=== PATIENT | female | born 1960 | race Caucasian/White ===

== ENCOUNTER 2016-10-06 11:43 | Emergency (ER) | payer OTHER ==
[2016-10-06 12:23] VITALS: BP 127/96
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
== END 2016-10-06 12:42 | disposition short-term general hospital (02) ==
LOC: UCEAST 11:43
DX: R42 Dizziness and giddiness (principal); R41.82 Altered mental status, unspecified; J45.909 Unspecified asthma, uncomplicated; G43.909 Migraine, unspecified, not intractable, without status migrainosus; F32.9 Major depressive disorder, single episode, unspecified; F41.9 Anxiety disorder, unspecified; Z90.49 Acquired absence of other specified parts of digestive tract; Z88.1 Allergy status to other antibiotic agents; Z88.5 Allergy status to narcotic agent; Z88.0 Allergy status to penicillin; Z88.2 Allergy status to sulfonamides; Z91.048 Other nonmedicinal substance allergy status
CPT/HCPCS: 93005; 99213; G0463

== ENCOUNTER 2016-10-06 13:10 | Emergency (ER) | payer OTHER ==
[2016-10-06] MEDS ORDERED: Diazepam TAB(*) 5 MG PO ONE (14:54)
[2016-10-06] MEDS ORDERED: NS 0.9% 1000 ML* 1,000 ML IV ONE (14:54)
[2016-10-06 15:11] LABS: Hematocrit 39 % (35-47); Hemoglobin 12.7 g/dl (12.0-16.0); Mean Corpuscular HGB Conc 33 g/dl (31-36); Mean Corpuscular Hemoglobin 31 pg (27-31); Mean Corpuscular Volume 93 fL (80-97); Mean Platelet Volume 9 um3 (7.4-10.4); Red Blood Count 4.13 10^6/ul (4.0-5.4); Red Cell Distribution Width 14 % (10.5-15); White Blood Count 5.7 10^3/ul (3.5-10.8)
--- NOTE | 2016-10-06 15:26 | RAD ---
Indication: Ataxia. Loss of balance. Memory loss. Question CVA or intracranial hemorrhage. Comparison: September 26, 2015 CT. Technique: Noncontrast CT vertex of skull through foramen magnum. Report: The sulci, ventricles, and basal cisterns are normal for age. Knight matter white matter differentiation is preserved without evidence for edema. No intra or extra axial hemorrhage, mass, or fluid collection detected. Unremarkable visualized orbital contents. Unremarkable calvarium and skull base. Unremarkable scalp. The visualized paranasal sinuses and mastoid air spaces are clear. IMPRESSION: Negative unenhanced head CT.
[2016-10-06 15:27] LABS: Albumin 3.8 g/dL (3.2-5.2); BUN/Creatinine Ratio 14.5 (8-20); Calcium 8.8 mg/dL (8.6-10.3); EGFR African American 91.8 (>60); EGFR Non-African American 71.4 (>60); Globulin 2.9 g/dL (2-4); Magnesium 2.2 mg/dL (1.9-2.7); Potassium 3.4 mmol/L (3.5-5.0); Total Bilirubin 0.4 mg/dL (0.2-1.0); Total Protein 6.7 g/dL (6.4-8.9)
--- NOTE | 2016-10-06 15:30 | RAD ---
Indication: Loss of balance, memory loss. CT of the cervical spine was obtained in the axial plane. Sagittal and coronal reconstructed images were obtained. Mastoid air cells and paranasal sinuses are unremarkable. The C1 ring is intact. No fractures identified. Degenerative changes of the atlantoaxial joint is noted. At C2-C3, C3-C4 there is no disc protrusion. No central foraminal stenosis is noted. At C4-C5 minimal ventral osteophyte formation is noted. No dorsal osteophyte formation is noted. No central or foraminal stenosis is noted. At C5-C6 minimal ventral osteophyte formation is noted. No central or foraminal stenosis is noted. At C6-C7 no focal protrusion is identified. No central or foraminal stenosis is noted. At C7-T1 no disc protrusion is identified. The lung apices are grossly unremarkable. IMPRESSION: NO FRACTURE OF THE CERVICAL SPINE IS NOTED. DEGENERATIVE JOINT DISEASE AT THE ATLANTOAXIAL JOINT IS NOTED. MINIMAL DEGENERATIVE DISC DISEASE WITHOUT PROTRUSION OR CENTRAL OR FORAMINAL STENOSIS IS NOTED AT C4-C5, C5-C6 AND C6-C7.
[2016-10-06 15:58] LABS: TSH (Thyroid Stimulating Horm) 1.63 mcIU/mL (0.34-5.60)
[2016-10-06 16:04] VITALS: BP 117/71
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
== END 2016-10-06 16:37 | disposition home or self-care (01) ==
LOC: ED 13:10
DX: H83.09 Labyrinthitis, unspecified ear (principal); S16.1XXA Strain of muscle, fascia and tendon at neck level, initial encounter; X50.9XXA Other and unspecified overexertion or strenuous movements or postures, initial encounter; Y92.9 Unspecified place or not applicable; M50.320 Other cervical disc degeneration, mid-cervical region, unspecified level
CPT/HCPCS: 36415; 70450; 72125; 80053; 83605; 83735; 84443; 84484; 85025; 93005; 96360; 99283; A9270-GY

== ENCOUNTER 2017-03-13 21:09 | Emergency (ER) | payer OTHER ==
[2017-03-13 21:24] VITALS: BP 115/56
[2017-03-14] MEDS ORDERED: Acetaminophen ADULT LIQ* 650 MG/20.3 ML UDC PO ONE (00:18)
--- NOTE | 2017-03-14 00:36 | ED ---
Lower Extremity - HPI Summary HPI Summary: Pt here w/ Rt ankle pain which she noticed after waking and walking around this morning. Has developed swelling along the lateral aspect and has tightness going into leg as day went on. Has pain with weight bearing but is able to do so. Denies redness, numbness, tingling, weakness. No known injury or overuse and no h/o injury here. Denies gout and no recent use of anbx or steroids. H/o Left ankle pain last year around this time w/o known cause. Was tested for infection, Lyme, and gout then - all negative. NOTE: pt has GERD w/ dysphagia and scheduled to have endoscopy in the morning. Multiple drug allergies. When asked about reactions for each, she simply states "my throat closes". - History of Current Complaint Chief Complaint: EDExtremityLower Stated Complaint: RT ANKLE INJURY Time Seen by Provider: 03/13/17 23:52 Hx Obtained From: Patient, Family/Ware Server - friend Hx Last Menstrual Period: tubal Pain Intensity: 8 - Allergies/Home Medications Allergies/Adverse Reactions: Allergies Allergy/AdvReac Type Severity Reaction Status Date / Time Adhesive Tape Allergy Rash Verified 03/13/17 21:26 Cephalexin [From Keflex] Allergy Hives/Diff. Verified 03/13/17 21:26 Breathing/I tching Ketorolac Tromethamine Allergy Vomiting Verified 03/13/17 21:26 [From Toradol] Oxycodone [From Percocet] Allergy Swelling Verified 03/13/17 21:26 Of Face,Lips,& Throat Penicillins [PCN] Allergy Hives/Diff. Verified 03/13/17 21:26 Breathing/I tching Sulfa Drugs Allergy Hives/Diff. Verified 03/13/17 21:26 Breathing/I tching Tigecycline [From Tygacil] Allergy Hives/Diff. Verified 03/13/17 21:26 Breathing/I tching Hydromorphone [From Dilaudid] AdvReac Hives/Diff. Verified 03/13/17 21:26 Breathing/I tching Morphine AdvReac Hives/Diff. Verified 03/13/17 21:26 Breathing/I tching PMH/Surg Hx/FS Hx/Imm Hx Previously Healthy: Yes Endocrine/Hematology History: Reports: Hx Anemia Denies: Hx Anticoagulant Therapy, Hx Diabetes, Hx Systemic Lupus Erythematosus, Hx Thyroid Disease, Autoimmune Disease Cardiovascular History: Denies: Hx Hypertension, Hx Pacemaker/ICD Respiratory History: Reports: Hx Asthma Denies: Hx Chronic Obstructive Pulmonary Disease (COPD) GI History: Reports: Hx Gastroesophageal Reflux Disease - REPAIRED IN 2010- WITH REVISION OF LAP BANDING, Hx Hiatal Hernia - REPAIRED IN 2010- WITH REVISION OF LAP BANDING Denies: Hx Ulcer History: Denies: Hx Dialysis, Hx Renal Disease Musculoskeletal History: Reports: Hx Arthritis - BACK, LEFT SHOULDER Sensory History: Reports: Hx Contacts or Glasses Denies: Hx Hearing Aid Opthamlomology History: Reports: Hx Contacts or Glasses Neurological History: Reports: Hx Headaches, Hx Migraine - OCCASION- TREATS WITH REST AND TYLENOL, Other Neuro Impairments/Disorders - 3 SX'S FUSIONS L SPINE MOST RECENT 12 [place] Denies: Hx Dementia, Hx Seizures Psychiatric History: Reports: Hx Anxiety - ON MEDICATION FOR, Hx Depression Denies: Hx Panic Disorder, Hx Substance Abuse - Surgical History Surgery Procedure, Year, and Place: LUMBAR SURGERY X 3 - 2011;. GALLBLADDER REMOVED ;. TONSILECTOMY ;. TUBAL LIGATION ;. LAPBAND 2007 AND REVISION 2010; . POLYPS/CYSTS REMOVED FRON UTERUS & CERVIX ;. ANAL FISSURE;. PINKY FINGER RIGHT CUT TENDON/REPAIR ; Hx Anesthesia Reactions: Yes - RESPIRATIONS VERY LOW- WITH SURGERIES- - Immunization History Date of Tetanus Vaccine: unknnown Infectious Disease History: No Infectious Disease History: Denies: Hx Clostridium Difficile, Hx Hepatitis, Hx Human Immunodeficiency Virus (HIV), Hx of Known/Suspected MRSA, Hx Shingles, Hx Tuberculosis, Hx Known/ Suspected VRE, Hx Known/Suspected VRSA, History Other Infectious Disease, Traveled Outside the [place] in Last 30 Days - Family History Known Family History: Positive: Other - mother and sister have gout Negative: Diabetes Family History: negative for DM2 - Social History Occupation: Disabled - back issues Lives: Alone Alcohol Use: None Hx Substance Use: No Substance Use Type: Reports: None Hx Tobacco Use: No Smoking Status (MU): Never Smoked Tobacco Review of Systems Constitutional: Negative Negative: Fever, Chills, Fatigue Cardiovascular: Negative Negative: Palpitations, Chest Pain Respiratory: Negative Negative: Shortness Of Breath, Cough Gastrointestinal: Negative Positive: no symptoms reported Musculoskeletal: Other - see HPI Skin: Negative Negative: Rash, Bruising Neurological: Negative Psychological: Normal All Other Systems Reviewed And Are Negative: Yes Physical Exam Triage Information Reviewed: Yes Vital Signs On Initial Exam: Initial Vitals Temp Pulse Resp BP Pulse Ox 97.8 F 74 16 115/56 97 03/13/17 21:20 03/13/17 21:20 03/13/17 21:20 03/13/17 21:20 03/13/17 21:20 Vital Signs Reviewed: Yes Appearance: Positive: Well-Appearing, No Pain Distress, Obese Skin: Positive: Warm, Dry - no erythema, no ecchymosis, no fever to touch over Rt lateral malleolus but has mild edema here Head/Face: Positive: Normal Head/Face Inspection Eyes: Positive: EOMI ENT: Positive: Hearing grossly normal Respiratory/Lung Sounds: Positive: Breath Sounds Present Cardiovascular: Positive: Pulses are Symmetrical in both Upper and Lower Extremities. Negative: Leg Edema Left - (-) Natalee's B/L, Leg Edema Right Musculoskeletal: Positive: Normal, Strength/ROM Intact, Pain @ - pt reports Rt anterior ankle joint is tender and sore; lateral malleolus w/ mild TTP; MT's are NTTP Neurological: Positive: Normal, Sensory/Motor Intact, Alert, Oriented to Person Place, Time Psychiatric: Positive: Normal - Emmett Coma Scale Coma Scale Total: 15 Diagnostics - Vital Signs Vital Signs Temp Pulse Resp BP Pulse Ox 03/13/17 21:20 97.8 F 74 16 115/56 97 - Laboratory Diagnostic Studies Comment: wet read Rt ankle: no acute fx or dislocation Lab Statement: Any lab studies that have been ordered have been reviewed, and results considered in the medical decision making process. Lower Extremity Course/Dx - Course Course Of Treatment: Definitive cause of ankle swelling is unknown at this time however does not appear to be infected or with gout so no labs were drawn. Appears to have mild edema about the lateral aspect which could be chronic or acute but does not appear to be of significant pathology from an emergency standpoint. Offered pt ROSALINA wrap and crutches - she will f/u w/ PCP. Reviewed danger s/sx of when to return to ED. - Diagnoses Provider Diagnoses: Right ankle swelling Discharge - Discharge Plan Condition: Stable Disposition: HOME Patient Education Materials: Arthralgia (ED), Crutch Instructions (ED) Referrals: Lui Samson MD [Primary Care Provider] - Additional Instructions: Rest, ice, elevate Use crutches to avoid weight bearing for pain - when you do bear weight, use supportive footwear to prevent instability You may take liquid acetaminophen for pain Follow-up with PCP - call to schedule an appointment *If you develop redness, streaking, warmth, fever, chills, return to ED
--- NOTE | 2017-03-14 08:10 | RAD ---
HISTORY: Right ankle swelling pain with weightbearing COMPARISONS: April 06, 2010 VIEWS: 3, Frontal, lateral, and oblique views of the right ankle FINDINGS: BONE DENSITY: Normal. BONES: There is no displaced fracture. There is a small plantar calcaneal enthesophyte. JOINTS: There is no arthropathy. ALIGNMENT: There is no dislocation. SOFT TISSUES: Unremarkable. OTHER FINDINGS: None. IMPRESSION: NO ACUTE OSSEOUS INJURY. IF SYMPTOMS PERSIST, RECOMMEND REPEAT IMAGING.
== END 2017-03-14 01:42 | disposition home or self-care (01) ==
LOC: ED 21:09
DX: M25.471 Effusion, right ankle (principal); D64.9 Anemia, unspecified; J45.909 Unspecified asthma, uncomplicated; K21.9 Gastro-esophageal reflux disease without esophagitis; G43.909 Migraine, unspecified, not intractable, without status migrainosus; E66.9 Obesity, unspecified; Z90.49 Acquired absence of other specified parts of digestive tract; Z88.1 Allergy status to other antibiotic agents; Z88.5 Allergy status to narcotic agent; Z88.0 Allergy status to penicillin; Z88.2 Allergy status to sulfonamides
CPT/HCPCS: 99282; A9270-GY

== ENCOUNTER 2017-05-20 15:49 | Emergency (ER) | payer OTHER ==
[2017-05-20 16:49] VITALS: BP 111/66
--- NOTE | 2017-05-20 16:51 | UC ---
Throat Pain/Nasal Jimi HPI - HPI Summary HPI Summary: 57 year old female presents with complains of cough and sore throat. - History of Current Complaint Chief Complaint: UCRespiratory Stated Complaint: COUGH,ST,EAR PAIN Time Seen by Provider: 05/20/17 16:50 Hx Obtained From: Patient Hx Last Menstrual Period: age 50 Onset/Duration: Sudden Onset Severity: Moderate Pain Scale Used: 0-10 Numeric Cough: Nonproductive Associated Signs & Symptoms: Positive: Negative - Epiglottits Risk Factors Epiglottis Risk Factors: Negative - Allergies/Home Medications Allergies/Adverse Reactions: Allergies Allergy/AdvReac Type Severity Reaction Status Date / Time Adhesive Tape Allergy Rash Verified 05/20/17 16:50 Cephalexin [From Keflex] Allergy Hives/Diff. Verified 05/20/17 16:50 Breathing/I tching Ketorolac Tromethamine Allergy Vomiting Verified 05/20/17 16:50 [From Toradol] Oxycodone [From Percocet] Allergy Swelling Verified 05/20/17 16:50 Of Face,Lips,& Throat Penicillins [PCN] Allergy Hives/Diff. Verified 05/20/17 16:50 Breathing/I tching Sulfa Drugs Allergy Hives/Diff. Verified 05/20/17 16:50 Breathing/I tching Tigecycline [From Tygacil] Allergy Hives/Diff. Verified 05/20/17 16:50 Breathing/I tching Hydromorphone [From Dilaudid] AdvReac Hives/Diff. Verified 05/20/17 16:50 Breathing/I tching Morphine AdvReac Hives/Diff. Verified 05/20/17 16:50 Breathing/I tching Home Medications: Home Medications Aspirin [Aspirin 81 MG TAB] 1 tab PO DAILY 05/20/17 [History Confirmed 05/20/17] PMH/Surg Hx/FS Hx/Imm Hx Previously Healthy: Yes Other History Of: Negative For: Anticoagulant Therapy - Surgical History Surgical History: Yes Surgery Procedure, Year, and Place: LUMBAR SURGERY X 3 - 2012;. GALLBLADDER REMOVED ;. TONSILECTOMY ;. TUBAL LIGATION ;. LAPBAND 2007 AND REVISION 2010; . POLYPS/CYSTS REMOVED FRON UTERUS & CERVIX ;. ANAL FISSURE;. PINKY FINGER RIGHT CUT TENDON/REPAIR ; - Family History Known Family History: Positive: Other - mother and sister have gout Negative: Diabetes Family History: negative for DM2 - Social History Alcohol Use: None Substance Use Type: None Smoking Status (MU): Never Smoked Tobacco Review of Systems Constitutional: Negative Skin: Negative Eyes: Negative ENT: Negative, Nasal Discharge Respiratory: Cough Cardiovascular: Negative Gastrointestinal: Negative Genitourinary: Negative Motor: Negative Neurovascular: Negative Musculoskeletal: Negative Neurological: Negative Psychological: Negative All Other Systems Reviewed And Are Negative: Yes Physical Exam Triage Information Reviewed: Yes Appearance: Well-Appearing Vital Signs: Initial Vital Signs Temp 37.0 C 05/20/17 16:44 Pulse 71 05/20/17 16:44 Resp 16 05/20/17 16:44 BP 111/66 05/20/17 16:44 Pulse Ox 98 05/20/17 16:44 Vital Signs Reviewed: Yes Eye Exam: Normal ENT Exam: Normal Dental Exam: Normal Neck exam: Normal Neck: Positive: 1 Respiratory: Positive: Wheezing Cardiovascular Exam: Normal Abdominal Exam: Normal Musculoskeletal Exam: Normal Neurological Exam: Normal Psychological Exam: Normal Skin Exam: Normal Throat Pain/Nasal Course/Dx - Differential Dx/Diagnosis Provider Diagnoses: cough. wheezing Discharge - Discharge Plan Condition: Stable Disposition: HOME Prescriptions: Albuterol HFA INHALER* [Ventolin HFA Inhaler*] 1 puff INH Q6H PRN #1 mdi PRN Reason: Wheezing LoraTADine TAB(NF) [Claritin 10 MG TAB(NF)] 10 mg PO DAILY #30 tab Methylprednisolone [Medrol Dosepak 4 MG*] 4 mg PO .SEE ELDER INSTRUCTION #21 tab Patient Education Materials: Allergic Rhinitis (ED) Referrals: Lui Samson MD [Primary Care Provider] -
== END 2017-05-20 17:55 | disposition home or self-care (01) ==
LOC: UCEAST 15:49
DX: R05 Cough (principal); R06.2 Wheezing; J02.9 Acute pharyngitis, unspecified; H92.09 Otalgia, unspecified ear; Z88.8 Allergy status to other drugs, medicaments and biological substances; Z88.1 Allergy status to other antibiotic agents; Z88.5 Allergy status to narcotic agent; Z88.0 Allergy status to penicillin; Z88.2 Allergy status to sulfonamides
CPT/HCPCS: 87651; 99212; G0463

== ENCOUNTER 2017-08-09 18:43 | Emergency (ER) | payer OTHER ==
--- OUTSIDE RECORDS SUMMARY | 2017-08-09 19:32 | XMS REPORT ---
:1960 External Reference #:[id number] Author Organization [facility] Address [address] [address] Phone [phone] Care Team Providers Name Role Phone Lui Samson MD Primary Care Physician Unavailable Payers Type Date Identification Numbers Payment Provider Subscriber Commercial Policy Number: [id number] Agustín [employer] Number: [id number] [address] PayID: [id number] [place] [address] Commercial Effective: Policy Number: Dennis[employer] Keena Coates 2012 [id number] Medicaid Expires: 2012 PayID: [id number] [address] [address] [place] [address] Commercial Expires: 2012 Policy Number: [id number] Agustín Coates Group Name: CHAS# [id number] [address] PayID: [id number] [place] [address] Problems Date Description Provider Status Onset: 04/12/2011 Bariatric Surgery Status Tarsha Underwood M.D. Active Onset: 06/09/2011 Mild recurrent major depression Tarsha Underwood M.D. Active Onset: 01/08/2012 Asthma without status asthmaticus Tarsha Undewrood M.D. Active Onset: 06/24/2014 Low back pain Kevin Cottrell M.D. Active Onset: 09/05/2016 Gastroesophageal reflux disease Lui Samson M.D. Active Onset: 10/17/2016 Mixed hyperlipidemia Lui Samson M.D. Active Onset: 01/30/2017 Essential hypertension Lui Samson M.D. Active Onset: 01/30/2017 Obesity Lui Samson M.D. Active Onset: 02/13/2017 Migraine without aura, not Morenita Salinas MD Active refractory Onset: 07/17/2017 Insomnia Lui Samson M.D. Active Onset: 10/09/2016 Transient cerebral ischemia Lui Samson M.D. Inactive Inactive: 10/13/2016 Onset: 04/12/2011 Tietze's disease Tarsha Underwood M.D. Inactive Inactive: 07/17/2017 Onset: 06/23/2011 Localized, primary osteoarthritis of the Tarsha Underwood M.D. Inactive shoulder region Inactive: 07/17/2017 Onset: 08/17/2015 Thoracic and lumbosacral neuritis Lui Samson M.D. Inactive Inactive: 07/17/2017 Onset: 08/17/2015 Arthralgia of the pelvic region and Lui Samson M.D. Inactive thigh Inactive: 07/17/2017 Onset: 09/05/2016 Lateral epicondylitis Lui Samson M.D. Inactive Inactive: 07/17/2017 Onset: 10/17/2016 Hematuria syndrome Lui Samson M.D. Inactive Inactive: 07/17/2017 Onset: 11/03/2016 Abnormal results function studies of Morenita Salinas MD Inactive central nervous system Inactive: 07/17/2017 Onset: 11/03/2016 Dizziness and giddiness Morenita Salinas MD Inactive Inactive: 07/17/2017 Onset: 06/09/2011 Shoulder joint pain Tarsha Underwood M.D. Inactive Inactive: 07/17/2017 Onset: 09/13/2011 Disorder of lumbar disc Tarsha Underwood M.D. Inactive Inactive: 07/17/2017 Onset: 02/13/2017 Dysphagia Morenita Salinas MD Inactive Inactive: 07/17/2017 Onset: 03/29/2011 Deficiency anemias Tarsha Underwood M.D. 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 5 children, many still in local area, most doing very well (jobs, college, etc) and she is quite proud, was single parent denies drugs, etoh Allergies, Adverse Reactions, Alerts Date Description Reaction Status Severity Comments 03/29/2011 Sulfa hives, throat closes active Mild to Moderate 03/29/2011 Keflex hives, throat closes active Mild to Moderate 03/29/2011 Tygacil hives, throat closes active Mild to Moderate 03/29/2011 Dilantin throat closes, hives active Mild to Moderate 03/29/2011 Penicillin hives, throat closes active Mild to Moderate 07/28/2011 Morphine low resp. rate active 07/28/2011 Tape Urticaria active Mild to Moderate paper tape 03/03/2014 Percogesic active Severe 06/24/2014 Percocet Anaphylaxis active Severe Medications Medication Date Status Form Strength Qnty SIG Indications Ordering Provider Zolpidem 07/17 Active Tablets 5mg 30tab 1 tab G47.00 Gibson Tartrate s daily at [place], bedtime M.D. Dulera 07/17 Active Aerosol 200-5mcg/ 8.800 2 puff J45.909 Act gm twice a [place], day M.D. Montelukast 07/17 Active Tablets 10mg 30tab once daily J45.909 Lui Sodium s Karol Samson Famotidine 01/30 Active Tablets 40mg 30tab 1 by mouth K21.9 s every day [place], 1 hour M.D. after dinner Ventolin HFA 01/30 Active Aerosol 108(90Bas 8gm 2 puffs by J45.909 e) mouth four [place], mcg/Act times a M.D. day as needed Wrist Splint 07/05 Active Misc 1unit wear daily M79.642 Darin s remove to Pashto, LASER SPECIALIST shower x2 weeks Cane/Aluminum/Ad 08/16 Active Misc 1unit diagnosis: M51.16 Lui justable/Bronze /2015 s lumbar [place], Tone/Standard disc M.D. Handle disease Jobst Trouser 01/07 Active Misc 1Pair 1 pair prn 782.3 Eusebio 8-15MMHG/Knee /2011 to lower Flores, LASER SPECIALIST High/Women/Mediu legs m Citalopram Active Tablets 20mg 30tab 1 every Alfredo Hydrobromide / s day Shahnaz Trevizo M.D.,FACP Tylenol PM Extra Active Tablets 500-25mg 1 tab by Unknown Strength /0000 mouth every 6 hours as needed Aspirin Adult Active Tablets DR 81mg 1 by mouth Unknown Low Dose /0000 every day Levofloxacin 03/27 Hx Tablets 500mg 10tab once daily J06.9 s Josh Samson M.D. 04/10 Rizatriptan 02/13 Hx Tablets 5mg 9tabs 1 at onset G43.009 Morenita Benzoate /2016 Dispers of MD Brad - migraine. 04/10 in 2 hours if needed. do not use more than 2x/week Zolpidem 02/05 Hx Tablets 5mg 30tab 1 tab G47.00 Lui Tartrate s daily at [facility], - bedtime M.D. 07/17 Zolpidem 01/30 Hx Tablets 10mg 30tab 1/2 to 1 G47.00 Gibson Tartrate s tab by Mal[place], - mouth M.D. 02/05 night at bedtime as needed Prednisone 11/29 Hx Tablets 50mg 3tabs take 1 tab Morenita by mouth MD Brad - 13 hours, 02/12 7hrs and hour before ct Diphenhydramine 11/29 Hx Capsules 50mg 1caps 1 by mouth Morenita HCL 1 hour MD Brad - before 02/12 contrast. Potassium 10/17 Hx Tablets 75mg 30tab 1 by mouth Alfredo s every day Josh Hollingsworth M.D.,[facility] 10/19 Klor-Con 10 10/13 Hx Tablets ER 10Meq 30tab 1 by mouth s every day Josh Hollingsworth M.D.,[facility] 02/12 Diclofenac 09/05 Hx Gel 1% 100gm apply 2 M77.11 Lui times [place], - daily M.D. 10/19 Meloxicam 09/05 Hx Tablets 15mg 30tab once daily M77.11 s with food [place], - M.DDoug 10/19 Ibuprofen 07/05 Hx Tablets 400mg 90tab 1 tab by M79.642 Darin s mouth MICHAELLE Luna - every 6- 8 three times a day as needed: take w/ food Clarithromycin 06/30 Hx Tablets 500mg 14tab 1 by mouth s twice a Shahnaz Trevizo, - day for 7 M.DDoug,[facility] Cheratussin ac 06/30 Hx Syrup 100-10mg/ 236ml 10 5ML milliliter Shahnaz Trevizo, - s by mouth Deanne.Shahnaz,[facility] 10/13 four times a day as needed Pantoprazole 01/[address] 20mg 60tab 1 tab K21.9 Lui Sodium s twice a [place], - day M.D. 02/12 Rizatriptan 01/10 Hx Tablets 10mg 12tab use at G43.019 Lui Benzoate /2015 s onset of [place], - headache M.D. 10/13 after 2 h as needed Metoprolol 01/10 Hx Tablets 25mg 60tab 1 by mouth G43.019 Lui Tartrate /2015 s twice a [place], - day M.D. 07/02 Sumatriptan 12/31 Hx Tablets 25mg 9tabs 1 tab Other Q8hrs prn Ordering - migraine Provider 01/10 Macrobid 12/31 Hx Capsules 100mg 9caps 1 tab by Other mouth Ordering - twice a Provider 01/05 day x days Hydrocortisone 12/31 Hx Ointment 0.2% 15gm apply to Other Val rash bid x Ordering - 2 weeks Provider 01/10 Cipro 12/09 Hx Tablets 250mg 14tab 1 tablet N39.0 s by mouth MICHAELLE Luna - twice a 01/10 day x's days Flovent HFA 11/10 Hx Aerosol 110mcg/Ac 1unit 2 puffs t s twice [place], - daily M.D. 07/17 Azithromycin 11/08 Hx Tablets 250mg 6tabs 2 tab J20.9 today and [place], - then 1tab M.D. 12/02 Zyrtec Allergy 10/31 Hx Tablets 10mg 30tab 1 by mouth J30.9 s every day MICHAELLE Luna - for the 01/10 next 3- weeks, then as needed Meloxicam 08/16 Hx Tablets 15mg 30tab once daily M25.552 s with food [place], - M.D. 01/10 Hydrocodone-Acet 08/16 Hx Tablets 5-325mg 45tab 1 tab M51.16 Lui aminophen s every 8h [place], - as needed M.D. 10/13 Levofloxacin 04/08 Hx Tablets 500mg 7tabs 1 tablt by J06.9 mouth Brody, - every day M.D. 06/04 Levofloxacin 12/25 Hx Tablets 500mg 5tabs 1 tablt by J06.9 mouth Brody, - every day M.D. 03/02 Pantoprazole 09/[address] 40mg 30tab 1 by mouth K21.9 Alcides Sodium s every day Brody, - M.D. 01/10 Naproxen 08/25 Hx Tablets 500mg 30tab 1 tablet M54.89 Alcides s by mouth Brody, - twice a M.D. 08/16 day foods as needed pain Cyclobenzaprine 08/25 Hx Tablets 10mg 90tab one by M54.89 Lui HCL s mouth [place], - three M.D. 10/19 times day as needed spasm Asmanex 06/09 Hx Aerosol 220mcg/In 1unit 1 puff po J45.20 Darin Livingston 120 h s bid MICHAELLE Luna Metered Doses - 11/10 Lasix 05/12 Hx Tablets 20mg 5tabs 1 tablet po daily Brody, - in am M.D. 08/20 Cyclobenzaprine 04/24 Hx Tablets 10mg 60tab one by 722.93 Alcides HCL s mouth Brody, - three M.D. 08/26 times day as needed spasm Ibuprofen 03/31 Hx Tablets 800mg 60tab by mouth 719.42 s three Brody, - times a M.D. 08/16 day needed Mucinex 03/03 Hx Tablets ER 600mg 60tab 1 tab by 465.8 12HR s mouth q12 MICHAELLE Flores - hours 06/09 Omeprazole 01/[address] 20mg 30cap 1 by mouth 530.81 Johana /2014 s every day Varn, N.P. - 09/08 Naproxen 09/12 Hx Tablets 375mg 60tab take 1 719.42 s tablet Kj, - twice M.D. 03/31 daily for pain control Ranitidine HCL 09/02 Hx Capsules 150mg 60cap one 535.00 s capsule Varn, N.P. - every 12 Iron 06/27 Hx Tablets 325(65Fe) 90tab 1 po qd mg s Kj, - M.D. 06/27 Proair HFA 06/27 Hx Aerosol 108(90Bas 1unit 2 puffs by Darin e) s mouth MICHAELLE Luna - mcg/Act every 4 10/19 hours needed Cyclobenzaprine 06/27 Hx Tablets 5mg 60tab Take 1-2 722.93 s tablets at Underwood, - night for M.D. 04/24 back pain Gabapentin 06/27 Hx Capsules 100mg 90cap take 1 M54.89 s tablet Ronn, - three to M.D. 08/16 four times daily for pain Cyclobenzaprine 03/21 Hx Tablets 5mg 60tab Take 1-2 722.93 Tarsha HCL s tablet Kj, - three M.D. 06/27 times daily for back pain Gabapentin 03/21 Hx Capsules 300mg 30cap Take 1-2 724.5 s tablets at Underwood, - night M.D. 06/27 Percocet 12/10 Hx Tablets 5-325mg 30tab 1 po qhs 724.5 s prn pain Kj, - M.D. 06/27 Carafate 08/30 Hx Suspension 1GM/10ML 420ml take 2 530.12 teaspoonfu Kj, - ls by M.D. 09/16 mouth times a day before meals and at bedtime Calcium 08/05 Hx Chewtabs 260mg 30uni take 1-2 530.12 Carbonate ts tablets Kj, - every 4-6 M.D. 08/30 hours as needed for heartburn Carafate 08/05 Hx Suspension 1GM/10ML 420ml take 2 530.12 teaspoonfu Kj, - ls by M.DDoug 08/30 mouth times a day before meals and at bedtime Acetaminophen 04/24 Hx Capsules 500mg 100ca take 2 ps tablets Kj, - three M.D. 12/10 daily as needed Oxycodone HCL 03/15 Hx Capsules 5mg 28cap 1-2 722.93 s capsules Kj, - at night M.D. 05/31 as needed for pain Trazodone HCL 03/15 Hx Tablets 50mg 30tab take 05/22 722.93 s to 1 Kj, - tablet M.D. 04/03 night as needed for sleep Iron 01/30 Hx Tablets 325(65Fe) 60tab 1 tablet 281.9 mg s by mouth Kj, - twice M.D. 05/31 daily Proair HFA 11/16 Hx Aerosol 108(90Bas 1unit 2 puffs po e) mcg/ac s q4h prn Josh Underwood.DDoug 06/27 Ibuprofen 10/31 Hx Tablets 800mg 60tab take 1 s tablet Kj, - three M.DDoug 04/24 daily with food for 20 days. Cyclobenzaprine 10/12 Hx Tablets 5mg 60tab Take 1-2 722.93 Tarsha HCL s tablet Kj, - three M.D. 02/03 times daily for back pain Tramadol HCL 10/12 Hx Tablets 50mg 60tab take 1-2 722.93 Tarsha s tablets by Kj, - mouth M.D. 08/30 every hours as needed Hydrocodone/Acet 07/11 Hx Tablets 5-325mg 30tab 1 tablet 724.5 Milagros aminophen s every 4 - Cotton, - 6 hours as M.D. 09/12 needed for pain Cyclobenzaprine 07/11 Hx Tablets 5mg 30tab 1 by mouth 724.5 Milagros HCL s at bedtime Patrick, - as needed M.D. 09/12 for back pain Medrol Dosepak 07/11 Hx Tablets 4mg 1pak as 724.5 Milagros directed Josh Nguyen M.DDoug 09/12 Citalopram 06/09 Hx Tablets 20mg 30tab 1 po qd 296.31 Tarsha Hydrobromide s Josh Underwood M.D. 09/02 Citalopram 05/10 Hx Tablets 10mg 30tab take 2 296.31 Tarsha Hydrobromide s tablet Kj, - daily. M.D. 07/05 Lexapro 04/26 Hx Tablets 10mg 60tab 1 tablet 296.31 Tarsha s daily for Kj, - 1 week, M.D. 05/10 then tablets daily Ibuprofen 04/12 Hx Tablets 600mg 21tab 1 tablet 733.6 s margarette Underwood, - times M.D. 05/10 daily with food x 7 days Vitamin D-1000 04/12 Hx Tablets 1000Unit 90tab 1 po qd V45.86 Josh Cortes M.D. 09/12 Multivitamins 04/12 Hx Tablets 90tab 1 po qd V45.86 s Josh Underwood M.D. 05/10 Calcium Citrate 04/12 Hx Tablets 950mg 180ta Take 2 V45.86 bs tablets Kj, - twice M.D. 09/12 Iron Supplement 03/29 Hx Tablets 375mg po qd Josh Underwood M.DDoug 04/12 Iron 03/29 Hx Tablets 325(65Fe) 60tab 1 tablet 281.9 mg s by mouth Kj - twice M.D. 04/26 Ambien Hx Tablets 5mg 30tab 1 po Unknown /0000 s tablet at - bedtime 01/07 prn Trazodone HCL Hx Tablets 50mg 30tab take 05/22 Unknown /0000 s tablet at - bedtime, 09/12 1 time Vicodin Hx Tablets 5-500mg 30tab 1-2 by Unknown /0000 s mouth - every 4-6 needed for pain Prilosec Hx Capsules DR 20mg 30cap 1 po qd Unknown /0000 s - 09/12 Vitamin C Hi Hx Capsules ER 500mg 2 po qd Unknown Potency /0000 - 08/05 Vitamin B-12 TR Hx Tablets ER 1000mcg 1 po qd Unknown /0000 - 08/05 Oxycodone/Acetam Hx Tablets 5-325mg 60tab 2 tabs po 722.93 Unknown inophen /0000 s q 4 hrs - prn pain 03/15 Diazepam Hx Tabs 5mg 1 po qd Unknown /0000 - 04/03 Aspirin Hx Chewtabs 81mg 30uni does not Unknown Childrens /0000 ts take. - 08/[address] 40mg 90cap 1 po qd Unknown /0000 s - 12/10 Percocet Hx Tablets 5-325mg 60tab 1-2 by Unknown /0000 s mouth - every 4 to 03/03 6 hours needed pain Iron 00 Hx Tablets 325(65Fe) 1 by mouth Unknown /0000 mg every day - 06/24 B-12 00 Hx Tablets Sub 500mcg 2 by mouth Unknown Microlozenge /0000 every day - 04/08 Biotin 00 Hx Tablets 1000mcg Is Not Unknown /0000 USINGonce - a day 10/13 Vitamin E 00 Hx Capsules 100Unit Is Not Unknown /0000 USINGonce - a day 10/13 Vitamin 00/ Hx Tablets 1 by mouth Unknown B-Complex /0000 every day - 10/13 Ranitidine HCL 00 Hx Tablets 75mg 1 daily in Unknown /0000 the - morning 03/27 Immunizations CPT Code Status Date Vaccine Lot # [id number] Given 09/28/2015 Pneumonia Vaccine [id number] Given 03/31/2014 Flu Vaccine Split Virus Preservative Free For [id number] Indiv 3Yr Older Vital Signs Date Vital Result Comment 07/17/2017 Weight 225.00 lb Heart Rate 71 /min BP Systolic Sitting 110 mmHg BP Diastolic Sitting 70 mmHg Body Temperature 97.5 F O2 % BldC Oximetry 94 % 07/02/2017 Height 65 inches 5'5" Weight 225.00 lb Heart Rate 74 /min BP Systolic 120 mmHg BP Diastolic 70 mmHg Respiratory Rate 18 /min Body Temperature 97.0 F BMI (Body Mass Index) 37.4 kg/m2 04/10/2017 Weight 216.50 lb Heart Rate 73 /min BP Systolic Sitting 128 mmHg BP Diastolic Sitting 74 mmHg O2 % BldC Oximetry 94 % 03/27/2017 Height 65 inches 5'5" Weight 214.50 lb Heart Rate 89 /min BP Systolic 136 mmHg BP Diastolic 66 mmHg Body Temperature 98.3 F O2 % BldC Oximetry 97 % BMI (Body Mass Index) 35.7 kg/m2 02/13/2017 Height 65 inches 5'5" Weight 211.38 lb Heart Rate 80 /min BP Systolic 106 mmHg BP Diastolic 78 mmHg BMI (Body Mass Index) 35.2 kg/m2 01/30/2017 Height 65 inches 5'5" Weight 211.00 lb Heart Rate 77 /min BP Systolic 128 mmHg BP Diastolic 76 mmHg Body Temperature 98.1 F O2 % BldC Oximetry 96 % BMI (Body Mass Index) 35.1 kg/m2 11/03/2016 Height 65 inches 5'5" Weight 210.12 lb Heart Rate 74 /min BP Systolic Sitting 98 mmHg BP Diastolic Sitting 72 mmHg Respiratory Rate 17 /min BMI (Body Mass Index) 35.0 kg/m2 10/17/2016 Height 65 inches 5'5" Weight 210.50 lb Heart Rate 76 /min BP Systolic 112 mmHg BP Diastolic 68 mmHg Body Temperature 97.3 F O2 % BldC Oximetry 96 % BMI (Body Mass Index) 35.0 kg/m2 10/13/2016 Weight 211.12 lb Heart Rate 70 /min BP Systolic 118 mmHg BP Diastolic 72 mmHg Body Temperature 97.3 F O2 % BldC Oximetry 97 % 10/09/2016 Weight 210.38 lb Heart Rate 71 /min BP Systolic Sitting 120 mmHg BP Diastolic Sitting 88 mmHg Body Temperature 98.0 F O2 % BldC Oximetry 98 % 09/05/2016 Weight 207.50 lb Heart Rate 94 /min BP Systolic Sitting 100 mmHg BP Diastolic Sitting 70 mmHg Body Temperature 97.4 F O2 % BldC Oximetry 98 % 07/05/2016 Height 65 inches 5'5" Weight 204.12 lb Heart Rate 70 /min BP Systolic Sitting 108 mmHg BP Diastolic Sitting 64 mmHg Body Temperature 97.5 F O2 % BldC Oximetry 97 % BMI (Body Mass Index) 34.0 kg/m2 07/03/2016 Height 65 inches 5'5" Weight 206.00 lb Heart Rate 76 /min BP Systolic 124 mmHg BP Diastolic 80 mmHg Respiratory Rate 16 /min Body Temperature 98.0 F BMI (Body Mass Index) 34.3 kg/m2 06/30/2016 Weight 204.12 lb Heart Rate 78 /min BP Systolic Sitting 132 mmHg BP Diastolic Sitting 80 mmHg Body Temperature 98.8 F O2 % BldC Oximetry 97 % 01/11/2016 Weight 188.25 lb Heart Rate 72 /min BP Systolic Sitting 112 mmHg BP Diastolic Sitting 68 mmHg Body Temperature 98.4 F O2 % BldC Oximetry 96 % 12/10/2015 Height 65 inches 5'5" Weight 192.00 lb Heart Rate 71 /min BP Systolic 100 mmHg BP Diastolic 60 mmHg Body Temperature 97.8 F O2 % BldC Oximetry 98 % BMI (Body Mass Index) 31.9 kg/m2 12/03/2015 Height 65 inches 5'5" Weight 190.50 lb Heart Rate 61 /min BP Systolic Sitting 102 mmHg BP Diastolic Sitting 66 mmHg Respiratory Rate 16 /min Body Temperature 97.8 F Pain Level 6 Right mid to lower back and right hip O2 % BldC Oximetry 98 % BMI (Body Mass Index) 31.7 kg/m2 11/09/2015 Height 65 inches 5'5" Weight 191.00 lb Heart Rate 74 /min BP Systolic Sitting 110 mmHg BP Diastolic Sitting 70 mmHg Pain Level 4 4/10 pain scale O2 % BldC Oximetry 96 % BMI (Body Mass Index) 31.8 kg/m2 11/01/2015 Height 65 inches 5'5" Weight 192.00 lb Heart Rate 74 /min BP Systolic Sitting 122 mmHg BP Diastolic Sitting 68 mmHg Body Temperature 98.7 F O2 % BldC Oximetry 97 % BMI (Body Mass Index) 31.9 kg/m2 09/28/2015 Height 65 inches 5'5" Weight 196.00 lb Heart Rate 78 /min BP Systolic Sitting 112 mmHg BP Diastolic Sitting 70 mmHg Body Temperature 97.7 F O2 % BldC Oximetry 98 % BMI (Body Mass Index) 32.6 kg/m2 08/31/2015 Height 65 inches 5'5" Weight 198.00 lb Heart Rate 74 /min BP Systolic Sitting 110 mmHg BP Diastolic Sitting 72 mmHg Body Temperature 96.8 F Pain Level 6 6/10 O2 % BldC Oximetry 96 % BMI (Body Mass Index) 32.9 kg/m2 08/17/2015 Height 65 inches 5'5" Weight 198.00 lb Heart Rate 66 /min BP Systolic Sitting 112 mmHg BP Diastolic Sitting 78 mmHg Body Temperature 97.1 F Pain Level 8 8/10 O2 % BldC Oximetry 98 % BMI (Body Mass Index) 32.9 kg/m2 07/15/2015 Height 65 inches 5'5" Weight 198.00 lb BMI (Body Mass Index) 32.9 kg/m2 06/04/2015 Height 65 inches 5'5" Weight 200.25 lb Heart Rate 76 /min BP Systolic Sitting 104 mmHg BP Diastolic Sitting 64 mmHg Body Temperature 98.3 F O2 % BldC Oximetry 98 % BMI (Body Mass Index) 33.3 kg/m2 04/08/2015 Height 65 inches 5'5" Weight 207.50 lb Heart Rate 69 /min BP Systolic Sitting 112 mmHg BP Diastolic Sitting 58 mmHg Body Temperature 97.4 F O2 % BldC Oximetry 97 % BMI (Body Mass Index) 34.5 kg/m2 03/02/2015 Height 65 inches 5'5" Weight 209.50 lb Heart Rate 84 /min BP Systolic Sitting 116 mmHg BP Diastolic Sitting 64 mmHg Body Temperature 98.2 F O2 % BldC Oximetry 98 % BMI (Body Mass Index) 34.9 kg/m2 12/25/2014 Height 65 inches 5'5" Weight 208.00 lb Heart Rate 90 /min BP Systolic Sitting 106 mmHg BP Diastolic Sitting 78 mmHg Body Temperature 97.8 F O2 % BldC Oximetry 98 % BMI (Body Mass Index) 34.6 kg/m2 11/09/2014 Height 65 inches 5'5" Weight 211.00 lb Heart Rate 72 /min BP Systolic Sitting 120 mmHg BP Diastolic Sitting 70 mmHg Pain Level 4 back BMI (Body Mass Index) 35.1 kg/m2 09/08/2014 Height 65 inches 5'5" Weight 207.25 lb Heart Rate 70 /min BP Systolic Sitting 122 mmHg BP Diastolic Sitting 60 mmHg Body Temperature 97.7 F O2 % BldC Oximetry 96 % BMI (Body Mass Index) 34.5 kg/m2 08/26/2014 Height 65 inches 5'5" Weight 208.00 lb Heart Rate 60 /min BP Systolic 102 mmHg BP Diastolic 64 mmHg Pain Level 6 back BMI (Body Mass Index) 34.6 kg/m2 08/25/2014 Height 65 inches 5'5" Weight 210.12 lb Heart Rate 59 /min BP Systolic Sitting 108 mmHg BP Diastolic Sitting 70 mmHg Pain Level 10 10/10 O2 % BldC Oximetry 98 % BMI (Body Mass Index) 35.0 kg/m2 08/20/2014 Weight 210.00 lb Heart Rate 70 /min BP Systolic Sitting 96 mmHg BP Diastolic Sitting 72 mmHg Body Temperature 98.9 F 07/29/2014 Height 65 inches 5'5" Weight 213.00 lb Heart Rate 72 /min BP Systolic Sitting 100 mmHg BP Diastolic Sitting 60 mmHg Pain Level 6 back/r hip BMI (Body Mass Index) 35.4 kg/m2 06/24/2014 Height 65 inches 5'5" Weight 218.00 lb Heart Rate 76 /min BP Systolic Sitting 130 mmHg BP Diastolic Sitting 80 mmHg Pain Level 5 neck/back BMI (Body Mass Index) 36.3 kg/m2 06/09/2014 Weight 213.00 lb Heart Rate 76 /min BP Systolic Sitting 98 mmHg BP Diastolic Sitting 68 mmHg Body Temperature 97.2 F O2 % BldC Oximetry 98 % 04/24/2014 Weight 200.00 lb Heart Rate 76 /min BP Systolic Sitting 124 mmHg BP Diastolic Sitting 82 mmHg 03/31/2014 Height 65.75 inches 5'5.75" Weight 193.00 lb Heart Rate 70 /min BP Systolic Sitting 103 mmHg BP Diastolic Sitting 59 mmHg Body Temperature 98.0 F BMI (Body Mass Index) 31.4 kg/m2 03/03/2014 Height 65.75 inches 5'5.75" Weight 182.00 lb Heart Rate 68 /min BP Systolic Sitting 94 mmHg BP Diastolic Sitting 62 mmHg Body Temperature 98.7 F BMI (Body Mass Index) 29.6 kg/m2 01/27/2014 Weight 172.25 lb Heart Rate 60 /min BP Systolic Sitting 100 mmHg BP Diastolic Sitting 60 mmHg Body Temperature 97.5 F O2 % BldC Oximetry 97 % 01/06/2014 Weight 173.00 lb Heart Rate 84 /min BP Systolic Sitting 104 mmHg BP Diastolic Sitting 66 mmHg Body Temperature 96.8 F 10/31/2013 Height 65.75 inches 5'5.75" Weight 179.25 lb Heart Rate 84 /min BP Systolic Sitting 122 mmHg BP Diastolic Sitting 68 mmHg BMI (Body Mass Index) 29.1 kg/m2 09/30/2013 Weight 180.75 lb Heart Rate 64 /min BP Systolic Sitting 108 mmHg BP Diastolic Sitting 62 mmHg Body Temperature 98.0 F 09/12/2013 Weight 179.00 lb Heart Rate 68 /min BP Systolic Sitting 104 mmHg BP Diastolic Sitting 60 mmHg Body Temperature 98.2 F 09/02/2013 Weight 178.50 lb Heart Rate 76 /min BP Systolic 108 mmHg BP Diastolic 64 mmHg Respiratory Rate 16 /min Body Temperature 97.2 F 06/27/2013 Weight 178.25 lb Heart Rate 84 /min BP Systolic 110 mmHg BP Diastolic 60 mmHg 05/26/2013 Weight 178.00 lb Heart Rate 66 /min BP Systolic Sitting 124 mmHg BP Diastolic Sitting 82 mmHg 03/21/2013 Weight 179.00 lb Heart Rate 64 /min BP Systolic Sitting 124 mmHg BP Diastolic Sitting 80 mmHg 02/03/2013 Height 65.75 inches 5'5.75" Weight 178.00 lb Heart Rate 60 /min BP Systolic Sitting 90 mmHg BP Diastolic Sitting 68 mmHg BMI (Body Mass Index) 28.9 kg/m2 12/18/2012 Weight 182.25 lb Heart Rate 68 /min BP Systolic Sitting 98 mmHg BP Diastolic Sitting 64 mmHg 12/10/2012 Weight 180.25 lb Heart Rate 70 /min BP Systolic Sitting 100 mmHg BP Diastolic Sitting 70 mmHg 08/30/2012 Height 65.75 inches 5'5.75" Weight 183.00 lb Heart Rate 72 /min BP Systolic Sitting 112 mmHg BP Diastolic Sitting 68 mmHg BMI (Body Mass Index) 29.8 kg/m2 08/05/2012 Height 66 inches 5'6" Weight 188.50 lb Heart Rate 68 /min BP Systolic Sitting 100 mmHg BP Diastolic Sitting 70 mmHg BMI (Body Mass Index) 30.4 kg/m2 07/01/2012 Height 66 inches 5'6" Weight 188.50 lb Heart Rate 70 /min BP Systolic Sitting 120 mmHg BP Diastolic Sitting 64 mmHg BMI (Body Mass Index) 30.4 kg/m2 05/31/2012 Height 66 inches 5'6" Weight 183.00 lb Heart Rate 64 /min BP Systolic Sitting 94 mmHg BP Diastolic Sitting 60 mmHg BMI (Body Mass Index) 29.5 kg/m2 04/24/2012 Height 66 inches 5'6" Weight 182.00 lb Heart Rate 76 /min BP Systolic Sitting 124 mmHg BP Diastolic Sitting 76 mmHg BMI (Body Mass Index) 29.4 kg/m2 04/03/2012 Height 66 inches 5'6" Weight 179.00 lb Heart Rate 80 /min BP Systolic Sitting 102 mmHg BP Diastolic Sitting 60 mmHg BMI (Body Mass Index) 28.9 kg/m2 03/27/2012 Height 66 inches 5'6" Weight 177.00 lb Heart Rate 72 /min BP Systolic Sitting 122 mmHg BP Diastolic Sitting 68 mmHg BMI (Body Mass Index) 28.6 kg/m2 03/15/2012 Height 66 inches 5'6" Weight 181.00 lb Heart Rate 70 /min BP Systolic Sitting 124 mmHg BP Diastolic Sitting 76 mmHg BMI (Body Mass Index) 29.2 kg/m2 01/31/2012 Height 66 inches 5'6" Weight 182.00 lb Heart Rate 68 /min BP Systolic Sitting 116 mmHg BP Diastolic Sitting 64 mmHg BMI (Body Mass Index) 29.4 kg/m2 01/08/2012 Height 66 inches 5'6" Weight 178.00 lb Heart Rate 72 /min BP Systolic Sitting 100 mmHg BP Diastolic Sitting 64 mmHg BMI (Body Mass Index) 28.7 kg/m2 11/17/2011 Height 66 inches 5'6" Weight 180.00 lb Heart Rate 58 /min BP Systolic Sitting 108 mmHg BP Diastolic Sitting 62 mmHg BMI (Body Mass Index) 29.0 kg/m2 11/03/2011 Height 66 inches 5'6" Weight 182.00 lb Heart Rate 72 /min BP Systolic Sitting 112 mmHg BP Diastolic Sitting 64 mmHg BMI (Body Mass Index) 29.4 kg/m2 10/13/2011 Height 66 inches 5'6" Weight 186.00 lb Heart Rate 72 /min BP Systolic Sitting 100 mmHg BP Diastolic Sitting 58 mmHg BMI (Body Mass Index) 30.0 kg/m2 09/13/2011 Height 66 inches 5'6" Weight 188.00 lb Heart Rate 64 /min BP Systolic Sitting 106 mmHg BP Diastolic Sitting 64 mmHg BMI (Body Mass Index) 30.3 kg/m2 07/28/2011 Height 66 inches 5'6" Weight 186.50 lb Heart Rate 64 /min BP Systolic 100 mmHg BP Diastolic 60 mmHg BMI (Body Mass Index) 30.1 kg/m2 07/11/2011 Height 66 inches 5'6" Weight 186.00 lb Heart Rate 68 /min BP Systolic Sitting 130 mmHg BP Diastolic Sitting 78 mmHg BMI (Body Mass Index) 30.0 kg/m2 07/05/2011 Height 66 inches 5'6" Weight 185.00 lb Heart Rate 68 /min BP Systolic Sitting 97 mmHg BP Diastolic Sitting 68 mmHg BMI (Body Mass Index) 29.9 kg/m2 06/23/2011 Height 66 inches 5'6" Weight 180.00 lb Heart Rate 64 /min BP Systolic Sitting 106 mmHg BP Diastolic Sitting 64 mmHg BMI (Body Mass Index) 29.0 kg/m2 06/09/2011 Height 66 inches 5'6" Weight 179.00 lb Heart Rate 64 /min BP Systolic Sitting 106 mmHg BP Diastolic Sitting 68 mmHg BMI (Body Mass Index) 28.9 kg/m2 05/10/2011 Height 66 inches 5'6" Weight 179.00 lb Heart Rate 74 /min BP Systolic Sitting 110 mmHg BP Diastolic Sitting 66 mmHg BMI (Body Mass Index) 28.9 kg/m2 04/26/2011 Height 66 inches 5'6" Weight 178.50 lb Heart Rate 80 /min BP Systolic Sitting 100 mmHg L BP Diastolic Sitting 60 mmHg L BMI (Body Mass Index) 28.8 kg/m2 04/12/2011 Height 66 inches 5'6" Weight 177.00 lb Heart Rate 72 /min BP Systolic 118 mmHg BP Diastolic 66 mmHg BMI (Body Mass Index) 28.6 kg/m2 03/29/2011 Height 66 inches 5'6" Weight 175.00 lb Heart Rate 70 /min BP Systolic Sitting 106 mmHg BP Diastolic Sitting 68 mmHg BMI (Body Mass Index) 28.2 kg/m2 Results Test Date Test Result H/L Range Note Laboratory test finding 05/20/2017 Rapid Strep Molecular Negative Negative 1 Basic Metabolic Panel 03/12/2017 Sodium 139 mmol/L 133-145 Potassium 4.0 mmol/L 3.5-5.0 Chloride 105 mmol/L 101-111 Co2 Carbon Dioxide 29 mmol/L 22-32 Anion Gap 5 mmol/L 2-11 Glucose 93 mg/dL 70-100 Blood Urea Nitrogen 18 mg/dL 6-24 Creatinine 0.76 mg/dL 0.51-0.95 BUN/Creatinine Ratio 23.7 High 8-20 Calcium 8.9 mg/dL 8.6-10.3 Egfr Non- 78.7 >60 Egfr 101.2 >60 2 Laboratory test finding 03/12/2017 Magnesium 2.2 mg/dL 1.9-2.7 Lipid Profile (Trig/Chol/HDL) 03/12/2017 Triglycerides 121 mg/dL 3 Cholesterol 194 mg/dL 4 HDL Cholesterol 47.1 mg/dL 5 LDL Cholesterol 123 mg/dL 6 CBC Auto Diff 10/06/2016 White Blood Count 5.7 10^3/uL 3.5-10.8 Red Blood Count 4.13 10^6/uL 4.0-5.4 Hemoglobin 12.7 g/dL 12.0-16.0 Hematocrit 39 % 35-47 Mean Corpuscular Volume 93 fL 80-97 Mean Corpuscular Hemoglobin 31 pg 27-31 Mean Corpuscular HGB Conc 33 g/dL 31-36 Red Cell Distribution Width 14 % 10.5-15 Platelet Count 170 10^3/uL 150-450 Mean Platelet Volume 9 um3 7.4-10.4 Abs Neutrophils 3.1 10^3/uL 1.5-7.7 Abs Lymphocytes 1.9 10^3/uL 1.0-4.8 Abs Monocytes 0.6 10^3/uL 0-0.8 Abs Eosinophils 0.1 10^3/uL 0-0.6 Abs Basophils 0.1 10^3/uL 0-0.2 Abs Nucleated RBC 0 10^3/uL Granulocyte % 53.7 % 38-83 Lymphocyte % 33.0 % 25-47 Monocyte % 10.1 % High 1-9 Eosinophil % 2.2 % 0-6 Basophil % 1.0 % 0-2 Nucleated Red Blood Cells % 0 Laboratory test finding 10/06/2016 Lactic Acid 0.5 mmol/L 0.5-2.0 7 Comp Metabolic Panel 10/06/2016 Sodium 138 mmol/L 133-145 Potassium 3.4 mmol/L Low 3.5-5.0 Chloride 106 mmol/L 101-111 Co2 Carbon Dioxide 28 mmol/L 22-32 Anion Gap 4 mmol/L 2-11 Glucose 75 mg/dL 70-100 Blood Urea Nitrogen 12 mg/dL 6-24 Creatinine 0.83 mg/dL 0.51-0.95 BUN/Creatinine Ratio 14.5 8-20 Calcium 8.8 mg/dL 8.6-10.3 Total Protein 6.7 g/dL 6.4-8.9 Albumin 3.8 g/dL 3.2-5.2 Globulin 2.9 g/dL 2-4 Albumin/Globulin Ratio 1.3 1-3 Total Bilirubin 0.40 mg/dL 0.2-1.0 Alkaline Phosphatase 61 U/L 34-104 Alt 13 U/L 7-52 Ast 14 U/L 13-39 Egfr Non- 71.4 >60 Egfr 91.8 >60 8 Laboratory test finding 10/06/2016 Magnesium 2.2 mg/dL 1.9-2.7 Troponin-I (TnI) 0.00 ng/mL <0.04 9 TSH (Thyroid Stim Horm) 1.63 mcIU/mL 0.34-5.60 Lipid Profile (Trig/Chol/HDL) 10/03/2016 Triglycerides 107 mg/dL 10 Cholesterol 248 mg/dL 11 HDL Cholesterol 52.8 mg/dL 12 LDL Cholesterol 174 mg/dL 13 Comp Metabolic Panel 02/18/2016 Sodium 139 mmol/L 133-145 14 Potassium 3.6 mmol/L 3.5-5.0 14 Chloride 102 mmol/L 101-111 14 Co2 Carbon Dioxide 32 mmol/L 22-32 14 Anion Gap 5 mmol/L 2-11 14 Glucose 73 mg/dL 70-100 14 Blood Urea Nitrogen 15 mg/dL 6-24 14 Creatinine 0.77 mg/dL 0.51-0.95 14 BUN/Creatinine Ratio 19.5 8-20 14 Calcium 9.5 mg/dL 8.6-10.3 14 Total Protein 7.4 g/dL 6.4-8.9 14 Albumin 4.5 g/dL 3.2-5.2 14 Globulin 2.9 g/dL 2-4 14 Albumin/Globulin Ratio 1.6 1-3 14 Total Bilirubin 0.40 mg/dL 0.2-1.0 14 Alkaline Phosphatase 74 U/L 34-104 14 Alt 13 U/L 7-52 14 Ast 18 U/L 13-39 14 Egfr Non- 78.1 >60 14 Egfr 100.5 >60 14, 15 Laboratory test finding 02/18/2016 Uric Acid 4.1 mg/dL 2.3-6.6 14, 16 CBC Auto Diff 02/18/2016 White Blood Count 4.3 10^3/uL 3.5-10.8 14 Red Blood Count 4.48 10^6/uL 4.0-5.4 14 Hemoglobin 14.1 g/dL 12.0-16.0 14 Hematocrit 41 % 35-47 14 Mean Corpuscular Volume 92 fL 80-97 14 Mean Corpuscular Hemoglobin 31 pg 27-31 14 Mean Corpuscular HGB Conc 34 g/dL 31-36 14 Red Cell Distribution Width 14 % 10.5-15 14 Platelet Count 192 10^3/uL 150-450 14 Mean Platelet Volume 11 um3 High 7.4-10.4 14 Abs Neutrophils 2.1 10^3/uL 1.5-7.7 14 Abs Lymphocytes 1.7 10^3/uL 1.0-4.8 14 Abs Monocytes 0.3 10^3/uL 0-0.8 14 Abs Eosinophils 0.1 10^3/uL 0-0.6 14 Abs Basophils 0 10^3/uL 0-0.2 14 Abs Nucleated RBC 0.01 10^3/uL 14 Granulocyte % 48.0 % 38-83 14 Lymphocyte % 39.7 % 25-47 14 Monocyte % 8.1 % 1-9 14 Eosinophil % 3.3 % 0-6 14 Basophil % 0.9 % 0-2 14 Nucleated Red Blood Cells % 0.1 14 Laboratory test finding 02/18/2016 Erythrocyte Sed Rate 39 mm/Hr High 0- 30 14, 17 Lyme Disease Serology Negative Negative 14, 18 Factor 8 Profile 01/19/2016 Coagulation Factor VIII Activi 98 % 55 - 200 von Willebrand Factor Antigen 82 % 55 - 200 VonWillibrand Factor Activity 81 % 55 - 200 von Willebrand Panel Interp See Comment 19 Laboratory test finding 01/19/2016 Haptoglobin 134 mg/dL 30 - 200 20 Laboratory test finding 01/19/2016 LDH 192 U/L 140-271 CBC Auto Diff 01/19/2016 White Blood Count 4.0 10^3/uL 3.5-10.8 Red Blood Count 4.43 10^6/uL 4.0-5.4 Hemoglobin 13.5 g/dL 12.0-16.0 Hematocrit 41 % 35-47 Mean Corpuscular Volume 92 fL 80-97 Mean Corpuscular Hemoglobin 31 pg 27-31 Mean Corpuscular HGB Conc 33 g/dL 31-36 Red Cell Distribution Width 14 % 10.5-15 Platelet Count 174 10^3/uL 150-450 Mean Platelet Volume 10 um3 7.4-10.4 Abs Neutrophils 1.9 10^3/uL 1.5-7.7 Abs Lymphocytes 1.6 10^3/uL 1.0-4.8 Abs Monocytes 0.4 10^3/uL 0-0.8 Abs Eosinophils 0.1 10^3/uL 0-0.6 Abs Basophils 0 10^3/uL 0-0.2 Abs Nucleated RBC 0 10^3/uL Granulocyte % 48.0 % 38-83 Lymphocyte % 38.6 % 25-47 Monocyte % 10.0 % High 1-9 Eosinophil % 2.2 % 0-6 Basophil % 1.2 % 0-2 Nucleated Red Blood Cells % 0 Laboratory test 01/19/2016 Bilirubin Total 0.40 mg/dL 0.2-1.0 finding Laboratory test 01/17/2016 Hepatitis B Dna Undetected IU/mL Undetected 21 finding Quantitative Hepatitis Be Antigen Negative Negative 22 Laboratory test finding 01/13/2016 Hepatitis B Surface Ag Nonreactive Nonreactive Hepatitis B Core AB Igm Nonreactive Nonreactive Hepatitis B Core AB Total Positive Negative 23 Hepatitis B Brittany AB Titer 01/01/2016 Hepatitis B Surface AB Reactive Nonreactive 24 Hep B Surf AB Level > 1000.00 mIU/mL <12 24, 25 Urine Culture And 01/01/2016 Urine Culture SEE RESULT 26, 27 Sensitivities BELOW CBC Auto Diff 12/07/2015 White Blood 11.4 10^3/uL High 3.5-10.8 Count Red Blood Count 4.44 10^6/uL 4.0-5.4 Hemoglobin 13.6 g/dL 12.0-16.0 Hematocrit 40 % 35-47 Mean Corpuscular Volume 91 fL 80-97 Mean Corpuscular Hemoglobin 31 pg 27-31 Mean Corpuscular HGB Conc 34 g/dL 31-36 Red Cell Distribution Width 13 % 10.5-15 Platelet Count 146 10^3/uL Low 150-450 Mean Platelet Volume 10 um3 7.4-10.4 Abs Neutrophils 10.0 10^3/uL High 1.5-7.7 Abs Lymphocytes 0.6 10^3/uL Low 1.0-4.8 Abs Monocytes 0.7 10^3/uL 0-0.8 Abs Eosinophils 0 10^3/uL 0-0.6 Abs Basophils 0.1 10^3/uL 0-0.2 Abs Nucleated RBC 0.05 10^3/uL Granulocyte % 87.6 % High 38-83 Lymphocyte % 5.4 % Low 25-47 Monocyte % 6.1 % 1-9 Eosinophil % 0.2 % 0-6 Basophil % 0.7 % 0-2 Nucleated Red Blood Cells % 0.4 Urinalysis Profile 12/07/2015 Urine Color Straw Urine Appearance Clear Urine Specific [place] 1.012 1.010-1.030 Urine pH 6.0 5-9 Urine Urobilinogen Negative Negative Urine Ketones Negative Negative Urine Protein Negative Negative Urine Leukocytes Negative Negative Urine Blood 2+ Negative Urine Nitrite Negative Negative Urine Bilirubin Negative Negative Urine Glucose Negative Negative Urine White Blood Cell Absent Absent Urine Red Blood Cell 2+(6-10/hpf) Absent Urine Bacteria Absent Absent Urine Squamous Epithelial Cell Present Absent Laboratory test finding 12/07/2015 Lactic Acid 1.6 mmol/L 0.5-2.0 28 Troponin-I (TnI) 0.00 ng/mL <0.03 29 CKMB 12/07/2015 CKMB ng/mL 2.3 ng/mL 0.6-6.3 Comp Metabolic Panel 12/07/2015 Sodium 136 mmol/L 133-145 Potassium 3.8 mmol/L 3.5-5.0 Chloride 103 mmol/L 101-111 Co2 Carbon Dioxide 27 mmol/L 22-32 Anion Gap 6 mmol/L 2-11 Glucose 101 mg/dL High 70-100 Blood Urea Nitrogen 13 mg/dL 6-24 Creatinine 0.72 mg/dL 0.51-0.95 BUN/Creatinine Ratio 18.1 8-20 Calcium 9.7 mg/dL 8.6-10.3 Total Protein 7.1 g/dL 6.4-8.9 Albumin 4.1 g/dL 3.2-5.2 Globulin 3.0 g/dL 2-4 Albumin/Globulin Ratio 1.4 1-3 Total Bilirubin 0.40 mg/dL 0.2-1.0 Alkaline Phosphatase 62 U/L 34-104 Alt 16 U/L 7-52 Ast 17 U/L 13-39 Egfr Non- 84.4 >60 Egfr 108.6 >60 30 Laboratory test finding 12/07/2015 Lipase 34 U/L 11.0-82.0 Creatine Kinase(CK) 150 U/L 10-223 CBC Auto Diff 09/28/2015 White Blood Count 3.9 10^3/uL 3.5-10.8 Red Blood Count 4.24 10^6/uL 4.0-5.4 Hemoglobin 13.2 g/dL 12.0-16.0 Hematocrit 40 % 35-47 Mean Corpuscular Volume 95 fL 80-97 Mean Corpuscular Hemoglobin 31 pg 27-31 Mean Corpuscular HGB Conc 33 g/dL 31-36 Red Cell Distribution Width 14 % 10.5-15 Platelet Count 170 10^3/uL 150-450 Mean Platelet Volume 10 um3 7.4-10.4 Abs Neutrophils 1.9 10^3/uL 1.5-7.7 Abs Lymphocytes 1.5 10^3/uL 1.0-4.8 Abs Monocytes 0.4 10^3/uL 0-0.8 Abs Eosinophils 0.1 10^3/uL 0-0.6 Abs Basophils 0 10^3/uL 0-0.2 Abs Nucleated RBC 0 10^3/uL Granulocyte % 47.3 % 38-83 Lymphocyte % 38.8 % 25-47 Monocyte % 10.1 % High 1-9 Eosinophil % 2.7 % 0-6 Basophil % 1.1 % 0-2 Nucleated Red Blood Cells % 0.1 Comp Metabolic Panel 09/28/2015 Sodium 138 mmol/L 133-145 Potassium 3.8 mmol/L 3.5-5.0 Chloride 103 mmol/L 101-111 Co2 Carbon Dioxide 30 mmol/L 22-32 Anion Gap 5 mmol/L 2-11 Glucose 92 mg/dL 70-100 Blood Urea Nitrogen 16 mg/dL 6-24 Creatinine 0.77 mg/dL 0.51-0.95 BUN/Creatinine Ratio 20.8 High 8-20 Calcium 9.3 mg/dL 8.6-10.3 Total Protein 6.6 g/dL 6.4-8.9 Albumin 4.2 g/dL 3.2-5.2 Globulin 2.4 g/dL 2-4 Albumin/Globulin Ratio 1.8 1-3 Total Bilirubin 0.60 mg/dL 0.2-1.0 Alkaline Phosphatase 62 U/L 34-104 Alt 16 U/L 7-52 Ast 16 U/L 13-39 Egfr Non- 78.1 >60 Egfr 100.5 >60 31 Laboratory test finding 09/28/2015 TSH (Thyroid Stim 1.25 ?IU/mL 0.34- 5.60 Horm) Vitamin B12 And Folate 09/28/2015 Vitamin B12 375 pg/mL 180-914 32 Serum Folic Acid (Folate) 11.27 ng/mL >3.99 Laboratory test 04/14/2015 Cytology Non-Elevator Constructor SEE RESULT BELOW 33 finding Laboratory test 04/08/2015 Rapid Group A Strep neg finding CBC Auto Diff 12/23/2014 White Blood Count 7.0 10^3/uL 4.8-10.8 Red Blood Count 4.18 10^6/uL 4.0-5.4 Hemoglobin 13.3 g/dL 12.0-16.0 Hematocrit 40 % 35-47 Mean Corpuscular Volume 95 fL 80-97 Mean Corpuscular Hemoglobin 32 pg High 27-31 Mean Corpuscular HGB Conc 34 g/dL 31-36 Red Cell Distribution Width 14 % 10.5-15 Platelet Count 141 10^3/uL Low 150-450 Mean Platelet Volume 9 um3 7.4-10.4 Abs Neutrophils 4.5 10^3/uL 1.5-7.7 Abs Lymphocytes 1.6 10^3/uL 1.0-4.8 Abs Monocytes 0.7 10^3/uL 0-0.8 Abs Eosinophils 0.1 10^3/uL 0-0.6 Abs Basophils 0.1 10^3/uL 0-0.2 Abs Nucleated RBC 0 10^3/uL Granulocyte % 65.0 % 38-83 Lymphocyte % 22.4 % Low 25-47 Monocyte % 10.1 % High 1-9 Eosinophil % 1.5 % 0-6 Basophil % 1.0 % 0-2 Nucleated Red Blood Cells % 0.1 Comp Metabolic Panel 12/23/2014 Sodium 136 mmol/L 133-145 Potassium 3.7 mmol/L 3.5-5.0 Chloride 102 mmol/L 101-111 Co2 Carbon Dioxide 27 mmol/L 22-32 Anion Gap 7 mmol/L 2-11 Glucose 90 mg/dL 70-100 Blood Urea Nitrogen 12 mg/dL 6-24 Creatinine 0.78 mg/dL 0.51-0.95 BUN/Creatinine Ratio 15.4 8-20 Calcium 9.1 mg/dL 8.6-10.3 Total Protein 6.8 g/dL 6.4-8.9 Albumin 4.1 g/dL 3.2-5.2 Globulin 2.7 g/dL 2-4 Albumin/Globulin Ratio 1.5 1-3 Total Bilirubin 0.60 mg/dL 0.2-1.0 Alkaline Phosphatase 67 U/L 34-104 Alt 14 U/L 7-52 Ast 16 U/L 13-39 Egfr Non- 77.3 >60 Egfr 99.4 >60 34 Laboratory test finding 12/23/2014 Lipase 20 U/L 11.0-82.0 C Reactive Protein 22.43 mg/L High < 5.00 35 HCG Qualitative Negative Negative Urinalysis Profile 12/23/2014 Urine Color Colorless Urine Appearance Clear Urine Specific [place] 1.017 1.010-1.030 Urine pH 6.0 5-9 Urine Urobilinogen Negative Negative Urine Ketones Negative Negative Urine Protein Negative Negative Urine Leukocytes 2+ Negative Urine Blood 1+ Negative Urine Nitrite Negative Negative Urine Bilirubin Negative Negative Urine Glucose Negative Negative Urine White Blood Cell 1+(6-10/hpf) Absent Urine Red Blood Cell Trace(0-2/hpf) Absent Urine Bacteria Absent Absent Urine Squamous Epithelial Cell Present Absent Laboratory test finding 12/23/2014 Urine Culture And SEE RESULT BELOW 36 Sensitivities Laboratory test finding 12/23/2014 Throat Beta Strep Culture SEE RESULT BELOW 37 Urinalysis Profile 09/14/2014 Urine Color Straw Urine Appearance Clear Urine Specific [place] 1.011 1.010-1.030 Urine pH 7.0 5-9 Urine Urobilinogen Negative Negative Urine Ketones Trace Negative Urine Protein Negative Negative Urine Leukocytes Trace Negative Urine Blood 1+ Negative Urine Nitrite Negative Negative Urine Bilirubin Negative Negative Urine Glucose Negative Negative Urine White Blood Cell Trace(0-5/hpf) Absent Urine Red Blood Cell Trace(0-2/hpf) Absent Urine Bacteria Absent Absent Urine Squamous Epithelial Cell Present Absent Urine Culture And 09/14/2014 Urine Culture (SEE NOTE) 38 Sensitivities CBC Auto Diff 09/14/2014 White Blood Count 6.2 10^3/uL 4.8-10.8 Red Blood Count 4.28 10^6/uL 4.0-5.4 Hemoglobin 13.6 g/dL 12.0-16.0 Hematocrit 41 % 35-47 Mean Corpuscular Volume 95 fL 80-97 Mean Corpuscular Hemoglobin 32 pg High 27-31 Mean Corpuscular HGB Conc 34 g/dL 31-36 Red Cell Distribution Width 14 % 10.5-15 Platelet Count 170 10^3/uL 150-450 Mean Platelet Volume 9 um3 7.4-10.4 Abs Neutrophils 4.1 10^3/uL 1.5-7.7 Abs Lymphocytes 1.5 10^3/uL 1.0-4.8 Abs Monocytes 0.5 10^3/uL 0-0.8 Abs Eosinophils 0.1 10^3/uL 0-0.6 Abs Basophils 0.1 10^3/uL 0-0.2 Abs Nucleated RBC 0 10^3/uL Granulocyte % 65.2 % 38-83 Lymphocyte % 23.4 % Low 25-47 Monocyte % 7.9 % 1-9 Eosinophil % 2.4 % 0-6 Basophil % 1.1 % 0-2 Nucleated Red Blood Cells % 0 Inr/Protime 09/14/2014 Inr 0.98 0.78-1.07 Laboratory test finding 09/14/2014 Activated Partial 35.3 seconds 26.0- 36.3 Thrombo Time D Dimer Quantitative 219 ng/mL Less Than 230 39 Lactic Acid 0.7 mmol/L 0.5-2.2 B Type Natriuretic Peptide 44 pg/mL 40 Comp Metabolic Panel 09/14/2014 Sodium 138 mmol/L 133-145 Potassium 3.8 mmol/L 3.5-5.0 Chloride 102 mmol/L 101-111 Co2 Carbon Dioxide 32 mmol/L 22-32 Anion Gap 4 mmol/L 2-11 Glucose 89 mg/dL 70-100 Blood Urea Nitrogen 13 mg/dL 6-24 Creatinine 0.79 mg/dL 0.51-0.95 BUN/Creatinine Ratio 16.5 8-20 Calcium 9.8 mg/dL 8.6-10.3 Total Protein 7.1 g/dL 6.4-8.9 Albumin 4.3 g/dL 3.2-5.2 Globulin 2.8 g/dL 2-4 Albumin/Globulin Ratio 1.5 1-3 Total Bilirubin 0.40 mg/dL 0.2-1.0 Alkaline Phosphatase 67 U/L 34-104 Alt 14 U/L 7-52 Ast 17 U/L 13-39 Egfr Non- 76.1 >60 Egfr 97.9 >60 41 Laboratory test finding 09/14/2014 Magnesium 2.1 mg/dL 1.9-2.7 Lipase 27 U/L 11.0-82.0 Troponin I 0.00 ng/mL <0.03 42 TSH (Thyroid Stimulating Horm) 0.93 IU/mL 0.34-5.60 C Reactive Protein 2.46 mg/L < 5.00 43 CBC Auto Diff 09/12/2014 White Blood Count 4.3 10^3/uL Low 4.8-10.8 Red Blood Count 4.40 10^6/uL 4.0-5.4 Hemoglobin 14.2 g/dL 12.0-16.0 Hematocrit 42 % 35-47 Mean Corpuscular Volume 95 fL 80-97 Mean Corpuscular Hemoglobin 32 pg High 27-31 Mean Corpuscular HGB Conc 34 g/dL 31-36 Red Cell Distribution Width 13 % 10.5-15 Platelet Count 183 10^3/uL 150-450 Mean Platelet Volume 10 um3 7.4-10.4 Abs Neutrophils 2.3 10^3/uL 1.5-7.7 Abs Lymphocytes 1.4 10^3/uL 1.0-4.8 Abs Monocytes 0.4 10^3/uL 0-0.8 Abs Eosinophils 0.1 10^3/uL 0-0.6 Abs Basophils 0.1 10^3/uL 0-0.2 Abs Nucleated RBC 0 10^3/uL Granulocyte % 53.7 % 38-83 Lymphocyte % 33.5 % 25-47 Monocyte % 10.1 % High 1-9 Eosinophil % 1.5 % 0-6 Basophil % 1.2 % 0-2 Nucleated Red Blood Cells % 0.1 Comp Metabolic Panel 09/12/2014 Sodium 138 mmol/L 133-145 Potassium 4.0 mmol/L 3.5-5.0 Chloride 101 mmol/L 101-111 Co2 Carbon Dioxide 31 mmol/L 22-32 Anion Gap 6 mmol/L 2-11 Glucose 92 mg/dL 70-100 Blood Urea Nitrogen 13 mg/dL 6-24 Creatinine 0.87 mg/dL 0.51-0.95 BUN/Creatinine Ratio 14.9 8-20 Calcium 9.7 mg/dL 8.6-10.3 Total Protein 7.1 g/dL 6.4-8.9 Albumin 4.4 g/dL 3.2-5.2 Globulin 2.7 g/dL 2-4 Albumin/Globulin Ratio 1.6 1-3 Total Bilirubin 0.50 mg/dL 0.2-1.0 Alkaline Phosphatase 79 U/L 34-104 Alt 15 U/L 7-52 Ast 17 U/L 13-39 Egfr Non- 68.1 >60 Egfr 87.6 >60 44 Laboratory test finding 09/12/2014 Lipase 19 U/L 11.0-82.0 C Reactive Protein 4.85 mg/L < 5.00 45 H Pylori Iga 09/08/2014 Helicobacter pylori IgA Ab Negative Negative H pylori IgA Ab Index 1.93 46 H.Pylori Igg AB 09/08/2014 Helicobacter pylori IgG Ab Negative Negative H pylori IgG AB Index 2.19 47 H.Pylori Igm AB 09/08/2014 Helicobacter pylori IgM Ab Negative Negative H pylori IgM AB Index 23.90 48 Laboratory test finding 08/21/2014 C. difficile Amplified Dna (SEE NOTE) 49 Entamoeba histolytica Antigen NOT DETECTED 50 E.coli O157:H7 Culture (SEE NOTE) 51 O&P Ova & 08/21/2014 Ova Parasite Concen (SEE NOTE) 52 Parasites Full Full Laboratory test finding 08/21/2014 Stool Culture (SEE NOTE) 53 CBC Auto Diff 08/14/2014 White Blood Count 5.6 10^3/uL 4.8-10.8 Red Blood Count 4.09 10^6/uL 4.0-5.4 Hemoglobin 13.0 g/dL 12.0-16.0 Hematocrit 39 % 35-47 Mean Corpuscular Volume 95 fL 80-97 Mean Corpuscular Hemoglobin 32 pg High 27-31 Mean Corpuscular HGB Conc 34 g/dL 31-36 Red Cell Distribution Width 13 % 10.5-15 Platelet Count 152 10^3/uL 150-450 Mean Platelet Volume 10 um3 7.4-10.4 Abs Neutrophils 2.7 10^3/uL 1.5-7.7 Abs Lymphocytes 2.1 10^3/uL 1.0-4.8 Abs Monocytes 0.7 10^3/uL 0-0.8 Abs Eosinophils 0.1 10^3/uL 0-0.6 Abs Basophils 0.1 10^3/uL 0-0.2 Abs Nucleated RBC 0 10^3/uL Granulocyte % 47.5 % 38-83 Lymphocyte % 36.6 % 25-47 Monocyte % 12.4 % High 1-9 Eosinophil % 2.4 % 0-6 Basophil % 1.1 % 0-2 Nucleated Red Blood Cells % 0.1 Inr/Protime 08/14/2014 Inr 0.87 0.78-1.07 Laboratory test finding 08/14/2014 Activated Partial 35.1 seconds 26.0- 36.3 54 Thrombo Time Comp Metabolic Panel 08/14/2014 Sodium 136 mmol/L 133-145 Potassium 3.4 mmol/L Low 3.5-5.0 Chloride 103 mmol/L 101-111 Co2 Carbon Dioxide 28 mmol/L 22-32 Anion Gap 5 mmol/L 2-11 Glucose 93 mg/dL 70-100 Blood Urea Nitrogen 19 mg/dL 6-24 Creatinine 0.74 mg/dL 0.51-0.95 BUN/Creatinine Ratio 25.7 High 8-20 Calcium 9.0 mg/dL 8.6-10.3 Total Protein 6.5 g/dL 6.4-8.9 Albumin 4.1 g/dL 3.2-5.2 Globulin 2.4 g/dL 2-4 Albumin/Globulin Ratio 1.7 1-3 Total Bilirubin 0.30 mg/dL 0.2-1.0 Alkaline Phosphatase 66 U/L 34-104 Alt 14 U/L 7-52 Ast 16 U/L 13-39 Egfr Non- 82.1 >60 Egfr 105.6 >60 55 Laboratory test finding 08/14/2014 TSH (Thyroid Stimulating 2.37 IU/mL 0.34-5.60 Horm) Laboratory test finding 06/24/2014 Blood Urea Nitrogen 15 mg/dL 6-24 Creatinine 06/24/2014 Creatinine 0.79 mg/dL 0.51-0.95 Egfr Non- 76.1 >60 Egfr 97.9 >60 56 Comp Metabolic Panel 02/06/2014 Sodium 138 mmol/L 133-145 57 Potassium 3.9 mmol/L 3.7-5.6 57 Chloride 102 mmol/L 101-111 57 Co2 Carbon Dioxide 31 mmol/L 22-32 57 Anion Gap 5 mmol/L 2-11 57 Glucose 83 mg/dL 70-100 57 Blood Urea Nitrogen 14 mg/dL 6-24 57 Creatinine 0.70 mg/dL 0.51-0.95 57 BUN/Creatinine Ratio 20.0 8-20 57 Calcium 9.0 mg/dL 8.6-10.3 57 Total Protein 6.8 g/dL 6.4-8.9 57 Albumin 4.1 g/dL 3.2-5.2 57 Globulin 2.7 g/dL 2-4 57 Albumin/Globulin Ratio 1.5 1-3 57 Total Bilirubin 0.50 mg/dL 0.2-1.0 57 Alkaline Phosphatase 63 U/L 34-104 57 Alt 19 U/L 7-52 57 Ast 18 U/L 13-39 57 Egfr Non- 87.9 >60 57 Egfr 113.0 >60 57, 58 Lipid Profile (Trig/Chol/HDL) 02/06/2014 Triglycerides 181 mg/dL 57, 59 Cholesterol 192 mg/dL 57, 60 HDL Cholesterol 52.3 mg/dL 57, 61 LDL Cholesterol 104 mg/dL 57, 62 Laboratory test 10/31/2013 Cytology RUN DATE: finding <SEE NOTE> HPV High Risk 10/31/2013 Human Papillomavirus See Comment 64 Source HPV High Risk Type 16, PCR Positive Negative HPV High Risk Type 18, PCR Negative Negative HPV Other Risk types Negative Negative 65 Laboratory test finding 09/30/2013 Vitamin B12 290 pg/mL 180-914 66 Ua Routine 09/12/2013 Ua Specific [place] 1.020 Ua PH 5 Ua Color yellow Ua Appera clear Ua WBC trace Ua Protein trace Ua Glucose neg Ua Ketones neg Ua Bilirubin neg Ua Urobilinogen neg Ua Nitrite neg Ua Occult Blood small + CBC Auto Diff 09/06/2013 White Blood Count 5.0 10^3/uL 4.8-10.8 Red Blood Count 4.28 10^6/uL 4.0-5.4 Hemoglobin 13.5 g/dL 12.0-16.0 Hematocrit 39 % 35-47 Mean Corpuscular Volume 92 fL 80-97 Mean Corpuscular Hemoglobin 32 pg High 27-31 Mean Corpuscular HGB Conc 34 g/dL 31-36 Red Cell Distribution Width 13 % 10.5-15 Platelet Count 163 10^3/uL 150-450 Mean Platelet Volume 9 um3 7.4-10.4 Abs Neutrophils 2.8 10^3/uL 1.5-7.7 Abs Lymphocytes 1.4 10^3/uL 1.0-4.8 Abs Monocytes 0.4 10^3/uL 0-0.8 Abs Eosinophils 0.2 10^3/uL 0-0.6 Abs Basophils 0.2 10^3/uL 0-0.2 Abs Nucleated RBC 0 10^3/uL Comp Metabolic Panel 09/06/2013 Sodium 138 mmol/L 133-145 Potassium 3.9 mmol/L 3.7-5.6 Chloride 102 mmol/L 101-111 Co2 Carbon Dioxide 32 mmol/L 22-32 Anion Gap 4 mmol/L 2-11 Glucose 97 mg/dL 70-100 Blood Urea Nitrogen 17 mg/dL 6-24 Creatinine 0.76 mg/dL 0.51-0.95 BUN/Creatinine Ratio 22.4 High 8-20 Calcium 9.1 mg/dL 8.6-10.3 Total Protein 6.4 g/dL 6.4-8.9 Albumin 4.2 g/dL 3.2-5.2 Globulin 2.2 g/dL 2-4 Albumin/Globulin Ratio 1.9 1-3 Total Bilirubin 0.30 mg/dL 0.2-1.0 Alkaline Phosphatase 67 U/L 34-104 Alt 13 U/L 7-52 Ast 18 U/L 13-39 Egfr Non- 79.9 >60 Egfr 102.8 >60 67 Manual Differential 09/06/2013 Neutrophil % 43 % 38-83 Band % 1 % 0-8 Lymphocytes % 42 % 25-47 Monocytes % 5 % 0-13 Eosinophils % 5 % 0-6 Basophil % 2 % 0-2 Reactive Lymph % 2 % 0-6 RBC Morphology Normal Normal Urinalysis 09/06/2013 Urine Color Yellow Urine Appearance Clear Urine Specific [place] 1.021 1.010-1.030 Urine Esterase 1+ Negative Urine Nitrate Negative Negative Urine Urobilinogen Negative E.U./dL Negative Urine Protein Negative mg/dL Negative Urine pH 5.5 5-9 Urine Blood 1+ Negative Urine Ketones Negative mg/dL Negative Urine Bilirubin Negative Negative Urine Glucose Negative mg/dL Negative Urine Microscopic 09/06/2013 Urine WBC 1+ (<10 /hpf) None Seen Urine RBC 1+ (<3 /hpf) None Seen Urine Mucus Present /lpf Absent Urine Epithelial Cells 1+ Renal /hpf None Seen Urine Epithelial Cells 1+ Squamous /hpf None Seen Bacteria Urine None Seen None Seen Urine Culture And Sensitivities 09/06/2013 Urine Culture (SEE NOTE) 68 Iron & Iron Binding Capacity 07/01/2013 Iron 95 g/dL 50-212 Unsaturated Iron Binding 349 g/dL Total Iron Binding Capacity 444 g/dL 250-450 % Iron Saturation 21 % 15-55 Laboratory test finding 07/01/2013 Ferritin 14.2 ng/mL 11-307 69 CBC Auto Diff 07/01/2013 White Blood Count 4.3 10^3/uL Low 4.8-10.8 Red Blood Count 4.58 10^6/uL 4.0-5.4 Hemoglobin 14.1 g/dL 12.0-16.0 Hematocrit 42 % 35-47 Mean Corpuscular Volume 93 fL 80-97 Mean Corpuscular Hemoglobin 31 pg 27-31 Mean Corpuscular HGB Conc 33 g/dL 31-36 Red Cell Distribution Width 13 % 10.5-15 Platelet Count 172 10^3/uL 150-450 Mean Platelet Volume 10 um3 7.4-10.4 Abs Neutrophils 1.9 10^3/uL 1.5-7.7 Abs Lymphocytes 1.8 10^3/uL 1.0-4.8 Abs Monocytes 0.4 10^3/uL 0-0.8 Abs Eosinophils 0.1 10^3/uL 0-0.6 Abs Basophils 0 10^3/uL 0-0.2 Abs Nucleated RBC 0.01 10^3/uL Granulocyte % 44.3 % 38-83 Lymphocyte % 42.0 % 25-47 Monocyte % 9.9 % High 1-9 Eosinophil % 2.7 % 0-6 Basophil % 1.1 % 0-2 Nucleated Red Blood Cells % 0.1 Laboratory test finding 07/01/2013 Vitamin B12 378 pg/mL 180-914 70 Vitamin D, 25 Hydroxy 07/01/2013 25-Hydroxy Vitamin D2 <4.0 ng/mL 25-Hydroxy Vitamin D3 27 ng/mL 25-Hydroxy Vitamin D Total 27 ng/mL 71 Lipid Profile (Trig/Chol/HDL) 07/01/2013 Triglycerides 57 mg/dL 72 Cholesterol 223 mg/dL 73 HDL Cholesterol 66.9 mg/dL 74 LDL Cholesterol 145 mg/dL 75 Laboratory test finding 07/01/2013 Glucose 83 mg/dL 70-100 76 TSH (Thyroid Stimulating Horm) 1.61 IU/mL 0.34-5.60 77 Urine Microscopic 03/21/2013 Urine WBC 2+ (>10-30 /hpf) None Seen 78 Urine RBC 1+ (<3 /hpf) None Seen Urine Mucus Present /lpf Absent Bacteria Urine 1+ None Seen Urine Culture And Sensitivities 03/21/2013 Urine Culture (SEE NOTE) 79 Urinalysis 03/21/2013 Urine Color Yellow Urine Appearance Clear Urine Specific [place] 1.024 1.010-1.030 Urine Esterase 2+ Negative Urine Nitrate Negative Negative Urine Urobilinogen Negative E.U./dL Negative Urine Protein Negative mg/dL Negative Urine pH 5.5 5-9 Urine Blood 2+ Negative Urine Ketones Negative mg/dL Negative Urine Bilirubin Negative Negative Urine Glucose Negative mg/dL Negative Urinalysis W/Microscopic 03/10/2013 Urine Color (SEE NOTE) 80 Urine WBC 2+ (>10-30 /hpf) None Seen 81 Urine RBC 1+ (<3 /hpf) None Seen Urine Epithelial Cells 2+ Squamous /hpf None Seen Bacteria Urine 1+ None Seen Laboratory test finding 09/18/2012 Glucose 84 mg/dL 70-100 82 Lipid Profile (Trig/Chol/HDL) 09/18/2012 Triglycerides 109 mg/dL 40-200 Cholesterol 234 mg/dL High Less than 200 HDL Cholesterol 52 mg/dL 40-60 83 Cholesterol/HDL Ratio 4.5 Average High 1-4.44 LDL Cholesterol 160.2 mg/dL High Less Than 100 84 CBC Auto Diff 08/30/2012 White Blood Count 5.2 10^3/uL 4.8-10.8 Red Blood Count 4.39 10^6/uL 4.0-5.4 Hemoglobin 13.9 g/dL 12.0-16.0 Hematocrit 42 % 35-47 Mean Corpuscular Volume 95 fL 80-97 Mean Corpuscular Hemoglobin 32 pg High 27-31 Mean Corpuscular HGB Conc 33 g/dL 31-36 Red Cell Distribution Width 14 % 10.5-15 Platelet Count 176 10^3/uL 150-450 Mean Platelet Volume 10 um3 7.4-10.4 Abs Neutrophils 2.8 10^3/uL 1.5-7.7 Abs Lymphocytes 1.8 10^3/uL 1.0-4.8 Abs Monocytes 0.3 10^3/uL 0-0.8 Abs Eosinophils 0.2 10^3/uL 0-0.6 Abs Basophils 0.1 10^3/uL 0-0.2 Abs Nucleated RBC 0 10^3/uL Granulocyte % 54.0 % 38-83 Lymphocyte % 34.6 % 25-47 Monocyte % 6.5 % 1-9 Eosinophil % 3.1 % 0-6 Basophil % 1.8 % 0-2 Nucleated Red Blood Cells % 0 Laboratory test finding 08/30/2012 TSH (Thyroid Stimulating 0.84 miu/mL 0.34-5.60 Horm) Follicle Stimulating Hormone 23.84 miu/mL 85 Laboratory test finding 01/31/2012 BHCG Quantitative < 2.1 MIU/ML 0-5 86 Basic Metabolic Panel 01/31/2012 Sodium 138 mmol/L 135-145 Potassium 3.8 mmol/L 3.5-5.0 Chloride 103 mmol/L 101-111 Co2 (Carbon Dioxide) 30.0 mmol/L 22-32 Anion Gap 5.0 mmol/L 2-11 87 Glucose 77 mg/dL 70-100 BUN 15 mg/dL 6-24 Creatinine 0.6 mg/dL 0.50-1.40 One Over Creatinine 1.66 BUN/Creatinine Ratio 25.0 High 8-20 Calcium 9.1 mg/dL 8.1-9.9 eGFR Non- 105.8 > 60 eGFR 136.1 > 60 88 Laboratory test finding 01/31/2012 PTT (Aptt) 28.1 SEC 25.1-38.5 Protime 01/31/2012 Inr 0.89 0.88-1.13 89 Protime 10.6 SEC 10.3-13.5 90 CBC With Manual Diff 01/31/2012 White Blood Count 5.6 CUMM 4.8-10.8 Red Cell Count 4.25 CUMM 4.2-5.4 Hemoglobin 13.8 g/dL 12.0-16.0 Hematocrit 41 % 35-47 Mean Corpuscular Volume 95 um3 79-97 Mean Corpuscular Hemoglob 33 pg High 27-31 Mean Corpuscular HGB Cone 34 g/dL 32-36 Redcell Distribution WDTH 14 % 10.5-15 Platelet Count 165 CUMM 150-450 Mean Platelet Volume 10.1 um3 7.4-10.4 Absolute Neutrophil Count 3.2 1.5-7.7 Polysegmented Neutrophil 55 % 38-83 Lymphocyte 39 % 25-47 Monocyte 1 % 0-13 Eosinophil 4 % 0-6 Atypical Lymph 1 % 0-6 RBC Morphology NORMAL Vitamin D, 25 Hydroxy 01/31/2012 25-Hydroxy Vitamin D2 <4.0 ng/mL () 25-Hydroxy Vitamin D3 27 ng/mL () 25-Hydroxy Vitamin D Total 27 ng/mL () 91 Ua Routine 01/31/2012 Ua Specific [place] 1.015 Ua PH 5 Ua Color yellow Ua Appera clear Ua WBC neg Ua Protein neg Ua Glucose neg Ua Ketones neg Ua Bilirubin neg Ua Urobilinogen neg Ua Nitrite neg Ua Occult Blood small Laboratory test finding 07/05/2011 TSH 1.53 MIU/ML 0.34-5.60 Thyroxine Free 0.56 ng/dL Low 0.61-1.24 Laboratory test finding 04/18/2011 Ferritin < 10 NG/ML Low 11.0-307 Iron & Iron Binding Capacity 04/18/2011 Iron Total 69 g/dL 28-170 Unsaturated Iron Binding 452 g/dL Total Iron Binding Capacity 521 g/dL High 250-450 % Iron Saturation 13 % Low 15-55 CBC Auto Diff 04/18/2011 White Blood Count 4.0 CUMM Low 4.8-10.8 Red Cell Count 4.28 CUMM 4.2-5.4 Hemoglobin 12.7 g/dL 12.0-16.0 Hematocrit 38 % 35-47 Mean Corpuscular Volume 88 um3 79-97 Mean Corpuscular Hemoglob 30 pg 27-31 Mean Corpuscular HGB Cone 34 g/dL 32-36 Redcell Distribution WDTH 16 % High 10.5-15 Platelet Count 172 CUMM 150-450 Mean Platelet Volume 10.0 um3 7.4-10.4 Gran % 50.8 % 38-83 Lymph % 33.0 % 25-47 Mononuclear % 11.1 % High 1-9 Eosinophil % 4.0 % 0-6 Basophil % 1.1 % 0-2 Abs Lymphs 1.3 1.0-4.8 Abs Mononuclear 0.4 0-0.8 Absolute Neutrophil Count 2.0 1.5-7.7 Abs Eosinophils 0.2 0-0.6 Abs Basophils 0 0-0.2 Comp Metabolic Panel 04/18/2011 Sodium 141 mmol/L 135-145 Potassium 4.4 mmol/L 3.5-5.0 Chloride 103 mmol/L 101-111 Co2 (Carbon Dioxide) 31.0 mmol/L 22-32 Anion Gap 7.0 mmol/L 2-11 92 Glucose 93 mg/dL 70-100 BUN 12 mg/dL 6-24 Creatinine 0.8 mg/dL 0.50-1.40 One Over Creatinine 1.25 BUN/Creatinine Ratio 15.0 8-20 Calcium 9.4 mg/dL 8.1-9.9 Total Protein 6.9 GM/DL 6.2-8.1 Albumin 4.0 GM/DL 3.6-5.4 Globulin 2.9 GM/DL 2-4 Albumin/Globulin Ratio 1.4 1-3 Bilirubin Total 0.7 mg/dL 0.4-1.5 93 Alkaline Phosphatase 62 U/L 30-110 Alt (SGPT) 22 U/L 14-54 Ast (Sgot) 21 U/L 12-42 eGFR Non- 75.9 > 60 eGFR 97.6 > 60 94 Lipid Profile (Trig/Chol/HDL) 04/18/2011 Triglyceride 122 mg/dL 40-200 Cholesterol 240 mg/dL High Less Than 200 95 High Density Lipoprotein 65 mg/dL High 40-60 96 Cholesterol/HDL Ratio 3.69 AVERAGE 1-4.44 Low Density Lipoprotein 151 mg/dL High Less Than 100 97 Laboratory test finding 04/18/2011 CPK (Creatine Kinase) 108 U/L 0-170 Hepatitis B Surface AB 04/18/2011 Hepatitis B Surface AB Reactive Nonreactive Hbsab Index > 100.00 98 Laboratory test finding 04/18/2011 Hepatitis C Antibody Nonreactive Nonreactive Hepatitis B Surface Ag Nonreactive Nonreactive Hepatitis B Core AB, Total Positive Negative 99 Hepatitis Be Antibodies Positive Negative 100 Laboratory test finding 03/29/2011 Ferritin < 10 NG/ML Low 11.0-307 Iron & Iron Binding Capacity 03/29/2011 Iron Total 67 g/dL 28-170 Unsaturated Iron Binding 460 g/dL Total Iron Binding Capacity 527 g/dL High 250-450 % Iron Saturation 13 % Low 15-55 Vitamin D, 25 Hydroxy 03/29/2011 25-Hydroxy Vitamin D2 <4.0 ng/mL () 25-Hydroxy Vitamin D3 25 ng/mL () 25-Hydroxy Vitamin D Total 25 ng/mL () 101 CBC Auto Diff 03/29/2011 White Blood Count 4.9 CUMM 4.8-10.8 Red Cell Count 4.30 CUMM 4.2-5.4 Hemoglobin 12.9 g/dL 12.0-16.0 Hematocrit 38 % 35-47 Mean Corpuscular Volume 88 um3 79-97 Mean Corpuscular Hemoglob 30 pg 27-31 Mean Corpuscular HGB Cone 34 g/dL 32-36 Redcell Distribution WDTH 17 % High 10.5-15 Platelet Count 159 CUMM 150-450 Mean Platelet Volume 10.3 um3 7.4-10.4 Gran % 50.9 % 38-83 Lymph % 34.9 % 25-47 Mononuclear % 10.9 % High 1-9 Eosinophil % 2.7 % 0-6 Basophil % 0.6 % 0-2 Abs Lymphs 1.7 1.0-4.8 Abs Mononuclear 0.5 0-0.8 Absolute Neutrophil Count 2.5 1.5-7.7 Abs Eosinophils 0.1 0-0.6 Abs Basophils 0 0-0.2 1 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 The National Kidney Disease Education Program (NKDEP) does not endorse the use of the MDRD equation for patients that are not between the ages of 18 and 70, are , have extremes of body size, muscle mass, or nutritional status, or are non- or non-. According to the National Kidney Foundation, irrespective of diagnosis, the stage of the disease is based on the level of kidney function: Stage Description GFR(mL/min/1.73 m(2)) 1 Kidney damage with normal or decreased GFR 90 2 Kidney damage with mild decrease in GFR 60-89 3 Moderate decrease in GFR 30-59 4 Severe decrease in GFR 15-29 5 Kidney failure <15 (or dialysis) 3 Desirable: <150 Borderline High: 150-199 High: 200-499 Very High: >500 4 Desirable: <200 Borderline High: 200-239 High: >239 5 Low: <40 Desirable: 40-60 High: >60 6 Desirable: <100 Near Optimal: 100-129 Borderline High: 130-159 High: 160-189 Very High: >189 7 [facility] Severe Sepsis and Septic Shock Management Bundle Measure requires all lactic acids initially measuring >2.0 mmol/L be repeated. 8 Because ethnic data is not always readily available, this report includes an eGFR for both -Americans and non- Americans. The National Kidney Disease Education Program (NKDEP) does not endorse the use of the MDRD equation for patients that are not between the ages of 18 and 70, are , have extremes of body size, muscle mass, or nutritional status, or are non- or non-. According to the National Kidney Foundation, irrespective of diagnosis, the stage of the disease is based on the level of kidney function: Stage Description GFR(mL/min/1.73 m(2)) 1 Kidney damage with normal or decreased GFR 90 2 Kidney damage with mild decrease in GFR 60-89 3 Moderate decrease in GFR 30-59 4 Severe decrease in GFR 15-29 5 Kidney failure <15 (or dialysis) 9 99th percentile=0.04 ng/mL Troponin results at [facility] and [facility] are not interchangeable. 10 Desirable <150 Borderline high 150-199 High 200-499 Very High >500 11 Desirable <200 Borderline high 200-239 High >239 12 Low <40 Desirable: 40-60 High: >60 13 Desirable: <100 mg/dL Near Optimal: 100-129 mg/dL Borderline High: 130-159 mg/dL High: 160-189 mg/dL Very High: >189 mg/dL 14 [id number] 15 Because ethnic data is not always readily available, this report includes an eGFR for both -Americans and non- Americans. The National Kidney Disease Education Program (NKDEP) does not endorse the use of the MDRD equation for patients that are not between the ages of 18 and 70, are , have extremes of body size, muscle mass, or nutritional status, or are non- or non-. According to the National Kidney Foundation, irrespective of diagnosis, the stage of the disease is based on the level of kidney function: Stage Description GFR(mL/min/1.73 m(2)) 1 Kidney damage with normal or decreased GFR 90 2 Kidney damage with mild decrease in GFR 60-89 3 Moderate decrease in GFR 30-59 4 Severe decrease in GFR 15-29 5 Kidney failure <15 (or dialysis) 16 [id number] 17 [id number] 18 Serologic response to B. burgdorferi infection is not detected, but cannot rule out early infection during which low or undetectable antibody levels to B. burgdorferi may be present. If clinically indicated, a new serum specimen should be submitted in 7-14 days. Lipemic Test Performed by: [place] [address] Transmission Engineer: Quan Fishman II, M.D., Ph.D. 19 No laboratory evidence of von Willebrand's disease based on normal results of factor VIII activity, von Willebrand factor activity, and von Willebrand factor antigen. Note: von Willebrand factor antigen and activity and/or factor VIII may be increased above baseline levels by acute or chronic inflammation, stress or adrenergic stimuli, or estrogen and oral contraceptive therapy, or liver disease. Recent administration of desmopressin or von Willebrand factor concentrate may mask the diagnosis of von Willebrand's disease. Suggest clinical correlation. Interpretation not reviewed by physician. Test Performed by: [place] [address] Transmission Engineer: Quan Fishman II, M.D., Ph.D. 20 Test Performed by: [place] [address] Transmission Engineer: Quan Fishman II, M.D., Ph.D. 21 Result in log IU/mL is Undetected The quantification range of this assay is 20 IU/mL to 170,000,000 IU/mL (1.30 log IU/mL to 8.23 log IU/mL). Testing was performed by the CAROL AmpliPrep/CAROL TaqMan HBV test, version 2.0 ([employer] Test Performed by: [place] [address] Transmission Engineer: Quan Fishman II, M.D., Ph.D. 22 Test Performed by: [place] [address] Transmission Engineer: Quan Fishman II, M.D., Ph.D. 23 If clinically indicated, testing for Hepatitis B Core IgM antibody is necessary to differentiate between acute and past HBV infection. Test Performed by: [place] [address] Transmission Engineer: Quan Fishman II, M.D., Ph.D. 24 [id number] 25 This assay does not differentiate between reactivity due to a vaccine-induced immune response or an immune response induced by infection with HBV. 26 [id number] 27 SEE RESULT BELOW Name: LILIABELLOKEENA M : [address]: Kevin Boyd MD Acct: [id number] Unit: [id number] AGE: 55 Location: [facility] Re01/01/16 SEX: F Status: DEP ER SPEC: [id number] HASEEB: 01/01/[address]: Sara Palacio NP REQ: [id number] RECD: 01/02/16 STATUS: CELIA ERNANDEZ DR: [facility] Lui Samson MD _ SOURCE: URINE SPDESC: ORDERED: Urine Culture COMMENTS: [id number] Procedure Result Reported Site Urine Culture Final 01/03/16- 1457 ML No Growth (<1,000 CFU/mL) * ML - MAIN LAB ([facility]) . END OF REPORT * ML=Testing performed at Main Lab DEPARTMENT OF PATHOLOGY, [address] [place] [address] Wayne Duff M.D. Director [facility] # [id number] 28 [facility] Severe Sepsis and Septic Shock Management Bundle Measure requires all lactic acids initially measuring >2.0 mmol/L be repeated. 29 Reference Range and Interpretation: TnI (ng/mL) Interpretation Less Than 0.03 ng/mL Not supportive of diagnosis of NC 0.03 - 0.50 ng/mL Indeterminate: suggest serial studies if clinically indicated. Greater than 0.5 ng/mL Consistent with diagnosis of NC 30 Because ethnic data is not always readily available, this report includes an eGFR for both -Americans and non- Americans. The National Kidney Disease Education Program (NKDEP) does not endorse the use of the MDRD equation for patients that are not between the ages of 18 and 70, are , have extremes of body size, muscle mass, or nutritional status, or are non- or non-. According to the National Kidney Foundation, irrespective of diagnosis, the stage of the disease is based on the level of kidney function: Stage Description GFR(mL/min/1.73 m(2)) 1 Kidney damage with normal or decreased GFR 90 2 Kidney damage with mild decrease in GFR 60-89 3 Moderate decrease in GFR 30-59 4 Severe decrease in GFR 15-29 5 Kidney failure <15 (or dialysis) 31 Because ethnic data is not always readily available, this report includes an eGFR for both -Americans and non- Americans. The National Kidney Disease Education Program (NKDEP) does not endorse the use of the MDRD equation for patients that are not between the ages of 18 and 70, are , have extremes of body size, muscle mass, or nutritional status, or are non- or non-. According to the National Kidney Foundation, irrespective of diagnosis, the stage of the disease is based on the level of kidney function: Stage Description GFR(mL/min/1.73 m(2)) 1 Kidney damage with normal or decreased GFR 90 2 Kidney damage with mild decrease in GFR 60-89 3 Moderate decrease in GFR 30-59 4 Severe decrease in GFR 15-29 5 Kidney failure <15 (or dialysis) 32 Normal Range 180 to 914 Indeterminate Range 145 to 180 Deficient Range <145 33 SEE RESULT BELOW Name: KEENA COATES : [address]: Dwight Brown MD Acct: [id number] Unit: [id number] AGE: 55 Location: LAB Re04/14/15 SEX: F Status: REG REF SPEC: [id number] HASEEB: 04/14/[address] [facility] [address]: Dwight Brown MD REQ: [id number] RECD: 04/14/15 STATUS: SULTANA ERNANDEZ DR: Alcides Brody MD _ ORDERED: THIN PREP NON G FINAL DIAGNOSIS Urine, voided: Negative for malignant cells. URINE VOID CLINICAL HISTORY Gross hematuria GROSS DESCRIPTION 5 mls of cloudy peach colored urine. Signed (signature on file) Wayne Duff MD [id number] END OF REPORT * ML=Testing performed at Main Lab DEPARTMENT OF PATHOLOGY, [address] [place] [address] Wayne Duff M.D. Director [facility] # [id number] 34 Because ethnic data is not always readily available, this report includes an eGFR for both -Americans and non- Americans. The National Kidney Disease Education Program (NKDEP) does not endorse the use of the MDRD equation for patients that are not between the ages of 18 and 70, are , have extremes of body size, muscle mass, or nutritional status, or are non- or non-. According to the National Kidney Foundation, irrespective of diagnosis, the stage of the disease is based on the level of kidney function: Stage Description GFR(mL/min/1.73 m(2)) 1 Kidney damage with normal or decreased GFR 90 2 Kidney damage with mild decrease in GFR 60-89 3 Moderate decrease in GFR 30-59 4 Severe decrease in GFR 15-29 5 Kidney failure <15 (or dialysis) 35 Acute inflammation: >10.00 36 SEE RESULT BELOW Name: KEENA COATES Deanne : [address]: Eusebio Matute MD Acct: [id number] Unit: [id number] AGE: 54 Location: ED Re12/23/14 SEX: F Status: DEP ER SPEC: [id number] HASEEB: 12/24/[address]: Gene Godoy DO REQ: [id number] RECD: 12/24/14 STATUS: CELIA ERNANDEZ DR: Alcides Brody MD _ SOURCE: URINE SPDESC: ORDERED: Urine Culture Procedure Result Verified Site Urine Culture Final 12/26/14- 1034 ML Organism 1 NORMAL CHAVEZ [place] Count 25-50,000 (Moderate) CFU/ML * ML - MAIN LAB ([facility]) . END OF REPORT * ML=Testing performed at Main Lab DEPARTMENT OF PATHOLOGY, [address] [place] [address] Wayne Duff M.D. Director [facility] # [id number] 37 SEE RESULT BELOW Name: KEENA COATES : [address]: Eusebio Garcia MD Acct: [id number] Unit: [id number] AGE: 54 Location: [facility] Re12/23/14 SEX: F Status: DEP ER SPEC: [id number] HASEEB: 12/23/[address] [facility] [address]: Eusebio Garcia MD REQ: [id number] RECD: 12/24/14 STATUS: CELIA ERNANDEZ DR: [facility] Alcides Brody MD _ SOURCE: THROAT SPDESC: ORDERED: Throat Beta Str Procedure Result Verified Site Throat Beta Strep Culture Final 12/26/14- 0850 ML Negative For Group A Beta Streptococcus * ML - MAIN LAB ([facility]) . END OF REPORT * ML=Testing performed at Main Lab DEPARTMENT OF PATHOLOGY, [facility] [employer] [place], [place] [address] Wayne Duff M.D. Director CLIA # [id number] RUN DATE: 09/16/14 [facility] LAB LIVE PAGE 1 RUN TIME: 825 [facility] [employer] [place], [place] [address] Specimen Inquiry Name: KEENA COATES : [address]: Quan Guerrero MD Acct: [id number] Unit: [id number] AGE: 54 Location: ED Re09/14/14 SEX: F Status: DEP ER SPEC: [id number] HASEEB: 09/14/14-[address]: Quan Guerrero MD REQ: [id number] RECD: 09/14/14 STATUS: CELIA ERNANDEZ DR: Alcides Brody MD _ SOURCE: URINE [facility]: ORDERED: Urine Culture Procedure Result Verified Site Urine Culture Final 09/16/14- 825 ML Organism 1 NORMAL CHAVEZ [place] Count 10-25,000 (Moderate) CFU/ML * ML - MAIN LAB ([facility]) . END OF REPORT * ML=Testing performed at Main Lab DEPARTMENT OF PATHOLOGY, [address] [place] [address] Wayne Duff M.D. Director [facility] # [id number] 39 Please note: The following may produce a false positive D Dimer test: - Rheumatoid factor greater than 60 IU/ml - Plasma hemoglobin greater than 0.05 gm/dl - Bilirubin greater than 50 mg/dl - Lipids greater than 1000 mg/dl - FDP greater than 20 ug/ml 40 >100 to <200 pg/mL: likely compensated congestive heart failure (CHF) 200 to 400 pg/mL: likely moderate CHF >400 pg/mL: likely moderate to severe CHF [place] [facility] 41 Because ethnic data is not always readily available, this report includes an eGFR for both -Americans and non- Americans. The National Kidney Disease Education Program (NKDEP) does not endorse the use of the MDRD equation for patients that are not between the ages of 18 and 70, are , have extremes of body size, muscle mass, or nutritional status, or are non- or non-. According to the National Kidney Foundation, irrespective of diagnosis, the stage of the disease is based on the level of kidney function: Stage Description GFR(mL/min/1.73 m(2)) 1 Kidney damage with normal or decreased GFR 90 2 Kidney damage with mild decrease in GFR 60-89 3 Moderate decrease in GFR 30-59 4 Severe decrease in GFR 15-29 5 Kidney failure <15 (or dialysis) 42 Reference Range and Interpretation: TnI (ng/mL) Interpretation Less Than 0.03 ng/mL Not supportive of diagnosis of NC 0.03 - 0.50 ng/mL Indeterminate: suggest serial studies if clinically indicated. Greater than 0.5 ng/mL Consistent with diagnosis of NC 43 Acute inflammation: >10.00 44 Because ethnic data is not always readily available, this report includes an eGFR for both -Americans and non- Americans. The National Kidney Disease Education Program (NKDEP) does not endorse the use of the MDRD equation for patients that are not between the ages of 18 and 70, are , have extremes of body size, muscle mass, or nutritional status, or are non- or non-. According to the National Kidney Foundation, irrespective of diagnosis, the stage of the disease is based on the level of kidney function: Stage Description GFR(mL/min/1.73 m(2)) 1 Kidney damage with normal or decreased GFR 90 2 Kidney damage with mild decrease in GFR 60-89 3 Moderate decrease in GFR 30-59 4 Severe decrease in GFR 15-29 5 Kidney failure <15 (or dialysis) 45 Acute inflammation: >10.00 46 Results with Index Values of <18.00 are negative. Test Performed by: [facility] - [address] [address] Transmission Engineer: Quan Fishman II, M.D., Ph.D. 47 Results with Index Values of <8.95 are negative. Test Performed by: [facility] - [address] [address] Transmission Engineer: Quan Fishman II, M.D., Ph.D. 48 Results with Index Values of <36.00 are negative. Test Performed by: [facility] [place] [address] Transmission Engineer: Quan Fishman II, M.D., Ph.D. 49 RUN DATE: 08/21/14 [facility] LAB LIVE PAGE 1 RUN TIME: [address] [place] [address] Specimen Inquiry Name: KEENA COATES : [address]: Alcides Brody MD Acct: [id number] Unit: [id number] AGE: 54 Location: [facility] Re08/21/14 SEX: F Status: REG REF SPEC: [id number] HASEEB: 08/21/14-[address]: Alcides Brody MD REQ: [id number] RECD: 08/21/14 STATUS: RES _ SOURCE: STOOL SPDESC: ORDERED: E.coli O157:H7, Stool Culture, C. diff Amp DNA, O P (Full) QUERIES: Provider Requisition # [id number] Procedure Result Verified Site E.coli O157:H7 Culture PENDING Stool Culture PENDING Stool Specimen Description PENDING Shiga Toxin 1 2 PENDING C. difficile Amplified DNA Final 08/21/14- 1439 ML Organism 1 Neg: No C. difficile detected Assay tests for toxigenic C. difficile with Pathogen Locus (PALOC) TEST LIMITATIONS: Assay does not distinguish between viable and nonviable organisms. Test results are to be used in conjunction with information available from the patient clinical evaluation and other diagnostic procedures. Two distinct groups have been identified that can harbor C. difficile asymptomatically at very high rates. Colonization at rates up to 50% and higher have been reported in infants and rates up to 32% in cystic fibrosis patients. CONTINUED ON NEXT PAGE * ML=Testing performed at Main Lab DEPARTMENT OF PATHOLOGY, [facility] [employer] [place], [place] [address] Wayne Duff M.D. Director [facility] # [id number] RUN DATE: 08/21/14 [facility] LAB LIVE PAGE 2 RUN TIME: [address] [place] [address] Specimen Inquiry Patient: KEENA COATES [id number] (Continued) Specimen: [id number] Collected: 08/21/14-1029 Received: 08/21/14 (Continued) Procedure Result Verified Site C. difficile Amplified DNA Final (continued) 08/21/14- 1439 O P: Giardia/Cryptospor Screen Final 08/21/14- 140 ML Organism 1 Neg Cryptosporidium/Giardia Giardia and cryptosporidium antigen testing performed by enzyme immunoassay. The use of colonic washes, aspirates or other diluted sample types has not been established and could affect the performance of the assay. Stool samples contaminated with an oily or particulate base (eg. Barium, mineral oil etc.) could interfere with the test and are not recommended. Ova Parasite Concen Full PENDING * ML - MAIN LAB ([facility]) . END OF REPORT * ML=Testing performed at Main Lab DEPARTMENT OF PATHOLOGY, [address] [place] [address] Wayne Duff M.D. Director [facility] # [id number] REFERENCE RANGE: NOT DETECTED The Entamoeba histolytica antigen EIA test detects only the antigen of the pathogenic E. histolytica; the non-pathogenic E. dispar is not detected. Test Performed by: [employer]. [id number] [place] [address] 51 RUN DATE: 08/23/14 [facility] LAB LIVE PAGE 1 RUN TIME: [address] [place] [address] Specimen Inquiry Name: KEENA COATES Deanne : [address]: Alcides Brody MD Acct: [id number] Unit: [id number] AGE: 54 Location: [facility] Re08/21/14 SEX: F Status: REG REF SPEC: [id number] HASEEB: 08/21/14-[address] [facility] [address]: Alcides Brody MD REQ: [id number] RECD: 08/21/14 STATUS: RES _ SOURCE: STOOL [facility]: ORDERED: E.coli O157:H7, Stool Culture, C. diff Amp DNA, O P (Full) QUERIES: Provider Requisition # [id number] Procedure Result Verified Site E.coli O157:H7 Culture Final 08/23/14- 1111 ML E. coli 0157 Culture Negative Stool Culture Final 08/23/14- 1111 ML Result No enteric pathogens isolated Testing for Salmonella, Shigella, Aeromonas, Plesiomonas, Yersinia and Campylobacter are included in a Stool Culture. Vibrio spp not routinely tested for in a stool culture. If testing is desired, please request specifically when placing test order. Sensitivities not routinely performed on stool isolates, as antibiotics may prolong the carriage rate of bacteria. Please contact the microbiology lab if sensitivities are required. Stool Specimen Description Final 08/22/14- 0720 ML Stool Color Greenish Brown Stool Form Nonformed Stool Consistency Liquid Shiga Toxin 1 2 PENDING C. difficile Amplified DNA Final 08/21/14- 1439 ML CONTINUED ON NEXT PAGE * ML=Testing performed at [facility] Lab DEPARTMENT OF PATHOLOGY, [address] [place] [address] Wayne Duff M.D. Director [facility] # [id number] RUN DATE: 08/23/14 [facility] LAB LIVE PAGE 2 RUN TIME: [address] [place] [address] Specimen Inquiry Patient: LILIAKEENA M [id number] (Continued) Specimen: [id number] Collected: 08/21/14 Received: 08/21/14-1056 (Continued) Procedure Result Verified Site C. difficile Amplified DNA Final (continued) 08/21/14- 1439 Organism 1 Neg: No C. difficile detected Assay tests for toxigenic C. difficile with Pathogen Locus (PALOC) TEST LIMITATIONS: Assay does not distinguish between viable and nonviable organisms. Test results are to be used in conjunction with information available from the patient clinical evaluation and other diagnostic procedures. Two distinct groups have been identified that can harbor C. difficile asymptomatically at very high rates. Colonization at rates up to 50% and higher have been reported in infants and rates up to 32% in cystic fibrosis patients. O P: Giardia/Cryptospor Screen Final 08/21/14- 1409 ML Organism 1 Neg Cryptosporidium/Giardia Giardia and cryptosporidium antigen testing performed by enzyme immunoassay. The use of colonic washes, aspirates or other diluted sample types has not been established and could affect the performance of the assay. Stool samples contaminated with an oily or particulate base (eg. Barium, mineral oil etc.) could interfere with the test and are not recommended. Ova Parasite Concen Full PENDING * ML - MAIN LAB ([facility]) . END OF REPORT * ML=Testing performed at Main Lab DEPARTMENT OF PATHOLOGY, [facility] [employer] [place], [place] [address] Wayne Duff M.D. Director [facility] # [id number] RUN DATE: 08/25/14 [facility] LAB LIVE PAGE 1 RUN TIME: 4115 [facility] [employer] [place], [place] [address] Specimen Inquiry Name: KEENA COATES : [address]: Alcides Brody MD Acct: [id number] Unit: [id number] AGE: 54 Location: [facility] Re08/21/14 SEX: F Status: REG REF SPEC: [id number] HASEEB: 08/21/14-[address]: Alcides Brody MD REQ: [id number] RECD: 08/21/14 STATUS: COMP _ SOURCE: STOOL [facility]: ORDERED: E.coli O157:H7, Stool Culture, C. diff Amp DNA, O P (Full) QUERIES: Provider Requisition # [id number] Procedure Result Verified Site E.coli O157:H7 Culture Final 08/23/14- 1111 ML E. coli 0157 Culture Negative Stool Culture Final 08/23/14- 1111 ML Result No enteric pathogens isolated Testing for Salmonella, Shigella, Aeromonas, Plesiomonas, Yersinia and Campylobacter are included in a Stool Culture. Vibrio spp not routinely tested for in a stool culture. If testing is desired, please request specifically when placing test order. Sensitivities not routinely performed on stool isolates, as antibiotics may prolong the carriage rate of bacteria. Please contact the microbiology lab if sensitivities are required. Stool Specimen Description Final 08/22/14- 0720 ML Stool Color Greenish Brown Stool Form Nonformed Stool Consistency Liquid Shiga Toxin 1 2 Final 08/24/14- 1112 ML Organism 1 Negative Shiga Toxin 1 2 CONTINUED ON NEXT PAGE * ML=Testing performed at Main Lab DEPARTMENT OF PATHOLOGY, [facility] [employer] [place], [place] [address] Wayen Duff M.D. Director [facility] # [id number] RUN DATE: 08/25/14 [facility] LAB LIVE PAGE 2 RUN TIME: 1608 [facility] [employer] [place], [place] [address] Specimen Inquiry Patient: KEENA COATES [id number] (Continued) Specimen: [id number] Collected: 08/21/14-1029 Received: 08/21/14 (Continued) Procedure Result Verified Site Shiga Toxin 1 2 Final (continued) 08/24/14- 1112 Immunochromatographic Assay C. difficile Amplified DNA Final 08/21/14- 1439 ML Organism 1 Neg: No C. difficile detected Assay tests for toxigenic C. difficile with Pathogen Locus (PALOC) TEST LIMITATIONS: Assay does not distinguish between viable and nonviable organisms. Test results are to be used in conjunction with information available from the patient clinical evaluation and other diagnostic procedures. Two distinct groups have been identified that can harbor C. difficile asymptomatically at very high rates. Colonization at rates up to 50% and higher have been reported in infants and rates up to 32% in cystic fibrosis patients. O P: Giardia/Cryptospor Screen Final 08/21/14- 1409 ML Organism 1 Neg Cryptosporidium/Giardia Giardia and cryptosporidium antigen testing performed by enzyme immunoassay. The use of colonic washes, aspirates or other diluted sample types has not been established and could affect the performance of the assay. Stool samples contaminated with an oily or particulate base (eg. Barium, mineral oil etc.) could interfere with the test and are not recommended. Ova Parasite Concen Full Final 08/25/14- 1608 ML CONTINUED ON NEXT PAGE * ML=Testing performed at Main Lab DEPARTMENT OF PATHOLOGY, [facility] [employer] [place] [address] Wayne Duff M.D. Director [facility] # [id number] RUN DATE: 08/25/14 [facility] LAB LIVE PAGE 3 RUN TIME: [address] [place] [address] Specimen Inquiry Patient: KEENA COATES [id number] (Continued) Specimen: [id number] Collected: 08/21/14-1029 Received: 08/21/14 (Continued) Procedure Result Verified Site Ova Parasite Concen Full Final (continued) 08/25/14- 1608 Final Result No Ova Parasites seen by Ethyl Acetate Concentration No Cysts or Trophs Seen on Trichrome smear * ML - MAIN LAB ([facility]) . END OF REPORT * ML=Testing performed at Main Lab DEPARTMENT OF PATHOLOGY, [facility] [employer] [place], [place] [address] Wayne Duff M.D. Director [facility] # [id number] RUN DATE: 08/24/14 [facility] LAB LIVE PAGE 1 RUN TIME: 1112 [facility] [employer] [place], [place] [address] Specimen Inquiry Name: KEENA COATES : [address]: Alcides Brody MD Acct: [id number] Unit: [id number] AGE: 54 Location: [facility] Re08/21/14 SEX: F Status: REG REF SPEC: [id number] HASEEB: 08/21/14-[address]: Alcides Brody MD REQ: [id number] RECD: 08/21/14 STATUS: RES _ SOURCE: STOOL [facility]: ORDERED: E.coli O157:H7, Stool Culture, C. diff Amp DNA, O P (Full) QUERIES: Provider Requisition # [id number] Procedure Result Verified Site E.coli O157:H7 Culture Final 08/23/14- 1111 ML E. coli 0157 Culture Negative Stool Culture Final 08/23/14- 1111 ML Result No enteric pathogens isolated Testing for Salmonella, Shigella, Aeromonas, Plesiomonas, Yersinia and Campylobacter are included in a Stool Culture. Vibrio spp not routinely tested for in a stool culture. If testing is desired, please request specifically when placing test order. Sensitivities not routinely performed on stool isolates, as antibiotics may prolong the carriage rate of bacteria. Please contact the microbiology lab if sensitivities are required. Stool Specimen Description Final 08/22/14- 0720 ML Stool Color Greenish Brown Stool Form Nonformed Stool Consistency Liquid Shiga Toxin 1 2 Final 08/24/14- 1112 ML Organism 1 Negative Shiga Toxin 1 2 CONTINUED ON NEXT PAGE * ML=Testing performed at Main Lab DEPARTMENT OF PATHOLOGY, [address] [place], [place] [address] Wayne Duff M.D. Director [facility] # [id number] RUN DATE: 08/24/14 [facility] LAB LIVE PAGE 2 RUN TIME: [address] [place] [address] Specimen Inquiry Patient: KEENA COATES [id number] (Continued) Specimen: [id number] Collected: 08/21/14-1029 Received: 08/21/14 (Continued) Procedure Result Verified Site Shiga Toxin 1 2 Final (continued) 08/24/14- 1112 Immunochromatographic Assay C. difficile Amplified DNA Final 08/21/14- 1439 ML Organism 1 Neg: No C. difficile detected Assay tests for toxigenic C. difficile with Pathogen Locus (PALOC) TEST LIMITATIONS: Assay does not distinguish between viable and nonviable organisms. Test results are to be used in conjunction with information available from the patient clinical evaluation and other diagnostic procedures. Two distinct groups have been identified that can harbor C. difficile asymptomatically at very high rates. Colonization at rates up to 50% and higher have been reported in infants and rates up to 32% in cystic fibrosis patients. O P: Giardia/Cryptospor Screen Final 08/21/14- 1409 ML Organism 1 Neg Cryptosporidium/Giardia Giardia and cryptosporidium antigen testing performed by enzyme immunoassay. The use of colonic washes, aspirates or other diluted sample types has not been established and could affect the performance of the assay. Stool samples contaminated with an oily or particulate base (eg. Barium, mineral oil etc.) could interfere with the test and are not recommended. Ova Parasite Concen Full PENDING * ML - MAIN LAB ([facility]) . END OF REPORT * ML=Testing performed at Main Lab DEPARTMENT OF PATHOLOGY, [address] [place] [address] Wayne Duff M.D. Director [facility] # [id number] 54 Effective July 17, 2014 at 12:00pm there is an updated reference range. 55 Because ethnic data is not always readily available, this report includes an eGFR for both -Americans and non- Americans. The National Kidney Disease Education Program (NKDEP) does not endorse the use of the MDRD equation for patients that are not between the ages of 18 and 70, are , have extremes of body size, muscle mass, or nutritional status, or are non- or non-. According to the National Kidney Foundation, irrespective of diagnosis, the stage of the disease is based on the level of kidney function: Stage Description GFR(mL/min/1.73 m(2)) 1 Kidney damage with normal or decreased GFR 90 2 Kidney damage with mild decrease in GFR 60-89 3 Moderate decrease in GFR 30-59 4 Severe decrease in GFR 15-29 5 Kidney failure <15 (or dialysis) 56 Because ethnic data is not always readily available, this report includes an eGFR for both -Americans and non- Americans. The National Kidney Disease Education Program (NKDEP) does not endorse the use of the MDRD equation for patients that are not between the ages of 18 and 70, are , have extremes of body size, muscle mass, or nutritional status, or are non- or non-. According to the National Kidney Foundation, irrespective of diagnosis, the stage of the disease is based on the level of kidney function: Stage Description GFR(mL/min/1.73 m(2)) 1 Kidney damage with normal or decreased GFR 90 2 Kidney damage with mild decrease in GFR 60-89 3 Moderate decrease in GFR 30-59 4 Severe decrease in GFR 15-29 5 Kidney failure <15 (or dialysis) 57 FASTING~PATIENT HAD BARIUM BEVERAGE WITH CRYSTALS AT 08:30 AM PRIOR~TO BLOODWORK 58 Because ethnic data is not always readily available, this report includes an eGFR for both -Americans and non- Americans. The National Kidney Disease Education Program (NKDEP) does not endorse the use of the MDRD equation for patients that are not between the ages of 18 and 70, are , have extremes of body size, muscle mass, or nutritional status, or are non- or non-. According to the National Kidney Foundation, irrespective of diagnosis, the stage of the disease is based on the level of kidney function: Stage Description GFR(mL/min/1.73 m(2)) 1 Kidney damage with normal or decreased GFR 90 2 Kidney damage with mild decrease in GFR 60-89 3 Moderate decrease in GFR 30-59 4 Severe decrease in GFR 15-29 5 Kidney failure <15 (or dialysis) 59 Desirable <150 Borderline high 150-199 High 200-499 Very High >500 60 Desirable <200 Borderline high 200-239 High >239 61 Low <40 Desirable: 40-60 High: >60 62 Desirable <100 Near Optimal 100-129 Borderline high 130-159 High 160-189 Very High >189 63 RUN DATE: 11/03/13 [facility] LAB LIVE PAGE 1 RUN TIME: [address] [place] [address] Specimen Inquiry Name: KEENA COATES : [address]: Tarsha Underwood MD Acct: [id number] Unit: [id number] AGE: 53 Location: [facility] Re10/31/13 SEX: F Status: REG REF SPEC: [id number] HASEEB: 10/31/[address]: Tarsha Underwood MD REQ: [id number] RECD: 10/31/13 STATUS: SOUT _ ORDERED: IMAGE ANALYSIS, HPV/Thin Prep FINAL DIAGNOSIS Negative for Intraepithelial lesion or Malignancy COMMENTS: Specimen sent to [facility] in [place], [place] on 11/03/13 by [id number] at 1220. Results will be reported separately. A. Ectocervical/Endocervical Specimen Adequacy: Satisfactory of evaluation Transformation zone component cannot be definitely identified due to presence of atrophy or other hormonal changes Patient Information: HPV: High risk HPV DNA testing regardless of pap results. Actual Specimen Date: 10/31/13 LMP If Unknown: 2011 Signed (signature on file) GRAY Cohen (ASCP) 11/03/13 1229 This Pap test was evaluated with the assistance of the [employer] Sweden[employer] Test Imaging System. Due to cytologic findings at the soil technologist microscope, comprehensive manual rescreening by a Venue Attendant may be required. The Pap Smear is a screening test designed to aid in the detection of premalignant and malignant conditions of the uterine cervix. It is not a diagnostic procedure and should not be used as the sole means of detecting cervical cancer. Both false- positive and false- negative reports do occur. Depending on your risk status, a Pap smear shoudl be obtained and evaluated every 1-3 years. END OF REPORT * ML=Testing performed at Main Lab DEPARTMENT OF PATHOLOGY, [address] [place] [address] Wayne Duff M.D. Director [facility] # [id number] RESULT: Ectocervical/Endocervical 65 The following Other High Risk HPV types were not detected: 31, 33, 35, 39, 45, 51, 52, 56, 58, 59, 66, and 68 Test Performed by: [address] [address] Transmission Engineer: Jorge Luis Ruiz III, M.D. 66 Normal Range 180 to 914 Indeterminate Range 145 to 180 Deficient Range <145 67 Because ethnic data is not always readily available, this report includes an eGFR for both -Americans and non- Americans. The National Kidney Disease Education Program (NKDEP) does not endorse the use of the MDRD equation for patients that are not between the ages of 18 and 70, are , have extremes of body size, muscle mass, or nutritional status, or are non- or non-. According to the National Kidney Foundation, irrespective of diagnosis, the stage of the disease is based on the level of kidney function: Stage Description GFR(mL/min/1.73 m(2)) 1 Kidney damage with normal or decreased GFR 90 2 Kidney damage with mild decrease in GFR 60-89 3 Moderate decrease in GFR 30-59 4 Severe decrease in GFR 15-29 5 Kidney failure <15 (or dialysis) 68 RUN DATE: 09/08/13 [facility] LAB LIVE PAGE 1 RUN TIME: [address] [place] [address] Specimen Inquiry Name: KEENA COATES : [address]: Vasyl Richards MD Acct: [id number] Unit: [id number] AGE: 53 Location: ED Re09/06/13 SEX: F Status: DEP ER SPEC: [id number] HASEEB: 09/06/[address]: Patrizia TSAI REQ: [id number] RECD: 09/06/13 STATUS: CELIA ERNANDEZ DR: Vasyl Underwood MD _ S[facility] ORDERED: Urine Culture Procedure Result Verified Site Urine Culture Final 09/08/13- 0940 ML Organism 1 NORMAL CHAVEZ [place] Count 1-10,000 (Few) CFU/ML END OF REPORT * ML=Testing performed at Main Lab DEPARTMENT OF PATHOLOGY, [address] [place] [address] Wayne Duff M.D. Director [facility] Permit #[id number] 69 FASTING 70 Normal Range 180 to 914 Indeterminate Range 145 to 180 Deficient Range <145 71 -- REFERENCE VALUE -- 25-HYDROXY D TOTAL (D2+D3) Optimum levels in the healthy population are 20-50, patients with bone disease may benefit from higher levels within this range. Test Performed by: [facility] [address] [address] Transmission Engineer: Jorge Luis Ruiz III, M.D. 72 Desirable <150 Borderline high 150-199 High 200-499 Very High >500 73 Desirable <200 Borderline high 200-239 High >239 74 Low <40 Desirable: 40-60 High: >60 75 Desirable <100 Near Optimal 100-129 Borderline high 130-159 High 160-189 Very High >189 76 FASTING 77 FASTING 78 2+ (>10-30 /hpf) 79 RUN DATE: 03/23/13 [facility] LAB LIVE PAGE 1 RUN TIME: [address] [place] [address] Specimen Inquiry Name: KEENA COATES : [address]: Tez Olmstead RPA- Acct: [id number] Unit: [id number] AGE: 53 Location: LAB Re03/21/13 SEX: F Status: REG REF SPEC: [id number] HASEEB: 03/21/13-[address] [facility] [address]: Tez COWAN REQ: [id number] RECD: 03/21/135 STATUS: CELIA ERNANDEZ DR: Tarsha Underwood MD _ SOURCE: URINE SPDESC: ORDERED: Urine Culture Procedure Result Verified Site Urine Culture Final 03/23/13- 0857 ML Organism 1 NORMAL CHAVEZ [place] Count 75-100,000 (Many) CFU/ML END OF REPORT * ML=Testing performed at Main Lab DEPARTMENT OF PATHOLOGY, [address] [place] [address] Wayne Duff M.D. Director [facility] Permit #[id number] 80 Dipstick not performed due to tech error 81 2+ (>10-30 /hpf) 82 PT IS FASTING 83 HDL Interpretation: Undesirable: High Risk: Less than 40 MG/DL Desirable: Low Risk: Greater than 60 MG/DL 84 LDL Interpretation: Low Risk Optimal Level: LDL Less than 100 MG/DL Near or Above Optimal: LDL 100-129 MG/DL Borderline High Risk: LDL 130-159 MG/DL High Risk: LDL 160-189 MG/DL Very High Risk: LDL Greater than 189 MG/DL 85 Normally menstruating females - Follicular phase 3 - 9 - Mid-cycle peak 4 - 23 - Luteal phase 1 - 6 Postmenopausal females 16 - 114 86 * MALES: < 5.0 MIU/ML NON FEMALES < 5.0 MIU/ML APPROX GESTATIONAL AGE APPROX HCG RANGE 0-1 WEEK < 5.0-50 1-2 WEEKS 50-500 2-3 WEEKS 100-5000 3-4 WEEKS 500-10,000 1-2 MONTHS 10,000-200,000 2-3 MONTHS 15,000-100,000 PLEASE NOTE: The intended use of this assay is the quantitative determination of HCG in human serum or plasma for the early detection of . These assays should not be used to diagnose any condition unrelated to . If an HCG level is inconsistent with, or unsupported by, clinical evidence, results should be confirmed by an alternate HCG method. . 87 Anion gap measurement may be of limited value in the presence of any alkalosis, especially in a combined acid base disorder. . 88 Because ethnic data is not always readily available, this report includes an eGFR for both -Americans and non- Americans. The National Kidney Disease Education Program (NKDEP) does not endorse the use of the MDRD equation for patients that are not between the ages of 18 and 70, are , have extremes of body size, muscle mass, or nutritional status, or are non- or non-. According to the National Kidney Foundation, irrespective of diagnosis, the stage of the disease is based on the level of kidney function: Stage Description GFR(mL/min/1.73 m(2)) 1 Kidney damage with normal or decreased GFR 90 2 Kidney damage with mild decrease in GFR 60-89 3 Moderate decrease in GFR 30-59 4 Severe decrease in GFR 15-29 5 Kidney failure <15 (or dialysis) 89 Recommended INR for Patients on Oral Anticoagulants Prophylaxis 2.0 - 3.0 Treatment of thrombosis 2.0 - 3.0 Prevention of embolism 2.0 - 3.0 Prevention of embolism from prosthetic heart valves 2.5 - 3.5 90 DIAGNOSIS,TREATMENT,AND THERAPY MUST BE BASED ON THE INR VALUE ALONE. 91 -- REFERENCE VALUE -- 25-HYDROXY D TOTAL (D2+D3) Optimum levels in the normal population are 25-80 Test Performed by: [address] [address] Transmission Engineer: Jorge Luis Ruiz III, M.D. 92 Anion gap measurement may be of limited value in the presence of any alkalosis, especially in a combined acid base disorder. . 93 A metabolite of Naproxen, O-desmethylnaproxen, has been shown to interfere with the Jendrassik-Amish method for measuring total bilirubin. Samples from patients who have taken Naproxen have shown spurious elevation in total bilirubin levels. 94 Because ethnic data is not always readily available, this report includes an eGFR for both -Americans and non- Americans. The National Kidney Disease Education Program (NKDEP) does not endorse the use of the MDRD equation for patients that are not between the ages of 18 and 70, are , have extremes of body size, muscle mass, or nutritional status, or are non- or non-. According to the National Kidney Foundation, irrespective of diagnosis, the stage of the disease is based on the level of kidney function: Stage Description GFR(mL/min/1.73 m(2)) 1 Kidney damage with normal or decreased GFR 90 2 Kidney damage with mild decrease in GFR 60-89 3 Moderate decrease in GFR 30-59 4 Severe decrease in GFR 15-29 5 Kidney failure <15 (or dialysis) 95 CHOLESTEROL INTERPRETATION: Desirable: Less than 200 MG/DL Borderline-High Risk: 200-239 MG/DL High-Risk: 240 MG/DL and over 96 HDL INTERPRETATION: Undesirable: High Risk: Less than 40 MG/DL Desirable: Low Risk: Greater than 60 MG/DL 97 LDL INTERPRETATION: Low Risk Optimal Level: LDL Less than 100 MG/DL Near or Above Optimal: LDL 100-129 MG/DL Borderline High Risk: LDL 130-159 MG/DL High Risk: LDL 160-189 MG/DL Very High Risk: LDL Greater than 189 MG/DL 98 The World Health Organization (WHO) Hepatitis B Immunoglobulin 1st International Reference Preparation (1976): The accepted criteria for immunity to HBV is anti-HBs activity greater than or equal to 10 mIU/mL. An Index Value of 1.00 is equivalent to 10 mIU/mL. Samples with an Index Value of 1.00 or greater are considered reactive (protective) in accordance with the CDC guidelines. 99 If clinically indicated, testing for Hepatitis B Core IgM antibody is necessary to differentiate between acute and past HBV infection. Test Performed by: [facility] Med [facility] Pathology [address] [place] [address] Transmission Engineer: Jorge Luis Ruiz III, M.D. 100 Test Performed by: [facility] [address] [place] [address] Transmission Engineer: Jorge Luis Ruiz III, M.D. 101 -- REFERENCE VALUE -- 25-HYDROXY D TOTAL (D2+D3) Optimum levels in the normal population are 25-80 Test Performed by: [facility] Pathology [address] [place] [address] Transmission Engineer: Jorge Luis Ruiz III, M.D. Procedures Date CPT Code Description Status Comment 03/12/2017 Mammogram Completed 12/21/2015 Mammogram Completed 12/15/2014 Mammogram Completed 02/17/2014 Colonoscopy Completed 11/18/2013 Mammogram Completed 01/31/2012 75502 EKG Tracing & Completed Interpretation 12/26/2011 Mammogram Completed 08/24/[address] Encinas, 2 hyperplastic polyps per [facility] Encounters Type Date Location Provider CPT E/M Dx Office Visit 07/02/2017 [facility] [place], [address] Z98.84 9:45a [facility] FACS K21.9 Office Visit 04/10/2017 8:00a [facility] Internal Lui Samson M.D. 91178 J06.9 Medicine - [address] M25.571 Office Visit 03/27/2017 2:40p [facility] Internal Lui Samson 62280 Z01.818 [facility] - [place]vin Roberson N90.3 J06.9 Office Visit 02/13/2017 11:30a [facility] [address] G43.009 R94.02 R42 R13.10 Office Visit 01/30/2017 11:20a [facility] Internal Beba Samson M.D. [address] - [address] K21.9 J45.909 E66.9 G47.00 Office Visit 11/03/2016 11:00a [facility] [place] [address] R94.02 Services Of [facility] R42 Office Visit 10/17/2016 9:00a [facility] Internal Lui Samson, 35628 Z00.00 Medicine - [place]vin Roberson E78.2 R31.9 E87.6 Office Visit 10/13/2016 2:00p [facility] Internal Alfredo Trevizo, 79927 R94.02 Medicine - [place] Roberson,FACP H81.399 E87.6 Office Visit 10/09/2016 1:20p [facility] Gayatri Samson M.D. 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 Office Visit 06/30/2016 2:40p [facility] Internal Alfredo Trevizo, 23658 J45.41 Medicine - [address] M.DDoug,FACP Office Visit 01/11/2016 7:40a [facility] Internal Lui Samson, 69643 K21.9 Medicine - [address] M.DDoug R31.9 D69.6 R94.5 G43.019 Office Visit 12/10/2015 2:20p [facility] Internal Medicine - Darin Luna, MICHAELLE [address] Office Visit 12/03/2015 10:45a Neurosurgery Services Kevin Cottrell, 02078 M54.5 [facility] At Ronnie Roberson Office Visit 11/09/2015 8:00a [facility] Internal Medicine - Lui Samson, [address] M.DDoug J20.9 Office Visit 11/01/2015 3:00p [facility] Internal Medicine - Darin Luna, MICHAELLE [address] R05 Office Visit 09/28/2015 8:00a [facility] Internal Lui Samson, 54952 M51.16 Medicine - [address] M.DDoug S40.021A R53.83 Z23 Office Visit 08/31/2015 7:40a [facility] Internal Lui Samson, 95672 M51.16 Medicine - [address] M.D. Office Visit 08/17/2015 2:20p [facility] Internal Lui Samson, 03215 M51.16 Medicine - [address] M.DDoug M25.552 Office Visit 06/04/2015 1:20p [facility] Internal Medicine Josh Brody M.D. [address] M54.2 M54.5 Office Visit 04/08/2015 9:20a [facility] Internal Medicine - Alcides Brody, [address] M.D. Office Visit 03/02/2015 9:40a [facility] Internal [facility] Alcides Brody, [address] M.D. Office Visit 12/25/2014 4:00p [facility] Internal [facility] Alcides Brody [address] M.D. Office Visit 11/09/2014 10:30a Neurosurgery Services Kevin Cottrell 77320 724.2 Of [facility] M.D. Office Visit 09/08/2014 3:40p [facility] Internal [facility] Alcides Brody [address] M.D. 535.40 787.20 535.50 Office Visit 08/26/2014 10:00a Neurosurgery Services Keivn Cottrell M.D. 67904 724.2 Of [facility] Office Visit 08/25/2014 3:20p [facility] Internal Beba Brody M.D. [address] 787.91 724.2 724.8 Office Visit 08/20/2014 11:20a [facility] Internal Medicine Alcides Brody M.D. 26194 009.3 - [address] 276.51 787.91 Office Visit 07/29/2014 10:30a [facility] Kevin Cottrell 69330 724.2 [facility] M.D. Office Visit 06/24/2014 3:30p [facility]surgery Services Kevin Cottrell 51790 724.2 [facility] M.D. Office Visit 06/09/2014 2:40p [facility] Internal [facility] Josh Brody, 09856 493.00 Ayla Roberson 784.0 724.5 722.52 Office Visit 04/24/2014 3:00p [facility] Internal Medicine Alcides Brody M.D. 43449 724.5 - Ayla 722.91 722.52 Office Visit 03/31/2014 10:20a [facility] Internal Medicine Maurilio Torrez, 84181 719.42 - Ayla Roberson V04.81 Office Visit 03/03/2014 4:00p [facility] [place] [address] 465.9 - [place] Office Visit 01/27/2014 11:00a [facility] Internal Medicine Eusebio Flores, LASER SPECIALIST 56060 723.1 - [place] Office Visit 01/06/2014 11:40a [facility] Internal Medicine Johana Ferreira, N.P. 34592 530.81 - [place] Office Visit 10/31/2013 2:00p [facility] Internal Medicine Tarsha Underwood M.D. 99227 V76.2 - [place] V76.10 V70.0 296.31 535.00 V45.86 Office Visit 09/30/2013 10:20a [facility] Internal Medicine Johana Ferreira, N.P. 34994 528.9 - [place] Office Visit 09/12/2013 1:40p [facility] Internal Medicine Tarsha Underwood M.D. 64988 599.70 - [place] 724.5 Office Visit 09/02/2013 11:20a [facility] Internal Medicine Johana Ferreira, N.P. 61990 465.9 - [place] 535.00 724.5 Office Visit 06/27/2013 2:40p [facility] Internal Medicine - Tarsha Underwood M.D. 82019 722.93 [place] 724.5 Office Visit 05/26/2013 3:00p [facility] Internal Medicine - Tarsha Underwood M.D. 58932 722.93 [place] 724.5 Office Visit 03/21/2013 11:40a [facility] Internal Medicine - Tarsha Underwood M.D. 32305 724.5 [place] 599.70 719.45 Office Visit 02/03/2013 9:00a [facility] Internal Medicine Josh Underwood M.D. 24108 296.31 [place] 724.5 Office Visit 12/18/2012 11:20a [facility] Internal Medicine Tarsha Underwood M.D. 27238 724.5 - [place] Office Visit 12/10/2012 3:40p [facility] Internal Medicine Johana Ferreira, N.P. 15550 724.5 - [place] Office Visit 08/30/2012 1:40p [facility] Internal Medicine Tarsha Underwood M.D. 54253 530.12 - [place] 724.5 296.31 626.8 V70.0 Office Visit 08/05/2012 10:40a [facility] Internal Medicine - Tarsha Underwood M.D. 93039 724.5 [place] 296.31 530.12 Office Visit 07/01/2012 2:20p [facility] Internal Medicine Tarsha Underwood M.D. 24901 724.5 [place] 722.93 Office Visit 05/31/2012 2:20p [facility] Internal [facility] Tarsha Underwood M.D. 44974 724.5 [place] Office Visit 04/24/2012 10:40a [facility] Internal Medicine Tarsha Underwood M.D. 88271 722.93 [place] 709.9 Office Visit 04/03/2012 9:20a [facility] Internal [facility] Tarsha Underwood M.D. 47023 722.93 [place] Office Visit 03/27/2012 12:40p [facility] Internal [facility] Tarsha Underwood M.D. 50386 724.5 [place] 722.93 Office Visit 03/15/2012 10:40a [facility] Internal Medicine Tarsha Underwood M.D. 09039 722.93 [place] 724.5 Office Visit 01/31/2012 11:20a [facility] Internal [facility] Tarsha Underwood M.D. 64954 722.93 [place] 493.90 V45.86 296.31 281.9 Office Visit 01/08/2012 9:40a [facility] Internal [facility] Tarsha Underwood M.D. 28063 782.3 [place] 724.5 493.90 Office Visit 11/17/2011 4:00p [facility] Internal Medicine Tarsha Underwood M.D. 45567 722.93 [place] 724.5 995.3 Office Visit 11/03/2011 12:40p [facility] Internal [facility] Tarsha Underwood M.D. 23301 722.93 [place] Office Visit 10/13/2011 2:00p [facility] Internal Medicine Tarsha Underwood M.D. 60037 722.93 [place] 724.5 V45.86 Office Visit 09/13/2011 10:40a [facility] Internal Medicine Trasha Underwood M.D. 70543 722.93 [place] V45.86 Office Visit 07/28/2011 10:40a [facility] Internal Medicine - Tarsha Underwood M.D. 01342 722.93 [place] 783.1 296.31 789.02 Office Visit 07/11/2011 4:20p [facility] Medicine Johana Jhon, N.P. 42859 724.5 - [place] Office Visit 07/05/2011 1:40p [facility] Internal Medicine Tarsha Underwood M.D. 58107 783.1 - [place] Office Visit 06/23/2011 8:40a [facility] Internal Medicine Tarsha Underwood M.D. 34670 715.11 - [place] Office Visit 06/09/2011 11:00a [facility] Internal Medicine Tarsha Underwood M.D. 54264 296.31 - [place] 719.41 Office Visit 05/10/2011 9:20a DO Not Use [facility]-Ayla Underwood M.D. 36653 296.31 Office Visit 04/26/2011 9:40a DO Not Use [facility]-Ayla Underwood M.D. 16657 296.31 Office Visit 04/12/2011 9:40a DO Not Use [facility]-Ayla Underwood M.D. 43325 281.9 V45.86 733.6 790.6 V02.61 Office Visit 03/29/2011 1:40p DO Not Use [facility]-Ayla Underwood M.D. 90505 281.9 807.00 296.31 Plan of Care Future Appointment(s):08/14/2017 11:00 am - Lui Samson M.D. at [facility] Internal Medicine - [address]07/17/2017 - Lui Samson M.D.J45.909 Unspecified asthma, uncomplicatedNew Medication:Dulera 200-5 mcg/ActMontelukast Sodium 10 mgFollow up:1 xgwwmX35.00 Insomnia, unspecifiedNew Medication: Zolpidem Tartrate 5 mgK21.9 Gastro-esophageal reflux disease without esophagitisComments:Avoid caffeine and spicy foods. Take acid pill in empty stomach 30 minuets before breakfast. Have your dinner at least 2-3 hours before you go to sleep. Should keep head end of the bed elevated. Any time if you find black stools should call me. Should also avoid medications like ibuprofen, Motrin or Aleve.
[2017-08-09] MEDS ORDERED: Famotidine IV* 10 MG/ML 2 ML (20 mg) IV ONE (19:59)
[2017-08-09] MEDS ORDERED: Ondansetron INJ* 2 MG/ML VIAL IV ONE (19:59)
[2017-08-09] MEDS ORDERED: DICYCLOMINE HCL* 20 MG/2 ML VIAL IM ONE (20:02)
[2017-08-09 20:56] LABS: ABS Basophils 0 10^3/ul (0-0.2); ABS Eosinophils 0.1 10^3/ul (0-0.6); ABS Lymphocytes 0.6 10^3/ul (1.0-4.8); ABS Monocytes 0.4 10^3/ul (0-0.8); ABS Nucleated RBC 0 10^3/ul; Eosinophil % 2.2 % (0-6); Hematocrit 41 % (35-47); Lymphocyte % 11.5 % (25-47); Mean Corpuscular HGB Conc 34 g/dl (31-36); Mean Corpuscular Hemoglobin 32 pg (27-31); Mean Corpuscular Volume 93 fL (80-97); Nucleated Red Blood Cells % 0.1; Platelet Count 165 10^3/ul (150-450); Red Blood Count 4.43 10^6/ul (4.0-5.4); Red Cell Distribution Width 14 % (10.5-15); White Blood Count 5.2 10^3/ul (3.5-10.8)
[2017-08-09] MEDS: NS 0.9% 1000 ML* 2,000 ML IV ONE (20:58)
[2017-08-09 21:15] LABS: EGFR Non-African American 74.2 (>60)
[2017-08-09] MEDS ORDERED: Morphine INJ* 4 MG/ML 1 ML SYRINGE (NEW SYRINGE VERSION) IV ONE ×2 (21:27→21:59)
[2017-08-09 23:16] LABS: Urine Appearance Clear; Urine Blood 2+ (Negative); Urine Color Colorless; Urine Ketones Negative (Negative); Urine Protein Negative (Negative); Urine Specific Gravity 1.004 (1.010-1.030); Urine Urobilinogen Negative (Negative)
[2017-08-09] MEDS ORDERED: Al Hydrox/Mg Hydrox/Simet LIQ* 30 ML UDC PO ONE (23:17)
[2017-08-09] MEDS ORDERED: Lidocaine 2% VISCOUS* 15 ML UDC PO ONE (23:17)
[2017-08-09] MEDS ORDERED: diPHENhydraMINE IV* 50 MG/ML 1 ml VIAL (BENADRYL) IV ONE (23:36)
[2017-08-09] MEDS ORDERED: methylPREDNISolone 125 MG* 2 ML VIAL IV ONE (23:36)
[2017-08-10 03:43] VITALS: BP 106/66
--- NOTE | 2017-08-10 17:24 | ED ---
Ned Maharaj Stephanie, scribed for Maco Nettles MD on 08/09/17 at 2006 . Abdominal Pain/Female - HPI Summary HPI Summary: The pt is a 57 y/o F presenting to the ED with c/o upper abd pain since yesterday. Symptoms include back pain, diarrhea, decreased oral intake and PHILLIPS. She denies recent consumption of unusual foods. The pt states she is currently undergoing stress due to family complications and has experienced symptoms of CP and nausea. The pt states she began feeling nauseated a few weeks ago since taking Singulair. She reveals recent exposure to influenza A. - History of Current Complaint Chief Complaint: EDNauseaVomitDiarrh Stated Complaint: ABD AND BACK PAIN/DIARRHEA Time Seen by Provider: 08/09/17 19:45 Hx Obtained From: Patient Hx Last Menstrual Period: age 50 Onset/Duration: Gradual Onset, Lasting Days - 1, Still Present Timing: Constant Severity Currently: Moderate Pain Intensity: 8 Pain Scale Used: 0-10 Numeric Location: Discrete At: RUQ, Discrete At: LUQ Radiates: Yes Radiates to: Back Aggravating Factor(s): Nothing Alleviating Factor(s): Nothing Associated Signs and Symptoms: Positive: Chest Pain, Back Pain, Nausea, Diarrhea , Other: - PHILLIPS, decreased oral intake Allergies/Adverse Reactions: Allergies Allergy/AdvReac Type Severity Reaction Status Date / Time acetaminophen [From Percocet] Allergy Unknown Verified 08/10/17 00:02 Reaction Details Adhesive Tape Allergy Rash Verified 05/20/17 16:50 cephalexin [From Keflex] Allergy Unknown Verified 08/10/17 00:02 Reaction Details hydromorphone Allergy Unknown Verified 08/10/17 00:02 Reaction Details ketorolac Allergy Unknown Verified 08/10/17 00:02 Reaction Details morphine Allergy Abdominal Verified 08/10/17 00:02 Pain oxycodone [From Percocet] Allergy Unknown Verified 08/10/17 00:02 Reaction Details Penicillins Allergy Unknown Verified 08/10/17 00:02 Reaction Details Sulfa (Sulfonamide Allergy Unknown Verified 08/10/17 00:02 Antibiotics) Reaction Details tigecycline [From Tygacil] Allergy Unknown Verified 08/10/17 00:02 Reaction Details PMH/Surg Hx/FS Hx/Imm Hx Endocrine/Hematology History: Reports: Hx Anemia Denies: Hx Anticoagulant Therapy, Hx Diabetes, Hx Systemic Lupus Erythematosus, Hx Thyroid Disease Cardiovascular History: Denies: Hx Hypertension, Hx Pacemaker/ICD Respiratory History: Reports: Hx Asthma Denies: Hx Chronic Obstructive Pulmonary Disease (COPD) GI History: Reports: Hx Gastroesophageal Reflux Disease - REPAIRED IN 2010- WITH REVISION OF LAP BANDING, Hx Hiatal Hernia - REPAIRED IN 2010- WITH REVISION OF LAP BANDING Denies: Hx Ulcer History: Denies: Hx Dialysis, Hx Renal Disease Musculoskeletal History: Reports: Hx Arthritis - BACK, LEFT SHOULDER Sensory History: Reports: Hx Contacts or Glasses Denies: Hx Hearing Aid Opthamlomology History: Reports: Hx Contacts or Glasses Neurological History: Reports: Hx Headaches, Hx Migraine - OCCASION- TREATS WITH REST AND TYLENOL, Other Neuro Impairments/Disorders - 3 S[facility] Denies: Hx Dementia, Hx Seizures Psychiatric History: Reports: Hx Anxiety - ON MEDICATION FOR, Hx Depression, Hx Panic Disorder Denies: Hx Substance Abuse - Surgical History Surgery Procedure, Year, and Place: LUMBAR SURGERY X 3 - 2011;. GALLBLADDER REMOVED ;. TONSILECTOMY ;. TUBAL LIGATION ;. LAPBAND 2007 AND REVISION 2010; . POLYPS/CYSTS REMOVED FRON UTERUS & CERVIX ;. ANAL FISSURE;. PINKY FINGER RIGHT CUT TENDON/REPAIR ; Hx Anesthesia Reactions: Yes - RESPIRATIONS VERY LOW- WITH SURGERIES- - Immunization History Date of Tetanus Vaccine: unknown Infectious Disease History: No Infectious Disease History: Denies: Hx Clostridium Difficile, Hx Hepatitis, Hx Human Immunodeficiency Virus (HIV), Hx of Known/Suspected MRSA, Hx Shingles, Hx Tuberculosis, Hx Known/ Suspected VRE, Hx Known/Suspected VRSA, History Other Infectious Disease, Traveled Outside the [place] in Last 30 Days - Family History Known Family History: Positive: Other - mother and sister have gout Negative: Diabetes Family History: negative for DM2 - Social History Occupation: Disabled Lives: With Family Alcohol Use: Rare Hx Substance Use: No Substance Use Type: Reports: None Hx Tobacco Use: No Smoking Status (MU): Never Smoked Tobacco Review of Systems Positive: Other - decreased oral intake. Negative: Fever Positive: Chest Pain Positive: Abdominal Pain, Diarrhea, Nausea Positive: Other - back pain Positive: Headache All Other Systems Reviewed And Are Negative: Yes Physical Exam - Summary Physical Exam Summary: Appearance: Well-appearing, no distress, Well-nourished Skin: Warm, color reflects adequate perfusion Head: Normal Head/Face inspection Eyes: Conjunctiva clear ENT: Mildly dry mucus membranes Neck: Supple, no nodes, no JVD. Respiratory: Lungs clear, Normal breath sounds, no respiratory distress Cardio: RRR, No murmur, pulses normal, brisk capillary refill Abdomen: soft, mild diffuse abd tenderness, no guarding, no rebound Bowel sounds: present Musculoskeletal: Strength Intact/ ROM intact. No calf tenderness. No edema. Neuro: Alert, muscle tone normal, facial symmetry, speech normal, sensory/motor intact Psychological: Normal Triage Information Reviewed: Yes Vital Signs On Initial Exam: Initial Vitals Temp Pulse Resp BP Pulse Ox 97.1 F 82 20 103/65 95 08/09/17 18:46 08/09/17 18:46 08/09/17 18:46 08/09/17 18:46 08/09/17 18:46 Vital Signs Reviewed: Yes Diagnostics - Vital Signs Vital Signs Temp Pulse Resp BP Pulse Ox 08/09/17 18:46 97.1 F 82 20 103/65 95 - Laboratory Lab Results: Lab Results 08/09/17 08/09/17 Range/Units 20:45 20:45 WBC 5.2 (3.5-10.8) 10^3/ul RBC 4.43 (4.0-5.4) 10^6/ul Hgb 14.0 (12.0-16.0) g/dl Hct 41 (35-47) % MCV 93 (80-97) fL MCH 32 H (27-31) pg MCHC 34 (31-36) g/dl RDW 14 (10.5-15) % Plt Count 165 (150-450) 10^3/ul MPV 9.0 (7.4-10.4) um3 Neut % (Auto) 78.1 (38-83) % Lymph % (Auto) 11.5 L (25-47) % Yell % (Auto) 7.2 H (0-7) % Eos % (Auto) 2.2 (0-6) % Baso % (Auto) 1.0 (0-2) % Absolute Neuts (auto) 4.0 (1.5-7.7) 10^3/ul Absolute Lymphs (auto) 0.6 L (1.0-4.8) 10^3/ul Absolute Monos (auto) 0.4 (0-0.8) 10^3/ul Absolute Eos (auto) 0.1 (0-0.6) 10^3/ul Absolute Basos (auto) 0 (0-0.2) 10^3/ul Absolute Nucleated RBC 0 10^3/ul Nucleated RBC % 0.1 Sodium 136 (133-145) mmol/L Potassium 3.5 (3.5-5.0) mmol/L Chloride 103 (101-111) mmol/L Carbon Dioxide 26 (22-32) mmol/L Anion Gap 7 (2-11) mmol/L BUN 21 (6-24) mg/dL Creatinine 0.80 (0.51-0.95) mg/dL Est GFR ( Amer) 95.4 (>60) Est GFR (Non-Af Amer) 74.2 (>60) BUN/Creatinine Ratio 26.3 H (8-20) Glucose 86 (70-100) mg/dL Calcium 8.9 (8.6-10.3) mg/dL Total Bilirubin 0.50 (0.2-1.0) mg/dL AST 17 (13-39) U/L ALT 16 (7-52) U/L Alkaline Phosphatase 69 (34-104) U/L Total Protein 6.9 (6.4-8.9) g/dL Albumin 4.0 (3.2-5.2) g/dL Globulin 2.9 (2-4) g/dL Albumin/Globulin Ratio 1.4 (1-3) Lipase 23 (11.0-82.0) U/L Result Diagrams: 08/09/17 20:45 08/09/17 20:45 Lab Statement: Any lab studies that have been ordered have been reviewed, and results considered in the medical decision making process. Re-Evaluation - Re-Evaluation First Eval Re-Evaluation Time: 21:28 Change: Improved Comment: Pt states abdominal pain improved with resolution of nausea. Pt now complaining of exacerbation of her chronic back pain. Plan for dose IV analgesia. Will reevaluate and continue to monitor. Second Eval Re-Evaluation Time: 22:53 Change: Improved Comment: Pt resting comfortably in bed. pt tolerating po without difficulty. pt abdominal pain improved. will continue IVF. Will continue to monitor. Third Eval Re-Evaluation Time: 00:05 Change: Worse Comment: Pt complaining of epigastric cramping after IV Morphine given. Likely side effect, however pt does have Morphine allergy listed. Plan to give IV benadryl, solumedrol, and GI coctail. Fourth Eval Re-Evaluation Time: 03:17 Change: Improved Comment: Pt symptomatically improved. pt abdominal pain resolved. pt tolerating po without difficulty. Abdominal Pain Fem Course/Dx - Diagnoses Differential Diagnosis: Positive: Appendicitis, Bowel Obstruction, Constipation , Diverticulitis, Irritable Bowel Syndrome, Pancreatitis, Urinary Tract Infection Provider Diagnoses: Colitis Discharge - Sign-Out/Discharge Documenting (check all that apply): Discharge - Discharge Plan Condition: Improved Disposition: HOME Prescriptions: Dicyclomine CAP* [Bentyl CAP*] 10 mg PO TID PRN #10 cap PRN Reason: Pain Ondansetron ODT TAB* [Zofran 4 MG Odt TAB*] 4 mg PO Q8H PRN #8 tab.odt PRN Reason: Nausea predniSONE TAB* [Deltasone TAB*] 40 mg PO DAILY 3 Days #6 tab Patient Education Materials: Colitis (ED) Referrals: Lui Samson MD [Primary Care Provider] - 2 Days - Billing Disposition and Condition Condition: IMPROVED Disposition: HOME The documentation as recorded by the Ned borja Stephanie accurately reflects the service I personally performed and the decisions made by , Maco Nettles MD.
== END 2017-08-10 03:43 | disposition home or self-care (01) ==
LOC: ED 18:43
DX: K52.9 Noninfective gastroenteritis and colitis, unspecified (principal); R07.9 Chest pain, unspecified; M54.9 Dorsalgia, unspecified; R11.0 Nausea; R19.7 Diarrhea, unspecified; R10.9 Unspecified abdominal pain; Z87.19 Personal history of other diseases of the digestive system
CPT/HCPCS: 36415; 80053; 81003; 81015; 83690; 85025; 87086; 99284; A9270-GY; J0500; J1200; J2270; J2405; J2930

== ENCOUNTER 2017-10-07 20:46 | Emergency (ER) | payer OTHER ==
[2017-10-07 21:02] VITALS: BP 122/83
--- NOTE | 2017-10-07 21:29 | UC ---
Minor Trauma HPI - HPI Summary HPI Summary: PATIENT FELL ON UNEVEN SIDEWALK 3 DAYS AGO. WAS SEEN AT [facility] THAT DAY AND HAD NEGATIVE IMAGING OF LOW BACK, RIGHT HIP AND RIGHT ANKLE. SHE COMES IN TODAY STATING THAT SHE HAS PAIN IN HER WHOLE BODY THAT IS GETTING PROGRESSIVELY WORSE. HER LEFT SHOULDER AND NECK ARE SPECIFICALLY INVOLVED. PATIENT STATES THAT TORADOL INJECTION WAS NOT HELPFUL. TYLENOL AND IBUPROFEN NOT HELPFUL EITHER. - History of Current Complaint Chief Complaint: UCLowerExtremity Stated Complaint: FELL HIP AND SHOULDER PAIN Time Seen by Provider: 10/07/17 21:19 Hx Obtained From: Patient Hx Last Menstrual Period: age 50 Onset/Duration: Sudden Onset, Lasting Days, Still Present Onset Of Pain: Immediate Severity Initially: Moderate Severity Currently: Severe Pain Intensity: 9 Pain Scale Used: 0-10 Numeric Mechanism Of Injury: Fall From A Standing Position Aggravating Factor(s): Movement Alleviating Factor(s): Nothing Associated Signs And Symptoms: Negative: Loss Of Consciousness, Ecchymosis, Swelling - Allergies/Home Medications Allergies/Adverse Reactions: Allergies Allergy/AdvReac Type Severity Reaction Status Date / Time Adhesive Tape Allergy Rash Verified 10/07/17 21:04 cephalexin [From Keflex] Allergy Unknown Verified 10/07/17 21:04 Reaction Details hydromorphone Allergy Unknown Verified 10/07/17 21:04 Reaction Details ketorolac Allergy Unknown Verified 10/07/17 21:04 Reaction Details morphine Allergy Abdominal Verified 10/07/17 21:04 Pain oxycodone [From Percocet] Allergy Unknown Verified 10/07/17 21:04 Reaction Details Penicillins Allergy Unknown Verified 10/07/17 21:04 Reaction Details Sulfa (Sulfonamide Allergy Unknown Verified 10/07/17 21:04 Antibiotics) Reaction Details tigecycline [From Tygacil] Allergy Unknown Verified 10/07/17 21:04 Reaction Details Home Medications: Home Medications Acetaminophen [Mapap] 500 mg PO ONCE PRN 10/07/17 [History Confirmed 10/07/17] Beet Root* PO DAILY 10/07/17 [History] Famotidine TAB* [Pepcid 20 MG TAB*] 20 mg PO QPM 10/07/17 [History Confirmed ] Omeprazole CAP* [Prilosec CAP* 20 MG] 20 mg PO QAM 10/07/17 [History Confirmed 10/07/17] Pedi Multivit No.25/Folic Acid [Flintstones Multivit Chew Tab] 1 chw PO DAILY [History Confirmed 10/07/17] PMH/Surg Hx/FS Hx/Imm Hx Neurological History: TIA Psychological History: Depression Other History Of: Negative For: Anticoagulant Therapy - Surgical History Surgical History: Yes Surgery Procedure, Year, and Place: LUMBAR SURGERY X 3 - 2011;. GALLBLADDER REMOVED ;. TONSILECTOMY ;. TUBAL LIGATION ;. LAPBAND 2007 AND REVISION 2010; . POLYPS/CYSTS REMOVED FRON UTERUS & CERVIX ;. ANAL FISSURE;. PINKY FINGER RIGHT CUT TENDON/REPAIR ;. MASS ON OUTSIDE OF CERVIX REMOVED 04/17/17 - Family History Known Family History: Positive: Other - mother and sister have gout Negative: Diabetes Family History: negative for DM2 - Social History Alcohol Use: None Substance Use Type: None Smoking Status (MU): Never Smoked Tobacco Review of Systems Constitutional: Negative Skin: Negative Respiratory: Negative Cardiovascular: Negative Gastrointestinal: Negative Musculoskeletal: Arthralgia, Decreased ROM, Myalgia All Other Systems Reviewed And Are Negative: Yes Physical Exam Triage Information Reviewed: Yes Appearance: Well-Nourished, Pain Distress - MOD Vital Signs: Initial Vital Signs Temp 97.1 F 10/07/17 20:54 Pulse 81 10/07/17 20:54 Resp 20 10/07/17 20:54 BP 122/83 10/07/17 20:54 Pulse Ox 100 10/07/17 20:54 Vital Signs Reviewed: Yes Eyes: Positive: Conjunctiva Clear ENT: Positive: Hearing grossly normal Neck: Positive: Supple Respiratory: Positive: No respiratory distress, No accessory muscle use Cardiovascular: Positive: Pulses Normal Musculoskeletal: Positive: No Edema, ROM Limited @ - PATIENT MOVING VERY GINGERLY. DECREASED RANGE OF MOTION IN LEFT SHOULDER, NECK AND RIGHT LOWER EXTREMITY., Other: - MILDLY TENDER MUSCULATURE OF POSTERIOR NECK. Neurological: Positive: Alert Psychological: Positive: Age Appropriate Behavior Skin: Negative: rashes Diagnostics - Radiology LEFT SHOULDER/C-SPINE XRAYS Xray Interpretation: No Acute Changes Radiology Interpretation Completed By: ED Physician Minor Trauma Course/Dx - Differential Dx/Diagnosis Provider Diagnoses: 1. CERVICAL STRAIN. 2. LEFT SHOULDER STRAIN Discharge - Sign-Out/Discharge Documenting (check all that apply): Discharge/Admit/Transfer - Discharge Plan Condition: Stable Disposition: HOME Prescriptions: Cyclobenzaprine TAB* [Flexeril TAB*] 10 mg PO BID PRN #15 tab PRN Reason: Pain HYDROcodone/ACETAMIN 5-325 MG* [[place] 5-325 TAB*] 1 tab PO Q6H PRN #12 tab MDD 4 PRN Reason: Pain Patient Education Materials: Cervical Strain (ED), Shoulder Sprain (ED) Referrals: Lui Samson MD [Primary Care Provider] - 2 Days Additional Instructions: X-RAYS OF CERVICAL SPINE AND LEFT SHOULDER UNREMARKABLE TODAY ON MY INITIAL INTERPRETATION. WE WILL CALL YOU TOMORROW IF THE RADIOLOGY READ DIFFERS. REST , STRETCH AND GO THROUGH SLOW RANGE OF MOTION EXERCISES DAILY. HYDROCODONE/ APAP AND FLEXERIL NEEDED FOR DISCOMFORT. FOLLOW-UP WITH PCP IN THE NEXT COUPLE OF DAYS FOR REEVALUATION. GO TO THE ED WITHOUT FAIL IF YOUR PAIN WORSENS OR IF YOU DEVELOP NUMBNESS/TINGLING OR ANY OTHER CONCERNING SYMPTOMS. - Billing Disposition and Condition Condition: STABLE Disposition: HOME
--- NOTE | 2017-10-08 07:40 | RAD ---
INDICATION: Fall. Neck pain COMPARISON: None TECHNIQUE: Routine five-view imaging was performed FINDINGS: Bones: There are no acute bony findings. There are arthritic findings consisting of marginal osteophyte formation and facet arthropathy from C4 through C6. Craniocervical junction: The odontoid and atlantodental interval are normal. Alignment: Normal Disc spaces: The disc spaces are well-maintained Soft tissues: The prevertebral soft tissues are normal. IMPRESSION: MODERATE MIDCERVICAL OSTEOARTHRITIS. NO ACUTE FINDINGS
--- NOTE | 2017-10-08 07:42 | RAD ---
INDICATION: Left shoulder pain COMPARISON: None TECHNIQUE: Routine frontal, Y and axial views were obtained. FINDINGS: There is no acute bony change. There is mild AC joint osteoarthritis. There is minor lipping of the inferior glenoid. No additional findings. IMPRESSION: MINOR OSTEOARTHRITIS
== END 2017-10-07 22:31 | disposition home or self-care (01) ==
LOC: UCEAST 20:46
DX: S16.1XXA Strain of muscle, fascia and tendon at neck level, initial encounter (principal); S46.912A Strain of unspecified muscle, fascia and tendon at shoulder and upper arm level, left arm, initial encounter; W18.30XA Fall on same level, unspecified, initial encounter; Y93.01 Activity, walking, marching and hiking; Y92.480 Sidewalk as the place of occurrence of the external cause; M19.012 Primary osteoarthritis, left shoulder; M47.812 Spondylosis without myelopathy or radiculopathy, cervical region; Z86.73 Personal history of transient ischemic attack (TIA), and cerebral infarction without residual deficits; F32.9 Major depressive disorder, single episode, unspecified; Z88.1 Allergy status to other antibiotic agents; Z88.5 Allergy status to narcotic agent; Z88.0 Allergy status to penicillin; Z88.2 Allergy status to sulfonamides; Z88.8 Allergy status to other drugs, medicaments and biological substances; Z91.048 Other nonmedicinal substance allergy status
CPT/HCPCS: 72050; 99213; G0463

== ENCOUNTER 2017-11-06 15:22 | Observation (INO) | payer OTHER ==
--- OUTSIDE RECORDS SUMMARY | 2017-11-06 15:59 | XMS REPORT ---
:1960 External Reference #:[id number] Author Organization [facility] Address [address] [place] [address] [place] [address] Phone [phone] Care Team Providers Name Role Phone Lui Samson MD Primary Care Physician Unavailable Payers Type Date Identification Numbers Payment Provider Subscriber Commercial Policy Number: [id number] Agustín Coates Group Number: [id number] [address] PayID: [id number] [place] [address] Commercial Effective: Policy Number: Dennis/[employer] Keena Coates 2012 [id number] Medicaid Expires: 2012 PayID: [id number] [address] [address] [place] [address] Commercial Expires: 2012 Policy Number: [id number] Agustín Coates Group Name: CHAS# [id number] [address] PayID: [id number] [place] [address] Problems Date Description Provider Status Onset: 04/12/2011 Bariatric Surgery Status Tarsha Underwood M.D. Active Onset: 06/09/2011 Mild recurrent major depression Tarsha Underwood M.D. Active Onset: 01/08/2012 Asthma without status asthmaticus Tarsha Underwood M.D. Active Onset: 06/24/2014 Low back pain Kevin Cottrell M.D. Active Onset: 09/05/2016 Gastroesophageal reflux disease Lui Samson M.D. Active Onset: 10/17/2016 Mixed hyperlipidemia Lui Samson M.D. Active Onset: 01/30/2017 Essential hypertension Lui Samson M.D. Active Onset: 01/30/2017 Obesity Lui Samson M.D. Active Onset: 02/13/2017 Migraine without aura, not Morenita Salinas MD Active refractory Onset: 07/17/2017 Insomnia Lui Samson M.D. 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 before breakfast Fexofenadine HCL 08/01 Active Tablets 180mg 30tab once daily s Karol Samson Zolpidem 07/17 Active Tablets 5mg 30tab 1 tab G47.00 Lui Tartrate s daily at [place], bedtime M.Shahnaz Dulera 07/17 Active Aerosol 200-5mcg/ 8.800 2 puff J45.909 Act gm twice a Meraryika, day M.D. Famotidine 01/30 Active Tablets 40mg 30tab 1 by mouth K21.9 s every day Meraryika, 1 hour M.D. after dinner Ventolin HFA 01/30 Active Aerosol 108(90Bas 8gm 2 puffs by J45.909 e) mouth four Pachikara, mcg/Act times a M.D. day as needed Wrist Splint 07/05 Active Misc 1unit wear daily M79.642 Darin s remove to Frisian, [employer] shower x2 weeks Cane/Aluminum/Ad 08/16 Active Misc 1unit diagnosis: M51.16 Lui justable/Bronze /2015 s lumbar Thuan Samson/Standard disc M.DDoug Handle disease Jobst Trouser 01/07 Active Misc 1Pair 1 pair prn 782.3 Eusebio 8-15MMHG/Knee /2011 to lower Flores, [employer]OR High/Women/Mediu legs m Citalopram Active Tablets 20mg 30tab 1 every Hydrobromide / s day Karol Samson Tylenol PM Extra Active Tablets 500-25mg 1 tab by Unknown Strength /0000 mouth every 6 hours as needed Aspirin Adult Active Tablets DR 81mg 1 by mouth Unknown Low Dose /0000 every day Beet Root Active one tab Unknown /0000 daily Oxycodone HCL Active Tablets 5mg 1-2 tabs Unknown /0000 by mouth every 4-6 hours as needed Montelukast 07/17 Hx Tablets 10mg 30tab once daily J45.909 Lui Josh Grande M.D. 08/01 Levofloxacin 03/27 Hx Tablets 500mg 10tab once daily J06.9 Lui Josh Grande M.D. 04/10 Rizatriptan 02/13 Hx Tablets 5mg 9tabs 1 at onset G43.009 Morenita Benzoate /2016 Dispers of MD Brad - migraine. 04/10 in 2 hours if needed. do not use more than 2x/week Zolpidem 02/05 Hx Tablets 5mg 30tab 1 tab G47.00 Manzanita Tartrate s daily at [facility], - bedtime M.D. 07/17 Zolpidem 01/30 Hx Tablets 10mg 30tab 1/2 to 1 G47.00 Lui Tartrate s tab by Mali, - mouth M.D. 02/05 night at bedtime as needed Prednisone 11/29 Hx Tablets 50mg 3tabs take 1 tab Morenita by mouth MD Brad - 13 hours, 02/12 7hrs and hour before ct Diphenhydramine 11/29 Hx Capsules 50mg 1caps 1 by mouth Morenita HCL 1 hour MD Brad - before 02/12 contrast Potassium 10/17 Hx Tablets 75mg 30tab 1 by mouth s every day Josh Hollingsworth M.D.,[facility] 10/19 Klor-Con 10 10/13 Hx Tablets ER 10Meq 30tab 1 by mouth s every day Josh Hollingsworth M.D.,[facility] 02/12 Diclofenac 09/05 Hx Gel 1% 100gm apply 2 M77.11 Lui Sodium times Meraryika, - daily M.D. 10/19 Meloxicam 09/05 Hx Tablets 15mg 30tab once daily M77.11 s with food Meraryika, - M.D. 10/19 Ibuprofen 07/05 Hx Tablets 400mg 90tab 1 tab by M79.642 Darin s mouth MICHAELLE Luna - every 6- 8 three times a day as needed: take w/ food Clarithromycin 06/30 Hx Tablets 500mg 14tab 1 by mouth Alfredo s twice a Shahnaz Trevizo, - day for 7 M.D.,FACP Cheratussin ac 06/30 Hx Syrup 100-10mg/ 236ml 5ML milliliter Shahnaz Trevizo, - s by mouth Karol,FACP 10/13 four times a day as needed Pantoprazole 01/[address] 20mg 60tab 1 tab K21.9 Lui Sodium s twice a Pachikara, - day M.D. 02/12 Rizatriptan 01/10 Hx Tablets 10mg 12tab use at G43.019 Manzanita Benzoate s onset of Pachikara, - headache M.D. 10/13 after 2 h as needed Metoprolol 01/10 Hx Tablets 25mg 60tab 1 by mouth G43.019 Manzanita Tartrate s twice a Pachikara, - day M.D. 07/02 Sumatriptan 12/31 Hx Tablets 25mg 9tabs 1 tab Other Succinate Q8hrs prn Ordering - migraine Provider 01/10 Macrobid 12/31 Hx Capsules 100mg 9caps 1 tab by Other mouth Ordering - twice a Provider 01/05 day x days Hydrocortisone 12/31 Hx Ointment 0.2% 15gm apply to Other Valerate rash bid x Ordering - 2 weeks [...] Hx Tablets 5-325mg 45tab 1 tab M51.16 aminophen s every 8h Pachikara, - as needed M.D. 10/13 Levofloxacin 04/08 Hx Tablets 500mg 7tabs 1 tablt by J06.9 mouth Brody, - every day M.D. 06/04 Levofloxacin 12/25 Hx Tablets 500mg 5tabs 1 tablt by J06.9 mouth Brody, - every day M.D. 03/02 Pantoprazole 09/[address] 40mg 30tab 1 by mouth K21.9 Lacides Sodium s every day Brody, - M.D. 01/10 Naproxen 08/25 Hx Tablets 500mg 30tab 1 tablet M54.89 s by mouth Brody, - twice a M.D. 08/16 day with foods as needed pain Cyclobenzaprine 08/25 Hx Tablets 10mg 90tab one by M54.89 Manzanita HCL s mouth Pachikara, - three M.D. 10/19 times day as needed spasm Asmanex 06/09 Hx Aerosol 220mcg/In 1unit 1 puff po J45.20 Darin Livingston 120 h s bid Jeremy [employer] Metered Doses - 11/10 Lasix 05/12 Hx Tablets 20mg 5tabs 1 tablet po daily Brody, - in am M.D. 08/20 Cyclobenzaprine 04/24 Hx Tablets 10mg 60tab one by 722.93 Alcides s mouth Brody, - three M.D. 08/26 times day as needed spasm Ibuprofen 03/31 Hx Tablets 800mg 60tab by mouth 719.42 s three Brody, - times a M.D. 08/16 day as needed Mucinex 03/03 Hx Tablets ER 600mg 60tab 1 tab by 465.8 Eusebio 12HR s mouth q12 Flores, [employer] - hours 06/09 Omeprazole 01/[address] 20mg 30cap 1 by mouth 530.81 Johana s every day Varn, N.P. - 09/08 Naproxen 09/12 Hx Tablets 375mg 60tab take 1 719.42 Tarsha s tablet Underwood, - twice M.D. 03/31 daily for pain control Ranitidine HCL 04/15 Hx Capsules 150mg 60cap one 535.00 Johana s capsule Varn, N.P. - every 12 Iron 06/27 Hx Tablets 325(65Fe) 90tab 1 po qd mg s Kj, - M.D. 06/27 Proair HFA 06/27 Hx Aerosol 108(90Bas 1unit 2 puffs by Darin e) s mouth Frisian, [employer] - mcg/Act every 4 10/19 hours needed Cyclobenzaprine 06/27 Hx Tablets 5mg 60tab Take 1-2 722.93 Tarsha HCL s tablets at Underwood, - night for M.D. 04/24 back pain Gabapentin 06/27 Hx Capsules 100mg 90cap take 1 M54.89 s tablet Brody, - three to M.D. 08/16 four times daily for pain Cyclobenzaprine 03/21 Hx Tablets 5mg 60tab Take 1-2 722.93 HCL s tablet Kj, - three M.D. 06/27 daily for back pain Gabapentin 03/21 Hx Capsules 300mg 30cap Take 1-2 724.5 s tablets at [place], - night M.D. 06/27 Percocet 12/10 Hx Tablets 5-325mg 30tab 1 po qhs 724.5 s prn pain Kj, - M.D. 06/27 Carafate 08/30 Hx Suspension 1GM/10ML 420ml take 2 530.12 teaspoonfu Kj, - ls by MGale 09/16 mouth times a day before meals and at bedtime Calcium 08/05 Hx Chewtabs 260mg 30uni take 1-2 530.12 Carbonate ts tablets Kj, - every 4-6 M.D. 08/30 hours needed for heartburn Carafate 08/05 Hx Suspension 1GM/10ML 420ml take 2 530.12 teaspoonfu Kj, - ls by Karol 08/30 mouth times a day before meals and at bedtime Acetaminophen 04/24 Hx Capsules 500mg 100ca take 2 ps tablets Kj, - three M.D. 12/10 times daily as needed Oxycodone HCL 03/15 Hx Capsules 5mg 28cap 1-2 722.93 Tarsha s capsules Kj, - at night M.D. [...] puffs po e) mcg/ac s q4h prn Kj, - M.D. 06/27 Ibuprofen 10/31 Hx Tablets 800mg 60tab take 1 s tablet Kj, - three M.D. 04/24 times daily with food for 20 days. Cyclobenzaprine 10/12 Hx Tablets 5mg 60tab Take 1-2 722.93 Tarsha HCL s tablet Kj, - three M.D. 02/03 times daily for back pain Tramadol HCL 10/12 Hx Tablets 50mg 60tab take 1-2 722.93 Tarsha s tablets by Kj, - mouth M.D. 08/30 every hours as needed Hydrocodone/Acet 07/11 Hx Tablets 5-325mg 30tab 1 tablet 724.5 Milagros aminophen /2011 s every 4 - Patrick, - 6 hours as M.D. 09/12 needed for pain Cyclobenzaprine 07/11 Hx Tablets 5mg 30tab 1 by mouth 724.5 Milagros HCL /2011 s at bedtime Patrick, - as needed M.D. 09/12 for back pain Medrol Dosepak 07/11 Hx Tablets 4mg 1pak as 724.5 Milagros /2011 directed Patrick, - M.D. 09/12 Citalopram 06/09 Hx Tablets 20mg 30tab 1 po qd 296.31 Tarsha Hydrobromide s Josh Underwood MDougDDoug 09/02 Citalopram 05/10 Hx Tablets 10mg 30tab take 2 296.31 Tarsha Hydrobromide s tablet Kj, - daily. M.D. 07/05 Lexapro 04/26 Hx Tablets 10mg 60tab 1 tablet 296.31 s daily for Kj, - 1 week, M.D. 05/10 then tablets daily Ibuprofen 04/12 Hx Tablets 600mg 21tab 1 tablet 733.6 s three Kj, - times M.D. 05/10 daily food x 7 days Vitamin D-1000 04/12 Hx Tablets 1000Unit 90tab 1 po qd V45.86 s Josh UnderwoodDDoug 09/12 Multivitamins 04/12 Hx Tablets 90tab 1 po qd V45.86 Tarsha s Josh Underwood M.DDoug 05/10 Calcium Citrate 04/12 Hx Tablets 950mg 180ta Take 2 V45.86 bs tablets Kj, - twice M.D. 09/12 Iron Supplement 03/29 Hx Tablets 375mg po qd Josh Underwood M.DDoug 04/12 Iron 03/29 Hx Tablets 325(65Fe) 60tab 1 tablet 281.9 mg s by mouth Kj, - twice M.D. 04/26 Ambien Hx Tablets 5mg 30tab 1 po Unknown /0000 s tablet at - bedtime 01/07 pr Trazodone HCL Hx Tablets 50mg 30tab take 1/2 Unknown /0000 s tablet at - bedtime, 09/12 1 time Vicodin Hx Tablets 5-500mg 30tab 1-2 by Unknown /0000 s mouth - every 4-6 needed for pain Prilosec Hx Capsules DR 20mg 30cap 1 po qd Unknown /0000 s - 09/12 Vitamin C Hi Hx Capsules ER 500mg 2 po qd Unknown Potency /0000 - 08/05 Vitamin B-12 TR 00/00 Hx Tablets ER 1000mcg 1 po qd [...] by Unknown /0000 s mouth - every to 03/03 6 hours needed pain Iron Hx Tablets 325(65Fe) 1 by mouth Unknown /0000 mg every day - 06/24 B-12 Hx Tablets Sub 500mcg 2 by mouth Unknown Microlozenge /0000 every day - 04/08 Biotin Hx Tablets 1000mcg Is Not Unknown /0000 USINGonce - a day 10/13 Vitamin E Hx Capsules 100Unit Is Not Unknown /0000 USINGonce - a day 10/13 Vitamin Hx Tablets 1 by mouth Unknown B-Complex /0000 every day - 10/13 Ranitidine HCL 00 Hx Tablets 75mg 1 daily in Unknown /0000 the - morning 03/27 Immunizations CPT Code Status Date Vaccine Lot # [id number] Given 09/28/2015 Pneumonia Vaccine [id number] Given 03/31/2014 Flu Vaccine Split Virus Preservative Free For [id number] Indiv 3Yr Older Vital Signs Date Vital Result Comment 11/01/2017 Height 65 inches 5'5" Weight 217.00 lb Heart Rate 72 /min BP Systolic 110 mmHg BP Diastolic 82 mmHg Body Temperature 98.5 F Pain Level 8 lower back/Right hip O2 % BldC Oximetry 98 % BMI (Body Mass Index) 36.1 kg/m2 10/24/2017 Height 65 inches 5'5" Weight 216.00 lb Heart Rate 64 /min BP Systolic 110 mmHg BP Diastolic 76 mmHg O2 % BldC Oximetry 97 % BMI (Body Mass Index) 35.9 kg/m2 10/17/2017 Height 65 inches 5'5" Weight 220.38 lb Heart Rate 64 /min BP Systolic 110 mmHg BP Diastolic 72 mmHg BMI (Body Mass Index) 36.7 kg/m2 08/14/2017 Height 65 inches 5'5" Weight 221.00 lb Heart Rate 76 /min BP Systolic 116 mmHg BP Diastolic 76 mmHg Body Temperature 99.1 F O2 % BldC Oximetry 96 % BMI (Body Mass Index) 36.8 kg/m2 07/17/2017 Weight 225.00 lb Heart Rate 71 [...] Diastolic Sitting 70 mmHg Pain Level 10 10 O2 % BldC Oximetry 98 % BMI [...] Test Date Test Result H/L Range Note Urinalysis Profile 08/09/2017 Urine Color Colorless Urine Appearance Clear Urine Specific [place] 1.004 Low 1.010-1.030 Urine pH 6.0 5-9 Urine Urobilinogen Negative Negative Urine Ketones Negative Negative Urine Protein Negative Negative Urine Leukocytes Negative Negative Urine Blood 2+ Negative Urine Nitrite Negative Negative Urine Bilirubin Negative Negative Urine Glucose Negative Negative Urine White Blood Cell Trace(0-5/hpf) Absent Urine Red Blood Cell Trace(0-2/hpf) Absent Urine Bacteria Absent Absent Urine Culture And 08/09/2017 Urine Culture SEE RESULT BELOW 1 Sensitivities CBC Auto Diff 08/09/2017 White Blood Count 5.2 10^3/uL 3.5-10.8 Red Blood Count 4.43 10^6/uL 4.0-5.4 Hemoglobin 14.0 g/dL 12.0-16.0 Hematocrit 41 % 35-47 Mean Corpuscular Volume 93 fL 80-97 Mean Corpuscular Hemoglobin 32 pg High 27-31 Mean Corpuscular HGB Conc 34 g/dL 31-36 Red Cell Distribution Width 14 % 10.5-15 Platelet Count 165 10^3/uL 150-450 Mean Platelet Volume 9.0 um3 7.4-10.4 Abs Neutrophils 4.0 10^3/uL 1.5-7.7 Abs Lymphocytes 0.6 10^3/uL Low 1.0-4.8 Abs Monocytes 0.4 10^3/uL 0-0.8 Abs Eosinophils 0.1 10^3/uL 0-0.6 Abs Basophils 0 10^3/uL 0-0.2 Abs Nucleated RBC 0 10^3/uL Granulocyte % 78.1 % 38-83 Lymphocyte % 11.5 % Low 25-47 Monocyte % 7.2 % High 0-7 Eosinophil % 2.2 % 0-6 Basophil % 1.0 % 0-2 Nucleated Red Blood Cells % 0.1 Comp Metabolic Panel 08/09/2017 Sodium 136 mmol/L 133-145 Potassium 3.5 mmol/L 3.5-5.0 Chloride 103 mmol/L 101-111 Co2 Carbon Dioxide 26 mmol/L 22-32 Anion Gap 7 mmol/L 2-11 Glucose 86 mg/dL 70-100 Blood Urea Nitrogen 21 mg/dL 6-24 Creatinine 0.80 mg/dL 0.51-0.95 BUN/Creatinine Ratio 26.3 High 8-20 Calcium 8.9 mg/dL 8.6-10.3 Total Protein 6.9 g/dL 6.4-8.9 Albumin 4.0 g/dL 3.2-5.2 Globulin 2.9 g/dL 2-4 Albumin/Globulin Ratio 1.4 1-3 Total Bilirubin 0.50 mg/dL 0.2-1.0 Alkaline Phosphatase 69 U/L 34-104 Alt 16 U/L 7-52 Ast 17 U/L 13-39 Egfr Non- 74.2 >60 Egfr 95.4 >60 2 Laboratory test finding 08/09/2017 Lipase 23 U/L 11.0-82.0 Laboratory test finding 07/17/2017 Uric Acid 4.9 mg/dL 2.3-6.6 Erythrocyte Sed Rate 31 mm/Hr High 0-30 CBC Auto Diff 07/17/2017 White Blood Count 7.0 10^3/uL 3.5-10.8 Red Blood Count 4.30 10^6/uL 4.0-5.4 Hemoglobin 13.4 g/dL 12.0-16.0 Hematocrit 40 % 35-47 Mean Corpuscular Volume 93 fL 80-97 Mean Corpuscular Hemoglobin 31 pg 27-31 Mean Corpuscular HGB Conc 33 g/dL 31-36 Red Cell Distribution Width 15 % 10.5-15 Platelet Count 197 10^3/uL 150-450 Mean Platelet Volume 10 um3 7.4-10.4 Abs Neutrophils 4.3 10^3/uL 1.5-7.7 Abs Lymphocytes 1.7 10^3/uL 1.0-4.8 Abs Monocytes 0.6 10^3/uL 0-0.8 Abs Eosinophils 0.2 10^3/uL 0-0.6 Abs Basophils 0.1 10^3/uL 0-0.2 Abs Nucleated RBC 0 10^3/uL Granulocyte % 61.5 % 38-83 Lymphocyte % 24.8 % Low 25-47 Monocyte % 9.2 % High 0-7 Eosinophil % 3.2 % 0-6 Basophil % 1.3 % 0-2 Nucleated Red Blood Cells % 0 Laboratory test finding 05/20/2017 Rapid Strep Molecular Negative Negative 3 Basic Metabolic Panel 03/12/2017 Sodium 139 mmol/L 133-145 Potassium 4.0 mmol/L 3.5-5.0 Chloride 105 mmol/L 101-111 Co2 Carbon Dioxide 29 mmol/L 22-32 Anion Gap 5 mmol/L 2-11 Glucose 93 mg/dL 70-100 Blood Urea Nitrogen 18 mg/dL 6-24 Creatinine 0.76 mg/dL 0.51-0.95 BUN/Creatinine Ratio 23.7 High 8-20 Calcium 8.9 mg/dL 8.6-10.3 Egfr Non- 78.7 >60 Egfr 101.2 >60 4 Laboratory test finding 03/12/2017 Magnesium 2.2 mg/dL 1.9-2.7 Lipid Profile (Trig/Chol/HDL) 03/12/2017 Triglycerides 121 mg/dL 5 Cholesterol 194 mg/dL 6 HDL Cholesterol 47.1 mg/dL 7 LDL Cholesterol 123 mg/dL 8 CBC Auto Diff 10/06/2016 White Blood Count [...] finding 10/06/2016 Lactic Acid 0.5 mmol/L 0.5-2.0 9 Comp Metabolic Panel 10/06/2016 Sodium 138 mmol/L [...] Egfr Non- 71.4 >60 Egfr 91.8 >60 10 Laboratory test finding 10/06/2016 Magnesium 2.2 mg/dL 1.9-2.7 Troponin-I (TnI) 0.00 ng/mL <0.04 11 TSH (Thyroid Stim Horm) 1.63 mcIU/mL 0.34-5.60 Lipid Profile (Trig/Chol/HDL) 10/03/2016 Triglycerides 107 mg/dL 12 Cholesterol 248 mg/dL 13 HDL Cholesterol 52.8 mg/dL 14 LDL Cholesterol 174 mg/dL 15 Comp Metabolic Panel 02/18/2016 Sodium 139 mmol/L 133-145 16 Potassium 3.6 mmol/L 3.5-5.0 16 Chloride 102 mmol/L 101-111 16 Co2 Carbon Dioxide 32 mmol/L 22-32 16 Anion Gap 5 mmol/L 2-11 16 Glucose 73 mg/dL 70-100 16 Blood Urea Nitrogen 15 mg/dL 6-24 16 Creatinine 0.77 mg/dL 0.51-0.95 16 BUN/Creatinine Ratio 19.5 8-20 16 Calcium 9.5 mg/dL 8.6-10.3 16 Total Protein 7.4 g/dL 6.4-8.9 16 Albumin 4.5 g/dL 3.2-5.2 16 Globulin 2.9 g/dL 2-4 16 Albumin/Globulin Ratio 1.6 1-3 16 Total Bilirubin 0.40 mg/dL 0.2-1.0 16 Alkaline Phosphatase 74 U/L 34-104 16 Alt 13 U/L 7-52 16 Ast 18 U/L 13-39 16 Egfr Non- 78.1 >60 16 Egfr 100.5 >60 16, 17 Laboratory test finding 02/18/2016 Uric Acid 4.1 mg/dL 2.3-6.6 16, 18 CBC Auto Diff 02/18/2016 White Blood Count 4.3 10^3/uL 3.5-10.8 16 Red Blood Count 4.48 10^6/uL 4.0-5.4 16 Hemoglobin 14.1 g/dL 12.0-16.0 16 Hematocrit 41 % 35-47 16 Mean Corpuscular Volume 92 fL 80-97 16 Mean Corpuscular Hemoglobin 31 pg 27-31 16 Mean Corpuscular HGB Conc 34 g/dL 31-36 16 Red Cell Distribution Width 14 % 10.5-15 16 Platelet Count 192 10^3/uL 150-450 16 Mean Platelet Volume 11 um3 High 7.4-10.4 16 Abs Neutrophils 2.1 10^3/uL 1.5-7.7 16 Abs Lymphocytes 1.7 10^3/uL 1.0-4.8 16 Abs Monocytes 0.3 10^3/uL 0-0.8 16 Abs Eosinophils 0.1 10^3/uL 0-0.6 16 Abs Basophils 0 10^3/uL 0-0.2 16 Abs Nucleated RBC 0.01 10^3/uL 16 Granulocyte % 48.0 % 38-83 16 Lymphocyte % 39.7 % 25-47 16 Monocyte % 8.1 % 1-9 16 Eosinophil % 3.3 % 0-6 16 Basophil % 0.9 % 0-2 16 Nucleated Red Blood Cells % 0.1 16 Laboratory test finding 02/18/2016 Erythrocyte Sed Rate 39 mm/Hr High 0- 30 16, 19 Lyme Disease Serology Negative Negative 16, 20 Factor 8 Profile 01/19/2016 Coagulation Factor VIII Activi 98 % 55 - 200 von Willebrand Factor Antigen 82 % 55 - 200 VonWillibrand Factor Activity 81 % 55 - 200 von Willebrand Panel Interp See Comment 21 Laboratory test finding 01/19/2016 Haptoglobin 134 mg/dL 30 - 200 22 Laboratory test finding 01/19/2016 LDH 192 U/L [...] 01/17/2016 Hepatitis B Dna Undetected IU/mL Undetected 23 finding Quantitative Hepatitis Be Antigen Negative Negative 24 Laboratory test finding 01/13/2016 Hepatitis B Surface Ag Nonreactive Nonreactive Hepatitis B Core AB Igm Nonreactive Nonreactive Hepatitis B Core AB Total Positive Negative 25 Hepatitis B Brittany AB Titer 01/01/2016 Hepatitis B Surface AB Reactive Nonreactive 26 Hep B Surf AB Level > 1000.00 mIU/mL <12 26, 27 Urine Culture And 01/01/2016 Urine Culture SEE RESULT 28, 29 Sensitivities BELOW CBC Auto Diff 12/07/2015 White [...] Color Straw Urine Appearance Clear Urine Specific [place] 1.012 1.010-1.030 Urine pH 6.0 5-9 Urine [...] finding 12/07/2015 Lactic Acid 1.6 mmol/L 0.5-2.0 30 Troponin-I (TnI) 0.00 ng/mL <0.03 31 CKMB 12/07/2015 CKMB ng/mL 2.3 ng/mL 0.6-6.3 [...] Egfr Non- 84.4 >60 Egfr 108.6 >60 32 Laboratory test finding 12/07/2015 Lipase 34 U/L [...] Egfr Non- 78.1 >60 Egfr 100.5 >60 33 Laboratory test finding 09/28/2015 TSH (Thyroid Stim 1.25 ?IU/mL 0.34- 5.60 Horm) Vitamin B12 And Folate 09/28/2015 Vitamin B12 375 pg/mL 180-914 34 Serum Folic Acid (Folate) 11.27 ng/mL >3.99 Laboratory test 04/14/2015 Cytology Non-Chancellor SEE RESULT BELOW 35 finding Laboratory test 04/08/2015 Rapid Group A [...] Egfr Non- 77.3 >60 Egfr 99.4 >60 36 Laboratory test finding 12/23/2014 Lipase 20 U/L 11.0-82.0 C Reactive Protein 22.43 mg/L High < 5.00 37 HCG Qualitative Negative Negative Urinalysis Profile 12/23/2014 Urine Color Colorless Urine Appearance Clear Urine Specific [place] 1.017 1.010-1.030 Urine pH 6.0 5-9 Urine [...] 12/23/2014 Urine Culture And SEE RESULT BELOW 38 Sensitivities Laboratory test finding 12/23/2014 Throat Beta Strep Culture SEE RESULT BELOW 39 Urinalysis Profile 09/14/2014 Urine Color Straw Urine Appearance Clear Urine Specific [place] 1.011 1.010-1.030 Urine pH 7.0 5-9 Urine [...] Culture And 09/14/2014 Urine Culture (SEE NOTE) 40 Sensitivities CBC Auto Diff 09/14/2014 White Blood [...] Dimer Quantitative 219 ng/mL Less Than 230 41 Lactic Acid 0.7 mmol/L 0.5-2.2 B Type Natriuretic Peptide 44 pg/mL 42 Comp Metabolic Panel 09/14/2014 Sodium 138 mmol/L [...] Egfr Non- 76.1 >60 Egfr 97.9 >60 43 Laboratory test finding 09/14/2014 Magnesium 2.1 mg/dL 1.9-2.7 Lipase 27 U/L 11.0-82.0 Troponin I 0.00 ng/mL <0.03 44 TSH (Thyroid Stimulating Horm) 0.93 IU/mL 0.34-5.60 C Reactive Protein 2.46 mg/L < 5.00 45 CBC Auto Diff 09/12/2014 White Blood Count [...] Egfr Non- 68.1 >60 Egfr 87.6 >60 46 Laboratory test finding 09/12/2014 Lipase 19 U/L 11.0-82.0 C Reactive Protein 4.85 mg/L < 5.00 47 H Pylori Iga 09/08/2014 Helicobacter pylori IgA Ab Negative Negative H pylori IgA Ab Index 1.93 48 H.Pylori Igg AB 09/08/2014 Helicobacter pylori IgG Ab Negative Negative H pylori IgG AB Index 2.19 49 H.Pylori Igm AB 09/08/2014 Helicobacter pylori IgM Ab Negative Negative H pylori IgM AB Index 23.90 50 Laboratory test finding 08/21/2014 C. difficile Amplified Dna (SEE NOTE) 51 Entamoeba histolytica Antigen NOT DETECTED 52 E.coli O157:H7 Culture (SEE NOTE) 53 O&P Ova & 08/21/2014 Ova Parasite Concen (SEE NOTE) 54 Parasites Full Full Laboratory test finding 08/21/2014 Stool Culture (SEE NOTE) 55 CBC Auto Diff 08/14/2014 White Blood Count [...] 08/14/2014 Activated Partial 35.1 seconds 26.0- 36.3 56 Thrombo Time Comp Metabolic Panel 08/14/2014 Sodium [...] Egfr Non- 82.1 >60 Egfr 105.6 >60 57 Laboratory test finding 08/14/2014 TSH (Thyroid Stimulating 2.37 IU/mL 0.34-5.60 Horm) Laboratory test finding 06/24/2014 Blood Urea Nitrogen 15 mg/dL 6-24 Creatinine 06/24/2014 Creatinine 0.79 mg/dL 0.51-0.95 Egfr Non- 76.1 >60 Egfr 97.9 >60 58 Comp Metabolic Panel 02/06/2014 Sodium 138 mmol/L 133-145 59 Potassium 3.9 mmol/L 3.7-5.6 59 Chloride 102 mmol/L 101-111 59 Co2 Carbon Dioxide 31 mmol/L 22-32 59 Anion Gap 5 mmol/L 2-11 59 Glucose 83 mg/dL 70-100 59 Blood Urea Nitrogen 14 mg/dL 6-24 59 Creatinine 0.70 mg/dL 0.51-0.95 59 BUN/Creatinine Ratio 20.0 8-20 59 Calcium 9.0 mg/dL 8.6-10.3 59 Total Protein 6.8 g/dL 6.4-8.9 59 Albumin 4.1 g/dL 3.2-5.2 59 Globulin 2.7 g/dL 2-4 59 Albumin/Globulin Ratio 1.5 1-3 59 Total Bilirubin 0.50 mg/dL 0.2-1.0 59 Alkaline Phosphatase 63 U/L 34-104 59 Alt 19 U/L 7-52 59 Ast 18 U/L 13-39 59 Egfr Non- 87.9 >60 59 Egfr 113.0 >60 59, 60 Lipid Profile (Trig/Chol/HDL) 02/06/2014 Triglycerides 181 mg/dL 59, 61 Cholesterol 192 mg/dL 59, 62 HDL Cholesterol 52.3 mg/dL 59, 63 LDL Cholesterol 104 mg/dL 59, 64 Laboratory test 10/31/2013 Cytology RUN DATE: finding <SEE NOTE> HPV High Risk 10/31/2013 Human Papillomavirus See Comment 66 Source HPV High Risk Type 16, PCR Positive Negative HPV High Risk Type 18, PCR Negative Negative HPV Other Risk types Negative Negative 67 Laboratory test finding 09/30/2013 Vitamin B12 290 pg/mL 180-914 68 Ua Routine 09/12/2013 Ua Specific [place] 1.020 Ua PH 5 Ua Color yellow [...] Egfr Non- 79.9 >60 Egfr 102.8 >60 69 Manual Differential 09/06/2013 Neutrophil % 43 % 38-83 Band % 1 % 0-8 Lymphocytes % 42 % 25-47 Monocytes % 5 % 0-13 Eosinophils % 5 % 0-6 Basophil % 2 % 0-2 Reactive Lymph % 2 % 0-6 RBC Morphology Normal Normal Urinalysis 09/06/2013 Urine Color Yellow Urine Appearance Clear Urine Specific [place] 1.021 1.010-1.030 Urine Esterase 1+ Negative Urine [...] And Sensitivities 09/06/2013 Urine Culture (SEE NOTE) 70 Iron & Iron Binding Capacity 07/01/2013 Iron 95 g/dL 50-212 Unsaturated Iron Binding 349 g/dL Total Iron Binding Capacity 444 g/dL 250-450 % Iron Saturation 21 % 15-55 Laboratory test finding 07/01/2013 Ferritin 14.2 ng/mL 11-307 71 CBC Auto Diff 07/01/2013 White Blood Count [...] finding 07/01/2013 Vitamin B12 378 pg/mL 180-914 72 Vitamin D, 25 Hydroxy 07/01/2013 25-Hydroxy Vitamin D2 <4.0 ng/mL 25-Hydroxy Vitamin D3 27 ng/mL 25-Hydroxy Vitamin D Total 27 ng/mL 73 Lipid Profile (Trig/Chol/HDL) 07/01/2013 Triglycerides 57 mg/dL 74 Cholesterol 223 mg/dL 75 HDL Cholesterol 66.9 mg/dL 76 LDL Cholesterol 145 mg/dL 77 Laboratory test finding 07/01/2013 Glucose 83 mg/dL 70-100 78 TSH (Thyroid Stimulating Horm) 1.61 IU/mL 0.34-5.60 79 Urinalysis 03/21/2013 Urine Color Yellow Urine Appearance Clear Urine Specific [place] 1.024 1.010-1.030 Urine Esterase 2+ Negative Urine Nitrate Negative Negative Urine Urobilinogen Negative E.U./dL Negative Urine Protein Negative mg/dL Negative Urine pH 5.5 5-9 Urine Blood 2+ Negative Urine Ketones Negative mg/dL Negative Urine Bilirubin Negative Negative Urine Glucose Negative mg/dL Negative Urine Microscopic 03/21/2013 Urine WBC 2+ (>10-30 /hpf) None Seen 80 Urine RBC 1+ (<3 /hpf) None Seen Urine Mucus Present /lpf Absent Bacteria Urine 1+ None Seen Urine Culture And Sensitivities 03/21/2013 Urine Culture (SEE NOTE) 81 Urinalysis W/Microscopic 03/10/2013 Urine Color (SEE NOTE) 82 Urine WBC 2+ (>10-30 /hpf) None Seen 83 Urine RBC 1+ (<3 /hpf) None Seen Urine Epithelial Cells 2+ Squamous /hpf None Seen Bacteria Urine 1+ None Seen Laboratory test finding 09/18/2012 Glucose 84 mg/dL 70-100 84 Lipid Profile (Trig/Chol/HDL) 09/18/2012 Triglycerides 109 mg/dL 40-200 Cholesterol 234 mg/dL High Less than 200 HDL Cholesterol 52 mg/dL 40-60 85 Cholesterol/HDL Ratio 4.5 Average High 1-4.44 LDL Cholesterol 160.2 mg/dL High Less Than 100 86 CBC Auto Diff 08/30/2012 White Blood Count [...] 0.34-5.60 Horm) Follicle Stimulating Hormone 23.84 miu/mL 87 Basic Metabolic Panel 01/31/2012 Sodium 138 mmol/L 135-145 Potassium 3.8 mmol/L 3.5-5.0 Chloride 103 mmol/L 101-111 Co2 (Carbon Dioxide) 30.0 mmol/L 22-32 Anion Gap 5.0 mmol/L 2-11 88 Glucose 77 mg/dL 70-100 BUN 15 mg/dL 6-24 Creatinine 0.6 mg/dL 0.50-1.40 One Over Creatinine 1.66 BUN/Creatinine Ratio 25.0 High 8-20 Calcium 9.1 mg/dL 8.1-9.9 eGFR Non- 105.8 > 60 eGFR 136.1 > 60 89 Laboratory test finding 01/31/2012 BHCG Quantitative < 2.1 MIU/ML 0-5 90 Ua Routine 01/31/2012 Ua Specific [place] 1.015 Ua PH 5 Ua Color yellow Ua Appera clear Ua WBC neg Ua Protein neg Ua Glucose neg Ua Ketones neg Ua Bilirubin neg Ua Urobilinogen neg Ua Nitrite neg Ua Occult Blood small Laboratory test finding 01/31/2012 PTT (Aptt) 28.1 SEC 25.1-38.5 Protime 01/31/2012 Inr 0.89 0.88-1.13 91 Protime 10.6 SEC 10.3-13.5 92 CBC With Manual Diff 01/31/2012 White Blood [...] 25-Hydroxy Vitamin D Total 27 ng/mL () 93 Laboratory test finding 07/05/2011 TSH 1.53 MIU/ML 0.34-5.60 Thyroxine Free 0.56 ng/dL Low 0.61-1.24 Laboratory test finding 04/18/2011 Hepatitis C Antibody Nonreactive Nonreactive Hepatitis B Surface Ag Nonreactive Nonreactive Hepatitis B Core AB, Total Positive Negative 94 Hepatitis Be Antibodies Positive Negative 95 Laboratory test 04/18/2011 Ferritin < 10 NG/ML Low 11.0-307 finding Hepatitis B Surface AB 04/18/2011 Hepatitis B Surface Reactive Nonreactive AB Hbsab Index > 100.00 96 Laboratory test finding 04/18/2011 CPK (Creatine Kinase) 108 U/L 0-170 Lipid Profile (Trig/Chol/HDL) 04/18/2011 Triglyceride 122 mg/dL 40-200 Cholesterol 240 mg/dL High Less Than 200 97 High Density Lipoprotein 65 mg/dL High 40-60 98 Cholesterol/HDL Ratio 3.69 AVERAGE 1-4.44 Low Density Lipoprotein 151 mg/dL High Less Than 100 99 Comp Metabolic Panel 04/18/2011 Sodium 141 mmol/L 135-145 Potassium 4.4 mmol/L 3.5-5.0 Chloride 103 mmol/L 101-111 Co2 (Carbon Dioxide) 31.0 mmol/L 22-32 Anion Gap 7.0 mmol/L 2-11 100 Glucose 93 mg/dL 70-100 BUN 12 mg/dL 6-24 Creatinine 0.8 mg/dL 0.50-1.40 One Over Creatinine 1.25 BUN/Creatinine Ratio 15.0 8-20 Calcium 9.4 mg/dL 8.1-9.9 Total Protein 6.9 GM/DL 6.2-8.1 Albumin 4.0 GM/DL 3.6-5.4 Globulin 2.9 GM/DL 2-4 Albumin/Globulin Ratio 1.4 1-3 Bilirubin Total 0.7 mg/dL 0.4-1.5 101 Alkaline Phosphatase 62 U/L 30-110 Alt (SGPT) 22 U/L 14-54 Ast (Sgot) 21 U/L 12-42 eGFR Non- 75.9 > 60 eGFR 97.6 > 60 102 CBC Auto Diff 04/18/2011 White Blood Count [...] Eosinophils 0.2 0-0.6 Abs Basophils 0 0-0.2 Iron & Iron Binding Capacity 04/18/2011 Iron Total 69 g/dL 28-170 Unsaturated Iron Binding 452 g/dL Total Iron Binding Capacity 521 g/dL High 250-450 % Iron Saturation 13 % Low 15-55 Vitamin D, 25 Hydroxy 03/29/2011 25-Hydroxy Vitamin D2 <4.0 ng/mL () 25-Hydroxy Vitamin D3 25 ng/mL () 25-Hydroxy Vitamin D Total 25 ng/mL () 103 CBC Auto Diff 03/29/2011 White Blood Count [...] Eosinophils 0.1 0-0.6 Abs Basophils 0 0-0.2 Iron & Iron Binding Capacity 03/29/2011 Iron Total 67 g/dL 28-170 Unsaturated Iron Binding 460 g/dL Total Iron Binding Capacity 527 g/dL High 250-450 % Iron Saturation 13 % Low 15-55 Laboratory test finding 03/29/2011 Ferritin < 10 NG/ML Low 11.0-307 1 SEE RESULT BELOW Name: KEENA COATES : [address]: Maco Nettles MD Acct: [id number] Unit: [id number] AGE: 57 Location: ED Re08/09/17 SEX: F Status: DEP ER SPEC: [id number] HASEEB: 08/09/[address] [facility] [address]: Maco Nettles MD REQ: [id number] RECD: 08/09/17 STATUS: COMP HR DR: Lui Samson MD _ SOURCE: URINE SPDESC: ORDERED: Urine Culture Procedure Result Reported Site Urine Culture Final 08/11/17 0654 ML No Growth (<1,000 CFU/mL) * ML - Main Lab . END OF REPORT DEPARTMENT OF PATHOLOGY, [address] [place] [address] Wayne Duff M.D. Director [facility] # [id number] 2 Because ethnic data is not always [...] 5 Kidney failure <15 (or dialysis) 3 Core Carrier: [id number] 4 Because ethnic data is not always readily [...] 15-29 5 Kidney failure <15 (or dialysis) 5 Desirable: <150 Borderline High: 150-199 High: 200-499 Very High: >500 6 Desirable: <200 Borderline High: 200-239 High: >239 7 Low: <40 Desirable: 40-60 High: >60 8 Desirable: <100 Near Optimal: 100-129 Borderline High: 130-159 High: 160-189 Very High: >189 9 [place] Severe Sepsis and Septic Shock Management Bundle Measure requires all lactic acids initially measuring >2.0 mmol/L be repeated. 10 Because ethnic data is not always readily [...] 15-29 5 Kidney failure <15 (or dialysis) 11 99th percentile=0.04 ng/mL Troponin results at [facility] and [facility] are not interchangeable. 12 Desirable <150 Borderline high 150-199 High 200-499 Very High >500 13 Desirable <200 Borderline high 200-239 High >239 14 Low <40 Desirable: 40-60 High: >60 15 Desirable: <100 mg/dL Near Optimal: 100-129 mg/dL Borderline High: 130-159 mg/dL High: 160-189 mg/dL Very High: >189 mg/dL 16 [id number] 17 Because ethnic data is not always readily [...] 15-29 5 Kidney failure <15 (or dialysis) 18 [id number] 19 [id number] 20 Serologic response to B. burgdorferi infection is not detected, but cannot rule out early infection during which low or undetectable antibody levels to B. burgdorferi may be present. If clinically indicated, a new serum specimen should be submitted in 7-14 days. Lipemic Test Performed by: [place] [address] Soil Sort Worker: Quan Fishman II, M.D., Ph.D. 21 No laboratory evidence of von Willebrand's disease [...] not reviewed by physician. Test Performed by: [place] [address] Soil Sort Worker: Quan Fishman II, M.D., Ph.D. 22 Test Performed by: [place] [address] Soil Sort Worker: Quan iFshman II, M.D., Ph.D. 23 Result in log IU/mL is Undetected The quantification range of this assay is 20 IU/mL to 170,000,000 IU/mL (1.30 log IU/mL to 8.23 log IU/mL). Testing was performed by the CAROL AmpliPrep/CAROL TaqMan HBV test, version 2.0 ([employer] Test Performed by: [place] [address] Soil Sort Worker: Quan Fishman II, M.D., Ph.D. 24 Test Performed by: [place] [address] Soil Sort Worker: Quan Fishman II, M.D., Ph.D. 25 If clinically indicated, testing for Hepatitis B Core IgM antibody is necessary to differentiate between acute and past HBV infection. Test Performed by: [facility] [place] [address] Soil Sort Worker: Quan Fishman II, M.D., Ph.D. 26 [id number] 27 This assay does not differentiate between reactivity due to a vaccine-induced immune response or an immune response induced by infection with HBV. 28 [id number] 29 SEE RESULT BELOW Name: KEENA COATES : [address]: Kevin Boyd MD Acct: [id number] Unit: [id number] AGE: 55 Location: [facility] Re01/01/16 SEX: F Status: DEP ER SPEC: [id number] HASEEB: 01/01/16-[address] [facility] [address]: Sara Palacio NP REQ: [id number] RECD: 01/02/16-130 STATUS: CELIA ERNANDEZ DR: [facility] Lui Samson MD _ SOURCE: URINE SPDESC: ORDERED: Urine Culture COMMENTS: [id number] Procedure Result Reported Site Urine Culture Final 01/03/16- 1457 ML No Growth (<1,000 CFU/mL) * ML - MAIN LAB ([facility]) . END OF REPORT * ML=Testing performed at Main Lab DEPARTMENT OF PATHOLOGY, [address] [place] [address] Wayne Duff M.D. Director [facility] # [id number] 30 [facility] Severe Sepsis and Septic Shock Management Bundle Measure requires all lactic acids initially measuring >2.0 mmol/L be repeated. 31 Reference Range and Interpretation: TnI (ng/mL) Interpretation Less Than 0.03 ng/mL Not supportive of diagnosis of NE 0.03 - 0.50 ng/mL Indeterminate: suggest serial studies if clinically indicated. Greater than 0.5 ng/mL Consistent with diagnosis of NE 32 Because ethnic data is not always readily [...] 15-29 5 Kidney failure <15 (or dialysis) 33 Because ethnic data is not always readily [...] 15-29 5 Kidney failure <15 (or dialysis) 34 Normal Range 180 to 914 Indeterminate Range 145 to 180 Deficient Range <145 35 SEE RESULT BELOW Name: KEENA COATES : [address]: Dwight Brown MD Acct: [id number] Unit: [id number] AGE: 55 Location: LAB Re04/14/15 SEX: F Status: REG REF SPEC: [id number] HASEEB: 04/14/[address] [facility] [address]: Dwight Brown MD REQ: [id number] RECD: 04/14/15 STATUS: SULTANA ERNANDEZ DR: Alcides Brody MD _ ORDERED: THIN PREP NON G FINAL DIAGNOSIS Urine, voided: Negative for malignant cells. URINE VOID CLINICAL HISTORY Gross hematuria GROSS DESCRIPTION 5 mls of cloudy peach colored urine. Signed (signature on file) Wayne Duff MD [id number] END OF REPORT * ML=Testing performed at Main Lab DEPARTMENT OF PATHOLOGY, [address] [place] [address] Wayne Duff M.D. Director [facility] # [id number] 36 Because ethnic data is not always readily [...] 15-29 5 Kidney failure <15 (or dialysis) 37 Acute inflammation: >10.00 38 SEE RESULT BELOW Name: KEENA COATES : [address]: Eusebio Matute MD Acct: [id number] Unit: [id number] AGE: 54 Location: ED Re12/23/14 SEX: F Status: DEP ER SPEC: [id number] HASEEB: 12/24/[address]: Gene Godoy DO REQ: [id number] RECD: 12/24/14 STATUS: CELIA ERNANDEZ DR: Alcides Brody MD _ SOURCE: URINE SPDESC: ORDERED: Urine Culture Procedure Result Verified Site Urine Culture Final 12/26/14- 1034 ML Organism 1 NORMAL CHAVEZ [place] Count 25-50,000 (Moderate) CFU/ML * ML - MAIN LAB ([facility]) . END OF REPORT * ML=Testing performed at Main Lab DEPARTMENT OF PATHOLOGY, [address] [place] [address] Wayne Duff M.D. Director [facility] # [id number] 39 SEE RESULT BELOW Name: KEENA COATES : [address]: Eusebio Garcia MD Acct: [id number] Unit: [id number] AGE: 54 Location: [facility] Re12/23/14 SEX: F Status: DEP ER SPEC: [id number] HASEEB: 12/23/14-[address]: Eusebio Garcia MD REQ: [id number] RECD: 12/24/14 STATUS: COMP [facility] DR: [facility] Alcides Brody MD _ SOURCE: THROAT SPDESC: ORDERED: Throat Beta Str Procedure Result Verified Site Throat Beta Strep Culture Final 12/26/14- 849 ML Negative For Group A Beta Streptococcus * ML - MAIN LAB ([facility]) . END OF REPORT * ML=Testing performed at Main Lab DEPARTMENT OF PATHOLOGY, [facility] [employer] [place], [place] [address] Wayne Duff M.D. Director [facility] # [id number] 40 RUN DATE: 09/16/14 [facility] LAB LIVE PAGE 1 RUN TIME: 825 [facility] [address] [place], [place] [address] Specimen Inquiry Name: KEENA COATES : [address]: Quan Guerrero MD Acct: [id number] Unit: [id number] AGE: 54 Location: ED Re09/14/14 SEX: F Status: DEP ER SPEC: [id number] HASEEB: 09/14/[address] [facility] [address]: Quan Guerrero MD REQ: [id number] RECD: 09/14/14 STATUS: CELIA ERNANDEZ DR: Alcides Brody MD _ SOURCE: URINE SPDESC: ORDERED: Urine Culture Procedure Result Verified Site Urine Culture Final 09/16/14- 825 ML Organism 1 NORMAL CHAVEZ [place] Count 10-25,000 (Moderate) CFU/ML * ML - MAIN LAB ([facility]) . END OF REPORT * ML=Testing performed at Main Lab DEPARTMENT OF PATHOLOGY, [address] [place] [address] Wayne Duff M.D. Director [facility] # [id number] 41 Please note: The following may produce a false positive D Dimer test: - Rheumatoid factor greater than 60 IU/ml - Plasma hemoglobin greater than 0.05 gm/dl - Bilirubin greater than 50 mg/dl - Lipids greater than 1000 mg/dl - FDP greater than 20 ug/ml 42 >100 to <200 pg/mL: likely compensated congestive heart failure (CHF) 200 to 400 pg/mL: likely moderate CHF >400 pg/mL: likely moderate to severe CHF [place] [facility] 43 Because ethnic data is not always readily [...] 15-29 5 Kidney failure <15 (or dialysis) 44 Reference Range and Interpretation: TnI (ng/mL) Interpretation Less Than 0.03 ng/mL Not supportive of diagnosis of NE 0.03 - 0.50 ng/mL Indeterminate: suggest serial studies if clinically indicated. Greater than 0.5 ng/mL Consistent with diagnosis of NE 45 Acute inflammation: >10.00 46 Because ethnic data is not always readily [...] 15-29 5 Kidney failure <15 (or dialysis) 47 Acute inflammation: >10.00 48 Results with Index Values of <18.00 are negative. Test Performed by: [place] [address] Soil Sort Worker: Quan Fishman II, M.D., Ph.D. 49 Results with Index Values of <8.95 are negative. Test Performed by: [place] [address] Soil Sort Worker: Quan Fishman II, M.D., Ph.D. 50 Results with Index Values of <36.00 are negative. Test Performed by: [place] [address] Soil Sort Worker: Quan Fishman II, M.D., Ph.D. 51 RUN DATE: 08/21/14 [facility] LAB LIVE PAGE 1 RUN TIME: [address] [place] [address] Specimen Inquiry Name: KEENA COATES : [address]: Alcides Brody MD Acct: [id number] Unit: [id number] AGE: 54 Location: [facility] Re08/21/14 SEX: F Status: REG REF SPEC: [id number] HASEEB: 08/21/14-[address] [facility] [address]: Alcides Brody MD REQ: [id number] RECD: 08/21/14 STATUS: RES _ SOURCE: STOOL SPDESC: ORDERED: E.coli O157:H7, Stool Culture, C. diff Amp DNA, O P (Full) QUERIES: Provider Requisition # [id number] Procedure Result Verified Site E.coli O157:H7 Culture [...] performed at Main Lab DEPARTMENT OF PATHOLOGY, [facility] [employer] [place] [address] Wayne Duff M.D. Director [facility] # [id number] RUN DATE: 08/21/14 [facility] LAB LIVE PAGE 2 RUN TIME: [address] [place] [address] Specimen Inquiry Patient: LILIAKEENA [id number] (Continued) Specimen: [id number] Collected: 08/21/14-1029 Received: 08/21/14-1056 (Continued) Procedure Result Verified Site C. difficile Amplified DNA Final (continued) 08/21/14- 1439 O P: Giardia/Cryptospor Screen Final 08/21/14- 1409 [...] Full PENDING * ML - MAIN LAB ([facility]) . END OF REPORT * ML=Testing performed at Main Lab DEPARTMENT OF PATHOLOGY, [address] [place] [address] Wayne Duff M.D. Director [facility] # [id number] 52 REFERENCE RANGE: NOT DETECTED The Entamoeba histolytica antigen EIA test detects only the antigen of the pathogenic E. histolytica; the non-pathogenic E. dispar is not detected. Test Performed by: [place], [place]. [address] [facility] [place] [address] 53 RUN DATE: 08/23/14 [facility] LAB LIVE PAGE 1 RUN TIME: [address] [place] [address] Specimen Inquiry Name: KEENA COATES : [address]: Alcides Brody MD Acct: [id number] Unit: [id number] AGE: 54 Location: [facility] Re08/21/14 SEX: F Status: REG REF SPEC: [id number] HASEEB: 08/21/14-[address]: Alcides Brody MD REQ: [id number] RECD: 08/21/14 STATUS: RES _ SOURCE: STOOL SPDESC: ORDERED: E.coli O157:H7, Stool Culture, C. diff Amp DNA, O P (Full) QUERIES: Provider Requisition # [id number] Procedure Result Verified Site E.coli O157:H7 Culture [...] performed at Main Lab DEPARTMENT OF PATHOLOGY, [facility] [employer] [place] [address] Wayne Duff M.D. Director [facility] # [id number] RUN DATE: 08/23/14 [facility] LIVE PAGE 2 RUN TIME: [address] [place] [address] Specimen Inquiry Patient: KEENA COATES [id number] (Continued) Specimen: [id number] Collected: 08/21/14 Received: 08/21/14 (Continued) Procedure Result Verified Site [...] Full PENDING * ML - MAIN LAB ([facility]) . END OF REPORT * ML=Testing performed at Main Lab DEPARTMENT OF PATHOLOGY, [facility] [employer] [place], [place] [address] Wayne Duff M.D. Director [facility] # [id number] 55 RUN DATE: 08/25/14 [facility] LIVE PAGE 1 RUN TIME: 2755 [facility] [address] [place], [place] [address] Specimen Inquiry Name: KEENA COATES : [address]: Alcides Brody MD Acct: [id number] Unit: [id number] AGE: 54 Location: [facility] Re08/21/14 SEX: F Status: REG REF SPEC: [id number] HASEEB: 08/21/14-[address]: Alcides Brody MD REQ: [id number] RECD: 08/21/148710 STATUS: COMP _ SOURCE: STOOL SPDESC: ORDERED: E.coli O157:H7, Stool Culture, C. diff Amp DNA, O P (Full) QUERIES: Provider Requisition # [id number] Procedure Result Verified Site E.coli O157:H7 Culture [...] performed at Main Lab DEPARTMENT OF PATHOLOGY, [facility] [employer] [place] [address] Wayne Duff M.D. Director [facility] # [id number] RUN DATE: 08/25/14 [facility] LIVE PAGE 2 RUN TIME: [address] [place] [address] Specimen Inquiry Patient: KEENA COATES [id number] (Continued) Specimen: [id number] Collected: 08/21/14-1029 Received: 08/21/14-1056 (Continued) Procedure Result Verified Site Shiga Toxin [...] performed at Main Lab DEPARTMENT OF PATHOLOGY, [facility] [employer] [place] [address] Wayne Duff M.D. Director [facility] # [id number] RUN DATE: 08/25/14 [facility] LIVE PAGE 3 RUN TIME: 1608 [facility] [address] [place], [place] [address] Specimen Inquiry Patient: KEENA COATES [id number] (Continued) Specimen: [id number] Collected: 08/21/14-0 Received: 08/21/14-1056 (Continued) Procedure Result Verified Site Ova Parasite Concen Full Final (continued) 08/25/14- 1608 Final Result No Ova Parasites seen by Ethyl Acetate Concentration No Cysts or Trophs Seen on Trichrome smear * ML - MAIN LAB ([facility]) . END OF REPORT * ML=Testing performed at Main Lab DEPARTMENT OF PATHOLOGY, [facility] [employer] [place], [place] [address] Wayne Duff M.D. Director [facility] # [id number] 55 RUN DATE: 08/24/14 [facility] LIVE PAGE 1 RUN TIME: 8500 [facility] [address] [place], [place] [address] Specimen Inquiry Name: KEENA COATES : [address]: Alcides Brody MD Acct: [id number] Unit: [id number] AGE: 54 Location: [facility] Re08/21/14 SEX: F Status: REG REF SPEC: [id number] HASEEB: 08/21/14-[address]: Alcides Brody MD REQ: [id number] RECD: 08/21/14 STATUS: RES _ SOURCE: STOOL SPDESC: ORDERED: E.coli O157:H7, Stool Culture, C. diff Amp DNA, O P (Full) QUERIES: Provider Requisition # [id number] Procedure Result Verified Site E.coli O157:H7 Culture [...] performed at Main Lab DEPARTMENT OF PATHOLOGY, [facility] [employer] [place] [address] Wayne Duff M.D. Director [facility] # [id number] RUN DATE: 08/24/14 [facility] LIVE PAGE 2 RUN TIME: [address] [place] [address] Specimen Inquiry Patient: KEENA COATES [id number] (Continued) Specimen: [id number] Collected: 08/21/14-1029 Received: 08/21/14-1056 (Continued) Procedure Result Verified Site Shiga Toxin [...] Full PENDING * ML - MAIN LAB ([facility]) . END OF REPORT * ML=Testing performed at Main Lab DEPARTMENT OF PATHOLOGY, [address], [place], [place] [address] Wayne Duff M.D. Director [facility] # [id number] 56 Effective July 17, 2014 at 12:00pm there is an updated reference range. 57 Because ethnic data is not always readily [...] 15-29 5 Kidney failure <15 (or dialysis) 58 Because ethnic data is not always [...] 5 Kidney failure <15 (or dialysis) 59 FASTING~PATIENT HAD BARIUM BEVERAGE WITH CRYSTALS AT 08:30 AM PRIOR~TO BLOODWORK 60 Because ethnic data is not always readily [...] 15-29 5 Kidney failure <15 (or dialysis) 61 Desirable <150 Borderline high 150-199 High 200-499 Very High >500 62 Desirable <200 Borderline high 200-239 High >239 63 Low <40 Desirable: 40-60 High: >60 64 Desirable <100 Near Optimal 100-129 Borderline high 130-159 High 160-189 Very High >189 65 RUN DATE: 11/03/13 [facility] LAB LIVE PAGE 1 RUN TIME: [address] [place], [place] [address] Specimen Inquiry Name: LILIA,KEENA M : [address]: Tarsha Underwood MD Acct: [id number] Unit: [id number] AGE: 53 Location: [facility] Re10/31/13 SEX: F Status: REG REF SPEC: [id number] HASEEB: 10/31/[address] [facility] [address]: Tarsha Underwood MD REQ: [id number] RECD: 10/31/13 STATUS: SOUT _ ORDERED: IMAGE ANALYSIS, HPV/Thin Prep FINAL DIAGNOSIS Negative for Intraepithelial lesion or Malignancy COMMENTS: Specimen sent to [facility] in [place], [place] on 11/03/13 by [id number] at 1220. Results will be reported separately. [...] was evaluated with the assistance of the AppDynamicsPrep Test Imaging System. Due to cytologic findings at the label maker microscope, comprehensive manual rescreening by a Oil Burner Servicer And Installer may be required. The Pap Smear is [...] performed at Main Lab DEPARTMENT OF PATHOLOGY, [address] [place] [address] Wayne Duff M.D. Director [facility] # [id number] 66 RESULT: Ectocervical/Endocervical 67 The following Other High Risk HPV types were not detected: 31, 33, 35, 39, 45, 51, 52, 56, 58, 59, 66, and 68 Test Performed by: [address] [address] Soil Sort Worker: Jorge Luis Ruiz III, M.D. 68 Normal Range 180 to 914 Indeterminate Range 145 to 180 Deficient Range <145 69 Because ethnic data is not always readily [...] 15-29 5 Kidney failure <15 (or dialysis) 70 RUN DATE: 09/08/13 [facility] LIVE PAGE 1 RUN TIME: [address] [place] [address] Specimen Inquiry Name: KEENA COATES : [address]: Vasyl Richards MD Acct: [id number] Unit: [id number] AGE: 53 Location: ED Re09/06/13 SEX: F Status: DEP ER SPEC: [id number] HASEEB: 09/06/[address]: Patrizia TSAI REQ: [id number] RECD: 09/06/13 STATUS: COMP [facility]TH[facility] DR: Vasyl Underwood MD _ SOURCE: URINE SPDESC: ORDERED: Urine Culture Procedure Result Verified Site Urine Culture Final 09/08/13- 939 ML Organism 1 NORMAL CHAVEZ [place] Count 1-10,000 (Few) CFU/ML END OF REPORT * ML=Testing performed at Main Lab DEPARTMENT OF PATHOLOGY, [address] [place] [address] Wayne Duff M.D. Director [facility] Permit #[id number] 71 FASTING 72 Normal Range 180 to 914 Indeterminate Range 145 to 180 Deficient Range <145 73 -- REFERENCE VALUE -- 25-HYDROXY D TOTAL (D2+D3) Optimum levels in the healthy population are 20-50, patients with bone disease may benefit from higher levels within this range. Test Performed by: [address] [address] Soil Sort Worker: Jorge Luis Ruiz III, M.D. 74 Desirable <150 Borderline high 150-199 High 200-499 Very High >500 75 Desirable <200 Borderline high 200-239 High >239 76 Low <40 Desirable: 40-60 High: >60 77 Desirable <100 Near Optimal 100-129 Borderline high 130-159 High 160-189 Very High >189 78 FASTING 79 FASTING 80 2+ (>10-30 /hpf) 81 RUN DATE: 03/23/13 [facility] LAB LIVE PAGE 1 RUN TIME: [address] [place] [address] Specimen Inquiry Name: KEENA COATES : [address]: Tez Olmstead [facility]- Acct: [id number] Unit: [id number] AGE: 53 Location: LAB Re03/21/13 SEX: F Status: REG REF SPEC: [id number] HASEEB: 03/21/13-[address] [facility] [address]: Tez COWAN REQ: [id number] RECD: 03/21/13 STATUS: CELIA ERNANDEZ DR: Tarsha Underwood MD _ SOURCE: URINE SPDESC: ORDERED: Urine Culture Procedure Result Verified Site Urine Culture Final 03/23/1357 ML Organism 1 NORMAL CHAVEZ [place] Count 75-100,000 (Many) CFU/ML END OF REPORT * ML=Testing performed at Main Lab DEPARTMENT OF PATHOLOGY, [address] [place] [address] Wayne Duff M.D. Director [facility] Permit #[id number] 82 Dipstick not performed due to tech error 83 2+ (>10-30 /hpf) 84 PT IS FASTING 85 HDL Interpretation: Undesirable: High Risk: Less than 40 MG/DL Desirable: Low Risk: Greater than 60 MG/DL 86 LDL Interpretation: Low Risk Optimal Level: LDL Less than 100 MG/DL Near or Above Optimal: LDL 100-129 MG/DL Borderline High Risk: LDL 130-159 MG/DL High Risk: LDL 160-189 MG/DL Very High Risk: LDL Greater than 189 MG/DL 87 Normally menstruating females - Follicular phase 3 - 9 - Mid-cycle peak 4 - 23 - Luteal phase 1 - 6 Postmenopausal females 16 - 114 88 Anion gap measurement may be of limited value in the presence of any alkalosis, especially in a combined acid base disorder. . 89 Because ethnic data is not always readily [...] 15-29 5 Kidney failure <15 (or dialysis) 90 * MALES: < 5.0 MIU/ML NON FEMALES [...] confirmed by an alternate HCG method. . 91 Recommended INR for Patients on Oral Anticoagulants Prophylaxis 2.0 - 3.0 Treatment of thrombosis 2.0 - 3.0 Prevention of embolism 2.0 - 3.0 Prevention of embolism from prosthetic heart valves 2.5 - 3.5 92 DIAGNOSIS,TREATMENT,AND THERAPY MUST BE BASED ON THE INR VALUE ALONE. 93 -- REFERENCE VALUE -- 25-HYDROXY D TOTAL (D2+D3) Optimum levels in the normal population are 25-80 Test Performed by: [place] [address] Soil Sort Worker: Jorge Luis Ruiz III, M.D. 94 If clinically indicated, testing for Hepatitis B Core IgM antibody is necessary to differentiate between acute and past HBV infection. Test Performed by: [facility] Dpt of Lab Med and Pathology [address] [place] [address] Soil Sort Worker: Jorge Luis Ruiz III, M.D. 95 Test Performed by: [facility] Dpt of Lab Med and Pathology [address] [place] [address] Soil Sort Worker: Jorge Luis Ruiz III, M.D. 96 The World Health Organization (WHO) Hepatitis B Immunoglobulin 1st International Reference Preparation (1976): The accepted criteria for immunity to HBV is anti-HBs activity greater than or equal to 10 mIU/mL. An Index Value of 1.00 is equivalent to 10 mIU/mL. Samples with an Index Value of 1.00 or greater are considered reactive (protective) in accordance with the CDC guidelines. 97 CHOLESTEROL INTERPRETATION: Desirable: Less than 200 MG/DL Borderline-High Risk: 200-239 MG/DL High-Risk: 240 MG/DL and over 98 HDL INTERPRETATION: Undesirable: High Risk: Less than 40 MG/DL Desirable: Low Risk: Greater than 60 MG/DL 99 LDL INTERPRETATION: Low Risk Optimal Level: LDL Less than 100 MG/DL Near or Above Optimal: LDL 100-129 MG/DL Borderline High Risk: LDL 130-159 MG/DL High Risk: LDL 160-189 MG/DL Very High Risk: LDL Greater than 189 MG/DL 10 Anion gap measurement may be of limited value in the 0 presence of any alkalosis, especially in a combined acid base disorder. . 10 A metabolite of Naproxen, O-desmethylnaproxen, has been 1 shown to interfere with the [place] method for measuring total bilirubin. Samples from patients who have taken Naproxen have shown spurious elevation in total bilirubin levels. 10 Because ethnic data is not always readily available, 2 this report includes an eGFR for both [...] 15-29 5 Kidney failure <15 (or dialysis) 10 -- REFERENCE VALUE -- 3 25-HYDROXY D TOTAL (D2+D3) Optimum levels in the normal population are 25-80 Test Performed by: [facility] Dpt of Lab Med and Pathology [address] [place] [address] Soil Sort Worker: Jorge Luis Ruiz III, M.D. Procedures Date CPT Code Description Status Comment 03/12/2017 Mammogram Completed 12/21/2015 Mammogram Completed 12/15/2014 Mammogram Completed 02/17/2014 Colonoscopy Completed 11/18/2013 Mammogram Completed 01/31/2012 98981 EKG Tracing & Completed Interpretation 12/26/2011 Mammogram Completed 08/24/[address] Encinas, 2 hyperplastic polyps per [employer] Encounters Type Date Location Provider CPT E/M Dx Office Visit 10/24/2017 2:40p [facility] Lui Samson 63121 M54.2 - Ayla Roberson M25.512 Office Visit 10/17/2017 11:30a [facility] [address] G43.009 R94.02 M54.2 R20.0 Office Visit 08/14/2017 11:00a [facility] Lui Samson 57630 J45.909 Medicine - [place] Selvin Roberson K21.9 Office Visit 07/17/2017 8:40a [facility] Lui Samson 81755 J45.909 Medicine - [address] Karol G47.00 K21.9 Office Visit 07/02/2017 9:45a [facility] [place], [address] Z98.84 [facility] FACS K21.9 Office Visit 04/10/2017 8:00a [facility] Lui Samson M.D. 94964 J06.9 Medicine - [address] M25.571 Office Visit 03/27/2017 2:40p [facility] Lui Samson, 80963 Z01.818 Medicine - [address] Karol N90.3 J06.9 Office Visit 02/13/2017 11:30a [facility] [address] G43.009 R94.02 R42 R13.10 Office Visit 01/30/2017 11:20a [facility] Lui Samson M.D. 35[address] - [address] K21.9 J45.909 E66.9 G47.00 Office Visit 11/03/2016 11:00a [place] [address] R94.02 Services [facility] R42 Office Visit 10/17/2016 9:00a [facility] Lui Samson, 29394 Z00.00 Medicine - [place] Selvin Roberson E78.2 R31.9 E87.6 Office Visit 10/13/2016 2:00p [facility] Alfredo Trevizo, 15092 R94.02 Medicine - [address] Karol,FACP H81.399 E87.6 Office Visit 10/09/2016 1:20p [facility] Lui Samson M.D. 18550 G45.9 Medicine - [address] I10 K21.9 Office Visit 09/05/2016 8:20a [facility] Lui Samson 23457 M77.11 Medicine - [address] Karol M25.512 K21.9 J45.909 Office Visit 07/05/2016 9:20a [facility] [place] [address] M77.9 Office Visit 07/03/2016 9:00a [facility] [place] [address] Z98.84 [facility] K21.9 Office Visit 06/30/2016 2:40p [facility] Alfredo Shahnaz Trevizo, 59391 J45.41 Medicine - [address] M.D.,FACP Office Visit 01/11/2016 7:40a [facility] uLi Samson, 11393 K21.9 Medicine - [address] M.D. R31.9 D69.6 R94.5 G43.019 Office Visit 12/10/2015 2:20p [facility] - Darin Luna, MICHAELLE [address] Office Visit 12/03/2015 10:45a Neurosurgery Services Kevin Keystone, 49139 M54.5 [facility] AT Ronnie Roberson Office Visit 11/09/2015 8:00a [facility] - Lui Samson, [address] M.D. J20.9 Office Visit 11/01/2015 3:00p [facility] - Darin Luna, MICHAELLE [address] R05 Office Visit 09/28/2015 8:00a [facility] Lui Samson, 77793 M51.16 Medicine - [address] M.D. S40.021A R53.83 Z23 Office Visit 08/31/2015 7:40a [facility] Lui Samson, 76728 M51.16 Medicine - [address] M.D. Office Visit 08/17/2015 2:20p [facility] Lui Samson, 71798 M51.16 Medicine - [address] M.D. M25.552 Office Visit 06/04/2015 1:20p [facility] - Alcides Broyd M.D. [address] M54.2 M54.5 Office Visit 04/08/2015 9:20a [facility] Josh Brody [address] M.D. Office Visit 03/02/2015 9:40a [facility] Josh Brody [address] M.D. Office Visit 12/25/2014 4:00p [facility] Josh Brody [address] M.D. Office Visit 11/09/2014 10:30a Neurosurgery Services Kevin Cottrell 42470 724.2 [facility] M.DDoug Office Visit 09/08/2014 3:40p [facility] - Alcides Brody, [address] M.DDoug 535.40 787.20 535.50 Office Visit 08/26/2014 10:00a Neurosurgery Services Kevin Cottrell M.D. 74057 724.2 [facility] Office Visit 08/25/2014 3:20p [facility] Josh Brody M.D. [address] 787.91 724.2 724.8 Office Visit 08/20/2014 11:20a [facility] Alcides Brody M.D. 14429 009.3 - [address] 276.51 787.91 Office Visit 07/29/2014 10:30a Neurosurgery Services Kevin Cottrell 20671 724.2 [facility] M.DDoug Office Visit 06/24/2014 3:30p Neurosurgery Services Kevin Cottrell 17407 724.2 [facility] M.DDoug Office Visit 06/09/2014 2:40p [facility] - Alcides Brody, 36870 493.00 Ayla Roberson 784.0 724.5 722.52 Office Visit 04/24/2014 3:00p [facility] Alcides Brody M.D. 50233 724.5 - [place] 722.91 722.52 Office Visit 03/31/2014 10:20a [facility] Maurilio Torrez, 89642 719.42 - Ayla Roberson V04.81 Office Visit 03/03/2014 4:00p [facility] [place] [address] 465.9 - [place] Office Visit 01/27/2014 11:00a [facility] [place] [address] 723.1 - [place] Office Visit 01/06/2014 11:40a [facility] Johana Ferreira, N.P. 25019 530.81 - [place] Office Visit 10/31/2013 2:00p [facility] Tarsha Underwood M.D. 27405 V76.2 - [place] V76.10 V70.0 296.31 535.00 V45.86 Office Visit 09/30/2013 10:20a [facility] Johana Ferreira, N.P. 35010 528.9 - [place] Office Visit 09/12/2013 1:40p [facility] Tarsha Underwood M.D. 09337 599.70 - [place] 724.5 Office Visit 09/02/2013 11:20a [facility] Johana Ferreira, N.P. 21027 465.9 - [place] 535.00 724.5 Office Visit 06/27/2013 2:40p [facility] - Tarsha Underwood M.D. 50888 722.93 [place] 724.5 Office Visit 05/26/2013 3:00p [facility] - Tarsha Underwood M.D. 26974 722.93 [place] 724.5 Office Visit 03/21/2013 11:40a [facility] - Tarsha Underwood M.D. 62276 724.5 [place] 599.70 719.45 Office Visit 02/03/2013 9:00a [facility] - Tarsha Underwood M.D. 49323 296.31 [place] 724.5 Office Visit 12/18/2012 11:20a [facility] Tarsha Underwood M.D. 85354 724.5 - [place] Office Visit 12/10/2012 3:40p [facility] Johana Ferreira, N.P. 46112 724.5 - [place] Office Visit 08/30/2012 1:40p [facility] Tarsha Underwood M.D. 13638 530.12 - [place] 724.5 296.31 626.8 V70.0 Office Visit 08/05/2012 10:40a [facility] - Tarsha Underwood M.D. 82736 724.5 [place] 296.31 530.12 Office Visit 07/01/2012 2:20p [facility] - Tarsha Underwood M.D. 60336 724.5 [place] 722.93 Office Visit 05/31/2012 2:20p [facility] - Tarsha Underwood M.D. 28237 724.5 [place] Office Visit 04/24/2012 10:40a [facility] - Tarsha Underwood M.D. 03064 722.93 [place] 709.9 Office Visit 04/03/2012 9:20a [facility] - Tarsha Underwood M.D. 27666 722.93 [place] Office Visit 03/27/2012 12:40p [facility] - Tarsha Underwood M.D. 26101 724.5 [place] 722.93 Office Visit 03/15/2012 10:40a [facility] - Tarsha Underwood M.D. 35018 722.93 [place] 724.5 Office Visit 01/31/2012 11:20a [facility] - Tarsha Underwood M.D. 09605 722.93 [place] 493.90 V45.86 296.31 281.9 Office Visit 01/08/2012 9:40a [facility] Tarsha Underwood M.D. 39419 782.3 [place] 724.5 493.90 Office Visit 11/17/2011 4:00p [facility] - Tarsha Underwood M.D. 10589 722.93 [place] 724.5 995.3 Office Visit 11/03/2011 12:40p [facility] Tarsha Underwood M.D. 04171 722.93 [place] Office Visit 10/13/2011 2:00p [facility] Tarsha Underwood M.D. 52458 722.93 [place] 724.5 V45.86 Office Visit 09/13/2011 10:40a [facility] Tarsha Underwood M.D. 19306 722.93 [place] V45.86 Office Visit 07/28/2011 10:40a [facility] Tarsha Underwood M.D. 77045 722.93 [place] 783.1 296.31 789.02 Office Visit 07/11/2011 4:20p [facility] Johana Ferreira, N.P. 11722 724.5 - [place] Office Visit 07/05/2011 1:40p [facility] Tarsha Underwood M.D. 06323 783.1 - [place] Office Visit 06/23/2011 8:40a [facility] Tarsha Underwood M.D. 83270 715.11 - [place] Office Visit 06/09/2011 11:00a [facility] Tarsha Underwood M.D. 21297 296.31 - [place] 719.41 Office Visit 05/10/2011 9:20a DO Not Use [facility] Basic-Ayla Underwood M.D. 03283 296.31 Office Visit 04/26/2011 9:40a DO Not Use Emergency Medical Technician Basic-Ayla Underwood M.D. 51079 296.31 Office Visit 04/12/2011 9:40a DO Not Use Shar[place]-Ayla Underwood M.D. 95495 281.9 V45.86 733.6 790.6 V02.61 Office Visit 03/29/2011 1:40p DO Not Use Emergency Medical Technician Basic-Ayla Underwood M.D. 81147 281.9 807.00 296.31 Plan of Care Future Appointment(s):12/03/2017 9:40 am - Lui Samson M.D. at [facility] - [address]04/15/2018 9:30 am - Parker Reis M.D. at [facility]11/19/2017 8:00 am - Lui Samson M.D. at [facility] - [address]11/01/2017 - Lui Samson M.D.M51.16 Intervertebral disc disorders w radiculopathy, lumbar regionReferral:Kevin Cottrell M.D., Surgery,NeurologicalFollow up:1 systoQ57.2 CervicalgiaComments: Start physical kuqwcgqH89.512 Pain in left shoulderReferral:Quentin Sanders MD, Surgery,Orthopedic
--- OUTSIDE RECORDS SUMMARY | 2017-11-06 16:01 | XMS REPORT ---
:1960 External Reference #:[id number] Author Organization [facility] Address [address] [place] [address] [place] [address] Phone [phone] Care Team Providers Name Role Phone Lui Samson MD Primary Care Physician Unavailable Payers Type Date Identification Numbers Payment Provider Subscriber Commercial Policy Number: [id number] Agustín Coates Group Number: [id number] [address] PayID: [id number] [place] [address] Commercial Effective: Policy Number: Dennis/[employer] Keena Coates 2012 [id number] Medicaid Expires: 2012 PayID: [id number] [address] [address] [place] [address] Commercial Expires: 2012 Policy Number: [id number] Agustín Coates Group Name: CHAS# [id number] [address] PayID: [id number] [place] [address] Problems Date Description Provider Status Onset: 04/12/2011 [...] walks on occ General Hx 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, 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 08/01 Levofloxacin 03/27 Hx Tablets 500mg 10tab once daily J06.9 [place] Josh Grande M.D. 04/10 Rizatriptan 02/13 Hx Tablets 5mg 9tabs 1 at onset G43.009 Morenita Benzoate /2016 Dispers of MD Brad - migraine. 04/10 in 2 hours if needed. do not use more than 2x/week Zolpidem 02/05 Hx Tablets 5mg 30tab 1 tab G47.00 Lui Tartrate s daily at [facility], - bedtime M.D. 07/17 Zolpidem 01/30 Hx Tablets 10mg 30tab 1/2 to 1 G47.00 [place] Tartrate s tab by [place], - mouth [...] by mouth s every day Josh Hollingsworth M.D.,[facility] 10/19 Klor-Con 10 10/13 Hx Tablets ER 10Meq 30tab 1 by mouth s every day Josh Hollingsworth M.D.,[facility] 02/12 Diclofenac 09/05 Hx Gel 1% 100gm apply 2 M77.11 [place] Sodium times Meraryika, - daily M.D. 10/19 [...] Tablets DR 20mg 60tab 1 tab K21.9 [place] Sodium s twice a [place], - day M.D. 02/12 Rizatriptan 01/10 Hx Tablets 10mg 12tab use at G43.019 [place] Benzoate s onset of [place], - headache M.D. 10/13 after 2 h as needed Metoprolol 01/10 Hx Tablets 25mg 60tab 1 by mouth G43.019 [place] Tartrate s twice a [place], - day [...] Hx Tablets 10mg 90tab one by M54.89 [place] HCL s mouth [place], - three M.D. 10/19 times day as needed spasm Asmanex 06/09 Hx Aerosol 220mcg/In 1unit 1 puff po J45.20 Darin [place] 120 h s bid Jeremy VIDEO TECHNICIAN Metered Doses - 11/10 Lasix 05/12 Hx [...] 465.8 Eusebio 12HR s mouth q12 Flores, VIDEO TECHNICIAN - hours 06/09 Omeprazole 01/06 Hx Capsules [...] 2 puffs by Darin e) s mouth Irish, VIDEO TECHNICIAN - mcg/Act every 4 10/19 hours needed [...] 30cap Take 1-2 724.5 s tablets at [place], - night M.D. 06/27 Percocet 12/10 Hx [...] /0000 every day - 10/13 Ranitidine HCL Hx Tablets 75mg 1 daily in Unknown /0000 the - morning 03/27 Immunizations CPT Code Status Date Vaccine Lot # [id number] Given 09/28/2015 Pneumonia Vaccine [id number] Given 03/31/2014 Flu Vaccine Split Virus Preservative Free For [id number] Indiv 3Yr Older Vital Signs Date Vital Result Comment 10/24/2017 Height 65 inches 5'5" Weight 216.00 [...] Color Colorless Urine Appearance Clear Urine Specific [place] 1.004 Low 1.010-1.030 Urine pH 6.0 5-9 [...] Color Straw Urine Appearance Clear Urine Specific [place] 1.012 1.010-1.030 Urine pH 6.0 5-9 Urine [...] 11.27 ng/mL >3.99 Laboratory test 04/14/2015 Cytology Non-Scientific Associate SEE RESULT BELOW 35 finding Laboratory test [...] Color Colorless Urine Appearance Clear Urine Specific [place] 1.017 1.010-1.030 Urine pH 6.0 5-9 Urine [...] Color Straw Urine Appearance Clear Urine Specific [place] 1.011 1.010-1.030 Urine pH 7.0 5-9 Urine [...] 180-914 68 Ua Routine 09/12/2013 Ua Specific [place] 1.020 Ua PH 5 Ua Color yellow [...] Color Yellow Urine Appearance Clear Urine Specific [place] 1.021 1.010-1.030 Urine Esterase 1+ Negative Urine [...] Color Yellow Urine Appearance Clear Urine Specific [place] 1.024 1.010-1.030 Urine Esterase 2+ Negative Urine [...] 0-5 90 Ua Routine 01/31/2012 Ua Specific [place] 1.015 Ua PH 5 Ua Color yellow [...] [address]: Maco Nettles MD Acct: [id number] Unit: [id number] AGE: 57 Location: ED Re08/09/17 SEX: F Status: DEP ER SPEC: [id number] HASEEB: 08/09/[address] [facility] [address]: Maco Netltes MD REQ: [id number] RECD: 08/09/17 STATUS: CELIA ERNANDEZ DR: Lui Samson MD _ SOURCE: URINE SPDESC: ORDERED: Urine Culture Procedure Result Reported Site Urine Culture Final 08/11/17- 0854 ML No Growth (<1,000 CFU/mL) * ML - Main Lab . END OF REPORT DEPARTMENT OF PATHOLOGY, [address] [place] [address] Wayne Duff M.D. Director [facility] # [id number] 2 Because ethnic data is not always [...] 5 Kidney failure <15 (or dialysis) 3 Chief Development Officer: [id number] 4 Because ethnic data is not always [...] 130-159 High: 160-189 Very High: >189 9 [facility] Severe Sepsis and Septic Shock Management [...] 11 99th percentile=0.04 ng/mL Troponin results at [facility] and [facility] are not interchangeable. 12 Desirable <150 Borderline high 150-199 High 200-499 Very High >500 13 Desirable <200 Borderline high 200-239 High >239 14 Low <40 Desirable: 40-60 High: >60 15 Desirable: <100 mg/dL Near Optimal: 100-129 mg/dL Borderline High: 130-159 mg/dL High: 160-189 mg/dL Very High: >189 mg/dL 16 [id number] 17 Because ethnic data is not always [...] 5 Kidney failure <15 (or dialysis) 18 [id number] 19 [id number] 20 Serologic response to B. burgdorferi infection is not detected, but cannot rule out early infection during which low or undetectable antibody levels to B. burgdorferi may be present. If clinically indicated, a new serum specimen should be submitted in 7-14 days. Lipemic Test Performed by: [place] [address] [employer]: Quan Fishman II, M.D., Ph.D. 21 No [...] not reviewed by physician. Test Performed by: [place] [address] [employer]: Quan Fishman II, M.D., Ph.D. 22 Test Performed by: [place] [address] [employer]: Quan Fishman II, M.D., Ph.D. 23 Result in log IU/mL is Undetected The quantification range of this assay is 20 IU/mL to 170,000,000 IU/mL (1.30 log IU/mL to 8.23 log IU/mL). Testing was performed by the CAROL AmpliPrep/CAROL TaqMan HBV test, version 2.0 ([employer] Test Performed by: [place] [address] [employer] Drier: Quan Fishman II, M.D., Ph.D. 24 Test Performed by: [place] [address] [employer]: Quan Fishman II, M.D., Ph.D. 25 If clinically indicated, testing for Hepatitis B Core IgM antibody is necessary to differentiate between acute and past HBV infection. Test Performed by: [place] [address] [employer]: Quan Fishman II, M.D., Ph.D. 26 [id number] 27 This assay does not differentiate between reactivity due to a vaccine-induced immune response or an immune response induced by infection with HBV. 28 [id number] 29 SEE RESULT BELOW Name: KEENA COATES : [address]: Kevin Boyd MD Acct: [id number] Unit: [id number] AGE: 55 Location: [facility] Re01/01/16 SEX: F Status: DEP ER SPEC: [id number] HASEEB: 01/01/16-[address] [facility] [address]: Sara Palacio NP REQ: [id number] RECD: 01/02/16-1306 STATUS: CELIA ERNANDEZ DR: [facility] Lui Samson MD _ SOURCE: URINE SPDESC: ORDERED: Urine Culture COMMENTS: [id number] Procedure Result Reported Site Urine Culture Final 01/03/16- 1457 ML No Growth (<1,000 CFU/mL) * ML - MAIN LAB ([facility]) . END OF REPORT * ML=Testing performed at Main Lab DEPARTMENT OF PATHOLOGY, [address] [place] [address] Wayne Duff M.D. Director [facility] # [id number] 30 [facility] Severe Sepsis and Septic Shock Management Bundle Measure requires all lactic acids initially measuring >2.0 mmol/L be repeated. 31 Reference Range and Interpretation: TnI (ng/mL) Interpretation Less Than 0.03 ng/mL Not supportive of diagnosis of NC 0.03 - 0.50 ng/mL Indeterminate: suggest serial studies if clinically indicated. Greater than 0.5 ng/mL Consistent with diagnosis of NC 32 Because ethnic data is not always [...] [address]: Dwight Brown MD Acct: [id number] Unit: [id number] AGE: 55 Location: LAB Re04/14/15 SEX: F Status: REG REF SPEC: [id number] HASEEB: 04/14/15-[address] [facility] [address]: Dwight Brown MD REQ: [id number] RECD: 04/14/15-7 STATUS: SULTANA ERNANDEZ DR: Alcides Brody MD _ ORDERED: THIN PREP NON G FINAL DIAGNOSIS Urine, voided: Negative for malignant cells. URINE VOID CLINICAL HISTORY Gross hematuria GROSS DESCRIPTION 5 mls of cloudy peach colored urine. Signed (signature on file) Wayne Duff MD 1347 END OF REPORT * ML=Testing performed at Main Lab DEPARTMENT OF PATHOLOGY, [address] [place] [address] Wayne Duff M.D. Director [facility] # [id number] 36 Because ethnic data is not always [...] [address]: Eusebio Matute MD Acct: [id number] Unit: [id number] AGE: 54 Location: ED Re12/23/14 SEX: F Status: DEP ER SPEC: [id number] HASEEB: 12/24/[address]: Gene Godoy DO REQ: [id number] RECD: 12/24/14 STATUS: CELIA ERNANDEZ DR: Alcides Brody MD _ SOURCE: URINE SPDESC: ORDERED: Urine Culture Procedure Result Verified Site Urine Culture Final 12/26/14- 1034 ML Organism 1 NORMAL CHAVEZ [place] Count 25-50,000 (Moderate) CFU/ML * ML - MAIN LAB ([facility]) . END OF REPORT * ML=Testing performed at Main Lab DEPARTMENT OF PATHOLOGY, [address] [place] [address] Wayne Duff M.D. Director [facility] # [id number] 39 SEE RESULT BELOW Name: KEENA COATES : [address]: Eusebio Garcia MD Acct: [id number] Unit: [id number] AGE: 54 Location: [facility] Re12/23/14 SEX: F Status: DEP ER SPEC: [id number] HASEEB: 12/23/14-[address]: Eusebio Garcia MD REQ: [id number] RECD: 12/24/14-1056 STATUS: CELIA ERNANDEZ DR: [facility] Alcides Brody MD _ SOURCE: THROAT SPDESC: ORDERED: Throat Beta Str Procedure Result Verified Site Throat Beta Strep Culture Final 12/26/14- 0850 ML Negative For Group A Beta Streptococcus * ML - MAIN LAB ([facility]) . END OF REPORT * ML=Testing performed at Main Lab DEPARTMENT OF PATHOLOGY, [facility] [employer] [place], [place] [address] Wayne Duff M.D. Director [facility] # [id number] RUN DATE: 09/16/14 [facility] LAB LIVE PAGE 1 RUN TIME: 825 [facility] [address] [place], [place] [address] Specimen Inquiry Name: KEENA COATES: [address]: Quan Guerrero MD Acct: [id number] Unit: [id number] AGE: 54 Location: ED Re09/14/14 SEX: F Status: DEP ER SPEC: [id number] HASEEB: 09/14/14-[address]: Quan Guerrero MD REQ: [id number] RECD: 09/14/14 STATUS: CELIA ERNANDEZ DR: Alcides Brody MD _ SOURCE: URINE SPDESC: ORDERED: Urine Culture Procedure Result Verified Site Urine Culture Final 09/16/14- 08 ML Organism 1 NORMAL CHAVEZ [place] Count 10-25,000 (Moderate) CFU/ML * ML - MAIN LAB ([facility]) . END OF REPORT * ML=Testing performed at Main Lab DEPARTMENT OF PATHOLOGY, [address] [place] [address] Wayne Duff M.D. Director [facility] # [id number] 41 Please note: The following may produce [...] 0.5 ng/mL Consistent with diagnosis of NC 45 Acute inflammation: >10.00 46 Because ethnic [...] of <18.00 are negative. Test Performed by: [place] [address] [employer]: Quan Fishman II, M.D., Ph.D. 49 Results with Index Values of <8.95 are negative. Test Performed by: [facility] [place] [address] [employer] Drier: Quan Fishman II, M.D., Ph.D. 50 Results with Index Values of <36.00 are negative. Test Performed by: [place] [address] [employer]: Quan Fishman II, M.D., Ph.D. 51 RUN DATE: 08/21/14 [facility] LAB LIVE PAGE 1 RUN TIME: [address] [place] [address] Specimen Inquiry Name: KEENA COATES : [address]: Alcides Brody MD Acct: [id number] Unit: [id number] AGE: 54 Location: [facility] Re08/21/14 SEX: F Status: REG REF SPEC: [id number] HASEEB: 08/21/14-[address]: Alcides Brody MD REQ: [id number] RECD: 08/21/14 STATUS: RES _ SOURCE: STOOL SPDESC: ORDERED: E.coli O157:H7, Stool Culture, C. diff Amp DNA, O P (Full) QUERIES: Provider Requisition # [id number] Procedure Result Verified Site E.coli O157:H7 Culture [...] performed at Main Lab DEPARTMENT OF PATHOLOGY, [facility] [employer] [place], [place] [address] Wayne Duff M.D. Director [facility] # [id number] RUN DATE: 08/21/14 [facility] LAB LIVE PAGE 2 RUN TIME: 1440 [facility] [address] [place], [place] [address] Specimen Inquiry Patient: KEENA COATES [id number] (Continued) Specimen: [id number] Collected: 08/21/14-1029 Received: 08/21/14-1056 (Continued) Procedure Result [...] Full PENDING * ML - MAIN LAB ([facility]) . END OF REPORT * ML=Testing performed at Main Lab DEPARTMENT OF PATHOLOGY, [facility] [employer] [place] [address] Wayne Duff M.D. Director [facility] # [id number] 52 REFERENCE RANGE: NOT DETECTED The Entamoeba histolytica antigen EIA test detects only the antigen of the pathogenic E. histolytica; the non-pathogenic E. dispar is not detected. Test Performed by: [employer] [address] [address] [place] [address] 53 RUN DATE: 08/23/14 [facility] LAB LIVE PAGE 1 RUN TIME: 1110 [facility] [address] [place], [place] [address] Specimen Inquiry Name: KEENA COATES : [address]: Alcides Brody MD Acct: [id number] Unit: [id number] AGE: 54 Location: [facility] Re08/21/14 SEX: F Status: REG REF SPEC: [id number] HASEEB: 08/21/14-[address] [facility] [address]: Alcides Brody MD REQ: [id number] RECD: 08/21/14 STATUS: RES _ SOURCE: STOOL SPDESC: ORDERED: E.coli O157:H7, Stool Culture, C. tanner Denny DNA, O P (Full) QUERIES: Provider Requisition # [id number] Procedure Result Verified Site E.coli O157:H7 Culture [...] performed at Main Lab DEPARTMENT OF PATHOLOGY, [address] [place] [address] Wayne Duff M.D. Director [facility] # [id number] RUN DATE: 08/23/14 [facility] LAB LIVE PAGE 2 RUN TIME: [address] [place] [address] Specimen Inquiry Patient: KEENA COATES [id number] (Continued) Specimen: [id number] Collected: 08/21/14-0 Received: 08/21/14 (Continued) Procedure Result Verified Site [...] Parasite Concen Full PENDING * ML - [facility] ([facility]) . END OF REPORT * ML=Testing performed at Main Lab DEPARTMENT OF PATHOLOGY, [facility] [employer] [place], [place] [address] Wayne Duff M.D. Director [facility] # [id number] RUN DATE: 08/25/14 [facility] LAB LIVE PAGE 1 RUN TIME: 1608 [facility] [address] [place], [place] [address] Specimen Inquiry Name: KEENA COATES : [address]: Alcides Brody MD Acct: [id number] Unit: [id number] AGE: 54 Location: [facility] Re08/21/14 SEX: F Status: REG REF SPEC: [id number] HASEEB: 08/21/14-[address] [facility] [address]: Alcides Brody MD REQ: [id number] RECD: 08/21/146746 STATUS: COMP _ SOURCE: STOOL SPDESC: ORDERED: E.coli O157:H7, Stool Culture, C. diff Amp DNA, O P (Full) QUERIES: Provider Requisition # [id number] Procedure Result Verified Site E.coli O157:H7 Culture [...] performed at Main Lab DEPARTMENT OF PATHOLOGY, [facility] [employer] [place], [place] [address] Wayne Duff M.D. Director [facility] # [id number] RUN DATE: 08/25/14 [facility] LAB LIVE PAGE 2 RUN TIME: 1608 [facility] [address] [place], [place] [address] Specimen Inquiry Patient: LILIA,KEENA M [id number] (Continued) Specimen: [id number] Collected: 08/21/14 Received: 08/21/14 (Continued) Procedure Result [...] performed at Main Lab DEPARTMENT OF PATHOLOGY, [facility] [employer] [place], [place] [address] Wayne Duff M.D. Director [facility] # [id number] RUN DATE: 08/25/14 [facility] LAB LIVE PAGE 3 RUN TIME: 1608 [facility] [address] [place], [place] [address] Specimen Inquiry Patient: KEENA COATES [id number] (Continued) Specimen: [id number] Collected: 08/21/14-0 Received: 08/21/14-1056 (Continued) Procedure Result Verified Site Ova Parasite Concen Full Final (continued) 08/25/14- 1607 Final Result No Ova Parasites seen by Ethyl Acetate Concentration No Cysts or Trophs Seen on Trichrome smear * ML - MAIN LAB ([facility]) . END OF REPORT * ML=Testing performed at Main Lab DEPARTMENT OF PATHOLOGY, [facility] [employer] [place] [address] Wayne Duff M.D. Director [facility] # [id number] 55 RUN DATE: 08/24/14 [facility] LAB LIVE PAGE 1 RUN TIME: 1112 [facility] [address] [place], [place] [address] Specimen Inquiry Name: KEENA COATES : [address]: Alcides Brody MD Acct: [id number] Unit: [id number] AGE: 54 Location: [facility] Re08/21/14 SEX: F Status: REG REF SPEC: [id number] HASEEB: 08/21/14-[address]: Alcides Brody MD REQ: [id number] RECD: 08/21/14 STATUS: RES _ SOURCE: STOOL SPDESC: ORDERED: E.coli O157:H7, Stool Culture, C. diff Amp DNA, O P (Full) QUERIES: Provider Requisition # [id number] Procedure Result Verified Site E.coli O157:H7 Culture [...] performed at Main Lab DEPARTMENT OF PATHOLOGY, [facility] [employer] [place] [address] Wayne Duff M.D. Director [facility] # [id number] RUN DATE: 08/24/14 [facility] LAB LIVE PAGE 2 RUN TIME: 111 [facility] [address] [place], [place] [address] Specimen Inquiry Patient: KEENA COATES [id number] (Continued) Specimen: [id number] Collected: 08/21/14 Received: 08/21/14-1056 (Continued) Procedure Result [...] Full PENDING * ML - MAIN LAB ([facility]) . END OF REPORT * ML=Testing performed at Main Lab DEPARTMENT OF PATHOLOGY, [address] [place] [address] Wayne Duff M.D. Director [facility] # [id number] 56 Effective July 17, 2014 at 12:00pm [...] Very High >189 65 RUN DATE: 11/03/13 [facility] LAB LIVE PAGE 1 RUN TIME: 1964 [address] [place], [place] [address] Specimen Inquiry Name: KEENA COATES : [address]: Tarsha Underwood MD Acct: [id number] Unit: [id number] AGE: 53 Location: [facility] Re10/31/13 SEX: F Status: REG REF SPEC: [id number] HASEEB: 10/31/[address]: Tarsha Underwood MD REQ: [id number] RECD: 10/31/13 STATUS: SOUT _ ORDERED: IMAGE ANALYSIS, HPV/Thin Prep FINAL DIAGNOSIS Negative for Intraepithelial lesion or Malignancy COMMENTS: Specimen sent to [facility] in [place], [place] on 11/03/13 by [id number] at 1220. Results will be reported separately. A. Ectocervical/Endocervical Specimen Adequacy: Satisfactory of evaluation Transformation zone component cannot be definitely identified due to presence of atrophy or other hormonal changes Patient Information: HPV: High risk HPV DNA testing regardless of pap results. Actual Specimen Date: 10/31/13 LMP If Unknown: 2011 Signed (signature on file) Valeria GRAY Martinez (ASCP) 11/03/13 1229 This Pap test was evaluated with the assistance of the TekoraPrep Test Imaging System. Due to cytologic findings at the career development engineer microscope, comprehensive manual rescreening by a Geophysical Prospecting Permit Agent may be required. The Pap Smear is [...] performed at Main Lab DEPARTMENT OF PATHOLOGY, [address] [place] [address] Wayne Duff M.D. Director [facility] # [id number] 66 RESULT: Ectocervical/Endocervical 67 The following Other High Risk HPV types were not detected: 31, 33, 35, 39, 45, 51, 52, 56, 58, 59, 66, and 68 Test Performed by: [place] [id number] [employer] D[employer]: Jorge Luis Ruiz III, M.D. 68 Normal [...] <15 (or dialysis) 70 RUN DATE: 09/08/13 [facility] LAB LIVE PAGE 1 RUN TIME: [address] [place] [address] Specimen Inquiry Name: KEENA COATES : [address]: Vasyl Richards MD Acct: [id number] Unit: [id number] AGE: 53 Location: ED Re09/06/13 SEX: F Status: DEP ER SPEC: [id number] HASEEB: 09/06/[address]: Patrizia TSAI REQ: [id number] RECD: 09/06/13 STATUS: CELIA ERNANDEZ DR: Vasyl Underwood MD _ SOURCE: URINE SPDESC: ORDERED: Urine Culture Procedure Result Verified Site Urine Culture Final 09/08/13- 09 ML Organism 1 NORMAL CHAVEZ [place] Count 1-10,000 (Few) CFU/ML END OF REPORT * ML=Testing performed at Main Lab DEPARTMENT OF PATHOLOGY, [address] [place] [address] Wayne Duff M.D. Director [facility] Permit #[id number] 71 FASTING 72 Normal Range 180 to 914 Indeterminate Range 145 to 180 Deficient Range <145 73 -- REFERENCE VALUE -- 25-HYDROXY D TOTAL (D2+D3) Optimum levels in the healthy population are 20-50, patients with bone disease may benefit from higher levels within this range. Test Performed by: [facility] - [address] [address] [employer] Drier: Jorge Luis Ruiz III, M.D. 74 Desirable <150 Borderline high 150-199 High 200-499 Very High >500 75 Desirable <200 Borderline high 200-239 High >239 76 Low <40 Desirable: 40-60 High: >60 77 Desirable <100 Near Optimal 100-129 Borderline high 130-159 High 160-189 Very High >189 78 FASTING 79 FASTING 80 2+ (>10-30 /hpf) 81 RUN DATE: 03/23/13 [facility] LAB LIVE PAGE 1 RUN TIME: [address] [place] [address] Specimen Inquiry Name: KEENA COATES : [address]: Tez Olmstead RPA- Acct: [id number] Unit: [id number] AGE: 53 Location: LAB Re03/21/13 SEX: F Status: REG REF SPEC: [id number] HASEEB: 03/21/13-[address] [facility] [address]: Tez COWAN REQ: [id number] RECD: 03/21/135 STATUS: CELIA ERNANDEZ DR: Tarsha Underwood MD _ SOURCE: URINE SPDESC: ORDERED: Urine Culture Procedure Result Verified Site Urine Culture Final 03/23/13- 0857 ML Organism 1 NORMAL CHAVEZ [place] Count 75-100,000 (Many) CFU/ML END OF REPORT * ML=Testing performed at Main Lab DEPARTMENT OF PATHOLOGY, [address] [place] [address] Wayne Duff M.D. Director [facility] Permit #[id number] 82 Dipstick not performed due to tech [...] normal population are 25-80 Test Performed by: [facility] [address] [place] [address] Pearl [employer] Drier: Jorge Luis Ruiz III, M.D. 94 If clinically indicated, testing for Hepatitis B Core IgM antibody is necessary to differentiate between acute and past HBV infection. Test Performed by: [facility] Dpt of Lab Med and Pathology [address] [place] [address] Pearl Gl[employer] Drier: Jorge Luis Ruiz III, M.D. 95 Test Performed by: [facility] of [facility] Med [facility] Pathology [address] [place] [address] [employer] Drier: Jorge Luis Ruiz III, M.D. 96 The [...] been 1 shown to interfere with the Jendrassik-Amish method [...] normal population are 25-80 Test Performed by: [facility] D[facility] of Lab Med and Pathology [address] [place], [place] [id number] [employer] Drier: Jorge Luis Ruiz III, M.D. Procedures Date CPT Code Description Status Comment 03/12/2017 Mammogram Completed 12/21/2015 Mammogram Completed 12/15/2014 Mammogram Completed 02/17/2014 Colonoscopy Completed 11/18/2013 Mammogram Completed 01/31/2012 43387 EKG Tracing & Completed Interpretation 12/26/2011 Mammogram Completed 08/24/[address] Encinas, 2 hyperplastic polyps per [employer] Encounters Type Date Location Provider CPT E/M Dx Office Visit 08/14/2017 [facility] Gayatri Samson [address] J45.909 11:[address], M.D. K21.9 Office Visit 07/17/2017 8:40a [facility] Gayatri Samson [address], M.D. G47.00 K21.9 Office Visit 07/02/2017 9:45a [facility] [place], [address] Z98.84 [facility] FACS K21.9 Office Visit 04/10/2017 8:00a Sharath Samson M.D. 37000 J06.9 Medicine - [place] M25.571 Office Visit 03/27/2017 2:40p Sharath Samson [address], M.D. N90.3 J06.9 Office Visit 02/13/2017 11:30a [facility] [address] G43.009 R94.02 R42 R13.10 Office Visit 01/30/2017 11:20a [facility] Internal Medicine Lui Samson M.D. 82812 I10 - [address] K21.9 J45.909 E66.9 G47.00 Office Visit 11/03/2016 11:00a [facility] [address] R94.02 Services Of [facility] R42 Office Visit 10/17/2016 9:00a [facility] Internal Lui Samson, 52308 Z00.00 Medicine - [address] Karol E78.2 R31.9 E87.6 Office Visit 10/13/2016 2:00p [facility] Internal Alfredo Trevizo, 60127 R94.02 Medicine - [place] Selvin Roberson,FACP H81.399 E87.6 Office Visit 10/09/2016 1:20p [facility] Internal Lui Samson M.D. 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.9 Office Visit 06/30/2016 2:40p [facility] Internal Alfredo Trevizo, 01860 J45.41 Medicine - [place] Selvin Roberson,FAC Office Visit 01/11/2016 7:40a [facility] Internal Lui Samson 00886 K21.9 Medicine - [address] Karol R31.9 D69.6 R94.5 G43.019 Office Visit 12/10/2015 2:20p [facility] [place] [address] Office Visit 12/03/2015 10:45a Neurosurgery Services Kevin Cottrell, 53900 M54.5 Of [facility] AT [place] Deanne.Shahnaz Office Visit 11/09/2015 8:00a [facility] Internal Medicine - Lui Samson, [address] M.D. J20.9 Office Visit 11/01/2015 3:00p [facility] Internal Medicine - Darin Luna, VIDEO TECHNICIAN [address] R05 Office Visit 09/28/2015 8:00a [facility] Internal [place], 72304 M51.16 Medicine - [address] M.D. S40.021A R53.83 Z23 Office Visit 08/31/2015 7:40a [facility] Internal Lui [place], 39766 M51.16 Medicine - [address] M.D. Office Visit 08/17/2015 2:20p [facility] Internal Lui Samson, 96671 M51.16 Medicine - [address] M.D. M25.552 Office Visit 06/04/2015 1:20p [facility] Internal Medicine - Alcides Brody M.D. [address] M54.2 M54.5 Office Visit 04/08/2015 9:20a [facility] Internal Medicine - Alcides Brody, [address] M.D. Office Visit 03/02/2015 9:40a [facility] Internal Medicine Alcides Brody, [address] M.D. Office Visit 12/25/2014 4:00p [facility] Internal Medicine Josh Brody [address] M.D. Office Visit 11/09/2014 10:30a Neurosurgery Services Kevin Cottrell 58824 724.2 Of [facility] M.DDoug Office Visit 09/08/2014 3:40p [facility] Internal Medicine Josh Brody [address] M.D. 535.40 787.20 535.50 Office Visit 08/26/2014 10:00a Neurosurgery Services Kevin Cottrell M.D. 85373 724.2 Of [facility] Office Visit 08/25/2014 3:20p [facility] Internal Medicine Josh Brody M.D. [address] 787.91 724.2 724.8 Office Visit 08/20/2014 11:20a [facility] Internal Medicine Alcides Brody M.D. 30798 009.3 - [address] 276.51 787.91 Office Visit 07/29/2014 10:30a Neurosurgery Services Kevin Cottrell, 36981 724.2 Of [facility] M.DDoug Office Visit 06/24/2014 3:30p Neurosurgery Services Kevin Cottrell, 27775 724.2 Of [facility] M.D. Office Visit 06/09/2014 2:40p [facility] Internal Medicine - Alcides Brody, 59505 493.00 Ayla Roberson 784.0 724.5 722.52 Office Visit 04/24/2014 3:00p [facility] Internal Medicine Alcides Brody M.D. 90787 724.5 - [place] 722.91 722.52 Office Visit 03/31/2014 10:20a [facility] Internal Medicine Maurilio Torrez, 51403 719.42 - Ayla Roberson V04.81 Office Visit 03/03/2014 4:00p [facility] [place] [address] 465.9 - [place] Office Visit 01/27/2014 11:00a [facility] [place] [address] 723.1 - [place] Office Visit 01/06/2014 11:40a [facility] Internal Medicine Johana Ferreira, N.P. 33757 530.81 - [place] Office Visit 10/31/2013 2:00p [facility] Internal Medicine Tarsha Underwood M.D. 41114 V76.2 - [place] V76.10 V70.0 296.31 535.00 V45.86 Office Visit 09/30/2013 10:20a [facility] Internal Medicine Johana Ferreira, N.P. 26279 528.9 - [place] Office Visit 09/12/2013 1:40p [facility] Internal Medicine Tarsha Underwood M.D. 10669 599.70 - [place] 724.5 Office Visit 09/02/2013 11:20a [facility] Internal Medicine Johana Ferreira, N.P. 18641 465.9 - [place] 535.00 724.5 Office Visit 06/27/2013 2:40p [facility] Internal Medicine - Tarsha Underwood M.D. 12630 722.93 [place] 724.5 Office Visit 05/26/2013 3:00p [facility] Internal Medicine - Tarsha Underwood M.D. 33582 722.93 [place] 724.5 Office Visit 03/21/2013 11:40a [facility] Internal Medicine - Tarsha Underwood M.D. 52931 724.5 [place] 599.70 719.45 Office Visit 02/03/2013 9:00a [facility] Internal Medicine - Tarsha Underwood M.D. 12148 296.31 [place] 724.5 Office Visit 12/18/2012 11:20a [facility] Internal Medicine Tarsha Underwood M.D. 19404 724.5 - [place] Office Visit 12/10/2012 3:40p [facility] Internal Medicine Johana Ferreira N.PDoug 47119 724.5 - [place] Office Visit 08/30/2012 1:40p [facility] Internal Medicine Tarsha Underwood M.D. 68025 530.12 - [place] 724.5 296.31 626.8 V70.0 Office Visit 08/05/2012 10:40a [facility] Internal Medicine - Tarsha Underwood M.D. 86938 724.5 [place] 296.31 530.12 Office Visit 07/01/2012 2:20p [facility] Internal Medicine - Tarsha Underwood M.D. 03143 724.5 [place] 722.93 Office Visit 05/31/2012 2:20p [facility] Internal Medicine - Tarsha Underwood M.D. 61687 724.5 [place] Office Visit 04/24/2012 10:40a [facility] Internal Medicine - Tarsha Underwood M.D. 60749 722.93 [place] 709.9 Office Visit 04/03/2012 9:20a [facility] Internal Medicine - Tarsha Underwood M.D. 98715 722.93 [place] Office Visit 03/27/2012 12:40p [facility] Internal Medicine - Tarsha Underwood M.D. 36735 724.5 [place] 722.93 Office Visit 03/15/2012 10:40a [facility] Internal Medicine - Tarsha Underwood M.D. 54357 722.93 [place] 724.5 Office Visit 01/31/2012 11:20a [facility] Internal Medicine - Tarsha Underwood M.D. 38159 722.93 [place] 493.90 V45.86 296.31 281.9 Office Visit 01/08/2012 9:40a [facility] Internal Medicine - Tarsha Underwood M.D. 39830 782.3 [place] 724.5 493.90 Office Visit 11/17/2011 4:00p [facility] Internal Medicine - Tarsha Underwood M.D. 31520 722.93 [place] 724.5 995.3 Office Visit 11/03/2011 12:40p [facility] Internal Medicine - Tarsha Underwood M.D. 48951 722.93 [place] Office Visit 10/13/2011 2:00p [facility] Internal Medicine - Tarsha Underwood M.D. 60114 722.93 [place] 724.5 V45.86 Office Visit 09/13/2011 10:40a [facility] Internal Medicine - Tarsha Underwood M.D. 70370 722.93 [place] V45.86 Office Visit 07/28/2011 10:40a [facility] Internal Medicine - Tarsha Underwood M.D. 72967 722.93 [place] 783.1 296.31 789.02 Office Visit 07/11/2011 4:20p [facility] Internal Medicine Johana Ferreira, N.P. 82173 724.5 - [place] Office Visit 07/05/2011 1:40p [facility] Internal Medicine Tarsha Underwood M.D. 39949 783.1 - [place] Office Visit 06/23/2011 8:40a [facility] Internal Medicine Tarsha Underwood M.D. 51244 715.11 - [place] Office Visit 06/09/2011 11:00a [facility] Internal Medicine Tarsha Underwood M.D. 80165 296.31 - [place] 719.41 Office Visit 05/10/2011 9:20a DO Not Use Film Rental Clerk-[place] Tarsha Underwood M.D. 90203 296.31 Office Visit 04/26/2011 9:40a DO Not Use Film Rental Clerk-Ayla Underwood M.D. 94655 296.31 Office Visit 04/12/2011 9:40a DO Not Use Ericka Underwood M.D. 46899 281.9 V45.86 733.6 790.6 V02.61 Office Visit 03/29/2011 1:40p DO Not Use Ericka Underwood M.D. 30560 281.9 807.00 296.31 Plan of Care Future Appointment(s):04/15/2018 9:30 am - Parker Reis M.D. at [facility]11/19/2017 8:00 am - Lui Samson M.D. at [facility] Internal Medicine - [address]10/24/2017 - Lui Samson M.D.M54.2 CervicalgiaNew Medication:Hydrocodone-Acetaminophen 5-325 mgNew Therapy: Physical TherapyFollow up:as axzwbhbsqW42.512 Pain in left shoulderNew Therapy: Physical Therapy
--- OUTSIDE RECORDS SUMMARY | 2017-11-06 16:03 | XMS REPORT ---
:1960 External Reference #:[id number] Author Organization [facility] Address [address] [address] Phone [phone] Care Team Providers Name Role Phone Lui Samson MD Primary Care Physician Unavailable Payers Type Date Identification Numbers Payment Provider Subscriber Commercial Policy Number: [id number] Agustín Coates Group Number: [id number] [address] PayID: [id number] [place] [address] Commercial Effective: Policy Number: Dennis/[employer] Keena Coates 2012 [id number] Medicaid Expires: 2012 PayID: [id number] [address] [address] [place] [address] Commercial Expires: 2012 Policy Number: [id number] Agustín Coates Group Name: CHAS# [id number] [address] PayID: [id number] [place] [address] Problems Date Description Provider Status Onset: 04/12/2011 [...] walks on occ General Hx Text Formed [employer], but not employed secondary to back injury [...] Form Strength Qnty SIG Indications Ordering Provider Omeprazole 08/[address] 20mg 30cap 1 by mouth K21.9 s every day Pachikara, 1 hr M.D. before breakfast Fexofenadine HCL 08/01 Active Tablets 180mg 30tab once daily s Karol Samson Zolpidem 07/17 Active Tablets 5mg 30tab 1 tab G47.00 Tar s daily at [facility], bedtime M.D. Dulera 07/17 Active Aerosol 200-5mcg/ 8.800 2 puff J45.909 Act gm twice a Pachikara, day M.D. Famotidine 01/30 Active Tablets 40mg 30tab 1 by mouth K21.9 s every day Pachikara, 1 hour M.D. after dinner Ventolin HFA 01/30 Active Aerosol 108(90Bas 8gm 2 puffs by J45.909 e) mouth four Pachikara, mcg/Act times a M.D. 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 Handle disease Jobst Trouser 01/07 Active Misc 1Pair 1 pair prn 782.3 Eusebio 8-15MMHG/Knee /2011 to lower Flores, [employer]UD[employer] High/Women/Mediu legs m Citalopram Active Tablets 20mg 30tab 1 every Lui Hydrobromide / s day Karol Samson Tylenol [...] Hx Tablets 500mg 10tab once daily J06.9 Josh Grande M.D. 04/10 Rizatriptan 02/13 Hx Tablets 5mg 9tabs 1 at onset G43.009 Morenita Benzoate /2016 Dispers of MD Brad - migraine. 04/10 in 2 hours if needed. do not use more than 2x/week Zolpidem 02/05 Hx Tablets 5mg 30tab 1 tab G47.00 Lui Tartrate s daily at [place] - bedtime M.DDoug 07/17 Zolpidem 01/30 Hx Tablets 10mg 30tab [...] mouth Alfredo s every day Josh Hollingsworth M.D.,[facility] 10/19 Klor-Con 10 10/13 Hx Tablets ER 10Meq 30tab 1 by mouth s every day Josh Hollingsworth M.D.,[facility] 02/12 Diclofenac 09/05 Hx Gel 1% 100gm apply 2 M77.11 [place] Sodium times [place], - daily M.D. 10/19 Meloxicam 09/05 Hx Tablets 15mg 30tab once daily M77.11 s with food [place], - M.D. 10/19 Ibuprofen 07/05 Hx Tablets 400mg 90tab 1 tab by M79.642 Darin s mouth MICHAELLE Luna - every 6- 8 three times a day as needed: take w/ food Clarithromycin 06/30 Hx Tablets 500mg 14tab 1 by mouth s twice a Shahnaz Trevizo, - day for 7 M.DDoug,[facility] Cheratussin ac 06/30 Hx Syrup 100-10mg/ 236ml 10 5ML milliliter Shahnaz Trevizo, - s by mouth M.DDoug,[facility] 10/13 four times a day as needed Pantoprazole 01/[address] 20mg 60tab 1 tab K21.9 [place] Sodium s twice a [place], - day M.D. 02/12 Rizatriptan 01/10 Hx Tablets 10mg 12tab use at G43.019 [place] Benzoate s onset of Pachikara, - headache M.D. 10/13 after 2 h as needed Metoprolol 01/10 Hx Tablets 25mg 60tab 1 by mouth G43.019 Lui Tartrate s twice a Pachikara, - day M.D. 07/02 Sumatriptan 12/31 Hx Tablets 25mg 9tabs 1 tab Other Q8hrs prn Ordering - migraine Provider 01/10 Macrobid 12/31 Hx Capsules 100mg 9caps 1 tab by Other mouth Ordering - twice a Provider 01/05 day x days Hydrocortisone 12/31 Hx Ointment 0.2% 15gm apply to Other rash bid x Ordering - 2 weeks [...] Hx Tablets 10mg 90tab one by M54.89 [place] HCL s mouth Pachikara, - three M.D. 10/19 times day as needed spasm Asmanex 06/09 Hx Aerosol 220mcg/In 1unit 1 puff po J45.20 Darin Twisthaler 120 h s bid MICHAELLE Luna Metered [...] tab by 465.8 12HR s mouth q12 Sandra DIRECTOR [employer] STUDENT AFFAIRS - hours 06/09 Omeprazole 01/[address] 20mg 30cap 1 by mouth 530.81 s every day Varn, N.P. - 09/08 Naproxen 09/12 Hx Tablets 375mg 60tab take 1 719.42 s tablet Underwood, - twice M.D. 03/31 daily for pain control Ranitidine HCL 09/02 Hx Capsules 150mg 60cap one 535.00 Johana /2014 s capsule Varn, N.P. - every 12 Iron 06/27 Hx Tablets 325(65Fe) 90tab 1 po qd mg s Kj, - M.D. 06/27 Proair HFA 06/27 Hx Aerosol 108(90Bas 1unit 2 puffs by Darin e) s mouth Tamazight, [employer] - mcg/Act every 4 10/19 hours needed Cyclobenzaprine 06/27 Hx Tablets 5mg 60tab Take 1-2 722.93 Tasrha HCL s tablets at Underwood, - night for M.D. 04/24 back pain Gabapentin 06/27 Hx Capsules 100mg 90cap take 1 M54.89 Alcides s tablet Brody, - three to M.D. [...] Hx Suspension 1GM/10ML 420ml take 2 530.12 teaspooncameron Underwood, - ls by Karol 09/16 mouth times a day before meals [...] HCL 03/15 Hx Tablets 50mg 30tab take 2 722.93 Tarsha s to 1 Kj, - tablet M.D. [...] 30tab 1 po qd 296.31 Tarsha Hydrobromide /2011 s Kj, - M.D. 09/02 Citalopram 05/10 Hx Tablets 10mg [...] 1000Unit 90tab 1 po qd V45.86 s Kj - M.D. 09/12 Multivitamins 04/12 Hx Tablets 90tab 1 po qd V45.86 s jK - M.D. 05/10 Calcium Citrate 04/12 Hx Tablets 950mg 180ta Take 2 V45.86 bs tablets Kj, - twice M.D. 09/12 Iron Supplement 03/29 Hx Tablets 375mg po qd Kj, - M.D. 04/12 Iron 03/29 Hx Tablets 325(65Fe) 60tab 1 tablet 281.9 mg s by mouth Kj, - twice M.D. 04/26 Ambien Hx Tablets 5mg 30tab 1 po Unknown /0000 s tablet at - bedtime 01/07 Trazodone HCL Hx Tablets 50mg 30tab take 1/2 Unknown /0000 s tablet at - bedtime, 09/12 1 time Vicodin Hx Tablets 5-500mg 30tab 1-2 by Unknown /0000 s mouth - every 4-6 /2011 needed for pain Prilosec Hx Capsules DR [...] 4 hrs - prn pain 03/15 Diazepam 00 Hx Tabs 5mg 1 po qd Unknown /0000 - 04/03 Aspirin 00/ Hx Chewtabs 81mg 30uni does not Unknown Childrens /0000 ts take. - 08/[address] 40mg 90cap 1 po qd Unknown /0000 s - 12/10 Percocet 00 Hx Tablets 5-325mg 60tab 1-2 by Unknown [...] /0000 USINGonce - a day 10/13 Vitamin 00 Hx Tablets 1 by mouth Unknown B-Complex /0000 every day - 10/13 Ranitidine HCL 00 Hx Tablets 75mg 1 daily in Unknown /0000 the - morning 03/27 Immunizations CPT Code Status Date Vaccine Lot # 53905 Given 09/28/2015 Pneumonia Vaccine [id number] Given 03/31/2014 Flu Vaccine Split Virus Preservative Free For 189914 Indiv 3Yr Older Vital Signs Date Vital Result Comment 10/17/2017 Height 65 inches 5'5" Weight 220.38 [...] Color Colorless Urine Appearance Clear Urine Specific [place] 1.004 Low 1.010-1.030 Urine pH 6.0 5-9 [...] Color Straw Urine Appearance Clear Urine Specific [place] 1.012 1.010-1.030 Urine pH 6.0 5-9 Urine [...] 11.27 ng/mL >3.99 Laboratory test 04/14/2015 Cytology Non-[place] Scarfer Tender SEE RESULT BELOW 35 finding Laboratory test [...] Color Colorless Urine Appearance Clear Urine Specific [place] 1.017 1.010-1.030 Urine pH 6.0 5-9 Urine [...] Color Straw Urine Appearance Clear Urine Specific [place] 1.011 1.010-1.030 Urine pH 7.0 5-9 Urine [...] 180-914 68 Ua Routine 09/12/2013 Ua Specific [place] 1.020 Ua PH 5 Ua Color yellow [...] Color Yellow Urine Appearance Clear Urine Specific [place] 1.021 1.010-1.030 Urine Esterase 1+ Negative Urine [...] Color Yellow Urine Appearance Clear Urine Specific [place] 1.024 1.010-1.030 Urine Esterase 2+ Negative Urine [...] 0-5 90 Ua Routine 01/31/2012 Ua Specific [place] 1.015 Ua PH 5 Ua Color yellow [...] [address]: Maco Nettles MD Acct: [id number] Unit: [id number] AGE: 57 Location: ED Re08/09/17 SEX: F Status: DEP ER SPEC: [id number] HASEEB: 08/09/17-[address] [facility] [address]: Maco Nettles MD REQ: [id number] RECD: 08/09/17 STATUS: COMP [facility] DR: Lui Samson MD _ SOURCE: URINE SPDESC: ORDERED: Urine Culture Procedure Result Reported Site Urine Culture Final 08/11/17- 853 ML No Growth (<1,000 CFU/mL) * ML - Main Lab . END OF REPORT DEPARTMENT OF PATHOLOGY, [address] [place] [address] Wayne Duff M.D. Director [facility] # [id number] 2 Because ethnic data is not always [...] 5 Kidney failure <15 (or dialysis) 3 Life Assurance Representative: [id number] 4 Because ethnic data is not always [...] 11 99th percentile=0.04 ng/mL Troponin results at [facility] and [facility] are not interchangeable. 12 Desirable <150 Borderline high 150-199 High 200-499 Very High >500 13 Desirable <200 Borderline high 200-239 High >239 14 Low <40 Desirable: 40-60 High: >60 15 Desirable: <100 mg/dL Near Optimal: 100-129 mg/dL Borderline High: 130-159 mg/dL High: 160-189 mg/dL Very High: >189 mg/dL 16 [id number] 17 Because ethnic data is not always [...] 5 Kidney failure <15 (or dialysis) 18 [id number] 19 [id number] 20 Serologic response to B. burgdorferi infection is not detected, but cannot rule out early infection during which low or undetectable antibody levels to B. burgdorferi may be present. If clinically indicated, a new serum specimen should be submitted in 7-14 days. Lipemic Test Performed by: [address] [address] Military Science Teacher: Quan Fishman II, M.D., Ph.D. 21 No [...] not reviewed by physician. Test Performed by: [place] [address] Military Science Teacher: Quan Fishman II, M.D., Ph.D. 22 Test Performed by: [place] [address] Military Science Teacher: Quan Fishman II, M.D., Ph.D. 23 Result in log IU/mL is Undetected The quantification range of this assay is 20 IU/mL to 170,000,000 IU/mL (1.30 log IU/mL to 8.23 log IU/mL). Testing was performed by the CAROL AmpliPrep/CAROL TaqMan HBV test, version 2.0 ([employer] Test Performed by: [place] [address] Military Science Teacher: Quan Fishman II, M.D., Ph.D. 24 Test Performed by: [place] [address] Military Science Teacher: Quan Fishman II, M.D., Ph.D. 25 If clinically indicated, testing for Hepatitis B Core IgM antibody is necessary to differentiate between acute and past HBV infection. Test Performed by: [place] [address] Military Science Teacher: Quan Fishman II, M.D., Ph.D. 26 [id number] 27 This assay does not differentiate between reactivity due to a vaccine-induced immune response or an immune response induced by infection with HBV. 28 [id number] 29 SEE RESULT BELOW Name: KEENA COATES : [address]: Kevin Boyd MD Acct: [id number] Unit: [id number] AGE: 55 Location: [facility] Re01/01/16 SEX: F Status: DEP ER SPEC: [id number] HASEEB: 01/01/16-[address] [facility] [address]: Sara Palacio NP REQ: [id number] RECD: 01/02/16-1306 STATUS: CELIA ERNANDEZ DR: [facility] Lui Samson MD _ SOURCE: URINE SPDESC: ORDERED: Urine Culture COMMENTS: [id number] Procedure Result Reported Site Urine Culture Final 01/03/16- 1457 ML No Growth (<1,000 CFU/mL) * ML - MAIN LAB ([facility]) . END OF REPORT * ML=Testing performed at Main Lab DEPARTMENT OF PATHOLOGY, [address] [place] [address] Wayne Duff M.D. Director [facility] # [id number] 30 [facility] Severe Sepsis and Septic Shock Management Bundle Measure requires all lactic acids initially measuring >2.0 mmol/L be repeated. 31 Reference Range and Interpretation: TnI (ng/mL) Interpretation Less Than 0.03 ng/mL Not supportive of diagnosis of OK 0.03 - 0.50 ng/mL Indeterminate: suggest serial studies if clinically indicated. Greater than 0.5 ng/mL Consistent with diagnosis of OK 32 Because ethnic data is not always [...] Range <145 35 SEE RESULT BELOW Name: LILIAKEENA M : [address]: Dwight Brown MD Acct: [id number] Unit: [id number] AGE: 55 Location: LAB Re04/14/15 SEX: F Status: REG REF SPEC: [id number] HASEEB: 04/14/[address] [facility] [address]: Dwight Brown MD REQ: [id number] RECD: 04/14/15 STATUS: SULTANA ERNANDEZ DR: Alcides Brody MD _ ORDERED: THIN PREP NON G FINAL DIAGNOSIS Urine, voided: Negative for malignant cells. URINE VOID CLINICAL HISTORY Gross hematuria GROSS DESCRIPTION 5 mls of cloudy peach colored urine. Signed (signature on file) Wayne Duff MD [id number] END OF REPORT * ML=Testing performed at Main Lab DEPARTMENT OF PATHOLOGY, [address] [place] [address] Wayne Duff M.D. Director [facility] # [id number] 36 Because ethnic data is not always [...] [address]: Eusebio Matute MD Acct: [id number] Unit: [id number] AGE: 54 Location: ED Re12/23/14 SEX: F Status: DEP ER SPEC: [id number] HASEEB: 12/24/[address]: Gene Godoy DO REQ: [id number] RECD: 12/24/14 STATUS: CELIA ERNANDEZ DR: Alcides Brody MD _ SOURCE: URINE SPDESC: ORDERED: Urine Culture Procedure Result Verified Site Urine Culture Final 12/26/14- 1034 ML Organism 1 NORMAL CHAVEZ [place] Count 25-50,000 (Moderate) CFU/ML * ML - MAIN LAB ([facility]) . END OF REPORT * ML=Testing performed at Main Lab DEPARTMENT OF PATHOLOGY, [address] [place] [address] Wayne Duff M.D. Director [facility] # [id number] 39 SEE RESULT BELOW Name: LILIAKEENA M : [address]: Eusebio Garcia MD Acct: [id number] Unit: [id number] AGE: 54 Location: [facility] Re12/23/14 SEX: F Status: DEP ER SPEC: [id number] HASEEB: 12/23/[address] [facility] [address]: Eusebio Garcia MD REQ: [id number] RECD: 12/24/14 STATUS: CELIA ERNANDEZ DR: [facility] Alcides Brody MD _ SOURCE: THROAT SPDESC: ORDERED: Throat Beta Str Procedure Result Verified Site Throat Beta Strep Culture Final 12/26/14- 0850 ML Negative For Group A Beta Streptococcus * ML - MAIN LAB ([facility]) . END OF REPORT * ML=Testing performed at Main Lab DEPARTMENT OF PATHOLOGY, [facility] [employer] [place], [place] [address] Wayne Duff M.D. Director [facility] # [id number] 40 RUN DATE: 09/16/14 [facility] LAB LIVE PAGE 1 RUN TIME: 825 [facility] [employer] [place], [place] [address] Specimen Inquiry Name: KEENA COATES : [address]: Quan Guerrero MD Acct: [id number] Unit: [id number] AGE: 54 Location: ED Re09/14/14 SEX: F Status: DEP ER SPEC: [id number] HASEEB: 09/14/14-[address] [facility] [address]: Quan Guerrero MD REQ: [id number] RECD: 09/14/14 STATUS: COMP [facility] DR: Alcides Brody MD _ SOURCE: URINE SPDESC: ORDERED: Urine Culture Procedure Result Verified Site Urine Culture Final 09/16/14- 825 ML Organism 1 NORMAL CHAVEZ [place] Count 10-25,000 (Moderate) CFU/ML * ML - MAIN LAB ([facility]) . END OF REPORT * ML=Testing performed at Main Lab DEPARTMENT OF PATHOLOGY, [address] [place] [address] Wayne Duff M.D. Director [facility] # [id number] 41 Please note: The following may produce [...] 0.03 ng/mL Not supportive of diagnosis of OK 0.03 - 0.50 ng/mL Indeterminate: suggest serial studies if clinically indicated. Greater than 0.5 ng/mL Consistent with diagnosis of OK 45 Acute inflammation: >10.00 46 Because ethnic [...] of <18.00 are negative. Test Performed by: [facility] [place] [address] Military Science Teacher: Quan Fishman II, M.D., Ph.D. 49 Results with Index Values of <8.95 are negative. Test Performed by: [place] [address] Military Science Teacher: Quan Fishman II, M.D., Ph.D. 50 Results with Index Values of <36.00 are negative. Test Performed by: [place] [address] Military Science Teacher: Quan Fishman II, M.D., Ph.D. 51 RUN DATE: 08/21/14 [facility] LAB LIVE PAGE 1 RUN TIME: [address] [place] [address] Specimen Inquiry Name: KEENA COATES : [address]: Alcides Brody MD Acct: [id number] Unit: [id number] AGE: 54 Location: [facility] Re08/21/14 SEX: F Status: REG REF SPEC: [id number] HASEEB: 08/21/[address] [facility] [address]: Alcides Brody MD REQ: [id number] RECD: 08/21/14 STATUS: RES _ SOURCE: STOOL SPDESC: ORDERED: E.coli O157:H7, Stool Culture, C. diff Amp DNA, O P (Full) QUERIES: Provider Requisition # [id number] Procedure Result Verified Site E.coli O157:H7 Culture [...] performed at Main Lab DEPARTMENT OF PATHOLOGY, [address] [place] [address] Wayne Duff M.D. Director [facility] # [id number] RUN DATE: 08/21/14 [facility] LAB LIVE PAGE 2 RUN TIME: [address] [place] [address] Specimen Inquiry Patient: KEENA COATES [id number] (Continued) Specimen: [id number] Collected: 08/21/14 Received: 08/21/14 (Continued) Procedure Result [...] PENDING * ML - MAIN LAB ([facility]) . END OF REPORT * ML=Testing performed at Main Lab DEPARTMENT OF PATHOLOGY, [facility] [employer] [place], [place] [address] Wayne Duff M.D. Director [facility] # [id number] 52 REFERENCE RANGE: NOT DETECTED The Entamoeba histolytica antigen EIA test detects only the antigen of the pathogenic E. histolytica; the non-pathogenic E. dispar is not detected. Test Performed by: [employer] [address] [place] [address] 53 RUN DATE: 08/23/14 [facility] LAB LIVE PAGE 1 RUN TIME: 1110 [facility] [employer] [place], [place] [address] Specimen Inquiry Name: KEENA COATES : [address]: Alcides Brody MD Acct: [id number] Unit: [id number] AGE: 54 Location: [facility] Re08/21/14 SEX: F Status: REG REF SPEC: [id number] HASEEB: 08/21/14-[address]: Alcides Brody MD REQ: [id number] RECD: 08/21/14 STATUS: RES _ SOURCE: STOOL SPDESC: ORDERED: E.coli O157:H7, Stool Culture, C. diff Amp DNA, O P (Full) QUERIES: Provider Requisition # [id number] Procedure Result Verified Site E.coli O157:H7 Culture [...] performed at Main Lab DEPARTMENT OF PATHOLOGY, [facility] [employer] [place], [place] [address] Wayne Duff M.D. Director [facility] # [id number] RUN DATE: 08/23/14 [facility] LAB LIVE PAGE 2 RUN TIME: 1110 [facility] [place], [place] [address] Specimen Inquiry Patient: LILIAKEENA [id number] (Continued) Specimen: [id number] Collected: 08/21/14-1029 Received: 08/21/14-1056 (Continued) Procedure Result [...] PENDING * ML - MAIN LAB ([facility]) . END OF REPORT * ML=Testing performed at Main Lab DEPARTMENT OF PATHOLOGY, [address] [place] [address] Wayne Duff M.D. Director [facility] # [id number] 55 RUN DATE: 08/25/14 [facility] LAB LIVE PAGE 1 RUN TIME: [address] [place], [place] [address] Specimen Inquiry Name: KEENA COATES : [address]: Alcides Brody MD Acct: [id number] Unit: [id number] AGE: 54 Location: [facility] Re08/21/14 SEX: F Status: REG REF SPEC: [id number] HASEEB: 08/21/14-[address]: Alcides Brody MD REQ: [id number] RECD: 08/21/14 STATUS: COMP _ SOURCE: STOOL SPDESC: ORDERED: E.coli O157:H7, Stool Culture, C. diff Amp DNA, O P (Full) QUERIES: Provider Requisition # [id number] Procedure Result Verified Site E.coli O157:H7 Culture [...] performed at Main Lab DEPARTMENT OF PATHOLOGY, [facility] [employer] [place] [address] Wayne Duff M.D. Director [facility] # [id number] RUN DATE: 08/25/14 [facility] LAB LIVE PAGE 2 RUN TIME: 1608 [facility] [employer] [place], [place] [address] Specimen Inquiry Patient: KEENA COATES [id number] (Continued) Specimen: [id number] Collected: 08/21/14-1029 Received: 08/21/14 (Continued) Procedure Result [...] performed at Main Lab DEPARTMENT OF PATHOLOGY, [facility] [employer] [place] [address] Wayne Duff M.D. Director [facility] # [id number] RUN DATE: 08/25/14 [facility] LAB LIVE PAGE 3 RUN TIME: 1608 [facility] [place], [place] [address] Specimen Inquiry Patient: LILIAKEENA [id number] (Continued) Specimen: [id number] Collected: 08/21/14 Received: 08/21/14-1056 (Continued) Procedure Result Verified Site Ova Parasite Concen Full Final (continued) 08/25/14- 160 Final Result No Ova Parasites seen by Ethyl Acetate Concentration No Cysts or Trophs Seen on Trichrome smear * ML - MAIN LAB ([facility]) . END OF REPORT * ML=Testing performed at Main Lab DEPARTMENT OF PATHOLOGY, [facility] [employer] [place] [address] Wayne Duff M.D. Director [facility] # [id number] 55 RUN DATE: 08/24/14 [facility] LAB LIVE PAGE 1 RUN TIME: 1112 [facility] [place], [place] [address] Specimen Inquiry Name: KEENA COATES : [address]: Alcides Brody MD Acct: [id number] Unit: [id number] AGE: 54 Location: [facility] Re08/21/14 SEX: F Status: REG REF SPEC: [id number] HASEEB: 08/21/14-[address] [facility] [address]: Alcides Brody MD REQ: [id number] RECD: 08/21/14 STATUS: RES _ SOURCE: STOOL SPDESC: ORDERED: E.coli O157:H7, Stool Culture, C. diff Amp DNA, O P (Full) QUERIES: Provider Requisition # [id number] Procedure Result Verified Site E.coli O157:H7 Culture [...] performed at Main Lab DEPARTMENT OF PATHOLOGY, [address] [place] [address] Wayne Duff M.D. Director [facility] # [id number] RUN DATE: 08/24/14 [facility] LAB LIVE PAGE 2 RUN TIME: [address] [place] [address] Specimen Inquiry Patient: KEENA COATES [id number] (Continued) Specimen: [id number] Collected: 08/21/14-1029 Received: 08/21/14-1056 (Continued) Procedure Result [...] PENDING * ML - MAIN LAB ([facility]) . END OF REPORT * ML=Testing performed at Main Lab DEPARTMENT OF PATHOLOGY, [address] [place] [address] Wayne Duff M.D. Director [facility] # [id number] 56 Effective July 17, 2014 at 12:00pm [...] Very High >189 65 RUN DATE: 11/03/13 [facility] LAB LIVE PAGE 1 RUN TIME: 12[address] [place], [place] [address] Specimen Inquiry Name: KEENA COATES : [address]: Tarsha Underwood MD Acct: [id number] Unit: [id number] AGE: 53 Location: [facility] Re10/31/13 SEX: F Status: REG REF SPEC: [id number] HASEEB: 10/31/[address]: Tarsha Underwood MD REQ: [id number] RECD: 10/31/13 STATUS: SOUT _ ORDERED: IMAGE ANALYSIS, HPV/Thin Prep FINAL DIAGNOSIS Negative for Intraepithelial lesion or Malignancy COMMENTS: Specimen sent to [facility] in [place], [place] on 11/03/13 by [id number] at 1220. Results will be reported separately. [...] was evaluated with the assistance of the ThinPrep Test Imaging System. Due to cytologic findings at the rod bending machine operator microscope, comprehensive manual rescreening by a Tar Heater may be required. The Pap Smear is [...] END OF REPORT * ML=Testing performed at [facility] Lab DEPARTMENT OF PATHOLOGY, [address] [place] [address] Wayne Duff M.D. Director [facility] # [id number] 66 RESULT: Ectocervical/Endocervical 67 The following Other High Risk HPV types were not detected: 31, 33, 35, 39, 45, 51, 52, 56, 58, 59, 66, and 68 Test Performed by: [place] [address] Military Science Teacher: Jorge Luis Ruiz III, M.D. 68 Normal [...] <15 (or dialysis) 70 RUN DATE: 09/08/13 [facility] LAB LIVE PAGE 1 RUN TIME: [address] [place] [address] Specimen Inquiry Name: LILIA,KEENA M : [address]: Vasyl Richards MD Acct: [id number] Unit: [id number] AGE: 53 Location: ED Re09/06/13 SEX: F Status: DEP ER SPEC: [id number] HASEEB: 09/06/[address]: Patrizia TSAI REQ: [id number] RECD: 09/06/13 STATUS: COMP OTHR DR: Vasyl Underwood MD _ SOURCE: URINE SPDESC: ORDERED: Urine Culture Procedure Result Verified Site Urine Culture Final 09/08/13- 0940 ML Organism 1 NORMAL CHAVEZ [place] Count 1-10,000 (Few) CFU/ML END OF REPORT * ML=Testing performed at Main Lab DEPARTMENT OF PATHOLOGY, [address] [place] [address] Wayne Duff M.D. Director [facility] Permit #[id number] 71 FASTING 72 Normal Range 180 to 914 Indeterminate Range 145 to 180 Deficient Range <145 73 -- REFERENCE VALUE -- 25-HYDROXY D TOTAL (D2+D3) Optimum levels in the healthy population are 20-50, patients with bone disease may benefit from higher levels within this range. Test Performed by: [address] [address] [employer] Teacher: Jorge Luis Ruiz III, M.D. 74 Desirable <150 Borderline high 150-199 High 200-499 Very High >500 75 Desirable <200 Borderline high 200-239 High >239 76 Low <40 Desirable: 40-60 High: >60 77 Desirable <100 Near Optimal 100-129 Borderline high 130-159 High 160-189 Very High >189 78 FASTING 79 FASTING 80 2+ (>10-30 /hpf) 81 RUN DATE: 03/23/13 [facility] LAB LIVE PAGE 1 RUN TIME: [address] [place] [address] Specimen Inquiry Name: KEENA COATES : [address]: Tez ROONEY Acct: [id number] Unit: [id number] AGE: 53 Location: LAB Re03/21/13 SEX: F Status: REG REF SPEC: [id number] HASEEB: 03/21/13-[address] [facility] [address]: Tez COWAN REQ: [id number] RECD: 03/21/135 STATUS: CELIA ERNANDEZ DR: Tarsha Underwood MD _ SOURCE: URINE SPDESC: ORDERED: Urine Culture Procedure Result Verified Site Urine Culture Final 03/23/13- 0857 ML Organism 1 NORMAL CHAVEZ [place] Count 75-100,000 (Many) CFU/ML END OF REPORT * ML=Testing performed at Main Lab DEPARTMENT OF PATHOLOGY, [address] [place] [address] Wayne Duff M.D. Director [facility] Permit #[id number] 82 Dipstick not performed due to tech [...] normal population are 25-80 Test Performed by: [address] [address] [employer] Teacher: Jorge Luis Ruiz III, M.D. 94 If clinically indicated, testing for Hepatitis B Core IgM antibody is necessary to differentiate between acute and past HBV infection. Test Performed by: [facility] Dpt of Lab Med and Pathology [address] [place] [address] [employer] Teacher: Jorge Luis Ruiz III, M.D. 95 Test Performed by: [facility] Dpt of Lab Med and Pathology [address] [place] [address] [employer] Science Teacher: Jorge Luis Ruiz III, M.D. 96 The [...] normal population are 25-80 Test Performed by: [facility] Dpt of Lab Med and Pathology [address] [place] [address] [employer] Teacher: Jorge Luis Ruiz III, M.D. Procedures Date CPT Code Description Status Comment 03/12/2017 Mammogram Completed 12/21/2015 Mammogram Completed 12/15/2014 Mammogram Completed 02/17/2014 Colonoscopy Completed 11/18/2013 Mammogram Completed 01/31/2012 52690 EKG Tracing & Completed Interpretation 12/26/2011 Mammogram Completed 08/24/[address] Encinas, 2 hyperplastic polyps per [employer] Encounters Type Date Location Provider CPT E/M Dx Office Visit 08/14/2017 [facility] Internal Lui Samson 84548 J45.909 11:00a Medicine - [place] Selvin Roberson K21.9 Office Visit 07/17/2017 8:40a [facility] Internal Lui Samson 12733 J45.909 Medicine - [place] Selvin Roberson G47.00 K21.9 Office Visit 07/02/2017 9:45a [facility] [place], [address] Z98.84 [facility] FACS K21.9 Office Visit 04/10/2017 8:00a [facility] Gayatri Samson M.D. 42465 J06.9 Medicine - [place] Selvin M25.571 Office Visit 03/27/2017 2:40p [facility] Internal Lui Samson 73820 Z01.818 Medicine - Tbalejo Montalvo M.D. N90.3 J06.9 Office Visit 02/13/2017 11:30a [facility] [address] G43.009 R94.02 R42 R13.10 Office Visit 01/30/2017 11:20a [facility] Internal Medicine Lui Samson M.D. 95185 I10 - [place] Selvin K21.9 J45.909 E66.9 G47.00 Office Visit 11/03/2016 11:00a [place] [address] R94.02 Services Of [facility] R42 Office Visit 10/17/2016 9:00a [facility] Internal Lui Samson, 72598 Z00.00 Medicine - [address] Karol E78.2 R31.9 E87.6 Office Visit 10/13/2016 2:00p [facility] Internal Alfredo Trevizo, 68555 R94.02 Medicine - [address] Karol,FACP H81.399 E87.6 Office Visit 10/09/2016 1:20p [facility] Internal Lui Samson M.D. 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 Office Visit 06/30/2016 2:40p [facility] Internal Alfredo Trevizo, 04250 J45.41 Medicine - [address] Karol,[facility] Office Visit 01/11/2016 7:40a [facility] Internal Lui Samson, 47676 K21.9 Medicine - [place] Selvin Roberson R31.9 D69.6 R94.5 G43.019 Office Visit 12/10/2015 2:20p [facility] [place] [address] Office Visit 12/03/2015 10:45a Neurosurgery Services Kevin Cottrell, 12926 M54.5 Of [facility] AT Ronnie Roberson Office Visit 11/09/2015 8:00a [facility] Internal Medicine Josh Samson, [address] Karol J20.9 Office Visit 11/01/2015 3:00p [facility] [place] [address] R05 Office Visit 09/28/2015 8:00a [facility] Internal Lui Reaganwoody, 53800 M51.16 Medicine - [address] M.D. S40.021A R53.83 Z23 Office Visit 08/31/2015 7:40a [facility] Internal Lui Calvert, 86673 M51.16 Medicine - [address] M.D. Office Visit 08/17/2015 2:20p [facility] Internal Lui Calvert, 72088 M51.16 Medicine - [address] M.D. M25.552 Office Visit 06/04/2015 1:20p [facility] Internal [facility] Josh Brody M.D. [address] M54.2 M54.5 Office Visit 04/08/2015 9:20a [facility] Internal [facility] Alcides Brody, [address] M.D. Office Visit 03/02/2015 9:40a [facility] Internal [facility] Alcides Brody [address] M.D. Office Visit 12/25/2014 4:00p [facility] Internal [facility] Josh Brody [address] M.D. Office Visit 11/09/2014 10:30a Neurosurgery Services Kevin Cottrell 15163 724.2 Of [facility] [place]ale Office Visit 09/08/2014 3:40p [facility] Internal [facility] Josh Brody [address] M.D. 535.40 787.20 535.50 Office Visit 08/26/2014 10:00a Neurosurgery Services Kevin Cottrell M.D. 12007 724.2 Of [facility] Office Visit 08/25/2014 3:20p [facility] Internal Beba Brody M.D. [address] 787.91 724.2 724.8 Office Visit 08/20/2014 11:20a [facility] Internal Beba Brody M.D. 77043 009.3 - [address] 276.51 787.91 Office Visit 07/29/2014 10:30a Neurosurgery Services Kevin Cottrell 19653 724.2 Of [facility] M.Shahnaz Office Visit 06/24/2014 3:30p Neurosurgery Services Kevin Cottrell 37988 724.2 Of Shift Engineer Karol Office Visit 06/09/2014 2:40p [facility] Internal Medicine - Alcides Brody, 80999 493.00 Ayla Roberson 784.0 724.5 722.52 Office Visit 04/24/2014 3:00p [facility] Internal Medicine Alcides Brody M.D. 77176 724.5 - [place] 722.91 722.52 Office Visit 03/31/2014 10:20a [facility] Internal Medicine Maurilio Torrez, 21006 719.42 - Ayla Roberson V04.81 Office Visit 03/03/2014 4:00p [facility] Internal Medicine Eusebio Flores, MICHAELLE 24918 465.9 - [place] Office Visit 01/27/2014 11:00a [facility] Internal Medicine Eusebio Flores, MICHAELLE 53706 723.1 - [place] Office Visit 01/06/2014 11:40a [facility] Internal Medicine Johana Ferreira, N.P. 97270 530.81 - [place] Office Visit 10/31/2013 2:00p [facility] Internal Medicine Tarsha Underwood M.D. 49106 V76.2 - [place] V76.10 V70.0 296.31 535.00 V45.86 Office Visit 09/30/2013 10:20a [facility] Internal Medicine Johana Ferreira, N.P. 33348 528.9 - [place] Office Visit 09/12/2013 1:40p [facility] Internal Medicine Tarsha Underwood M.D. 70681 599.70 - [place] 724.5 Office Visit 09/02/2013 11:20a [facility] Internal Medicine Johana Ferreira, N.P. 43975 465.9 - [place] 535.00 724.5 Office Visit 06/27/2013 2:40p [facility] Internal Medicine - Tarsha Underwood M.D. 82399 722.93 [place] 724.5 Office Visit 05/26/2013 3:00p [facility] Internal Medicine - Tarsha Underwood M.D. 00059 722.93 [place] 724.5 Office Visit 03/21/2013 11:40a [facility] Internal Medicine - Tarsha Underwood M.D. 03089 724.5 [place] 599.70 719.45 Office Visit 02/03/2013 9:00a [facility] Internal Medicine - Tarsha Underwood M.D. 00697 296.31 [place] 724.5 Office Visit 12/18/2012 11:20a [facility] Internal Medicine Tarsha Underwood M.D. 32634 724.5 - [place] Office Visit 12/10/2012 3:40p [facility] Internal Medicine Johana Ferreira N.PDoug 75778 724.5 - [place] Office Visit 08/30/2012 1:40p [facility] Internal Medicine Tarsha Underwood M.D. 52747 530.12 - [place] 724.5 296.31 626.8 V70.0 Office Visit 08/05/2012 10:40a [facility] Internal Medicine Tarsha Underwood M.D. 73872 724.5 [place] 296.31 530.12 Office Visit 07/01/2012 2:20p [facility] Internal Medicine Tarsha Underwood M.D. 85198 724.5 [place] 722.93 Office Visit 05/31/2012 2:20p [facility] Internal Medicine Tarsha Underwood M.D. 28773 724.5 [place] Office Visit 04/24/2012 10:40a [facility] Internal Medicine Tarsha Underwood M.D. 79721 722.93 [place] 709.9 Office Visit 04/03/2012 9:20a [facility] Internal Medicine Tarsha Underwood M.D. 13267 722.93 [place] Office Visit 03/27/2012 12:40p [facility] Internal Medicine Tarsha Underwood M.D. 04082 724.5 [place] 722.93 Office Visit 03/15/2012 10:40a [facility] Internal Medicine Tarsha Underwood M.D. 41672 722.93 [place] 724.5 Office Visit 01/31/2012 11:20a [facility] Internal Medicine Tarsha Underwood M.D. 72179 722.93 [place] 493.90 V45.86 296.31 281.9 Office Visit 01/08/2012 9:40a [facility] Internal Medicine Tarsha Underwood M.D. 29715 782.3 [place] 724.5 493.90 Office Visit 11/17/2011 4:00p [facility] Internal Medicine - Tarsha Underwood M.D. 40934 722.93 [place] 724.5 995.3 Office Visit 11/03/2011 12:40p [facility] Internal Medicine - Tarsha Underwood M.D. 49568 722.93 [place] Office Visit 10/13/2011 2:00p [facility] Internal Medicine - Tarsha Underwood M.D. 63509 722.93 [place] 724.5 V45.86 Office Visit 09/13/2011 10:40a [facility] Internal Medicine - Tarsha Underwood M.D. 78523 722.93 [place] V45.86 Office Visit 07/28/2011 10:40a [facility] Internal Medicine - Tarsha Underwood M.D. 08886 722.93 [place] 783.1 296.31 789.02 Office Visit 07/11/2011 4:20p [facility] Internal Medicine Johana Ferreira, N.PDoug 92739 724.5 - [place] Office Visit 07/05/2011 1:40p [facility] Internal Medicine Tarsha Underwood M.D. 48555 783.1 - [place] Office Visit 06/23/2011 8:40a [facility] Internal Medicine Tarsha Underwood M.D. 80228 715.11 - [place] Office Visit 06/09/2011 11:00a [facility] Internal Medicine Tarsha Underwood M.D. 87031 296.31 - [place] 719.41 Office Visit 05/10/2011 9:20a DO Not Use [facility] Tarsha Underwood M.D. 38158 296.31 Office Visit 04/26/2011 9:40a DO Not Use [facility] Tarsha Underwood M.D. 86724 296.31 Office Visit 04/12/2011 9:40a DO Not Use [facility] Tarsha Underwood M.D. 54677 281.9 V45.86 733.6 790.6 V02.61 Office Visit 03/29/2011 1:40p DO Not Use [facility] Tarsha Underwood M.D. 64339 281.9 807.00 296.31 Plan of Care Future Appointment(s):04/15/2018 9:30 am - Parker Reis M.D. at [facility]11/19/2017 8:00 am - Lui Samson M.D. at [facility] Internal Medicine - [address]10/17/2017 - Morenita Salinas MDG43.009 Migraine w/o aura, not intractable, w/o status migrainosusRecommendations:the headaches are likely worse right now because of the neck pain so getting this under control opgmurczX00.02 Abnormal brain scanFollow up:[address] ReisRecsadiedations :the MRI of the brain was stable and does not show any enhancement any longer.M54.2 CervicalgiaNew Xrays:MRI Cervical Spine WoNew Therapy:Physical TherapyFollow up:: we will call you with results of the mRI of the neck call for an appointment with Dr. Youssef to see if more needs to be done for the shoulder.Recommendations:because of the sensory changes in the left arm, we will check MRI of the neck. Go to PT for the neckand arm painR20.0 Anesthesia of skin
[2017-11-06 16:26] LABS: ABS Basophils 0 10^3/ul (0-0.2); ABS Eosinophils 0.1 10^3/ul (0-0.6); ABS Lymphocytes 1.6 10^3/ul (1.0-4.8); ABS Monocytes 0.5 10^3/ul (0-0.8); ABS Nucleated RBC 0 10^3/ul; Eosinophil % 3.1 % (0-6); Hematocrit 38 % (35-47); Hemoglobin 13.2 g/dl (12.0-16.0); Lymphocyte % 37.5 % (25-47); Mean Corpuscular HGB Conc 35 g/dl (31-36); Mean Corpuscular Hemoglobin 32 pg (27-31); Mean Corpuscular Volume 93 fL (80-97); Mean Platelet Volume 8.9 um3 (7.4-10.4); Nucleated Red Blood Cells % 0; Platelet Count 171 10^3/ul (150-450); Red Blood Count 4.08 10^6/ul (4.00-5.40); Red Cell Distribution Width 14 % (10.5-15); White Blood Count 4.4 10^3/ul (3.5-10.8)
[2017-11-06 16:48] LABS: EGFR Non-African American 69.2 (>60)
[2017-11-06] MEDS ORDERED: NS 0.9% 1000 ML* 1,000 ML IV ONE (17:30)
--- NOTE | 2017-11-06 17:47 | RAD ---
INDICATION: Left-sided weakness COMPARISON: Most recent comparison CT of the brain is dated October 06, 2016 TECHNIQUE: Contiguous axial sections of the brain were obtained from the skull base to the vertex without contrast. FINDINGS: The ventricles, cisterns and sulci are within normal limits. The bustillos-white matter differentiation is adequately maintained and there is no sulcal effacement. No significant focal abnormality or mass effect is present. There is no evidence for intracranial hemorrhage. No significant focal osseous abnormality is present. The visualized portion of the paranasal sinuses appear clear. The mastoid air cells are well aerated bilaterally. IMPRESSION: Negative unenhanced CT of the brain. Findings reported to Dr. Guerrero over the telephone at 1742 hours on November 06, 2017.
[2017-11-06] MEDS ORDERED: Iohexol 350* (CONTRAST) 500 ML MDV IV ONE (17:55)
[2017-11-06 18:38] LABS: Urine Appearance Clear; Urine Blood 2+ (Negative); Urine Color Straw; Urine Ketones Negative (Negative); Urine Protein Negative (Negative); Urine Urobilinogen Negative (Negative)
--- NOTE | 2017-11-06 18:56 | RAD ---
INDICATION: Near syncope COMPARISON: Most recent comparison chest x-ray is dated December 07, 2015 TECHNIQUE: Single AP portable view of the chest was obtained. FINDINGS: Image quality is compromised due to the relative inferiority of a portable chest x-ray. The heart and mediastinum exhibit normal size and contour. The lungs are grossly clear. There is no evidence of a large pleural effusion. Visualized bones are normal for the patient's age. IMPRESSION: No radiographic evidence for acute cardiopulmonary abnormality on this portable chest x-ray.
--- NOTE | 2017-11-06 19:09 | RAD ---
CPT II: CPT II Codes: 3100F INDICATION: Transient left-sided weakness COMPARISON: CTA head and neck December 06, 2016 as well as a same day noncontrast CT of the brain. TECHNIQUE: A CT angiogram of the head and neck was performed with 80 cc of Omnipaque 350. Contiguous axial sections were obtained from the thoracic inlet through the [place]. Images were reconstructed in the sagittal, coronal planes and in a 3-D volume rendered format. The distal cervical internal carotid artery diameter is used as the denominater for stenosis measurement. CTA NECK: The common and internal carotid arteries are patent without hemodynamically significant stenosis. Right: Just below the carotid bifurcation the right common carotid artery measures 5 mm in diameter. At the level of the carotid bulb the artery measures 6 mm in short axis diameter yielding 0% degree stenosis. Left: Just below the left carotid bulb the common carotid artery measures 5 mm in diameter. Immediately above the bifurcation the internal carotid artery measures 6 mm in diameter yielding 0% degree stenosis. The vertebral arteries are patent without gross abnormality. CTA of the brain: The internal carotid, anterior and middle cerebral arteries appear are patent without high grade stenosis or occlusion. The vertebral and basilar arteries appear patent without high grade stenosis or occlusion. The posterior cerebral arteries arise from the posterior communicating arteries consistent with origin.. The [place] is incomplete as the posterior cerebral arteries do not communicate at the midline. No focal luminal filling defect, aneurysm or vascular malformation is seen. IMPRESSION: 1. Normal CT angiography of the head and neck. 2. No carotid artery stenosis according to the NASCET criteria.
[2017-11-06] MEDS ORDERED: Al Hydrox/Mg Hydrox/Simet LIQ* 30 ML UDC PO PRN (20:03)
[2017-11-06] MEDS ORDERED: Senna TAB PO PRN (20:03)
[2017-11-06] MEDS ORDERED: Docusate CAP* 100 MG PO PRN (20:03)
[2017-11-06] MEDS ORDERED: Ondansetron 40 MG VIAL* 2 MG/ML 20 ML VIAL IV PRN (20:03)
[2017-11-06] MEDS ORDERED: Acetaminophen TAB* 325 MG PO PRN (20:03)
[2017-11-06] MEDS ORDERED: Albuterol HFA INHALER* 8 gm MDI INH PRN (20:07)
[2017-11-06] MEDS ORDERED: Aspirin TAB* 325 MG PO ONE (20:21)
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
[2017-11-06] MEDS: HYDROcodone/ACETAMIN 5-325 MG* 1 TAB PO PRN (22:23)
[2017-11-06] MEDS: Heparin VIAL(*) 5000 UNITS/ML VIAL (FIVE THOUSAND) SUBCUT SCH (22:23)
[2017-11-06 22:32] LABS: INR 0.93 (0.77-1.02)
[2017-11-06] MEDS: Cyclobenzaprine TAB* 10 MG PO PRN (23:49)
--- NOTE | 2017-11-07 02:16 | HP ---
CC: Lui Samson MD; Morenita Salinas MD * HISTORY AND PHYSICAL: DATE OF ADMISSION: 11/06/17 TIME OF EVALUATION: 1999. PRIMARY CARE PHYSICIAN: Lui Samson MD CHIEF COMPLAINT: Disorientation, altered mental status. HISTORY OF PRESENT ILLNESS: This is a 57-year-old female with a past medical history of depression, chronic pain with a known lesion in the left lateral ventricle, who presented to the emergency room with feeling disoriented. The patient states around 1:45 this afternoon, she was driving to pickup her grandson and she just had this weird sensation in her car. Her friend was with her. She states she just felt out of it. She could not describe how she felt. She denies feeling lightheaded or dizzy. Her friend states her eyes were crossed and she does not remember the specific details but just was out of it. She tried to get out of the car. She was wobbly. She could not move and she just fell back into the car. She does not think she had any loss of consciousness. She does not think she had any lightheadedness or chest pain. She states about an hour prior to getting into the car, she developed some chest pain while she was washing her hands in the kitchen. A few weeks ago, she had left-sided pain radiating down her arm with numbness in her hand. She has had no further chest pain. This event of disorientation lasted for about 15 to 20 minutes. She states now she has a significant frontal migraine. She has been getting these since she fell at [facility] when she was visiting her son, who was having gallbladder surgery and she fell and hurt her back, neck , and left shoulder and she is planning to follow up with Neurosurgery for further intervention. The patient denies any nausea, vomiting, diarrhea. No shortness of breath. Recent changes in medication. She was started on imipramine, but has not yet started that. Otherwise, review of systems is negative. In the emergency room, a code apollo was called. The patient had a stroke workup that was unremarkable. She was given 1 L of fluid and referred to the hospitalist service for further evaluation. Dr. Salinas was notified as well. PAST MEDICAL HISTORY: 1. History of chronic pain. 2. History of several back surgeries with rods and fusion. 3. History of left shoulder pain. 4. Asthma. 5. Depression. 6. GERD. 7. History of dysphagia. 8. History of lap band surgery in 2007 with revision in 2010. Still continues to have difficulty swallowing. 9. 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 MEDICATIONS: 1. Aspirin 81 mg p.o. daily. 2. Imipramine 25 mg p.o. at bedtime. This has not yet been started. 3. Cyclobenzaprine 10 mg p.o. b.i.d. as needed. 4. Tylenol 500 mg b.i.d. as needed. 5. Claritin 10 mg daily as needed. 6. [place] 1 tab every 6 hours as needed. 7. Famotidine 40 mg in the evening. 8. Celexa 20 mg in the morning. 9. Omeprazole 20 mg in the morning. 10. Albuterol as needed. 11. Flovent b.i.d. ALLERGIES: ADHESIVE TAPE, KEFLEX, HYDROMORPHONE, KETOROLAC, MORPHINE, OXYCODONE , PENICILLIN, SULFA, TIGECYCLINE. FAMILY HISTORY: Her mother is aged 95 and healthy. Her father at 91 from old age. SOCIAL HISTORY: The patient lives at home alone. She is independent of her ADLs, unemployed, on disability. No history of smoking, alcohol, or illicit drug use. Her healthcare proxy are her mother and her daughter. CODE STATUS: Full code. REVIEW OF SYSTEMS: A 14-point review of systems as mentioned in the HPI, otherwise negative. PHYSICAL EXAMINATION GENERAL: No acute distress, resting comfortably. VITAL SIGNS: Temp 98, pulse rate 64, respiratory rate 18, oxygen saturation 99 % on room air, blood pressure 123/85. HEENT: Head: Normocephalic. Pupils are equal and reactive, anicteric. Oropharynx: Mucous membranes moist. NECK: Supple. No lymphadenopathy. She does have tenderness in the posterior neck and left shoulder discomfort. RESPIRATORY: Diminished breath sounds. No wheezes, rhonchi, or rales. CARDIAC: Regular rate and rhythm. Soft systolic murmur heard throughout. ABDOMEN: Positive bowel sounds, soft, nontender, morbidly obese. EXTREMITIES: No clubbing, cyanosis, or edema. +2 DPs. NEUROLOGIC: Alert and oriented x3. Negative pronator drift. Cranial nerves II through XII intact. No gross focal neurologic deficits. She has pain in her hips from doing the heel to schneider test, but no focal findings. LABORATORY DATA: White count 4.4, hemoglobin 13.2, hematocrit 38, platelets 171. Sodium 138, potassium 3.9, chloride 104, bicarb 28, BUN 16, creatinine 0.85 , glucose 68. Troponin is 0. LDL is 140, TSH is 138. RADIOGRAPHIC DATA: Head CT: Negative unenhanced CT of the brain. Chest x-ray : No radiographic evidence for acute cardiopulmonary abnormality. Head CTA: Normal CT angio of the head and neck. EKG shows normal sinus rhythm. ASSESSMENT: This is a 57-year-old female with past medical history of chronic pain and a finding of a lesion in the left lateral ventricle, who presents to the emergency room with disoriented event. 1. Disorientation: Assessment: It is unclear the etiology behind her presentation. She had an episode of chest pain. She really has no cardiac risk factors and then she had an episode of feeling disoriented. Does not appear to be presyncopal event but possibly seizure. It could be complicated migraine in the setting of her recent fall and having frontal headaches. I spoke with Dr. Salinas, who is going to follow up in the morning. Plan will be to observe her overnight on telemetry. Neurologic checks, we will check orthostatics. We will repeat a troponin to rule her out and continue her on a baby aspirin. We will give her full dose of aspirin here. She also has low normal blood glucose in the emergency room. This could be related. We will check glucose q.4 hours. CHRONIC MEDICAL PROBLEMS: 1. Chronic pain. Continue cyclobenzaprine. We will hold off imipramine as this has not been started yet. Continue Tylenol and her [place]. 2. Depression. Continue her Celexa. 3. GERD and dysphagia. Continue her famotidine and omeprazole. 4. Aspirin. Continue her on her albuterol and Flovent. 5. FEN. Placed the patient on heart healthy diet. 6. DVT prophylaxis. The patient scores moderate risk. We placed her on heparin subcu t.i.d. 7. Code status. Full code. PATIENT TIME: Greater than 60 minutes were spent doing history and physical, more than half the time was spent in direct patient contact. [id number]/[facility] #: [id number] ELAINE
[2017-11-07] MEDS: Heparin VIAL(*) 5000 UNITS/ML VIAL (FIVE THOUSAND) SUBCUT SCH ×2 (05:25→14:21)
[2017-11-07] MEDS ORDERED: Omeprazole CAP* 20 MG PO SCH (06:00)
[2017-11-07] MEDS: Mometasone/Formoter 100/5 MDI INH SCH ×2 (07:32→08:27)
[2017-11-07] MEDS: Cyclobenzaprine TAB* 10 MG PO PRN (08:09)
[2017-11-07] MEDS ORDERED: NS 0.9% 1000 ML* 1,000 ML IV SCH (08:30)
[2017-11-07] MEDS ORDERED: Citalopram TAB* 20 MG PO SCH (09:00)
[2017-11-07] MEDS ORDERED: Aspirin EC TAB* 81 MG TAB.EC PO SCH (09:00)
[2017-11-07 10:07] LABS: EGFR Non-African American 66.5 (>60)
[2017-11-07 15:49] VITALS: BP 102/61
[2017-11-07] MEDS: HYDROcodone/ACETAMIN 5-325 MG* 1 TAB PO PRN (16:05)
--- NOTE | 2017-11-07 16:22 | PN ---
Subjective Date of Service: 11/07/17 Interval History: pt stated that she fall 2 weeks ago and hurt b/l hips. Has an appointment with neurosurgery to f/u on her chronic LBP at the beginning of November. Today c/o no headache, has had chronic intermittent left arm numbness, but thinks it's related to shoulder contusion after the fall Objective Active Medications: Acetaminophen (Tylenol Tab*) 650 mg PO Q4H PRN PRN Reason: FEVER/PAIN Hydrocodone Bitart/Acetaminophen ([place] 5-325 Tab*) 1 tab PO Q6H PRN PRN Reason: PAIN Last Admin: 11/07/17 16:05 Dose: 1 tab Al Hydrox/Mg Hydrox/Simethicone (Maalox Plus*) 30 ml PO Q6H PRN PRN Reason: INDIGESTION Albuterol (Ventolin Hfa Inhaler*) 2 puff INH Q4H PRN PRN Reason: SOB/WHEEZING Aspirin (Aspirin Ec Tab*) 81 mg PO DAILY [facility] Last Admin: 11/07/17 08:08 Dose: 81 mg Citalopram Hydrobromide (Celexa Tab*) 20 mg PO QAM [facility] Last Admin: 11/07/17 08:08 Dose: 20 mg Cyclobenzaprine HCl (Flexeril Tab*) 10 mg PO BID PRN PRN Reason: PAIN Last Admin: 11/07/17 08:09 Dose: 10 mg Docusate Sodium (Colace Cap*) 100 mg PO BID PRN PRN Reason: CONSTIPATION Famotidine (Pepcid Tab*) 40 mg PO 2100 [facility] Heparin Sodium (Porcine) (Heparin Vial(*)) 5,000 units SUBCUT Q8HR [facility] Last Admin: 11/07/17 14:21 Dose: 5,000 units Mometasone Furoate/Formoterol Fumar (Dulera 100/5 Mdi*) 2 puff INH BID [facility] Last Admin: 11/07/17 08:27 Dose: 2 puff Omeprazole (Prilosec Cap*) 20 mg PO 0600 [facility] Last Admin: 11/07/17 05:25 Dose: 20 mg Ondansetron HCl (Zofran 40 Mg Vial*) 4 mg IV Q4H PRN PRN Reason: NAUSEA/VOMITING Senna (Senokot Tab*) 1 tab PO BID PRN PRN Reason: CONSTIPATION Vital Signs - 8 hr 11/07/17 11/07/17 11/07/17 08:29 11:12 12:02 Temperature 98.2 F Pulse Rate 70 72 Respiratory 16 18 16 Rate Blood Pressure 113/68 (mmHg) O2 Sat by Pulse 98 97 Oximetry 11/07/17 11/07/17 15:10 16:05 Temperature 98.4 F Pulse Rate 80 Respiratory 20 20 Rate Blood Pressure 102/61 (mmHg) O2 Sat by Pulse 99 Oximetry Oxygen Devices in Use Now: None Appearance: 57 yo F in nAD, aAOx3 Eyes: No Scleral Icterus, PERRLA Ears/Nose/Mouth/Throat: NL Teeth, Lips, Gums, Mucous Membranes Moist Neck: NL Appearance and Movements; NL JVP, Trachea Midline Respiratory: Symmetrical Chest Expansion and Respiratory Effort, Clear to Auscultation Cardiovascular: NL Sounds; No Murmurs; No JVD, RRR Abdominal: NL Sounds; No Tenderness; No Distention, No Hepatosplenomegaly Lymphatic: No Cervical Adenopathy Extremities: No Edema, No Clubbing, Cyanosis Skin: No Rash or Ulcers, No Nodules or Sclerosis Neurological: Alert and Oriented x 3, - - problems with raising legs of bed due to b/l hip pain, no motor deficit Result Diagrams: 11/06/17 16:14 11/07/17 09:19 Additional Lab and Data: Lab Results 11/06/17 11/06/17 11/06/17 Range/Units 16:13 16:14 16:14 WBC 4.4 (3.5-10.8) 10^3/ul RBC 4.08 (4.00-5.40) 10^6/ul Hgb 13.2 (12.0-16.0) g/dl Hct 38 (35-47) % MCV 93 (80-97) fL MCH 32 H (27-31) pg MCHC 35 (31-36) g/dl RDW 14 (10.5-15) % Plt Count 171 (150-450) 10^3/ul MPV 8.9 (7.4-10.4) um3 Neut % (Auto) 46.8 (38-83) % Lymph % (Auto) 37.5 (25-47) % [place] % (Auto) 11.5 H (0-7) % Eos % (Auto) 3.1 (0-6) % Baso % (Auto) 1.1 (0-2) % Absolute Neuts (auto) 2.0 (1.5-7.7) 10^3/ul Absolute Lymphs (auto) 1.6 (1.0-4.8) 10^3/ul Absolute Monos (auto) 0.5 (0-0.8) 10^3/ul Absolute Eos (auto) 0.1 (0-0.6) 10^3/ul Absolute Basos (auto) 0 (0-0.2) 10^3/ul Absolute Nucleated RBC 0 10^3/ul Nucleated RBC % 0 Sodium 138 (135-145) mmol/L Potassium 3.9 (3.5-5.0) mmol/L Chloride 104 (101-111) mmol/L Carbon Dioxide 28 (22-32) mmol/L Anion Gap 6 (2-11) mmol/L BUN 16 (6-24) mg/dL Creatinine 0.85 (0.51-0.95) mg/dL Est GFR ( Amer) 89.0 (>60) Est GFR (Non-Af Amer) 69.2 (>60) BUN/Creatinine Ratio 18.8 (8-20) Glucose 90 (70-100) mg/dL Lactic Acid 0.5 (0.5-2.0) mmol/L Calcium 9.3 (8.6-10.3) mg/dL Magnesium 2.2 (1.9-2.7) mg/dL Total Bilirubin 0.40 (0.2-1.0) mg/dL AST 18 (13-39) U/L ALT 18 (7-52) U/L Alkaline Phosphatase 61 (34-104) U/L Troponin I 0.00 (<0.04) ng/mL Total Protein 6.7 (6.4-8.9) g/dL Albumin 3.9 (3.2-5.2) g/dL Globulin 2.8 (2-4) g/dL Albumin/Globulin Ratio 1.4 (1-3) TSH 1.38 (0.34-5.60) mcIU/mL Assess/Plan/Problems-Billing Assessment: 57 yo f with h/o chronic pain, lumbar surgery in the past and recent fall presented after an episode of disorientation with h/o CP and intermittent left arm numbness - Patient Problems (1) Altered mental state Comment: transient , resolved. due to h/o left arm numbness MRI brain and neck ordered to r/o TIA/CVA and c. spine myelopathy Dr. Salinas consulted EEG pending (2) Chronic pain Comment: and b/l hip pain after a fall. Pt scheduled to see orthopedic surgeon as outpatient cont Flexeril prn (3) Chest pain Comment: ACS ruled out with negative EKG/troponin . Echo pending (4) DVT prophylaxis Comment: HSQ Status and Disposition: OBV
--- NOTE | 2017-11-07 18:32 | RAD ---
HISTORY: Transient altered mental status COMPARISONS: Noncontrast CT as well as CTA of the head and neck November 06, 2017. TECHNIQUE: The following sequences were obtained of the head: Sagittal T1-weighted images, axial T2-weighted images, axial FLAIR images, axial susceptibility weighted images, axial T1-weighted images. Additionally, axial diffusion-weighted images were obtained with calculated apparent diffusion coefficients.. FINDINGS: HEMORRHAGE/INFARCT: There is no hemorrhage or acute infarct. MASSES/SHIFT: There is no mass or shift. EXTRA-AXIAL SPACES/MENINGES: There are no extra-axial fluid collections. SULCI AND VENTRICLES: The sulci and ventricles are normal in size and position for the patient's stated age. CEREBRUM: There are no focal parenchymal abnormalities. BRAINSTEM: There are no focal parenchymal abnormalities. CEREBELLUM: There are no focal parenchymal abnormalities. The cerebellar tonsils are normal in size and position. SELLA: The sella is normal. PINEAL: The pineal region is clear. CP ANGLE/TEMPORAL BONES: The labyrinthine structures are grossly normal. VESSELS: Normal flow-voids are noted within the visualized vertebral vasculature. DIFFUSION ABNORMALITIES: There are no diffusion abnormalities. PARANASAL SINUSES/MASTOIDS: The paranasal sinuses are clear. ORBITS: The orbits are unremarkable. BONES AND SOFT TISSUE: No bone or soft tissue abnormalities are noted. IMPRESSION: NORMAL MRI OF THE BRAIN.
--- NOTE | 2017-11-07 18:45 | RAD ---
INDICATION: Leg weakness COMPARISON: CTA of the neck November 06, 2017 TECHNIQUE: Coronal T2, sagittal T1, inversion recovery, T2, and axial T1, T2, and gradient echo images were acquired. FINDINGS: The sella and craniocervical junction appear unremarkable. Degenerative change at the atlantodental interval includes osteophyte formation and sclerotic calcification of the dens. The appearance is chronic. There are no intrinsic abnormalities of the cord. The cervical vertebrae are normally aligned. The atlantodental interval is normal. Axial view images: Less otherwise specified below there is no significant central canal stenosis or neural foraminal stenosis. C2-C3: There is no significant central canal or neural foraminal stenoses. C3-C4: There is no significant central canal or neural foraminal stenoses. C4-C5: There is no significant central canal or neural foraminal stenoses. C5-C6: There is broad-based disc protrusion abutting the ventral thecal sac and combining with facet arthropathy to cause a very mild degree of bilateral neural foraminal stenosis. C6-C7: There is no significant central canal or neural foraminal stenoses. C7-T1: There is no significant central canal or neural foraminal stenoses. IMPRESSION:Mild degenerative changes of the cervical spine as described above, most severe at C5/C6..
[2017-11-07] MEDS ORDERED: Famotidine TAB* 20 MG PO SCH (21:00)
--- NOTE | 2017-11-08 00:37 | DS ---
CC: Dr. Samson; Dr. Salinas; Dr. Cottrell * DISCHARGE SUMMARY: DATE OF ADMISSION: 11/06/17 DATE OF DISCHARGE: 11/07/17 PRIMARY CARE PROVIDER: Dr. Samson. DISCHARGE DIAGNOSES: Transient episodes of altered mental status in a patient with history of intermittent left arm numbness and chest pain with grossly negative neurologic and cardiac workup, please see below. SECONDARY DIAGNOSES: 1. History of chronic pain. 2. History of several back surgeries in the past. 3. History of left shoulder pain. 4. History of laparoscopic band surgery in 2007 with revision in 2010. 5. Depression. 6. Gastroesophageal reflux disease. 7. Asthma. MEDICATIONS AT DISCHARGE: Unchanged from admission and include: 1. Imipramine 25 mg at bedtime. 2. Flexeril 10 mg b.i.d. p.r.n. 3. Tylenol on a p.r.n. basis. 4. Claritin 10 mg daily. 5. [place] on a p.r.n. basis. 6. Famotidine 40 mg daily. 7. Celexa 20 mg daily. 8. Omeprazole 20 mg daily. 9. Albuterol on a p.r.n. basis. 10. Flovent b.i.d. CONSULTATIONS DURING THE HOSPITAL STAY: Included Dr. Salinas from Neurology. LABORATORY DATA/DIAGNOSTIC STUDIES: Performed, included troponins that were negative throughout the patient's hospital stay. Cholesterol panel showed a total cholesterol of 218, triglycerides of 155, LDL of 140, HDL of 47.2. TSH was 1.3. The patient had a cervical spine MRI obtained on 11/07/17: Impression: "Mild degenerative changes of the cervical spine as described above. Most severe at C5- C6." Brain MRI: Impression: "Normal MRI of the brain." CTA of the head obtained on 11/06/17. Impression: "Normal CT angiography of the head and neck. No carotid artery stenosis according to the NASCET criteria. " HOSPITALIZATION COURSE: Keena Coates is a 57-year-old female with a history of chronic back pain, who fell a couple of weeks ago and suffered from bilateral hip contusion. The patient also has a history of chronic left shoulder pain. She presented to the hospital after an episode of transient alteration of mental state. For further details of the patient's hospitalization , please see history and physical dictated by Dr. Crawley at admission. Shortly, the patient felt disoriented. It resolved by the time of admission. She also had chest pain at some point. She was placed on overnight observation on telemetry-monitored bed. Her troponins were negative and her EKG was unremarkable. She had no more chest pain and there was no indication for any further evaluation at that point. In regards to her alteration of mental status, she was at her baseline throughout her hospital stay. Dr. Salinas saw the patient in consultation and EEG was performed and although I do not have the office report yet, as per discussion with Dr. Salinas, the EEG was unremarkable. The patient also had a brain MRI, cervical spine MRI, head CTA and brain CT, all of those were unremarkable apart from MRI of the cervical spine showing mild disk disease. At this point, the alteration of the patient's mental state's etiology was undetermined at discharge. The patient is recommended to follow up with her primary care provider with a scheduled appointment on 11/19/17. The patient is also scheduled with Dr. Salinas for a followup and she is to see Dr. Cottrell as already scheduled for her lumbar spine problems. For physical exam at the time of discharge, please see daily progress notes. [id number]/[facility] #: [id number] ELAINE
--- NOTE | 2017-11-08 05:06 | CONS ---
NEUROLOGY CONSULTATION: DATE OF CONSULT: 11/07/17 This is for the admission date November 06 to November 07. REQUESTING PROVIDER: Misa Crawley MD REASON FOR CONSULT: Altered mental status. HISTORY OF PRESENT ILLNESS: Keena Coates is a 57-year-old woman, whom I see in the office for a history of abnormal MRI as well as dizziness and headaches who presented to the emergency department yesterday after an episode of transient alteration in consciousness while she was driving. The patient reports that sometime after lunch, she was driving to pick and shovel man her grandson and suddenly had a weird sensation which descended over her. She has a difficult time describing exactly how she felt, but states that she felt out of it. She looked towards her friend, who was riding in the car with her and her friend told her that her eyes "rolled". The friend also had reported that there was possibly some staring and unresponsiveness during this time. She was able to pull the car over and then got out of the car, but says she was not able to take steps forward. She was only able to move backward and if the car had not been there she would have fallen over. She just felt that she was not in control of her body. She denies any dizziness, tomasz loss of balance, chest pain, and does not admit to any unilateral weakness on my evaluation this evening. She has had left-sided shoulder pain with subjective weakness in the arm since she had a fall about a month or so ago. She did not have any loss of consciousness with this episode. There was no clear vision changes. She does not really have any loss of memory from the event and feels that she remembers her friend talking to her. Her friend drove her to the hospital for further evaluation and when Dr. Guerrero initially evaluated her, he called the code apollo because of the apparent left-sided weakness that she reported though it is clear that this has not changed from her longer standing issue which has been present for about a month or so. She underwent EEG today because of this episode of disorientation and possible staring. She also underwent MRI scan of the brain as well as cervical spine and had just returned from those studies at the time of my evaluation. PAST MEDICAL HISTORY: 1. History of chronic pain. 2. Several back surgeries with rods and fusion. 3. Left shoulder pain. 4. Asthma. 5. Depression. 6. GERD. 7. Headaches. 8. Dysphagia. 9. History of lab band surgery in 2007 with revision in 2010. 10. History of abnormal MRI since October of 2016 when she had a periventricular white matter abnormality with very faint enhancement which has been stable over the past year with no further enhancement and no new lesions with most recent repeat MRI in September of this year. MEDICATIONS: 1. Aspirin 81 mg. 2. Cyclobenzaprine 10 mg twice daily which the patient reports she had not taken since the weekend. 3. Tylenol 500 mg twice daily as needed. 4. Claritin 10 mg daily as needed. 5. [place] 1 tab every 6 hours as needed which again the patient reports she had not taken since the weekend. 6. Famotidine 40 mg in the evening. 7. Celexa 20 mg in the morning. 8. Omeprazole 20 mg in the morning 9. Albuterol as needed. 10. Flovent b.i.d. ALLERGIES: ADHESIVE TAPE, KEFLEX, HYDROMORPHONE, KETOROLAC, MORPHINE, OXYCODONE , PENICILLIN, SULFA, TIGECYCLINE. FAMILY HISTORY: Mother is elderly and healthy. Father at 91 from old age. SOCIAL HISTORY: She is currently unemployed and on disability. She lives alone. Denies history of tobacco, alcohol, or drug use. REVIEW OF SYSTEMS: As per the HPI, otherwise negative. PHYSICAL EXAM: Vital Signs: Temperature 98.4, blood pressure 102/61, heart rate 80, oxygen saturation 99% on room air. I note that the patient had orthostatic blood pressures taken which were negative. On general examination when I entered the patient's room, she was ambulating easily around the room. She is in no acute distress. Heart is in a regular rate and rhythm with no murmurs, rubs, or gallops. Lungs are clear to auscultation. There are no carotid bruits. Extremity exam shows no edema. Her skin is intact. On neuro exam she is fully awake, alert, and oriented. Speech is clear without dysarthria or aphasia. Pupils were equal, round, and reactive from 3 to 2 mm bilaterally. Versions are full without nystagmus. Fletcher are full to confrontation. Facial sensation and musculature is full and symmetric. Hearing is intact to finger rub. The palate elevates symmetrically and the tongue is midline. On motor exam, she has full strength in the upper and lower extremities aside from some guarding of the left shoulder secondary to pain. Sensation is intact to light touch in the upper and lower extremities. Reflexes are 2+ throughout with downgoing toes. [id number] is intact without ataxia. Her gait is narrow based and stable. DIAGNOSTIC STUDIES/LAB DATA: Laboratory data was reviewed including a CBC and CMP, both of which were unremarkable. I note that her arrival blood glucose was 90 and normal. Coagulation studies were normal. Urinalysis showed no evidence for infection. She had a brain CT as well as a CT angiogram last evening which were both unremarkable. She had an EEG which was a normal study. At the time of my evaluation the MRI scan of the brain and the cervical spine of the MRI were pending. This dictation is being completed at a later time and those studies show no significant abnormalities and in particular, the brain MRI shows no new white matter abnormalities. IMPRESSION: This is a 57-year-old woman with a history of chronic pain, dizziness, and a past history of abnormal MRI which is stable, who came in with an episode of alteration in consciousness associated with a sense that she was not in control of her body. The exact etiology of this episode is uncertain. Her EEG was not suggestive of tendency towards focal seizure activity. Her episode is not suggestive of a transient ischemic attack. She was not orthostatic on evaluation. She does not admit to taking either the Flexeril or the [place] recently though one consideration was the possibility of polypharmacy creating these symptoms. I would not change her current medications nor would I add any medication in response to this episode. If she has any further similar episodes and certainly if anything is suggestive of focal seizure activity, a repeat EEG should be obtained. Thank you for this consultation. [id number]/[facility] #: [id number] ELAINE
--- NOTE | 2017-11-08 14:25 | EEG ---
CC: Dr. Samson * ELECTROENCEPHALOGRAPHY: DATE OF STUDY: 11/07/17 - ROOM #433 LOCATION: The patient is an inpatient. PRIMARY CARE PHYSICIAN: Dr. Samson. ORDERING PHYSICIAN: Dr. Salinas. CLINICAL PROBLEM: This is a 57-year-old woman who was admitted yesterday after an episode of feeling like she was going to pass out while driving. There may have also been a period of staring and unresponsiveness. She has been experiencing frequent headaches and neck pain lately. EEG is requested to evaluate for epileptiform abnormalities. MEDICATIONS: 1. Heparin. 2. Famotidine. 3. Ventolin. 4. Aspirin. 5. Omeprazole. 6. Dulera. 7. [place]. 8. Docusate. 9. Cyclobenzaprine. 10. Maalox. 11. Acetaminophen. 12. Citalopram. 13. Senna. 14. Ondansetron. REPORT: The waking background showed appropriate organization with clearly defined anterior to posterior voltage and frequency gradients. There was a well -defined posterior dominant rhythm of 9 Hz, which was symmetrical and showed normal reactivity. Anteriorly, there was an expected pattern of lower voltage, irregular, mixed faster frequencies. Photic stimulation and hyperventilation were not performed. Attenuation of the occipital rhythm accompanied drowsiness, but there were no well- developed sleep spindles to indicate the transition to stage 2 sleep. Throughout the recording, there were no epileptiform discharges, focal features , paroxysmal features, or significant interhemispheric asymmetries. CLINICAL IMPRESSION: This is a normal waking and drowsy EEG. There are no epileptiform abnormalities. [id number]/[facility] #: [id number] [facility]
== END 2017-11-07 19:35 | disposition home or self-care (01) ==
LOC: ED 15:22 → MEDTELE 20:03
PROVIDERS: ADMIT Pediatrics; ATTEND Internal Medicine
DX: R41.82 Altered mental status, unspecified (principal); R07.9 Chest pain, unspecified; R20.0 Anesthesia of skin; G89.29 Other chronic pain; M25.512 Pain in left shoulder; M54.5 Low back pain; K21.9 Gastro-esophageal reflux disease without esophagitis; J45.909 Unspecified asthma, uncomplicated; F32.9 Major depressive disorder, single episode, unspecified; Z79.82 Long term (current) use of aspirin; Z79.899 Other long term (current) drug therapy; Z88.1 Allergy status to other antibiotic agents; Z88.0 Allergy status to penicillin; Z88.2 Allergy status to sulfonamides; Z88.5 Allergy status to narcotic agent; Z98.84 Bariatric surgery status
CPT/HCPCS: 36415; 70450; 70496; 70498; 70551; 71045; 72141; 80048; 80053; 80061; 81003; 81015; 83605; 83735; 84443; 84484; 85025; 85610; 86850; 86900; 86901; 93005; 93306; 94640; 95816; 96372; 99284; A9270-GY; G0378; J1644; Q9967

== ENCOUNTER 2017-12-05 18:45 | Emergency (ER) | payer OTHER ==
--- OUTSIDE RECORDS SUMMARY | 2017-12-05 19:04 | XMS REPORT ---
:1960 External Reference #:[id number] Author Organization [facility] Address [address] [place] [address] [place] [address] Phone [phone] Care Team Providers Name Role Phone Lui Samson MD Primary Care Physician Unavailable Payers Type Date Identification Numbers Payment Provider Subscriber Commercial Policy Number: [id number] Agustín Coates Group Number: [id number] [address] PayID: [id number] [place] [address] Commercial Effective: Policy Number: Dennis/[employer] Keena Coates 2012 [id number] Medicaid Expires: 2012 PayID: [id number] [address] [address] [place] [address] Commercial Expires: 2012 Policy Number: [id number] Agustín Coates Group Name: CHAS# [id number] [address] PayID: [id number] [place] [address] Problems Date Description Provider Status Onset: 04/12/2011 [...] not Morenita Salinas MD Active refractory Onset: 11/20/2017 Strain of musc/tend the rotator Quentin Sanders MD Active cuff of left shoulder, subs Onset: 11/20/2017 Localized, secondary osteoarthritis Quentin Sanders MD Active of the shoulder region Onset: 10/17/2017 Skin sensation disturbance Morenita Salinas MD Active Onset: 10/17/2017 Neck pain Morenita Salinas MD Active Onset: 07/17/2017 Insomnia Lui Samson M.D. 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 Omeprazole 08/[address] 20mg 30cap 1 by mouth K21.9 s every day Pachikara, 1 hr M.D. before breakfast Famotidine 01/30 Active Tablets 40mg 30tab 1 by mouth K21.9 s every day Pachikara, 1 hour M.D. after dinner Ventolin HFA 01/30 Active Aerosol 108(90Bas 8gm 2 puffs by J45.909 e) mouth four Pachikara, mcg/Act times a M.D. day as needed Wrist Splint 07/05 Active Misc 1unit wear daily M79.642 Darin s remove to Latvian, [employer] shower x2 weeks Cane/Aluminum/Ad 08/16 Active Misc 1unit diagnosis: M51.16 Lima justable/Bronze /2015 s lumbar Pachika, Tone/Standard disc M.D. Handle disease Jobst Trouser 01/07 Active Misc 1Pair 1 pair prn 782.3 Eusebio 8-15MMHG/Knee /2011 to lower [place], [employer] TE[employer] High/Women/Mediu legs m Citalopram Active Tablets 20mg 30tab 1 every [place] Hydrobromide /0000 s day Karol Samson Tylenol PM Extra Active Tablets 500-25mg 1 tab by Unknown Strength /0000 mouth every 6 hours as needed Cyclobenzaprine Active Tablets 10mg 1 tablet Unknown HCL /0000 by mouth q8 hours as needed muscle spasms Flovent Diskus Active Aerosol 250mcg/Bl 1 puff Unknown /0000 ist twice a day Fexofenadine HCL 08/01 Hx Tablets 180mg 30tab once daily s [place] - M.D. 11/19 Zolpidem 07/17 Hx Tablets 5mg 30tab 1 tab G47.00 Lui Tartrate s daily at [facility], - bedtime M.D. 11/09 Dulera 07/17 Hx Aerosol 200-5mcg/ 8.800 2 puff J45.909 Act gm twice a [place], - day M.D. 11/09 Montelukast 07/17 Hx Tablets 10mg 30tab once daily J45.909 Sodium s [place] - M.D. 08/01 Levofloxacin 03/27 Hx Tablets 500mg 10tab once daily J06.9 s Josh Samson M.DDoug 04/10 Rizatriptan 02/13 Hx Tablets 5mg 9tabs 1 at onset G43.009 Morenita Benzoate Dispers of MD Brad - migraine. 04/10 in 2 hours if needed. do not use more than 2x/week Zolpidem 02/05 Hx Tablets 5mg 30tab 1 tab G47.00 [place]ima Tartrate s daily at [facility], - bedtime M.D. 07/17 Zolpidem 01/30 Hx Tablets 10mg 30tab 1/2 to 1 G47.00 Lima Tartrate s tab by [place], - mouth M.D. 02/05 night at bedtime as needed Prednisone 11/29 Hx Tablets 50mg 3tabs take 1 tab Morenita by mouth MD Brad - 13 hours, 02/12 7hrs and hour before ct Diphenhydramine 11/29 Hx Capsules 50mg 1caps 1 by mouth Morenita HCL 1 hour MD Brad - before 02/12. Potassium 10/17 Hx Tablets 75mg 30tab 1 by mouth Alfredo s every day Josh Hollingsworth M.D.,[facility] 10/19 Klor-Con 10 10/13 Hx Tablets ER 10Meq 30tab 1 by mouth Alfredo s every day Josh Hollingsworth M.D.,[facility] 02/12 Diclofenac 09/05 Hx Gel 1% 100gm apply 2 M77.11 Lima Sodium times Pachikara, - daily M.D. 10/19 Meloxicam 09/05 Hx Tablets 15mg 30tab once daily M77.11 Lima s with food Pachikara, - M.D. 10/19 Ibuprofen 07/05 Hx Tablets 400mg 90tab 1 tab by M79.642 Darin s mouth MICHAELLE Luna - every 6- 8 three times a day as needed: take w/ food Clarithromycin 06/30 Hx Tablets 500mg 14tab 1 by mouth Alfredo s twice a Francisco J. Santhosh, - day for 7 M.DDoug,FAC Cheratussin ac 06/30 Hx Syrup 100-10mg/ 236ml 10 Alfredo 5ML milliliter Shahnaz Trevizo, - s by mouth M.D.,FACP 10/13 four times a day as needed Pantoprazole 01/[address] 20mg 60tab 1 tab K21.9 Lui Sodium s twice a Pachikara, - day M.D. 02/12 Rizatriptan 01/10 Hx Tablets 10mg 12tab use at G43.019 Lui Benzoate s onset of Pachikara, - headache M.D. 10/13 after 2 h as needed Metoprolol 01/10 Hx Tablets 25mg 60tab 1 by mouth G43.019 Lima Tartrate s twice a Pachikara, - day [...] 30tab once daily M25.552 s with food Pachika, - M.D. 01/10 Hydrocodone-Acet 08/16 Hx Tablets 5-325mg 45tab 1 tab M51.16 Lui aminophen /2015 s every 8h Pachikara, - as needed [...] 10mg 90tab one by M54.89 Lui HCL /2014 s mouth Pachikara, - three M.D. 10/19 times day as needed spasm Asmanex 06/09 Hx Aerosol 220mcg/In 1unit 1 puff po J45.20 Darin Livingston 120 h s bid Jeremy [employer] Metered Doses - 11/10 Lasix 05/12 Hx Tablets 20mg 5tabs 1 tablet po daily Brody, - in am M.D. 08/20 Cyclobenzaprine 04/24 Hx Tablets 10mg 60tab one by 722.93 Alcides HCL s mouth Brody, - three M.D. 08/26 times day as needed spasm Ibuprofen 03/31 Hx Tablets 800mg 60tab by mouth 719.42 Alcides s three Brody, - times a M.D. 08/16 day as needed Mucinex 03/03 Hx Tablets ER 600mg 60tab 1 tab by 465.8 Eusebio 12HR s mouth q12 Sandra [employer] - hours 06/09 Omeprazole 01/[address] 20mg 30cap 1 by mouth 530.81 Johana s every day Varn, N.P. - 09/08 Naproxen 09/12 Hx Tablets 375mg 60tab take 1 719.42 s tablet Kj, - twice M.D. 03/31 daily for pain control Ranitidine HCL 09/02 Hx Capsules 150mg 60cap one 535.00 s capsule Varn, N.P. - every Iron 06/27 Hx Tablets 325(65Fe) 90tab 1 po qd mg s Kj, - M.D. 06/27 Proair HFA 06/27 Hx Aerosol 108(90Bas 1unit 2 puffs by Darin e) s mouth Latvian, [employer] - mcg/Act every 4 10/19 hours needed Cyclobenzaprine 06/27 Hx Tablets 5mg 60tab Take 1-2 722.93 s tablets at [place], - night for M.D. 04/24 back pain Gabapentin 06/27 Hx Capsules 100mg 90cap take 1 M54.89 s tablet Brody, - three to M.D. 08/16 four times daily for pain Cyclobenzaprine 03/21 Hx Tablets 5mg 60tab Take 1-2 722.93 HCL s tablet [place], - three M.D. 06/27 daily for back pain Gabapentin 03/21 Hx Capsules 300mg 30cap Take 1-2 724.5 s tablets at [place], - night M.D. 06/27 Percocet 12/10 Hx [...] 530.12 teaspoonfu Kj, - ls by M.D. 08/30 mouth times a day before meals [...] by mouth Kj, - twice M.D. 05/31 Proair HFA 11/16 Hx Aerosol 108(90Bas 1unit 2 puffs po e) mcg/ac s q4h prn Kj, - M.D. 06/27 Ibuprofen 10/31 Hx Tablets 800mg 60tab take 1 s tablet Kj, - three M.D. 04/24 times daily with food for 20 days. Cyclobenzaprine 10/12 Hx Tablets 5mg 60tab Take 1-2 722.93 Tarsha HCL /2011 s tablet Kj, - three M.D. 02/03 times daily for back pain Tramadol HCL 10/12 Hx Tablets 50mg 60tab take 1-2 722.93 Tarsha s tablets by Kj, - mouth M.D. 08/30 every hours as needed Hydrocodone/Acet 07/11 Hx Tablets 5-325mg 30tab 1 tablet 724.5 Milagros aminophen /2011 s every 4 - Cotton, - 6 hours as M.D. 09/12 needed pain Cyclobenzaprine 07/11 Hx Tablets 5mg 30tab 1 by mouth 724.5 Milagros HCL /2011 s at bedtime Cotton, - as needed M.D. 09/12 for pain Medrol Dosepak 07/11 Hx Tablets 4mg 1pak as 724.5 Milagros /2012 Josh Sosa MGale 09/12 Citalopram 06/09 Hx Tablets 20mg 30tab 1 po qd 296.31 T[place]ah Hydrobromide s Josh Underwood M.DDoug 09/02 Citalopram 05/10 Hx Tablets 10mg 30tab take 2 296.31 Tarsha Hydrobromide s tablet Kj, - daily. M.D. 07/05 Lexapro 04/26 Hx Tablets 10mg 60tab 1 tablet 296.31 s daily for Kj, - 1 week, M.DDoug 05/10 then tablets daily Ibuprofen 04/12 Hx Tablets 600mg 21tab 1 tablet 733.6 s three Kj, - times M.D. 05/10 daily food x 7 days Vitamin D-1000 04/12 Hx Tablets 1000Unit 90tab 1 po qd V45.86 s Josh UnderwoodDDoug 09/12 Multivitamins 04/12 Hx Tablets 90tab 1 po qd V45.86 s Josh Underwood M.DDoug 05/10 Calcium Citrate 04/12 Hx Tablets 950mg 180ta Take 2 V45.86 bs tablets Kj, - twice M.D. 09/12 Iron Supplement 03/29 Hx Tablets 375mg po qd Josh Underwood.DDoug 04/12 Iron 03/29 Hx Tablets 325(65Fe) 60tab 1 tablet 281.9 mg s by mouth Kj, - twice M.D. 04/26 Ambien Hx Tablets 5mg 30tab 1 po Unknown / s tablet at - bedtime 01/07 Trazodone HCL Hx Tablets 50mg 30tab take 1/2 Unknown /0000 s tablet at - bedtime, 09/12 1 time Vicodin Hx Tablets 5-500mg 30tab 1-2 by Unknown /0000 s mouth - every 4-6 /2011 needed for pain Prilosec 00/[address] 20mg 30cap 1 po [...] Childrens /0000 ts take. - 08/30 Prilosec / Hx Capsules DR 40mg 90cap 1 po qd Unknown /0000 s - 12/10 Percocet Hx Tablets 5-325mg 60tab 1-2 by Unknown /0000 s mouth - every to 03/03 6 hours as needed pain Iron Hx Tablets 325(65Fe) 1 by mouth Unknown /0000 mg every day - 06/24 B-12 Hx Tablets Sub 500mcg 2 by mouth Unknown Microlozenge /0000 every day - 04/08 Biotin 00 Hx Tablets 1000mcg Is Not Unknown /0000 USINGonce - a day 10/13 Vitamin E 00 Hx Capsules 100Unit Is Not Unknown /0000 USINGonce - a day 10/13 Vitamin 00/00 Hx Tablets 1 by mouth Unknown B-Complex /0000 every day - 10/13 Aspirin Adult Hx Tablets DR 81mg 1 by mouth Unknown Low Dose /0000 every day - 11/09 Ranitidine HCL 0000 Hx Tablets 75mg 1 daily in Unknown /0000 the - morning 03/27 Beet Root 00/00 Hx one tab Unknown /0000 daily - 11/09 Oxycodone HCL 00/00 Hx Tablets 5mg 1-2 tabs Unknown /0000 by mouth - every 4-6 11/09 hours needed Imipramine HCL 00 Hx Tablets 25mg 1 @hs for Unknown /0000 a week - 11/19 Immunizations CPT Code Status Date Vaccine Lot # [id number] Given 09/28/2015 Pneumonia Vaccine [id number] Given 03/31/2014 Flu Vaccine Split Virus Preservative Free For [id number] Indiv 3Yr Older Vital Signs Date Vital Result Comment 11/20/2017 Height 65 inches 5'5" Weight 218.00 lb Heart Rate 64 /min BP Systolic Sitting 118 mmHg BP Diastolic Sitting 70 mmHg Respiratory Rate 16 /min Pain Level 9 BMI (Body Mass Index) 36.3 kg/m2 11/19/2017 Height 65 inches 5'5" Weight 218.00 lb Heart Rate 77 /min BP Systolic Sitting 110 mmHg BP Diastolic Sitting 72 mmHg Body Temperature 97.7 F O2 % BldC Oximetry 96 % BMI (Body Mass Index) 36.3 kg/m2 11/01/2017 Height 65 inches 5'5" Weight 217.00 [...] Result H/L Range Note Laboratory test finding 11/06/2017 Point of Care 68 mg/dL Low 70-100 1 Glucose CBC Auto Diff 11/06/2017 White Blood Count 4.4 10^3/uL 3.5-10.8 Red Blood Count 4.08 10^6/uL 4.00-5.40 Hemoglobin 13.2 g/dL 12.0-16.0 Hematocrit 38 % 35-47 Mean Corpuscular Volume 93 fL 80-97 Mean Corpuscular Hemoglobin 32 pg High 27-31 Mean Corpuscular HGB Conc 35 g/dL 31-36 Red Cell Distribution Width 14 % 10.5-15 Platelet Count 171 10^3/uL 150-450 Mean Platelet Volume 8.9 um3 7.4-10.4 Abs Neutrophils 2.0 10^3/uL 1.5-7.7 Abs Lymphocytes 1.6 10^3/uL 1.0-4.8 Abs Monocytes 0.5 10^3/uL 0-0.8 Abs Eosinophils 0.1 10^3/uL 0-0.6 Abs Basophils 0 10^3/uL 0-0.2 Abs Nucleated RBC 0 10^3/uL Granulocyte % 46.8 % 38-83 Lymphocyte % 37.5 % 25-47 Monocyte % 11.5 % High 0-7 Eosinophil % 3.1 % 0-6 Basophil % 1.1 % 0-2 Nucleated Red Blood Cells % 0 Laboratory test finding 11/06/2017 Lactic Acid 0.5 mmol/L 0.5-2.0 2 Comp Metabolic Panel 11/06/2017 Sodium 138 mmol/L 135-145 Potassium 3.9 mmol/L 3.5-5.0 Chloride 104 mmol/L 101-111 Co2 Carbon Dioxide 28 mmol/L 22-32 Anion Gap 6 mmol/L 2-11 Glucose 90 mg/dL 70-100 Blood Urea Nitrogen 16 mg/dL 6-24 Creatinine 0.85 mg/dL 0.51-0.95 BUN/Creatinine Ratio 18.8 8-20 Calcium 9.3 mg/dL 8.6-10.3 Total Protein 6.7 g/dL 6.4-8.9 Albumin 3.9 g/dL 3.2-5.2 Globulin 2.8 g/dL 2-4 Albumin/Globulin Ratio 1.4 1-3 Total Bilirubin 0.40 mg/dL 0.2-1.0 Alkaline Phosphatase 61 U/L 34-104 Alt 18 U/L 7-52 Ast 18 U/L 13-39 Egfr Non- 69.2 >60 Egfr 89.0 >60 3 Laboratory test finding 11/06/2017 Magnesium 2.2 mg/dL 1.9-2.7 Troponin-I (TnI) 0.00 ng/mL <0.04 TSH (Thyroid Stim Horm) 1.38 mcIU/mL 0.34-5.60 Lipid Profile (Trig/Chol/HDL) 11/06/2017 Triglycerides 155 mg/dL 4 Cholesterol 218 mg/dL 5 HDL Cholesterol 47.2 mg/dL 6 LDL Cholesterol 140 mg/dL 7 Urinalysis Profile 11/06/2017 Urine Color Straw Urine Appearance Clear Urine Specific [place] 1.010 1.010-1.030 Urine pH 7.0 5-9 Urine Urobilinogen Negative Negative Urine Ketones Negative Negative Urine Protein Negative Negative Urine Leukocytes Negative Negative Urine Blood 2+ Negative Urine Nitrite Negative Negative Urine Bilirubin Negative Negative Urine Glucose Negative Negative Urine White Blood Cell Absent Absent Urine Red Blood Cell 1+(3-5/hpf) Absent Urine Bacteria Absent Absent Urine Squamous Epithelial Cell Present Absent Type & Screen 11/06/2017 Patient Blood Type A Positive Antibody Screen NEGATIVE Laboratory test finding 08/09/2017 Lipase 23 U/L 11.0-82.0 Comp Metabolic Panel 08/09/2017 Sodium 136 mmol/L [...] Egfr Non- 74.2 >60 Egfr 95.4 >60 8 CBC Auto Diff 08/09/2017 White Blood Count [...] 0-2 Nucleated Red Blood Cells % 0.1 Urine Culture And Sensitivities 08/09/2017 Urine Culture SEE RESULT BELOW 9 Urinalysis Profile 08/09/2017 Urine Color Colorless Urine Appearance Clear Urine Specific [place] 1.004 Low 1.010-1.030 Urine pH 6.0 5-9 Urine Urobilinogen Negative Negative Urine Ketones Negative Negative Urine Protein Negative Negative Urine Leukocytes Negative Negative Urine Blood 2+ Negative Urine Nitrite Negative Negative Urine Bilirubin Negative Negative Urine Glucose Negative Negative Urine White Blood Cell Trace(0-5/hpf) Absent Urine Red Blood Cell Trace(0-2/hpf) Absent Urine Bacteria Absent Absent Laboratory test finding 07/17/2017 Uric Acid 4.9 [...] finding 05/20/2017 Rapid Strep Molecular Negative Negative 10 Basic Metabolic Panel 03/12/2017 Sodium 139 mmol/L 133-145 Potassium 4.0 mmol/L 3.5-5.0 Chloride 105 mmol/L 101-111 Co2 Carbon Dioxide 29 mmol/L 22-32 Anion Gap 5 mmol/L 2-11 Glucose 93 mg/dL 70-100 Blood Urea Nitrogen 18 mg/dL 6-24 Creatinine 0.76 mg/dL 0.51-0.95 BUN/Creatinine Ratio 23.7 High 8-20 Calcium 8.9 mg/dL 8.6-10.3 Egfr Non- 78.7 >60 Egfr 101.2 >60 11 Laboratory test finding 03/12/2017 Magnesium 2.2 mg/dL 1.9-2.7 Lipid Profile (Trig/Chol/HDL) 03/12/2017 Triglycerides 121 mg/dL 12 Cholesterol 194 mg/dL 13 HDL Cholesterol 47.1 mg/dL 14 LDL Cholesterol 123 mg/dL 15 CBC Auto Diff 10/06/2016 White Blood Count [...] finding 10/06/2016 Lactic Acid 0.5 mmol/L 0.5-2.0 16 Comp Metabolic Panel 10/06/2016 Sodium 138 mmol/L [...] Egfr Non- 71.4 >60 Egfr 91.8 >60 17 Laboratory test finding 10/06/2016 Magnesium 2.2 mg/dL 1.9-2.7 Troponin-I (TnI) 0.00 ng/mL <0.04 18 TSH (Thyroid Stim Horm) 1.63 mcIU/mL 0.34-5.60 Lipid Profile (Trig/Chol/HDL) 10/03/2016 Triglycerides 107 mg/dL 19 Cholesterol 248 mg/dL 20 HDL Cholesterol 52.8 mg/dL 21 LDL Cholesterol 174 mg/dL 22 Comp Metabolic Panel 02/18/2016 Sodium 139 mmol/L 133-145 23 Potassium 3.6 mmol/L 3.5-5.0 23 Chloride 102 mmol/L 101-111 23 Co2 Carbon Dioxide 32 mmol/L 22-32 23 Anion Gap 5 mmol/L 2-11 23 Glucose 73 mg/dL 70-100 23 Blood Urea Nitrogen 15 mg/dL 6-24 23 Creatinine 0.77 mg/dL 0.51-0.95 23 BUN/Creatinine Ratio 19.5 8-20 23 Calcium 9.5 mg/dL 8.6-10.3 23 Total Protein 7.4 g/dL 6.4-8.9 23 Albumin 4.5 g/dL 3.2-5.2 23 Globulin 2.9 g/dL 2-4 23 Albumin/Globulin Ratio 1.6 1-3 23 Total Bilirubin 0.40 mg/dL 0.2-1.0 23 Alkaline Phosphatase 74 U/L 34-104 23 Alt 13 U/L 7-52 23 Ast 18 U/L 13-39 23 Egfr Non- 78.1 >60 23 Egfr 100.5 >60 23, 24 Laboratory test finding 02/18/2016 Uric Acid 4.1 mg/dL 2.3-6.6 23, 25 CBC Auto Diff 02/18/2016 White Blood Count 4.3 10^3/uL 3.5-10.8 23 Red Blood Count 4.48 10^6/uL 4.0-5.4 23 Hemoglobin 14.1 g/dL 12.0-16.0 23 Hematocrit 41 % 35-47 23 Mean Corpuscular Volume 92 fL 80-97 23 Mean Corpuscular Hemoglobin 31 pg 27-31 23 Mean Corpuscular HGB Conc 34 g/dL 31-36 23 Red Cell Distribution Width 14 % 10.5-15 23 Platelet Count 192 10^3/uL 150-450 23 Mean Platelet Volume 11 um3 High 7.4-10.4 23 Abs Neutrophils 2.1 10^3/uL 1.5-7.7 23 Abs Lymphocytes 1.7 10^3/uL 1.0-4.8 23 Abs Monocytes 0.3 10^3/uL 0-0.8 23 Abs Eosinophils 0.1 10^3/uL 0-0.6 23 Abs Basophils 0 10^3/uL 0-0.2 23 Abs Nucleated RBC 0.01 10^3/uL 23 Granulocyte % 48.0 % 38-83 23 Lymphocyte % 39.7 % 25-47 23 Monocyte % 8.1 % 1-9 23 Eosinophil % 3.3 % 0-6 23 Basophil % 0.9 % 0-2 23 Nucleated Red Blood Cells % 0.1 23 Laboratory test finding 02/18/2016 Erythrocyte Sed Rate 39 mm/Hr High 0- 30 23, 26 Lyme Disease Serology Negative Negative 23, 27 Factor 8 Profile 01/19/2016 Coagulation Factor VIII Activi 98 % 55 - 200 von Willebrand Factor Antigen 82 % 55 - 200 VonWillibrand Factor Activity 81 % 55 - 200 von Willebrand Panel Interp See Comment 28 Laboratory test finding 01/19/2016 Haptoglobin 134 mg/dL 30 - 200 29 Laboratory test finding 01/19/2016 LDH 192 U/L [...] 01/17/2016 Hepatitis B Dna Undetected IU/mL Undetected 30 finding Quantitative Hepatitis Be Antigen Negative Negative 31 Laboratory test finding 01/13/2016 Hepatitis B Surface Ag Nonreactive Nonreactive Hepatitis B Core AB Igm Nonreactive Nonreactive Hepatitis B Core AB Total Positive Negative 32 Hepatitis B Brittany AB Titer 01/01/2016 Hepatitis B Surface AB Reactive Nonreactive 33 Hep B Surf AB Level > 1000.00 mIU/mL <12 33, 34 Urine Culture And 01/01/2016 Urine Culture SEE RESULT 35, 36 Sensitivities BELOW CBC Auto Diff 12/07/2015 White [...] Color Straw Urine Appearance Clear Urine Specific [place] 1.012 1.010-1.030 Urine pH 6.0 5-9 Urine [...] finding 12/07/2015 Lactic Acid 1.6 mmol/L 0.5-2.0 37 Troponin-I (TnI) 0.00 ng/mL <0.03 38 CKMB 12/07/2015 CKMB ng/mL 2.3 ng/mL 0.6-6.3 [...] Egfr Non- 84.4 >60 Egfr 108.6 >60 39 Laboratory test finding 12/07/2015 Lipase 34 U/L [...] Egfr Non- 78.1 >60 Egfr 100.5 >60 40 Laboratory test finding 09/28/2015 TSH (Thyroid Stim 1.25 ?IU/mL 0.34- 5.60 Horm) Vitamin B12 And Folate 09/28/2015 Vitamin B12 375 pg/mL 180-914 41 Serum Folic Acid (Folate) 11.27 ng/mL >3.99 Laboratory test 04/14/2015 Cytology Non-Brush Machine Setter SEE RESULT BELOW 42 finding Laboratory test 04/08/2015 Rapid Group A [...] Egfr Non- 77.3 >60 Egfr 99.4 >60 43 Laboratory test finding 12/23/2014 Lipase 20 U/L 11.0-82.0 C Reactive Protein 22.43 mg/L High < 5.00 44 HCG Qualitative Negative Negative Urinalysis Profile 12/23/2014 Urine Color Colorless Urine Appearance Clear Urine Specific [place] 1.017 1.010-1.030 Urine pH 6.0 5-9 Urine [...] 12/23/2014 Urine Culture And SEE RESULT BELOW 45 Sensitivities Laboratory test finding 12/23/2014 Throat Beta Strep Culture SEE RESULT BELOW 46 Urinalysis Profile 09/14/2014 Urine Color Straw Urine Appearance Clear Urine Specific [place] 1.011 1.010-1.030 Urine pH 7.0 5-9 Urine [...] Culture And 09/14/2014 Urine Culture (SEE NOTE) 47 Sensitivities CBC Auto Diff 09/14/2014 White Blood [...] Dimer Quantitative 219 ng/mL Less Than 230 48 Lactic Acid 0.7 mmol/L 0.5-2.2 B Type Natriuretic Peptide 44 pg/mL 49 Comp Metabolic Panel 09/14/2014 Sodium 138 mmol/L [...] Egfr Non- 76.1 >60 Egfr 97.9 >60 50 Laboratory test finding 09/14/2014 Magnesium 2.1 mg/dL 1.9-2.7 Lipase 27 U/L 11.0-82.0 Troponin I 0.00 ng/mL <0.03 51 TSH (Thyroid Stimulating Horm) 0.93 IU/mL 0.34-5.60 C Reactive Protein 2.46 mg/L < 5.00 52 CBC Auto Diff 09/12/2014 White Blood Count [...] Egfr Non- 68.1 >60 Egfr 87.6 >60 53 Laboratory test finding 09/12/2014 Lipase 19 U/L 11.0-82.0 C Reactive Protein 4.85 mg/L < 5.00 54 H Pylori Iga 09/08/2014 Helicobacter pylori IgA Ab Negative Negative H pylori IgA Ab Index 1.93 55 H.Pylori Igg AB 09/08/2014 Helicobacter pylori IgG Ab Negative Negative H pylori IgG AB Index 2.19 56 H.Pylori Igm AB 09/08/2014 Helicobacter pylori IgM Ab Negative Negative H pylori IgM AB Index 23.90 57 Laboratory test finding 08/21/2014 C. difficile Amplified Dna (SEE NOTE) 58 Entamoeba histolytica Antigen NOT DETECTED 59 E.coli O157:H7 Culture (SEE NOTE) 60 O&P Ova & Parasites Full 08/21/2014 Ova Parasite Concen (SEE NOTE) 61 Full Laboratory test finding 08/21/2014 Stool Culture (SEE NOTE) 62 CBC Auto Diff 08/14/2014 White Blood Count [...] 08/14/2014 Activated Partial 35.1 seconds 26.0- 36.3 63 Thrombo Time Comp Metabolic Panel 08/14/2014 Sodium [...] Egfr Non- 82.1 >60 Egfr 105.6 >60 64 Laboratory test finding 08/14/2014 TSH (Thyroid Stimulating 2.37 IU/mL 0.34-5.60 Horm) Creatinine 06/24/2014 Creatinine 0.79 mg/dL 0.51-0.95 Egfr Non- 76.1 >60 Egfr 97.9 >60 65 Laboratory test finding 06/24/2014 Blood Urea Nitrogen 15 mg/dL 6-24 Comp Metabolic Panel 02/06/2014 Sodium 138 mmol/L 133-145 66 Potassium 3.9 mmol/L 3.7-5.6 66 Chloride 102 mmol/L 101-111 66 Co2 Carbon Dioxide 31 mmol/L 22-32 66 Anion Gap 5 mmol/L 2-11 66 Glucose 83 mg/dL 70-100 66 Blood Urea Nitrogen 14 mg/dL 6-24 66 Creatinine 0.70 mg/dL 0.51-0.95 66 BUN/Creatinine Ratio 20.0 8-20 66 Calcium 9.0 mg/dL 8.6-10.3 66 Total Protein 6.8 g/dL 6.4-8.9 66 Albumin 4.1 g/dL 3.2-5.2 66 Globulin 2.7 g/dL 2-4 66 Albumin/Globulin Ratio 1.5 1-3 66 Total Bilirubin 0.50 mg/dL 0.2-1.0 66 Alkaline Phosphatase 63 U/L 34-104 66 Alt 19 U/L 7-52 66 Ast 18 U/L 13-39 66 Egfr Non- 87.9 >60 66 Egfr 113.0 >60 66, 67 Lipid Profile (Trig/Chol/HDL) 02/06/2014 Triglycerides 181 mg/dL 66, 68 Cholesterol 192 mg/dL 66, 69 HDL Cholesterol 52.3 mg/dL 66, 70 LDL Cholesterol 104 mg/dL 66, 71 Laboratory test 10/31/2013 Cytology RUN DATE: finding <SEE NOTE> HPV High Risk 10/31/2013 Human Papillomavirus See Comment 73 Source HPV High Risk Type 16, PCR Positive Negative HPV High Risk Type 18, PCR Negative Negative HPV Other Risk types Negative Negative 74 Laboratory test finding 09/30/2013 Vitamin B12 290 pg/mL 180-914 75 Ua Routine 09/12/2013 Ua Specific [place] 1.020 Ua PH 5 Ua Color yellow [...] Egfr Non- 79.9 >60 Egfr 102.8 >60 76 Manual Differential 09/06/2013 Neutrophil % 43 % 38-83 Band % 1 % 0-8 Lymphocytes % 42 % 25-47 Monocytes % 5 % 0-13 Eosinophils % 5 % 0-6 Basophil % 2 % 0-2 Reactive Lymph % 2 % 0-6 RBC Morphology Normal Normal Urinalysis 09/06/2013 Urine Color Yellow Urine Appearance Clear Urine Specific [place] 1.021 1.010-1.030 Urine Esterase 1+ Negative Urine [...] And Sensitivities 09/06/2013 Urine Culture (SEE NOTE) 77 Iron & Iron Binding Capacity 07/01/2013 Iron 95 g/dL 50-212 Unsaturated Iron Binding 349 g/dL Total Iron Binding Capacity 444 g/dL 250-450 % Iron Saturation 21 % 15-55 Laboratory test finding 07/01/2013 Ferritin 14.2 ng/mL 11-307 78 CBC Auto Diff 07/01/2013 White Blood Count [...] finding 07/01/2013 Vitamin B12 378 pg/mL 180-914 79 Vitamin D, 25 Hydroxy 07/01/2013 25-Hydroxy Vitamin D2 <4.0 ng/mL 25-Hydroxy Vitamin D3 27 ng/mL 25-Hydroxy Vitamin D Total 27 ng/mL 80 Lipid Profile (Trig/Chol/HDL) 07/01/2013 Triglycerides 57 mg/dL 81 Cholesterol 223 mg/dL 82 HDL Cholesterol 66.9 mg/dL 83 LDL Cholesterol 145 mg/dL 84 Laboratory test finding 07/01/2013 Glucose 83 mg/dL 70-100 85 TSH (Thyroid Stimulating Horm) 1.61 IU/mL 0.34-5.60 86 Urinalysis 03/21/2013 Urine Color Yellow Urine Appearance Clear Urine Specific [place] 1.024 1.010-1.030 Urine Esterase 2+ Negative Urine Nitrate Negative Negative Urine Urobilinogen Negative E.U./dL Negative Urine Protein Negative mg/dL Negative Urine pH 5.5 5-9 Urine Blood 2+ Negative Urine Ketones Negative mg/dL Negative Urine Bilirubin Negative Negative Urine Glucose Negative mg/dL Negative Urine Microscopic 03/21/2013 Urine WBC 2+ (>10-30 /hpf) None Seen 87 Urine RBC 1+ (<3 /hpf) None Seen Urine Mucus Present /lpf Absent Bacteria Urine 1+ None Seen Urine Culture And Sensitivities 03/21/2013 Urine Culture (SEE NOTE) 88 Urinalysis W/Microscopic 03/10/2013 Urine Color (SEE NOTE) 89 Urine WBC 2+ (>10-30 /hpf) None Seen 90 Urine RBC 1+ (<3 /hpf) None Seen Urine Epithelial Cells 2+ Squamous /hpf None Seen Bacteria Urine 1+ None Seen Laboratory test finding 09/18/2012 Glucose 84 mg/dL 70-100 91 Lipid Profile (Trig/Chol/HDL) 09/18/2012 Triglycerides 109 mg/dL 40-200 Cholesterol 234 mg/dL High Less than 200 HDL Cholesterol 52 mg/dL 40-60 92 Cholesterol/HDL Ratio 4.5 Average High 1-4.44 LDL Cholesterol 160.2 mg/dL High Less Than 100 93 Laboratory test finding 08/30/2012 TSH (Thyroid Stimulating 0.84 miu/mL 0.34-5.60 Horm) Follicle Stimulating Hormone 23.84 miu/mL 94 CBC Auto Diff 08/30/2012 White Blood Count [...] 0-2 Nucleated Red Blood Cells % 0 Ua Routine 01/31/2012 Ua Specific [place] 1.015 Ua PH 5 Ua Color yellow Ua Appera clear Ua WBC neg Ua Protein neg Ua Glucose neg Ua Ketones neg Ua Bilirubin neg Ua Urobilinogen neg Ua Nitrite neg Ua Occult Blood small Vitamin D, 25 Hydroxy 01/31/2012 25-Hydroxy Vitamin D2 <4.0 ng/mL () 25-Hydroxy Vitamin D3 27 ng/mL () 25-Hydroxy Vitamin D Total 27 ng/mL () 95 CBC With Manual Diff 01/31/2012 White Blood [...] Lymph 1 % 0-6 RBC Morphology NORMAL Protime 01/31/2012 Inr 0.89 0.88-1.13 96 Protime 10.6 SEC 10.3-13.5 97 Laboratory test finding 01/31/2012 PTT (Aptt) 28.1 SEC 25.1-38.5 Basic Metabolic Panel 01/31/2012 Sodium 138 mmol/L 135-145 Potassium 3.8 mmol/L 3.5-5.0 Chloride 103 mmol/L 101-111 Co2 (Carbon Dioxide) 30.0 mmol/L 22-32 Anion Gap 5.0 mmol/L 2-11 98 Glucose 77 mg/dL 70-100 BUN 15 mg/dL 6-24 Creatinine 0.6 mg/dL 0.50-1.40 One Over Creatinine 1.66 BUN/Creatinine Ratio 25.0 High 8-20 Calcium 9.1 mg/dL 8.1-9.9 eGFR Non- 105.8 > 60 eGFR 136.1 > 60 99 Laboratory test finding 01/31/2012 BHCG Quantitative < 2.1 MIU/ML 0-5 100 Laboratory test finding 07/05/2011 TSH 1.53 MIU/ML 0.34-5.60 Thyroxine Free 0.56 ng/dL Low 0.61-1.24 CBC Auto Diff 04/18/2011 White Blood Count [...] Eosinophils 0.2 0-0.6 Abs Basophils 0 0-0.2 Laboratory test finding 04/18/2011 Hepatitis C Antibody Nonreactive Nonreactive Hepatitis B Surface Ag Nonreactive Nonreactive Hepatitis B Core AB, Total Positive Negative 101 Hepatitis Be Antibodies Positive Negative 102 Iron & Iron Binding Capacity 04/18/2011 Iron Total 69 g/dL 28-170 Unsaturated Iron Binding 452 g/dL Total Iron Binding Capacity 521 g/dL High 250-450 % Iron Saturation 13 % Low 15-55 Laboratory test finding 04/18/2011 Ferritin < 10 NG/ML Low 11.0-307 Hepatitis B Surface AB 04/18/2011 Hepatitis B Surface AB Reactive Nonreactive Hbsab Index > 100.00 103 Laboratory test finding 04/18/2011 CPK (Creatine Kinase) 108 U/L 0-170 Lipid Profile (Trig/Chol/HDL) 04/18/2011 Triglyceride 122 mg/dL 40-200 Cholesterol 240 mg/dL High Less Than 200 104 High Density Lipoprotein 65 mg/dL High 40-60 105 Cholesterol/HDL Ratio 3.69 AVERAGE 1-4.44 Low Density Lipoprotein 151 mg/dL High Less Than 100 106 Comp Metabolic Panel 04/18/2011 Sodium 141 mmol/L 135-145 Potassium 4.4 mmol/L 3.5-5.0 Chloride 103 mmol/L 101-111 Co2 (Carbon Dioxide) 31.0 mmol/L 22-32 Anion Gap 7.0 mmol/L 2-11 107 Glucose 93 mg/dL 70-100 BUN 12 mg/dL 6-24 Creatinine 0.8 mg/dL 0.50-1.40 One Over Creatinine 1.25 BUN/Creatinine Ratio 15.0 8-20 Calcium 9.4 mg/dL 8.1-9.9 Total Protein 6.9 GM/DL 6.2-8.1 Albumin 4.0 GM/DL 3.6-5.4 Globulin 2.9 GM/DL 2-4 Albumin/Globulin Ratio 1.4 1-3 Bilirubin Total 0.7 mg/dL 0.4-1.5 108 Alkaline Phosphatase 62 U/L 30-110 Alt (SGPT) 22 U/L 14-54 Ast (Sgot) 21 U/L 12-42 eGFR Non- 75.9 > 60 eGFR 97.6 > 60 109 Laboratory test finding 03/29/2011 Ferritin < 10 NG/ML Low 11.0-307 Iron & Iron Binding Capacity 03/29/2011 Iron Total 67 g/dL 28-170 Unsaturated Iron Binding 460 g/dL Total Iron Binding Capacity 527 g/dL High 250-450 % Iron Saturation 13 % Low 15-55 CBC Auto Diff 03/29/2011 White Blood Count [...] Eosinophils 0.1 0-0.6 Abs Basophils 0 0-0.2 Vitamin D, 25 Hydroxy 03/29/2011 25-Hydroxy Vitamin D2 <4.0 ng/mL () 25-Hydroxy Vitamin D3 25 ng/mL () 25-Hydroxy Vitamin D Total 25 ng/mL () 110 1 Electric Sealing Machine Operator: [id number] [facility] Severe Sepsis and Septic Shock Management Bundle Measure requires all lactic acids initially measuring >2.0 mmol/L be repeated. 3 Because ethnic data is not always readily [...] 15-29 5 Kidney failure <15 (or dialysis) 4 Desirable: <150 Borderline High: 150-199 High: 200-499 Very High: >500 5 Desirable: <200 Borderline High: 200-239 High: >239 6 Low: <40 Desirable: 40-60 High: >60 7 Desirable: <100 Near Optimal: 100-129 Borderline High: 130-159 High: 160-189 Very High: >189 8 Because ethnic data is not always [...] 5 Kidney failure <15 (or dialysis) 9 SEE RESULT BELOW Name: KEENA COATES : [address]: Maco Nettles MD Acct: [id number] Unit: [id number] AGE: 57 Location: ED Re08/09/17 SEX: F Status: DEP ER SPEC: [id number] HASEEB: 08/09/17-[address]: Maco Nettles MD REQ: [id number] RECD: 08/09/17 STATUS: CELIA ERNANDEZ DR: Lui Samson MD _ SOURCE: URINE [facility]: ORDERED: Urine Culture Procedure Result Reported Site Urine Culture Final 08/11/17- 0854 ML No Growth (<1,000 CFU/mL) * ML - Main Lab . END OF REPORT DEPARTMENT OF PATHOLOGY, [address] [place] [address] Wayne Duff M.D. Director [facility] # [id number] 10 Electric Sealing Machine Operator: [id number] 11 Because ethnic data is not always readily [...] 15-29 5 Kidney failure <15 (or dialysis) 12 Desirable: <150 Borderline High: 150-199 High: 200-499 Very High: >500 13 Desirable: <200 Borderline High: 200-239 High: >239 14 Low: <40 Desirable: 40-60 High: >60 15 Desirable: <100 Near Optimal: 100-129 Borderline High: 130-159 High: 160-189 Very High: >189 16 [facility] Severe Sepsis and Septic Shock Management Bundle Measure requires all lactic acids initially measuring >2.0 mmol/L be repeated. 17 Because ethnic data is not always [...] 5 Kidney failure <15 (or dialysis) 18 99th percentile=0.04 ng/mL Troponin results at [facility] and [facility] are not interchangeable. 19 Desirable <150 Borderline high 150-199 High 200-499 Very High >500 20 Desirable <200 Borderline high 200-239 High >239 21 Low <40 Desirable: 40-60 High: >60 22 Desirable: <100 mg/dL Near Optimal: 100-129 mg/dL Borderline High: 130-159 mg/dL High: 160-189 mg/dL Very High: >189 mg/dL 23 [id number] 24 Because ethnic data is not always readily [...] 15-29 5 Kidney failure <15 (or dialysis) 25 [id number] 26 [id number] 27 Serologic response to B. burgdorferi infection is not detected, but cannot rule out early infection during which low or undetectable antibody levels to B. burgdorferi may be present. If clinically indicated, a new serum specimen should be submitted in 7-14 days. Lipemic Test Performed by: [place] [address] Sander And Polisher: Qaun Fishman II, M.D., Ph.D. 28 No laboratory evidence of von Willebrand's disease [...] not reviewed by physician. Test Performed by: [place] [address] [employer]ander And Polisher: Quan Fishman II, M.D., Ph.D. 29 Test Performed by: [place] [address] Sander And Polisher: Quan Fishman II, M.D., Ph.D. 30 Result in log IU/mL is Undetected The quantification range of this assay is 20 IU/mL to 170,000,000 IU/mL (1.30 log IU/mL to 8.23 log IU/mL). Testing was performed by the CAROL AmpliPrep/CAROL TaqMan HBV test, version 2.0 ([facility] [employer] Test Performed by: [place] [address] Sander And Polisher: Quan Fishman II, M.D., Ph.D. 31 Test Performed by: [place] [address] [employer]ander And Polisher: Quan Fishman II, M.D., Ph.D. 32 If clinically indicated, testing for Hepatitis B Core IgM antibody is necessary to differentiate between acute and past HBV infection. Test Performed by: [place] [address] Sander And Polisher: Quan Fishman II, M.D., Ph.D. 33 [id number] 34 This assay does not differentiate between reactivity due to a vaccine-induced immune response or an immune response induced by infection with HBV. 35 [id number] 36 SEE RESULT BELOW Name: KEENA COATES : [address]: Kevin Boyd MD Acct: [id number] Unit: [id number] AGE: 55 Location: [facility] Re01/01/16 SEX: F Status: DEP ER SPEC: [id number] HASEEB: 01/01/16-1749 [facility] DR: Sara Palacio NP REQ: [id number] RECD: 01/02/161934 STATUS: CELIA ERNANDEZ DR: [facility] Lui Samson MD _ [facility]: ORDERED: Urine Culture COMMENTS: [id number] Procedure Result Reported Site Urine Culture Final 01/03/16- 1457 ML No Growth (<1,000 CFU/mL) * ML - MAIN LAB ([facility]) . END OF REPORT * ML=Testing performed at Main Lab DEPARTMENT OF PATHOLOGY, [address] [place] [address] Wayne Duff M.D. Director [facility] # [id number] 37 [facility] Severe Sepsis and Septic Shock Management Bundle Measure requires all lactic acids initially measuring >2.0 mmol/L be repeated. 38 Reference Range and Interpretation: TnI (ng/mL) Interpretation Less Than 0.03 ng/mL Not supportive of diagnosis of UT 0.03 - 0.50 ng/mL Indeterminate: suggest serial studies if clinically indicated. Greater than 0.5 ng/mL Consistent with diagnosis of [place] 39 Because ethnic data is not always readily [...] 15-29 5 Kidney failure <15 (or dialysis) 40 Because ethnic data is not always readily [...] 15-29 5 Kidney failure <15 (or dialysis) 41 Normal Range 180 to 914 Indeterminate Range 145 to 180 Deficient Range <145 42 SEE RESULT BELOW Name: KEENA COATES : [address]: Dwight Brown MD Acct: [id number] Unit: [id number] AGE: 55 Location: LAB Re04/14/15 SEX: F Status: REG REF SPEC: [id number] HASEEB: 04/14/1552 [facility] DR: Dwight Brown MD REQ: [id number] RECD: 04/14/15 STATUS: SULTANA ERNANDEZ DR: Alcides Brody MD _ ORDERED: THIN PREP NON G FINAL DIAGNOSIS Urine, voided: Negative for malignant cells. URINE VOID CLINICAL HISTORY Gross hematuria GROSS DESCRIPTION 5 mls of cloudy peach colored urine. Signed (signature on file) Wayne Duff MD 1347 END OF REPORT * ML=Testing performed at Main Lab DEPARTMENT OF PATHOLOGY, [address] [place] [address] Wayne Duff M.D. Director [facility] # [id number] 43 Because ethnic data is not always [...] 5 Kidney failure <15 (or dialysis) 44 Acute inflammation: >10.00 45 SEE RESULT BELOW Name: KEENA COATES : [address]: Eusebio Matute MD Acct: [id number] Unit: [id number] AGE: 54 Location: ED Re12/23/14 SEX: F Status: DEP ER SPEC: [id number] HASEEB: 12/24/[address]: Gene Godoy DO REQ: [id number] RECD: 12/24/14 STATUS: COMP [facility] DR: Alcides Brody MD _ SOURCE: URINE [facility]: ORDERED: Urine Culture Procedure Result Verified Site Urine Culture Final 12/26/14- 1034 ML Organism 1 NORMAL CHAVEZ [place] Count 25-50,000 (Moderate) CFU/ML * ML - MAIN LAB ([facility]) . END OF REPORT * ML=Testing performed at Main Lab DEPARTMENT OF PATHOLOGY, [address] [place] [address] Wayne Duff M.D. Director [facility] # [id number] 46 SEE RESULT BELOW Name: KEENA COATES : [address]: Eusebio Garcia MD Acct: [id number] Unit: [id number] AGE: 54 Location: [facility] Re12/23/14 SEX: F Status: DEP ER SPEC: [id number] HASEEB: 12/23/14-2034 [facility] DR: Eusebio Garcia MD REQ: [id number] RECD: 12/24/14-1056 STATUS: CELIA ERNANDEZ DR: [facility] Alcides Brody MD _ SOURCE: THROAT SPDESC: ORDERED: Throat Beta Str Procedure Result Verified Site Throat Beta Strep Culture Final 12/26/14- 0850 ML Negative For Group A Beta Streptococcus * ML - MAIN LAB ([facility]) . END OF REPORT * ML=Testing performed at Main Lab DEPARTMENT OF PATHOLOGY, [facility] [place] [address] Wayne Duff M.D. Director [facility] # [id number] RUN DATE: 09/16/14 [facility] LAB LIVE PAGE 1 RUN TIME: [address] [facility] [place], [place] [address] Specimen Inquiry Name: KEENA COATES : [address]: Quan Guerrero MD Acct: [id number] Unit: [id number] AGE: 54 Location: ED Re09/14/14 SEX: F Status: DEP ER SPEC: [id number] HASEEB: 09/14/14 [facility] [address]: Quan Guerrero MD REQ: [id number] RECD: 09/14/14 STATUS: CELIA ERNANDEZ DR: Alcides Brody MD _ SOURCE: URINE [facility]: ORDERED: Urine Culture Procedure Result Verified Site Urine Culture Final 09/16/14- 825 ML Organism 1 NORMAL CHAVEZ [place] Count 10-25,000 (Moderate) CFU/ML * ML - MAIN LAB ([facility]) . END OF REPORT * ML=Testing performed at Main Lab DEPARTMENT OF PATHOLOGY, [address] [place] [address] Wayne Duff M.D. Director [facility] # [id number] 48 Please note: The following may produce a false positive D Dimer test: - Rheumatoid factor greater than 60 IU/ml - Plasma hemoglobin greater than 0.05 gm/dl - Bilirubin greater than 50 mg/dl - Lipids greater than 1000 mg/dl - FDP greater than 20 ug/ml 49 >100 to <200 pg/mL: likely compensated congestive heart failure (CHF) 200 to 400 pg/mL: likely moderate CHF >400 pg/mL: likely moderate to severe CHF [facility] 50 Because ethnic data is not always readily [...] 15-29 5 Kidney failure <15 (or dialysis) 51 Reference Range and Interpretation: TnI (ng/mL) Interpretation Less Than 0.03 ng/mL Not supportive of diagnosis of [place] 0.03 - 0.50 ng/mL Indeterminate: suggest serial studies if clinically indicated. Greater than 0.5 ng/mL Consistent with diagnosis of [place] 52 Acute inflammation: >10.00 53 Because ethnic data is not always readily [...] 15-29 5 Kidney failure <15 (or dialysis) 54 Acute inflammation: >10.00 55 Results with Index Values of <18.00 are negative. Test Performed by: [place] [address] [employer] Polisher: Quan Fishman II, M.D., Ph.D. 56 Results with Index Values of <8.95 are negative. Test Performed by: [place] [address] [employer] And Polisher: Quan Fishman II, M.D., Ph.D. 57 Results with Index Values of <36.00 are negative. Test Performed by: [facility] - [address] [address] Sander And Polisher: Quan Fishman II, M.D., Ph.D. 58 RUN DATE: 08/21/14 [facility] LAB LIVE PAGE 1 RUN TIME: [address] [place] [address] Specimen Inquiry Name: KEENA COATES : [address]: Alcides Brody MD Acct: [id number] Unit: [id number] AGE: 54 Location: [facility] Re08/21/14 SEX: F Status: REG REF SPEC: [id number] HASEEB: 08/21/14-1030 [facility] [address]: Alcides Brody MD REQ: [id number] RECD: 08/21/14 STATUS: RES _ SOURCE: STOOL SPDESC: ORDERED: E.coli O157:H7, Stool Culture, C. diff Amp DNA, O P (Full) QUERIES: Provider Requisition # [id number] Procedure Result Verified Site E.coli O157:H7 Culture [...] at Main Lab DEPARTMENT OF PATHOLOGY, [facility] [place] [address] Wayne Duff M.D. Director [facility] # [id number] RUN DATE: 08/21/14 [facility] LAB LIVE PAGE 2 RUN TIME: [address] [facility] [place], [place] [address] Specimen Inquiry Patient: KEENA COATES [id number] (Continued) Specimen: [id number] Collected: 08/21/14-1029 Received: 08/21/14 (Continued) Procedure Result [...] Full PENDING * ML - MAIN LAB ([facility]) . END OF REPORT * ML=Testing performed at Main Lab DEPARTMENT OF PATHOLOGY, [facility] [place] [address] Wayne Duff M.D. Director [facility] # [id number] 59 REFERENCE RANGE: NOT DETECTED The Entamoeba histolytica antigen EIA test detects only the antigen of the pathogenic E. histolytica; the non-pathogenic E. dispar is not detected. Test Performed by: [facility] [address] [place] [address] 60 RUN DATE: 08/23/14 [facility] LAB LIVE PAGE 1 RUN TIME: [address] [place] [address] Specimen Inquiry Name: KEENA COATES : [address]: Alcides Brody MD Acct: [id number] Unit: [id number] AGE: 54 Location: [facility] Re08/21/14 SEX: F Status: REG REF SPEC: [id number] HASEEB: 08/21/14-[address]: Alcides Brody MD REQ: [id number] RECD: 08/21/14 STATUS: RES _ SOURCE: STOOL SPDESC: ORDERED: E.coli O157:H7, Stool Culture, C. diff Amp DNA, O P (Full) QUERIES: Provider Requisition # [id number] Procedure Result Verified Site E.coli O157:H7 Culture [...] at Main Lab DEPARTMENT OF PATHOLOGY, [facility] [place] [address] Wayne Duff M.D. Director [facility] # [id number] RUN DATE: 08/23/14 [facility] LAB LIVE PAGE 2 RUN TIME: [address] [facility] [place], [place] [address] Specimen Inquiry Patient: KEENA COATES [id number] (Continued) Specimen: [id number] Collected: 08/21/14 Received: 08/21/14-1056 (Continued) Procedure Result Verified Site C. difficile Amplified DNA Final (continued) 08/21/14- 793 Organism 1 Neg: No C. difficile detected [...] Full PENDING * ML - MAIN LAB ([facility]) . END OF REPORT * ML=Testing performed at Main Lab DEPARTMENT OF PATHOLOGY, [facility] [place] [address] Wayne Duff M.D. Director [facility] # [id number] 61 RUN DATE: 08/25/14 [facility] LAB LIVE PAGE 1 RUN TIME: [address] [facility] [place] [address] Specimen Inquiry Name: KEENA COATES : [address]: Alcides Brody MD Acct: [id number] Unit: [id number] AGE: 54 Location: [facility] Re08/21/14 SEX: F Status: REG REF SPEC: [id number] HASEEB: 08/21/14-[address]: Alcides Brody MD REQ: [id number] RECD: 08/21/14 STATUS: COMP _ SOURCE: STOOL SPDESC: ORDERED: E.coli O157:H7, Stool Culture, C. diff Amp DNA, O P (Full) QUERIES: Provider Requisition # [id number] Procedure Result Verified Site E.coli O157:H7 Culture [...] at Main Lab DEPARTMENT OF PATHOLOGY, [facility] [place] [address] Wayne Duff M.D. Director [facility] # [id number] RUN DATE: 08/25/14 [facility] LAB LIVE PAGE 2 RUN TIME: [address] [facility] [place], [place] [address] Specimen Inquiry Patient: KEENA COATES [id number] (Continued) Specimen: [id number] Collected: 08/21/14-1029 Received: 08/21/14-1056 (Continued) Procedure Result [...] at Main Lab DEPARTMENT OF PATHOLOGY, [facility] [place] [address] Wayne Duff M.D. Director [facility] # [id number] RUN DATE: 08/25/14 [facility] LAB LIVE PAGE 3 RUN TIME: [address] [facility] [place], [place] [address] Specimen Inquiry Patient: KEENA COATES [id number] (Continued) Specimen: [id number] Collected: 08/21/14 Received: 08/21/14-1056 (Continued) Procedure Result Verified Site Ova Parasite Concen Full Final (continued) 08/25/14- 1608 Final Result No Ova Parasites seen by Ethyl Acetate Concentration No Cysts or Trophs Seen on Trichrome smear * ML - MAIN LAB ([facility]) . END OF REPORT * ML=Testing performed at Main Lab DEPARTMENT OF PATHOLOGY, [address] [place] [address] Wayne Duff M.D. Director [facility] # [id number] 62 RUN DATE: 08/24/14 [facility] LAB LIVE PAGE 1 RUN TIME: 11[address] [place], [place] [address] Specimen Inquiry Name: LILIAKEENA M : [address]: Alcides Brody MD Acct: [id number] Unit: [id number] AGE: 54 Location: [facility] Re08/21/14 SEX: F Status: REG REF SPEC: [id number] HASEEB: 08/21/14-[address]: Alcides Brody MD REQ: [id number] RECD: 08/21/14 STATUS: RES _ SOURCE: STOOL SPDESC: ORDERED: E.coli O157:H7, Stool Culture, C. diff Amp DNA, O P (Full) QUERIES: Provider Requisition # [id number] Procedure Result Verified Site E.coli O157:H7 Culture [...] at Main Lab DEPARTMENT OF PATHOLOGY, [facility] [place] [address] Wayne Duff M.D. Director [facility] # [id number] RUN DATE: 08/24/14 [facility] LAB LIVE PAGE 2 RUN TIME: [address] [facility] [place], [place] [address] Specimen Inquiry Patient: KEENA COATES [id number] (Continued) Specimen: [id number] Collected: 08/21/14-1029 Received: 08/21/14-1056 (Continued) Procedure Result [...] Full PENDING * ML - MAIN LAB ([facility]) . END OF REPORT * ML=Testing performed at Main Lab DEPARTMENT OF PATHOLOGY, [address] [place] [address] Wayne Duff M.D. Director [facility] # [id number] 63 Effective July 17, 2014 at 12:00pm there is an updated reference range. 64 Because ethnic data is not always readily [...] 15-29 5 Kidney failure <15 (or dialysis) 65 Because ethnic data is not always readily [...] 15-29 5 Kidney failure <15 (or dialysis) 66 FASTING~PATIENT HAD BARIUM BEVERAGE WITH CRYSTALS AT 08:30 AM PRIOR~TO BLOODWORK 67 Because ethnic data is not always [...] 5 Kidney failure <15 (or dialysis) 68 Desirable <150 Borderline high 150-199 High 200-499 Very High >500 69 Desirable <200 Borderline high 200-239 High >239 70 Low <40 Desirable: 40-60 High: >60 71 Desirable <100 Near Optimal 100-129 Borderline high 130-159 High 160-189 Very High >189 72 RUN DATE: 11/03/13 [facility] LAB LIVE PAGE 1 RUN TIME: 0224 [address] [place], [place] [address] Specimen Inquiry Name: KEENA COATES : [address]: Tarsha Underwood MD Acct: [id number] Unit: [id number] AGE: 53 Location: [facility] Re10/31/13 SEX: F Status: REG REF SPEC: [id number] HASEEB: 10/31/[address]: Tarsha Underwood MD REQ: [id number] RECD: 10/31/13 STATUS: SOUT _ ORDERED: IMAGE ANALYSIS, HPV/Thin Prep FINAL DIAGNOSIS Negative for Intraepithelial lesion or Malignancy COMMENTS: Specimen sent to [facility] in [place], [place] on 11/03/13 by [id number] at 1220. Results will be reported separately. [...] System. Due to cytologic findings at the water resources engineer microscope, comprehensive manual rescreening by a Tailer Off may be required. The Pap Smear is [...] at Main Lab DEPARTMENT OF PATHOLOGY, [facility] [place] [address] Wanye Duff M.D. Director [facility] # [id number] 73 RESULT: Ectocervical/Endocervical 74 The following Other High Risk HPV types were not detected: 31, 33, 35, 39, 45, 51, 52, 56, 58, 59, 66, and 68 Test Performed by: [address] [address] [employer] And Polisher: Jorge Luis Ruiz III, M.D. 75 Normal Range 180 to 914 Indeterminate Range 145 to 180 Deficient Range <145 76 Because ethnic data is not always readily [...] 15-29 5 Kidney failure <15 (or dialysis) 77 RUN DATE: 09/08/13 [facility] LAB LIVE PAGE 1 RUN TIME: [address] [facility] [place], [place] [address] Specimen Inquiry Name: KEENA COATES : [address]: Vasyl Richards MD Acct: [id number] Unit: [id number] AGE: 53 Location: ED Re09/06/13 SEX: F Status: DEP ER SPEC: [id number] HASEEB: 09/06/[address]: Patrizia TSAI REQ: [id number] RECD: 09/06/13 STATUS: CELIA ERNANDEZ DR: Vasyl Underwood MD _ SOURCE: URINE SPDESC: ORDERED: Urine Culture Procedure Result Verified Site Urine Culture Final 09/08/13- 0940 ML Organism 1 NORMAL CHAVEZ [place] Count 1-10,000 (Few) CFU/ML END OF REPORT * ML=Testing performed at Main Lab DEPARTMENT OF PATHOLOGY, [facility] [place] [address] Wayne Duff M.D. Director [facility] Permit #[id number] 78 FASTING 79 Normal Range 180 to 914 Indeterminate Range 145 to 180 Deficient Range <145 80 -- REFERENCE VALUE -- 25-HYDROXY D TOTAL (D2+D3) Optimum levels in the healthy population are 20-50, patients with bone disease may benefit from higher levels within this range. Test Performed by: [place] [address] Sander And Polisher: Jorge Luis Ruiz III, M.D. 81 Desirable <150 Borderline high 150-199 High 200-499 Very High >500 82 Desirable <200 Borderline high 200-239 High >239 83 Low <40 Desirable: 40-60 High: >60 84 Desirable <100 Near Optimal 100-129 Borderline high 130-159 High 160-189 Very High >189 85 FASTING 86 FASTING 87 2+ (>10-30 /hpf) 88 RUN DATE: 03/23/13 [facility] LAB LIVE PAGE 1 RUN TIME: [address] [place] [id number] Specimen Inquiry Name: KEENA COATES : [address]: Tez Olmstead RPA- Acct: [id number] Unit: [id number] AGE: 53 Location: LAB Re03/21/13 SEX: F Status: REG REF SPEC: [id number] HASEEB: 03/21/13-[address]: Tez COWAN REQ: [id number] RECD: 03/21/13 STATUS: CELIA ERNANDEZ DR: Tarsha Underwood MD _ SOURCE: URINE SPDESC: ORDERED: Urine Culture Procedure Result Verified Site Urine Culture Final 03/23/13- 0857 ML Organism 1 NORMAL CHAVEZ [place] Count 75-100,000 (Many) CFU/ML END OF REPORT * ML=Testing performed at Main Lab DEPARTMENT OF PATHOLOGY, [address] [place] [address] Wayne Duff M.D. Director [facility] Permit #[id number] Dipstick not performed due to tech error 90 2+ (>10-30 /hpf) 91 PT IS FASTING 92 HDL Interpretation: Undesirable: High Risk: Less than 40 MG/DL Desirable: Low Risk: Greater than 60 MG/DL 93 LDL Interpretation: Low Risk Optimal Level: LDL Less than 100 MG/DL Near or Above Optimal: LDL 100-129 MG/DL Borderline High Risk: LDL 130-159 MG/DL High Risk: LDL 160-189 MG/DL Very High Risk: LDL Greater than 189 MG/DL 94 Normally menstruating females - Follicular phase 3 - 9 - Mid-cycle peak 4 - 23 - Luteal phase 1 - 6 Postmenopausal females 16 - 114 95 -- REFERENCE VALUE -- 25-HYDROXY D TOTAL (D2+D3) Optimum levels in the normal population are 25-80 Test Performed by: [place] [address] [employer]ander [employer] Polisher: Jorge Luis Ruiz III, M.D. 96 Recommended INR for Patients on Oral Anticoagulants Prophylaxis 2.0 - 3.0 Treatment of thrombosis 2.0 - 3.0 Prevention of embolism 2.0 - 3.0 Prevention of embolism from prosthetic heart valves 2.5 - 3.5 97 DIAGNOSIS,TREATMENT,AND THERAPY MUST BE BASED ON THE INR VALUE ALONE. 98 Anion gap measurement may be of limited value in the presence of any alkalosis, especially in a combined acid base disorder. . 99 Because ethnic data is not always readily [...] 15-29 5 Kidney failure <15 (or dialysis) 100 * MALES: < 5.0 MIU/ML NON FEMALES [...] confirmed by an alternate HCG method. . 101 If clinically indicated, testing for Hepatitis B Core IgM antibody is necessary to differentiate between acute and past HBV infection. Test Performed by: [facility] Dpt of Lab Med and Pathology [address] [place] [address] [employer]ander [employer] Polisher: Jorge Luis Ruiz III, M.D. 102 Test Performed by: [facility] Dpt of Lab Med and Pathology [address] [place] [address] [employer]ander [employer] Polisher: Jorge Luis Ruiz III, M.D. 103 The World Health Organization (WHO) Hepatitis B Immunoglobulin 1st International Reference Preparation (1976): The accepted criteria for immunity to HBV is anti-HBs activity greater than or equal to 10 mIU/mL. An Index Value of 1.00 is equivalent to 10 mIU/mL. Samples with an Index Value of 1.00 or greater are considered reactive (protective) in accordance with the CDC guidelines. 104 CHOLESTEROL INTERPRETATION: Desirable: Less than 200 MG/DL Borderline-High Risk: 200-239 MG/DL High-Risk: 240 MG/DL and over 105 HDL INTERPRETATION: Undesirable: High Risk: Less than 40 MG/DL Desirable: Low Risk: Greater than 60 MG/DL 106 LDL INTERPRETATION: Low Risk Optimal Level: LDL Less than 100 MG/DL Near or Above Optimal: LDL 100-129 MG/DL Borderline High Risk: LDL 130-159 MG/DL High Risk: LDL 160-189 MG/DL Very High Risk: LDL Greater than 189 MG/DL 107 Anion gap measurement may be of limited value in the presence of any alkalosis, especially in a combined acid base disorder. . 108 A metabolite of Naproxen, O-desmethylnaproxen, has been shown to interfere with the [place] method for measuring total bilirubin. Samples from patients who have taken Naproxen have shown spurious elevation in total bilirubin levels. 109 Because ethnic data is not always readily [...] 15-29 5 Kidney failure <15 (or dialysis) 110 -- REFERENCE VALUE -- 25-HYDROXY D TOTAL (D2+D3) Optimum levels in the normal population are 25-80 Test Performed by: [facility] Dpt of Lab Med and Pathology [address] [place], [place] [id number] [employer]isher: Jorge Luis Ruiz III, M.D. Procedures Date CPT Code Description Status Comment 11/20/2017 17479 Inject/Drain Joint/Bursa Completed Major W/O US 11/07/2017 65832 ECHO Transthorasic Realtime Completed 2D W Doppler & Color Flow Hosp 03/12/2017 Mammogram Completed 12/21/2015 Mammogram Completed 12/15/2014 Mammogram Completed 02/17/2014 Colonoscopy Completed 11/18/2013 Mammogram Completed 01/31/2012 53614 EKG Tracing & Interpretation Completed 12/26/2011 Mammogram Completed 08/24/[address] Encinas, 2 hyperplastic polyps per [facility] Encounters Type Date Location Provider CPT E/M Dx Office Visit 11/20/2017 9:30a [facility] [place] [address] M54.2 C.M.A. S46.012D M19.212 Office Visit 11/07/2017 1:09p [facility] Sary Lopez, 93829 R41.0 Hospitalists M.DDoug R51 R07.9 Office Visit 11/06/2017 1:08p [facility] [address] R41.0 Hospitalists R51 Office Visit 11/01/2017 1:40p [facility] Lui Samson, 77033 M51.16 Medicine - [place] Selvin Roberson M54.2 M25.512 Office Visit 10/24/2017 2:40p [facility] Medicine Lui Samson, 25619 M54.2 - Ayla Roberson M25.512 Office Visit 10/17/2017 11:30a [facility] [address] G43.009 R94.02 M54.2 R20.0 Office Visit 08/14/2017 11:00a [facility] Lui Samson, 55877 J45.909 Medicine - [place] Selvin Roberson K21.9 Office Visit 07/17/2017 8:40a [facility] Lui Samson 67805 J45.909 Medicine - [place] Selvin Roberson G47.00 K21.9 Office Visit 07/02/2017 9:45a [facility] [place], [address] Z98.84 [facility] FACS K21.9 Office Visit 04/10/2017 8:00a [facility] Lui Samson M.D. 37293 J06.9 Medicine - [address] M25.571 Office Visit 03/27/2017 2:40p [facility] Lui Samson, 57854 Z01.818 Medicine - [place] Selvin Roberson N90.3 J06.9 Office Visit 02/13/2017 11:30a [facility] [address] G43.009 R94.02 R42 R13.10 Office Visit 01/30/2017 11:20a [facility] Medicine Lui Samson M.D. 07[address] - [address] K21.9 J45.909 E66.9 G47.00 Office Visit 11/03/2016 11:00a [facility] [place] [address] R94.02 Services Of [facility] R42 Office Visit 10/17/2016 9:00a [facility] Lui Samson, 29196 Z00.00 Medicine - [address] M.Shahnaz E78.2 R31.9 E87.6 Office Visit 10/13/2016 2:00p [facility] Alfredo Trevizo, 72571 R94.02 Medicine - [address] Karol,FACP H81.399 E87.6 Office Visit 10/09/2016 1:20p [facility] Lui Samson M.D. 98421 G45.9 Medicine - [address] I10 K21.9 Office Visit 09/05/2016 8:20a [facility] Lui Samson, 41905 M77.11 Medicine - [address] Karol M25.512 K21.9 J45.909 Office Visit 07/05/2016 9:20a [facility] [place] [address] M77.9 Office Visit 07/03/2016 9:00a [facility] [place] [address] Z98.84 [facility] K21.9 Office Visit 06/30/2016 2:40p [facility] Alfredo Trevizo, 32852 J45.41 Medicine - [address] Karol,[facility] Office Visit 01/11/2016 7:40a [facility] Lui Samson, 64674 K21.9 Medicine - [address] Deanne.Shahnaz R31.9 D69.6 R94.5 G43.019 Office Visit 12/10/2015 2:20p [facility] [place] [address] Office Visit 12/03/2015 10:45a [facility] Services Kevin Cottrell, 59735 M54.5 Of [facility] AT Sidneyyessenia Roberson Office Visit 11/09/2015 8:00a [facility] Medicine Josh Samson, [address] Karol J20.9 Office Visit 11/01/2015 3:00p [facility] Medicine - Darin Luna, [facility] TECH [address] R05 Office Visit 09/28/2015 8:00a [facility] Lui Samson, 82389 M51.16 Medicine - [address] M.D. S40.021A R53.83 Z23 Office Visit 08/31/2015 7:40a [facility] Limadeejay Samson, 57526 M51.16 Medicine - [address] M.D. Office Visit 08/17/2015 2:20p [facility] Lima Mali, 02623 M51.16 Medicine - [address] M.D. M25.552 Office Visit 06/04/2015 1:20p [facility] Medicine - Alcides Brody M.D. [address] M54.2 M54.5 Office Visit 04/08/2015 9:20a [facility] Medicine Alcides Brody [address] M.D. Office Visit 03/02/2015 9:40a [facility] Alcides Brody [address] M.D. Office Visit 12/25/2014 4:00p [facility] Medicine Alcides Brody [address] M.D. Office Visit 11/09/2014 10:30a Neurosurgery Services Kevin Cottrell 27127 724.2 [facility] Karol Office Visit 09/08/2014 3:40p [facility] Medicine Josh Brody [address] M.DDoug 535.40 787.20 535.50 Office Visit 08/26/2014 10:00a [facility] Services Kevin Cottrell M.D. 79207 724.2 Of [facility] Office Visit 08/25/2014 3:20p [facility] Josh Brody M.D. [address] 787.91 724.2 724.8 Office Visit 08/20/2014 11:20a [facility] Medicine Alcides Brody M.D. 73571 009.3 - [address] 276.51 787.91 Office Visit 07/29/2014 10:30a [facility]surgery Services Kevin Cottrell 59374 724.2 Of [facility] M.D. Office Visit 06/24/2014 3:30p [facility]surgery Services Kevin Cottrell, 82323 724.2 Of [facility] M.D. Office Visit 06/09/2014 2:40p [facility] Medicine - Alcides Brody, 10673 493.00 Ayla Roberson 784.0 724.5 722.52 Office Visit 04/24/2014 3:00p [facility] Medicine Alcides Brody M.D. 56659 724.5 - [place] 722.91 722.52 Office Visit 03/31/2014 10:20a [facility] Medicine Maurilio WrightDoug Georgeie, 10503 719.42 - Ayla Roberson V04.81 Office Visit 03/03/2014 4:00p [facility] [place] [address] 465.9 - [place] Office Visit 01/27/2014 11:00a [facility] [place] [address] 723.1 - [place] Office Visit 01/06/2014 11:40a [facility] Medicine Johana Ferreira, N.P. 63622 530.81 - [place] Office Visit 10/31/2013 2:00p [facility] Medicine Tarsha Underwood M.D. 39018 V76.2 - [place] V76.10 V70.0 296.31 535.00 V45.86 Office Visit 09/30/2013 10:20a [facility] Medicine Johana Ferreira, N.P. 67393 528.9 - [place] Office Visit 09/12/2013 1:40p [facility] Medicine Tarsha Underwood M.D. 89086 599.70 - [place] 724.5 Office Visit 09/02/2013 11:20a [facility] Medicine Johana Ferreira, N.P. 93229 465.9 - [place] 535.00 724.5 Office Visit 06/27/2013 2:40p [facility] Medicine - Tarsha Underwood M.D. 92294 722.93 [place] 724.5 Office Visit 05/26/2013 3:00p [facility] Medicine - Tarsha Underwood M.D. 56471 722.93 [place] 724.5 Office Visit 03/21/2013 11:40a [facility] Medicine - Trasha Underwood M.D. 46569 724.5 [place] 599.70 719.45 Office Visit 02/03/2013 9:00a [facility] Medicine - Tarsha Underwood M.D. 43377 296.31 [place] 724.5 Office Visit 12/18/2012 11:20a [facility] Medicine Tarsha Underwood M.D. 12585 724.5 - [place] Office Visit 12/10/2012 3:40p [facility] Medicine Johana Ferreira N.PDoug 72702 724.5 - [place] Office Visit 08/30/2012 1:40p [facility] Medicine Tarsha Underwood M.D. 03914 530.12 - [place] 724.5 296.31 626.8 V70.0 Office Visit 08/05/2012 10:40a [facility] Medicine Tarsha Underwood M.D. 08715 724.5 [place] 296.31 530.12 Office Visit 07/01/2012 2:20p [facility] Medicine - Tarsha Underwood M.D. 50290 724.5 [place] 722.93 Office Visit 05/31/2012 2:20p [facility] Medicine - Tarsha Underwood M.D. 54495 724.5 [place] Office Visit 04/24/2012 10:40a [facility] Medicine - Tarsha Underwood M.D. 78538 722.93 [place] 709.9 Office Visit 04/03/2012 9:20a [facility] Medicine - Tarsha Underwood M.D. 01497 722.93 [place] Office Visit 03/27/2012 12:40p [facility] Medicine - Tarsha Underwood M.D. 53105 724.5 [place] 722.93 Office Visit 03/15/2012 10:40a [facility] Medicine Tarsha Underwood M.D. 48358 722.93 [place] 724.5 Office Visit 01/31/2012 11:20a [facility] Medicine Tarsha Underwood M.D. 65163 722.93 [place] 493.90 V45.86 296.31 281.9 Office Visit 01/08/2012 9:40a [facility] Medicine - Tarsha Underwood M.D. 01769 782.3 [place] 724.5 493.90 Office Visit 11/17/2011 4:00p [facility] Medicine - Tarsha Underwood M.D. 75590 722.93 [place] 724.5 995.3 Office Visit 11/03/2011 12:40p [facility] Medicine - Tarsha Underwood M.D. 62991 722.93 [place] Office Visit 10/13/2011 2:00p [facility] Medicine - Tarsha Underwood M.D. 53737 722.93 [place] 724.5 V45.86 Office Visit 09/13/2011 10:40a [facility] Medicine - Tarsha Underwood M.D. 73833 722.93 [place] V45.86 Office Visit 07/28/2011 10:40a [facility] Medicine - Tarsha Underwood M.D. 65365 722.93 [place] 783.1 296.31 789.02 Office Visit 07/11/2011 4:20p [facility] Medicine Johana Ferreira N.PDoug 15462 724.5 - [place] Office Visit 07/05/2011 1:40p [facility] Medicine Tarsha Underwood M.D. 84525 783.1 - [place] Office Visit 06/23/2011 8:40a [facility] Medicine Tarsha Underwood M.D. 21229 715.11 - [place] Office Visit 06/09/2011 11:00a [facility] Medicine Tarsha Underwood M.D. 51146 296.31 - [place] 719.41 Office Visit 05/10/2011 9:20a DO Not Use [employer] Tarsha Underwood M.D. 81268 296.31 Office Visit 04/26/2011 9:40a DO Not Use [employer] Tarsha Underwood M.D. 09159 296.31 Office Visit 04/12/2011 9:40a DO Not Use [employer] Tarsha Underwood M.D. 67131 281.9 V45.86 733.6 790.6 V02.61 Office Visit 03/29/2011 1:40p DO Not Use [facility] Tarsha Underwood M.D. 27502 281.9 807.00 296.31 Plan of Care Future Appointment(s):12/31/2017 10:00 am - Lui Samson M.D. at [facility] Medicine - [address]04/15/2018 9:30 am - Parker Reis M.D. at [facility]11/20/2017 - Quentin Sanders, MDM54.2 WhuzffbmsttP83.012D Strain of musc/tend the rotator cuff of left shoulder, subsNew Xrays:MRI Shoulder Left W/OFollow up:Follow up: after MRIM19.212 Secondary osteoarthritis, left shoulder
--- OUTSIDE RECORDS SUMMARY | 2017-12-05 19:06 | XMS REPORT ---
:1960 External Reference #:[id number] Author Organization [facility] Address [address] [place] [address] [place] [address] Phone [phone] Care Team Providers Name Role Phone Lui Samson MD Primary Care Physician Unavailable Payers Type Date Identification Numbers Payment Provider Subscriber Commercial Policy Number: [id number] Agustín Coates Group Number: [id number] [address] PayID: [id number] [place] [address] Commercial Effective: Policy Number: Dennis/[employer] Keena Coates 2012 [id number] Medicaid Expires: 2012 PayID: [id number] [address] [address] [place] [address] Commercial Expires: 2012 Policy Number: [id number] Agustín Coates Group Name: CHAS# [id number] [address] PayID: [id number] [place] [address] Problems Date Description Provider Status Onset: 04/12/2011 [...] walks on occ General 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 11/09 Dulera 07/17 Hx Aerosol 200-5mcg/ 8.800 2 puff J45.909 Act gm twice a [facility], - day M.D. 11/09 Montelukast 07/17 Hx Tablets 10mg 30tab once daily J45.909 Lui Sodium s [place] - M.DDoug 08/01 Levofloxacin 03/27 Hx Tablets 500mg 10tab once daily J06.9 Josh GrandeDDoug 04/10 Rizatriptan 02/13 Hx Tablets 5mg 9tabs 1 at onset G43.009 Morenita Benzoate /2016 Dispers of MD Brad - migraine. 04/10 in 2 hours if needed. do not use more than 2x/week Zolpidem 02/05 Hx Tablets 5mg 30tab 1 tab G47.00 Lui Tartrate s daily at [facility], - bedtime M.D. 07/17 Zolpidem 01/30 [...] 1 hour MD Brad - before 02/12 Potassium 10/17 Hx Tablets 75mg 30tab 1 by mouth s every day Josh Hollingsworth M.D.,[facility] 10/19 Klor-Con 10 10/13 Hx Tablets ER 10Meq 30tab 1 by mouth Alfredo s every day Josh Hollingsworth M.D.,[facility] 02/12 Diclofenac 09/05 Hx Gel 1% 100gm apply 2 M77.11 Lui Sodium times [place], - daily M.D. 10/19 Meloxicam 09/05 Hx Tablets 15mg 30tab once daily M77.11 Lui s with food [place], - M.D. 10/19 [...] Tablets DR 20mg 60tab 1 tab K21.9 [place] Sodium s twice a P[place]ara, - day M.D. 02/12 Rizatriptan 01/10 Hx Tablets 10mg 12tab use at G43.019 [place] Benzoate s onset of [place], - headache M.D. 10/13 after 2 h as needed Metoprolol 01/10 Hx Tablets 25mg 60tab 1 by mouth G43.019 [place] Tartrate s twice a [place], - day [...] Hx Tablets 10mg 90tab one by M54.89 [place] HCL /2014 s mouth Pachikara, - three M.D. 10/19 times day as needed spasm Asmanex 06/09 Hx Aerosol 220mcg/In 1unit 1 puff po J45.20 Darin [place] 120 /2014 h s bid MICHAELLE Luna Metered Doses - 11/10 Lasix 05/12 Hx Tablets 20mg 5tabs 1 tablet po daily Brody, - in am M.D. 08/20 Cyclobenzaprine 04/24 Hx Tablets 10mg 60tab one by 722.93 Alcides s mouth Broyd, - three M.D. 08/26 times day as needed spasm Ibuprofen 03/31 Hx Tablets 800mg 60tab by mouth 719.42 s three Brody, - times a M.D. 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 - 09/08 Naproxen 09/12 Hx Tablets 375mg 60tab take 1 719.42 Tarsha s tablet Kj, - twice M.D. 03/31 daily for pain control Ranitidine HCL 09/02 Hx Capsules 150mg 60cap one 535.00 Johana s capsule Varn, N.P. - every 12 Iron 06/27 Hx Tablets 325(65Fe) 90tab 1 po qd mg s Kj, - M.D. 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 06/27 Percocet 12/10 Hx Tablets 5-325mg 30tab 1 po qhs 724.5 s prn pain Kj, - M.D. 06/27 Carafate 08/30 Hx Suspension 1GM/10ML 420ml take 2 530.12 teaspoonfu Kj, - ls by M.DDoug 09/16 mouth times a day before meals and at bedtime Calcium 08/05 Hx Chewtabs 260mg 30uni take 1-2 530.12 Carbonate ts tablets Kj, - every 4-6 M.D. 08/30 hours needed for heartburn Carafate 08/05 Hx Suspension 1GM/10ML 420ml take 2 530.12 teaspoonfu Kj - ls by Karol 08/30 mouth times [...] Tablets 5mg 60tab Take 1-2 722.93 Tarsha s tablet Kj, - three M.D. 02/03 times daily for back pain Tramadol HCL 10/12 Hx Tablets 50mg 60tab take 1-2 722.93 s tablets by Kj, - mouth M.D. [...] 1 po qd 296.31 Tarsha Hydrobromide s Kj - M.DDoug 09/02 Citalopram 05/10 Hx Tablets 10mg [...] po qd V45.86 s Josh [place] M.DDoug 09/12 Multivitamins 04/12 Hx Tablets 90tab 1 po qd V45.86 Tarsha s Josh [place] M.DDoug 05/10 Calcium Citrate 04/12 Hx Tablets 950mg 180ta Take 2 V45.86 bs tablets Kj, - twice M.D. 09/12 Iron Supplement 03/29 Hx Tablets 375mg po qd Tarsha Josh [place] M.DDoug 04/12 Iron 03/29 Hx [...] Potency /0000 - 08/05 Vitamin B-12 TR 00 Hx Tablets ER 1000mcg 1 po qd Unknown /0000 - 08/05 Oxycodone/Acetam 00/00 Hx Tablets 5-325mg 60tab 2 tabs po 722.93 Unknown inophen /0000 s q 4 hrs - prn pain 03/15 Diazepam 00/00 Hx Tabs 5mg 1 po qd Unknown [...] /0000 every day - 11/09 Ranitidine HCL Hx Tablets 75mg 1 daily in Unknown /0000 the - morning 03/27 Beet Root 00 Hx one tab Unknown /0000 daily - 11/09 Oxycodone HCL 0000 Hx Tablets 5mg 1-2 tabs Unknown /0000 by mouth - every 4-6 11/09 hours needed Imipramine HCL 0000 Hx Tablets 25mg 1 @hs for Unknown /0000 a week - 11/19 Immunizations CPT Code Status Date Vaccine Lot # [id number] Given 09/28/2015 Pneumonia Vaccine [id number] Given 03/31/2014 Flu Vaccine Split Virus Preservative Free For [id number] Indiv 3Yr Older Vital Signs Date Vital Result Comment 11/19/2017 Height 65 inches 5'5" Weight 218.00 [...] Color Straw Urine Appearance Clear Urine Specific Gary 1.010 1.010-1.030 Urine pH 7.0 5-9 Urine [...] Color Colorless Urine Appearance Clear Urine Specific Gary 1.004 Low 1.010-1.030 Urine pH 6.0 5-9 [...] Color Straw Urine Appearance Clear Urine Specific Gary 1.012 1.010-1.030 Urine pH 6.0 5-9 Urine [...] 11.27 ng/mL >3.99 Laboratory test 04/14/2015 Cytology Non-Sewer Contractor SEE RESULT BELOW 42 finding Laboratory test [...] Color Colorless Urine Appearance Clear Urine Specific Gary 1.017 1.010-1.030 Urine pH 6.0 5-9 Urine [...] Color Straw Urine Appearance Clear Urine Specific Gary 1.011 1.010-1.030 Urine pH 7.0 5-9 Urine [...] 35.1 seconds 26.0- 36.3 63 Thrombo Time Laboratory test finding 08/14/2014 TSH (Thyroid 2.37 IU/mL 0.34-5.60 Stimulating Horm) Comp Metabolic Panel 08/14/2014 Sodium 136 mmol/L [...] Egfr 105.6 >60 64 Laboratory test finding 06/24/2014 Blood Urea Nitrogen 15 mg/dL 6-24 Creatinine 06/24/2014 Creatinine 0.79 mg/dL 0.51-0.95 Egfr Non- 76.1 >60 Egfr 97.9 >60 65 Comp Metabolic Panel 02/06/2014 Sodium 138 mmol/L [...] 180-914 75 Ua Routine 09/12/2013 Ua Specific Gary 1.020 Ua PH 5 Ua Color yellow Ua Appera clear Ua WBC trace Ua Protein trace Ua Glucose neg Ua Ketones neg Ua Bilirubin neg Ua Urobilinogen neg Ua Nitrite neg Ua Occult Blood small + Urine Culture And 09/06/2013 Urine Culture (SEE NOTE) 76 Sensitivities Urine Microscopic 09/06/2013 Urine WBC 1+ (<10 /hpf) None Seen Urine RBC 1+ (<3 /hpf) None Seen Urine Mucus Present /lpf Absent Urine Epithelial Cells 1+ Renal /hpf None Seen Urine Epithelial Cells 1+ Squamous /hpf None Seen Bacteria Urine None Seen None Seen Urinalysis 09/06/2013 Urine Color Yellow Urine Appearance Clear Urine Specific Gary 1.021 1.010-1.030 Urine Esterase 1+ Negative Urine Nitrate Negative Negative Urine Urobilinogen Negative E.U./dL Negative Urine Protein Negative mg/dL Negative Urine pH 5.5 5-9 Urine Blood 1+ Negative Urine Ketones Negative mg/dL Negative Urine Bilirubin Negative Negative Urine Glucose Negative mg/dL Negative Manual Differential 09/06/2013 Neutrophil % 43 % 38-83 Band % 1 % 0-8 Lymphocytes % 42 % 25-47 Monocytes % 5 % 0-13 Eosinophils % 5 % 0-6 Basophil % 2 % 0-2 Reactive Lymph % 2 % 0-6 RBC Morphology Normal Normal Comp Metabolic Panel 09/06/2013 Sodium 138 mmol/L [...] Egfr Non- 79.9 >60 Egfr 102.8 >60 77 CBC Auto Diff 09/06/2013 White Blood Count [...] 10^3/uL 0-0.2 Abs Nucleated RBC 0 10^3/uL Iron & Iron Binding Capacity 07/01/2013 Iron [...] Color Yellow Urine Appearance Clear Urine Specific Gary 1.024 1.010-1.030 Urine Esterase 2+ Negative Urine [...] None Seen Bacteria Urine 1+ None Seen Lipid Profile (Trig/Chol/HDL) 09/18/2012 Triglycerides 109 mg/dL 40-200 Cholesterol 234 mg/dL High Less than 200 HDL Cholesterol 52 mg/dL 40-60 91 Cholesterol/HDL Ratio 4.5 Average High 1-4.44 LDL Cholesterol 160.2 mg/dL High Less Than 100 92 Laboratory test finding 09/18/2012 Glucose 84 mg/dL 70-100 93 CBC Auto Diff 08/30/2012 White Blood Count [...] Horm) Follicle Stimulating Hormone 23.84 miu/mL 94 Ua Routine 01/31/2012 Ua Specific Gary 1.015 Ua PH 5 Ua Color yellow [...] 0.34-5.60 Thyroxine Free 0.56 ng/dL Low 0.61-1.24 Comp Metabolic Panel 04/18/2011 Sodium 141 mmol/L 135-145 Potassium 4.4 mmol/L 3.5-5.0 Chloride 103 mmol/L 101-111 Co2 (Carbon Dioxide) 31.0 mmol/L 22-32 Anion Gap 7.0 mmol/L 2-11 101 Glucose 93 mg/dL 70-100 BUN 12 mg/dL 6-24 Creatinine 0.8 mg/dL 0.50-1.40 One Over Creatinine 1.25 BUN/Creatinine Ratio 15.0 8-20 Calcium 9.4 mg/dL 8.1-9.9 Total Protein 6.9 GM/DL 6.2-8.1 Albumin 4.0 GM/DL 3.6-5.4 Globulin 2.9 GM/DL 2-4 Albumin/Globulin Ratio 1.4 1-3 Bilirubin Total 0.7 mg/dL 0.4-1.5 102 Alkaline Phosphatase 62 U/L 30-110 Alt (SGPT) 22 U/L 14-54 Ast (Sgot) 21 U/L 12-42 eGFR Non- 75.9 > 60 eGFR 97.6 > 60 103 CBC Auto Diff 04/18/2011 White Blood Count [...] % Iron Saturation 13 % Low 15-55 Lipid Profile (Trig/Chol/HDL) 04/18/2011 Triglyceride 122 mg/dL 40-200 Cholesterol 240 mg/dL High Less Than 200 104 High Density Lipoprotein 65 mg/dL High 40-60 105 Cholesterol/HDL Ratio 3.69 AVERAGE 1-4.44 Low Density Lipoprotein 151 mg/dL High Less Than 100 106 Laboratory test 04/18/2011 CPK (Creatine Kinase) 108 U/L 0-170 finding Laboratory test 04/18/2011 Ferritin < 10 NG/ML Low 11.0-307 finding Laboratory test 04/18/2011 Hepatitis C Antibody Nonreactive Nonreactive finding Hepatitis B Surface Ag Nonreactive Nonreactive Hepatitis B Core AB, Total Positive Negative 107 Hepatitis Be Antibodies Positive Negative 108 Hepatitis B Surface AB 04/18/2011 Hepatitis B Surface AB Reactive Nonreactive Hbsab Index > 100.00 109 Vitamin D, 25 Hydroxy 03/29/2011 25-Hydroxy Vitamin D2 <4.0 ng/mL () 25-Hydroxy Vitamin D3 25 ng/mL () 25-Hydroxy Vitamin D Total 25 ng/mL () 110 CBC Auto Diff 03/29/2011 White Blood Count [...] Ferritin < 10 NG/ML Low 11.0-307 1 Head Men'S Golf Coach: [id number] [facility] Severe Sepsis and Septic Shock Management [...] [address]: Maco Nettles MD Acct: [id number] Unit: [id number] AGE: 57 Location: ED Re08/09/17 SEX: F Status: DEP ER SPEC: [id number] HASEEB: 08/09/[address] [facility] [address]: Maco Nettles MD REQ: [id number] RECD: 08/09/17 STATUS: CELIA ERNANDEZ DR: Lui Samson MD _ SOURCE: URINE SPDESC: ORDERED: Urine Culture Procedure Result Reported Site Urine Culture Final 08/11/17- 0854 ML No Growth (<1,000 CFU/mL) * ML - Main Lab . END OF REPORT DEPARTMENT OF PATHOLOGY, [address] [place] [address] Wayne Duff M.D. Director [facility] # [id number] Head Men'S Golf Coach: [id number] 11 Because ethnic data is not always [...] 130-159 High: 160-189 Very High: >[address] [facility] Severe Sepsis and Septic Shock Management [...] 18 99th percentile=0.04 ng/mL Troponin results at [facility] and [facility] are not interchangeable. 19 Desirable <150 Borderline high 150-199 High 200-499 Very High >500 20 Desirable <200 Borderline high 200-239 High >239 21 Low <40 Desirable: 40-60 High: >60 22 Desirable: <100 mg/dL Near Optimal: 100-129 mg/dL Borderline High: 130-159 mg/dL High: 160-189 mg/dL Very High: >189 mg/dL 23 [id number] 24 Because ethnic data is not always [...] 5 Kidney failure <15 (or dialysis) 25 [id number] 26 [id number] 27 Serologic response to B. burgdorferi infection is not detected, but cannot rule out early infection during which low or undetectable antibody levels to B. burgdorferi may be present. If clinically indicated, a new serum specimen should be submitted in 7-14 days. Lipemic Test Performed by: [place] [address] Gig Tender: Quan Fishman II, M.D., Ph.D. 28 No laboratory [...] not reviewed by physician. Test Performed by: [place] [address] Gig Tender: Quan Fishman II, M.D., Ph.D. 29 Test Performed by: [place] [address] Gig Tender: Quan Fishman II, M.D., Ph.D. 30 Result in log IU/mL is Undetected The quantification range of this assay is 20 IU/mL to 170,000,000 IU/mL (1.30 log IU/mL to 8.23 log IU/mL). Testing was performed by the CAROL AmpliPrep/CAROL TaqMan HBV test, version 2.0 ([employer] Test Performed by: [place] [address] Gig Tender: Quan Fishman II, M.D., Ph.D. 31 Test Performed by: [facility] [place] [address] Gig Tender: Quan Fishman II, M.D., Ph.D. 32 If clinically indicated, testing for Hepatitis B Core IgM antibody is necessary to differentiate between acute and past HBV infection. Test Performed by: [facility] - [address] [address] Gig Tender: Quan Fishman II, M.D., Ph.D. 33 [id number] 34 This assay does not differentiate between reactivity due to a vaccine-induced immune response or an immune response induced by infection with HBV. 35 [id number] 36 SEE RESULT BELOW Name: KEENA COATES : [address]: Kevin Boyd MD Acct: [id number] Unit: [id number] AGE: 55 Location: [facility] Re01/01/16 SEX: F Status: DEP ER SPEC: [id number] HASEEB: 01/01/16-[address] [facility] [address]: Sara Palacio NP REQ: [id number] RECD: 01/02/16-552 STATUS: CELIA ERNANDEZ DR: [facility] Lui Samson MD _ SOURCE: URINE SPDESC: ORDERED: Urine Culture COMMENTS: [id number] Procedure Result Reported Site Urine Culture Final 01/03/16- 1457 ML No Growth (<1,000 CFU/mL) * ML - MAIN LAB ([facility]) . END OF REPORT * ML=Testing performed at Main Lab DEPARTMENT OF PATHOLOGY, [address] [place] [address] Wayne Duff M.D. Director [facility] # [id number] [address] [facility] Severe Sepsis and Septic Shock Management [...] [address]: Dwight Brown MD Acct: [id number] Unit: [id number] AGE: 55 Location: LAB Re04/14/15 SEX: F Status: REG REF SPEC: [id number] HASEEB: 04/14/[address] [facility] [address]: Dwight Brown MD REQ: [id number] RECD: 04/14/15 STATUS: SULTANA ERNANDEZ DR: Alcides Brody MD _ ORDERED: THIN PREP NON G FINAL DIAGNOSIS Urine, voided: Negative for malignant cells. URINE VOID CLINICAL HISTORY Gross hematuria GROSS DESCRIPTION 5 mls of cloudy peach colored urine. Signed (signature on file) Wayne Duff MD 1347 END OF REPORT * ML=Testing performed at Main Lab DEPARTMENT OF PATHOLOGY, [address] [place] [address] Wayne Duff M.D. Director [facility] # [id number] 43 Because ethnic data is not always [...] [address]: Eusebio Matute MD Acct: [id number] Unit: [id number] AGE: 54 Location: ED Re12/23/14 SEX: F Status: DEP ER SPEC: [id number] HASEEB: 12/24/[address]: Gene Godoy DO REQ: [id number] RECD: 12/24/14 STATUS: CELIA ERNANDEZ DR: Alcides Brody MD _ SOURCE: URINE SPDESC: ORDERED: Urine Culture Procedure Result Verified Site Urine Culture Final 12/26/14- 1034 ML Organism 1 NORMAL CHAVEZ Selby Count 25-50,000 (Moderate) CFU/ML * ML - MAIN LAB ([facility]) . END OF REPORT * ML=Testing performed at Main Lab DEPARTMENT OF PATHOLOGY, [address] [place] [address] Wayne Duff M.D. Director [facility] # [id number] 46 SEE RESULT BELOW Name: KEENA COATES : [address]: Eusebio Garcia MD Acct: [id number] Unit: [id number] AGE: 54 Location: [facility] Re12/23/14 SEX: F Status: DEP ER SPEC: [id number] HASEEB: 12/23/[address] [facility] [address]: Eusebio Garcia MD REQ: [id number] RECD: 12/24/14 STATUS: CELIA ERNANDEZ DR: [facility] Alcides Brody MD _ SOURCE: THROAT SPDESC: ORDERED: Throat Beta Str Procedure Result Verified Site Throat Beta Strep Culture Final 12/26/14- 0850 ML Negative For Group A Beta Streptococcus * ML - MAIN LAB ([facility]) . END OF REPORT * ML=Testing performed at Main Lab DEPARTMENT OF PATHOLOGY, [address] [place] [address] Wayne Duff M.D. Director [facility] # [id number] RUN DATE: 09/16/14 [facility] LAB LIVE PAGE 1 RUN TIME: [address] [place] [address] Specimen Inquiry Name: KEENA COATES : [address]: Quan Guerrero MD Acct: [id number] Unit: [id number] AGE: 54 Location: ED Re09/14/14 SEX: F Status: DEP ER SPEC: [id number] HASEEB: 09/14/14-[address] [facility] [address]: Quan Guerrero MD REQ: [id number] RECD: 09/14/14 STATUS: COMP AWAIS DR: Alcides Brody MD _ SOURCE: URINE SPDESC: ORDERED: Urine Culture Procedure Result Verified Site Urine Culture Final 09/16/14- 0826 ML Organism 1 NORMAL CHAVEZ Selby Count 10-25,000 (Moderate) CFU/ML * ML - MAIN LAB ([facility]) . END OF REPORT * ML=Testing performed at Main Lab DEPARTMENT OF PATHOLOGY, [address] [place] [address] Wayne Duff M.D. Director [facility] # [id number] Please note: The following may produce [...] of <18.00 are negative. Test Performed by: [place] [address] Gig Tender: Quan Fishman II, M.D., Ph.D. 56 Results with Index Values of <8.95 are negative. Test Performed by: [place] [address] Gig Tender: Quan Fishman II, M.D., Ph.D. 57 Results with Index Values of <36.00 are negative. Test Performed by: [place] [address] Gig Tender: Quan Fishman II, M.D., Ph.D. 58 RUN DATE: 08/21/14 [facility] LAB LIVE PAGE 1 RUN TIME: [address] [place] [address] Specimen Inquiry Name: KEENA COATES : [address]: Alcides Brody MD Acct: [id number] Unit: [id number] AGE: 54 Location: [facility] Re08/21/14 SEX: F Status: REG REF SPEC: [id number] HASEEB: 08/21/14-[address] [facility] [address]: Alcides Brody MD REQ: [id number] RECD: 08/21/14 STATUS: RES _ SOURCE: STOOL SPDESC: ORDERED: E.coli O157:H7, Stool Culture, C. diff Amp DNA, O P (Full) QUERIES: Provider Requisition # [id number] Procedure Result Verified Site E.coli O157:H7 Culture [...] performed at Main Lab DEPARTMENT OF PATHOLOGY, [facility] [employer] [address] [place], [place] [address] Wayne Duff M.D. Director [facility] # [id number] RUN DATE: 08/21/14 [facility] LAB LIVE PAGE 2 RUN TIME: 9400 [facility] [employer] [place], [place] [address] Specimen Inquiry Patient: KEENA COATES [id number] (Continued) Specimen: [id number] Collected: 08/21/14-1029 Received: 08/21/14-1056 (Continued) Procedure Result [...] Full PENDING * ML - MAIN LAB ([facility]) . END OF REPORT * ML=Testing performed at Main Lab DEPARTMENT OF PATHOLOGY, [address] [place] [address] Wayne Duff M.D. Director [facility] # [id number] 59 REFERENCE RANGE: NOT DETECTED The Entamoeba histolytica antigen EIA test detects only the antigen of the pathogenic E. histolytica; the non-pathogenic E. dispar is not detected. Test Performed by: [facility] [address] [facility] [facility] [address] 60 RUN DATE: 08/23/14 [facility] LAB LIVE PAGE 1 RUN TIME: [address] [place] [address] Specimen Inquiry Name: KEENA COATES : [address]: Alcides Brody MD Acct: [id number] Unit: [id number] AGE: 54 Location: [facility] Re08/21/14 SEX: F Status: REG REF SPEC: [id number] HASEEB: 08/21/14-[address] [facility] [address]: Alcides Brody MD REQ: [id number] RECD: 08/21/14 STATUS: RES _ SOURCE: STOOL SPDESC: ORDERED: E.coli O157:H7, Stool Culture, C. diff Amp DNA, O P (Full) QUERIES: Provider Requisition # [id number] Procedure Result Verified Site E.coli O157:H7 Culture [...] performed at Main Lab DEPARTMENT OF PATHOLOGY, [facility] [employer] [address] [place] [address] Wayne Duff M.D. Director [facility] # [id number] RUN DATE: 08/23/14 [facility] LAB LIVE PAGE 2 RUN TIME: 1110 [facility] [employer] [place], [place] [address] Specimen Inquiry Patient: KEENA COATES [id number] (Continued) Specimen: [id number] Collected: 08/21/14-0 Received: 08/21/14 (Continued) Procedure Result [...] Full PENDING * ML - MAIN LAB ([facility]) . END OF REPORT * ML=Testing performed at Main Lab DEPARTMENT OF PATHOLOGY, [facility] [employer] [address] [place], [place] [address] Wayne Duff M.D. Director [facility] # [id number] 61 RUN DATE: 08/25/14 [facility] LAB LIVE PAGE 1 RUN TIME: 1608 [facility] [employer] [place], [place] [address] Specimen Inquiry Name: KEENA COATES : [address]: Alcides Brody MD Acct: [id number] Unit: [id number] AGE: 54 Location: [facility] Re08/21/14 SEX: F Status: REG REF SPEC: [id number] HASEEB: 08/21/14-[address] [facility] [address]: Alcides Brody MD REQ: [id number] RECD: 08/21/14 STATUS: COMP _ SOURCE: STOOL SPDESC: ORDERED: E.coli O157:H7, Stool Culture, [place] (Full) QUERIES: Provider Requisition # [id number] Procedure Result Verified Site E.coli O157:H7 Culture [...] performed at Main Lab DEPARTMENT OF PATHOLOGY, [facility] [employer] [address] [place], [place] [address] Wayne Duff M.D. Director [facility] # [id number] RUN DATE: 08/25/14 [facility] LAB LIVE PAGE 2 RUN TIME: [address] [place] [address] Specimen Inquiry Patient: KEENA COATES [id number] (Continued) Specimen: [id number] Collected: 08/21/14-1029 Received: 08/21/14-1056 (Continued) Procedure Result [...] performed at Main Lab DEPARTMENT OF PATHOLOGY, [address] [place] [address] Wayne Duff M.D. Director [facility] # [id number] RUN DATE: 08/25/14 [facility] LAB LIVE PAGE 3 RUN TIME: [address] [place] [address] Specimen Inquiry Patient: LILIAKEENA [id number] (Continued) Specimen: [id number] Collected: 08/21/14-1029 Received: 08/21/14-1056 (Continued) Procedure Result Verified Site Ova Parasite Concen Full Final (continued) 08/25/14- 1608 Final Result No Ova Parasites seen by Ethyl Acetate Concentration No Cysts or Trophs Seen on Trichrome smear * ML - MAIN LAB ([facility]) . END OF REPORT * ML=Testing performed at Main Lab DEPARTMENT OF PATHOLOGY, [facility] [employer] [address] [place], [place] [address] Wayne Duff M.D. Director [facility] # [id number] 62 RUN DATE: 08/24/14 [facility] LAB LIVE PAGE 1 RUN TIME: 0992 [facility] [employer] [place], [place] [address] Specimen Inquiry Name: KEENA COATES : [address]: Alcides Brody MD Acct: [id number] Unit: [id number] AGE: 54 Location: [facility] Re08/21/14 SEX: F Status: REG REF SPEC: [id number] HASEEB: 08/21/14-[address] [facility] [address]: Alcides Brody MD REQ: [id number] RECD: 08/21/14 STATUS: RES _ SOURCE: STOOL SPDESC: ORDERED: E.coli O157:H7, Stool Culture, C. diff Amp DNA, O P (Full) QUERIES: Provider Requisition # [id number] Procedure Result Verified Site E.coli O157:H7 Culture [...] performed at Main Lab DEPARTMENT OF PATHOLOGY, [facility] [employer] [place], [place] [address] Wayne Duff M.D. Director [facility] # [id number] RUN DATE: 08/24/14 [facility] LAB LIVE PAGE 2 RUN TIME: 5802 [facility] [employer] [place], [place] [address] Specimen Inquiry Patient: KEENA COATES [id number] (Continued) Specimen: [id number] Collected: 08/21/14-0 Received: 08/21/14-1056 (Continued) Procedure Result Verified Site Shiga Toxin 1 2 Final (continued) 08/24/14- 1112 Immunochromatographic Assay C. difficile Amplified DNA Final 08/21/14- 1439 ML Organism 1 Neg: No C. difficile detected Assay tests for toxigenic C. difficile with Pathogen Locus (PALO) TEST LIMITATIONS: Assay does not distinguish between [...] performed at Main Lab DEPARTMENT OF PATHOLOGY, [address] [place] [address] Wayne Duff M.D. Director [facility] # [id number] Effective July 17, 2014 at 12:00pm [...] Very High >189 72 RUN DATE: 11/03/13 [facility] LAB LIVE PAGE 1 RUN TIME: [address], [place] [address] Specimen Inquiry Name: KEENA COATES : [address]: Tarsha Underwood MD Acct: [id number] Unit: [id number] AGE: 53 Location: [facility] Re10/31/13 SEX: F Status: REG REF SPEC: [id number] HASEEB: 10/31/[address] [facility] [address]: Tarsha Underwood MD REQ: [id number] RECD: 10/31/13 STATUS: SOUT _ ORDERED: IMAGE ANALYSIS, HPV/Thin Prep FINAL DIAGNOSIS Negative for Intraepithelial lesion or Malignancy COMMENTS: Specimen sent to [facility] in [place], [place] on 11/03/13 by [id number] at 1220. Results will be reported separately. [...] was evaluated with the assistance of the FeZoPrep Test Imaging System. Due to cytologic findings at the pressure sealer and tester microscope, comprehensive manual rescreening by a Bottom Stop Attacher may be required. The Pap Smear is [...] performed at Main Lab DEPARTMENT OF PATHOLOGY, [address] [place] [address] Wayne Duff M.D. Director [facility] # [id number] RESULT: Ectocervical/Endocervical 74 The following Other High Risk HPV types were not detected: 31, 33, 35, 39, 45, 51, 52, 56, 58, 59, 66, and 68 Test Performed by: [facility] - [address] [address] Gig Tender: Jorge Luis Ruiz III, M.D. 75 Normal Range 180 to 914 Indeterminate Range 145 to 180 Deficient Range <145 76 RUN DATE: 09/08/13 [facility] LAB LIVE PAGE 1 RUN TIME: [address] [place] [address] Specimen Inquiry Name: KEENA COATES : [address]: Vasyl Richards MD Acct: [id number] Unit: [id number] AGE: 53 Location: ED Re09/06/13 SEX: F Status: DEP ER SPEC: [id number] HASEEB: 09/06/[address]: Patrizia TSAI REQ: [id number] RECD: 09/06/13 STATUS: COMP AWAIS DR: Vasyl Underwood MD _ SOURCE: URINE SPDESC: ORDERED: Urine Culture Procedure Result Verified Site Urine Culture Final 09/08/13- 0940 ML Organism 1 NORMAL CHAVEZ Selby Count 1-10,000 (Few) CFU/ML END OF REPORT * ML=Testing performed at Main Lab DEPARTMENT OF PATHOLOGY, [address] [place] [address] Wayne Duff M.D. Director [facility] Permit #[id number] 77 Because ethnic data is not always readily [...] 15-29 5 Kidney failure <15 (or dialysis) 78 FASTING 79 Normal Range 180 to 914 Indeterminate Range 145 to 180 Deficient Range <145 80 -- REFERENCE VALUE -- 25-HYDROXY D TOTAL (D2+D3) Optimum levels in the healthy population are 20-50, patients with bone disease may benefit from higher levels within this range. Test Performed by: [facility] - [address] [address] Gig Tender: Jorge Luis Ruiz III, M.D. 81 Desirable <150 Borderline high 150-199 High 200-499 Very High >500 82 Desirable <200 Borderline high 200-239 High >239 83 Low <40 Desirable: 40-60 High: >60 84 Desirable <100 Near Optimal 100-129 Borderline high 130-159 High 160-189 Very High >189 85 FASTING 86 FASTING 87 2+ (>10-30 /hpf) 88 RUN DATE: 03/23/13 [facility] LAB LIVE PAGE 1 RUN TIME: [address] [place] [address] Specimen Inquiry Name: KEENA COATES : [address]: Tez Olmstead RPA- Acct: [id number] Unit: [id number] AGE: 53 Location: LAB Re03/21/13 SEX: F Status: REG REF SPEC: [id number] HASEEB: 03/21/[address] [facility] [address]: Tez COWAN REQ: [id number] RECD: 03/21/13 STATUS: CELIA ERNANDEZ DR: Tarsha Underwood MD _ SOURCE: URINE SPDESC: ORDERED: Urine Culture Procedure Result Verified Site Urine Culture Final 03/23/13856 ML Organism 1 NORMAL CHAVEZ [place] Count 75-100,000 (Many) CFU/ML END OF REPORT * ML=Testing performed at Main Lab DEPARTMENT OF PATHOLOGY, [address] [place] [address] Wayne Duff M.D. Director [facility] Permit #[id number] 89 Dipstick not performed due to tech error 90 2+ (>10-30 /hpf) 91 HDL Interpretation: Undesirable: High Risk: Less than 40 MG/DL Desirable: Low Risk: Greater than 60 MG/DL 92 LDL Interpretation: Low Risk Optimal Level: LDL Less than 100 MG/DL Near or Above Optimal: LDL 100-129 MG/DL Borderline High Risk: LDL 130-159 MG/DL High Risk: LDL 160-189 MG/DL Very High Risk: LDL Greater than 189 MG/DL 93 PT IS FASTING 94 Normally menstruating females - Follicular phase 3 - 9 - Mid-cycle peak 4 - 23 - Luteal phase 1 - 6 Postmenopausal females 16 - 114 95 -- REFERENCE VALUE -- 25-HYDROXY D TOTAL (D2+D3) Optimum levels in the normal population are 25-80 Test Performed by: [facility] [address] [address] Gig Tender: Jorge Luis Ruiz III, M.D. 96 Recommended [...] by an alternate HCG method. . 101 Anion gap measurement may be of limited value in the presence of any alkalosis, especially in a combined acid base disorder. . 102 A metabolite of Naproxen, O-desmethylnaproxen, has been shown to interfere with the Jendrassik-Amish method for measuring total bilirubin. Samples from patients who have taken Naproxen have shown spurious elevation in total bilirubin levels. 103 Because ethnic data is not always readily [...] 15-29 5 Kidney failure <15 (or dialysis) 104 CHOLESTEROL INTERPRETATION: Desirable: Less than 200 [...] Risk: LDL Greater than 189 MG/DL 107 If clinically indicated, testing for Hepatitis B Core IgM antibody is necessary to differentiate between acute and past HBV infection. Test Performed by: [facility] Dpt of Lab Med and Pathology [address] [place] [address] Gig Tender: Jorge Luis Ruiz III, M.D. 108 Test Performed by: [facility] Dpt of Lab Med and Pathology [address] [place] [address] Gig Tender: Jorge Luis Ruiz III, M.D. 109 The World Health Organization (WHO) Hepatitis B Immunoglobulin 1st International Reference Preparation (1976): The accepted criteria for immunity to HBV is anti-HBs activity greater than or equal to 10 mIU/mL. An Index Value of 1.00 is equivalent to 10 mIU/mL. Samples with an Index Value of 1.00 or greater are considered reactive (protective) in accordance with the CDC guidelines. 110 -- REFERENCE VALUE -- 25-HYDROXY D TOTAL (D2+D3) Optimum levels in the normal population are 25-80 Test Performed by: [facility] Dpt of Lab Med and Pathology [address] [place] [address] Gig Tender: Jorge Luis Ruiz III, M.D. Procedures Date CPT Code Description Status Comment 11/07/2017 27711 ECHO Transthorasic Realtime Completed 2D W Doppler & Color Flow Hosp 03/12/2017 Mammogram Completed 12/21/2015 Mammogram Completed 12/15/2014 Mammogram Completed 02/17/2014 Colonoscopy Completed 11/18/2013 Mammogram Completed 01/31/2012 02537 EKG Tracing & Interpretation Completed 12/26/2011 Mammogram Completed 08/24/[address] Encinas, 2 hyperplastic polyps per [facility] Encounters Type Date Location Provider CPT E/M Dx Office Visit 11/07/2017 [facility] maria,elizabeth Lopez M.D. 699[address] R41.0 1:09p Hospitalists R51 R07.9 Office Visit 11/06/2017 1:08p [facility] maria,[place] [address] R41.0 Hospitalists R51 Office Visit 11/01/2017 1:40p [facility] Internal Lui Samson, [address] M51.16 Medicine - [place] Selvin Roberson M54.2 M25.512 Office Visit 10/24/2017 2:40p [facility] Internal Medicine Lui Samson, 44853 M54.2 - Ayla Roberson M25.512 Office Visit 10/17/2017 11:30a [facility] [address] G43.009 R94.02 M54.2 R20.0 Office Visit 08/14/2017 11:00a [facility] Internal Lui Samson, 82038 J45.909 Medicine - [place] Selvin Roberson K21.9 Office Visit 07/17/2017 8:40a [facility] Internal Lui Samson, 23974 J45.909 Medicine - [place] Selvin Roberson G47.00 K21.9 Office Visit 07/02/2017 9:45a [facility] [place], [address] Z98.84 [facility] K21.9 Office Visit 04/10/2017 8:00a [facility] Internal Lui Samson M.D. 76233 J06.9 Medicine - [place] [address] M25.571 Office Visit 03/27/2017 2:40p [facility] Internal Lui Samson, [address]47[address] Z01.818 Medicine - [place] Selvin Roberson N90.3 J06.9 Office Visit 02/13/2017 11:30a [facility] [address] G43.009 R94.02 R42 R13.10 Office Visit 01/30/2017 11:20a [facility] Internal Beba Samson M.D. [address] [address] - [place] [address] K21.9 J45.909 E66.9 G47.00 Office Visit 11/03/2016 11:00a [facility] [place] [address] R94.02 Services Of [facility] R42 Office Visit 10/17/2016 9:00a [facility] Internal Lui Samson, 16656 Z00.00 Medicine - [place] Selvin Roberson E78.2 R31.9 E87.6 Office Visit 10/13/2016 2:00p [facility] Internal Alfredo rTevizo, 71273 R94.02 Medicine - [place] Roberson,FACP H81.399 E87.6 Office Visit 10/09/2016 1:20p [facility] Gayatri Samson M.D. 02082 G45.9 Medicine - [place] [address] I10 K21.9 Office Visit 09/05/2016 8:20a [facility] Internal Lui Samson, 24155 M77.11 Medicine - [place] [address] M.DDoug M25.512 K21.9 J45.909 Office Visit 07/05/2016 9:20a [facility] Internal Medicine - Darin Luna, INSULATION WORKER INTERIOR SURFACE [address] M77.9 Office Visit 07/03/2016 9:00a [facility] [place] [address] Z98.84 [employer] K21.9 Office Visit 06/30/2016 2:40p [facility] Internal Alfredo Trevizo, 02434 J45.41 Medicine - [place] [address] M.DDoug,FACP Office Visit 01/11/2016 7:40a [facility] Internal Lui Samson, 22880 K21.9 Medicine - [place] [address] M.DDoug R31.9 D69.6 R94.5 G43.019 Office Visit 12/10/2015 2:20p [facility] Internal Medicine - Darin Luna, MICHAELLE [address] Office Visit 12/03/2015 10:45a Neurosurgery Services Kevin Cottrell, 48021 M54.5 Of [facility] AT Ronnie Roberson Office Visit 11/09/2015 8:00a [facility] Internal Medicine - Lui Samson, [address] M.Shahnaz J20.9 Office Visit 11/01/2015 3:00p [facility] Internal Medicine - Darin Luna, MICHAELLE [address] R05 Office Visit 09/28/2015 8:00a [facility] Internal Lui Samson, 72675 M51.16 Medicine - [place] [address] M.DDoug S40.021A R53.83 Z23 Office Visit 08/31/2015 7:40a [facility] Internal Lui Samson, 45329 M51.16 Medicine - [place] [address] M.D. Office Visit 08/17/2015 2:20p [facility] Internal Lui Samson, [address]20 M51.16 Medicine - [place] [address] M.DDoug M25.552 Office Visit 06/04/2015 1:20p [facility] Internal Medicine - Alcides Brody M.D. [address] M54.2 M54.5 Office Visit 04/08/2015 9:20a [facility] Internal Medicine Alcides Brody, [address] M.D. Office Visit 03/02/2015 9:40a [facility] Internal [facility] Alcides Brody [address] M.D. Office Visit 12/25/2014 4:00p [facility] Internal [facility] Josh Brdoy [address] M.D. Office Visit 11/09/2014 10:30a [facility] Services Kevin Cottrell 38398 724.2 Of [facility] M.D. Office Visit 09/08/2014 3:40p [facility] Internal [facility] Josh Brody [address] M.DDoug 535.40 787.20 535.50 Office Visit 08/26/2014 10:00a [facility]surgery Services Kevin Ctotrell M.D. 63400 724.2 Of [facility] Office Visit 08/25/2014 3:20p [facility] Internal Beba Brody M.D. [address] 787.91 724.2 724.8 Office Visit 08/20/2014 11:20a [facility] Internal Beba Brody M.D. 59472 009.3 - [place] [address] 276.51 787.91 Office Visit 07/29/2014 10:30a [facility]surgery Services Kevin Cottrell 28083 724.2 Of [facility] M.D. Office Visit 06/24/2014 3:30p Neurosurgery Services Kevin Cottrell 49635 724.2 Of [facility] M.DDogu Office Visit 06/09/2014 2:40p [facility] Internal Medicine Josh Brody 14924 493.00 Ayla Roberson 784.0 724.5 722.52 Office Visit 04/24/2014 3:00p [facility] Internal Beba Brody M.D. 08327 724.5 - Ayla 722.91 722.52 Office Visit 03/31/2014 10:20a [facility] Internal Medicine Maurilio Torrez, 68753 719.42 - Ayla Roberson V04.81 Office Visit 03/03/2014 4:00p [facility] Internal Medicine Eusebio Flores, MICHAELLE [address]15 465.9 - [place] Office Visit 01/27/2014 11:00a [facility] Internal Medicine Eusebio Flores, MICHAELLE 25518 723.1 - [place] Office Visit 01/06/2014 11:40a [facility] Internal Medicine Johana Ferreira N.P. 27169 530.81 - [place] Office Visit 10/31/2013 2:00p [facility] Internal Medicine Tarsha Underwood M.D. 31625 V76.2 - [place] V76.10 V70.0 296.31 535.00 V45.86 Office Visit 09/30/2013 10:20a [facility] Internal Medicine Johana Ferreira N.P. 58452 528.9 - [place] Office Visit 09/12/2013 1:40p [facility] Internal Medicine Tarsha Underwood M.D. 56332 599.70 - [place] 724.5 Office Visit 09/02/2013 11:20a [facility] Internal Medicine Johana Ferreira N.P. 15317 465.9 - [place] 535.00 724.5 Office Visit 06/27/2013 2:40p [facility] Internal Medicine - Tarsha Underwood M.D. 43205 722.93 [place] 724.5 Office Visit 05/26/2013 3:00p [facility] Internal Medicine - Tarsha Underwood M.D. 57260 722.93 [place] 724.5 Office Visit 03/21/2013 11:40a [facility] Internal Medicine - Tarsha Underwood M.D. 35183 724.5 [place] 599.70 719.45 Office Visit 02/03/2013 9:00a [facility] Internal Medicine - Tarsha Underwood M.D. 36875 296.31 [place] 724.5 Office Visit 12/18/2012 11:20a [facility] Internal Medicine Tarsha Underwood M.D. 90343 724.5 - [place] Office Visit 12/10/2012 3:40p [facility] Internal Medicine Johana Ferreira N.P. 11932 724.5 - [place] Office Visit 08/30/2012 1:40p [facility] Internal Medicine Tarsha Underwood M.D. 65499 530.12 - [place] 724.5 296.31 626.8 V70.0 Office Visit 08/05/2012 10:40a [facility] Internal Medicine - Tarsha Underwood M.D. 14301 724.5 [place] 296.31 530.12 Office Visit 07/01/2012 2:20p [facility] Internal Medicine Tarsha Underwood M.D. 37553 724.5 [place] 722.93 Office Visit 05/31/2012 2:20p [facility] Internal Medicine Tarsha Underwood M.D. 17021 724.5 [place] Office Visit 04/24/2012 10:40a [facility] Internal [facility] Tarsha Underwood M.D. 31954 722.93 [place] 709.9 Office Visit 04/03/2012 9:20a [facility] Internal Medicine Tarsha Underwood M.D. 71116 722.93 [place] Office Visit 03/27/2012 12:40p [facility] Internal Medicine Tarsha Underwood M.D. 72058 724.5 [place] 722.93 Office Visit 03/15/2012 10:40a [facility] Internal Medicine Tarsha Underwood M.D. 82900 722.93 [place] 724.5 Office Visit 01/31/2012 11:20a [facility] Internal [facility] Tarsha Underwood M.D. 14280 722.93 [place] 493.90 V45.86 296.31 281.9 Office Visit 01/08/2012 9:40a [facility] Internal Medicine Tarsha Underwood M.D. 47355 782.3 [place] 724.5 493.90 Office Visit 11/17/2011 4:00p [facility] Internal Medicine Tarsha Underwood M.D. 71424 722.93 [place] 724.5 995.3 Office Visit 11/03/2011 12:40p [facility] Internal [facility] Tarsha Underwood M.D. 14253 722.93 [place] Office Visit 10/13/2011 2:00p [facility] Internal Medicine Tarsha Underwood M.D. 78296 722.93 [place] 724.5 V45.86 Office Visit 09/13/2011 10:40a [facility] Internal Medicine - Tarsha Underwood M.D. 07466 722.93 [place] V45.86 Office Visit 07/28/2011 10:40a [facility] Internal Medicine - Tarsha Underwood M.D. 08435 722.93 [place] 783.1 296.31 789.02 Office Visit 07/11/2011 4:20p [facility] Internal Medicine Johana Ferreira, N.P. 37568 724.5 - [place] Office Visit 07/05/2011 1:40p [facility] Internal Medicine Tarsha Underwood M.D. 42134 783.1 - [place] Office Visit 06/23/2011 8:40a [facility] Internal Medicine Tarsha Underwood M.D. 28183 715.11 - [place] Office Visit 06/09/2011 11:00a [facility] Internal Medicine Tarsha Underwood M.D. 54739 296.31 - [place] 719.41 Office Visit 05/10/2011 9:20a DO Not Use [facility] Tarsha Underwood M.D. 12800 296.31 Office Visit 04/26/2011 9:40a DO Not Use [facility] Tarsha Underwood M.D. 27999 296.31 Office Visit 04/12/2011 9:40a DO Not Use [facility] Tarsha Underwood M.D. 00010 281.9 V45.86 733.6 790.6 V02.61 Office Visit 03/29/2011 1:40p DO Not Use [facility] Tarsha Underwood M.D. 42405 281.9 807.00 296.31 Plan of Care Future Appointment(s):12/31/2017 10:00 am - Lui Samson M.D. at [facility] Internal Medicine - [place] 11/20/2017 9:30 am - Quentin Sanders MD at [facility]04/15/2018 9:30 am - Parker Reis M.D. at [place] [facility]/2017 - Kevin Cottrell M.D.M25.512 Pain in left heolabxoT94.16 Radiculopathy, lumbar regionNew Xrays:MRI Lumbar Spine W/ WoFollow up:After diagnostic study
--- OUTSIDE RECORDS SUMMARY | 2017-12-05 19:07 | XMS REPORT ---
:1960 External Reference #:[id number] Author Organization [facility] Address [address] [place] [address] [place] [address] Phone [phone] Care Team Providers Name Role Phone Lui Samson MD Primary Care Physician Unavailable Payers Type Date Identification Numbers Payment Provider Subscriber Commercial Policy Number: [id number] Agustín Coates [employer] Number: [id number] [address] PayID: [id number] [place] [address] Commercial Effective: Policy Number: Dennis/[employer] Keena Coates 2012 [id number] Medicaid Expires: 2012 PayID: [id number] [address] [address] [place] [address] Commercial Expires: 2012 Policy Number: [id number] Agustín Coates Group Name: CHAS# [id number] [address] PayID: [id number] [place] [address] Problems Date Description Provider Status Onset: 04/12/2011 [...] walks on occ General Hx Text Formed [employer], but not employed secondary to back injury [...] Active Tablets 5-325mg 60tab 1 tab M54.2 [place] aminophen /2017 s every 8h [place], as [...] wear daily M79.642 Darin s 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 11/09 Dulera 07/17 Hx Aerosol 200-5mcg/ 8.800 2 puff J45.909 Act gm twice a [facility], - day M.D. 11/09 Montelukast 07/17 [...] tab G47.00 Lui Tartrate s daily at [facility], - bedtime M.D. 07/17 Zolpidem 01/30 [...] by mouth s every day Josh Hollingsworth M.D.,[facility] 10/19 Klor-Con 10 10/13 Hx Tablets ER 10Meq 30tab 1 by mouth Alfredo s every day Josh Hollingsworth M.D.,[facility] 02/12 Diclofenac 09/05 Hx Gel 1% [...] Tablets DR 20mg 60tab 1 tab K21.9 [place] Sodium s twice a [place], - day M.D. 02/12 Rizatriptan 01/10 Hx Tablets 10mg 12tab use at G43.019 [place] Benzoate s onset of [place], - headache M.D. 10/13 after 2 h as needed Metoprolol 01/10 Hx Tablets 25mg 60tab 1 by mouth G43.019 [place] Tartrate s twice a [place], - day [...] Hx Tablets 10mg 90tab one by M54.89 [place] HCL /2014 s mouth [place], - three M.D. 10/19 times day as needed spasm Asmanex 06/09 Hx Aerosol 220mcg/In 1unit 1 puff po J45.20 Darin [place] 120 /2014 h s bid MICHAELLE Luna [...] 465.8 Eusebio 12HR s mouth q12 Sandra CORROSION PREVENTION METAL SPRAYER - hours 06/09 Omeprazole 01/06 Hx Capsules [...] puffs by Darin e) s mouth Jeremy CORROSION PREVENTION METAL SPRAYER - mcg/Act every 4 10/19 hours needed [...] 30cap Take 1-2 724.5 s tablets at [place], - night M.D. 06/27 Percocet 12/10 Hx [...] 90tab 1 po qd V45.86 Tarsha s oJsh Underwood M.DDoug 05/10 Calcium Citrate 04/12 Hx [...] CPT Code Status Date Vaccine Lot # [id number] Given 09/28/2015 Pneumonia Vaccine [id number] Given 03/31/2014 Flu Vaccine Split Virus Preservative Free For [id number] Indiv 3Yr Older Vital Signs Date Vital [...] Color Straw Urine Appearance Clear Urine Specific [place] 1.010 1.010-1.030 Urine pH 7.0 5-9 Urine [...] Blood Type A Positive Antibody Screen NEGATIVE Comp Metabolic Panel 08/09/2017 Sodium 136 mmol/L [...] Non- 74.2 >60 Egfr 95.4 >60 8 Laboratory test finding 08/09/2017 Lipase 23 U/L 11.0-82.0 CBC Auto Diff 08/09/2017 White Blood Count [...] Color Colorless Urine Appearance Clear Urine Specific [place] 1.004 Low 1.010-1.030 Urine pH 6.0 5-9 [...] Color Straw Urine Appearance Clear Urine Specific [place] 1.012 1.010-1.030 Urine pH 6.0 5-9 Urine [...] 11.27 ng/mL >3.99 Laboratory test 04/14/2015 Cytology Non-Director Hematology SEE RESULT BELOW 42 finding Laboratory test [...] Color Colorless Urine Appearance Clear Urine Specific [place] 1.017 1.010-1.030 Urine pH 6.0 5-9 Urine [...] Color Straw Urine Appearance Clear Urine Specific [place] 1.011 1.010-1.030 Urine pH 7.0 5-9 Urine [...] 180-914 75 Ua Routine 09/12/2013 Ua Specific [place] 1.020 Ua PH 5 Ua Color yellow [...] Color Yellow Urine Appearance Clear Urine Specific [place] 1.021 1.010-1.030 Urine Esterase 1+ Negative Urine [...] Color Yellow Urine Appearance Clear Urine Specific [place] 1.024 1.010-1.030 Urine Esterase 2+ Negative Urine [...] % 0 Ua Routine 01/31/2012 Ua Specific [place] 1.015 Ua PH 5 Ua Color yellow [...] SEC 10.3-13.5 97 Laboratory test finding 01/31/2012 BHCG Quantitative < 2.1 MIU/ML 0-5 98 Basic Metabolic Panel 01/31/2012 Sodium 138 mmol/L 135-145 Potassium 3.8 mmol/L 3.5-5.0 Chloride 103 mmol/L 101-111 Co2 (Carbon Dioxide) 30.0 mmol/L 22-32 Anion Gap 5.0 mmol/L 2-11 99 Glucose 77 mg/dL 70-100 BUN 15 mg/dL 6-24 Creatinine 0.6 mg/dL 0.50-1.40 One Over Creatinine 1.66 BUN/Creatinine Ratio 25.0 High 8-20 Calcium 9.1 mg/dL 8.1-9.9 eGFR Non- 105.8 > 60 eGFR 136.1 > 60 100 Laboratory test finding 01/31/2012 PTT (Aptt) 28.1 SEC 25.1-38.5 Laboratory test finding 07/05/2011 TSH 1.53 MIU/ML 0.34-5.60 Thyroxine Free 0.56 ng/dL Low 0.61-1.24 Laboratory test finding 04/18/2011 CPK (Creatine Kinase) 108 U/L 0-170 Hepatitis B Surface AB 04/18/2011 Hepatitis B Surface AB Reactive Nonreactive Hbsab Index > 100.00 101 Laboratory test finding 04/18/2011 Hepatitis C Antibody Nonreactive Nonreactive Hepatitis B Surface Ag Nonreactive Nonreactive Hepatitis B Core AB, Total Positive Negative 102 Hepatitis Be Antibodies Positive Negative 103 Laboratory test finding 04/18/2011 Ferritin < 10 [...] mmol/L 22-32 Anion Gap 7.0 mmol/L 2-11 104 Glucose 93 mg/dL 70-100 BUN 12 mg/dL 6-24 Creatinine 0.8 mg/dL 0.50-1.40 One Over Creatinine 1.25 BUN/Creatinine Ratio 15.0 8-20 Calcium 9.4 mg/dL 8.1-9.9 Total Protein 6.9 GM/DL 6.2-8.1 Albumin 4.0 GM/DL 3.6-5.4 Globulin 2.9 GM/DL 2-4 Albumin/Globulin Ratio 1.4 1-3 Bilirubin Total 0.7 mg/dL 0.4-1.5 105 Alkaline Phosphatase 62 U/L 30-110 Alt (SGPT) 22 U/L 14-54 Ast (Sgot) 21 U/L 12-42 eGFR Non- 75.9 > 60 eGFR 97.6 > 60 106 Lipid Profile (Trig/Chol/HDL) 04/18/2011 Triglyceride 122 mg/dL 40-200 Cholesterol 240 mg/dL High Less Than 200 107 High Density Lipoprotein 65 mg/dL High 40-60 108 Cholesterol/HDL Ratio 3.69 AVERAGE 1-4.44 Low Density Lipoprotein 151 mg/dL High Less Than 100 109 Laboratory test finding 03/29/2011 Ferritin < [...] D Total 25 ng/mL () 110 1 Bead Flipper: [id number] [facility] Severe Sepsis and Septic Shock Management Bundle [...] [address]: Maco Nettles MD Acct: [id number] Unit: [id number] AGE: 57 Location: ED Re08/09/17 SEX: F Status: DEP ER SPEC: [id number] HASEEB: 08/09/[address] [facility] [address]: Maco Nettles MD REQ: [id number] RECD: 08/09/17 STATUS: CELIA ERNANDEZ DR: Lui Samson MD _ SOURCE: URINE SPDESC: ORDERED: Urine Culture Procedure Result Reported Site Urine Culture Final 08/11/17- 0854 ML No Growth (<1,000 CFU/mL) * ML - Main Lab . END OF REPORT DEPARTMENT OF PATHOLOGY, [address] [place] [address] Wayne Duff M.D. Director [facility] # [id number] 10 Bead Flipper: [id number] 11 Because ethnic data is not always [...] 160-189 Very High: >[address] [facility] Severe Sepsis and Septic Shock Management Bundle [...] 18 99th percentile=0.04 ng/mL Troponin results at [facility] and [facility] are not interchangeable. 19 Desirable <150 Borderline high 150-199 High 200-499 Very High >500 20 Desirable <200 Borderline high 200-239 High >239 21 Low <40 Desirable: 40-60 High: >60 22 Desirable: <100 mg/dL Near Optimal: 100-129 mg/dL Borderline High: 130-159 mg/dL High: 160-189 mg/dL Very High: >189 mg/dL 23 [id number] 24 Because ethnic data is not always [...] 5 Kidney failure <15 (or dialysis) 25 [id number] 26 [id number] 27 Serologic response to B. burgdorferi infection is not detected, but cannot rule out early infection during which low or undetectable antibody levels to B. burgdorferi may be present. If clinically indicated, a new serum specimen should be submitted in 7-14 days. Lipemic Test Performed by: [place] [address] Assembler: Quan Fishman II, M.D., Ph.D. 28 No [...] not reviewed by physician. Test Performed by: [place] [address] Assembler: Quan Fishman II, M.D., Ph.D. 29 Test Performed by: [place] [address] Assembler: Quan Fishman II, M.D., Ph.D. 30 Result in log IU/mL is Undetected The quantification range of this assay is 20 IU/mL to 170,000,000 IU/mL (1.30 log IU/mL to 8.23 log IU/mL). Testing was performed by the CAROL AmpliPrep/CAROL TaqMan HBV test, version 2.0 ([employer] Test Performed by: [place] [address] Assembler: Quan Fishman II, M.D., Ph.D. 31 Test Performed by: [facility] [place] [address] Assembler: Quan Fishman II, M.D., Ph.D. 32 If clinically indicated, testing for Hepatitis B Core IgM antibody is necessary to differentiate between acute and past HBV infection. Test Performed by: [facility] - [address] [address] Assembler: Quan Fishman II, M.D., Ph.D. 33 [id number] 34 This assay does not differentiate between reactivity due to a vaccine-induced immune response or an immune response induced by infection with HBV. 35 [id number] 36 SEE RESULT BELOW Name: KEENA COATES : [address]: Kevin Boyd MD Acct: [id number] Unit: [id number] AGE: 55 Location: [facility] Re01/01/16 SEX: F Status: DEP ER SPEC: [id number] HASEEB: 01/01/16-[address] [facility] [address]: Sara Palacio NP REQ: [id number] RECD: 01/02/16-811 STATUS: CELIA ERNANDEZ DR: [facility] Lui Samson MD _ SOURCE: URINE SPDESC: ORDERED: Urine Culture COMMENTS: [id number] Procedure Result Reported Site Urine Culture Final 01/03/16- 1457 ML No Growth (<1,000 CFU/mL) * ML - MAIN LAB ([facility]) . END OF REPORT * ML=Testing performed at Main Lab DEPARTMENT OF PATHOLOGY, [address] [place] [address] Wayne Duff M.D. Director [facility] # [id number] 37 [facility] Severe Sepsis and Septic Shock Management Bundle Measure requires all lactic acids initially measuring >2.0 mmol/L be repeated. 38 Reference Range and Interpretation: TnI (ng/mL) Interpretation Less Than 0.03 ng/mL Not supportive of diagnosis of [place] 0.03 - 0.50 ng/mL Indeterminate: suggest serial studies if clinically indicated. Greater than 0.5 ng/mL Consistent with diagnosis of [place] 39 Because ethnic data is not always [...] [address]: Dwight Brown MD Acct: [id number] Unit: [id number] AGE: 55 Location: LAB Re04/14/15 SEX: F Status: REG REF SPEC: [id number] HASEEB: 04/14/[address] [facility] [address]: Dwight Brown MD REQ: [id number] RECD: 04/14/15 STATUS: SULTANA ERNANDEZ DR: Alcides Brody MD _ ORDERED: THIN PREP NON G FINAL DIAGNOSIS Urine, voided: Negative for malignant cells. URINE VOID CLINICAL HISTORY Gross hematuria GROSS DESCRIPTION 5 mls of cloudy peach colored urine. Signed (signature on file) Wayne Duff MD 1347 END OF REPORT * ML=Testing performed at Main Lab DEPARTMENT OF PATHOLOGY, [address] [place] [address] Wayne Duff M.D. Director [facility] # [id number] 43 Because ethnic data is not always [...] [address]: Eusebio Matute MD Acct: [id number] Unit: [id number] AGE: 54 Location: ED Re12/23/14 SEX: F Status: DEP ER SPEC: [id number] HASEEB: 12/24/[address]: Gene Godoy DO REQ: [id number] RECD: 12/24/14 STATUS: CELIA ERNANDEZ DR: Alcides Brody MD _ SOURCE: URINE SPDESC: ORDERED: Urine Culture Procedure Result Verified Site Urine Culture Final 12/26/14- 1034 ML Organism 1 NORMAL CHAVEZ Earling Count 25-50,000 (Moderate) CFU/ML * ML - MAIN LAB ([facility]) . END OF REPORT * ML=Testing performed at Main Lab DEPARTMENT OF PATHOLOGY, [address] [place] [address] Wayne Duff M.D. Director [facility] # [id number] 46 SEE RESULT BELOW Name: KEENA COATES : [address]: Eusebio Garcia MD Acct: [id number] Unit: [id number] AGE: 54 Location: [facility] Re12/23/14 SEX: F Status: DEP ER SPEC: [id number] HASEEB: 12/23/[address] [facility] [address]: Eusebio Garcia MD REQ: [id number] RECD: 12/24/14 STATUS: CELIA ERNANDEZ DR: [facility] Alcides Brody MD _ SOURCE: THROAT SPDESC: ORDERED: Throat Beta Str Procedure Result Verified Site Throat Beta Strep Culture Final 12/26/14- 0850 ML Negative For Group A Beta Streptococcus * ML - MAIN LAB ([facility]) . END OF REPORT * ML=Testing performed at Main Lab DEPARTMENT OF PATHOLOGY, [address] [place] [address] Wayne Duff M.D. Director [facility] # [id number] 47 RUN DATE: 09/16/14 [facility] LAB LIVE PAGE 1 RUN TIME: [address] [place] [address] Specimen Inquiry Name: KEENA COATES : [address]: Quan Guerrero MD Acct: [id number] Unit: [id number] AGE: 54 Location: ED Re09/14/14 SEX: F Status: DEP ER SPEC: [id number] HASEEB: 09/14/14-[address] [facility] [address]: Quan Guerrero MD REQ: [id number] RECD: 09/14/14 STATUS: COMP AWAIS DR: Alcides Brody MD _ SOURCE: URINE SPDESC: ORDERED: Urine Culture Procedure Result Verified Site Urine Culture Final 09/16/14- 0826 ML Organism 1 NORMAL CHAVEZ Earling Count 10-25,000 (Moderate) CFU/ML * ML - MAIN LAB ([facility]) . END OF REPORT * ML=Testing performed at Main Lab DEPARTMENT OF PATHOLOGY, [address] [place] [address] Wayne Duff M.D. Director [facility] # [id number] 48 Please note: The following may produce [...] 0.03 ng/mL Not supportive of diagnosis of IA 0.03 - 0.50 ng/mL Indeterminate: suggest serial studies if clinically indicated. Greater than 0.5 ng/mL Consistent with diagnosis of IA 52 Acute inflammation: >10.00 53 Because ethnic [...] of <18.00 are negative. Test Performed by: [place] [address] Assembler: Quan Fishman II, M.D., Ph.D. 56 Results with Index Values of <8.95 are negative. Test Performed by: [place] [address] Assembler: Quan Fishman II, M.D., Ph.D. 57 Results with Index Values of <36.00 are negative. Test Performed by: [place] [address] Assembler: Quan Fishman II, M.D., Ph.D. 58 RUN DATE: 08/21/14 [facility] LAB LIVE PAGE 1 RUN TIME: [address] [place] [address] Specimen Inquiry Name: KEENA COATES : [address]: Alcides Brody MD Acct: [id number] Unit: [id number] AGE: 54 Location: [facility] Re08/21/14 SEX: F Status: REG REF SPEC: [id number] HASEEB: 08/21/14-[address] [facility] [address]: Alcides Brody MD REQ: [id number] RECD: 08/21/14 STATUS: RES _ SOURCE: STOOL SPDESC: ORDERED: E.coli O157:H7, Stool Culture, C. diff Amp DNA, O P (Full) QUERIES: Provider Requisition # [id number] Procedure Result Verified Site E.coli O157:H7 Culture [...] performed at Main Lab DEPARTMENT OF PATHOLOGY, [facility] [employer] [place], [place] [address] Wayne Duff M.D. Director [facility] # [id number] RUN DATE: 08/21/14 [facility] LAB LIVE PAGE 2 RUN TIME: 6600 [facility] [employer] [place], [place] [address] Specimen Inquiry Patient: KEENA COATES [id number] (Continued) Specimen: [id number] Collected: 08/21/14-1029 Received: 08/21/14-1056 (Continued) Procedure Result [...] Full PENDING * ML - MAIN LAB ([facility]) . END OF REPORT * ML=Testing performed at Main Lab DEPARTMENT OF PATHOLOGY, [address] [place] [address] Wayne Duff M.D. Director [facility] # [id number] 59 REFERENCE RANGE: NOT DETECTED The Entamoeba histolytica antigen EIA test detects only the antigen of the pathogenic E. histolytica; the non-pathogenic E. dispar is not detected. Test Performed by: [facility] [address] [facility] [place] [address] 60 RUN DATE: 08/23/14 [facility] LAB LIVE PAGE 1 RUN TIME: [address] [place] [address] Specimen Inquiry Name: KEENA COATES : [address]: Alcides Brody MD Acct: [id number] Unit: [id number] AGE: 54 Location: [facility] Re08/21/14 SEX: F Status: REG REF SPEC: [id number] HASEEB: 08/21/14-[address] [facility] [address]: Alcides Brody MD REQ: [id number] RECD: 08/21/14 STATUS: RES _ SOURCE: STOOL SPDESC: ORDERED: E.coli O157:H7, Stool Culture, C. diff Amp DNA, O P (Full) QUERIES: Provider Requisition # [id number] Procedure Result Verified Site E.coli O157:H7 Culture [...] performed at Main Lab DEPARTMENT OF PATHOLOGY, [facility] [employer] [place] [address] Wayne Duff M.D. Director [facility] # [id number] RUN DATE: 08/23/14 [facility] LAB LIVE PAGE 2 RUN TIME: 1110 [facility] [employer] [place], [place] [address] Specimen Inquiry Patient: KEENA COATES [id number] (Continued) Specimen: [id number] Collected: 08/21/14-0 Received: 08/21/14 (Continued) Procedure Result [...] Full PENDING * ML - MAIN LAB ([facility]) . END OF REPORT * ML=Testing performed at Main Lab DEPARTMENT OF PATHOLOGY, [facility] [employer] [place], [place] [address] Wayne Duff M.D. Director [facility] # [id number] 61 RUN DATE: 08/25/14 [facility] LAB LIVE PAGE 1 RUN TIME: 1608 [facility] [employer] [place], [place] [address] Specimen Inquiry Name: KEENA COATES : [address]: Alcides Brody MD Acct: [id number] Unit: [id number] AGE: 54 Location: [facility] Re08/21/14 SEX: F Status: REG REF SPEC: [id number] HASEEB: 08/21/14-[address] [facility] [address]: Alcides Brody MD REQ: [id number] RECD: 08/21/14 STATUS: COMP _ SOURCE: STOOL SPDESC: ORDERED: E.coli O157:H7, Stool Culture, [place] (Full) QUERIES: Provider Requisition # [id number] Procedure Result Verified Site E.coli O157:H7 Culture [...] performed at Main Lab DEPARTMENT OF PATHOLOGY, [facility] [employer] [place], [place] [address] Wayne Duff M.D. Director [facility] # [id number] RUN DATE: 08/25/14 [facility] LAB LIVE PAGE 2 RUN TIME: [address] [place] [address] Specimen Inquiry Patient: KEENA COATES [id number] (Continued) Specimen: [id number] Collected: 08/21/14-1029 Received: 08/21/14-1056 (Continued) Procedure Result [...] performed at Main Lab DEPARTMENT OF PATHOLOGY, [address] [place] [address] Wayne Duff M.D. Director [facility] # [id number] RUN DATE: 08/25/14 [facility] LAB LIVE PAGE 3 RUN TIME: [address] [place] [address] Specimen Inquiry Patient: LILIAKEENA [id number] (Continued) Specimen: [id number] Collected: 08/21/14-1029 Received: 08/21/14-1056 (Continued) Procedure Result Verified Site Ova Parasite Concen Full Final (continued) 08/25/14- 1608 Final Result No Ova Parasites seen by Ethyl Acetate Concentration No Cysts or Trophs Seen on Trichrome smear * ML - MAIN LAB ([facility]) . END OF REPORT * ML=Testing performed at Main Lab DEPARTMENT OF PATHOLOGY, [facility] [employer] [place], [place] [address] Wayne Duff M.D. Director [facility] # [id number] RUN DATE: 08/24/14 [facility] LAB LIVE PAGE 1 RUN TIME: 8492 [facility] [employer] [place], [place] [address] Specimen Inquiry Name: KEENA COATES : [address]: Alcides Brody MD Acct: [id number] Unit: [id number] AGE: 54 Location: [facility] Re08/21/14 SEX: F Status: REG REF SPEC: [id number] HASEEB: 08/21/14-[address] [facility] [address]: Alcides Brody MD REQ: [id number] RECD: 08/21/14 STATUS: RES _ SOURCE: STOOL SPDESC: ORDERED: E.coli O157:H7, Stool Culture, C. diff Amp DNA, O P (Full) QUERIES: Provider Requisition # [id number] Procedure Result Verified Site E.coli O157:H7 Culture [...] performed at Main Lab DEPARTMENT OF PATHOLOGY, [facility] [employer] [place], [place] [address] Wayne Duff M.D. Director [facility] # [id number] RUN DATE: 08/24/14 [facility] LAB LIVE PAGE 2 RUN TIME: 7502 [facility] [employer] [place], [place] [address] Specimen Inquiry Patient: KEENA COATES [id number] (Continued) Specimen: [id number] Collected: 08/21/14-0 Received: 08/21/14-1056 (Continued) Procedure Result [...] performed at Main Lab DEPARTMENT OF PATHOLOGY, [address] [place] [address] Wayne Duff M.D. Director [facility] # [id number] 63 Effective July 17, 2014 at 12:00pm [...] Very High >189 72 RUN DATE: 11/03/13 [facility] LAB LIVE PAGE 1 RUN TIME: 12[address] [place], [place] [address] Specimen Inquiry Name: KEENA COATES : [address]: Tarsha Underwood MD Acct: [id number] Unit: [id number] AGE: 53 Location: [facility] Re10/31/13 SEX: F Status: REG REF SPEC: [id number] HASEEB: 10/31/[address] [facility] [address]: Tarsha Underwood MD REQ: [id number] RECD: 10/31/13 STATUS: SOUT _ ORDERED: IMAGE ANALYSIS, HPV/Thin Prep FINAL DIAGNOSIS Negative for Intraepithelial lesion or Malignancy COMMENTS: Specimen sent to [facility] in [place], [place] on 11/03/13 by [id number] at 1220. Results will be reported separately. [...] was evaluated with the assistance of the JDCPhosphatePrep Test Imaging System. Due to cytologic findings at the life enrichment specialist microscope, comprehensive manual rescreening by a Can Cutter may be required. The Pap Smear is [...] performed at Main Lab DEPARTMENT OF PATHOLOGY, [address] [place] [address] Wayne Duff M.D. Director [facility] # [id number] 73 RESULT: Ectocervical/Endocervical 74 The following Other High Risk HPV types were not detected: 31, 33, 35, 39, 45, 51, 52, 56, 58, 59, 66, and 68 Test Performed by: [address] [address] Assembler: Jorge Luis Ruiz III, M.D. 75 Normal [...] <15 (or dialysis) 77 RUN DATE: 09/08/13 [facility] LAB LIVE PAGE 1 RUN TIME: [address] [place] [address] Specimen Inquiry Name: LILIAKEENA : [address]: Vasyl Richards MD Acct: [id number] Unit: [id number] AGE: 53 Location: ED Re09/06/13 SEX: F Status: DEP ER SPEC: [id number] HASEEB: 09/06/[address]: Patrizia TSAI REQ: [id number] RECD: 09/06/13 STATUS: CELIA ERNANDEZ DR: Vasyl Underwood MD _ SOURCE: URINE SPDESC: ORDERED: Urine Culture Procedure Result Verified Site Urine Culture Final 09/08/13- 0940 ML Organism 1 NORMAL CHAVEZ Earling Count 1-10,000 (Few) CFU/ML END OF REPORT * ML=Testing performed at Main Lab DEPARTMENT OF PATHOLOGY, [address] [place] [address] Wayne Duff M.D. Director [facility] Permit #[id number] FASTING 79 Normal Range 180 to 914 Indeterminate Range 145 to 180 Deficient Range <145 80 -- REFERENCE VALUE -- 25-HYDROXY D TOTAL (D2+D3) Optimum levels in the healthy population are 20-50, patients with bone disease may benefit from higher levels within this range. Test Performed by: [address] [address] Assembler: Jorge Luis Ruiz III, M.D. 81 Desirable <150 Borderline high 150-199 High 200-499 Very High >500 82 Desirable <200 Borderline high 200-239 High >239 83 Low <40 Desirable: 40-60 High: >60 84 Desirable <100 Near Optimal 100-129 Borderline high 130-159 High 160-189 Very High >189 85 FASTING 86 FASTING 87 2+ (>10-30 /hpf) 88 RUN DATE: 03/23/13 [facility] LAB LIVE PAGE 1 RUN TIME: [address] [place] [address] Specimen Inquiry Name: KEENA COATES : [address]: Tez Olmstead [facility]- Acct: [id number] Unit: [id number] AGE: 53 Location: LAB Re03/21/13 SEX: F Status: REG REF SPEC: [id number] HASEEB: 03/21/[address] [facility] [address]: Tez COWAN REQ: [id number] RECD: 03/21/13 STATUS: CELIA ERNANDEZ DR: Tarsha Underwood MD _ SOURCE: URINE SPDESC: ORDERED: Urine Culture Procedure Result Verified Site Urine Culture Final 03/23/13856 ML Organism 1 NORMAL CHAVEZ Earling Count 75-100,000 (Many) CFU/ML END OF REPORT * ML=Testing performed at Main Lab DEPARTMENT OF PATHOLOGY, [address] [place] [address] Wayne Duff M.D. Director [facility] Permit #[id number] 89 Dipstick not performed due to tech [...] normal population are 25-80 Test Performed by: [address] [address] Assembler: Jorge Luis Ruiz III, M.D. 96 Recommended INR for Patients on Oral Anticoagulants Prophylaxis 2.0 - 3.0 Treatment of thrombosis 2.0 - 3.0 Prevention of embolism 2.0 - 3.0 Prevention of embolism from prosthetic heart valves 2.5 - 3.5 97 DIAGNOSIS,TREATMENT,AND THERAPY MUST BE BASED ON THE INR VALUE ALONE. 98 * MALES: < 5.0 MIU/ML NON FEMALES [...] confirmed by an alternate HCG method. . 99 Anion gap measurement may be of limited value in the presence of any alkalosis, especially in a combined acid base disorder. . 100 Because ethnic data is not always readily [...] 15-29 5 Kidney failure <15 (or dialysis) 101 The World Health Organization (WHO) Hepatitis B Immunoglobulin 1st International Reference Preparation (1976): The accepted criteria for immunity to HBV is anti-HBs activity greater than or equal to 10 mIU/mL. An Index Value of 1.00 is equivalent to 10 mIU/mL. Samples with an Index Value of 1.00 or greater are considered reactive (protective) in accordance with the CDC guidelines. 102 If clinically indicated, testing for Hepatitis B Core IgM antibody is necessary to differentiate between acute and past HBV infection. Test Performed by: [facility] D[facility] Lab Med and Pathology [address] [place] [address] Assembler: Jorge Luis Ruiz III, M.D. 103 Test Performed by: [facility] [address] [place] [address] Assembler: Jorge Luis Ruiz III, M.D. 104 Anion gap measurement may be of limited value in the presence of any alkalosis, especially in a combined acid base disorder. . 105 A metabolite of Naproxen, O-desmethylnaproxen, has been shown to interfere with the Jendrassik-Amish method for measuring total bilirubin. Samples from patients who have taken Naproxen have shown spurious elevation in total bilirubin levels. 106 Because ethnic data is not always readily [...] 15-29 5 Kidney failure <15 (or dialysis) 107 CHOLESTEROL INTERPRETATION: Desirable: Less than 200 MG/DL Borderline-High Risk: 200-239 MG/DL High-Risk: 240 MG/DL and over 108 HDL INTERPRETATION: Undesirable: High Risk: Less than 40 MG/DL Desirable: Low Risk: Greater than 60 MG/DL 109 LDL INTERPRETATION: Low Risk Optimal Level: LDL Less than 100 MG/DL Near or Above Optimal: LDL 100-129 MG/DL Borderline High Risk: LDL 130-159 MG/DL High Risk: LDL 160-189 MG/DL Very High Risk: LDL Greater than 189 MG/DL 110 -- REFERENCE VALUE -- 25-HYDROXY D TOTAL (D2+D3) Optimum levels in the normal population are 25-80 Test Performed by: [facility] Pathology [address] [place] [address] Assembler: Jorge Luis Ruiz III, M.D. Procedures Date CPT Code Description Status Comment 11/07/2017 24034 ECHO Transthorasic Realtime Completed 2D W Doppler & Color Flow Hosp 03/12/2017 Mammogram Completed 12/21/2015 Mammogram Completed 12/15/2014 Mammogram Completed 02/17/2014 Colonoscopy Completed 11/18/2013 Mammogram Completed 01/31/2012 29245 EKG Tracing & Interpretation Completed 12/26/2011 Mammogram Completed 08/24/[address] Encinas, 2 hyperplastic polyps per [facility] Encounters Type Date Location Provider CPT E/M Dx Office Visit 11/07/2017 [facility] ,elizabeth Lopez M.D. 76279 R41.0 1:09p Hospitalists R51 R07.9 Office Visit 11/06/2017 1:08p [facility] ,[place] [address] R41.0 Hospitalists R51 Office Visit 11/01/2017 1:40p [facility] Lui Samson, 07281 M51.16 Medicine - [place] Selvin Roberson M54.2 M25.512 Office Visit 10/24/2017 2:40p [facility] Internal Medicine Lui Samson 69787 M54.2 - Ayla Roberson M25.512 Office Visit 10/17/2017 11:30a [facility] [address] G43.009 R94.02 M54.2 R20.0 Office Visit 08/14/2017 11:00a [facility] Internal Lui Samson, 22029 J45.909 Medicine - [place] Selvin Roberson K21.9 Office Visit 07/17/2017 8:40a [facility] Internal Lui Samson, 62297 J45.909 Medicine - [place] Selvin Roberson G47.00 K21.9 Office Visit 07/02/2017 9:45a [facility] [place], [address] Z98.84 [facility] K21.9 Office Visit 04/10/2017 8:00a [facility] Internal Lui Samson M.D. 75431 J06.9 Medicine - [place] [address] M25.571 Office Visit 03/27/2017 2:40p [facility] Internal Lui Samson, 96973 Z01.818 Medicine - [place] Selvin Roberson N90.3 J06.9 Office Visit 02/13/2017 11:30a [facility] [address] G43.009 R94.02 R42 R13.10 Office Visit 01/30/2017 11:20a [facility] Internal Beba Samson M.D. 52559 [address] - [place] [address] K21.9 J45.909 E66.9 G47.00 Office Visit 11/03/2016 11:00a [facility] [place] [address] R94.02 Services [facility] R42 Office Visit 10/17/2016 9:00a [facility] Internal Lui Samson, 70067 Z00.00 Medicine - [place] Selvin Roberson E78.2 R31.9 E87.6 Office Visit 10/13/2016 2:00p [facility] Alfredo Trevizo, 48359 R94.02 Medicine - [place] Roberson,FACP H81.399 E87.6 Office Visit 10/09/2016 1:20p [facility] Gayatri Samson M.D. 36042 G45.9 Medicine - [address] [address] I10 K21.9 Office Visit 09/05/2016 8:20a [facility] Internal Lui Samson, 92269 M77.11 Medicine - [place] [address] M.DDoug M25.512 K21.9 J45.909 Office Visit 07/05/2016 9:20a [facility] Internal Medicine - Darin Luna, CORROSION PREVENTION METAL SPRAYER [address] M77.9 Office Visit 07/03/2016 9:00a [facility] [place] [address] Z98.84 Credit Administration Manager K21.9 Office Visit 06/30/2016 2:40p [facility] Internal Alfredo Trevizo, 97761 J45.41 Medicine - [place] [address] M.DDoug,FACP Office Visit 01/11/2016 7:40a [facility] Internal Lui Samson, 02062 K21.9 Medicine - [place] [address] M.DDoug R31.9 D69.6 R94.5 G43.019 Office Visit 12/10/2015 2:20p [facility] Medicine - Darin Luna, MICHAELLE [address] Office Visit 12/03/2015 10:45a [facility] Kevin Cottrell, 89923 M54.5 [facility] AT Ronnie Roberson Office Visit 11/09/2015 8:00a [facility] Internal Medicine - Lui Samson, [address] M.Shahnaz J20.9 Office Visit 11/01/2015 3:00p [facility] Medicine - Darin Luna, MICHAELLE [address] R05 Office Visit 09/28/2015 8:00a [facility] Internal Lui Samson, 47530 M51.16 Medicine - [place] [address] M.DDoug S40.021A R53.83 Z23 Office Visit 08/31/2015 7:40a [facility] Internal Lui Samson, 54942 M51.16 Medicine - [address] [address] M.D. Office Visit 08/17/2015 2:20p [facility] Lui Samson, 75714 M51.16 Medicine - [address] [address] M.DDoug M25.552 Office Visit 06/04/2015 1:20p [facility] Medicine - Alcides Brody M.D. [address] M54.2 M54.5 Office Visit 04/08/2015 9:20a [facility] Internal Medicine Alcides Brody, [address] M.D. Office Visit 03/02/2015 9:40a [facility] Internal [facility] Alcides Brody [address] M.D. Office Visit 12/25/2014 4:00p [facility] Internal [facility] Josh Brody [address] M.D. Office Visit 11/09/2014 10:30a [facility] Kevin Cottrell 59647 724.2 Of [facility] M.D. Office Visit 09/08/2014 3:40p [facility] Internal [facility] Josh Brody [address] M.DDoug 535.40 787.20 535.50 Office Visit 08/26/2014 10:00a [facility] Kevin Cottrell M.D. 56812 724.2 [facility] Office Visit 08/25/2014 3:20p [facility] Beba Brody M.D. [address] 787.91 724.2 724.8 Office Visit 08/20/2014 11:20a [facility] Beba Brody M.D. 14447 009.3 - [address] [address] 276.51 787.91 Office Visit 07/29/2014 10:30a [facility] Kevin Cottrell 48425 724.2 [facility] M.D. Office Visit 06/24/2014 3:30p [facility] Kevin Cottrell 87359 724.2 [facility] M.DDoug Office Visit 06/09/2014 2:40p [facility] Medicine Josh Brody 10598 493.00 Ayla Roberson 784.0 724.5 722.52 Office Visit 04/24/2014 3:00p [facility] Beba Brody M.D. 23941 724.5 - Ayla 722.91 722.52 Office Visit 03/31/2014 10:20a [facility] Medicine Maurilio Torrez, 86141 719.42 - Ayla Roberson V04.81 Office Visit 03/03/2014 4:00p [facility] Medicine Eusebio Flores, MICHAELLE 16150 465.9 - [place] Office Visit 01/27/2014 11:00a [facility] Medicine Eusebio Flores, MICHAELLE 20899 723.1 - [place] Office Visit 01/06/2014 11:40a [facility] Medicine Johana Ferreira N.P. 54994 530.81 - [place] Office Visit 10/31/2013 2:00p [facility] Medicine Tarsha Underwood M.D. 14462 V76.2 - [place] V76.10 V70.0 296.31 535.00 V45.86 Office Visit 09/30/2013 10:20a [facility] Medicine Johana Ferreira N.P. 57987 528.9 - [place] Office Visit 09/12/2013 1:40p [facility] Medicine Tarsha Underwood M.D. 83492 599.70 - [place] 724.5 Office Visit 09/02/2013 11:20a [facility] Medicine Johana Ferreira N.P. 95773 465.9 - [place] 535.00 724.5 Office Visit 06/27/2013 2:40p [facility] Medicine - Tarsha Underwood M.D. 27138 722.93 [place] 724.5 Office Visit 05/26/2013 3:00p [facility] Medicine - Tarsha Underwood M.D. 67429 722.93 [place] 724.5 Office Visit 03/21/2013 11:40a [facility] Medicine - Tarsha Underwood M.D. 71200 724.5 [place] 599.70 719.45 Office Visit 02/03/2013 9:00a [facility] Medicine - Tarsha Underwood M.D. 92987 296.31 [place] 724.5 Office Visit 12/18/2012 11:20a [facility] Medicine Tarsha Underwood M.D. 98710 724.5 - [place] Office Visit 12/10/2012 3:40p [facility] Medicine Johana Ferreira N.P. 74112 724.5 - [place] Office Visit 08/30/2012 1:40p [facility] Medicine Tarsha Underwood M.D. 36197 530.12 - [place] 724.5 296.31 626.8 V70.0 Office Visit 08/05/2012 10:40a [facility] Medicine - Tarsha Underwood M.D. 32838 724.5 [place] 296.31 530.12 Office Visit 07/01/2012 2:20p [facility] Medicine Tarsha Underwood M.D. 12408 724.5 [place] 722.93 Office Visit 05/31/2012 2:20p [facility] Medicine Tarsha Underwood M.D. 86661 724.5 [place] Office Visit 04/24/2012 10:40a [facility] Tarsha Underwood M.D. 57010 722.93 [place] 709.9 Office Visit 04/03/2012 9:20a [facility] Medicine Tarsha Underwood M.D. 56568 722.93 [place] Office Visit 03/27/2012 12:40p [facility] Medicine Tarsha Underwood M.D. 84055 724.5 [place] 722.93 Office Visit 03/15/2012 10:40a [facility] Medicine Tarsha Underwood M.D. 43163 722.93 [place] 724.5 Office Visit 01/31/2012 11:20a [facility] Tarsha Underwood M.D. 40461 722.93 [place] 493.90 V45.86 296.31 281.9 Office Visit 01/08/2012 9:40a [facility] Medicine Tarsha Underwood M.D. 38410 782.3 [place] 724.5 493.90 Office Visit 11/17/2011 4:00p [facility] Medicine Tarsha Underwood M.D. 81036 722.93 [place] 724.5 995.3 Office Visit 11/03/2011 12:40p [facility] Tarsha Underwood M.D. 13810 722.93 [place] Office Visit 10/13/2011 2:00p [facility] Medicine Tarsha Underwood M.D. 99064 722.93 [place] 724.5 V45.86 Office Visit 09/13/2011 10:40a [facility] Medicine - Tarsha Underwood M.D. 24902 722.93 [place] V45.86 Office Visit 07/28/2011 10:40a [facility] Medicine - Tarsha Underwood M.D. 45085 722.93 [place] 783.1 296.31 789.02 Office Visit 07/11/2011 4:20p [facility] Medicine Johana Ferreira, N.P. 74509 724.5 - [place] Office Visit 07/05/2011 1:40p [facility] Medicine Tarsha Underwood M.D. 39499 783.1 - [place] Office Visit 06/23/2011 8:40a [facility] Medicine Tarsha Underwood M.D. 27401 715.11 - [place] Office Visit 06/09/2011 11:00a [facility] Medicine Tarsha Underwood M.D. 54008 296.31 - [place] 719.41 Office Visit 05/10/2011 9:20a DO Not Use [facility] Tarsha Underwood M.D. 35318 296.31 Office Visit 04/26/2011 9:40a DO Not Use [facility]-[place] Tarsha Underwood M.D. 45662 296.31 Office Visit 04/12/2011 9:40a DO Not Use [facility] Tarsha Underwood M.D. 04657 281.9 V45.86 733.6 790.6 V02.61 Office Visit 03/29/2011 1:40p DO Not Use [facility] Tarsha Underwood M.D. 19055 281.9 807.00 296.31 Plan of Care Future Appointment(s):12/31/2017 10:00 am - Lui Samson M.D. at [facility] Medicine - [place] 11/20/2017 9:30 am - Quentin Sanders MD at [facility]04/15/2018 9:30 am - Parker Reis M.D. at [facility]11/19/2017 - Lui Samson M.D.R41.0 Disorientation, bcelbkinsqbW69.2 UiluhkvckjlV95.512 Pain in left shoulderFollow up:6 weeks/Cancell appt fefore this
[2017-12-05 20:59] LABS: ABS Basophils 0.1 10^3/ul (0-0.2); ABS Eosinophils 0.1 10^3/ul (0-0.6); ABS Lymphocytes 2.1 10^3/ul (1.0-4.8); ABS Monocytes 0.7 10^3/ul (0-0.8); ABS Neutrophils 4.1 10^3/ul (1.5-7.7); ABS Nucleated RBC 0 10^3/ul; Eosinophil % 1.3 % (0-6); Hematocrit 42 % (35-47); Hemoglobin 14.4 g/dl (12.0-16.0); Lymphocyte % 29.9 % (25-47); Mean Corpuscular HGB Conc 34 g/dl (31-36); Mean Corpuscular Hemoglobin 32 pg (27-31); Mean Corpuscular Volume 94 fL (80-97); Mean Platelet Volume 8.7 um3 (7.4-10.4); Nucleated Red Blood Cells % 0.1; Platelet Count 206 10^3/ul (150-450); Red Blood Count 4.48 10^6/ul (4.00-5.40); Red Cell Distribution Width 14 % (10.5-15); White Blood Count 7.1 10^3/ul (3.5-10.8)
[2017-12-05 21:12] LABS: EGFR Non-African American 67.4 (>60)
[2017-12-05 22:26] LABS: Urine Appearance Clear; Urine Blood 3+ (Negative); Urine Color Yellow; Urine Ketones Negative (Negative); Urine Protein Negative (Negative); Urine Red Blood Cell 3+(>10/hpf) (Absent); Urine Specific Gravity 1.025 (1.010-1.030); Urine Urobilinogen Negative (Negative); Urine White Blood Cell 2+(11-20/hpf) (Absent)
[2017-12-06] MEDS ORDERED: Ketorolac INJ* 30 MG/ML 1 ML VIAL IM ONE (00:16)
--- NOTE | 2017-12-06 00:51 | ED ---
GI/ HPI - HPI Summary HPI Summary: 57-year-old male presents with potential vaginal bleeding for the past day. She states that when she wipes she noticed some blood on her toilet paper. She states that unsure if it is urethral or vagina bleeding. She denies any blood in her stool. She is so she started to have blood on her underwear. It is not a lot of blood. She denies any belly pain. She admits to right flank pain. She denies any fevers. No nausea or vomiting. No diarrhea no constipation. No previous belly surgeries. No chest pain shortness breath. She denies any dizziness. No history of kidney stones or vaginal bleeding. She is not on blood thinners. - History of Current Complaint Chief Complaint: EDFlankPain Time Seen by Provider: 12/05/17 22:58 Stated Complaint: ABNORMAL BLEEDING Hx Last Menstrual Period: age 50 Pain Intensity: 8 - Additional Pertinent History Primary Care Physician: [id number] - Allergy/Home Medications Allergies/Adverse Reactions: Allergies Allergy/AdvReac Type Severity Reaction Status Date / Time Adhesive Tape Allergy Rash Verified 12/05/17 18:52 cephalexin [From Keflex] Allergy Unknown Verified 12/05/17 18:52 Reaction Details hydromorphone Allergy Unknown Verified 12/05/17 18:52 Reaction Details morphine Allergy Abdominal Verified 12/05/17 18:52 Pain oxycodone [From Percocet] Allergy Unknown Verified 12/05/17 18:52 Reaction Details Penicillins Allergy Unknown Verified 12/05/17 18:52 Reaction Details Sulfa (Sulfonamide Allergy Unknown Verified 12/05/17 18:52 Antibiotics) Reaction Details tigecycline [From Tygacil] Allergy Unknown Verified 12/05/17 18:52 Reaction Details PMH/Surg Hx/FS Hx/Imm Hx Endocrine/Hematology History: Reports: Hx Anemia Denies: Hx Anticoagulant Therapy, Hx Diabetes, Hx Systemic Lupus Erythematosus, Hx Thyroid Disease Cardiovascular History: Denies: Hx Hypertension, Hx Pacemaker/ICD Respiratory History: Reports: Hx Asthma Denies: Hx Chronic Obstructive Pulmonary Disease (COPD) GI History: Reports: Hx Gastroesophageal Reflux Disease - REPAIRED IN 2010- WITH REVISION OF LAP BANDING, Hx Hiatal Hernia - REPAIRED IN 2010- WITH REVISION OF LAP BANDING Denies: Hx Ulcer History: Denies: Hx Dialysis, Hx Renal Disease Musculoskeletal History: Reports: Hx Arthritis - BACK, LEFT SHOULDER Sensory History: Reports: Hx Contacts or Glasses Denies: Hx Deafness, Hx Hearing Aid Opthamlomology History: Reports: Hx Contacts or Glasses Neurological History: Reports: Hx Headaches, Hx Migraine - OCCASION- TREATS WITH REST AND TYLENOL, Other Neuro Impairments/Disorders - 3 SX'S FUSIONS L SPINE MOST RECENT 12 [place] Denies: Hx Dementia, Hx Seizures Psychiatric History: Reports: Hx Anxiety - ON MEDICATION FOR, Hx Depression, Hx Panic Disorder Denies: Hx Substance Abuse - Surgical History Surgery Procedure, Year, and Place: LUMBAR SURGERY X 3 - 2011;. GALLBLADDER REMOVED ;. TONSILECTOMY ;. TUBAL LIGATION ;. LAPBAND 2007 AND REVISION 2010; . POLYPS/CYSTS REMOVED FRON UTERUS & CERVIX ;. ANAL FISSURE;. PINKY FINGER RIGHT CUT TENDON/REPAIR ;. MASS ON OUTSIDE OF CERVIX REMOVED 04/17/17 Hx Anesthesia Reactions: Yes - RESPIRATIONS VERY LOW- WITH SURGERIES- - Immunization History Date of Tetanus Vaccine: unknown Immunizations Up to Date: Yes Infectious Disease History: No Infectious Disease History: Denies: Hx Clostridium Difficile, Hx Hepatitis, Hx Human Immunodeficiency Virus (HIV), Hx of Known/Suspected MRSA, Hx Shingles, Hx Tuberculosis, Hx Known/ Suspected VRE, Hx Known/Suspected VRSA, History Other Infectious Disease, Traveled Outside the [place] in Last 30 Days - Family History Known Family History: Positive: Other - mother and sister have gout Negative: Diabetes Family History: negative for DM2 - Social History Alcohol Use: None Hx Substance Use: No Substance Use Type: Reports: None Hx Tobacco Use: No Smoking Status (MU): Never Smoked Tobacco Review of Systems Negative: Fever Negative: Chest Pain Negative: Shortness Of Breath Negative: Abdominal Pain, Nausea Positive: flank pain, other - vaginal bleeding All Other Systems Reviewed And Are Negative: Yes Physical Exam Triage Information Reviewed: Yes Vital Signs On Initial Exam: Initial Vitals Temp Pulse Resp BP Pulse Ox 96.6 F 98 16 133/88 98 12/05/17 18:48 12/05/17 18:48 12/05/17 18:48 12/05/17 18:48 12/05/17 18:48 Vital Signs Reviewed: Yes Appearance: Positive: Well-Appearing Skin: Positive: Warm, Dry Head/Face: Positive: Normal Head/Face Inspection Eyes: Positive: Normal, Conjunctiva Clear ENT: Positive: Pharynx normal Respiratory/Lung Sounds: Positive: Clear to Auscultation, Breath Sounds Present Cardiovascular: Positive: Normal, RRR Abdomen Description: Positive: Nontender, Soft, CVA Tenderness (R). Negative: CVA Tenderness (L) Bowel Sounds: Positive: Present Pelvic Exam: Positive: External Exam Normal, No Cerv. Motion Tender, Blood - in vaginal vault appears old, no bleeding cervix. Negative: Active Bleeding Musculoskeletal: Positive: Normal Neurological: Positive: Normal Psychiatric: Positive: Normal Diagnostics - Vital Signs Vital Signs Temp Pulse Resp BP Pulse Ox 12/06/17 00:18 60 98 12/06/17 00:17 97.7 F 64 125/78 97 12/05/17 23:00 62 96 12/05/17 22:53 62 115/81 97 12/05/17 22:30 97.2 F 69 16 109/67 99 12/05/17 20:29 98.1 F 75 16 130/80 100 12/05/17 18:48 96.6 F 98 16 133/88 98 - Laboratory Lab Results: Lab Results 12/05/17 12/05/17 12/05/17 Range/Units 20:26 20:26 22:07 WBC 7.1 (3.5-10.8) 10^3/ul RBC 4.48 (4.00-5.40) 10^6/ul Hgb 14.4 (12.0-16.0) g/dl Hct 42 (35-47) % MCV 94 (80-97) fL MCH 32 H (27-31) pg MCHC 34 (31-36) g/dl RDW 14 (10.5-15) % Plt Count 206 (150-450) 10^3/ul MPV 8.7 (7.4-10.4) um3 Neut % (Auto) 58.0 (38-83) % Lymph % (Auto) 29.9 (25-47) % [place] % (Auto) 9.6 H (0-7) % Eos % (Auto) 1.3 (0-6) % Baso % (Auto) 1.2 (0-2) % Absolute Neuts (auto) 4.1 (1.5-7.7) 10^3/ul Absolute Lymphs (auto) 2.1 (1.0-4.8) 10^3/ul Absolute Monos (auto) 0.7 (0-0.8) 10^3/ul Absolute Eos (auto) 0.1 (0-0.6) 10^3/ul Absolute Basos (auto) 0.1 (0-0.2) 10^3/ul Absolute Nucleated RBC 0 10^3/ul Nucleated RBC % 0.1 Sodium 138 (135-145) mmol/L Potassium 4.3 (3.5-5.0) mmol/L Chloride 102 (101-111) mmol/L Carbon Dioxide 29 (22-32) mmol/L Anion Gap 7 (2-11) mmol/L BUN 24 (6-24) mg/dL Creatinine 0.87 (0.51-0.95) mg/dL Est GFR ( Amer) 81.5 (>60) Est GFR (Non-Af Amer) 67.4 (>60) BUN/Creatinine Ratio 27.6 H (8-20) Glucose 103 H (70-100) mg/dL Calcium 9.3 (8.6-10.3) mg/dL Total Bilirubin 0.40 (0.2-1.0) mg/dL AST 27 (13-39) U/L ALT 35 (7-52) U/L Alkaline Phosphatase 80 (34-104) U/L C-Reactive Protein 1.18 (<8.01) mg/L Total Protein 7.4 (6.4-8.9) g/dL Albumin 4.2 (3.2-5.2) g/dL Globulin 3.2 (2-4) g/dL Albumin/Globulin Ratio 1.3 (1-3) Lipase 47 (11.0-82.0) U/L Urine Color Yellow Urine Appearance Clear Urine pH 5.0 (5-9) Ur Specific [place] 1.025 (1.010-1.030) Urine Protein Negative (Negative) Urine Ketones Negative (Negative) Urine Blood 3+ A (Negative) Urine Nitrate Negative (Negative) Urine Bilirubin Negative (Negative) Urine Urobilinogen Negative (Negative) Ur Leukocyte Esterase 1+ A (Negative) Urine WBC (Auto) 2+(11-20/hpf) A (Absent) Urine RBC (Auto) 3+(>10/hpf) A (Absent) Ur Squamous Epith Cells Present A (Absent) Urine Bacteria Absent (Absent) Hyaline Casts Present A (Absent) Urine Glucose Negative (Negative) Result Diagrams: 12/05/17 20:26 12/05/17 20:26 Lab Statement: Any lab studies that have been ordered have been reviewed, and results considered in the medical decision making process. - CT abd CT Interpretation: No Acute Changes CT Interpretation Completed By: Radiologist SAMIR Course/Dx - Course Course Of Treatment: 57-year-old male presents with potential vaginal bleeding for the past day. She states that when she wipes she noticed some blood on her toilet paper. She states that unsure if it is urethral or vagina bleeding. She denies any blood in her stool. She is so she started to have blood on her underwear. It is not a lot of blood. She denies any belly pain. She admits to right flank pain. She denies any fevers. No nausea or vomiting. No diarrhea no constipation. No previous belly surgeries. No chest pain shortness breath. She denies any dizziness. No history of kidney stones or vaginal bleeding. She is not on blood thinners. On exam tenderness right leg. Nontender abdomen. Has blood in vaginal vault. No active bleeding from cervix. As within normal limits. Urine shows a UTI. CT abd normal. We'll treat with Cipro with flank pain for 7 days in case is beginning of pyelo. Will follow up with scales inspector about bleeding. Discussed case with Dr. Ackerman. Patient understands and agrees with plan. - Diagnoses Differential Diagnoses - Female: Urinary Tract Infection, Ureteral Calculi, Vaginitis Provider Diagnoses: Vaginal bleeding, UTI (urinary tract infection) Discharge - Sign-Out/Discharge Documenting (check all that apply): Patient Departure - Discharge Plan Condition: Good Disposition: HOME Prescriptions: Ciprofloxacin TAB* [Cipro 500 MG TAB*] 500 mg PO BID #13 tab Patient Education Materials: Urinary Tract Infection in Women (ED) Referrals: Lui Samson MD [Primary Care Provider] - Additional Instructions: take cipro twice a day for 7 days Follow up with scales inspector Drink plenty of fluids Take Tylenol as need every 6 hours for pain Return to ED if develop any new or worsening symptoms - Billing Disposition and Condition Condition: GOOD Disposition: Home
[2017-12-06] MEDS ORDERED: Ciprofloxacin TAB* 500 MG PO ONE (00:56)
[2017-12-06 01:46] VITALS: BP 119/79
--- NOTE | 2017-12-06 09:02 | RAD ---
INDICATION: Right flank pain COMPARISON: CT urogram March 20, 2016 TECHNIQUE: Noncontrast axial source images were acquired from the level hemidiaphragms to the symphysis pubis as part of CT imaging for renal stone. Lung bases: The lung bases are clear. Liver: The liver is normal in size. Noncontrast imaging shows mild interval increase in size in the cyst in left hepatic lobe which measures 4.7 cm on the current examination, formerly 3.8 cm Or ductal dilatation. Gallbladder: Cholecystectomy. Spleen: The spleen is normal in size. The noncontrast CT appearance is normal. Pancreas: Noncontrast imaging shows no pancreatic mass or ductal dilitation. Adrenal glands: No masses are identified. Kidneys/Bladder: There is no evidence of nephrolithiasis or CT evidence of hydronephrosis. Noncontrast imaging shows no evidence of a new renal mass. There is a low-density anterior lower pole right kidney consistent with a cyst and better imaged on earlier contrast-enhanced imaging. The bladder is unremarkable.. Adenopathy: There is no evidence of intraperitoneal or retroperitoneal adenopathy. Evaluation is limited without oral contrast. Fluid collections: There are no free or localized fluid collections. Vessels: The aorta and iliac vessels are normal in caliber. There are no significant atherosclerotic changes. The IVC appears normal Pelvic organs: The uterus and adnexa appear normal GI tract: There is gastric lap banding. There is a hiatal hernia above the level of the gastric lap band. This appears unchanged, however. There is mild dilation of distal esophagus. Consider further gastric lap band evaluation. Soft tissues: No soft tissue abnormalities of the extraperitoneal abdomen or pelvis are identified. Osseous structures: There is extensive lumbar surgery with prior effusions. The appearance unchanged. IMPRESSION: 1. NO CT EVIDENCE OF UROLITHIASIS. 2. GASTRIC LAP BANDING DESCRIBED. THERE IS A HIATAL HERNIA ABOVE THE LEVEL OF THE LAP BAND. 3. HEPATIC AND RENAL CYSTS. 4. POSTOPERATIVE CHANGES OF THE LUMBAR SPINE
== END 2017-12-06 01:44 | disposition home or self-care (01) ==
LOC: ED 18:45
DX: N93.9 Abnormal uterine and vaginal bleeding, unspecified (principal); N39.0 Urinary tract infection, site not specified; K76.89 Other specified diseases of liver; N28.1 Cyst of kidney, acquired; F41.9 Anxiety disorder, unspecified; Z90.49 Acquired absence of other specified parts of digestive tract; Z98.84 Bariatric surgery status; Z88.1 Allergy status to other antibiotic agents; Z88.5 Allergy status to narcotic agent; Z88.0 Allergy status to penicillin; Z88.2 Allergy status to sulfonamides; Z91.048 Other nonmedicinal substance allergy status
CPT/HCPCS: 36415; 74176; 80053; 81003; 81015; 83690; 85025; 86140; 87086; 96372; 99283; A9270-GY; J1885

== ENCOUNTER 2018-01-08 12:43 | Emergency (ER) | payer OTHER ==
[2018-01-08] MEDS ORDERED: diPHENhydraMINE IV* 50 MG/ML 1 ml VIAL (BENADRYL) IV ONE (13:06)
[2018-01-08] MEDS ORDERED: Ketorolac INJ* 30 MG/ML 1 ML VIAL IV PUSH ONE (13:06)
[2018-01-08] MEDS ORDERED: NS 0.9% 1000 ML* 1,000 ML IV ONE (13:06)
[2018-01-08] MEDS ORDERED: PROCHLORPERAZINE INJ 5 MG/ML 2 ML VIAL IV PRN (13:06)
[2018-01-08] MEDS ORDERED: Dexamethasone IV* 4 MG/ML 1 ML (4 MG) IV SLOW PU ONE (13:07)
--- NOTE | 2018-01-08 13:07 | ED ---
Headache - HPI Summary HPI Summary: 57 y/o female presents to the ED c/o intermittent PHILLIPS starting 3 days ago. Rated 5/10. Associated sx: facial numbness around L side eye intermittently, dizziness , neck pain, L side flank pain. Pt seen by Dr. Almodovar 1 hr ago, sent to ED. Pt does not typically get migraine PHILLIPS's. - History Of Current Complaint Chief Complaint: EDHeadache Stated Complaint: HEADACHE/DIZZINESS/LT SIDE FACE NUMBNESS COME/GOES Hx Obtained From: Patient Hx Last Menstrual Period: age 50 Onset/Duration: Started days ago, Still Present Aggravating Factor: Nothing Allevating Factors: Nothing Associated Signs And Symptoms: Dizziness, Neck Pain, Other (Noted In Comments) - facial numbness, L side flank pain - Allergies/Home Medications Allergies/Adverse Reactions: Allergies Allergy/AdvReac Type Severity Reaction Status Date / Time Adhesive Tape Allergy Rash Verified 01/08/18 12:45 cephalexin [From Keflex] Allergy Unknown Verified 01/08/18 12:45 Reaction Details hydromorphone Allergy Unknown Verified 01/08/18 12:45 Reaction Details morphine Allergy Abdominal Verified 01/08/18 12:45 Pain oxycodone [From Percocet] Allergy Unknown Verified 01/08/18 12:45 Reaction Details Penicillins Allergy Unknown Verified 01/08/18 12:45 Reaction Details Sulfa (Sulfonamide Allergy Unknown Verified 01/08/18 12:45 Antibiotics) Reaction Details tigecycline [From Tygacil] Allergy Unknown Verified 01/08/18 12:45 Reaction Details PMH/Surg Hx/FS Hx/Imm Hx Endocrine/Hematology History: Reports: Hx Anemia Denies: Hx Anticoagulant Therapy, Hx Diabetes, Hx Systemic Lupus Erythematosus, Hx Thyroid Disease Cardiovascular History: Denies: Hx Hypertension, Hx Pacemaker/ICD Respiratory History: Reports: Hx Asthma Denies: Hx Chronic Obstructive Pulmonary Disease (COPD) GI History: Reports: Hx Gastroesophageal Reflux Disease - REPAIRED IN 2010- WITH REVISION OF LAP BANDING, Hx Hiatal Hernia - REPAIRED IN 2010- WITH REVISION OF LAP BANDING Denies: Hx Ulcer History: Denies: Hx Dialysis, Hx Renal Disease Musculoskeletal History: Reports: Hx Arthritis - BACK, LEFT SHOULDER Sensory History: Reports: Hx Contacts or Glasses Denies: Hx Deafness, Hx Hearing Aid Opthamlomology History: Reports: Hx Contacts or Glasses Neurological History: Reports: Hx Headaches, Hx Migraine - OCCASION- TREATS WITH REST AND TYLENOL, Other Neuro Impairments/Disorders - 3 SX'S FUSIONS L SP[place] MOST [place]ENT 12 [place] Denies: Hx Dementia, Hx Seizures Psychiatric History: Reports: Hx Anxiety - ON MEDICATION FOR, Hx Depression Denies: Hx Panic Disorder, Hx Substance Abuse - Surgical History Surgery Procedure, Year, and Place: LUMBAR SURGERY X 3 - 2012 -W/ CAGE/[facility] P[facility]/FUSION. GALLBLADDER REMOVED ;. TONSILECTOMY ;. TUBAL LIGATION ;. LAPBAND 2007 AND REVISION 2010;. POLYPS/CYSTS REMOVED FRON UTERUS & CERVIX ;. ANAL FISSURE;. PINKY FINGER RIGHT CUT TENDON/REPAIR ;. MASS ON OUTSIDE OF CERVIX REMOVED 04/17/17. [ End ] Hx Anesthesia Reactions: Yes - RESPIRATIONS VERY LOW- WITH SURGERIES- - Immunization History Date of Tetanus Vaccine: unknown Infectious Disease History: No Infectious Disease History: Denies: Hx Clostridium Difficile, Hx Hepatitis, Hx Human Immunodeficiency Virus (HIV), Hx of Known/Suspected MRSA, Hx Shingles, Hx Tuberculosis, Hx Known/ Suspected VRE, Hx Known/Suspected VRSA, History Other Infectious Disease, Traveled Outside the [place] in Last 30 Days - Family History Known Family History: Positive: Other - mother and sister have gout Negative: Diabetes Family History: negative for DM2 - Social History Alcohol Use: None Hx Substance Use: No Substance Use Type: Reports: None Hx Tobacco Use: No Smoking Status (MU): Never Smoked Tobacco Review of Systems Constitutional: Negative Eyes: Negative ENT: Negative Cardiovascular: Negative Respiratory: Negative Gastrointestinal: Negative Positive: flank pain - L side Musculoskeletal: Other - neck pain Skin: Negative Neurological: Other - dizziness Positive: Headache, Numbness - facial Psychological: Normal All Other Systems Reviewed And Are Negative: No Physical Exam - Summary Physical Exam Summary: Appearance: Alert, conversive, nontoxic appearing Skin: Warm, dry, no mottling, no rashes, no contusions HEENT: EOMI, PERRL, moist mucous membranes Neck: No masses on the neck, supple Respiratory: Clear to auscultation, breath sounds present, no rales, no rhonchi , no wheezes Cardiovascular: RRR, pulses are symmetrical in both lower and upper extremities Abdomen: Soft, non-tender Bowel Sounds: Present Musculoskeletal: No CVA tenderness, no obvious deformity, moving all extremities in a grossly normal manner Neurological: A&Ox3, CN II-XII Intact, moving all extremities symmetrically Psychiatric: Normal affect and mood Triage Information Reviewed: Yes Vital Signs On Initial Exam: Initial Vitals Temp Pulse Resp BP Pulse Ox 98.2 F 70 18 120/87 98 01/08/18 12:46 01/08/18 12:46 01/08/18 12:46 01/08/18 12:46 01/08/18 12:46 Vital Signs Reviewed: Yes Diagnostics - Vital Signs Vital Signs Temp Pulse Resp BP Pulse Ox 01/08/18 12:46 98.2 F 70 18 120/87 98 - Laboratory Result Diagrams: 01/08/18 13:30 01/08/18 13:30 Lab Statement: Any lab studies that have been ordered have been reviewed, and results considered in the medical decision making process. - CT BRAIN Ct CT Interpretation: No Acute Changes - No acute intracranial pathology. CT Interpretation Completed By: Radiologist Re-Evaluation - Re-Evaluation 1 Re-Evaluation Time: 14:15 Change: Improved - PHILLIPS 05/30. PT is feeling better. she wants to go home. I discussed with her her negative CT head. She states that this type of headache with symptoms is not a new occurence. I encouraged her to f/u with pcp this week. Pt was ambulatory at time of discharge. Headache Course/Dx - Course Assessment/Plan: 3 day intermittent PHILLIPS with L side facial numbness and dizziness. - Diagnoses Provider Diagnoses: Migraine Discharge - Sign-Out/Discharge Documenting (check all that apply): Patient Departure - Discharge Plan Condition: Stable Disposition: HOME Patient Education Materials: Migraine Headache (ED) Referrals: Lui Samson MD [Primary Care Provider] - Additional Instructions: return if worse or any new symptoms. Take all medications as previously instructed. It is important to follow up with your primary care physician. - Billing Disposition and Condition Condition: STABLE Disposition: Home - Attestation Statements Document Initiated by Scribe: Yes Documenting Scribe: Meet Anna Provider For Whom Scribe is Documenting (Include Credential): Stefanie Drake MD Scribe Attestation: Meet Maharaj, scribed for Stefanie Drake MD on 01/10/18 at 1153. Scribe Documentation Reviewed: Yes Provider Attestation: The documentation as recorded by the Meet borja accurately reflects the service I personally performed and the decisions made by me, Stefanie Drake MD
[2018-01-08] MEDS ORDERED: Metoclopramide IV* 5 MG/ML 2 ML VIAL ONE (13:20)
[2018-01-08] MEDS ORDERED: PROCHLORPERAZINE INJ 5 MG/ML 2 ML VIAL ONE (13:38)
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
--- OUTSIDE RECORDS SUMMARY | 2018-01-08 13:42 | XMS REPORT ---
:1960 External Reference #:[id number] Author Organization [facility] Address [address] [place] [address] [place] [address] Phone [phone] Care Team Providers Name Role Phone Lui Samson MD Primary Care Physician Unavailable Payers Type Date Identification Numbers Payment Provider Subscriber Commercial Policy Number: [id number] Agustín Coates Group Number: [id number] [address] PayID: [id number] [place] [address] Commercial Effective: Policy Number: Dennis/[employer] Keena Coates 2012 [id number] Medicaid Expires: 2012 PayID: [id number] [address] [address] [place] [address] Commercial Expires: 2012 Policy Number: [id number] Agustín Coates Group Name: CHAS# [id number] [address] PayID: [id number] [place] [address] Problems Date Description Provider Status Onset: 04/12/2011 [...] MD Active of the shoulder region Onset: 11/19/2017 Altered mental status Lui Samson M.D. 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 before breakfast Famotidine 01/30 Active Tablets 40mg 30tab 1 by mouth K21.9 s every day Pach[place]ara, 1 hour M.D. after dinner Ventolin HFA 01/30 Active Aerosol 108(90Bas 8gm 2 puffs by J45.909 e) mouth four Pachikara, mcg/Act times a M.D. 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 Handle disease Jobst Trouser 01/07 Active Misc 1Pair 1 pair prn 782.3 Eusebio 8-15MMHG/Knee /2011 to lower [place], SALES ADMINISTRATION SPECIALIST High/Women/Mediu legs m Citalopram Active Tablets 20mg 30tab 1 every [place] Hydrobromide / s day Karol Samson Tylenol PM Extra Active Tablets 500-25mg 1 tab by Unknown Strength /0000 mouth every 6 hours as needed Cyclobenzaprine Active Tablets 10mg 30tab 1 tablet Lui HCL / s by mouth [place], q8 hours M.D. as needed muscle spasms Flovent Diskus Active Aerosol 250mcg/Bl 1 puff Unknown /0000 ist twice a day Fexofenadine HCL 08/01 Hx Tablets 180mg 30tab once daily s [place], - M.D. 11/19 Zolpidem 07/17 Hx Tablets 5mg 30tab 1 tab G47.00 Lui Tartrate s daily at [facility], - bedtime M.D. 11/09 Dulera 07/17 Hx Aerosol 200-5mcg/ 8.800 2 puff J45.909 Act gm twice a [facility], - day M.D. 11/09 Montelukast 07/17 Hx Tablets 10mg 30tab once daily J45.909 Lui Sodium s [place] - M.D. 08/01 Levofloxacin [...] tab G47.00 Lui Tartrate s daily at [facility], - bedtime M.D. 07/17 Zolpidem [...] every day Josh Hollingsworth M.D.,[facility] 10/19 Klor-Con 10 10/13 Hx Tablets ER 10Meq 30tab 1 by mouth Alfredo s every day Josh Hollingsworth M.D.,[facility] 02/12 Diclofenac 09/05 Hx Gel 1% 100gm apply 2 M77.11 Lui Sodium times [place]ara, - daily M.D. 10/19 [...] 1 by mouth Alfredo s twice a D. [place]ell, - day for 7 M.D.,FACP Cheratussin ac 06/30 Hx Syrup 100-10mg/ 236ml 10 5ML milliliter Shahnaz Trevizo, - s by mouth M.D.,FACP 10/13 four times a day as needed Pantoprazole 01/[address] 20mg 60tab 1 tab K21.9 [place] Sodium /2015 s twice a Pachikara, - day [...] and [place]ara, - then 1tab M.D. 12/02 daily Zyrtec Allergy 10/31 Hx Tablets 10mg 30tab 1 by mouth J30.9 s every day MICHAELLE Luna - for the 01/10 next 3- weeks, then as needed Meloxicam 08/16 Hx Tablets 15mg 30tab once daily M25.552 Lui /2015 s with food Pachikara, - M.D. 01/10 [...] Hx Tablets 10mg 90tab one by M54.89 [place] HCL /2014 s mouth Pachikara, - three M.D. 10/19 times day as needed spasm Asmanex 06/09 Hx Aerosol 220mcg/In 1unit 1 puff po J45.20 Darin Schreiberhaler 120 /2015 h s bid Albanian, SALES ADMINISTRATION SPECIALIST Metered Doses - 11/10 Lasix 05/12 Hx [...] 465.8 Eusebio 12HR s mouth q12 Sandra SALES ADMINISTRATION SPECIALIST - hours 06/09 Omeprazole 01/06 Hx Capsules [...] Hx Aerosol 108(90Bas 1unit 2 puffs by e) s mouth Jeremy SALES ADMINISTRATION SPECIALIST - mcg/Act every 4 10/19 hours needed Cyclobenzaprine 06/27 Hx Tablets 5mg 60tab Take 1-2 722.93 Tarsha s tablets at [place], - night for M.D. 04/24 back pain Gabapentin 06/27 Hx Capsules 100mg 90cap take 1 M54.89 s tablet [place], - three to M.D. 08/16 four times daily for pain Cyclobenzaprine 03/21 Hx Tablets 5mg 60tab Take 1-2 722.93 Tarsha HCL s tablet [place], - three M.D. 06/27 times daily for back pain Gabapentin 03/21 Hx Capsules 300mg 30cap Take 1-2 724.5 s tablets at [place], - night M.D. 06/27 Percocet 12/10 Hx Tablets 5-325mg 30tab 1 po qhs 724.5 s prn pain Kj, - M.D. 06/27 Carafate 08/30 Hx Suspension 1GM/10ML 420ml take 2 530.12 teaspoonfu Kj, - ls by M.D. 09/16 mouth times a day before meals and at bedtime Calcium 08/05 Hx Chewtabs 260mg 30uni take 1-2 530.12 Tarsha Carbonate /2013 ts tablets Kj, - every 4-6 M.D. 08/30 hours as needed for heartburn Carafate 08/05 Hx Suspension 1GM/10ML 420ml take 2 530.12 Tarsha teaspoonfu Kj, - ls by M.D. 08/30 mouth times a day before meals and at bedtime Acetaminophen 04/24 Hx Capsules 500mg 100ca take 2 ps tablets Kj, - three M.D. 12/10 times daily as needed Oxycodone HCL 03/15 Hx Capsules 5mg 28cap 1-2 722.93 Tarsha s capsules jK, - at night M.D. 05/31 as needed [...] 5mg 30tab 1 by mouth 724.5 Milagros s at bedtime Patrick, - as needed M.D. 09/12 for pain Medrol Dosepak 07/11 Hx Tablets 4mg 1pak as 724.5 Milagros directed Josh Nguyen M.D. 09/12 Citalopram 06/09 Hx Tablets 20mg 30tab 1 po qd 296.31 Tarsha Hydrobromide s Kj - M.D. 09/02 Citalopram 05/10 Hx Tablets 10mg 30tab take 2 296.31 Tarsha Hydrobromide s tablet Kj, - daily. M.D. 07/05 Lexapro 04/26 Hx Tablets 10mg 60tab 1 tablet 296.31 s daily for Kj, - 1 week, M.D. 05/10 then tablets daily Ibuprofen 04/12 Hx Tablets 600mg 21tab 1 tablet 733.6 s three Kj, - times M.D. 05/10 daily with food x 7 days Vitamin D-1000 04/12 Hx Tablets 1000Unit 90tab 1 po qd V45.86 s Kj - M.D. 09/12 Multivitamins 04/12 Hx Tablets 90tab 1 po qd V45.86 s Kj - M.D. 05/10 Calcium Citrate 04/12 Hx [...] Hx Tablets 50mg 30tab take 05/22 Unknown / s tablet at - bedtime, 09/12 1 [...] /0000 every day - 11/09 Ranitidine HCL 00 Hx Tablets 75mg 1 daily in Unknown /0000 the - morning 03/27 Beet Root 00/00 Hx one tab Unknown /0000 daily - 11/09 Oxycodone HCL Hx Tablets 5mg 1-2 tabs Unknown /0000 by mouth - every 4-6 11/09 hours needed Imipramine HCL 00 Hx Tablets 25mg 1 @hs for Unknown /0000 a week - 11/19 Medications Administered in Office Medication Date Status Form Strength Qnty SIG Indications Ordering Provider Triamcinolone 11/20/ Administered Injection Zaneb (Kenalog) 2017 MD Tommy Immunizations CPT Code Status Date Vaccine Lot # [id number] Given 09/28/2015 Pneumonia Vaccine [id number] Given 03/31/2014 Flu Vaccine Split Virus Preservative Free For [id number] Indiv 3Yr Older Vital Signs Date Vital Result Comment 12/25/2017 Height 65 inches 5'5" Weight 218.00 lb BP Systolic 112 mmHg BP Diastolic 66 mmHg Respiratory Rate 18 /min Pain Level 5 BMI (Body Mass Index) 36.3 kg/m2 12/19/2017 Height 65 inches 5'5" Weight 220.00 lb BP Systolic Sitting 126 mmHg BP Diastolic Sitting 70 mmHg Pain Level 6 BMI (Body Mass Index) 36.6 kg/m2 12/17/2017 Height 65 inches 5'5" Weight 220.00 lb Heart Rate 78 /min BP Systolic Sitting 110 mmHg BP Diastolic Sitting 58 mmHg Body Temperature 97.5 F O2 % BldC Oximetry 96 % BMI (Body Mass Index) 36.6 kg/m2 11/20/2017 Height 65 inches 5'5" Weight 218.00 [...] Test Date Test Result H/L Range Note Urine Culture And 12/05/2017 Urine Culture SEE RESULT BELOW 1 Sensitivities Urinalysis Profile 12/05/2017 Urine Color Yellow Urine Appearance Clear Urine Specific [place] 1.025 1.010-1.030 Urine pH 5.0 5-9 Urine Urobilinogen Negative Negative Urine Ketones Negative Negative Urine Protein Negative Negative Urine Leukocytes 1+ Negative Urine Blood 3+ Negative Urine Nitrite Negative Negative Urine Bilirubin Negative Negative Urine Glucose Negative Negative Urine White Blood Cell 2+(11-20/hpf) Absent Urine Red Blood Cell 3+(>10/hpf) Absent Urine Bacteria Absent Absent Urine Squamous Epithelial Cell Present Absent Urine Hyaline Casts Present Absent CBC Auto Diff 12/05/2017 White Blood Count 7.1 10^3/uL 3.5-10.8 Red Blood Count 4.48 10^6/uL 4.00-5.40 Hemoglobin 14.4 g/dL 12.0-16.0 Hematocrit 42 % 35-47 Mean Corpuscular Volume 94 fL 80-97 Mean Corpuscular Hemoglobin 32 pg High 27-31 Mean Corpuscular HGB Conc 34 g/dL 31-36 Red Cell Distribution Width 14 % 10.5-15 Platelet Count 206 10^3/uL 150-450 Mean Platelet Volume 8.7 um3 7.4-10.4 Abs Neutrophils 4.1 10^3/uL 1.5-7.7 Abs Lymphocytes 2.1 10^3/uL 1.0-4.8 Abs Monocytes 0.7 10^3/uL 0-0.8 Abs Eosinophils 0.1 10^3/uL 0-0.6 Abs Basophils 0.1 10^3/uL 0-0.2 Abs Nucleated RBC 0 10^3/uL Granulocyte % 58.0 % 38-83 Lymphocyte % 29.9 % 25-47 Monocyte % 9.6 % High 0-7 Eosinophil % 1.3 % 0-6 Basophil % 1.2 % 0-2 Nucleated Red Blood Cells % 0.1 Laboratory test finding 12/05/2017 Lipase 47 U/L 11.0-82.0 C Reactive Protein 1.18 mg/L <8.01 Comp Metabolic Panel 12/05/2017 Sodium 138 mmol/L 135-145 Chloride 102 mmol/L 101-111 Co2 Carbon Dioxide 29 mmol/L 22-32 Glucose 103 mg/dL High 70-100 Blood Urea Nitrogen 24 mg/dL 6-24 Creatinine 0.87 mg/dL 0.51-0.95 BUN/Creatinine Ratio 27.6 High 8-20 Calcium 9.3 mg/dL 8.6-10.3 Total Protein 7.4 g/dL 6.4-8.9 Albumin 4.2 g/dL 3.2-5.2 Globulin 3.2 g/dL 2-4 Albumin/Globulin Ratio 1.3 1-3 Total Bilirubin 0.40 mg/dL 0.2-1.0 Alkaline Phosphatase 80 U/L 34-104 Alt 35 U/L 7-52 Egfr Non- 67.4 >60 Egfr 81.5 >60 2 Potassium 4.3 mmol/L 3.5-5.0 Anion Gap 7 mmol/L 2-11 Ast 27 U/L 13-39 Type & Screen 11/06/2017 Patient Blood Type A Positive Antibody Screen NEGATIVE Urinalysis Profile 11/06/2017 Urine Color Straw Urine Appearance Clear Urine Specific [place] 1.010 1.010-1.030 Urine pH 7.0 5-9 Urine Urobilinogen Negative Negative Urine Ketones Negative Negative Urine Protein Negative Negative Urine Leukocytes Negative Negative Urine Blood 2+ Negative Urine Nitrite Negative Negative Urine Bilirubin Negative Negative Urine Glucose Negative Negative Urine White Blood Cell Absent Absent Urine Red Blood Cell 1+(3-5/hpf) Absent Urine Bacteria Absent Absent Urine Squamous Epithelial Cell Present Absent Laboratory test finding 11/06/2017 Point of Care Glucose 68 mg/dL Low 70- 100 3 CBC Auto Diff 11/06/2017 White Blood Count [...] finding 11/06/2017 Lactic Acid 0.5 mmol/L 0.5-2.0 4 Comp Metabolic Panel 11/06/2017 Sodium 138 mmol/L [...] Egfr Non- 69.2 >60 Egfr 89.0 >60 5 Laboratory test finding 11/06/2017 Magnesium 2.2 mg/dL 1.9-2.7 Troponin-I (TnI) 0.00 ng/mL <0.04 TSH (Thyroid Stim Horm) 1.38 mcIU/mL 0.34-5.60 Lipid Profile (Trig/Chol/HDL) 11/06/2017 Triglycerides 155 mg/dL 6 Cholesterol 218 mg/dL 7 HDL Cholesterol 47.2 mg/dL 8 LDL Cholesterol 140 mg/dL 9 Urinalysis Profile 08/09/2017 Urine Color Colorless Urine Appearance Clear Urine Specific [place] 1.004 Low 1.010-1.030 Urine pH 6.0 5-9 [...] And 08/09/2017 Urine Culture SEE RESULT BELOW 10 Sensitivities CBC Auto Diff 08/09/2017 White Blood [...] Egfr Non- 74.2 >60 Egfr 95.4 >60 11 Laboratory test finding 08/09/2017 Lipase 23 U/L [...] finding 05/20/2017 Rapid Strep Molecular Negative Negative 12 Basic Metabolic Panel 03/12/2017 Sodium 139 mmol/L 133-145 Potassium 4.0 mmol/L 3.5-5.0 Chloride 105 mmol/L 101-111 Co2 Carbon Dioxide 29 mmol/L 22-32 Anion Gap 5 mmol/L 2-11 Glucose 93 mg/dL 70-100 Blood Urea Nitrogen 18 mg/dL 6-24 Creatinine 0.76 mg/dL 0.51-0.95 BUN/Creatinine Ratio 23.7 High 8-20 Calcium 8.9 mg/dL 8.6-10.3 Egfr Non- 78.7 >60 Egfr 101.2 >60 13 Laboratory test finding 03/12/2017 Magnesium 2.2 mg/dL 1.9-2.7 Lipid Profile (Trig/Chol/HDL) 03/12/2017 Triglycerides 121 mg/dL 14 Cholesterol 194 mg/dL 15 HDL Cholesterol 47.1 mg/dL 16 LDL Cholesterol 123 mg/dL 17 CBC Auto Diff 10/06/2016 White Blood Count [...] finding 10/06/2016 Lactic Acid 0.5 mmol/L 0.5-2.0 18 Comp Metabolic Panel 10/06/2016 Sodium 138 mmol/L [...] Egfr Non- 71.4 >60 Egfr 91.8 >60 19 Laboratory test finding 10/06/2016 Magnesium 2.2 mg/dL 1.9-2.7 Troponin-I (TnI) 0.00 ng/mL <0.04 20 TSH (Thyroid Stim Horm) 1.63 mcIU/mL 0.34-5.60 Lipid Profile (Trig/Chol/HDL) 10/03/2016 Triglycerides 107 mg/dL 21 Cholesterol 248 mg/dL 22 HDL Cholesterol 52.8 mg/dL 23 LDL Cholesterol 174 mg/dL 24 Comp Metabolic Panel 02/18/2016 Sodium 139 mmol/L 133-145 25 Potassium 3.6 mmol/L 3.5-5.0 25 Chloride 102 mmol/L 101-111 25 Co2 Carbon Dioxide 32 mmol/L 22-32 25 Anion Gap 5 mmol/L 2-11 25 Glucose 73 mg/dL 70-100 25 Blood Urea Nitrogen 15 mg/dL 6-24 25 Creatinine 0.77 mg/dL 0.51-0.95 25 BUN/Creatinine Ratio 19.5 8-20 25 Calcium 9.5 mg/dL 8.6-10.3 25 Total Protein 7.4 g/dL 6.4-8.9 25 Albumin 4.5 g/dL 3.2-5.2 25 Globulin 2.9 g/dL 2-4 25 Albumin/Globulin Ratio 1.6 1-3 25 Total Bilirubin 0.40 mg/dL 0.2-1.0 25 Alkaline Phosphatase 74 U/L 34-104 25 Alt 13 U/L 7-52 25 Ast 18 U/L 13-39 25 Egfr Non- 78.1 >60 25 Egfr 100.5 >60 25, 26 Laboratory test finding 02/18/2016 Uric Acid 4.1 mg/dL 2.3-6.6 25, 27 CBC Auto Diff 02/18/2016 White Blood Count 4.3 10^3/uL 3.5-10.8 25 Red Blood Count 4.48 10^6/uL 4.0-5.4 25 Hemoglobin 14.1 g/dL 12.0-16.0 25 Hematocrit 41 % 35-47 25 Mean Corpuscular Volume 92 fL 80-97 25 Mean Corpuscular Hemoglobin 31 pg 27-31 25 Mean Corpuscular HGB Conc 34 g/dL 31-36 25 Red Cell Distribution Width 14 % 10.5-15 25 Platelet Count 192 10^3/uL 150-450 25 Mean Platelet Volume 11 um3 High 7.4-10.4 25 Abs Neutrophils 2.1 10^3/uL 1.5-7.7 25 Abs Lymphocytes 1.7 10^3/uL 1.0-4.8 25 Abs Monocytes 0.3 10^3/uL 0-0.8 25 Abs Eosinophils 0.1 10^3/uL 0-0.6 25 Abs Basophils 0 10^3/uL 0-0.2 25 Abs Nucleated RBC 0.01 10^3/uL 25 Granulocyte % 48.0 % 38-83 25 Lymphocyte % 39.7 % 25-47 25 Monocyte % 8.1 % 1-9 25 Eosinophil % 3.3 % 0-6 25 Basophil % 0.9 % 0-2 25 Nucleated Red Blood Cells % 0.1 25 Laboratory test finding 02/18/2016 Erythrocyte Sed Rate 39 mm/Hr High 0- 30 25, 28 Lyme Disease Serology Negative Negative 25, 29 Factor 8 Profile 01/19/2016 Coagulation Factor VIII Activi 98 % 55 - 200 von Willebrand Factor Antigen 82 % 55 - 200 VonWillibrand Factor Activity 81 % 55 - 200 von Willebrand Panel Interp See Comment 30 Laboratory test finding 01/19/2016 Haptoglobin 134 mg/dL 30 - 200 31 Laboratory test finding 01/19/2016 LDH 192 U/L [...] 01/17/2016 Hepatitis B Dna Undetected IU/mL Undetected 32 finding Quantitative Hepatitis Be Antigen Negative Negative 33 Laboratory test finding 01/13/2016 Hepatitis B Surface Ag Nonreactive Nonreactive Hepatitis B Core AB Igm Nonreactive Nonreactive Hepatitis B Core AB Total Positive Negative 34 Hepatitis B Brittany AB Titer 01/01/2016 Hepatitis B Surface AB Reactive Nonreactive 35 Hep B Surf AB Level > 1000.00 mIU/mL <12 35, 36 Urine Culture And 01/01/2016 Urine Culture SEE RESULT 37, 38 Sensitivities BELOW CBC Auto Diff 12/07/2015 White [...] Color Straw Urine Appearance Clear Urine Specific [place] 1.012 1.010-1.030 Urine pH 6.0 5-9 Urine [...] finding 12/07/2015 Lactic Acid 1.6 mmol/L 0.5-2.0 39 Troponin-I (TnI) 0.00 ng/mL <0.03 40 CKMB 12/07/2015 CKMB ng/mL 2.3 ng/mL 0.6-6.3 [...] Egfr Non- 84.4 >60 Egfr 108.6 >60 41 Laboratory test finding 12/07/2015 Lipase 34 U/L [...] Egfr Non- 78.1 >60 Egfr 100.5 >60 42 Laboratory test finding 09/28/2015 TSH (Thyroid Stim 1.25 ?IU/mL 0.34- 5.60 Horm) Vitamin B12 And Folate 09/28/2015 Vitamin B12 375 pg/mL 180-914 43 Serum Folic Acid (Folate) 11.27 ng/mL >3.99 Laboratory test 04/14/2015 Cytology Non-[employer] SEE RESULT BELOW 44 finding Laboratory test 04/08/2015 Rapid Group A [...] Egfr Non- 77.3 >60 Egfr 99.4 >60 45 Laboratory test finding 12/23/2014 Lipase 20 U/L 11.0-82.0 C Reactive Protein 22.43 mg/L High < 5.00 46 HCG Qualitative Negative Negative Urinalysis Profile 12/23/2014 Urine Color Colorless Urine Appearance Clear Urine Specific [place] 1.017 1.010-1.030 Urine pH 6.0 5-9 Urine [...] 12/23/2014 Urine Culture And SEE RESULT BELOW 47 Sensitivities Laboratory test finding 12/23/2014 Throat Beta Strep Culture SEE RESULT BELOW 48 Urinalysis Profile 09/14/2014 Urine Color Straw Urine Appearance Clear Urine Specific [place] 1.011 1.010-1.030 Urine pH 7.0 5-9 Urine [...] Culture And 09/14/2014 Urine Culture (SEE NOTE) 49 Sensitivities CBC Auto Diff 09/14/2014 White Blood [...] Dimer Quantitative 219 ng/mL Less Than 230 50 Lactic Acid 0.7 mmol/L 0.5-2.2 B Type Natriuretic Peptide 44 pg/mL 51 Comp Metabolic Panel 09/14/2014 Sodium 138 mmol/L [...] Egfr Non- 76.1 >60 Egfr 97.9 >60 52 Laboratory test finding 09/14/2014 Magnesium 2.1 mg/dL 1.9-2.7 Lipase 27 U/L 11.0-82.0 Troponin I 0.00 ng/mL <0.03 53 TSH (Thyroid Stimulating Horm) 0.93 IU/mL 0.34-5.60 C Reactive Protein 2.46 mg/L < 5.00 54 CBC Auto Diff 09/12/2014 White Blood Count [...] Egfr Non- 68.1 >60 Egfr 87.6 >60 55 Laboratory test finding 09/12/2014 Lipase 19 U/L 11.0-82.0 C Reactive Protein 4.85 mg/L < 5.00 56 H Pylori Iga 09/08/2014 Helicobacter pylori IgA Ab Negative Negative H pylori IgA Ab Index 1.93 57 H.Pylori Igg AB 09/08/2014 Helicobacter pylori IgG Ab Negative Negative H pylori IgG AB Index 2.19 58 H.Pylori Igm AB 09/08/2014 Helicobacter pylori IgM Ab Negative Negative H pylori IgM AB Index 23.90 59 Laboratory test finding 08/21/2014 C. difficile Amplified Dna (SEE NOTE) 60 Entamoeba histolytica Antigen NOT DETECTED 61 E.coli O157:H7 Culture (SEE NOTE) 62 O&P Ova & Parasites Full 08/21/2014 Ova Parasite Concen (SEE NOTE) 63 Full Laboratory test finding 08/21/2014 Stool Culture (SEE NOTE) 64 CBC Auto Diff 08/14/2014 White Blood Count [...] 08/14/2014 Activated Partial 35.1 seconds 26.0- 36.3 65 Thrombo Time Comp Metabolic Panel 08/14/2014 Sodium [...] Egfr Non- 82.1 >60 Egfr 105.6 >60 66 Laboratory test finding 08/14/2014 TSH (Thyroid Stimulating 2.37 IU/mL 0.34-5.60 Horm) Laboratory test finding 06/24/2014 Blood Urea Nitrogen 15 mg/dL 6-24 Creatinine 06/24/2014 Creatinine 0.79 mg/dL 0.51-0.95 Egfr Non- 76.1 >60 Egfr 97.9 >60 67 Lipid Profile (Trig/Chol/HDL) 02/06/2014 Triglycerides 181 mg/dL 68, 69 Cholesterol 192 mg/dL 68, 70 HDL Cholesterol 52.3 mg/dL 68, 71 LDL Cholesterol 104 mg/dL 68, 72 Comp Metabolic Panel 02/06/2014 Sodium 138 mmol/L 133-145 68 Potassium 3.9 mmol/L 3.7-5.6 68 Chloride 102 mmol/L 101-111 68 Co2 Carbon Dioxide 31 mmol/L 22-32 68 Anion Gap 5 mmol/L 2-11 68 Glucose 83 mg/dL 70-100 68 Blood Urea Nitrogen 14 mg/dL 6-24 68 Creatinine 0.70 mg/dL 0.51-0.95 68 BUN/Creatinine Ratio 20.0 8-20 68 Calcium 9.0 mg/dL 8.6-10.3 68 Total Protein 6.8 g/dL 6.4-8.9 68 Albumin 4.1 g/dL 3.2-5.2 68 Globulin 2.7 g/dL 2-4 68 Albumin/Globulin Ratio 1.5 1-3 68 Total Bilirubin 0.50 mg/dL 0.2-1.0 68 Alkaline Phosphatase 63 U/L 34-104 68 Alt 19 U/L 7-52 68 Ast 18 U/L 13-39 68 Egfr Non- 87.9 >60 68 Egfr 113.0 >60 68, 73 Laboratory test 10/31/2013 Cytology RUN DATE: finding <SEE NOTE> HPV High Risk 10/31/2013 Human Papillomavirus See Comment 75 Source HPV High Risk Type 16, PCR Positive Negative HPV High Risk Type 18, PCR Negative Negative HPV Other Risk types Negative Negative 76 Laboratory test finding 09/30/2013 Vitamin B12 290 pg/mL 180-914 77 Ua Routine 09/12/2013 Ua Specific [place] 1.020 Ua PH 5 Ua Color yellow [...] Egfr Non- 79.9 >60 Egfr 102.8 >60 78 Manual Differential 09/06/2013 Neutrophil % 43 % 38-83 Band % 1 % 0-8 Lymphocytes % 42 % 25-47 Monocytes % 5 % 0-13 Eosinophils % 5 % 0-6 Basophil % 2 % 0-2 Reactive Lymph % 2 % 0-6 RBC Morphology Normal Normal Urinalysis 09/06/2013 Urine Color Yellow Urine Appearance Clear Urine Specific [place] 1.021 1.010-1.030 Urine Esterase 1+ Negative Urine [...] And Sensitivities 09/06/2013 Urine Culture (SEE NOTE) 79 Iron & Iron Binding Capacity 07/01/2013 Iron 95 g/dL 50-212 Unsaturated Iron Binding 349 g/dL Total Iron Binding Capacity 444 g/dL 250-450 % Iron Saturation 21 % 15-55 Laboratory test finding 07/01/2013 Ferritin 14.2 ng/mL 11-307 80 CBC Auto Diff 07/01/2013 White Blood Count [...] finding 07/01/2013 Vitamin B12 378 pg/mL 180-914 81 Vitamin D, 25 Hydroxy 07/01/2013 25-Hydroxy Vitamin D2 <4.0 ng/mL 25-Hydroxy Vitamin D3 27 ng/mL 25-Hydroxy Vitamin D Total 27 ng/mL 82 Lipid Profile (Trig/Chol/HDL) 07/01/2013 Triglycerides 57 mg/dL 83 Cholesterol 223 mg/dL 84 HDL Cholesterol 66.9 mg/dL 85 LDL Cholesterol 145 mg/dL 86 Laboratory test finding 07/01/2013 Glucose 83 mg/dL 70-100 87 TSH (Thyroid Stimulating Horm) 1.61 IU/mL 0.34-5.60 88 Urinalysis 03/21/2013 Urine Color Yellow Urine Appearance Clear Urine Specific [place] 1.024 1.010-1.030 Urine Esterase 2+ Negative Urine Nitrate Negative Negative Urine Urobilinogen Negative E.U./dL Negative Urine Protein Negative mg/dL Negative Urine pH 5.5 5-9 Urine Blood 2+ Negative Urine Ketones Negative mg/dL Negative Urine Bilirubin Negative Negative Urine Glucose Negative mg/dL Negative Urine Microscopic 03/21/2013 Urine WBC 2+ (>10-30 /hpf) None Seen 89 Urine RBC 1+ (<3 /hpf) None Seen Urine Mucus Present /lpf Absent Bacteria Urine 1+ None Seen Urine Culture And Sensitivities 03/21/2013 Urine Culture (SEE NOTE) 90 Urinalysis W/Microscopic 03/10/2013 Urine Color (SEE NOTE) 91 Urine WBC 2+ (>10-30 /hpf) None Seen 92 Urine RBC 1+ (<3 /hpf) None Seen Urine Epithelial Cells 2+ Squamous /hpf None Seen Bacteria Urine 1+ None Seen Laboratory test finding 09/18/2012 Glucose 84 mg/dL 70-100 93 Lipid Profile (Trig/Chol/HDL) 09/18/2012 Triglycerides 109 mg/dL 40-200 Cholesterol 234 mg/dL High Less than 200 HDL Cholesterol 52 mg/dL 40-60 94 Cholesterol/HDL Ratio 4.5 Average High 1-4.44 LDL Cholesterol 160.2 mg/dL High Less Than 100 95 Laboratory test finding 08/30/2012 TSH (Thyroid Stimulating 0.84 miu/mL 0.34-5.60 Horm) Follicle Stimulating Hormone 23.84 miu/mL 96 CBC Auto Diff 08/30/2012 White Blood Count [...] % 0 Ua Routine 01/31/2012 Ua Specific [place] 1.015 Ua PH 5 Ua Color yellow Ua Appera clear Ua WBC neg Ua Protein neg Ua Glucose neg Ua Ketones neg Ua Bilirubin neg Ua Urobilinogen neg Ua Nitrite neg Ua Occult Blood small Vitamin D, 25 Hydroxy 01/31/2012 25-Hydroxy Vitamin D2 <4.0 ng/mL () 25-Hydroxy Vitamin D3 27 ng/mL () 25-Hydroxy Vitamin D Total 27 ng/mL () 97 CBC With Manual Diff 01/31/2012 White Blood [...] Morphology NORMAL Protime 01/31/2012 Inr 0.89 0.88-1.13 98 Protime 10.6 SEC 10.3-13.5 99 Laboratory test finding 01/31/2012 PTT (Aptt) 28.1 SEC 25.1-38.5 Basic Metabolic Panel 01/31/2012 Sodium 138 mmol/L 135-145 Potassium 3.8 mmol/L 3.5-5.0 Chloride 103 mmol/L 101-111 Co2 (Carbon Dioxide) 30.0 mmol/L 22-32 Anion Gap 5.0 mmol/L 2-11 100 Glucose 77 mg/dL 70-100 BUN 15 mg/dL 6-24 Creatinine 0.6 mg/dL 0.50-1.40 One Over Creatinine 1.66 BUN/Creatinine Ratio 25.0 High 8-20 Calcium 9.1 mg/dL 8.1-9.9 eGFR Non- 105.8 > 60 eGFR 136.1 > 60 101 Laboratory test finding 01/31/2012 BHCG Quantitative < 2.1 MIU/ML 0-5 102 Laboratory test finding 07/05/2011 TSH 1.53 MIU/ML [...] Hepatitis B Core AB, Total Positive Negative 103 Hepatitis Be Antibodies Positive Negative 104 Iron & Iron Binding Capacity 04/18/2011 Iron Total 69 g/dL 28-170 Unsaturated Iron Binding 452 g/dL Total Iron Binding Capacity 521 g/dL High 250-450 % Iron Saturation 13 % Low 15-55 Laboratory test finding 04/18/2011 Ferritin < 10 NG/ML Low 11.0-307 Comp Metabolic Panel 04/18/2011 Sodium 141 mmol/L 135-145 Potassium 4.4 mmol/L 3.5-5.0 Chloride 103 mmol/L 101-111 Co2 (Carbon Dioxide) 31.0 mmol/L 22-32 Anion Gap 7.0 mmol/L 2-11 105 Glucose 93 mg/dL 70-100 BUN 12 mg/dL 6-24 Creatinine 0.8 mg/dL 0.50-1.40 One Over Creatinine 1.25 BUN/Creatinine Ratio 15.0 8-20 Calcium 9.4 mg/dL 8.1-9.9 Total Protein 6.9 GM/DL 6.2-8.1 Albumin 4.0 GM/DL 3.6-5.4 Globulin 2.9 GM/DL 2-4 Albumin/Globulin Ratio 1.4 1-3 Bilirubin Total 0.7 mg/dL 0.4-1.5 106 Alkaline Phosphatase 62 U/L 30-110 Alt (SGPT) 22 U/L 14-54 Ast (Sgot) 21 U/L 12-42 eGFR Non- 75.9 > 60 eGFR 97.6 > 60 107 Lipid Profile (Trig/Chol/HDL) 04/18/2011 Triglyceride 122 mg/dL 40-200 Cholesterol 240 mg/dL High Less Than 200 108 High Density Lipoprotein 65 mg/dL High 40-60 109 Cholesterol/HDL Ratio 3.69 AVERAGE 1-4.44 Low Density Lipoprotein 151 mg/dL High Less Than 100 110 Laboratory test finding 04/18/2011 CPK (Creatine Kinase) 108 U/L 0-170 Hepatitis B Surface AB 04/18/2011 Hepatitis B Surface AB Reactive Nonreactive Hbsab Index > 100.00 111 Laboratory test finding 03/29/2011 Ferritin < 10 [...] 25-Hydroxy Vitamin D Total 25 ng/mL () 112 1 SEE RESULT BELOW Name: KEENA COATES : [address]: Estrellita Newton MD Acct: [id number] Unit: [id number] AGE: 57 Location: ED Re12/05/17 SEX: F Status: DEP ER SPEC: [id number] HASEEB: 12/05/[address]: Davina TSAI REQ: [id number] RECD: 12/05/17 STATUS: CELIA ERNANDEZ DR: [facility] Lui Samson MD _ SOURCE: URINE SPDESC: ORDERED: Urine Culture Procedure Result Reported Site Urine Culture Final 12/07/17- 832 ML No growth of clinically significant organisms * ML - Main Lab . END OF REPORT DEPARTMENT OF PATHOLOGY, [address] [place] [address] Wayne Duff M.D. Director [facility] # [id number] 2 Because ethnic data is not always [...] 5 Kidney failure <15 (or dialysis) 3 Child Welfare Counselor: [id number] [facility] Severe Sepsis and Septic Shock Management Bundle Measure requires all lactic acids initially measuring >2.0 mmol/L be repeated. 5 Because ethnic data is not always readily [...] 15-29 5 Kidney failure <15 (or dialysis) 6 Desirable: <150 Borderline High: 150-199 High: 200-499 Very High: >500 7 Desirable: <200 Borderline High: 200-239 High: >239 8 Low: <40 Desirable: 40-60 High: >60 9 Desirable: <100 Near Optimal: 100-129 Borderline High: 130-159 High: 160-189 Very High: >189 10 SEE RESULT BELOW Name: KEENA COATES : [address]: Maco Nettles MD Acct: [id number] Unit: [id number] AGE: 57 Location: ED Re08/09/17 SEX: F Status: DEP ER SPEC: [id number] HASEEB: 08/09/17 [facility] DR: Maco Nettles MD REQ: [id number] RECD: 08/09/17 STATUS: COMP AWAIS DR: Lui Samson MD _ SOURCE: URINE SPDESC: ORDERED: Urine Culture Procedure Result Reported Site Urine Culture Final 08/11/17- 0854 ML No Growth (<1,000 CFU/mL) * ML - Main Lab . END OF REPORT DEPARTMENT OF PATHOLOGY, [address] [place] [address] Wayne Duff M.D. Director [facility] # [id number] 11 Because ethnic data is not always [...] 5 Kidney failure <15 (or dialysis) 12 Child Welfare Counselor: [id number] 13 Because ethnic data is not always readily [...] 15-29 5 Kidney failure <15 (or dialysis) 14 Desirable: <150 Borderline High: 150-199 High: 200-499 Very High: >500 15 Desirable: <200 Borderline High: 200-239 High: >239 16 Low: <40 Desirable: 40-60 High: >60 17 Desirable: <100 Near Optimal: 100-129 Borderline High: 130-159 High: 160-189 Very High: >189 18 [place] Severe Sepsis and Septic Shock Management Bundle Measure requires all lactic acids initially measuring >2.0 mmol/L be repeated. 19 Because ethnic data is not always readily [...] 15-29 5 Kidney failure <15 (or dialysis) 20 99th percentile=0.04 ng/mL Troponin results at [facility] and [facility] are not interchangeable. 21 Desirable <150 Borderline high 150-199 High 200-499 Very High >500 22 Desirable <200 Borderline high 200-239 High >239 23 Low <40 Desirable: 40-60 High: >60 24 Desirable: <100 mg/dL Near Optimal: 100-129 mg/dL Borderline High: 130-159 mg/dL High: 160-189 mg/dL Very High: >189 mg/dL 25 [id number] 26 Because ethnic data is not always readily [...] 15-29 5 Kidney failure <15 (or dialysis) 27 [id number] 29 Serologic response to B. burgdorferi infection is not detected, but cannot rule out early infection during which low or undetectable antibody levels to B. burgdorferi may be present. If clinically indicated, a new serum specimen should be submitted in 7-14 days. Lipemic Test Performed by: [place] [address] Supply Technician: Quan Fishman II, M.D., Ph.D. 30 No laboratory evidence of von Willebrand's disease [...] not reviewed by physician. Test Performed by: [place] [address] Supply Technician: Quan Fishman II, M.D., Ph.D. 31 Test Performed by: [place] [address] Supply Technician: Quan Fishman II, M.D., Ph.D. 32 Result in log IU/mL is Undetected The quantification range of this assay is 20 IU/mL to 170,000,000 IU/mL (1.30 log IU/mL to 8.23 log IU/mL). Testing was performed by the CAROL AmpliPrep/CAROL TaqMan HBV test, version 2.0 ([employer] Test Performed by: [place] [address] Supply Technician: Quan Fishman II, M.D., Ph.D. 33 Test Performed by: [place] [address] Supply Technician: Quan Fishman II, M.D., Ph.D. 34 If clinically indicated, testing for Hepatitis B Core IgM antibody is necessary to differentiate between acute and past HBV infection. Test Performed by: [place] [address] Supply Technician: Quan Fishman II, M.D., Ph.D. 35 [id number] 36 This assay does not differentiate between reactivity due to a vaccine-induced immune response or an immune response induced by infection with HBV. 37 [id number] 38 SEE RESULT BELOW Name: KEENA COATES : [address]: Kevin Boyd MD Acct: [id number] Unit: [id number] AGE: 55 Location: [facility] Re01/01/16 SEX: F Status: DEP ER SPEC: [id number] HASEEB: 01/01/16-1749 [facility] [address]: Sara Palacio NP REQ: [id number] RECD: 01/02/16-1307 STATUS: CELIA ERNANDEZ DR: [facility] Lui Samson MD _ SOURCE: URINE SPDESC: ORDERED: Urine Culture COMMENTS: [id number] Procedure Result Reported Site Urine Culture Final 01/03/16- 1457 ML No Growth (<1,000 CFU/mL) * ML - MAIN LAB ([facility]) . END OF REPORT * ML=Testing performed at Main Lab DEPARTMENT OF PATHOLOGY, [address] [place] [address] Wayne Duff M.D. Director [facility] # [id number] 39 [facility] Severe Sepsis and Septic Shock Management Bundle Measure requires all lactic acids initially measuring >2.0 mmol/L be repeated. 40 Reference Range and Interpretation: TnI (ng/mL) Interpretation Less Than 0.03 ng/mL Not supportive of diagnosis of LA 0.03 - 0.50 ng/mL Indeterminate: suggest serial studies if clinically indicated. Greater than 0.5 ng/mL Consistent with diagnosis of LA 41 Because ethnic data is not always [...] 5 Kidney failure <15 (or dialysis) 42 Because ethnic data is not always readily [...] 15-29 5 Kidney failure <15 (or dialysis) 43 Normal Range 180 to 914 Indeterminate Range 145 to 180 Deficient Range <145 44 SEE RESULT BELOW Name: KEENA COATES : [address]: Dwight Brown MD Acct: [id number] Unit: [id number] AGE: 55 Location: LAB Re04/14/15 SEX: F Status: REG REF SPEC: [id number] HASEEB: 04/14/15-[address]: Dwight Brown MD REQ: [id number] RECD: 04/14/15 STATUS: SULTANA ERNANDEZ DR: Alcides Brody MD _ ORDERED: THIN PREP NON G FINAL DIAGNOSIS Urine, voided: Negative for malignant cells. URINE VOID CLINICAL HISTORY Gross hematuria GROSS DESCRIPTION 5 mls of cloudy peach colored urine. Signed (signature on file) Wayne Duff MD 1347 END OF REPORT * ML=Testing performed at Main Lab DEPARTMENT OF PATHOLOGY, [address] [place] [address] Wayne Duff M.D. Director [facility] # [id number] 45 Because ethnic data is not always readily [...] 15-29 5 Kidney failure <15 (or dialysis) 46 Acute inflammation: >10.00 47 SEE RESULT BELOW Name: KEENA COATES : [address]: Eusebio Matute MD Acct: [id number] Unit: [id number] AGE: 54 Location: ED Re12/23/14 SEX: F Status: DEP ER SPEC: [id number] HASEEB: 12/24/14 [facility] [address]: Gene Godoy DO REQ: [id number] RECD: 12/24/14 STATUS: CELIA ERNANDEZ DR: Alcides Brody MD _ SOURCE: URINE SPDESC: ORDERED: Urine Culture Procedure Result Verified Site Urine Culture Final 12/26/14- 1034 ML Organism 1 NORMAL CHAVEZ [place] Count 25-50,000 (Moderate) CFU/ML * ML - MAIN LAB ([facility]) . END OF REPORT * ML=Testing performed at Main Lab DEPARTMENT OF PATHOLOGY, [address] [place] [address] Wayne Duff M.D. Director [facility] # [id number] 48 SEE RESULT BELOW Name: KEENA COATES Deanne : [address]: Eusebio Garcia MD Acct: [id number] Unit: [id number] AGE: 54 Location: [facility] Re12/23/14 SEX: F Status: DEP ER SPEC: [id number] HASEEB: 12/23/14-2034 [facility] [address]: Eusebio Garcia MD REQ: [id number] RECD: 12/24/14 STATUS: CLEIA ERNANDEZ DR: [facility] Alcides Brody MD _ SOURCE: THROAT SPDESC: ORDERED: Throat Beta Str Procedure Result Verified Site Throat Beta Strep Culture Final 12/26/14- 0850 ML Negative For Group A Beta Streptococcus * ML - MAIN LAB ([facility]) . END OF REPORT * ML=Testing performed at Main Lab DEPARTMENT OF PATHOLOGY, [facility] [employer] [place], [place] [address] Wayne Duff M.D. Director [facility] # [id number] 49 RUN DATE: 09/16/14 [facility] LAB LIVE PAGE 1 RUN TIME: [address] [place] [address] Specimen Inquiry Name: KEENA COATES : [address]: Quan Guerrero MD Acct: [id number] Unit: [id number] AGE: 54 Location: ED Re09/14/14 SEX: F Status: DEP ER SPEC: [id number] HASEEB: 09/14/14-[address]: Quan Guerrero MD REQ: [id number] RECD: 09/14/14 STATUS: COMP AWAIS DR: Alcides Brody MD _ SOURCE: URINE SPDESC: ORDERED: Urine Culture Procedure Result Verified Site Urine Culture Final 09/16/14- 08 ML Organism 1 NORMAL CHAVEZ [place] Count 10-25,000 (Moderate) CFU/ML * ML - MAIN LAB ([facility]) . END OF REPORT * ML=Testing performed at Main Lab DEPARTMENT OF PATHOLOGY, [address] [place] [address] Wayne Duff M.D. Director [facility] # [id number] 50 Please note: The following may produce a false positive D Dimer test: - Rheumatoid factor greater than 60 IU/ml - Plasma hemoglobin greater than 0.05 gm/dl - Bilirubin greater than 50 mg/dl - Lipids greater than 1000 mg/dl - FDP greater than 20 ug/ml 51 >100 to <200 pg/mL: likely compensated congestive heart failure (CHF) 200 to 400 pg/mL: likely moderate CHF >400 pg/mL: likely moderate to severe CHF [place] [facility] 52 Because ethnic data is not always readily [...] 15-29 5 Kidney failure <15 (or dialysis) 53 Reference Range and Interpretation: TnI (ng/mL) Interpretation Less Than 0.03 ng/mL Not supportive of diagnosis of LA 0.03 - 0.50 ng/mL Indeterminate: suggest serial studies if clinically indicated. Greater than 0.5 ng/mL Consistent with diagnosis of LA 54 Acute inflammation: >10.00 55 Because ethnic data is not always [...] 5 Kidney failure <15 (or dialysis) 56 Acute inflammation: >10.00 57 Results with Index Values of <18.00 are negative. Test Performed by: [place] [address] Supply Technician: Quan Fishman II, M.D., Ph.D. 58 Results with Index Values of <8.95 are negative. Test Performed by: [place] [address] Supply Technician: Quan Fishman II, M.D., Ph.D. 59 Results with Index Values of <36.00 are negative. Test Performed by: [place] [address] Supply Technician: Quan Fishman II, M.D., Ph.D. 60 RUN DATE: 08/21/14 [facility] LAB LIVE PAGE 1 RUN TIME: [address] [place] [address] Specimen Inquiry Name: KEENA COATES Deanne : [address]: Alcides Brody MD Acct: [id number] Unit: [id number] AGE: 54 Location: [facility] Re/03/15 SEX: F Status: REG REF SPEC: [id number] HASEEB: 08/21/[address] [facility] [address]: Alcides Brody MD REQ: [id number] RECD: 08/21/14 STATUS: RES _ [facility] ORDERED: E.coli O157:H7, Stool Culture, C. diff Amp DNA, O P (Full) QUERIES: Provider Requisition # [id number] Procedure Result Verified Site E.coli O157:H7 Culture [...] performed at Main Lab DEPARTMENT OF PATHOLOGY, [facility] [address] [place], [place] [address] Wayne Duff M.D. Director [facility] # [id number] RUN DATE: 08/21/14 [facility] LAB LIVE PAGE 2 RUN TIME: 1440 [facility] [employer] [place], [place] [address] Specimen Inquiry Patient: KEENA COATES [id number] (Continued) Specimen: [id number] Collected: 08/21/14-1029 Received: 08/21/14-1056 (Continued) Procedure Result [...] Full PENDING * ML - MAIN LAB ([facility]) . END OF REPORT * ML=Testing performed at Main Lab DEPARTMENT OF PATHOLOGY, [facility] [address] [place], [place] [address] Wayne Duff M.D. Director [facility] # [id number] 61 REFERENCE RANGE: NOT DETECTED The Entamoeba histolytica antigen EIA test detects only the antigen of the pathogenic E. histolytica; the non-pathogenic E. dispar is not detected. Test Performed by: [employer] [address] [facility] [place] [address] 62 RUN DATE: 08/23/14 [facility] LAB LIVE PAGE 1 RUN TIME: [address] [place] [address] Specimen Inquiry Name: KEENA COATES : [address]: Alcides Brody MD Acct: [id number] Unit: [id number] AGE: 54 Location: [facility] Re08/21/14 SEX: F Status: REG REF SPEC: [id number] HASEEB: 08/21/14-[address]: Alcides Brody MD REQ: [id number] RECD: 08/21/14 STATUS: RES _ SOURCE: STOOL SPDESC: ORDERED: E.coli O157:H7, Stool Culture, C. diff Amp DNA, O P (Full) QUERIES: Provider Requisition # [id number] Procedure Result Verified Site E.coli O157:H7 Culture [...] performed at Main Lab DEPARTMENT OF PATHOLOGY, [facility] [place] [address] Wayne Duff M.D. Director [facility] # [id number] RUN DATE: 08/23/14 [facility] LAB LIVE PAGE 2 RUN TIME: [address] [place] [address] Specimen Inquiry Patient: KEENA COATES [id number] (Continued) Specimen: [id number] Collected: 08/21/14-1029 Received: 08/21/14-1056 (Continued) Procedure Result [...] Full PENDING * ML - MAIN LAB ([facility]) . END OF REPORT * ML=Testing performed at Main Lab DEPARTMENT OF PATHOLOGY, [address] [place] [address] Wayne Duff M.D. Director [facility] # [id number] 63 RUN DATE: 08/25/14 [facility] LAB LIVE PAGE 1 RUN TIME: [address] [place] [address] Specimen Inquiry Name: KEENA COATES : [address]: Alcides Brody MD Acct: [id number] Unit: [id number] AGE: 54 Location: [facility] Re08/21/14 SEX: F Status: REG REF SPEC: [id number] HASEEB: 08/21/14-1030 [facility] [address]: Alcides Brody MD REQ: [id number] RECD: 08/21/14-1056 STATUS: COMP _ SOURCE: STOOL SPDESC: ORDERED: E.coli O157:H7, Stool Culture, C. diff Amp DNA, O P (Full) QUERIES: Provider Requisition # [id number] Procedure Result Verified Site E.coli O157:H7 Culture [...] performed at Main Lab DEPARTMENT OF PATHOLOGY, [facility] [place] [address] Wyane Duff M.D. Director [facility] # [id number] RUN DATE: 08/25/14 [facility] LAB LIVE PAGE 2 RUN TIME: 1604 [facility] [address] [place], [place] [address] Specimen Inquiry Patient: KEENA COATES [id number] (Continued) Specimen: [id number] Collected: 08/21/14 Received: 08/21/14 (Continued) Procedure Result [...] performed at Main Lab DEPARTMENT OF PATHOLOGY, [facility] [place] [address] Wayne Duff M.D. Director [facility] # [id number] RUN DATE: 08/25/14 [facility] LAB LIVE PAGE 3 RUN TIME: 1608 [facility] [address] [place], [place] [address] Specimen Inquiry Patient: LILIAKEENA [id number] (Continued) Specimen: [id number] Collected: 08/21/14-1029 Received: 08/21/14-1056 (Continued) Procedure Result Verified Site Ova Parasite Concen Full Final (continued) 08/25/14- 1607 Final Result No Ova Parasites seen by Ethyl Acetate Concentration No Cysts or Trophs Seen on Trichrome smear * ML - MAIN LAB ([facility]) . END OF REPORT * ML=Testing performed at Main Lab DEPARTMENT OF PATHOLOGY, [facility] [place] [address] Wayne Duff M.D. Director [facility] # [id number] 64 RUN DATE: 08/24/14 [facility] LAB LIVE PAGE 1 RUN TIME: 1112 [facility] [address] [place], [place] [address] Specimen Inquiry Name: KEENA COATES : [address]: Alcides Brody MD Acct: [id number] Unit: [id number] AGE: 54 Location: [facility] Re08/21/14 SEX: F Status: REG REF SPEC: [id number] HASEEB: 08/21/14-[address]: Alcides Brody MD REQ: [id number] RECD: 08/21/14 STATUS: RES _ SOURCE: STOOL SPDESC: ORDERED: E.coli O157:H7, Stool Culture, C. diff Amp DNA, O P (Full) QUERIES: Provider Requisition # [id number] Procedure Result Verified Site E.coli O157:H7 Culture [...] performed at Main Lab DEPARTMENT OF PATHOLOGY, [facility] [place] [id number] Wayne Duff M.D. Director [facility] # [id number] RUN DATE: 08/24/14 [facility] LAB LIVE PAGE 2 RUN TIME: 111 [facility] [address] [place], [place] [address] Specimen Inquiry Patient: KEENA COATES [id number] (Continued) Specimen: [id number] Collected: 08/21/14-1029 Received: 08/21/14-1056 (Continued) Procedure Result [...] Full PENDING * ML - MAIN LAB ([facility]) . END OF REPORT * ML=Testing performed at Main Lab DEPARTMENT OF PATHOLOGY, [address] [place] [address] Wayne Duff M.D. Director [facility] # [id number] 65 Effective July 17, 2014 at 12:00pm there is an updated reference range. 66 Because ethnic data is not always readily [...] 15-29 5 Kidney failure <15 (or dialysis) 67 Because ethnic data is not always [...] 5 Kidney failure <15 (or dialysis) 68 FASTING~PATIENT HAD BARIUM BEVERAGE WITH CRYSTALS AT 08:30 AM PRIOR~TO BLOODWORK 69 Desirable <150 Borderline high 150-199 High 200-499 Very High >500 70 Desirable <200 Borderline high 200-239 High >239 71 Low <40 Desirable: 40-60 High: >60 72 Desirable <100 Near Optimal 100-129 Borderline high 130-159 High 160-189 Very High >189 73 Because ethnic data is not always readily [...] 15-29 5 Kidney failure <15 (or dialysis) 74 RUN DATE: 11/03/13 [facility] LAB LIVE PAGE 1 RUN TIME: [address] [place], [place] [address] Specimen Inquiry Name: PEE COATESSEDA Alicea : [address]: Tarsha Underwood MD Acct: [id number] Unit: [id number] AGE: 53 Location: [facility] Re10/31/13 SEX: F Status: REG REF SPEC: [id number] HASEEB: 10/31/[address]: Tarsha Underwood MD REQ: [id number] RECD: 10/31/13 STATUS: SOUT _ ORDERED: IMAGE ANALYSIS, HPV/Thin Prep FINAL DIAGNOSIS Negative for Intraepithelial lesion or Malignancy COMMENTS: Specimen sent to [facility] in [place], [place] on 11/03/13 by [id number] at 1220. Results will be reported separately. [...] was evaluated with the assistance of the [employer] CarePrep Test Imaging System. Due to cytologic findings at the beverage steward microscope, comprehensive manual rescreening by a Windmill Mechanic may be required. The Pap Smear is [...] performed at Main Lab DEPARTMENT OF PATHOLOGY, [address] [place] [address] Wayne Duff M.D. Director [facility] # [id number] 75 RESULT: Ectocervical/Endocervical 76 The following Other High Risk HPV types were not detected: 31, 33, 35, 39, 45, 51, 52, 56, 58, 59, 66, and 68 Test Performed by: [address] [address] Supply Technician: Jorge Luis Ruiz III, M.D. 77 Normal Range 180 to 914 Indeterminate Range 145 to 180 Deficient Range <145 78 Because ethnic data is not always readily [...] 15-29 5 Kidney failure <15 (or dialysis) 79 RUN DATE: 09/08/13 [facility] LAB LIVE PAGE 1 RUN TIME: [address] [place] [address] Specimen Inquiry Name: KEENA COATES : [address]: Vasyl Richards MD Acct: [id number] Unit: [id number] AGE: 53 Location: ED Re09/06/13 SEX: F Status: DEP ER SPEC: [id number] HASEEB: 09/06/[address]: Patrizia TSAI REQ: [id number] RECD: 09/06/13 STATUS: CELIA ERNANDEZ DR: Vasyl Underwood MD _ SOURCE: URINE [facility]: ORDERED: Urine Culture Procedure Result Verified Site Urine Culture Final 09/08/13- 0940 ML Organism 1 NORMAL CHAVEZ [place] Count 1-10,000 (Few) CFU/ML END OF REPORT * ML=Testing performed at Main Lab DEPARTMENT OF PATHOLOGY, [address] [place] [address] Wayne Duff M.D. Director [facility] Permit #[id number] 80 FASTING 81 Normal Range 180 to 914 Indeterminate Range 145 to 180 Deficient Range <145 82 -- REFERENCE VALUE -- 25-HYDROXY D TOTAL (D2+D3) Optimum levels in the healthy population are 20-50, patients with bone disease may benefit from higher levels within this range. Test Performed by: [address] [address] Supply Technician: Jorge Luis Ruiz III, M.D. 83 Desirable <150 Borderline high 150-199 High 200-499 Very High >500 84 Desirable <200 Borderline high 200-239 High >239 85 Low <40 Desirable: 40-60 High: >60 86 Desirable <100 Near Optimal 100-129 Borderline high 130-159 High 160-189 Very High >189 87 FASTING 88 FASTING 89 2+ (>10-30 /hpf) 90 RUN DATE: 03/23/13 [facility] LAB LIVE PAGE 1 RUN TIME: [address] [place] [address] Specimen Inquiry Name: KEENA COATES : [address]: Tez Olmstead RPA- Acct: [id number] Unit: [id number] AGE: 53 Location: LAB Re03/21/13 SEX: F Status: REG REF SPEC: [id number] HASEEB: 03/21/13-[address]: Tez ROONEYC REQ: [id number] RECD: 03/21/13 STATUS: CELIA ERNANDEZ DR: Tarsha Underwood MD _ SOURCE: URINE SPDESC: ORDERED: Urine Culture Procedure Result Verified Site Urine Culture Final 03/23/13- 0857 ML Organism 1 NORMAL CHAVEZ [place] Count 75-100,000 (Many) CFU/ML END OF REPORT * ML=Testing performed at Main Lab DEPARTMENT OF PATHOLOGY, [address] [place] [address] Wayne Duff M.D. Director [facility] Permit #[id number] 91 Dipstick not performed due to tech error 92 2+ (>10-30 /hpf) 93 PT IS FASTING 94 HDL Interpretation: Undesirable: High Risk: Less than 40 MG/DL Desirable: Low Risk: Greater than 60 MG/DL 95 LDL Interpretation: Low Risk Optimal Level: LDL Less than 100 MG/DL Near or Above Optimal: LDL 100-129 MG/DL Borderline High Risk: LDL 130-159 MG/DL High Risk: LDL 160-189 MG/DL Very High Risk: LDL Greater than 189 MG/DL 96 Normally menstruating females - Follicular phase 3 - 9 - Mid-cycle peak 4 - 23 - Luteal phase 1 - 6 Postmenopausal females 16 - 114 97 -- REFERENCE VALUE -- 25-HYDROXY D TOTAL (D2+D3) Optimum levels in the normal population are 25-80 Test Performed by: [facility] [employer] [place] [address] [place] [address] Supply Technician: oJrge Luis Ruiz III, M.D. 98 Recommended INR for Patients on Oral Anticoagulants Prophylaxis 2.0 - 3.0 Treatment of thrombosis 2.0 - 3.0 Prevention of embolism 2.0 - 3.0 Prevention of embolism from prosthetic heart valves 2.5 - 3.5 99 DIAGNOSIS,TREATMENT,AND THERAPY MUST BE BASED ON THE INR VALUE ALONE. 10 Anion gap measurement may be of limited value in the 0 presence of any alkalosis, especially in a combined acid base disorder. . 10 Because ethnic data is not always readily available, 1 this report includes an eGFR for both [...] 5 Kidney failure <15 (or dialysis) 10 * 2 MALES: < 5.0 MIU/ML NON FEMALES < [...] confirmed by an alternate HCG method. . 10 If clinically indicated, testing for Hepatitis B Core 3 IgM antibody is necessary to differentiate between acute and past HBV infection. Test Performed by: [facility] Dpt of Lab Med and Pathology [address] [place] [address] Supply Technician: Jorge Luis Ruiz III, M.D. 10 Test Performed by: 4 [facility] Dpt of Lab Med and Pathology [address] [place], [place] [address] Supply Technician: Jorge Luis Ruiz III, M.D. 10 Anion gap measurement may be of limited value in the 5 presence of any alkalosis, especially in a combined acid base disorder. . 10 A metabolite of Naproxen, O-desmethylnaproxen, has been 6 shown to interfere with the Jendrassik-Amish method for measuring total bilirubin. Samples from patients who have taken Naproxen have shown spurious elevation in total bilirubin levels. 10 Because ethnic data is not always readily available, 7 this report includes an eGFR for both [...] 5 Kidney failure <15 (or dialysis) 10 CHOLESTEROL INTERPRETATION: 8 Desirable: Less than 200 MG/DL Borderline-High Risk: 200-239 MG/DL High-Risk: 240 MG/DL and over 10 HDL INTERPRETATION: 9 Undesirable: High Risk: Less than 40 MG/DL Desirable: Low Risk: Greater than 60 MG/DL 11 LDL INTERPRETATION: 0 Low Risk Optimal Level: LDL Less than 100 MG/DL Near or Above Optimal: LDL 100-129 MG/DL Borderline High Risk: LDL 130-159 MG/DL High Risk: LDL 160-189 MG/DL Very High Risk: LDL Greater than 189 MG/DL 11 The World Health Organization (WHO) Hepatitis B 1 Immunoglobulin 1st International Reference Preparation (1976): The accepted criteria for immunity to HBV is anti-HBs activity greater than or equal to 10 mIU/mL. An Index Value of 1.00 is equivalent to 10 mIU/mL. Samples with an Index Value of 1.00 or greater are considered reactive (protective) in accordance with the CDC guidelines. 11 -- REFERENCE VALUE -- 2 25-HYDROXY D TOTAL (D2+D3) Optimum levels in the normal population are 25-80 Test Performed by: [facility] Med [facility] Pathology [address] [place] [address] Supply Technician: Jorge Luis Ruiz III, M.D. Procedures Date CPT Code Description Status Comment 11/20/2017 11589 Inject/Drain Joint/Bursa Completed Major W/O US 11/07/2017 06479 EEG Recording Awake & Drowsy Completed 11/07/2017 06182 ECHO Transthorasic Realtime Completed 2D W Doppler & Color Flow Hosp 03/12/2017 Mammogram Completed 12/21/2015 Mammogram Completed 12/15/2014 Mammogram Completed 02/17/2014 Colonoscopy Completed 11/18/2013 Mammogram Completed 01/31/2012 71482 EKG Tracing & Interpretation Completed 12/26/2011 Mammogram Completed 08/24/[address] Encinas, 2 hyperplastic polyps per [facility] Encounters Type Date Location Provider CPT E/M Dx Office Visit 12/25/2017 9:30a [facility] [place] [address] M19.212 C.M.A. S46.012D Office Visit 11/20/2017 9:30[place] [facility] [place] [address] M54.2 C.M.A. S46.012D M19.212 S46.012A Office Visit 11/19/2017 8:00a [facility] Lui Samson M.D. 83394 R41.0 Medicine - [address] M54.2 M25.512 Office Visit 11/19/2017 10:00a [facility] Corina Constantino PA-C 30009 M25.512 Of [facility] M54.16 Office Visit 11/07/2017 1:09p [facility], Sary Lopez, 26151 R41.0 Hospitalists Karol R51 R07.9 Office Visit 11/07/2017 7:00a [facility] [address] R40.4 R41.0 Office Visit 11/06/2017 1:08p [facility], [place] [address] R41.0 Hospitalists R51 Office Visit 11/01/2017 1:40p [facility] Lui Samson, 39531 M51.16 Medicine - [address] Karol M54.2 M25.512 Office Visit 10/24/2017 2:40p [facility] Medicine Lui Samson, 59319 M54.2 - Ayla Roberson M25.512 Office Visit 10/17/2017 11:30a [facility] [address] G43.009 R94.02 M54.2 R20.0 Office Visit 08/14/2017 11:00a [facility] Lui Samson, 76934 J45.909 Medicine - [address] Karol K21.9 Office Visit 07/17/2017 8:40a [facility] Lui Samson 00916 J45.909 Medicine - [address] Karol G47.00 K21.9 Office Visit 07/02/2017 9:45a [facility] [place] [address] Z98.84 [facility] FACS K21.9 Office Visit 04/10/2017 8:00a [facility] Gayatri Samson M.D. 19502 J06.9 Medicine - [address] M25.571 Office Visit 03/27/2017 2:40p [facility] Lui Samson 92230 Z01.818 Medicine - [address] Karol N90.3 J06.9 Office Visit 02/13/2017 11:30a [facility] [address] G43.009 R94.02 R42 R13.10 Office Visit 01/30/2017 11:20a [facility] Medicine Lui Samson M.D. 86716 I10 - [address] K21.9 J45.909 E66.9 G47.00 Office Visit 11/03/2016 11:00a [facility] [place] [address] R94.02 Services Of [facility] R42 Office Visit 10/17/2016 9:00a [facility] Lui Samson, 02970 Z00.00 Medicine - [address] Karol E78.2 R31.9 E87.6 Office Visit 10/13/2016 2:00p [facility] Alfredo Trevizo, 62852 R94.02 Medicine - [address] Kaorl,FACP H81.399 E87.6 Office Visit 10/09/2016 1:20p [facility] Lui Samson M.D. 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.9 Office Visit 06/30/2016 2:40p [facility] Alfredo Trevizo, 70848 J45.41 Medicine - [address] Karol,FAC Office Visit 01/11/2016 7:40a [facility] Lui Samson, 43028 K21.9 Medicine - [address] Karol R31.9 D69.6 R94.5 G43.019 Office Visit 12/10/2015 2:20p [facility] [place] [address] Office Visit 12/03/2015 10:45a [facility] Kevin Cottrell, 97756 M54.5 Of [facility] AT Ronnie Roberson Office Visit 11/09/2015 8:00a [facility] Medicine Josh Samson, [address] Karol J20.9 Office Visit 11/01/2015 3:00p [facility] [place] [address] R05 Office Visit 09/28/2015 8:00a [facility] Lui Samson, 94259 M51.16 Medicine - [address] M.D. S40.021A R53.83 Z23 Office Visit 08/31/2015 7:40a [facility] Lui Mali, 19113 M51.16 Medicine - [address] M.D. Office Visit 08/17/2015 2:20p [facility] Lui Reaganwoody, 85587 M51.16 Medicine - [address] M.D. M25.552 Office Visit 06/04/2015 1:20p [facility] Josh Brody M.D. [address] M54.2 M54.5 Office Visit 04/08/2015 9:20a [facility] Alcides Brody [address] M.D. Office Visit 03/02/2015 9:40a [facility] Alcides Brody [address] M.D. Office Visit 12/25/2014 4:00p [facility] Josh Brody [address] M.D. Office Visit 11/09/2014 10:30a [facility] Kevin Cottrell 01821 724.2 Of [facility] M.D. Office Visit 09/08/2014 3:40p [facility] Beba Brody [address] M.D. 535.40 787.20 535.50 Office Visit 08/26/2014 10:00a [facility] Kevin Cottrell M.D. 81957 724.2 Of [facility] Office Visit 08/25/2014 3:20p [facility] Beba Brody M.D. [address] 787.91 724.2 724.8 Office Visit 08/20/2014 11:20a [facility] Beba Brody M.D. 74281 009.3 - [address] 276.51 787.91 Office Visit 07/29/2014 10:30a [facility] Kevin Cottrell 57071 724.2 Of [facility] M.D. Office Visit 06/24/2014 3:30p [facility] Kevin Cottrell 82335 724.2 [facility] M.D. Office Visit 06/09/2014 2:40p [facility] Beba Brody 93349 493.00 Ayla Roberson 784.0 724.5 722.52 Office Visit 04/24/2014 3:00p [facility] Medicine Alcides Brody M.D. 37881 724.5 - [place] 722.91 722.52 Office Visit 03/31/2014 10:20a [facility] Medicine Maurilio Torrez, 98968 719.42 - Ayla Roberson V04.81 Office Visit 03/03/2014 4:00p [facility] Medicine Eusebio Flores, MICHAELLE 00417 465.9 - [place] Office Visit 01/27/2014 11:00a [facility] Medicine Eusebio Flores, MICHAELLE 40859 723.1 - [place] Office Visit 01/06/2014 11:40a [facility] Medicine Johana Ferreira, N.P. 90498 530.81 - [place] Office Visit 10/31/2013 2:00p [facility] Tarsha Underwood M.D. 07535 V76.2 - [place] V76.10 V70.0 296.31 535.00 V45.86 Office Visit 09/30/2013 10:20a [facility] Medicine Johana Ferreira, N.P. 19181 528.9 - [place] Office Visit 09/12/2013 1:40p [facility] Medicine Tarsha Underwood M.D. 43486 599.70 - [place] 724.5 Office Visit 09/02/2013 11:20a [facility] Medicine Johana Ferreira, N.P. 63385 465.9 - [place] 535.00 724.5 Office Visit 06/27/2013 2:40p [facility] Medicine - Tarsha Underwood M.D. 36629 722.93 [place] 724.5 Office Visit 05/26/2013 3:00p [facility] Medicine - Tarsha Underwood M.D. 22267 722.93 [place] 724.5 Office Visit 03/21/2013 11:40a [facility] Medicine - Tarsha Underwood M.D. 17446 724.5 [place] 599.70 719.45 Office Visit 02/03/2013 9:00a [facility] Medicine - Tarsha Underwood M.D. 10389 296.31 [place] 724.5 Office Visit 12/18/2012 11:20a [facility] Medicine Tarsha Undrewood M.D. 80881 724.5 - [place] Office Visit 12/10/2012 3:40p [facility] Johana Ferreira N.PDoug 16025 724.5 - [place] Office Visit 08/30/2012 1:40p [facility] Medicine Tarsha Underwood M.D. 67808 530.12 - [place] 724.5 296.31 626.8 V70.0 Office Visit 08/05/2012 10:40a [facility] Medicine - Tarsha Underwood M.D. 03377 724.5 [place] 296.31 530.12 Office Visit 07/01/2012 2:20p [facility] Medicine - Tarsha Underwood M.D. 38756 724.5 [place] 722.93 Office Visit 05/31/2012 2:20p [facility] Medicine - Tarsha Underwood M.D. 50438 724.5 [place] Office Visit 04/24/2012 10:40a [facility] Medicine - Tarsha Underwood M.D. 91293 722.93 [place] 709.9 Office Visit 04/03/2012 9:20a [facility] Medicine - Tarsha Underwood M.D. 08936 722.93 [place] Office Visit 03/27/2012 12:40p [facility] Medicine - Tarsha Underwood M.D. 54602 724.5 [place] 722.93 Office Visit 03/15/2012 10:40a [facility] Medicine - Tarsha Underwood M.D. 76279 722.93 [place] 724.5 Office Visit 01/31/2012 11:20a [facility] Medicine - Tarsha Underwood M.D. 25187 722.93 [place] 493.90 V45.86 296.31 281.9 Office Visit 01/08/2012 9:40a [facility] Medicine - Tarsha Underwood M.D. 66765 782.3 [place] 724.5 493.90 Office Visit 11/17/2011 4:00p [facility] Medicine - Tarsha Underwood M.D. 06993 722.93 [place] 724.5 995.3 Office Visit 11/03/2011 12:40p [facility] Medicine - Tarsha Underwood M.D. 15133 722.93 [place] Office Visit 10/13/2011 2:00p [facility] Medicine - Tarsha Underwood M.D. 08307 722.93 [place] 724.5 V45.86 Office Visit 09/13/2011 10:40a [facility] Medicine - Tarsha Underwood M.D. 58851 722.93 [place] V45.86 Office Visit 07/28/2011 10:40a [facility] Medicine - Tarsha Underwood M.D. 24643 722.93 [place] 783.1 296.31 789.02 Office Visit 07/11/2011 4:20p [facility] Medicine Johana Ferreira, N.P. 16701 724.5 - [place] Office Visit 07/05/2011 1:40p [facility] Medicine Tarsha Underwood M.D. 25997 783.1 - [place] Office Visit 06/23/2011 8:40a [facility] Medicine Tarsha Underwood M.D. 18128 715.11 - [place] Office Visit 06/09/2011 11:00a [facility] Medicine Tarsha Underwood M.D. 11945 296.31 - [place] 719.41 Office Visit 05/10/2011 9:20a DO Not Use Secondary Connector Armature-[place] Tarsha Underwood M.D. 13461 296.31 Office Visit 04/26/2011 9:40a DO Not Use Secondary Connector Armature-[place] Tarsha Underwood M.D. 75392 296.31 Office Visit 04/12/2011 9:40a DO Not Use Secondary Connector Armature-[place] Tarsha Underwood M.D. 23017 281.9 V45.86 733.6 790.6 V02.61 Office Visit 03/29/2011 1:40p DO Not Use Secondary Connector Armature-[place] Underwood M.D. 27719 281.9 807.00 296.31 Plan of Care Future Appointment(s):02/05/2018 8:45 am - [facility]2018 10:30 am - Corina Constantino PA-C at [facility]02/18/2018 10:00 am - Lui Samson M.D. at [facility] Medicine - [address] 12/31/2017 10:00 am - Lui Samson M.D. at [facility] Medicine - [address]04/15/2018 9:30 am - Parker Reis M.D. at [facility]12/25/2017 - Quentin Sanders, MDM19.212 Secondary osteoarthritis, left hhprjimeB29.012D Strain of musc/tend the rotator cuff of left shoulder, subsFollow up:Follow up: 6weeks
--- OUTSIDE RECORDS SUMMARY | 2018-01-08 13:44 | XMS REPORT ---
:1960 External Reference #:[id number] Author Organization [facility] Address [address] [place] [address] [place] [address] Phone [phone] Care Team Providers Name Role Phone Lui Samson MD Primary Care Physician Unavailable Payers Type Date Identification Numbers Payment Provider Subscriber Commercial Policy Number: [id number] Agustín Coates Group Number: [id number] [address] PayID: [id number] [place] [address] Commercial Effective: Policy Number: Dennis/[employer] Keena Coates 2012 [id number] Medicaid Expires: 2012 PayID: [id number] [address] [address] [place] [address] Commercial Expires: 2012 Policy Number: [id number] Agustín Coates Group Name: CHAS# [id number] [address] PayID: [id number] [place] [address] Problems Date Description Provider Status Onset: 04/12/2011 [...] walks on occ 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 Handle disease Jobst Trouser 01/07 Active Misc 1Pair 1 pair prn 782.3 Eusebio 8-15MMHG/Knee /2011 to lower [place], SUPERVISOR [employer] High/Women/Mediu legs m Citalopram Active Tablets 20mg 30tab 1 every Coram Hydrobromide / s day Karol Samson Tylenol [...] tab G47.00 Lui Tartrate s daily at [facility], - bedtime M.D. 11/09 Dulera 07/17 Hx Aerosol 200-5mcg/ 8.800 2 puff J45.909 Act gm twice a [facility], - day M.D. 11/09 Montelukast 07/17 Hx [...] tab G47.00 Lui Tartrate s daily at [facility], - bedtime M.D. 07/17 Zolpidem 01/30 Hx [...] mouth Alfredo s every day Josh Hollingsworth M.D.,[facility] 10/19 Klor-Con 10 10/13 Hx Tablets ER 10Meq 30tab 1 by mouth Alfredo s every day Josh Hollingsworth M.D.,[facility] 02/12 Diclofenac 09/05 Hx Gel 1% [...] by mouth Alfredo s twice a [place], - day for 7 M.D.,FACP Cheratussin ac 06/30 Hx Syrup 100-10mg/ 236ml 10 5ML milliliter Shahnaz Trevizo, - s by mouth M.D.,FACP 10/13 four times a day as needed Pantoprazole 01/[address] 20mg 60tab 1 tab K21.9 Coram Sodium /2015 s twice a [place], - [...] Hx Tablets 10mg 90tab one by M54.89 Coram HCL /2014 s mouth Pachikara, - three M.D. 10/19 times day as needed spasm Asmanex 06/09 Hx Aerosol 220mcg/In 1unit 1 puff po J45.20 Darin Schreiberhaler 120 /2015 h s bid Turkish, SUPERVIS[employer] Metered Doses - 11/10 Lasix 05/12 Hx [...] 465.8 Eusebio 12HR s mouth q12 Sandra SUPER[employer] - hours 06/09 Omeprazole 01/06 Hx Capsules [...] 2 puffs by e) s mouth Jeremy SUPERVIS[employer] - mcg/Act every 4 10/19 hours needed Cyclobenzaprine 06/27 Hx Tablets 5mg 60tab Take 1-2 722.93 Tarsha s tablets at [place], - night for M.D. 04/24 back pain [...] 30cap Take 1-2 724.5 s tablets at [place], - night M.D. 06/27 Percocet 12/10 Hx [...] CPT Code Status Date Vaccine Lot # [id number] Given 09/28/2015 Pneumonia Vaccine [id number] Given 03/31/2014 Flu Vaccine Split Virus Preservative Free For [id number] Indiv 3Yr Older Vital Signs Date Vital Result Comment 12/19/2017 Height 65 inches 5'5" Weight 220.00 [...] Diastolic Sitting 70 mmHg Pain Level 10 02/27 O2 % BldC Oximetry 98 % BMI [...] Color Yellow Urine Appearance Clear Urine Specific [place] 1.025 1.010-1.030 Urine pH 5.0 5-9 Urine [...] Color Straw Urine Appearance Clear Urine Specific [place] 1.010 1.010-1.030 Urine pH 7.0 5-9 Urine [...] Color Colorless Urine Appearance Clear Urine Specific [place] 1.004 Low 1.010-1.030 Urine pH 6.0 5-9 [...] Color Straw Urine Appearance Clear Urine Specific [place] 1.012 1.010-1.030 Urine pH 6.0 5-9 Urine [...] 11.27 ng/mL >3.99 Laboratory test 04/14/2015 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 44 finding Laboratory test [...] Color Colorless Urine Appearance Clear Urine Specific [place] 1.017 1.010-1.030 Urine pH 6.0 5-9 Urine [...] Color Straw Urine Appearance Clear Urine Specific [place] 1.011 1.010-1.030 Urine pH 7.0 5-9 Urine [...] 180-914 77 Ua Routine 09/12/2013 Ua Specific [place] 1.020 Ua PH 5 Ua Color yellow [...] Color Yellow Urine Appearance Clear Urine Specific [place] 1.021 1.010-1.030 Urine Esterase 1+ Negative Urine [...] Color Yellow Urine Appearance Clear Urine Specific [place] 1.024 1.010-1.030 Urine Esterase 2+ Negative Urine [...] % 0 Ua Routine 01/31/2012 Ua Specific [place] 1.015 Ua PH 5 Ua Color yellow [...] () 112 1 SEE RESULT BELOW Name: LILIAKEENA M : [address]: Estrellita Newton MD Acct: [id number] Unit: [id number] AGE: 57 Location: ED Re12/05/17 SEX: F Status: DEP ER SPEC: [id number] HASEEB: 12/05/[address]: Davina TSAI REQ: [id number] RECD: 12/05/17 STATUS: CELIA ERNANDEZ DR: [facility] Lui Samson MD _ SOURCE: URINE SPDESC: ORDERED: Urine Culture Procedure Result Reported Site Urine Culture Final 12/07/17- 08 ML No growth of clinically significant organisms * ML - Main Lab . END OF REPORT DEPARTMENT OF PATHOLOGY, [address] [place] [address] Wayne Duff M.D. Director [facility] # [id number] 2 Because ethnic data is not always [...] 5 Kidney failure <15 (or dialysis) 3 [employer] Worker: [id number] 4 [facility] Severe Sepsis and Septic Shock Management [...] 10 SEE RESULT BELOW Name: KEENA COATES Deanne : [address]: Maco Nettles MD Acct: [id number] Unit: [id number] AGE: 57 Location: ED Re08/09/17 SEX: F Status: DEP ER SPEC: [id number] HASEEB: 08/09/17 [facility] DR: Maco Nettles MD REQ: [id number] RECD: 08/09/17 STATUS: CELIA ERNANDEZ DR: Lui Samson MD _ SOURCE: URINE SPDESC: ORDERED: Urine Culture Procedure Result Reported Site Urine Culture Final 08/11/17- 0854 ML No Growth (<1,000 CFU/mL) * ML - Main Lab . END OF REPORT DEPARTMENT OF PATHOLOGY, [address] [place] [address] Wayne Duff M.D. Director [facility] # [id number] 11 Because ethnic data is not always [...] 5 Kidney failure <15 (or dialysis) 12 [employer] Worker: [id number] 13 Because ethnic data is not always [...] 20 99th percentile=0.04 ng/mL Troponin results at [facility] and [facility] are not interchangeable. 21 Desirable <150 Borderline high 150-199 High 200-499 Very High >500 22 Desirable <200 Borderline high 200-239 High >239 23 Low <40 Desirable: 40-60 High: >60 24 Desirable: <100 mg/dL Near Optimal: 100-129 mg/dL Borderline High: 130-159 mg/dL High: 160-189 mg/dL Very High: >189 mg/dL 25 [id number] 26 Because ethnic data is not always [...] 5 Kidney failure <15 (or dialysis) 27 [id number] 28 [id number] 29 Serologic response to B. burgdorferi infection is not detected, but cannot rule out early infection during which low or undetectable antibody levels to B. burgdorferi may be present. If clinically indicated, a new serum specimen should be submitted in 7-14 days. Lipemic Test Performed by: [address] [address] [employer] Press Setter Operator: Quan Fishman II, M.D., Ph.D. 30 No [...] not reviewed by physician. Test Performed by: [place] [address] [employer] Setter Operator: Quan Fishman II, M.D., Ph.D. 31 Test Performed by: [place] [address] [employer] Setter Operator: Quan Fishman II, M.D., Ph.D. 32 Result in log IU/mL is Undetected The quantification range of this assay is 20 IU/mL to 170,000,000 IU/mL (1.30 log IU/mL to 8.23 log IU/mL). Testing was performed by the CAROL AmpliPrep/CAROL TaqMan HBV test, version 2.0 ([employer] Test Performed by: [place] [address] [employer] Press Setter Operator: Quan Fishman II, M.D., Ph.D. 33 Test Performed by: [place] [address] [employer] Setter Operator: Quan Fishman II, M.D., Ph.D. 34 If clinically indicated, testing for Hepatitis B Core IgM antibody is necessary to differentiate between acute and past HBV infection. Test Performed by: [place] [address] [employer] Setter Operator: Quan Fishman II, M.D., Ph.D. 35 [id number] 36 This assay does not differentiate between reactivity due to a vaccine-induced immune response or an immune response induced by infection with HBV. 37 [id number] 38 SEE RESULT BELOW Name: KEENA COATES : [address]: Kevin Boyd MD Acct: [id number] Unit: [id number] AGE: 55 Location: [facility] Re01/01/16 SEX: F Status: DEP ER SPEC: [id number] HASEEB: 01/01/16 [facility] DR: Sara Palacio NP REQ: [id number] RECD: 01/02/16 STATUS: CELIA ERNANDEZ DR: [facility] Lui Samson MD _ SOURCE: URINE SPDESC: ORDERED: Urine Culture COMMENTS: [id number] Procedure Result Reported Site Urine Culture Final 01/03/16- 1457 ML No Growth (<1,000 CFU/mL) * ML - MAIN LAB ([facility]) . END OF REPORT * ML=Testing performed at Main Lab DEPARTMENT OF PATHOLOGY, [address] [place] [address] Wayne Duff M.D. Director [facility] # [id number] 39 [facility] Severe Sepsis and Septic Shock Management Bundle Measure requires all lactic acids initially measuring >2.0 mmol/L be repeated. 40 Reference Range and Interpretation: TnI (ng/mL) Interpretation Less Than 0.03 ng/mL Not supportive of diagnosis of PA 0.03 - 0.50 ng/mL Indeterminate: suggest serial studies if clinically indicated. Greater than 0.5 ng/mL Consistent with diagnosis of PA 41 Because ethnic data is not always [...] [address]: Dwight Brown MD Acct: [id number] Unit: [id number] AGE: 55 Location: LAB Re04/14/15 SEX: F Status: REG REF SPEC: [id number] HASEEB: 04/14/[address]: Dwight Brown MD REQ: [id number] RECD: 04/14/157 STATUS: SULTANA ERNANDEZ DR: Alcides Brody MD _ ORDERED: THIN PREP NON G FINAL DIAGNOSIS Urine, voided: Negative for malignant cells. URINE VOID CLINICAL HISTORY Gross hematuria GROSS DESCRIPTION 5 mls of cloudy peach colored urine. Signed (signature on file) Wayne Duff MD 1347 END OF REPORT * ML=Testing performed at Main Lab DEPARTMENT OF PATHOLOGY, [address] [place] [address] Wayne Duff M.D. Director [facility] # [id number] 45 Because ethnic data is not always [...] [address]: Eusebio Matute MD Acct: [id number] Unit: [id number] AGE: 54 Location: ED Re12/23/14 SEX: F Status: DEP ER SPEC: [id number] HASEEB: 12/24/[address]: Gene Godoy DO REQ: [id number] RECD: 12/24/14 STATUS: COMP AWAIS DR: Alcides Brody MD _ SOURCE: URINE SPDESC: ORDERED: Urine Culture Procedure Result Verified Site Urine Culture Final 12/26/14- 1034 ML Organism 1 NORMAL CHAVEZ Treece Count 25-50,000 (Moderate) CFU/ML * ML - MAIN LAB ([facility]) . END OF REPORT * ML=Testing performed at Main Lab DEPARTMENT OF PATHOLOGY, [address] [place] [address] Wayne Duff M.D. Director [facility] # [id number] 48 SEE RESULT BELOW Name: KEENA COATES : [address]: Eusebio Garcia MD Acct: [id number] Unit: [id number] AGE: 54 Location: [facility] Re12/23/14 SEX: F Status: DEP ER SPEC: [id number] HASEEB: 12/23/14-2034 [facility] [address]: Eusebio Garcia MD REQ: [id number] RECD: 12/24/14 STATUS: CELIA ERNANDEZ DR: [facility] Alcides Brody MD _ SOURCE: THROAT SPDESC: ORDERED: Throat Beta Str Procedure Result Verified Site Throat Beta Strep Culture Final 12/26/14- 0850 ML Negative For Group A Beta Streptococcus * ML - MAIN LAB ([facility]) . END OF REPORT * ML=Testing performed at Main Lab DEPARTMENT OF PATHOLOGY, [facility] [employer] [place] [address] Wayne Duff M.D. Director [facility] # [id number] 49 RUN DATE: 09/16/14 [facility] LAB LIVE PAGE 1 RUN TIME: 825 [facility] [employer] [place], [place] [address] Specimen Inquiry Name: KEENA COATES Deanne : [address]: Quan Guerrero MD Acct: [id number] Unit: [id number] AGE: 54 Location: ED Re09/14/14 SEX: F Status: DEP ER SPEC: [id number] HASEEB: 09/14/14-1820 [facility] [address]: Quan Guerrero MD REQ: [id number] RECD: 09/14/14 STATUS: CELIA ERNANDEZ DR: Alcides Brody MD _ SOURCE: URINE [facility]: ORDERED: Urine Culture Procedure Result Verified Site Urine Culture Final 09/16/14- 825 ML Organism 1 NORMAL CHAVEZ Treece Count 10-25,000 (Moderate) CFU/ML * ML - MAIN LAB ([facility]) . END OF REPORT * ML=Testing performed at Main Lab DEPARTMENT OF PATHOLOGY, [address] [place] [address] Wayne Duff M.D. Director [facility] # [id number] 50 Please note: The following may produce [...] 0.03 ng/mL Not supportive of diagnosis of PA 0.03 - 0.50 ng/mL Indeterminate: suggest serial studies if clinically indicated. Greater than 0.5 ng/mL Consistent with diagnosis of PA 54 Acute inflammation: >10.00 55 Because ethnic [...] of <18.00 are negative. Test Performed by: [place] [address] [employer] Set[employer] Operator: Quan Fishman II, M.D., Ph.D. 58 Results with Index Values of <8.95 are negative. Test Performed by: [place] [address] [employer] Operator: Quan Fishman II, M.D., Ph.D. 59 Results with Index Values of <36.00 are negative. Test Performed by: [place] [address] [employer] Operator: Quan Fishman II, M.D., Ph.D. 60 RUN DATE: 08/21/14 [facility] LAB LIVE PAGE 1 RUN TIME: [address] [place] [address] Specimen Inquiry Name: LILIAKEENA M : [address]: Alcides Brody MD Acct: [id number] Unit: [id number] AGE: 54 Location: [facility] Re08/21/14 SEX: F Status: REG REF SPEC: [id number] HASEEB: 08/21/14-10[address] [facility] [address]: Alcides Brody MD REQ: [id number] RECD: 08/21/14 STATUS: RES _ SOURCE: STOOL SPDESC: ORDERED: E.coli O157:H7, Stool Culture, C. diff Amp DNA, O P (Full) QUERIES: Provider Requisition # [id number] Procedure Result Verified Site E.coli O157:H7 Culture [...] performed at Main Lab DEPARTMENT OF PATHOLOGY, [address] [place] [address] Wayne Duff M.D. Director [facility] # [id number] RUN DATE: 08/21/14 [facility] LAB LIVE PAGE 2 RUN TIME: [address] [place] [address] Specimen Inquiry Patient: KEENA COATES [id number] (Continued) Specimen: [id number] Collected: 08/21/14 Received: 08/21/14-1056 (Continued) Procedure Result [...] Full PENDING * ML - MAIN LAB ([facility]) . END OF REPORT * ML=Testing performed at Main Lab DEPARTMENT OF PATHOLOGY, [facility] [employer] [place] [address] Wayne Duff M.D. Director [facility] # [id number] 61 REFERENCE RANGE: NOT DETECTED The Entamoeba histolytica antigen EIA test detects only the antigen of the pathogenic E. histolytica; the non-pathogenic E. dispar is not detected. Test Performed by: [employer] [address] [place] [address] 62 RUN DATE: 08/23/14 [facility] LAB LIVE PAGE 1 RUN TIME: [address] [place] [address] Specimen Inquiry Name: KEENA COATES : [address]: Alcides Brody MD Acct: [id number] Unit: [id number] AGE: 54 Location: [facility] Re08/21/14 SEX: F Status: REG REF SPEC: [id number] HASEEB: 08/21/14-[address]: Alcides Brody MD REQ: [id number] RECD: 08/21/14 STATUS: RES _ SOURCE: STOOL SPDESC: ORDERED: E.coli O157:H7, Stool Culture, C. diff Amp DNA, O P (Full) QUERIES: Provider Requisition # [id number] Procedure Result Verified Site E.coli O157:H7 Culture [...] performed at Main Lab DEPARTMENT OF PATHOLOGY, [facility] [employer] [place], [place] [address] Wayne Duff M.D. Director [facility] # [id number] RUN DATE: 08/23/14 [facility] LAB LIVE PAGE 2 RUN TIME: 1110 [facility] [employer] [place], [place] [address] Specimen Inquiry Patient: KEENA COATES [id number] (Continued) Specimen: [id number] Collected: 08/21/14-1029 Received: 08/21/14-1056 (Continued) Procedure Result [...] Full PENDING * ML - MAIN LAB ([facility]) . END OF REPORT * ML=Testing performed at Main Lab DEPARTMENT OF PATHOLOGY, [address] [place] [address] Wayne Duff M.D. Director [facility] # [id number] 63 RUN DATE: 08/25/14 [facility] LAB LIVE PAGE 1 RUN TIME: [address] [place], [place] [address] Specimen Inquiry Name: KEENA COATES : [address]: Alcides Brody MD Acct: [id number] Unit: [id number] AGE: 54 Location: [facility] Re08/21/14 SEX: F Status: REG REF SPEC: [id number] HASEEB: 08/21/14-[address]: Alcides Brody MD REQ: [id number] RECD: 08/21/14 STATUS: COMP _ SOURCE: STOOL SPDESC: ORDERED: E.coli O157:H7, Stool Culture, C. diff Amp DNA, O P (Full) QUERIES: Provider Requisition # [id number] Procedure Result Verified Site E.coli O157:H7 Culture [...] performed at Main Lab DEPARTMENT OF PATHOLOGY, [facility] [employer] [place] [address] Wayne Duff M.D. Director [facility] # [id number] RUN DATE: 08/25/14 [facility] LAB LIVE PAGE 2 RUN TIME: 1608 [facility] [employer] [place], [place] [address] Specimen Inquiry Patient: KEENA COATES [id number] (Continued) Specimen: [id number] Collected: 08/21/14-1029 Received: 08/21/14-1056 (Continued) Procedure Result [...] performed at Main Lab DEPARTMENT OF PATHOLOGY, [facility] [employer] [place] [address] Wayne Duff M.D. Director [facility] # [id number] RUN DATE: 08/25/14 [facility] LAB LIVE PAGE 3 RUN TIME: 1608 [facility] [employer] [place], [place] [address] Specimen Inquiry Patient: KEENA COATES [id number] (Continued) Specimen: [id number] Collected: 08/21/14-1029 Received: 08/21/14-1056 (Continued) Procedure Result Verified Site Ova Parasite Concen Full Final (continued) 08/25/14- 160 Final Result No Ova Parasites seen by Ethyl Acetate Concentration No Cysts or Trophs Seen on Trichrome smear * ML - MAIN LAB ([facility]) . END OF REPORT * ML=Testing performed at Main Lab DEPARTMENT OF PATHOLOGY, [facility] [employer] [place] [address] Wayne Duff M.D. Director [facility] # [id number] 64 RUN DATE: 08/24/14 [facility] LAB LIVE PAGE 1 RUN TIME: 3112 [facility] [employer] [place], [place] [address] Specimen Inquiry Name: KEENA COATES : [address]: Alcides Brody MD Acct: [id number] Unit: [id number] AGE: 54 Location: [facility] Re08/21/14 SEX: F Status: REG REF SPEC: [id number] HASEEB: 08/21/14-0 [facility] DR: Alcides Brody MD REQ: [id number] RECD: 08/21/14 STATUS: RES _ [facility] ORDERED: E.coli O157:H7, Stool Culture, C. diff Amp DNA, O P (Full) QUERIES: Provider Requisition # [id number] Procedure Result Verified Site E.coli O157:H7 Culture [...] performed at Main Lab DEPARTMENT OF PATHOLOGY, [address] [place] [address] Wayne Duff M.D. Director [facility] # [id number] RUN DATE: 08/24/14 [facility] LAB LIVE PAGE 2 RUN TIME: [address] [place], [place] [address] Specimen Inquiry Patient: KEENA COATES [id number] (Continued) Specimen: [id number] Collected: 08/21/14 Received: 08/21/14-1056 (Continued) Procedure Result [...] Full PENDING * ML - MAIN LAB ([facility]) . END OF REPORT * ML=Testing performed at Main Lab DEPARTMENT OF PATHOLOGY, [address] [place] [address] Wayne Duff M.D. Director [facility] # [id number] 65 Effective July 17, 2014 at 12:00pm [...] <15 (or dialysis) 74 RUN DATE: 11/03/13 [facility] LAB LIVE PAGE 1 RUN TIME: [address] [place], [place] [address] Specimen Inquiry Name: KEENA COATES : [address]: Tarsha Underwood MD Acct: [id number] Unit: [id number] AGE: 53 Location: [facility] Re10/31/13 SEX: F Status: REG REF SPEC: [id number] HASEEB: 10/31/13 [facility] [address]: Tarsha Underwood MD REQ: [id number] RECD: 10/31/13 STATUS: SOUT _ ORDERED: IMAGE ANALYSIS, HPV/Thin Prep FINAL DIAGNOSIS Negative for Intraepithelial lesion or Malignancy COMMENTS: Specimen sent to [facility] in [place], [place] on 11/03/13 by [id number] at 1220. Results will be reported separately. [...] was evaluated with the assistance of the atokorePrep Test Imaging System. Due to cytologic findings at the security incident response engineer microscope, comprehensive manual rescreening by a Torts Law Professor may be required. The Pap Smear is [...] performed at Main Lab DEPARTMENT OF PATHOLOGY, [address] [place] [address] Wayne Duff M.D. Director [facility] # [id number] 75 RESULT: Ectocervical/Endocervical 76 The following Other High Risk HPV types were not detected: 31, 33, 35, 39, 45, 51, 52, 56, 58, 59, 66, and 68 Test Performed by: [place] [address] [employer] Operator: Jorge Luis Ruiz III, M.D. 77 Normal [...] <15 (or dialysis) 79 RUN DATE: 09/08/13 [facility] LAB LIVE PAGE 1 RUN TIME: [address] [place] [address] Specimen Inquiry Name: KEENA COATES : [address]: Vasyl Richards MD Acct: [id number] Unit: [id number] AGE: 53 Location: ED Re09/06/13 SEX: F Status: DEP ER SPEC: [id number] HASEEB: 09/06/[address]: Patrizia TSAI REQ: [id number] RECD: 09/06/13 STATUS: COMP OTHR DR: Vasyl Underwood MD _ SOURCE: URINE SPDESC: ORDERED: Urine Culture Procedure Result Verified Site Urine Culture Final 09/08/13- 939 ML Organism 1 NORMAL CHAVEZ Treece Count 1-10,000 (Few) CFU/ML END OF REPORT * ML=Testing performed at Main Lab DEPARTMENT OF PATHOLOGY, [address] [place] [address] Wayne Duff M.D. Director [facility] Permit #[id number] 80 FASTING 81 Normal Range 180 to 914 Indeterminate Range 145 to 180 Deficient Range <145 82 -- REFERENCE VALUE -- 25-HYDROXY D TOTAL (D2+D3) Optimum levels in the healthy population are 20-50, patients with bone disease may benefit from higher levels within this range. Test Performed by: [address] [address] [employer] Setter Operator: Jorge Luis Ruiz III, M.D. 83 Desirable <150 Borderline high 150-199 High 200-499 Very High >500 84 Desirable <200 Borderline high 200-239 High >239 85 Low <40 Desirable: 40-60 High: >60 86 Desirable <100 Near Optimal 100-129 Borderline high 130-159 High 160-189 Very High >189 87 FASTING 88 FASTING 89 2+ (>10-30 /hpf) 90 RUN DATE: 03/23/13 [facility] LAB LIVE PAGE 1 RUN TIME: [address] [place] [address] Specimen Inquiry Name: KEENA COATES : [address]: Tez Olmstead RPA- Acct: [id number] Unit: [id number] AGE: 53 Location: LAB Re03/21/13 SEX: F Status: REG REF SPEC: [id number] HASEEB: 03/21/13-999 [facility] DR: Tez ROONEYC REQ: [id number] RECD: 03/21/13 STATUS: CELIA ERNANDEZ DR: Tarsha Underwood MD _ SOURCE: URINE SPDESC: ORDERED: Urine Culture Procedure Result Verified Site Urine Culture Final 03/23/13- 0857 ML Organism 1 NORMAL CHAVEZ Treece Count 75-100,000 (Many) CFU/ML END OF REPORT * ML=Testing performed at Main Lab DEPARTMENT OF PATHOLOGY, [address] [place] [address] Wayne Duff M.D. Director [facility] Permit #[id number] 91 Dipstick not performed due to tech [...] normal population are 25-80 Test Performed by: [facility] [address] [address] [employer] Press Setter Operator: Jorge Luis Ruiz III, M.D. 98 Recommended INR [...] and past HBV infection. Test Performed by: [facility] Dpt of Lab Med and Pathology [address] [place] [address] [employer] Setter Operator: Jorge Luis Ruiz III, M.D. 10 Test Performed by: 4 [facility] D[facility] of [facility] Med and Pathology [address] [place] [address] [employer] Setter Operator: Jorge Luis Ruiz III, M.D. 10 Anion [...] normal population are 25-80 Test Performed by: [facility] [address] [place] [id number] Bullet Assembly Press Setter Operator: Jorge Luis Ruiz III, M.D. Procedures Date CPT Code Description Status Comment 11/20/2017 06916 Inject/Drain Joint/Bursa Completed Major W/O US 11/07/2017 52417 EEG Recording Awake & Drowsy Completed 11/07/2017 99362 ECHO Transthorasic Realtime Completed 2D W Doppler & Color Flow Hosp 03/12/2017 Mammogram Completed 12/21/2015 Mammogram Completed 12/15/2014 Mammogram Completed 02/17/2014 Colonoscopy Completed 11/18/2013 Mammogram Completed 01/31/2012 23041 EKG Tracing & Interpretation Completed 12/26/2011 Mammogram Completed 08/24/[address] Encinas, 2 hyperplastic polyps per [employer] Encounters Type Date Location Provider CPT E/M Dx Office Visit 12/19/2017 [facility] Kevin Cottrell M.D. 01565 M51.36 3:40p [facility] Office Visit 11/20/2017 [place] [address] M54.2 9:30a [facility] S46.012D M19.212 S46.012A Office Visit 11/19/2017 8:00a [facility] Internal Lui Samson M.D. 34514 R41.0 Medicine - [address] M54.2 M25.512 Office Visit 11/19/2017 10:00a [facility] Corina Constantino PA-C 09711 M25.512 [facility] M54.16 Office Visit 11/07/2017 1:09p [facility],elizabeth Lopez 78847 R41.0 Hospitalists Karol R51 R07.9 Office Visit 11/07/2017 7:00a [facility] [address] R40.4 R41.0 Office Visit 11/06/2017 1:08p [facility],[place] [address] R41.0 Hospitalists R51 Office Visit 11/01/2017 1:40p [facility] Internal Lui Samson, 28866 M51.16 Medicine - [place] Selvin Roberson M54.2 M25.512 Office Visit 10/24/2017 2:40p [facility] Internal [facility] Lui Samson, 52330 M54.2 - Ayla Roberson M25.512 Office Visit 10/17/2017 11:30a [facility] [address] G43.009 R94.02 M54.2 R20.0 Office Visit 08/14/2017 11:00a [facility] Internal Lui Samson, 80400 J45.909 Medicine - [place] Selvin Roberson K21.9 Office Visit 07/17/2017 8:40a [facility] Internal Lui Samson, 15941 J45.909 Medicine - [address] Karol G47.00 K21.9 Office Visit 07/02/2017 9:45a [facility] [place], [address] Z98.84 [facility] FACS K21.9 Office Visit 04/10/2017 8:00a [facility] Internal Lui Samson M.D. 62281 J06.9 Medicine - [address] M25.571 Office Visit 03/27/2017 2:40p [facility] Internal Lui Samson, 62899 Z01.818 Medicine - [place] Selvin Roberson N90.3 J06.9 Office Visit 02/13/2017 11:30a [facility] [address] G43.009 R94.02 R42 R13.10 Office Visit 01/30/2017 11:20a [facility] Internal Beba Samson M.D. 51378 I10 - [address] K21.9 J45.909 E66.9 G47.00 Office Visit 11/03/2016 11:00a [facility] [place] [address] R94.02 Services [facility] R42 Office Visit 10/17/2016 9:00a [facility] Internal Lui Samson, 23638 Z00.00 Medicine - [place] Selvin Roberson E78.2 R31.9 E87.6 Office Visit 10/13/2016 2:00p [facility] Internal Alfredo Trevizo, 86362 R94.02 Medicine - [address] MGale,FACP H81.399 E87.6 Office Visit 10/09/2016 1:20p [facility] Internal Lui Samson M.D. 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 Office Visit 01/11/2016 7:40a [facility] Internal Lui Samson, 69684 K21.9 Medicine - [address] MGale R31.9 D69.6 R94.5 G43.019 Office Visit 12/10/2015 2:20p [facility] Internal Medicine Josh Luna, MICHAELLE [address] Office Visit 12/03/2015 10:45a [facility] Kevin Cottrell, 62215 M54.5 [facility] CARTER Trujillo M.D. Office Visit 11/09/2015 8:00a [facility] Internal Medicine - Lui Samson, [address] M.DDoug J20.9 Office Visit 11/01/2015 3:00p [facility] Internal Medicine Josh Luna, MICHAELLE [address] R05 Office Visit 09/28/2015 8:00a [facility] Internal Lui Samson, 44324 M51.16 Medicine - [address] M.DDoug S40.021A R53.83 Z23 Office Visit 08/31/2015 7:40a [facility] Internal Lui Samson, 66857 M51.16 Medicine - [address] M.D. Office Visit 08/17/2015 2:20p [facility] Internal Coramdejeay Samson, 28400 M51.16 Medicine - [address] M.D. M25.552 Office Visit 06/04/2015 1:20p [facility] Internal [facility] Alcides Brody M.D. [address] M54.2 M54.5 Office Visit 04/08/2015 9:20a [facility] Internal [facility] Alcides Brody [address] M.D. Office Visit 03/02/2015 9:40a [facility] Internal [facility] Alcides Brody [address] M.D. Office Visit 12/25/2014 4:00p [facility] Internal [facility] Alcides Brody [address] M.D. Office Visit 11/09/2014 10:30a [facility] Kevin Cottrell 39756 724.2 [facility] M.D. Office Visit 09/08/2014 3:40p [facility] Internal [facility] Alcides Brody [address] M.DDoug 535.40 787.20 535.50 Office Visit 08/26/2014 10:00a [facility] Kevin Cottrell M.D. 73962 724.2 [facility] Office Visit 08/25/2014 3:20p [facility] Internal Beba Brody M.D. [address] 787.91 724.2 724.8 Office Visit 08/20/2014 11:20a [facility] Internal Beba Brody M.D. 96591 009.[address] - [address] 276.51 787.91 Office Visit 07/29/2014 10:30a [facility] Kevin Cottrell 79611 724.2 [facility] M.D. Office Visit 06/24/2014 3:30p [facility] Kevin Cottrell 53831 724.2 [facility] M.DDoug Office Visit 06/09/2014 2:40p [facility] Internal [facility] Josh Brody 63930 493.00 Ayla Roberson 784.0 724.5 722.52 Office Visit 04/24/2014 3:00p [facility] Internal [facility] Alcides Brody M.D. 94382 724.5 - [place] 722.91 722.52 Office Visit 03/31/2014 10:20a [facility] Internal Medicine Maurilio Torrez, 48161 719.42 - Ayla Roberson V04.81 Office Visit 03/03/2014 4:00p [facility] Internal Medicine Eusebio Flores, MICHAELLE 95806 465.9 - [place] Office Visit 01/27/2014 11:00a [facility] Internal Medicine Eusebio Flores, MICHAELLE 25414 723.1 - [place] Office Visit 01/06/2014 11:40a [facility] Internal Medicine Johana Ferreira, N.P. 47489 530.81 - [place] Office Visit 10/31/2013 2:00p [facility] Internal Medicine Tarsha Underwood M.D. 73509 V76.2 - [place] V76.10 V70.0 296.31 535.00 V45.86 Office Visit 09/30/2013 10:20a [facility] Internal Medicine Johana Ferreira, N.P. 71248 528.9 - [place] Office Visit 09/12/2013 1:40p [facility] Internal Medicine Tarsha Underwood M.D. 42087 599.70 - [place] 724.5 Office Visit 09/02/2013 11:20a [facility] Internal Medicine Johana Ferreira, N.P. 92071 465.9 - [place] 535.00 724.5 Office Visit 06/27/2013 2:40p [facility] Internal Medicine - Tarsha Underwood M.D. 42604 722.93 [place] 724.5 Office Visit 05/26/2013 3:00p [facility] Internal Medicine - Tarsha Underwood M.D. 74343 722.93 [place] 724.5 Office Visit 03/21/2013 11:40a [facility] Internal Medicine - Tarsha Underwood M.D. 57278 724.5 [place] 599.70 719.45 Office Visit 02/03/2013 9:00a [facility] Internal Medicine - Tarsha Underwood M.D. 48860 296.31 [place] 724.5 Office Visit 12/18/2012 11:20a [facility] Internal Medicine Tarsha Underwood M.D. 96675 724.5 - [place] Office Visit 12/10/2012 3:40p [facility] Internal Medicine Johana Ferreira, N.P. 14482 724.5 - [place] Office Visit 08/30/2012 1:40p [facility] Internal Medicine Tarsha Underwood M.D. 31255 530.12 - [place] 724.5 296.31 626.8 V70.0 Office Visit 08/05/2012 10:40a [facility] Internal Medicine - Tarsha Underwood M.D. 56372 724.5 [place] 296.31 530.12 Office Visit 07/01/2012 2:20p [facility] Internal Medicine - Tarsha Underwood M.D. 87145 724.5 [place] 722.93 Office Visit 05/31/2012 2:20p [facility] Internal Medicine - Tarsha Underwood M.D. 93014 724.5 [place] Office Visit 04/24/2012 10:40a [facility] Internal Medicine - Tarsha Underwood M.D. 27870 722.93 [place] 709.9 Office Visit 04/03/2012 9:20a [facility] Internal Medicine - Tarsha Underwood M.D. 72641 722.93 [place] Office Visit 03/27/2012 12:40p [facility] Internal Medicine - Tarsha Underwood M.D. 85008 724.5 [place] 722.93 Office Visit 03/15/2012 10:40a [facility] Internal Medicine - Tarsha Underwood M.D. 29357 722.93 [place] 724.5 Office Visit 01/31/2012 11:20a [facility] Internal Medicine - Tarsha Underwood M.D. 27803 722.93 [place] 493.90 V45.86 296.31 281.9 Office Visit 01/08/2012 9:40a [facility] Internal Medicine Tarsha Underwood M.D. 53495 782.3 [place] 724.5 493.90 Office Visit 11/17/2011 4:00p [facility] Internal Medicine Tarsha Underwood M.D. 71114 722.93 [place] 724.5 995.3 Office Visit 11/03/2011 12:40p [facility] Internal Medicine Tarsha Underwood M.D. 97313 722.93 [place] Office Visit 10/13/2011 2:00p [facility] Internal Medicine - Tarsha Underwood M.D. 75962 722.93 [place] 724.5 V45.86 Office Visit 09/13/2011 10:40a [facility] Internal Medicine - Tarsha Underwood M.D. 15728 722.93 [place] V45.86 Office Visit 07/28/2011 10:40a [facility] Internal Medicine - Tarsha Underwood M.D. 06652 722.93 [place] 783.1 296.31 789.02 Office Visit 07/11/2011 4:20p [facility] Internal Medicine Johana Ferreira, N.PDoug 67059 724.5 - [place] Office Visit 07/05/2011 1:40p [facility] Internal Medicine Tarsha Underwood M.D. 61496 783.1 - [place] Office Visit 06/23/2011 8:40a [facility] Internal Medicine Tarsha Underwood M.D. 28695 715.11 - [place] Office Visit 06/09/2011 11:00a [facility] Internal Medicine Tarsha Underwood M.D. 99671 296.31 - [place] 719.41 Office Visit 05/10/2011 9:20a DO Not Use [facility]-Ayla Underwood M.D. 24487 296.31 Office Visit 04/26/2011 9:40a DO Not Use [facility]-Ayla Underwood M.D. 22149 296.31 Office Visit 04/12/2011 9:40a DO Not Use [facility]-Ayla Underwood M.D. 08817 281.9 V45.86 733.6 790.6 V02.61 Office Visit 03/29/2011 1:40p [facility] Not Use [facility] 41177 281.9 807.00 296.31 Plan of Care Future Appointment(s):01/28/2018 10:30 am - Corina Constantino PA-C at [facility]02/18/2018 10:00 am - Lui Samson M.D. at [facility] Internal Medicine - [place] 12/25/2017 9:30 am - Quentin Sanders MD at [facility]12/31/2017 10:00 am - Lui Samson M.D. at [facility] Internal Medicine - [address]04/15/2018 9:30 am - Parker Reis M.D. at [facility]12/19/2017 - Kevin Cottrell M.D.M51.36 Other intervertebral disc degeneration, lumbar regionNew Therapy:Physical TherapyFollow up:4 weeks
--- OUTSIDE RECORDS SUMMARY | 2018-01-08 13:46 | XMS REPORT ---
:1960 External Reference #:[id number] Author Organization [facility] Address [address] [place] [address] [place] [address] Phone [phone] Care Team Providers Name Role Phone Lui Samson MD Primary Care Physician Unavailable Payers Type Date Identification Numbers Payment Provider Subscriber Commercial Policy Number: [id number] Agustín Coates Group Number: [id number] [address] PayID: [id number] [place] [address] Commercial Effective: Policy Number: Dennis/[employer] Keena Coates 2012 [id number] Medicaid Expires: 2012 PayID: [id number] [address] [address] [place] [address] Commercial Expires: 2012 Policy Number: [id number] Agustín Coates Group Name: CHAS# [id number] [address] PayID: [id number] [place] [address] Problems Date Description Provider Status Onset: 04/12/2011 [...] Lui Samson M.D. Active Onset: 01/30/2017 Obesity uLi Samson M.D. 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 Handle disease Jobst Trouser 01/07 Active Misc 1Pair 1 pair prn 782.3 Eusebio 8-15MMHG/Knee /2011 to lower [place], APPLICATION SUPPORT TECHNICIAN High/Women/Mediu legs m Citalopram Active Tablets 20mg 30tab 1 every [place]er Hydrobromide / s day Karol Samosn Tylenol PM Extra Active Tablets 500-25mg 1 tab by Unknown Strength /0000 mouth every 6 hours as needed Cyclobenzaprine Active Tablets 10mg 30tab 1 tablet [place] HCL / s by mouth [place], q8 hours M.D. as needed muscle spasms Flovent Diskus Active Aerosol 250mcg/Bl 1 puff Unknown /0000 ist twice a day Fexofenadine HCL 08/01 Hx Tablets 180mg 30tab once daily s [place], - M.D. 11/19 Zolpidem 07/17 Hx Tablets 5mg 30tab 1 tab G47.00 Lui Tartrate s daily at [facility], - bedtime M.D. 11/09 Dulera 07/17 Hx Aerosol 200-5mcg/ 8.800 2 puff J45.909 Act gm twice a [facility], - day M.D. 11/09 Montelukast 07/17 Hx Tablets 10mg 30tab once daily J45.909 [place] Sodium s [place] - M.D. 08/01 Levofloxacin [...] tab G47.00 Lui Tartrate s daily at [facility], - bedtime M.D. 07/17 Zolpidem [...] day Josh Hollingsworth M.D.,[facility] 10/19 Klor-Con 10 10/13 Hx Tablets ER 10Meq 30tab 1 by mouth Alfredo s every day Josh Hollingsworth M.D.,[facility] 02/12 Diclofenac 09/05 Hx Gel 1% 100gm apply 2 M77.11 Hettinger Sodium times [place]ikara, - daily M.D. 10/19 [...] by mouth Alfredo s twice a D. [place], - day for 7 M.D.,FACP Cheratussin ac 06/30 Hx Syrup 100-10mg/ 236ml 10 5ML milliliter Shahnaz Trevizo, - s by mouth M.D.,FACP 10/13 four times a day as needed Pantoprazole 01/[address] 20mg 60tab 1 tab K21.9 [place]er Sodium /2015 s twice a [place], - day M.D. 02/12 Rizatriptan 01/10 Hx Tablets 10mg 12tab use at G43.019 Hettinger Benzoate /2015 s onset of [place], - [...] Hx Tablets 10mg 90tab one by M54.89 [place]tinger HCL /2014 s mouth [place], - three M.D. 10/19 times day as needed spasm Asmanex 06/09 Hx Aerosol 220mcg/In 1unit 1 puff po J45.20 Darin Schreiberhaler 120 /2015 h s bid [place], APPLICATION SUPPORT TECHNICIAN Metered Doses - 11/10 Lasix 05/12 [...] 465.8 Eusebio 12HR s mouth q12 Sandra APPLICATION SUPPORT TECHNICIAN - hours 06/09 Omeprazole 01/06 Hx [...] 2 puffs by e) s mouth Jeremy APPLICATION SUPPORT TECHNICIAN - mcg/Act every 4 10/19 hours needed Cyclobenzaprine 06/27 Hx Tablets 5mg 60tab Take 1-2 722.93 Tarsha s tablets at [place], - night for M.D. 04/24 back pain [...] 30cap Take 1-2 724.5 s tablets at [place], - night M.D. 06/27 Percocet 12/10 Hx [...] every 4-6 11/09 hours needed Imipramine HCL 00/ Hx Tablets 25mg 1 @hs for Unknown /0000 a week - 11/19 Medications Administered in Office Medication Date Status Form Strength Qnty SIG Indications Ordering Provider Triamcinolone 11/20/ Administered Injection Zaneb (Kenalog) 2017 MD Tommy Immunizations CPT Code Status Date Vaccine Lot # [id number] Given 09/28/2015 Pneumonia Vaccine [id number] Given 03/31/2014 Flu Vaccine Split Virus Preservative Free For [id number] Indiv 3Yr Older Vital Signs Date Vital Result Comment 12/17/2017 Height 65 inches 5'5" Weight 220.00 [...] Color Yellow Urine Appearance Clear Urine Specific [place] 1.025 1.010-1.030 Urine pH 5.0 5-9 Urine [...] Color Straw Urine Appearance Clear Urine Specific [place] 1.010 1.010-1.030 Urine pH 7.0 5-9 Urine [...] Color Colorless Urine Appearance Clear Urine Specific [place] 1.004 Low 1.010-1.030 Urine pH 6.0 5-9 [...] Color Straw Urine Appearance Clear Urine Specific [place] 1.012 1.010-1.030 Urine pH 6.0 5-9 Urine [...] 11.27 ng/mL >3.99 Laboratory test 04/14/2015 Cytology Non-Pulp Screen Operator SEE RESULT BELOW 44 finding Laboratory test [...] Color Colorless Urine Appearance Clear Urine Specific [place] 1.017 1.010-1.030 Urine pH 6.0 5-9 Urine [...] Color Straw Urine Appearance Clear Urine Specific [place] 1.011 1.010-1.030 Urine pH 7.0 5-9 Urine [...] 180-914 77 Ua Routine 09/12/2013 Ua Specific [place] 1.020 Ua PH 5 Ua Color yellow [...] Color Yellow Urine Appearance Clear Urine Specific [place] 1.021 1.010-1.030 Urine Esterase 1+ Negative Urine [...] Color Yellow Urine Appearance Clear Urine Specific [place] 1.024 1.010-1.030 Urine Esterase 2+ Negative Urine [...] % 0 Ua Routine 01/31/2012 Ua Specific [place] 1.015 Ua PH 5 Ua Color yellow [...] [address]: Estrellita Newton MD Acct: [id number] Unit: [id number] AGE: 57 Location: ED Re12/05/17 SEX: F Status: DEP ER SPEC: [id number] HASEEB: 12/05/[address]: Davina TSAI REQ: [id number] RECD: 12/05/17 STATUS: CELIA ERNANDEZ DR: [facility] Lui Samson MD _ SOURCE: URINE SPDESC: ORDERED: Urine Culture Procedure Result Reported Site Urine Culture Final 12/07/17- 0833 ML No growth of clinically significant organisms * ML - Main Lab . END OF REPORT DEPARTMENT OF PATHOLOGY, [address] [place] [address] Wayne Duff M.D. Director [facility] # [id number] 2 Because ethnic data is not always [...] 5 Kidney failure <15 (or dialysis) 3 Regional Liaison: [id number] [facility] Severe Sepsis and Septic Shock Management [...] [address]: Maco Nettles MD Acct: [id number] Unit: [id number] AGE: 57 Location: ED Re08/09/17 SEX: F Status: DEP ER SPEC: [id number] HASEEB: 08/09/17-2242 [facility] [address]: Maco Nettles MD REQ: [id number] RECD: 08/09/17 STATUS: CELIA ERNANDEZ DR: Lui Samson MD _ SOURCE: URINE [facility]: ORDERED: Urine Culture Procedure Result Reported Site Urine Culture Final 08/11/17- 0854 ML No Growth (<1,000 CFU/mL) * ML - Main Lab . END OF REPORT DEPARTMENT OF PATHOLOGY, [address] [place] [address] Wayne Duff M.D. Director [facility] # [id number] 11 Because ethnic data is not always [...] 5 Kidney failure <15 (or dialysis) 12 Regional Liaison: [id number] 13 Because ethnic data is not always [...] 130-159 High: 160-189 Very High: >189 18 [facility] Severe Sepsis and Septic Shock Management Bundle [...] 20 99th percentile=0.04 ng/mL Troponin results at [facility] are not interchangeable. 21 Desirable <150 Borderline high 150-199 High 200-499 Very High >500 22 Desirable <200 Borderline high 200-239 High >239 23 Low <40 Desirable: 40-60 High: >60 24 Desirable: <100 mg/dL Near Optimal: 100-129 mg/dL Borderline High: 130-159 mg/dL High: 160-189 mg/dL Very High: >189 mg/dL 25 [id number] 26 Because ethnic data is not always [...] 5 Kidney failure <15 (or dialysis) 27 [id number] 28 [id number] 29 Serologic response to B. burgdorferi infection is not detected, but cannot rule out early infection during which low or undetectable antibody levels to B. burgdorferi may be present. If clinically indicated, a new serum specimen should be submitted in 7-14 days. Lipemic Test Performed by: [address] [address] Director Business Development: Quan Fishman II, M.D., Ph.D. 30 No [...] not reviewed by physician. Test Performed by: [place] [address] Director Business Development: Quan Fishman II, M.D., Ph.D. 31 Test Performed by: [place] [address] Director Business Development: Quan Fishman II, M.D., Ph.D. 32 Result in log IU/mL is Undetected The quantification range of this assay is 20 IU/mL to 170,000,000 IU/mL (1.30 log IU/mL to 8.23 log IU/mL). Testing was performed by the CAROL AmpliPrep/CAROL TaqMan HBV test, version 2.0 ([employer] Test Performed by: [place] [address] Director Business Development: Quan Fishman II, M.D., Ph.D. 33 Test Performed by: [place] [address] Director Business Development: Quan Fishman II, M.D., Ph.D. 34 If clinically indicated, testing for Hepatitis B Core IgM antibody is necessary to differentiate between acute and past HBV infection. Test Performed by: [place] [address] Director Business Development: Quan Fishman II, M.D., Ph.D. 35 [id number] 36 This assay does not differentiate between reactivity due to a vaccine-induced immune response or an immune response induced by infection with HBV. 37 [id number] 38 SEE RESULT BELOW Name: KEENA COATES : [address]: Kevin Boyd MD Acct: [id number] Unit: [id number] AGE: 55 Location: [facility] Re01/01/16 SEX: F Status: DEP ER SPEC: [id number] HASEEB: 01/01/16-175 [facility] [address]: Sara Palacio NP REQ: [id number] RECD: 01/02/16-1306 STATUS: CELIA ERNANDEZ DR: [facility] Lui Samson MD _ SOURCE: URINE SPDESC: ORDERED: Urine Culture COMMENTS: [id number] Procedure Result Reported Site Urine Culture Final 01/03/16- 1457 ML No Growth (<1,000 CFU/mL) * ML - MAIN LAB ([facility]) . END OF REPORT * ML=Testing performed at Main Lab DEPARTMENT OF PATHOLOGY, [address] [place] [address] Wayne Duff M.D. Director [facility] # [id number] 39 [facility] Severe Sepsis and Septic Shock Management Bundle Measure requires all lactic acids initially measuring >2.0 mmol/L be repeated. 40 Reference Range and Interpretation: TnI (ng/mL) Interpretation Less Than 0.03 ng/mL Not supportive of diagnosis of OR 0.03 - 0.50 ng/mL Indeterminate: suggest serial studies if clinically indicated. Greater than 0.5 ng/mL Consistent with diagnosis of OR 41 Because ethnic data is not always [...] Range <145 44 SEE RESULT BELOW Name: LILIAKEENA M : [address]: Dwight Brown MD Acct: [id number] Unit: [id number] AGE: 55 Location: LAB Re04/14/15 SEX: F Status: REG REF SPEC: [id number] HASEEB: 04/14/1552 [facility] [address]: Dwight Brown MD REQ: [id number] RECD: 04/14/15 STATUS: SULTANA ERNANDEZ DR: Alcides Brody MD _ ORDERED: THIN PREP NON G FINAL DIAGNOSIS Urine, voided: Negative for malignant cells. URINE VOID CLINICAL HISTORY Gross hematuria GROSS DESCRIPTION 5 mls of cloudy peach colored urine. Signed (signature on file) Wayne Duff MD [id number] END OF REPORT * ML=Testing performed at Main Lab DEPARTMENT OF PATHOLOGY, [address] [place] [address] Wayne Duff M.D. Director [facility] # [id number] 45 Because ethnic data is not always [...] 47 SEE RESULT BELOW Name: KEENA COATES Deanne : [address]: Eusebio Matute MD Acct: [id number] Unit: [id number] AGE: 54 Location: ED Re12/23/14 SEX: F Status: DEP ER SPEC: [id number] HASEEB: 12/24/14 [facility] [address]: Gene Godoy DO REQ: [id number] RECD: 12/24/14 STATUS: CELIA ERNANDEZ DR: Alcides Brody MD _ SOURCE: URINE [facility]: ORDERED: Urine Culture Procedure Result Verified Site Urine Culture Final 12/26/14- 1034 ML Organism 1 NORMAL CHAVEZ [place] Count 25-50,000 (Moderate) CFU/ML * ML - MAIN LAB ([facility]) . END OF REPORT * ML=Testing performed at Main Lab DEPARTMENT OF PATHOLOGY, [address] [place] [address] Wayne Duff M.D. Director [facility] # [id number] SEE RESULT BELOW Name: KEENA COATES : [address]: Eusebio Garcia MD Acct: [id number] Unit: [id number] AGE: 54 Location: [facility] Re12/23/14 SEX: F Status: DEP ER SPEC: [id number] HASEEB: 12/23/14-2034 [facility] [address]: Eusebio Garcia MD REQ: [id number] RECD: 12/24/14 STATUS: CELIA ERNANDEZ DR: [facility] Alcides Brody MD _ SOURCE: THROAT SPDESC: ORDERED: Throat Beta Str Procedure Result Verified Site Throat Beta Strep Culture Final 12/26/14- 0850 ML Negative For Group A Beta Streptococcus * ML - MAIN LAB ([facility]) . END OF REPORT * ML=Testing performed at Main Lab DEPARTMENT OF PATHOLOGY, [facility] [employer] [place], [place] [address] Wayne Duff M.D. Director [place] # [id number] RUN DATE: 09/16/14 [facility] LAB LIVE PAGE 1 RUN TIME: 825 [facility] [employer] [place], [place] [address] Specimen Inquiry Name: KEENA COATES : [address]: Quan Guerrero MD Acct: [id number] Unit: [id number] AGE: 54 Location: ED Re09/14/14 SEX: F Status: DEP ER SPEC: [id number] HASEEB: 09/14/14-1820 [facility] [address]: Quan Guerrero MD REQ: [id number] RECD: 09/14/14 STATUS: CELIA ERNANDEZ DR: Alcides Brody MD _ [facility] ORDERED: Urine Culture Procedure Result Verified Site Urine Culture Final 09/16/14- 825 ML Organism 1 NORMAL CHAVEZ [place] Count 10-25,000 (Moderate) CFU/ML * ML - MAIN LAB ([facility]) . END OF REPORT * ML=Testing performed at Main Lab DEPARTMENT OF PATHOLOGY, [address] [place] [address] Wayne Duff M.D. Director [facility] # [id number] 50 Please note: The following may produce [...] 0.03 ng/mL Not supportive of diagnosis of OR 0.03 - 0.50 ng/mL Indeterminate: suggest serial studies if clinically indicated. Greater than 0.5 ng/mL Consistent with diagnosis of OR 54 Acute inflammation: >10.00 55 Because ethnic [...] of <18.00 are negative. Test Performed by: [facility] [place] [address] Director Business Development: Quan Fishman II, M.D., Ph.D. 58 Results with Index Values of <8.95 are negative. Test Performed by: [facility] - [address] [address] Director Business Development: Quan Fishman II, M.D., Ph.D. 59 Results with Index Values of <36.00 are negative. Test Performed by: [facility] - [address] [address] Director Business Development: Quan Fishman II, M.D., Ph.D. 60 RUN DATE: 08/21/14 [facility] LAB LIVE PAGE 1 RUN TIME: [address] [place] [address] Specimen Inquiry Name: KEENA COATES : [address]: Alcides Brody MD Acct: [id number] Unit: [id number] AGE: 54 Location: [facility] Re08/21/14 SEX: F Status: REG REF SPEC: [id number] HASEEB: 08/21/14-[address]30 [facility] [address]: Alcides Brody MD REQ: [id number] RECD: 08/21/14 STATUS: RES _ SOURCE: STOOL SPDESC: ORDERED: E.coli O157:H7, Stool Culture, C. diff Amp DNA, O P (Full) QUERIES: Provider Requisition # [id number] Procedure Result Verified Site E.coli O157:H7 Culture [...] performed at Main Lab DEPARTMENT OF PATHOLOGY, [address] [place] [address] Wayne Duff M.D. Director [facility] # [id number] RUN DATE: 08/21/14 [facility] LAB LIVE PAGE 2 RUN TIME: [address] [place] [address] Specimen Inquiry Patient: KEENA COATES [id number] (Continued) Specimen: [id number] Collected: 08/21/14-1029 Received: 08/21/14-1056 (Continued) Procedure Result [...] Full PENDING * ML - MAIN LAB ([facility]) . END OF REPORT * ML=Testing performed at Main Lab DEPARTMENT OF PATHOLOGY, [address] [place] [address] Wayne Duff M.D. Director [facility] # [id number] 61 REFERENCE RANGE: NOT DETECTED The Entamoeba histolytica antigen EIA test detects only the antigen of the pathogenic E. histolytica; the non-pathogenic E. dispar is not detected. Test Performed by: [employer] [place] [address] [place] [address] 62 RUN DATE: 08/23/14 [facility] LAB LIVE PAGE 1 RUN TIME: [address] [place] [address] Specimen Inquiry Name: KEENA COATES : [address]: Alcides Brody MD Acct: [id number] Unit: [id number] AGE: 54 Location: [facility] Re08/21/14 SEX: F Status: REG REF SPEC: [id number] HASEEB: 08/21/[address] [facility] [address]: Alcides Brody MD REQ: [id number] RECD: 08/21/14 STATUS: RES _ [facility] ORDERED: E.coli O157:H7, Stool Culture, C. tanner Amp DNA, O P (Full) QUERIES: Provider Requisition # [id number] Procedure Result Verified Site E.coli O157:H7 Culture [...] performed at Main Lab DEPARTMENT OF PATHOLOGY, [address] [place] [address] Wayne Duff M.D. Director [facility] # [id number] RUN DATE: 08/23/14 [facility] LAB LIVE PAGE 2 RUN TIME: [address] [place] [address] Specimen Inquiry Patient: KEENA COATES [id number] (Continued) Specimen: [id number] Collected: 08/21/14 Received: 08/21/14-1056 (Continued) Procedure Result [...] Full PENDING * ML - MAIN LAB ([facility]) . END OF REPORT * ML=Testing performed at Main Lab DEPARTMENT OF PATHOLOGY, [facility] [employer] [place], [place] [address] Wayne Duff M.D. Director [facility] # [id number] RUN DATE: 08/25/14 [facility] LAB LIVE PAGE 1 RUN TIME: 1606 [facility] [employer] [place], [place] [address] Specimen Inquiry Name: KEENA COATES : [address]: Alcides Brody MD Acct: [id number] Unit: [id number] AGE: 54 Location: [facility] Re08/21/14 SEX: F Status: REG REF SPEC: [id number] HASEEB: 08/21/14-[address]: Alcides Brody MD REQ: [id number] RECD: 08/21/14 STATUS: COMP _ SOURCE: STOOL SPDESC: ORDERED: E.coli O157:H7, Stool Culture, C. diff Amp DNA, O P (Full) QUERIES: Provider Requisition # [id number] Procedure Result Verified Site E.coli O157:H7 Culture [...] Main Lab DEPARTMENT OF PATHOLOGY, [facility] [employer] [place] [address] Wayne Duff M.D. Director [facility] # [id number] RUN DATE: 08/25/14 [facility] LAB LIVE PAGE 2 RUN TIME: [address] [place] [address] Specimen Inquiry Patient: LILIAKEENA [id number] (Continued) Specimen: [id number] Collected: 08/21/14-0 Received: 08/21/14-1056 (Continued) Procedure Result [...] performed at Main Lab DEPARTMENT OF PATHOLOGY, [address] [place] [address] Wayne Duff M.D. Director [facility] # [id number] RUN DATE: 08/25/14 [facility] LAB LIVE PAGE 3 RUN TIME: [address] [place], [place] [address] Specimen Inquiry Patient: KEENA COATES [id number] (Continued) Specimen: [id number] Collected: 08/21/14-1029 Received: 08/21/14-1056 (Continued) Procedure Result Verified Site Ova Parasite Concen Full Final (continued) 08/25/14- 1608 Final Result No Ova Parasites seen by Ethyl Acetate Concentration No Cysts or Trophs Seen on Trichrome smear * ML - MAIN LAB ([facility]) . END OF REPORT * ML=Testing performed at Main Lab DEPARTMENT OF PATHOLOGY, [facility] [employer] [place] [address] Wayne Duff M.D. Director CLIA # [id number] RUN DATE: 08/24/14 [facility] LAB LIVE PAGE 1 RUN TIME: 1112 [facility] [employer] [place], [place] [address] Specimen Inquiry Name: KEENA COATES : [address]: Alcides Brody MD Acct: [id number] Unit: [id number] AGE: 54 Location: [facility] Re08/21/14 SEX: F Status: REG REF SPEC: [id number] HASEEB: 08/21/14-[address]29 [facility] [address]: Alcides Brody MD REQ: [id number] RECD: 08/21/14 STATUS: RES _ SOURCE: STOOL SPDESC: ORDERED: E.coli O157:H7, Stool Culture, C. diff Amp DNA, O P (Full) QUERIES: Provider Requisition # [id number] Procedure Result Verified Site E.coli O157:H7 Culture [...] performed at Main Lab DEPARTMENT OF PATHOLOGY, [address] [place] [address] Wayne Duff M.D. Director [facility] # [id number] RUN DATE: 08/24/14 [facility] LAB LIVE PAGE 2 RUN TIME: [address] [place] [address] Specimen Inquiry Patient: KEENA COATES [id number] (Continued) Specimen: [id number] Collected: 08/21/14-1029 Received: 08/21/14-1056 (Continued) Procedure Result [...] Full PENDING * ML - MAIN LAB ([facility]) . END OF REPORT * ML=Testing performed at Main Lab DEPARTMENT OF PATHOLOGY, [address] [place] [address] Wayne Duff M.D. Director [facility] # [id number] 65 Effective July 17, 2014 at 12:00pm [...] <15 (or dialysis) 74 RUN DATE: 11/03/13 [facility] LAB LIVE PAGE 1 RUN TIME: [address] [place], [place] [address] Specimen Inquiry Name: KEENA COATES : [address]: Tarsha Underwood MD Acct: [id number] Unit: [id number] AGE: 53 Location: [facility] Re10/31/13 SEX: F Status: REG REF SPEC: [id number] HASEEB: 10/31/[address]: Tarsha Underwood MD REQ: [id number] RECD: 10/31/13 STATUS: SOUT _ ORDERED: IMAGE ANALYSIS, HPV/Thin Prep FINAL DIAGNOSIS Negative for Intraepithelial lesion or Malignancy COMMENTS: Specimen sent to [facility] in [place], [place] on 11/03/13 by [id number] at 1220. Results will be reported separately. [...] was evaluated with the assistance of the [employer] Test Imaging System. Due to cytologic findings at the parquetry layer microscope, comprehensive manual rescreening by a Purchase Request Editor may be required. The Pap Smear is [...] performed at Main Lab DEPARTMENT OF PATHOLOGY, [address] [place] [address] Wayne Duff M.D. Director [facility] # [id number] RESULT: Ectocervical/Endocervical 76 The following Other High Risk HPV types were not detected: 31, 33, 35, 39, 45, 51, 52, 56, 58, 59, 66, and 68 Test Performed by: [place] [address] Director Business Development: Jorge Luis Ruiz III, M.D. 77 Normal [...] <15 (or dialysis) 79 RUN DATE: 09/08/13 [facility] LAB LIVE PAGE 1 RUN TIME: [address] [place] [address] Specimen Inquiry Name: KEENA COATES : [address]: Vasyl Richards MD Acct: [id number] Unit: [id number] AGE: 53 Location: ED Re09/06/13 SEX: F Status: DEP ER SPEC: [id number] HASEEB: 09/06/[address]: Patrizia TSAI REQ: [id number] RECD: 09/06/13 STATUS: CELIA ERNANDEZ DR: Vasyl Underwood MD _ SOURCE: URINE SPDESC: ORDERED: Urine Culture Procedure Result Verified Site Urine Culture Final 09/08/13- 0940 ML Organism 1 NORMAL CHAVEZ [place] Count 1-10,000 (Few) CFU/ML END OF REPORT * ML=Testing performed at Main Lab DEPARTMENT OF PATHOLOGY, [address] [place] [address] Wayne Duff M.D. Director [facility] Permit #[id number] FASTING 81 Normal Range 180 to 914 Indeterminate Range 145 to 180 Deficient Range <145 82 -- REFERENCE VALUE -- 25-HYDROXY D TOTAL (D2+D3) Optimum levels in the healthy population are 20-50, patients with bone disease may benefit from higher levels within this range. Test Performed by: [facility] - [address] [address] Director Business Development: Jorge Luis Ruiz III, M.D. 83 Desirable <150 Borderline high 150-199 High 200-499 Very High >500 84 Desirable <200 Borderline high 200-239 High >239 85 Low <40 Desirable: 40-60 High: >60 86 Desirable <100 Near Optimal 100-129 Borderline high 130-159 High 160-189 Very High >189 87 FASTING 88 FASTING 89 2+ (>10-30 /hpf) 90 RUN DATE: 03/23/13 [facility] LAB LIVE PAGE 1 RUN TIME: 7414 [address] [facility], [place], [place] [address] Specimen Inquiry Name: KEENA COATES : [address]: Tez ROONEY Acct: [id number] Unit: [id number] AGE: 53 Location: LAB Re03/21/13 SEX: F Status: REG REF SPEC: [id number] HASEEB: 03/21/13-[address]: Tez COWAN REQ: [id number] RECD: 03/21/13 STATUS: COMP AWAIS DR: Tarsha Underwood MD _ SOURCE: URINE SPDESC: ORDERED: Urine Culture Procedure Result Verified Site Urine Culture Final 03/23/13- 0857 ML Organism 1 NORMAL CHAVEZ [place] Count 75-100,000 (Many) CFU/ML END OF REPORT * ML=Testing performed at Main Lab DEPARTMENT OF PATHOLOGY, [address] [place] [address] Wayne Duff M.D. Director [facility] Permit #[id number] Dipstick not performed due to tech [...] normal population are 25-80 Test Performed by: [facility] [address] [address] Director Business Development: Jorge Luis Ruiz III, M.D. 98 Recommended [...] and past HBV infection. Test Performed by: [facility] Dpt of Lab Med and Pathology [address] [place] [address] Director Business Development: Jorge Luis Ruiz III, M.D. 10 Test Performed by: 4 [facility] Dpt of Lab Med and Pathology [address] [place] [address] Director Business Development: Jorge Luis Ruiz III, M.D. 10 Anion [...] normal population are 25-80 Test Performed by: [facility] Dpt of Lab Med and Pathology [address] [place], [place] [id number] Director Business Development: Jorge Luis Ruiz III, M.D. Procedures Date CPT Code Description Status Comment 11/20/2017 88716 Inject/Drain Joint/Bursa Completed Major W/O US 11/07/2017 37503 EEG Recording Awake & Drowsy Completed 11/07/2017 08160 ECHO Transthorasic Realtime Completed 2D W Doppler & Color Flow Hosp 03/12/2017 Mammogram Completed 12/21/2015 Mammogram Completed 12/15/2014 Mammogram Completed 02/17/2014 Colonoscopy Completed 11/18/2013 Mammogram Completed 01/31/2012 72394 EKG Tracing & Interpretation Completed 12/26/2011 Mammogram Completed 08/24/[address] Encinas, 2 hyperplastic polyps per [facility] Encounters Type Date Location Provider CPT E/M Dx Office Visit 11/20/2017 9:30a [facility] [address] M54.2 C.[facility].A. S46.012D M19.212 S46.012A Office Visit 11/19/2017 10:00a Neurosurgery Services Corina Constantino PA-C 25796 M25.512 Of [facility] M54.16 Office Visit 11/19/2017 8:00a [facility] Internal Lui Samson M.D. 38963 R41.0 Medicine - [address] M54.2 M25.512 Office Visit 11/07/2017 7:00a [facility] [address] R40.4 R41.0 Office Visit 11/07/2017 1:09p [facility],elizabeth Lopez 95146 R41.0 Hospitalists Karol R51 R07.9 Office Visit 11/06/2017 1:08p [facility],[place] [address] R41.0 Hospitalists R51 Office Visit 11/01/2017 1:40p [facility] Internal Lui Samson 91900 M51.16 [facility] - [place] Selvin Roberson M54.2 M25.512 Office Visit 10/24/2017 2:40p [facility] Internal Medicine Lui Samson 89888 M54.2 - Ayla Roberson M25.512 Office Visit 10/17/2017 11:30a [facility] [address] G43.009 R94.02 M54.2 R20.0 Office Visit 08/14/2017 11:00a [facility] Internal Lui Samson, 49747 J45.909 Medicine - [address] Karol K21.9 Office Visit 07/17/2017 8:40a [facility] Internal Lui Samson, 52447 J45.909 Medicine - [address] Karol G47.00 K21.9 Office Visit 07/02/2017 9:45a [facility] [place], [address] Z98.84 [facility] FACS K21.9 Office Visit 04/10/2017 8:00a [facility] Internal Lui Samson M.D. 02086 J06.9 Medicine - [address] M25.571 Office Visit 03/27/2017 2:40p [facility] Internal Lui Samson, 53978 Z01.818 Medicine - [place] Selvin Roberson N90.3 J06.9 Office Visit 02/13/2017 11:30a [facility] [address] G43.009 R94.02 R42 R13.10 Office Visit 01/30/2017 11:20a [facility] Internal Beba Samson M.D. 62455 I[address] - [address] K21.9 J45.909 E66.9 G47.00 Office Visit 11/03/2016 11:00a [facility] [place] [address] R94.02 Services Of [facility] R42 Office Visit 10/17/2016 9:00a [facility] Internal Lui Samson, 03623 Z00.00 Medicine - [place] Selvin Roberson E78.2 R31.9 E87.6 Office Visit 10/13/2016 2:00p [facility] Internal Alfredo Trevizo, 08782 R94.02 Medicine - [place]vin Roberson,FACP H81.399 E87.6 Office Visit 10/09/2016 1:20p [facility] Gayatri Samson M.D. 35051 G45.9 Medicine - [address] I10 K21.9 Office Visit 09/05/2016 8:20a [facility] Internal Lui Samson, 30244 M77.11 Medicine - [address] M.DDoug M25.512 K21.9 J45.909 Office Visit 07/05/2016 9:20a [facility] Internal Medicine - Darin Luna, MICHAELLE [address] M77.9 Office Visit 07/03/2016 9:00a [facility] [place] [address] Z98.84 Grounds/Maintenance Specialist K21.9 Office Visit 06/30/2016 2:40p [facility] Internal Alfredo Trevizo, 87093 J45.41 Medicine - [address] M.DDoug,FACP Office Visit 01/11/2016 7:40a [facility] Internal Lui Samson, 95377 K21.9 Medicine - [address] M.DDoug R31.9 D69.6 R94.5 G43.019 Office Visit 12/10/2015 2:20p [facility] Internal Medicine - Darin Luna, MICHAELLE [address] Office Visit 12/03/2015 10:45a [facility] Kevin Cottrell, 08520 M54.5 Of [facility] AT Ronnie Roberson Office Visit 11/09/2015 8:00a [facility] Internal Medicine - Lui Samson, [address] M.Shahnaz J20.9 Office Visit 11/01/2015 3:00p [facility] Internal Medicine - Darin Luna, MICHAELLE [address] R05 Office Visit 09/28/2015 8:00a [facility] Internal Lui Samson, 56481 M51.16 Medicine - [address] M.DDoug S40.021A R53.83 Z23 Office Visit 08/31/2015 7:40a [facility] Internal Lui Samson, 22928 M51.16 Medicine - [address] M.D. Office Visit 08/17/2015 2:20p [facility] Internal Lui Samson, 08408 M51.16 Medicine - [address] M.DDoug M25.552 Office Visit 06/04/2015 1:20p [facility] Internal Medicine - Alcides Brody M.D. [address] M54.2 M54.5 Office Visit 04/08/2015 9:20a [facility] Internal Medicine Alcides Brody, [address] M.D. Office Visit 03/02/2015 9:40a [facility] Internal [facility] Alcides Brody, [address] M.D. Office Visit 12/25/2014 4:00p [facility] Internal [facility] Josh Brody, [address] M.D. Office Visit 11/09/2014 10:30a [facility]surgery Services Kevin Cottrell 98579 724.2 Of [facility] M.D. Office Visit 09/08/2014 3:40p [facility] Internal [facility] Josh Brody [address] M.D. 535.40 787.20 535.50 Office Visit 08/26/2014 10:00a [facility] Kevin Cottrell M.D. 29923 724.2 Of [facility] Office Visit 08/25/2014 3:20p [facility] Internal Beba Brody M.D. [address] 787.91 724.2 724.8 Office Visit 08/20/2014 11:20a [facility] Internal Beba Brody M.D. 90114 009.3 - [address] 276.51 787.91 Office Visit 07/29/2014 10:30a [facility] Kevin Cottrell 22130 724.2 Of [facility] M.D. Office Visit 06/24/2014 3:30p [facility] Kevin Cottrell 96172 724.2 Of [facility] M.D. Office Visit 06/09/2014 2:40p [facility] Internal Medicine Josh Brody, 82250 493.00 Ayla Roberson 784.0 724.5 722.52 Office Visit 04/24/2014 3:00p [facility] Internal Medicine Alcides Brody M.D. 92201 724.5 - Ayla 722.91 722.52 Office Visit 03/31/2014 10:20a [facility] Internal Medicine Maurilio Torrez, 09735 719.42 - [place] Roberson V04.81 Office Visit 03/03/2014 4:00p [facility] Internal Medicine Eusebio Flores, MICHAELLE 23291 465.9 - [place] Office Visit 01/27/2014 11:00a [facility] Internal Medicine Eusebio Flores, MICHAELEL 46449 723.1 - [place] Office Visit 01/06/2014 11:40a [facility] Internal Medicine Johana Ferreira N.P. 61927 530.81 - [place] Office Visit 10/31/2013 2:00p [facility] Internal Medicine Tarsha Underwood M.D. 86410 V76.2 - [place] V76.10 V70.0 296.31 535.00 V45.86 Office Visit 09/30/2013 10:20a [facility] Internal Medicine Johana Ferreira N.P. 14942 528.9 - [place] Office Visit 09/12/2013 1:40p [facility] Internal Medicine Tarsha Underwood M.D. 05688 599.70 - [place] 724.5 Office Visit 09/02/2013 11:20a [facility] Internal Medicine Johana Ferreira N.P. 67203 465.9 - [place] 535.00 724.5 Office Visit 06/27/2013 2:40p [facility] Internal Medicine - Tarsha Underwood M.D. 55560 722.93 [place] 724.5 Office Visit 05/26/2013 3:00p [facility] Internal Medicine - Tarsha Underwood M.D. 08511 722.93 [place] 724.5 Office Visit 03/21/2013 11:40a [facility] Internal Medicine - Tarsha Underwood M.D. 16708 724.5 [place] 599.70 719.45 Office Visit 02/03/2013 9:00a [facility] Internal Medicine - Tarsha Underwood M.D. 56518 296.31 [place] 724.5 Office Visit 12/18/2012 11:20a [facility] Internal Medicine Trasha Underwood M.D. 38111 724.5 - [place] Office Visit 12/10/2012 3:40p [facility] Internal Medicine Johana Ferreira N.P. 08649 724.5 - [place] Office Visit 08/30/2012 1:40p [facility] Internal Medicine Tarsha Underwood M.D. 02170 530.12 - [place] 724.5 296.31 626.8 V70.0 Office Visit 08/05/2012 10:40a [facility] Internal Medicine - Tarsha Underwood M.D. 03740 724.5 [place] 296.31 530.12 Office Visit 07/01/2012 2:20p [facility] Internal Medicine Tarsha Underwood M.D. 64552 724.5 [place] 722.93 Office Visit 05/31/2012 2:20p [facility] Internal Medicine Tarsha Underwood M.D. 01530 724.5 [place] Office Visit 04/24/2012 10:40a [facility] Internal Medicine Tarsha Underwood M.D. 07075 722.93 [place] 709.9 Office Visit 04/03/2012 9:20a [facility] Internal Medicine Tarsha Underwood M.D. 52280 722.93 [place] Office Visit 03/27/2012 12:40p [facility] Internal [facility] Tarsha Underwood M.D. 43141 724.5 [place] 722.93 Office Visit 03/15/2012 10:40a [facility] Internal Medicine Tarsha Underwood M.D. 17196 722.93 [place] 724.5 Office Visit 01/31/2012 11:20a [facility] Internal [facility] Tarsha Underwood M.D. 45211 722.93 [place] 493.90 V45.86 296.31 281.9 Office Visit 01/08/2012 9:40a [facility] Internal [facility] Tarsha Underwood M.D. 95792 782.3 [place] 724.5 493.90 Office Visit 11/17/2011 4:00p [facility] Internal Medicine Tarsha Underwood M.D. 76935 722.93 [place] 724.5 995.3 Office Visit 11/03/2011 12:40p [facility] Internal [facility] Josh Underwood M.D. 14633 722.93 [place] Office Visit 10/13/2011 2:00p [facility] Internal Medicine Tarsha Underwood M.D. 20399 722.93 [place] 724.5 V45.86 Office Visit 09/13/2011 10:40a [facility] Internal Medicine Tarsha Underwood M.D. 78208 722.93 [place] V45.86 Office Visit 07/28/2011 10:40a [facility] Internal Medicine - Tarsha Underwood M.D. 42443 722.93 [place] 783.1 296.31 789.02 Office Visit 07/11/2011 4:20p [facility] Internal Medicine Johana Jhon, N.P. 35218 724.5 - [place] Office Visit 07/05/2011 1:40p [facility] Internal Medicine Tarsha Underwood M.D. 46896 783.1 - [place] Office Visit 06/23/2011 8:40a [facility] Internal Medicine Tarsha Underwood M.D. 03812 715.11 - [place] Office Visit 06/09/2011 11:00a [facility] Internal Medicine Tarsha Underwood M.D. 72531 296.31 - [place] 719.41 Office Visit 05/10/2011 9:20a DO Not Use Grounds/Maintenance Specialist-Ayla Underwood M.D. 36874 296.31 Office Visit 04/26/2011 9:40a DO Not Use Grounds/Maintenance Specialist-[place] Tarsha Underwood M.D. 72574 296.31 Office Visit 04/12/2011 9:40a DO Not Use Grounds/Maintenance Specialist-[place] Tarsha Underwood M.D. 57845 281.9 V45.86 733.6 790.6 V02.61 Office Visit 03/29/2011 1:40p DO Not Use Grounds/Maintenance Specialist-Ayla Underwood M.D. 75360 281.9 807.00 296.31 Plan of Care Future Appointment(s):12/19/2017 3:40 pm - Kevin Cottrell M.D. at [facility]02/18/2018 10:00 am - Lui Samson M.D. at [facility] Internal Medicine - [place] 12/25/2017 9:30 am - Quentin Sanders MD at [facility]12/31/2017 10:00 am - Lui Samson M.D. at [facility] Internal Medicine - [address]04/15/2018 9:30 am - Parker Reis M.D. at [facility]12/17/2017 - Lui Samson M.D.M51.16 Intervertebral disc disorders w radiculopathy, lumbar regionComments:Need to call Dr Radford's office for f/uFollow up:2 orovfcW48.00 Insomnia, unspecifiedReferral:[facility], Sleep Disord,Diag/Clinic
--- NOTE | 2018-01-08 13:56 | RAD ---
HISTORY: headache COMPARISONS: November 06, 2017 TECHNIQUE: Multiple contiguous axial CT scans were obtained of the head without intravenous contrast. FINDINGS: HEMORRHAGE/INFARCT: There is no hemorrhage or acute infarct. MASSES/SHIFT: There is no mass or shift. EXTRA-AXIAL SPACES: There are no extra-axial fluid collections. SULCI AND VENTRICLES: The sulci and ventricles are normal in size and position for the patient's stated age. CEREBRUM: There are no focal parenchymal abnormalities. BRAINSTEM: There are no focal parenchymal abnormalities. CEREBELLUM: There are no focal parenchymal abnormalities. VESSELS: The vessels are grossly normal. PARANASAL SINUSES: The paranasal sinuses are clear. ORBITS: The orbits are unremarkable. BONES AND SOFT TISSUE: No bone or soft tissue abnormalities are noted. OTHER: None IMPRESSION: NO ACUTE INTRACRANIAL PATHOLOGY.
[2018-01-08 14:55] LABS: ABS Basophils 0.1 10^3/ul (0-0.2); ABS Eosinophils 0.1 10^3/ul (0-0.6); ABS Lymphocytes 1.5 10^3/ul (1.0-4.8); ABS Monocytes 0.5 10^3/ul (0-0.8); ABS Neutrophils 2.2 10^3/ul (1.5-7.7); ABS Nucleated RBC 0 10^3/ul; Eosinophil % 2.7 % (0-6); Hematocrit 38 % (35-47); Hemoglobin 13.1 g/dl (12.0-16.0); Lymphocyte % 33.6 % (25-47); Mean Corpuscular HGB Conc 34 g/dl (31-36); Mean Corpuscular Hemoglobin 32 pg (27-31); Mean Corpuscular Volume 94 fL (80-97); Mean Platelet Volume 9.6 um3 (7.4-10.4); Nucleated Red Blood Cells % 0.2; Platelet Count 185 10^3/ul (150-450); Red Cell Distribution Width 14 % (10.5-15); White Blood Count 4.4 10^3/ul (3.5-10.8)
[2018-01-08 15:14] LABS: Urine Appearance Cloudy; Urine Blood 1+ (Negative); Urine Color Yellow; Urine Ketones Negative (Negative); Urine Protein Negative (Negative); Urine Red Blood Cell 2+(6-10/hpf) (Absent); Urine Specific Gravity 1.006 (1.010-1.030); Urine Urobilinogen Negative (Negative); Urine White Blood Cell 1+(6-10/hpf) (Absent)
[2018-01-08 15:25] LABS: EGFR Non-African American 71.1 (>60)
[2018-01-08 16:10] VITALS: BP 99/61
== END 2018-01-08 16:08 | disposition home or self-care (01) ==
LOC: ED 12:43
DX: G43.909 Migraine, unspecified, not intractable, without status migrainosus (principal); F41.9 Anxiety disorder, unspecified; Z79.899 Other long term (current) drug therapy; Z88.5 Allergy status to narcotic agent; Z88.0 Allergy status to penicillin; Z88.3 Allergy status to other anti-infective agents
CPT/HCPCS: 36415; 70450; 80053; 81003; 81015; 85025; 87086; 96361; 96374; 96375; 99283; J0780; J1100; J1200; J1885; J2765

== ENCOUNTER 2018-07-07 21:41 | Emergency (ER) | payer OTHER ==
[2018-07-07] MEDS ORDERED: Albuterol/Ipratropium NEB.SOL* Albuterol 2.5 MG/Ipratropium 0.5 MG 3 ML INH ONE (23:28)
[2018-07-07] MEDS ORDERED: NS 0.9% 1000 ML** 1,000 ML IV ONE (23:28)
[2018-07-07 23:58] LABS: ABS Basophils 0 10^3/ul (0-0.2); ABS Eosinophils 0 10^3/ul (0-0.6); ABS Lymphocytes 1.2 10^3/ul (1.0-4.8); ABS Monocytes 0.6 10^3/ul (0-0.8); ABS Neutrophils 2.3 10^3/ul (1.5-7.7); ABS Nucleated RBC 0 10^3/ul; Eosinophil % 0.5 %; Hematocrit 43 % (35-47); Hemoglobin 14.7 g/dl (12.0-16.0); Lymphocyte % 27.7 %; Mean Corpuscular HGB Conc 34 g/dl (31-36); Mean Corpuscular Hemoglobin 32 pg (27-31); Mean Corpuscular Volume 93 fL (80-97); Mean Platelet Volume 9.3 fL (7.4-10.4); Nucleated Red Blood Cells % 0.1; Platelet Count 232 10^3/ul (150-450); Red Blood Count 4.58 10^6/ul (4.00-5.40); Red Cell Distribution Width 14 % (10.5-15); White Blood Count 4.2 10^3/ul (3.5-10.8)
[2018-07-08 00:02] LABS: Urine Appearance Cloudy; Urine Bacteria Absent (Absent); Urine Bilirubin Negative (Negative); Urine Blood 2+ (Negative); Urine Color Yellow; Urine Glucose Negative (Negative); Urine Ketones Negative (Negative); Urine Nitrite Negative (Negative); Urine Protein Negative (Negative); Urine Red Blood Cell 2+(6-10/hpf) (Absent); Urine Squamous Epithelial Cell Present (Absent); Urine Urobilinogen Negative (Negative); Urine White Blood Cell Trace(0-5/hpf) (Absent)
[2018-07-08 00:05] LABS: Influenza A Molecular POSITIVE (Negative)
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
[2018-07-08] MEDS ORDERED: Acetaminophen TAB* 325 MG PO ONE (00:13)
[2018-07-08 00:14] LABS: Albumin 4.2 g/dL (3.2-5.2); Albumin/Globulin Ratio 1.3 (1-3); BUN/Creatinine Ratio 29.9 (8-20); C Reactive Protein 5.23 mg/L (<8.01); EGFR African American 109.8 (>60); EGFR Non-African American 90.7 (>60); Globulin 3.2 g/dL (2-4); Potassium 3.8 mmol/L (3.5-5.0); Total Bilirubin 0.4 mg/dL (0.2-1.0); Total Protein 7.4 g/dL (6.4-8.9)
[2018-07-08] MEDS ORDERED: Benzonatate CAP* 100 MG PO ONE (00:38)
[2018-07-08 01:27] VITALS: BP 111/66
== END 2018-07-08 01:28 | disposition home or self-care (01) ==
LOC: ED 21:41
DX: J10.1 Influenza due to other identified influenza virus with other respiratory manifestations (principal); J45.909 Unspecified asthma, uncomplicated; F41.9 Anxiety disorder, unspecified; Z88.1 Allergy status to other antibiotic agents; Z88.5 Allergy status to narcotic agent; Z88.0 Allergy status to penicillin; Z88.2 Allergy status to sulfonamides
CPT/HCPCS: 36415; 71046; 80053; 81003; 81015; 83605; 83880; 84484; 85025; 86140; 87040; 87086; 93005; 96360; 99283; A9270-GY

== ENCOUNTER → 2018-08-27 06:45 | Day surgery (SDC) | payer OTHER ==
[~2018-08-27 06:45] MED LIST: Acetaminophen IV 1GM/100ML * 100 ML ONE; Atracurium* 10 MG/ML 10 ML VIAL ONE; Buffered Lidocaine 1% SYRIN* 1 ML/SYRINGE INTRADERM ONE; Bupivacaine 0.5% W/EPI SDV* 30 ML VIAL ONE; Clindamycin 900 MG IVPREMIX(* 900 MG/50 ML SDV IV ONE; Dexamethasone IV* 4 MG/ML 1 ML (4 MG) IV SLOW PU ONE; Dexamethasone IV* 4 MG/ML 1 ML (4 MG) ONE; DiMENhydriNATE IV* 50 MG/ML VIAL IV PUSH PRN; EPHEDrine (Pressors)* 50 MG/ML VIAL ONE; Famotidine IV* 10 MG/ML 2 ML (20 mg) IV ONE; Famotidine IV* 10 MG/ML 2 ML (20 mg) ONE; Glycopyrrolate IV* 0.2 MG/ML 1 ML VIAL ONE; HYDROcodone/ACETAMIN 5-325 MG* 1 TAB PO ONE; KETAMINE HCL* 50 MG/ML 10 ML VIAL ONE; Lactated Ringers 1000 ML Bag* 1,000 ML IV SCH; Lidocaine 2% PF * 5 ML VIAL ONE; Metoprolol Tartrate IV* 1 MG/ML 5 ML VIAL ONE; Midazolam* 1 MG/ML 5 ML VIAL (5 MG) ONE; Naloxone* 0.4 MG/ML 1 ML VIAL IV PRN; Neostigmine Methylsulfate* 1 MG/ML 10 ML VIAL (1 mg/ml) ONE; Ondansetron ODT TAB* 4 MG ONE; Ondansetron TAB* 4 MG PO ONE; PROCHLORPERAZINE INJ 5 MG/ML 2 ML VIAL IV PRN; Propofol* 10 MG/ML 20 ML BTL ONE; Scopolamine 1.5 mg* PATCH ONE; Scopolamine 1.5 mg* PATCH TRANSDERM ONE; Scopolamine PATCH Remove* 1 NOTE MISC PATCH OFF ONE; fentaNYL* 50 MCG/ML 2 ML VIAL (100 MCG VIAL) IV PRN; fentaNYL* 50 MCG/ML 2 ML VIAL (100 MCG VIAL) ONE; fentaNYL* 50 MCG/ML 5 ML VIAL (250 MCG VIAL) ONE; hydrALAZINE IV* 20 MG/ML VIAL ONE
[2018-08-27 15:36] VITALS: BP 102/62
--- NOTE | 2018-08-27 22:40 | OP ---
CC: QUIN Lopez; [facility] * DATE OF SURGERY: 08/27/18 - SDS DATE OF : 62 SURGEON: Edgar Malave MD [employer] TEAM MEMBER: MALIK Nolasco student. ANESTHESIOLOGIST: Dr. Gutierrez. ANESTHESIA: General endotracheal. PRE-OP DIAGNOSIS: Status post laparoscopic adjustable gastric banding. POST-OP DIAGNOSIS: Status post laparoscopic adjustable gastric banding. OPERATIVE PROCEDURE: Removal of laparoscopic adjustable gastric band and subcutaneous components. ESTIMATED BLOOD LOSS: Minimal. IV FLUIDS: Crystalloid. SPECIMENS: None. DRAINS: None. COMPLICATIONS: None. COUNTS: Instrument, needle, and sponge counts were correct. DESCRIPTION OF PROCEDURE: The patient was brought to the operating room and placed on the table supine. Sequential compression devices were placed on both lower extremities. General anesthesia was administered. Her abdomen was prepped and draped in the usual sterile fashion after she had been properly positioned and padded. She received appropriate intravenous antibiotics. Local anesthetic was infiltrated into the skin and soft tissue prior to making each incision. The initial incision was over the palpable subcutaneous port, which was to the right side of the umbilicus. After dividing the subcutaneous tissues with cautery, the port was identified. It was dissected free and Prolene sutures were cut and removed to free the port. The tubing was followed to the abdominal wall and the peritoneal cavity, the 5 mm bladeless trocar was placed into the peritoneal cavity and the carbon dioxide was insufflated to a pressure of 15 mmHg. Then, under direct visualization, a 12-mm port was placed in the right upper quadrant and a 5 mm port placed in the left upper quadrant and then a Holley liver retractor was placed percutaneously in the subxiphoid position and this was used to elevate the left lobe of the liver. The band tubing was noted to be adherent to the undersurface of the liver and was encapsulated and I used a cautery from the LigaSure to open the capsule and free the band and then the band was unbuckled and the buckle from the band was cut and removed from the abdomen. The band was then able to be manipulated out from the retrogastric tunnel and then the tubing was cut externally and allowed to retract into the peritoneal cavity so that it could be grasped and that the band could be removed intact through the 12 mm port site. Inspection revealed hemostasis to be excellent. The ports were removed under direct visualization and carbon dioxide was released. The wounds were closed with 4-0 Monocryl in subcuticular fashion and Steri-Strips were applied. The patient tolerated the procedure well. He was extubated and transferred to the recovery room in a stable condition. [id number]/[facility] #: [id number] MTDFrancisco J
== END | disposition home or self-care (01) ==
LOC: OR 06:45
PROVIDERS: ATTEND Surgery
DX: K95.09 Other complications of gastric band procedure (principal); R13.10 Dysphagia, unspecified; K21.9 Gastro-esophageal reflux disease without esophagitis; J45.909 Unspecified asthma, uncomplicated; F41.8 Other specified anxiety disorders; M19.90 Unspecified osteoarthritis, unspecified site; Z98.84 Bariatric surgery status; E66.09 Other obesity due to excess calories
CPT/HCPCS: 43774; A9270-GY; J0360; J1100; J2250; J2704; J2710; J3010; J3490

== ENCOUNTER 2018-09-19 08:06 | Emergency (ER) | payer OTHER ==
[2018-09-19 08:21] VITALS: BP 125/75
--- NOTE | 2018-09-19 09:06 | UC ---
Throat Pain/Nasal Jimi HPI - HPI Summary HPI Summary: 58-year-old female comes in with a chief complaint of some runny nose sore throat and coughing up yellow sputum. Been going on for about a week. She recently had visitors or smoking in the house and she feels this is irritated her upper respiratory tract and caused infection. Denies any wheezing but she has had quite a bit of cough. In the last month she had some upper abdominal surgery and the upper abdomen does hurt with cough. No recent fevers. She does have some ear pain. She feels like the infection is primarily in the upper respiratory tract. - History of Current Complaint Chief Complaint: UCRespiratory Stated Complaint: CONGESTED Time Seen by Provider: 09/19/18 09:00 Hx Last Menstrual Period: age 50 Pain Intensity: 6 - Allergies/Home Medications Allergies/Adverse Reactions: Allergies Allergy/AdvReac Type Severity Reaction Status Date / Time cephalexin [From Keflex] Allergy Severe throat Verified 09/19/18 08:28 swells closed morphine Allergy Severe Abdominal Verified 09/19/18 08:28 Pain oxycodone [From Percocet] Allergy Severe Airway Verified 09/19/18 08:28 Obstruction Penicillins Allergy Severe Airway Verified 09/19/18 08:28 Obstruction Sulfa (Sulfonamide Allergy Severe Airway Verified 09/19/18 08:28 Antibiotics) Obstruction tigecycline [From Tygacil] Allergy Severe throat Verified 09/19/18 08:28 closes, hives Adhesive Tape Allergy Intermediate Rash Verified 09/19/18 08:28 hydromorphone AdvReac Severe Vomiting Verified 09/19/18 08:28 phenytoin [From Dilantin] AdvReac See Comment Verified 09/19/18 08:28 Home Medications: Home Medications Albuterol HFA INHALER* [Ventolin HFA Inhaler*] 2 puff INH Q6H PRN 09/19/18 [ History Confirmed 09/19/18] Albuterol inh POWDER (NF) [Proair Respiclick] 1 puff INH DAILY 09/19/18 [ History Confirmed 09/19/18] Ibuprofen 600 mg PO ONCE PRN 09/19/18 [History Confirmed 09/19/18] PMH/Surg Hx/FS Hx/Imm Hx Previously Healthy: Yes Respiratory History: Asthma Other History Of: Negative For: Anticoagulant Therapy - Surgical History Surgical History: Yes Surgery Procedure, Year, and Place: LUMBAR SURGERY X 3 - 2012 -W/ CAGE/WALTER & PINS/FUSION. GALLBLADDER REMOVED ;. TONSILECTOMY ;. TUBAL LIGATION ;. LAPBAND 2007 AND REVISION 2010;and removed 2019. SKIN CA REMOVED FROM NOSE - [place] (15 PLUS STITCHES AND INVASIVE) PT HAVING STITCHES REMOVED ON 07/31/18 . POLYPS/CYSTS REMOVED FRON UTERUS & CERVIX ;. ANAL FISSURE;. PINKY FINGER RIGHT CUT TENDON/REPAIR ;. MASS ON OUTSIDE OF CERVIX REMOVED 04/17. [ End ] - Family History Known Family History: Positive: Other - mother and sister have gout Negative: Diabetes Family History: negative for DM2 - Social History Alcohol Use: None Substance Use Type: None Smoking Status (MU): Never Smoked Tobacco Review of Systems All Other Systems Reviewed And Are Negative: Yes Constitutional: Positive: Negative Skin: Positive: Negative Eyes: Positive: Negative ENT: Positive: Sore Throat, Ear Ache, Nasal Discharge, Sinus Congestion Respiratory: Positive: Cough Cardiovascular: Positive: Negative Gastrointestinal: Positive: Abdominal Pain Motor: Positive: Negative Neurovascular: Positive: Negative Musculoskeletal: Positive: Negative Neurological: Positive: Negative Psychological: Positive: Negative Is Patient Immunocompromised?: No Physical Exam Triage Information Reviewed: Yes Appearance: No Pain Distress, Well-Nourished, Ill-Appearing - MILD Vital Signs: Initial Vital Signs Temp 96.5 F 09/19/18 08:12 Pulse 69 09/19/18 08:12 Resp 18 09/19/18 08:12 BP 125/75 09/19/18 08:12 Pulse Ox 96 09/19/18 08:12 Vital Signs Reviewed: Yes Eye Exam: Normal Eyes: Positive: Conjunctiva Clear ENT: Positive: Pharyngeal erythema, Nasal congestion, Nasal drainage, TMs normal Neck exam: Normal Neck: Positive: Supple Respiratory: Positive: Lungs clear, Normal breath sounds, No respiratory distress Cardiovascular: Positive: RRR Musculoskeletal Exam: Normal Musculoskeletal: Positive: Strength Intact, ROM Intact Neurological Exam: Normal Neurological: Positive: Alert, Muscle Tone Normal Psychological Exam: Normal Psychological: Positive: Age Appropriate Behavior Skin Exam: Normal Throat Pain/Nasal Course/Dx - Course Course Of Treatment: DISCUSSED VIRAL VERSES BACTERIAL INFECTION AND THE ROLE OF ANTIBIOTICS. THE PATIENT PREFERS TO BE ON ANTIBIOTICS AT THIS TIME. - Differential Dx/Diagnosis Provider Diagnosis: Upper respiratory infection Discharge - Sign-Out/Discharge Documenting (check all that apply): Patient Departure All imaging exams completed and their final reports reviewed: No Studies - Discharge Plan Condition: Stable Disposition: HOME Prescriptions: Azithromyxin TAHIR (NF) [Z-Tahir (Zithromax) 250 mg tabs #6] 2 tab PO .TODAY, THEN 1 DAILY #6 tab Benzonatate CAP* [Tessalon 100 MG CAP*] 100 mg PO TID PRN #20 cap PRN Reason: Cough Patient Education Materials: Upper Respiratory Infection (ED) Referrals: Elizabeth Brooks PA [Primary Care Provider] - Additional Instructions: FOLLOW UP WITH YOUR DOCTOR IF NOT COMPLETELY IMPROVED. GET REEVALUATED SOONER IF YOUR CONDITION WORSENS OR ANY QUESTIONS OR CONCERNS. - Billing Disposition and Condition Condition: STABLE Disposition: Home
== END 2018-09-19 09:10 | disposition home or self-care (01) ==
LOC: UCEAST 08:06
DX: J06.9 Acute upper respiratory infection, unspecified (principal); J45.909 Unspecified asthma, uncomplicated; Z88.1 Allergy status to other antibiotic agents; Z88.5 Allergy status to narcotic agent; Z88.0 Allergy status to penicillin; Z88.2 Allergy status to sulfonamides; Z88.8 Allergy status to other drugs, medicaments and biological substances; Z91.048 Other nonmedicinal substance allergy status
CPT/HCPCS: 99212; G0463

== ENCOUNTER 2018-09-24 09:29 | Emergency (ER) | payer OTHER ==
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
[2018-09-24 10:13] LABS: ABS Basophils 0.1 10^3/ul (0-0.2); ABS Eosinophils 0.3 10^3/ul (0-0.6); ABS Lymphocytes 1.5 10^3/ul (1.0-4.8); ABS Monocytes 0.5 10^3/ul (0-0.8); ABS Neutrophils 2.7 10^3/ul (1.5-7.7); Eosinophil % 6.7 %; Hematocrit 40 % (35-47); Hemoglobin 13.3 g/dL (12.0-16.0); Lymphocyte % 29.5 %; Mean Corpuscular HGB Conc 34 g/dL (31-36); Mean Corpuscular Hemoglobin 32 pg (27-31); Mean Corpuscular Volume 94 fL (80-97); Nucleated Red Blood Cells % 0.1; Platelet Count 210 10^3/uL (150-450); Red Blood Count 4.19 10^6 /uL (3.70-4.87); Red Cell Distribution Width 14 % (10.5-15); White Blood Count 5.1 10^3/uL (3.5-10.8)
[2018-09-24 10:23] LABS: Activated Partial Thrombo Time 30.5 seconds (26.0-36.3); INR 0.91 (0.82-1.09)
[2018-09-24 10:30] LABS: Albumin/Globulin Ratio 1.4 (1-3); C Reactive Protein 6.36 mg/L (<8.01); Calcium 9.4 mg/dL (8.6-10.3); EGFR African American 96.4 (>60); EGFR Non-African American 79.6 (>60); Globulin 2.9 g/dL (2-4); Magnesium 1.9 mg/dL (1.9-2.7); Potassium 3.9 mmol/L (3.5-5.0); Total Bilirubin 0.3 mg/dL (0.2-1.0); Total Protein 6.9 g/dL (6.4-8.9)
[2018-09-24] MEDS ORDERED: NS 0.9% 1000 ML** 1,000 ML IV ONE (10:35)
[2018-09-24] MEDS ORDERED: Morphine 4 MG/ML VIAL (1 ml) 4 MG/ML VIAL IV ONE (10:37)
[2018-09-24] MEDS ORDERED: Ondansetron INJ* 2 MG/ML VIAL IV ONE (10:37)
[2018-09-24] MEDS ORDERED: Iohexol 300* (CONTRAST) 10 ML SDV IV ONE (11:04)
[2018-09-24 11:45] LABS: Urine Appearance Clear; Urine Bacteria Absent (Absent); Urine Bilirubin Negative (Negative); Urine Blood 1+ (Negative); Urine Color Straw; Urine Glucose Negative (Negative); Urine Ketones Negative (Negative); Urine Nitrite Negative (Negative); Urine Protein Negative (Negative); Urine Red Blood Cell Trace(0-2/hpf) (Absent); Urine Specific Gravity 1.025 (1.010-1.030); Urine Urobilinogen Negative (Negative); Urine White Blood Cell Absent (Absent)
[2018-09-24 13:02] VITALS: BP 114/76
== END 2018-09-24 13:03 | disposition home or self-care (01) ==
LOC: ED 09:29
DX: L03.311 Cellulitis of abdominal wall (principal); M54.9 Dorsalgia, unspecified; D64.9 Anemia, unspecified; Z88.0 Allergy status to penicillin; Z88.2 Allergy status to sulfonamides; G47.30 Sleep apnea, unspecified; K21.9 Gastro-esophageal reflux disease without esophagitis; F41.9 Anxiety disorder, unspecified; F32.9 Major depressive disorder, single episode, unspecified; F43.10 Post-traumatic stress disorder, unspecified
CPT/HCPCS: 36415; 72131; 74177; 80053; 81003; 81015; 82140; 82150; 83605; 83690; 83735; 85025; 85610; 85730; 86140; 87040; 96361; 96374; 96375; 99283; J2270; J2405; Q9967

== ENCOUNTER → 2018-10-21 11:35 | Emergency (ER) | payer OTHER ==
[~2018-10-21 11:35] MED LIST changes: -Acetaminophen IV 1GM/100ML * 100 ML ONE; -Atracurium* 10 MG/ML 10 ML VIAL ONE; -Buffered Lidocaine 1% SYRIN* 1 ML/SYRINGE INTRADERM ONE; -Bupivacaine 0.5% W/EPI SDV* 30 ML VIAL ONE; -Clindamycin 900 MG IVPREMIX(* 900 MG/50 ML SDV IV ONE; -Dexamethasone IV* 4 MG/ML 1 ML (4 MG) IV SLOW PU ONE; -Dexamethasone IV* 4 MG/ML 1 ML (4 MG) ONE; -DiMENhydriNATE IV* 50 MG/ML VIAL IV PUSH PRN; +Diazepam TAB(*) 5 MG PO ONE; -EPHEDrine (Pressors)* 50 MG/ML VIAL ONE; -Famotidine IV* 10 MG/ML 2 ML (20 mg) IV ONE; -Famotidine IV* 10 MG/ML 2 ML (20 mg) ONE; -Glycopyrrolate IV* 0.2 MG/ML 1 ML VIAL ONE; -HYDROcodone/ACETAMIN 5-325 MG* 1 TAB PO ONE; -KETAMINE HCL* 50 MG/ML 10 ML VIAL ONE; +Ketorolac INJ* 60 MG/2 ML VIAL IM ONE; -Lactated Ringers 1000 ML Bag* 1,000 ML IV SCH; -Lidocaine 2% PF * 5 ML VIAL ONE; -Metoprolol Tartrate IV* 1 MG/ML 5 ML VIAL ONE; -Midazolam* 1 MG/ML 5 ML VIAL (5 MG) ONE; -Naloxone* 0.4 MG/ML 1 ML VIAL IV PRN; -Neostigmine Methylsulfate* 1 MG/ML 10 ML VIAL (1 mg/ml) ONE; -Ondansetron ODT TAB* 4 MG ONE; -Ondansetron TAB* 4 MG PO ONE; -PROCHLORPERAZINE INJ 5 MG/ML 2 ML VIAL IV PRN; -Propofol* 10 MG/ML 20 ML BTL ONE; -Scopolamine 1.5 mg* PATCH ONE; -Scopolamine 1.5 mg* PATCH TRANSDERM ONE; -Scopolamine PATCH Remove* 1 NOTE MISC PATCH OFF ONE; -fentaNYL* 50 MCG/ML 2 ML VIAL (100 MCG VIAL) IV PRN; -fentaNYL* 50 MCG/ML 2 ML VIAL (100 MCG VIAL) ONE; -fentaNYL* 50 MCG/ML 5 ML VIAL (250 MCG VIAL) ONE; -hydrALAZINE IV* 20 MG/ML VIAL ONE
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
[2018-10-21 14:50] VITALS: BP 101/61
== END | disposition home or self-care (01) ==
LOC: ED 11:35
DX: S16.1XXA Strain of muscle, fascia and tendon at neck level, initial encounter (principal); M54.9 Dorsalgia, unspecified; W18.09XA Striking against other object with subsequent fall, initial encounter; Y92.512 Supermarket, store or market as the place of occurrence of the external cause; K21.9 Gastro-esophageal reflux disease without esophagitis; Z88.0 Allergy status to penicillin; Z88.2 Allergy status to sulfonamides
CPT/HCPCS: 72050; 72070; 72110; 96372; 99282; A9270-GY; J1885

== ENCOUNTER 2019-03-24 08:27 | Emergency (ER) | payer OTHER ==
--- OUTSIDE RECORDS SUMMARY | 2019-03-24 08:35 | XMS REPORT | Continuity of Care Document ---
:1960 External Reference #:[id number] Author Name Ruthie Pickard MD (transmitted by agent of provider Jyoti Mcgee) Address [address], [place] [address] Care Team Providers Name Role Phone Bart Shahid MD - Neurological Care Team Information Looping Inspector Surgery [facility] - Care Team Information Looping Inspector [phone] Urology [facility] - Care Team Information Looping Inspector Electric Meter Installer Hallie Bolton MD - Gastroenterology Care Team Information Looping Inspector [facility] [place] [facility] - Sleep Disorder Care Team Information Looping Inspector [phone] Diagnostic Danny Jordan MD - Physical Care Team Information Looping Inspector Medicine & Rehabilitation Ruthie Pickard M.D. - Family Medicine Care Team Information Looping Inspector [phone] Problems Active Problems Provider Date Mild recurrent major depression Tarsha Underwood M.D. Onset: 06/09/2011 Asthma without status asthmaticus Tarsha Underwood M.D. Onset: 01/08/2012 Low back pain Kevin Cottrell M.D. Onset: 06/24/2014 Gastroesophageal reflux disease Lui Samson M.D. Onset: 09/05/2016 Mixed hyperlipidemia Lui Samson M.D. Onset: 10/17/2016 Essential hypertension Lui Samson M.D. Onset: 01/30/2017 Obesity Lui Samson M.D. Onset: 01/30/2017 Migraine without aura, not refractory Morenita Salinas MD Onset: 02/13/2017 Insomnia Lui Samson M.D. Onset: 07/17/2017 Neck pain Morenita Salinas MD Onset: 10/17/2017 Skin sensation disturbance Morenita Salinas MD Onset: 10/17/2017 Localized, secondary osteoarthritis of the Quentin Sanders MD Onset: 11/20/2017 shoulder region Strain of muscle(s) and tendon(s) of the Quentin Sanders MD Onset: 11/20/2017 rotator cuff of left shoulder, subsequent encounter Altered mental status Lui Samson M.D. Onset: 11/19/2017 Degeneration of lumbar intervertebral disc Kevin Cottrell M.D. Onset: 2017 Trochanteric bursitis Ly Varela M.D. Onset: 04/17/2018 Lumbar spondylosis Renan Nam MD Onset: 04/29/2018 Transient altered mental status Parker Reis M.D. Onset: 07/01/2018 Abnormal results function studies of Parker Reis M.D. Onset: 07/01/2018 central nervous system Localized, primary osteoarthritis of the Quentin Sanders MD Onset: 07/02/2018 shoulder region Disorder of shoulder Quentin Sanders MD Onset: 07/02/2018 Dizziness and giddiness Parker Reis M.D. Onset: 10/08/2018 Social History Type Date Description Comments Sex Unknown Tobacco Use Start: Unknown Never Smoked Cigarettes Smoking Status Reviewed: 02/05/19 Never Smoked Cigarettes ETOH Use Denies alcohol use Tobacco Use Start: Unknown Patient has never smoked Recreational Drug Use Denies Drug Use Exercise Type/Frequency Does not exercise Not exercising since hurting her back in September 2017. Previously pt was walking daily 20+ min daily Allergies, Adverse Reactions, Alerts Active Allergies Reaction Severity Comments Date Sulfa hives, throat closes Moderate 03/29/2011 Keflex hives, throat closes Moderate 03/29/2011 Tygacil hives, throat closes Moderate 03/29/2011 Dilantin throat closes, hives Moderate 03/29/2011 Penicillin hives, throat closes Moderate 03/29/2011 Morphine low resp. rate 07/28/2011 Tape Urticaria Moderate paper tape 07/28/2011 Percogesic Severe 03/03/2014 Percocet Anaphylaxis Severe 06/24/2014 Medications Active Medications SIG Qnty Indications Ordering Date Provider Duloxetine HCL 2 by mouth 60caps F33.0 Ruthie Pickard MD 12/23/[address] every day Part Cyclobenzaprine HCL Take 1/2 to 1 45tabs M54.5 Ruthie Pickard MD 10/30/2018 5mg tablet by Tablets mouth ever 8 hours for spasms Hydrocodone-Acetaminophe 1 tab every 8h 60tabs M54.2 Lui 10/24/2017 n as needed Karol Samson 5-325mg Tablets Ventolin HFA 2 puffs by 8gm J45.909 Ruthie Pickard MD 01/30/2017 108(90Base) mouth four mcg/Act Aerosol times a day as needed Tylenol PM Extra 1 tab by mouth Unknown Strength every 6 hours 500-25mg Tablets as needed Aspirin 1 by mouth Unknown 81mg Tablets DR every day Dulera 2 puffs a day 8.800gm Lui 200-5mcg/Act Aerosol Karol Samson History Medications Bupropion ( Not Taking 30tabs F33.0 Ruthie Pickard MD 11/19/2018 - Hydrochloride ER (SR) Side Effects) 1 12/23/2018 by mouth a day 150mg Tablets ER 12HR in am Flexeril Three Times 9tabs Unknown 10/21/2018 - Repack Daily 11/19/2018 10mg Tablets Clindamycin HCL Three Times 21caps Unknown 09/24/2018 - 300mg Daily 11/18/2018 Capsules Ibuprofen Once Unknown 09/19/2018 - 600mg Tablets 11/19/2018 Tessalon Perles Three Times 20caps Unknown 09/19/2018 - 100mg Daily 11/18/2018 Capsules Zithromax .Today, Then 1 6tabs Unknown 09/19/2018 - 250mg Tablets Daily 11/18/2018 Azithromycin 2 tabs x1 on 6tabs A37.90 Ruthie Pickard MD 08/06/2018 - 250mg first day, then 08/13/2018 Tablets one by mouth daily x 4 days Benzonatate 1 by mouth three 30caps A37.90 Ruthie Pickard MD 08/06/2018 - 100mg times a day as 08/13/2018 Capsules needed for cough Medications Administered in Office Medication SIG Qnty Indications Ordering Provider Date Triamcinolone (Kenalog) Quentin Sanders MD 11/26/2018 Injection Triamcinolone (Kenalog) Quentin Sanders MD 07/02/2018 Injection Depomedrol 40MG Ly Varela M.D. 04/17/2018 Injection Triamcinolone (Kenalog) Quentin Sanders MD 11/20/2017 Injection Immunizations CPT Code Status Date Vaccine Lot # [id number] Given 02/05/2018 Influenza Virus Vaccine, Quadrivalent, Split, [id number] Preservative Free [id number] Given 09/28/2015 Pneumonia Vaccine [id number] Given 03/31/2014 Flu Vaccine Split Virus Preservative Free For [id number] Indiv 3Yr Older Vital Signs Date Vital Result Comment 02/05/2019 10:41am Height 65 inches 5'5" Weight 252.00 lb Heart Rate 82 /min BP Systolic Sitting 115 mmHg BP Diastolic Sitting 78 mmHg O2 % BldC Oximetry 97 % BMI (Body Mass Index) 41.9 kg/m2 02/04/2019 9:46am Height 65 inches 5'5" Weight 252.00 lb Heart Rate 76 /min BP Systolic Sitting 140 mmHg BP Diastolic Sitting 82 mmHg Body Temperature 98.5 F Pain Level 7 BMI (Body Mass Index) 41.9 kg/m2 Results Test Date Facility Test Result H/L Range Note CBC Auto 10/30/2018 [facility] White Blood 5.1 10^3/uL Normal 3.5-10.[address] [place] [address] [phone] Red Blood Count 4.22 10^6/uL Normal 3.70-4.87 Hemoglobin 13.5 g/dL Normal 12.0-16.0 Hematocrit 40 % Normal 35-47 Mean Corpuscular Volume 95 fL Normal 80-97 Mean Corpuscular Hemoglobin 32 pg High 27-31 Mean Corpuscular HGB Conc 34 g/dL Normal 31-36 Red Cell Distribution Width 15 % Normal 10-15 Platelet Count 187 10^3/uL Normal 150-450 Mean Platelet Volume 10.0 fL Normal 7.4-10.4 Abs Neutrophils 2.4 10^3/uL Normal 1.5-7.7 Abs Lymphocytes 1.8 10^3/uL Normal 1.0-4.8 Abs Monocytes 0.7 10^3/uL Normal 0-0.8 Abs Eosinophils 0.1 10^3/uL Normal 0-0.6 Abs Basophils 0.1 10^3/uL Normal 0-0.2 Abs Nucleated RBC 0.0 10^3/uL Granulocyte % 47.8 % Lymphocyte % 35.2 % Monocyte % 12.9 % Eosinophil % 2.9 % Basophil % 1.2 % Nucleated Red Blood Cells % 0.1 Comp Metabolic 10/30/2018 [facility] Sodium 142 mmol/L Normal 135-[address] [place] [address] [phone] Potassium 4.2 mmol/L Normal 3.5-5.0 Chloride 108 mmol/L Normal 101-111 Co2 Carbon Dioxide 28 mmol/L Normal 22-32 Anion Gap 6 mmol/L Normal 2-11 Glucose 86 mg/dL Normal 70-100 Blood Urea Nitrogen 15 mg/dL Normal 6-24 Creatinine 0.72 mg/dL Normal 0.51-0.95 BUN/Creatinine Ratio 20.8 High 8-20 Calcium 9.5 mg/dL Normal 8.6-10.3 Total Protein 6.3 g/dL Low 6.4-8.9 Albumin 4.0 g/dL Normal 3.2-5.2 Globulin 2.3 g/dL Normal 2-4 Albumin/Globulin Ratio 1.7 Normal 1-3 Total Bilirubin 0.30 mg/dL Normal 0.2-1.0 Alkaline Phosphatase 67 U/L Normal 34-104 Alt 24 U/L Normal 7-52 Ast 22 U/L Normal 13-39 Egfr Non- 83.5 >60 Egfr 101.0 >60 1 Laboratory 10/30/2018 [facility] TSH (Thyroid 1.64 Normal 0.34 -5.[address] Stim Horm) mcIU/[place] [address] [phone] B-Type Natriuretic Peptide BNP 31 pg/mL <=100 Hemoglobin A1c (Glyco HGB) 6.0 % High 4.0-5.6 2 CBC Auto 09/24/2018 [facility] White Blood 5.1 10^3/uL Normal 3.5-10.[address] [place] [address] [phone] Red Blood Count 4.19 10^6/uL Normal 3.70-4.87 Hemoglobin 13.3 g/dL Normal 12.0-16.0 Hematocrit 40 % Normal 35-47 Mean Corpuscular Volume 94 fL Normal 80-97 Mean Corpuscular Hemoglobin 32 pg High 27-31 Mean Corpuscular HGB Conc 34 g/dL Normal 31-36 Red Cell Distribution Width 14 % Normal 10.5-15 Platelet Count 210 10^3/uL Normal 150-450 Mean Platelet Volume 9.0 fL Normal 7.4-10.4 Abs Neutrophils 2.7 10^3/uL Normal 1.5-7.7 Abs Lymphocytes 1.5 10^3/uL Normal 1.0-4.8 Abs Monocytes 0.5 10^3/uL Normal 0-0.8 Abs Eosinophils 0.3 10^3/uL Normal 0-0.6 Abs Basophils 0.1 10^3/uL Normal 0-0.2 Abs Nucleated RBC 0.0 10^3/uL Granulocyte % 53.8 % Lymphocyte % 29.5 % Monocyte % 8.9 % Eosinophil % 6.7 % Basophil % 1.1 % Nucleated Red Blood Cells % 0.1 Laboratory test 09/24/2018 [facility] Lactic Acid 1.6 mmol/L Normal 0.5-2.0 3 finding [address] [place] [address] [phone] Comp Metabolic 09/24/2018 [facility] Sodium 139 mmol/L Normal 135-145 Panel [address] [place] [address] [phone] Potassium 3.9 mmol/L Normal 3.5-5.0 Chloride 104 mmol/L Normal 101-111 Co2 Carbon Dioxide 30 mmol/L Normal 22-32 Anion Gap 5 mmol/L Normal 2-11 Glucose 138 mg/dL High 70-100 Blood Urea Nitrogen 18 mg/dL Normal 6-24 Creatinine 0.75 mg/dL Normal 0.51-0.95 BUN/Creatinine Ratio 24.0 High 8-20 Calcium 9.4 mg/dL Normal 8.6-10.3 Total Protein 6.9 g/dL Normal 6.4-8.9 Albumin 4.0 g/dL Normal 3.2-5.2 Globulin 2.9 g/dL Normal 2-4 Albumin/Globulin Ratio 1.4 Normal 1-3 Total Bilirubin 0.30 mg/dL Normal 0.2-1.0 Alkaline Phosphatase 68 U/L Normal 34-104 Alt 28 U/L Normal 7-52 Ast 20 U/L Normal 13-39 Egfr Non- 79.6 >60 Egfr 96.4 >60 4 Laboratory test 09/24/2018 [facility] Magnesium 1.9 mg/dL Normal 1.9-2.[address] [place] [address] [phone] Amylase 70 U/L Normal 29-103 Lipase 51 U/L Normal 11.0-82.0 C Reactive Protein 6.36 mg/L Normal <8.01 Urinalysis Profile 09/24/2018 [facility] Urine Color Straw [address] [place] [address] [phone] Urine Appearance Clear Urine Specific [place] 1.025 Normal 1.010-1.030 Urine pH 7.0 Normal 5-9 Urine Urobilinogen Negative Negative Urine Ketones Negative Negative Urine Protein Negative Negative Urine Leukocytes Negative Negative Urine Blood 1+ Abnormal Negative Urine Nitrite Negative Negative Urine Bilirubin Negative Negative Urine Glucose Negative Negative Urine White Blood Cell Absent Absent Urine Red Blood Cell Trace(0-2/hpf) Absent Urine Bacteria Absent Absent Laboratory test 09/24/2018 [facility] Blood SEE RESULT [address] [place] [address] [phone] Inr/Protime 09/24/2018 [facility] Inr 0.91 Normal 0.82- [address] 1.09 [place] [address] [phone] Laboratory test 09/24/2018 [facility] Partial 30.5 seconds Normal 26.0- finding [address] Thrombo Time 36.3 [place] [address] PTT [phone] Ammonia 48 mcmol/L Normal 16-53 1 Because ethnic data is not always readily [...] 15-29 5 Kidney failure <15 (or dialysis) 2 Therapeutic target for the treatment of diabetes mellitus patients is <7% HBA1C, and in selective patients <6.0%. Please refer to [place] [employer] diabetic care guidelines for further information. 3 [facility] Severe Sepsis and Septic Shock Management Bundle Measure requires all lactic acids initially measuring >2.0 mmol/L be repeated. 4 Because ethnic data is not always [...] 5 Kidney failure <15 (or dialysis) 5 SEE RESULT BELOW Name: LILIA,KEENA M : [address]: Cira Ng MD Acct: [id number] Unit: [id number] AGE: 58 Location: ED Re09/24/18 SEX: F Status: DEP ER SPEC: [id number] HASEEB: 09/24/[address] [facility] DR: Mohit Ng MD REQ: [id number] RECD: 09/24/18 STATUS: CELIA ERNANDEZ DR: Elizabeth Brooks PA _ SOURCE: BLOOD,VENO SPDES: ORDERED: Blood Cult Procedure Result Reported Site Aerobic Culture Bottle Final 09/29/18- 1009 ML No Growth Day 5 Anaerobic Culture Bottle Final 09/29/18- 1009 ML No Growth Day 5 * ML - Main Lab . END OF REPORT DEPARTMENT OF PATHOLOGY, [address] [place] [address] Wayne Duff M.D. Director [facility] # [id number] 6 Standard intensity warfarin therapeutic range: 2.0-3.0 High intensity warfarin therapeutic range: 2.5-3.5 Procedures Date Code Description Status 11/26/2018 88400 Inject/Drain Joint/Bursa Major W/O US Completed 10/30/2018 28126 EKG Tracing & Interpretation Completed 08/19/2018 79177 ECHO Transthoracic, Real-Time 2D With Doppler And Color Completed Flow 08/19/2018 31579 ECHO Transthoracic, Real-Time 2D With Doppler And Color Completed Flow 05/20/2018 [id number] Mammogram Completed 03/12/2017 [id number] Mammogram Completed 12/21/2015 [id number] Mammogram Completed 12/15/2014 [id number] Mammogram Completed 02/17/2014 [id number] Colonoscopy Completed 11/18/2013 [id number] Mammogram Completed 12/26/2011 [id number] Mammogram Completed 08/24/2010 [id number] Colonoscopy Completed Medical Devices Description No Information Available Encounters Type Date Location Provider Dx Diagnosis Office Visit 12/23/2018 [facility] Ruthie Pickard MD F33.0 Major depressive 9:40a Medicine - Ccmob disorder, recurrent, mild Office Visit 11/19/2018 [facility] Ruthie Pickard MD R63.5 Abnormal weight 9:20a Medicine - Ccmob gain F33.0 Major depressive disorder, recurrent, mild Office Visit 10/31/2018 Orthopedic Quentin Sanders, M19.012 Primary 9:30a Services Of osteoarthritis, left C.M.A. shoulder M75.42 Impingement syndrome of left shoulder Office Visit 10/30/2018 10:40a [facility] Elizabeth R60.9 Edema, unspecified Medicine - Ccmob Marker, RPA-C R06.02 Shortness of breath M54.5 Low back pain R63.1 Polydipsia Office Visit 10/08/2018 9:15a Neurohospitalist Parker Reis, M54.5 Low back Clinic M.D. pain G43.009 Migraine w/o aura, not intractable, w/o status migrainosus R42 Dizziness and giddiness R94.02 Abnormal brain scan L03.311 Cellulitis of abdominal wall Office Visit 08/20/2018 Orthopedic Quentin Sanders, M19.012 Primary 11:15a Services Of osteoarthritis, left C.M.A. shoulder M75.42 Impingement syndrome of left shoulder Office Visit 08/14/2018 Neurosurgery Vassilios M47.896 Other 9:00a Services Of Sharath Nam MD spondylosis, lumbar region Z98.1 Arthrodesis status Office Visit 08/06/2018 4:20p [facility] Ruthie Pickard, A37.90 Whooping cough, Medicine - unspecified Suite R species without pneumonia Assessments Date Code Description Provider 02/05/2019 F33.0 Major depressive disorder, recurrent, Ruthie Pickard MD mild 02/05/2019 R19.7 Diarrhea, unspecified Ruthie Pickard MD 02/05/2019 R63.5 Abnormal weight gain Ruthie Pickard MD 02/04/2019 M19.012 Primary osteoarthritis, left shoulder Quentin Sanders MD 02/04/2019 M75.42 Impingement syndrome of left shoulder Quentin Sanders MD 12/23/2018 F33.0 Major depressive disorder, recurrent, Ruthie Pickard MD mild 11/26/2018 M19.012 Primary osteoarthritis, left shoulder Quentin Sanders MD 11/26/2018 M75.42 Impingement syndrome of left shoulder Quentin Sanders MD 11/19/2018 R63.5 Abnormal weight gain Ruthie Pickard MD 11/19/2018 F33.0 Major depressive disorder, recurrent, Ruthie Pickard MD mild 10/31/2018 M19.012 Primary osteoarthritis, left shoulder Quentin Sanders MD 10/31/2018 M75.42 Impingement syndrome of left shoulder Quentin Sanders MD 10/30/2018 R94.31 Abnormal electrocardiogram [ECG] [EKG] Ammy Reardon M.D. 10/30/2018 R60.9 Edema, unspecified Elizabeth Marker, RPA-C 10/30/2018 R06.02 Shortness of breath Ammy Reardon M.D. 10/30/2018 R06.02 Shortness of breath Elizabeth Marker, RPA-C 10/30/2018 M54.5 Low back pain Elizabeth Marker, [facility] 10/30/2018 R63.1 Polydipsia Elizabeth Marker, RPA-C 10/08/2018 M54.5 Low back pain Parker Reis M.D. 10/08/2018 G43.009 Migraine without aura, not Parker Reis M.D. intractable, without status migra 10/08/2018 R42 Dizziness and giddiness aPrker Reis M.D. 10/08/2018 R94.02 Abnormal brain scan Parker Reis M.D. 10/08/2018 L03.311 Cellulitis of abdominal wall Parker eRis M.D. 08/20/2018 M19.012 Primary osteoarthritis, left shoulder Quentin Sanders MD 08/20/2018 M75.42 Impingement syndrome of left shoulder Quentin Sanders MD 08/19/2018 R60.9 Edema, unspecified Elena Landa M.D. 08/19/2018 R60.9 Edema, unspecified [facility] 08/19/2018 G47.33 Obstructive sleep apnea (adult) [facility] Schedule (pediatric) 08/19/2018 J45.909 Unspecified asthma, uncomplicated [facility] Schedule 08/14/2018 M47.896 Other spondylosis, lumbar region Renan Nam MD 08/14/2018 Z98.1 Arthrodesis status Renan Nam MD 08/06/2018 A37.90 Whooping cough, unspecified species Ruthie Pickard MD without pneumonia Plan of Treatment Future Appointment(s):04/07/2019 8:40 am - [facility] am - Francai Medina LMSW [facility] 3:30 pm - Parker Reis M.D. at [facility]02/05/2019 - Ruthie Pickard MDF33.0 Major depressive disorder, recurrent, mildComments:plan is to increase to 40mgFollow up:2 moR19.7 Diarrhea, unspecifiedComments:This is likely related to anxiety, what is called IBS (irritable bowel syndrome). Managing stress and eliminating certain foods (I am providing you with a list), can helpR63.5 Abnormal weight gainComments:Please call Agustín and ask for the name of a registered dietitian that they will cover and I will change your referralReferral:[facility], Electric Meter Installer Functional Status Description No Information Available Mental Status Description No Information Available Referrals Refer to Reason for Referral Status Appt Date [facility] pt with continued weight gain, Created needs dietary counseling [address] [place], [place] [id number] [phone] Francia Medina, TATIANA please evaluate pt with hx of depression Scheduled 05/2018 and disordered eating, recent 30 lbs weight gain after removing lap band in August, possible binge eating disorder LMTCB to schedule 12/09 [address] [facility] [place] [address] [place] [address] [phone]
--- OUTSIDE RECORDS SUMMARY | 2019-03-24 08:35 | XMS REPORT | Continuity of Care Document ---
:1960 External Reference #:[id number] Author Name Constance Haji MD (transmitted by agent of provider Jyoti Mcgee) Address [address] [place] [address] Care Team Providers Name Role Phone Bart Shahid MD - Neurological Care Team Information Quality Auditor Surgery [facility] - Care Team Information Quality Auditor Urology [facility] - Care Team Information Quality Auditor Paralegal Internship Hallie Bolton MD - Gastroenterology Care Team Information Quality Auditor [facility] - Sleep Disorder Care Team Information Quality Auditor Diagnostic Danny Jordan MD - Physical Care Team Information Quality Auditor [phone] Medicine & Rehabilitation Ruthie Pickard M.D. - Family Medicine Care Team Information Quality Auditor Problems Active Problems Provider Date Mild recurrent [...] Unknown Never Smoked Cigarettes Smoking Status Reviewed: 03/13/19 Never Smoked Cigarettes ETOH Use Denies alcohol [...] Hydrocodone-Acetaminophe 1 tab every 8h 60tabs M54.2 Sultan 10/24/2017 n as needed Karol Samson 5-325mg Tablets Ventolin HFA 2 puffs by 8gm J45.909 Constance Haji, 01/30/2017 108(90Base) mouth four MD mcg/Act Aerosol times a day as needed Tylenol PM Extra 1 tab by mouth Unknown Strength every 6 hours 500-25mg Tablets as needed Aspirin 1 by mouth Unknown 81mg Tablets DR every day Dulera 2 puffs a day 8.800gm Constance Haji, 200-5mcg/Act Aerosol MD History Medications Bupropion ( Not Taking Side 30tabs F33.0 Ruthie Pickard MD 11/19/2018 - Hydrochloride ER (SR) Effects) 1 by 12/23/2018 mouth a day in am 150mg Tablets ER 12HR Flexeril Three Times Daily 9tabs Unknown 10/21/2018 - Repack 11/19/2018 10mg Tablets Clindamycin HCL Three Times Daily 21caps Unknown 09/24/2018 - 300mg 11/18/2018 Capsules Ibuprofen Once Unknown 09/19/2018 - 600mg Tablets 11/19/2018 Tessalon Perles Three Times Daily 20caps Unknown 09/19/2018 - 100mg 11/18/2018 Capsules Zithromax .Today, Then 1 6tabs Unknown 09/19/2018 - 250mg Tablets Daily 11/18/2018 Medications Administered in Office Medication SIG Qnty Indications Ordering Provider Date Triamcinolone (Kenalog) Quentin Sanders MD 11/26/2018 Injection Triamcinolone (Kenalog) Quentin Sanders MD 07/02/2018 Injection Depomedrol 40MG Ly Varela M.D. 04/17/2018 Injection Triamcinolone (Kenalog) Quentin Sanders MD 11/20/2017 Injection Immunizations CPT Code Status Date Vaccine Lot # [id number] Given 02/05/2018 Influenza Virus Vaccine, Quadrivalent, Split, [id number] Preservative Free [id number] Given 09/28/2015 Pneumonia Vaccine [id number] Given 03/31/2014 Flu Vaccine Split Virus Preservative Free For [id number] Indiv 3Yr Older Vital Signs Date Vital Result Comment 03/13/2019 8:08am Height 65 inches 5'5" Weight 259.00 lb Heart Rate 85 /min BP Systolic Sitting 123 mmHg BP Diastolic Sitting 81 mmHg O2 % BldC Oximetry 94 % BMI (Body Mass Index) 43.1 kg/m2 02/25/2019 10:02am Height 65 inches 5'5" Weight 250.00 lb Heart Rate 78 /min BP Systolic 130 mmHg BP Diastolic 72 mmHg Body Temperature 98.1 F Pain Level 4 BMI (Body Mass Index) 41.6 kg/m2 Results Test Date Facility Test Result H/L Range Note CBC Auto 10/30/2018 [facility] White Blood 5.1 10^3/uL Normal 3.5-10.[address] [place] [address] [phone] Red Blood Count 4.22 10^6/uL Normal 3.70-4.87 [...] Blood Cells % 0.1 Comp Metabolic 10/30/2018 [facility] Sodium 142 mmol/L Normal 135-[address] [place] [address] [phone] Potassium 4.2 mmol/L Normal 3.5-5.0 Chloride 108 [...] >60 Egfr 101.0 >60 1 Laboratory 10/30/2018 [facility] TSH (Thyroid 1.64 Normal 0.34 -5.[address] Stim Horm) mcIU/[place] [address] [phone] B-Type Natriuretic Peptide BNP 31 pg/mL <=100 Hemoglobin A1c (Glyco HGB) 6.0 % High 4.0-5.6 2 CBC Auto 09/24/2018 [facility] White Blood 5.1 10^3/uL Normal 3.5-10.[address] [place] [address] [phone] Red Blood Count 4.19 10^6/uL Normal 3.70-4.87 [...] Blood Cells % 0.1 Laboratory test 09/24/2018 [facility] Lactic Acid 1.6 mmol/L Normal 0.5-2.0 3 finding [address] [place] [address] [phone] Comp Metabolic 09/24/2018 [facility] Sodium 139 mmol/L Normal 135-145 Panel [address] [place] [address] [phone] Potassium 3.9 mmol/L Normal 3.5-5.0 Chloride 104 [...] Egfr 96.4 >60 4 Laboratory test 09/24/2018 [facility] Magnesium 1.9 mg/dL Normal 1.9-2.[address] [place] [address] [phone] Amylase 70 U/L Normal 29-103 Lipase 51 U/L Normal 11.0-82.0 C Reactive Protein 6.36 mg/L Normal <8.01 Urinalysis Profile 09/24/2018 [facility] Urine Color Straw [address] [place] [address] [phone] Urine Appearance Clear Urine Specific Point 1.025 Normal 1.010-1.030 Urine pH 7.0 Normal 5-9 Urine Urobilinogen Negative Negative Urine Ketones Negative Negative Urine Protein Negative Negative Urine Leukocytes Negative Negative Urine Blood 1+ Abnormal Negative Urine Nitrite Negative Negative Urine Bilirubin Negative Negative Urine Glucose Negative Negative Urine White Blood Cell Absent Absent Urine Red Blood Cell Trace(0-2/hpf) Absent Urine Bacteria Absent Absent Laboratory test 09/24/2018 [facility] Blood SEE RESULT [address] [place] [address] [phone] Inr/Protime 09/24/2018 [facility] Inr 0.91 Normal 0.82- [address] 1.09 [place] [address] [phone] Laboratory test 09/24/2018 [facility] Partial 30.5 seconds Normal 26.0- finding [address] Thrombo Time 36.3 [place] [address] PTT [phone] Ammonia 48 mcmol/L Normal 16-53 1 Because [...] in selective patients <6.0%. Please refer to [place] [employer] diabetic care guidelines for further information. 3 [facility] Severe Sepsis and Septic Shock Management [...] (or dialysis) 5 SEE RESULT BELOW Name: KEENA COATES : [address]: Cira Ng MD Acct: [id number] Unit: [id number] AGE: 58 Location: ED Re09/24/18 SEX: F Status: DEP ER SPEC: [id number] HASEEB: 09/24/[address] [facility] [address]: Mohit Ng MD REQ: [id number] RECD: 09/24/18 STATUS: CELIA ERNANDEZ DR: Elizabeth Brooks PA _ SOURCE: BLOOD,VENO SPDES: ORDERED: Blood Cult Procedure Result Reported Site Aerobic Culture Bottle Final 09/29/18- 1009 ML No Growth Day 5 Anaerobic Culture Bottle Final 09/29/18- 1009 ML No Growth Day 5 * ML - Main Lab . END OF REPORT DEPARTMENT OF PATHOLOGY, [address] [place] [address] Wayne Duff M.D. Director [facility] # [id number] Standard intensity warfarin therapeutic range: 2.0-3.0 High intensity warfarin therapeutic range: 2.5-3.5 Procedures Date Code Description Status 11/26/2018 27763 Inject/Drain Joint/Bursa Major W/O US Completed 10/30/2018 51369 EKG Tracing & Interpretation Completed 05/20/2018 [id number] Mammogram Completed 03/12/2017 [id number] Mammogram Completed 12/21/2015 [id number] Mammogram Completed 12/15/2014 [id number] Mammogram Completed 02/17/2014 [id number] Colonoscopy Completed 11/18/2013 [id number] Mammogram Completed 12/26/2011 [id number] Mammogram Completed 08/24/2010 [id number] Colonoscopy Completed Medical Devices Description No Information Available Encounters Type Date Location Provider Dx Diagnosis Office Visit 02/25/2019 [facility] Quentin Sanders MD M19.012 Primary 10:15a at [place] osteoarthritis, left shoulder S46.012D Strain of musc/tend the rotator cuff of left shoulder, subs Office Visit 02/05/2019 10:40a Sharath Pickard MD F33.0 Major depressive Medicine - Ccmob disorder, recurrent, mild R19.7 Diarrhea, unspecified R63.5 Abnormal weight gain Office Visit 02/04/2019 Kim Saavedra M19.012 Primary 9:45a Orthopedics at [facility] osteoarthritis, left [place] shoulder M75.42 Impingement syndrome of left shoulder Office Visit 12/23/2018 9:40a Sharath Pickard MD F33.0 Major depressive Medicine - Ccmob disorder, recurrent, mild Office Visit 11/19/2018 9:20a Sharath Pickard MD R63.5 Abnormal weight Medicine - Ccmob gain F33.0 Major depressive disorder, recurrent, mild Office Visit [place] [facility] M19.012 Primary 9:30a Orthopedics at [facility] osteoarthritis, left [place] shoulder M75.42 Impingement syndrome of left shoulder Office Visit 10/30/2018 10:40a [facility] Elizabeth R60.9 Edema, unspecified Medicine - Ccmob Marker, RPA-C R06.02 Shortness of breath M54.5 Low back pain R63.1 Polydipsia Office Visit 10/08/2018 9:15a Neurohospitalist Parker Reis, M54.5 Low back Clinic M.DDoug pain G43.009 Migraine w/o aura, not intractable, w/o status migrainosus R42 Dizziness and giddiness R94.02 Abnormal brain scan L03.311 Cellulitis of abdominal wall Assessments Date Code Description Provider 03/13/2019 Z01.818 Encounter for other preprocedural Constance Haji MD examination 03/13/2019 R60.9 Edema, unspecified Constance Haji MD 02/25/2019 M19.012 Primary osteoarthritis, left shoulder Quentin Sanders MD 02/25/2019 S46.012D Strain of muscle(s) and tendon(s) of the Quentin Sanders MD rotator cuff of left shoulder, subsequent encounter 02/05/2019 F33.0 Major depressive disorder, recurrent, mild Ruthie Pickard MD 02/05/2019 R19.7 Diarrhea, unspecified Ruthie Pickard MD 02/05/2019 R63.5 Abnormal weight gain Ruthie Pickard MD 02/04/2019 M19.012 Primary osteoarthritis, left shoulder Quentin Sanders MD 02/04/2019 M75.42 Impingement syndrome of left shoulder Quentin Sanders MD 12/23/2018 F33.0 Major depressive disorder, recurrent, mild Ruthie Pickard MD 11/26/2018 M19.012 Primary osteoarthritis, left shoulder Quentin Sanders MD 11/26/2018 M75.42 Impingement syndrome of left shoulder Quentin Sanders MD 11/19/2018 R63.5 Abnormal weight gain Ruthie Pickard MD 11/19/2018 F33.0 Major depressive disorder, recurrent, mild Ruthie Pickard MD 10/31/2018 M19.012 Primary osteoarthritis, left shoulder Quentin Sanders MD 10/31/2018 M75.42 Impingement syndrome of left shoulder Quentin Sanders MD 10/30/2018 R94.31 Abnormal electrocardiogram [ECG] [EKG] Ammy Reardon M.D. 10/30/2018 R60.9 Edema, unspecified Elizabeth Marker, RPA-C 10/30/2018 R06.02 Shortness of breath Ammy Reardon M.D. 10/30/2018 R06.02 Shortness of breath Elizabeth Marker, RPA-C 10/30/2018 M54.5 Low back pain Elizabeth Marker, RPA-C 10/30/2018 R63.1 Polydipsia Elizabeth Marker, RPA-C 10/08/2018 M54.5 Low back pain Parker Reis M.D. 10/08/2018 G43.009 Migraine without aura, not intractable, Parker Reis M.D. without status migra 10/08/2018 R42 Dizziness and giddiness Parker Reis M.D. 10/08/2018 R94.02 Abnormal brain scan Parker Reis M.D. 10/08/2018 L03.311 Cellulitis of abdominal wall Parker Reis M.D. Plan of Treatment Future Appointment(s):03/25/2019 10:45 am - Quentin Sanders MD at [facility] at [id number]/09/2019 12:30 pm - Quentin Sanders MD at [facility] at [email or web address]/07/2019 8:40 am - Ruthie Pickard MD at [facility] Internal Medicine - [facility]10/09/2019 3:30 pm - Parker Reis M.D. at [facility]03/13/2019 - Constance Haji MDZ01.818 Encounter for other preprocedural examinationNew Xrays:Chest PA & Lat 2 VWS, Ordered: R60.9 Edema, unspecified Functional Status Description No Information Available Mental Status Description No Information Available Referrals Refer to Dr Reason for Referral Status Appt Date [facility] pt with continued weight gain, Closed 03/12 needs dietary counseling Seen in August. Will call pt to schedule. 02/24 [address] [place] [address] [phone] Sma, Francia, [employer] please evaluate pt with hx of depression Scheduled 05/2018 and disordered eating, recent 30 lbs weight gain after removing lap band in August, possible binge eating disorder LMTCB to schedule 12/[address] [place] [address] [place] [address] [place] [address] [phone]
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
--- OUTSIDE RECORDS SUMMARY | 2019-03-24 08:35 | XMS REPORT | Continuity of Care Document ---
:1960 External Reference #:[id number] Author Name Quentin Sanders MD (transmitted by agent of provider Stephanie Villagran) Address [address] [facility] [facility], [place] [address] Care Team Providers Name Role Phone Bart Shahid MD - Neurological Care Team Information Seo Marketing Specialist [phone] Surgery [facility] - Care Team Information Seo Marketing Specialist [phone] Urology [facility] - Care Team Information Seo Marketing Specialist Soap Worker Hallie Bolton MD - Gastroenterology Care Team Information Seo Marketing Specialist [facility] - [facility] Care Team Information Seo Marketing Specialist [phone] Diagnostic Danny Jordan MD - Physical Care Team Information Seo Marketing Specialist [phone] Medicine & Rehabilitation Ruthie Pickard M.D. - Family Medicine Care Team Information Seo Marketing Specialist Problems Active Problems Provider Date Mild recurrent [...] Unknown Never Smoked Cigarettes Smoking Status Reviewed: 02/04/19 Never Smoked Cigarettes ETOH Use Denies alcohol [...] Qnty Indications Ordering Date Provider Duloxetine HCL 1 by mouth 30caps F33.0 Ruthie Pickard MD 12/23/[address] every day Part Cyclobenzaprine HCL Take 1/2 to 1 45tabs M54.5 Ruthie Pickard MD 10/30/2018 5mg tablet by Tablets mouth ever 8 hours for spasms Hydrocodone-Acetaminophe 1 tab every 8h 60tabs M54.2 Graham 10/24/2017 n as needed Karol Samson 5-325mg Tablets Ventolin HFA 2 puffs by 8gm J45.909 Graham 01/30/2017 108(90Base) mouth four Karol Samson mcg/Act Aerosol times a day as needed Tylenol PM Extra 1 tab by mouth Unknown Strength every 6 hours 500-25mg Tablets as needed Aspirin 1 by mouth Unknown 81mg Tablets DR every day Dulera 2 puffs a day 8.800gm Graham 200-5mcg/Act Aerosol Karol Samson Naproxen 1 by mouth Unknown 250mg Tablets twice a day History Medications Bupropion ( Not Taking Side 30tabs F33.0 Ruthie Pickard MD 11/19/2018 - Hydrochloride ER Effects) 1 by mouth 12/23/2018 (SR) a day in am 150mg Tablets ER 12HR Flexeril Three Times Daily 9tabs Unknown 10/21/2018 - Repack 11/19/2018 10mg Tablets Clindamycin HCL Three Times Daily 21caps Unknown 09/24/2018 - 300mg 11/18/2018 Capsules Ibuprofen Once Unknown 09/19/2018 - 600mg 11/19/2018 Tablets Tessalon Perles Three Times Daily 20caps Unknown 09/19/2018 - 100mg 11/18/2018 Capsules Zithromax .Today, Then 1 6tabs Unknown 09/19/2018 - 250mg Daily 11/18/2018 Tablets Azithromycin 2 tabs x1 on first 6tabs A37.90 Ruthie Pickard MD 08/06/2018 - 250mg day, then one by 08/13/2018 Tablets mouth daily x 4 days Benzonatate 1 by mouth three 30caps A37.90 Ruthie Pickard MD 08/06/2018 - 100mg times a day as 08/13/2018 Capsules needed for cough Cpap D/C cpap as pt is Lorrie 08/05/2018 - unable to tolerate 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 Medications Administered in Office Medication SIG Qnty Indications Ordering Provider Date Triamcinolone (Kenalog) Quentin Sanders MD 11/26/2018 Injection Triamcinolone (Kenalog) Quentin Sanders MD 07/02/2018 Injection Depomedrol 40MG Ly Varela M.D. 04/17/2018 Injection Triamcinolone (Kenalog) Quentin Sanders MD 11/20/2017 Injection Immunizations CPT Code Status Date Vaccine Lot # [id number] Given 02/05/2018 Influenza Virus Vaccine, Quadrivalent, Split, [id number] Preservative Free [id number] Given 09/28/2015 Pneumonia Vaccine [id number] Given 03/31/2014 Flu Vaccine Split Virus Preservative Free For [id number] Indiv 3Yr Older Vital Signs Date Vital Result Comment 02/04/2019 9:46am Height 65 inches 5'5" Weight 252.00 lb Heart Rate 76 /min BP Systolic Sitting 140 mmHg BP Diastolic Sitting 82 mmHg Body Temperature 98.5 F Pain Level 7 BMI (Body Mass Index) 41.9 kg/m2 12/23/2018 9:50am Height 65 inches 5'5" Weight 242.00 lb Heart Rate 67 /min BP Systolic 120 mmHg BP Diastolic 70 mmHg Body Temperature 97.6 F O2 % BldC Oximetry 96 % BMI (Body Mass Index) 40.3 kg/m2 Results Test Date Facility Test Result H/L Range Note CBC Auto 10/30/2018 [facility] White Blood 5.1 10^3/uL Normal 3.5-10.[address] [place] [address] [phone] Red Blood Count 4.22 10^6/uL Normal 3.70-4.87 [...] Blood Cells % 0.1 Comp Metabolic 10/30/2018 [facility] Sodium 142 mmol/L Normal 135-[address] [place] [address] [phone] Potassium 4.2 mmol/L Normal 3.5-5.0 Chloride 108 [...] >60 Egfr 101.0 >60 1 Laboratory 10/30/2018 [facility] TSH (Thyroid 1.64 Normal 0.34 -5.60 test finding [address] Stim Horm) mcIU/[place] [address] [phone] B-Type Natriuretic Peptide BNP 31 pg/mL <=100 Hemoglobin A1c (Glyco HGB) 6.0 % High 4.0-5.6 2 CBC Auto 09/24/2018 [facility] White Blood 5.1 10^3/uL Normal 3.5-10.[address] [place] [address] [phone] Red Blood Count 4.19 10^6/uL Normal 3.70-4.87 [...] Blood Cells % 0.1 Laboratory test 09/24/2018 [facility] Lactic Acid 1.6 mmol/L Normal 0.5-2.0 3 finding [address] [place] [address] [phone] Comp Metabolic 09/24/2018 [facility] Sodium 139 mmol/L Normal 135-145 Panel [address] [place] [address] [phone] Potassium 3.9 mmol/L Normal 3.5-5.0 Chloride 104 [...] Egfr 96.4 >60 4 Laboratory test 09/24/2018 [facility] Magnesium 1.9 mg/dL Normal 1.9-2.[address] [place] [address] [phone] Amylase 70 U/L Normal 29-103 Lipase 51 U/L Normal 11.0-82.0 C Reactive Protein 6.36 mg/L Normal <8.01 Urinalysis Profile 09/24/2018 [facility] Urine Color Straw [address] [place] [address] [phone] Urine Appearance Clear Urine Specific [place] 1.025 Normal 1.010-1.030 Urine pH 7.0 Normal 5-9 Urine Urobilinogen Negative Negative Urine Ketones Negative Negative Urine Protein Negative Negative Urine Leukocytes Negative Negative Urine Blood 1+ Abnormal Negative Urine Nitrite Negative Negative Urine Bilirubin Negative Negative Urine Glucose Negative Negative Urine White Blood Cell Absent Absent Urine Red Blood Cell Trace(0-2/hpf) Absent Urine Bacteria Absent Absent Laboratory test 09/24/2018 [facility] Blood SEE RESULT [address] [place] [address] [phone] Inr/Protime 09/24/2018 [facility] Inr 0.91 Normal 0.82- [address] 1.09 [place] [address] [phone] Laboratory test 09/24/2018 [facility] Partial 30.5 seconds Normal 26.0- finding [address] Thrombo Time 36.3 [place] [address] PTT [phone] Ammonia 48 mcmol/L Normal 16-53 1 Because [...] in selective patients <6.0%. Please refer to [place] [employer] diabetic care guidelines for further information. 3 KSS Severe Sepsis and Septic Shock Management Bundle [...] [address]: Cira Ng MD Acct: [id number] Unit: [id number] AGE: 58 Location: ED Re09/24/18 SEX: F Status: DEP ER SPEC: [id number] HASEEB: 09/24/[address] [facility] [address]: Mohit Ng MD REQ: [id number] RECD: 09/24/18 STATUS: CELIA ERNANDEZ DR: Elizabeth Brooks PA _ SOURCE: BLOOD,VENO SPDESC: ORDERED: Blood Cult Procedure Result Reported Site Aerobic Culture Bottle Final 09/29/18- 1009 ML No Growth Day 5 Anaerobic Culture Bottle Final 09/29/18- 1009 ML No Growth Day 5 * ML - Main Lab . END OF REPORT DEPARTMENT OF PATHOLOGY, [address] [place] [address] Wayne Duff M.D. Director [facility] # [id number] Standard intensity warfarin therapeutic range: 2.0-3.0 High intensity warfarin therapeutic range: 2.5-3.5 Procedures Date Code Description Status 11/26/2018 34428 Inject/Drain Joint/Bursa Major W/O US Completed 10/30/2018 98559 EKG Tracing & Interpretation Completed 08/19/2018 03938 ECHO Transthoracic, Real-Time 2D With Doppler And Color Completed Flow 08/19/2018 20758 ECHO Transthoracic, Real-Time 2D With Doppler And Color Completed Flow 05/20/2018 [id number] Mammogram Completed 03/12/2017 [id number] Mammogram Completed 12/21/2015 [id number] Mammogram Completed 12/15/2014 [id number] Mammogram Completed 02/17/2014 [id number] Colonoscopy Completed 11/18/2013 [id number] Mammogram Completed 12/26/2011 [id number] Mammogram Completed 08/24/2010 [id number] Colonoscopy Completed Medical Devices Description No Information Available Encounters Type Date Location Provider Dx Diagnosis Office Visit 12/23/2018 [facility] Ruthie Pickard MD F33.0 Major depressive 9:40a Medicine - Ccmob disorder, recurrent, mild Office Visit 11/19/2018 [facility] Ruthie Pickard MD R63.5 Abnormal weight 9:20a Medicine - Ccmob gain F33.0 Major depressive disorder, recurrent, mild Office Visit 10/31/2018 Orthopedic Quentin Sanders, M19.012 Primary 9:30a Services Of osteoarthritis, left C.M.A. shoulder M75.42 Impingement syndrome of left shoulder Office Visit 10/30/2018 10:40a [facility] Elizabeth R60.9 Edema, unspecified Medicine [...] Z98.1 Arthrodesis status Office Visit 08/06/2018 4:20p [facility] Ruthie Pickard, A37.90 Whooping cough, Medicine - MD unspecified Suite R species without pneumonia Assessments Date Code Description Provider 02/04/2019 M19.012 Primary osteoarthritis, left shoulder Quentin [...] 10/30/2018 R06.02 Shortness of breath Elizabeth Marker, [facility] 10/30/2018 M54.5 Low back pain Elizabeth Marker, [facility] 10/30/2018 R63.1 Polydipsia Elizabeth Marker, [facility] 10/08/2018 M54.5 Low back pain Parker Reis M.D. 10/08/2018 G43.009 Migraine without aura, not Parker Reis M.D. intractable, without status migra 10/08/2018 R42 Dizziness and giddiness Parker Reis M.D. 10/08/2018 R94.02 Abnormal brain scan Parker Reis M.D. 10/08/2018 L03.311 Cellulitis of abdominal wall Parker Reis M.D. 08/20/2018 M19.012 Primary osteoarthritis, left shoulder Quentin Sanders MD 08/20/2018 M75.42 Impingement syndrome of left shoulder Quentin Sanders MD 08/19/2018 R60.9 Edema, unspecified Elena Landa M.D. 08/19/2018 R60.9 Edema, unspecified [place] [facility] Schedule 08/19/2018 G47.33 Obstructive sleep apnea (adult) [place] [facility] Schedule (pediatric) 08/19/2018 J45.909 Unspecified asthma, uncomplicated [place] [facility] Schedule 08/14/2018 M47.896 Other spondylosis, lumbar region Renan Nam MD 08/14/2018 Z98.1 Arthrodesis status Renan Nam MD 08/06/2018 A37.90 Whooping cough, unspecified species Ruthie Pickard MD without pneumonia Plan of Treatment Future Appointment(s):02/05/2019 10:40 am - Ruthie Pickard MD at [facility]/09/2019 3:30 pm - Parker Reis M.D. at [facility]02/04/2019 - Quentin Sanders, MDM19.012 Primary osteoarthritis, left shoulderNew Xrays:MRI Shoulder Left W/O, Ordered: Follow up:Follow up: after MRIM75.42 Impingement syndrome of left shoulder Functional Status Description No Information Available Mental Status Description No Information Available Referrals Refer to Reason for Referral Status Appt Date Francia Medina, TATIANA please evaluate pt with hx of depression Scheduled 05/2018 and disordered eating, recent 30 lbs weight gain after removing lap band in August, possible binge eating disorder LMTCB to schedule 12/[address] [place] [id number] [phone]
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
--- OUTSIDE RECORDS SUMMARY | 2019-03-24 08:35 | XMS REPORT | Continuity of Care Document ---
:1960 External Reference #:[id number] Author Name Quentin Sanders MD (transmitted by agent of provider Stephanie Kinsey) Address [address] [facility], [place] [address] Care Team Providers Name Role Phone Bart Shahid MD - Neurological Care Team Information Chef De [facility] - Care Team Information Chef De Froid [phone] Urology [facility] - Care Team Information Chef De Froid Clip Loading Machine Adjuster Hallie Bolton MD - Gastroenterology Care Team Information Chef De Froid [phone] [facility] - [facility] Care Team Information Chef De Froid [phone] Diagnostic Danny Jordan MD - Physical Care Team Information [facility] Medicine & Rehabilitation Ruthie Pickard M.D. - Family Medicine Care Team Information Chef De Froid Problems Active Problems Provider Date Mild recurrent [...] Unknown Never Smoked Cigarettes Smoking Status Reviewed: 02/25/19 Never Smoked Cigarettes ETOH Use Denies alcohol [...] Hydrocodone-Acetaminophe 1 tab every 8h 60tabs M54.2 [place] 10/24/2017 n as needed Karol Samson 5-325mg [...] Samson History Medications Bupropion ( Not Taking Side [...] CPT Code Status Date Vaccine Lot # [id number] Given 02/05/2018 Influenza Virus Vaccine, Quadrivalent, Split, [id number] Preservative Free 11498 Given 09/28/2015 Pneumonia Vaccine [id number] Given 03/31/2014 Flu Vaccine Split Virus Preservative Free For [id number] Indiv 3Yr Older Vital Signs Date Vital Result Comment 02/25/2019 10:02am Height 65 inches 5'5" Weight 250.00 lb Heart Rate 78 /min BP Systolic 130 mmHg BP Diastolic 72 mmHg Body Temperature 98.1 F Pain Level 4 BMI (Body Mass Index) 41.6 kg/m2 02/05/2019 10:41am Height 65 inches 5'5" Weight 252.00 lb Heart Rate 82 /min BP Systolic Sitting 115 mmHg BP Diastolic Sitting 78 mmHg O2 % BldC Oximetry 97 % BMI (Body Mass Index) 41.9 kg/m2 Results Test Date Facility Test Result H/L Range Note CBC Auto 10/30/2018 [facility] White Blood 5.1 10^3/uL Normal 3.5-10.[address] [place] [address] [phone] Red Blood Count 4.22 10^6/uL Normal 3.70-4.87 [...] Blood Cells % 0.1 Comp Metabolic 10/30/2018 [facility] Sodium 142 mmol/L Normal 135-[address] [place] [address] [phone] Potassium 4.2 mmol/L Normal 3.5-5.0 Chloride 108 [...] >60 Egfr 101.0 >60 1 Laboratory 10/30/2018 [facility] TSH (Thyroid 1.64 Normal 0.34 -5.[address] Stim Horm) mcIU/[place] [address] [phone] B-Type Natriuretic Peptide BNP 31 pg/mL <=100 Hemoglobin A1c (Glyco HGB) 6.0 % High 4.0-5.6 2 CBC Auto 09/24/2018 [facility] White Blood 5.1 10^3/uL Normal 3.5-10.[address] [place] [address] [phone] Red Blood Count 4.19 10^6/uL Normal 3.70-4.87 [...] Blood Cells % 0.1 Laboratory test 09/24/2018 [facility] Lactic Acid 1.6 mmol/L Normal 0.5-2.0 3 finding [address] [place] [address] [phone] Comp Metabolic 09/24/2018 [facility] Sodium 139 mmol/L Normal 135-145 Panel [address] [place] [address] [phone] Potassium 3.9 mmol/L Normal 3.5-5.0 Chloride 104 [...] Egfr 96.4 >60 4 Laboratory test 09/24/2018 [facility] Magnesium 1.9 mg/dL Normal 1.9-2.[address] [place] [address] [phone] Amylase 70 U/L Normal 29-103 Lipase 51 U/L Normal 11.0-82.0 C Reactive Protein 6.36 mg/L Normal <8.01 Urinalysis Profile 09/24/2018 [facility] Urine Color Straw [address] [place] [address] [phone] Urine Appearance Clear Urine Specific [place] 1.025 Normal 1.010-1.030 Urine pH 7.0 Normal 5-9 Urine Urobilinogen Negative Negative Urine Ketones Negative Negative Urine Protein Negative Negative Urine Leukocytes Negative Negative Urine Blood 1+ Abnormal Negative Urine Nitrite Negative Negative Urine Bilirubin Negative Negative Urine Glucose Negative Negative Urine White Blood Cell Absent Absent Urine Red Blood Cell Trace(0-2/hpf) Absent Urine Bacteria Absent Absent Laboratory test 09/24/2018 [facility] Blood SEE RESULT [address] [place] [address] [phone] Inr/Protime 09/24/2018 [facility] Inr 0.91 Normal 0.82- [address] 1.09 [place] [address] [phone] Laboratory test 09/24/2018 [facility] Partial 30.5 seconds Normal 26.0- finding [address] Thrombo Time 36.3 [place] [address] PTT [phone] Ammonia 48 mcmol/L Normal 16-53 1 Because [...] in selective patients <6.0%. Please refer to [place] [employer] diabetic care guidelines for further information. 3 [facility] Severe Sepsis and Septic Shock Management [...] [address]: Cira Ng MD Acct: [id number] Unit: [id number] AGE: 58 Location: ED Re09/24/18 SEX: F Status: DEP ER SPEC: [id number] HASEEB: 09/24/18 [facility] [address]: Mohit Ng MD REQ: [id number] RECD: 09/24/18 STATUS: CELIA ERNANDEZ DR: Elizabeth Brooks PA _ SOURCE: BLOOD,VENO SPDES: ORDERED: Blood Cult Procedure Result Reported Site Aerobic Culture Bottle Final 09/29/18- 9 ML No Growth Day 5 Anaerobic Culture Bottle Final 09/29/18- 1009 ML No Growth Day 5 * ML - Main Lab . END OF REPORT DEPARTMENT OF PATHOLOGY, [address] [place] [address] Wayne Duff M.D. Director [facility] # [id number] 6 Standard intensity warfarin therapeutic range: 2.0-3.0 High intensity warfarin therapeutic range: 2.5-3.5 Procedures Date Code Description Status 11/26/2018 93639 Inject/Drain Joint/Bursa Major W/O US Completed 10/30/2018 00984 EKG Tracing & Interpretation Completed 05/20/2018 [id number] Mammogram Completed 03/12/2017 [id number] Mammogram Completed 12/21/2015 [id number] Mammogram Completed 12/15/2014 [id number] Mammogram Completed 02/17/2014 [id number] Colonoscopy Completed 11/18/2013 [id number] Mammogram Completed 12/26/2011 [id number] Mammogram Completed 08/24/2010 [id number] Colonoscopy Completed Medical Devices Description No Information Available Encounters Type Date Location Provider Dx Diagnosis Office Visit 02/05/2019 Sharath Pickard MD F33.0 Major depressive 10:40a Medicine - Ccm[facility] disorder, recurrent, mild R19.7 Diarrhea, unspecified R63.5 Abnormal weight gain Office Visit 02/04/2019 Kim Saavedra M19.012 Primary 9:45a Orthopedics at [facility] osteoarthritis, left [place] shoulder M75.42 Impingement syndrome of left shoulder Office Visit 12/23/2018 9:40a [facility] Gayatri Pickard MD F33.0 Major depressive Medicine - Ccmob disorder, recurrent, mild Office Visit 11/19/2018 9:20a Sharath Pickard MD R63.5 Abnormal weight Medicine - Ccmob gain F33.0 Major depressive disorder, recurrent, mild Office Visit 10/31/2018 Kim Saavedra M19.012 Primary 9:30a [facility]oped[facility] at [facility] osteoarthritis, left [place] shoulder M75.42 Impingement syndrome of left shoulder Office Visit 10/30/2018 10:40a [facility] Internal Elizabeth R60.9 Edema, unspecified Medicine - Ccmob Marker, RPA-C R06.02 Shortness of breath M54.5 Low back pain R63.1 Polydipsia Office Visit 10/08/2018 9:15a Neurohospitalist Parker Reis, M54.5 Low back Clinic M.D. pain G43.009 Migraine w/o aura, not intractable, w/o status migrainosus R42 Dizziness and giddiness R94.02 Abnormal brain scan L03.311 Cellulitis of abdominal wall Assessments Date Code Description Provider 02/25/2019 M19.012 Primary osteoarthritis, left shoulder Quentin [...] M.D. 10/30/2018 R60.9 Edema, unspecified Elizabeth Marker, [facility] 10/30/2018 R06.02 Shortness of breath Ammy Reardon M.D. 10/30/2018 R06.02 Shortness of breath Elizabeth Marker, [facility] 10/30/2018 M54.5 Low back pain Elizabeth Marker, [facility] 10/30/2018 R63.1 Polydipsia Elizabeth Marker, [facility] 10/08/2018 M54.5 Low back pain Parker Reis M.D. 10/08/2018 G43.009 Migraine without aura, not intractable, Parker Reis M.D. without status migra 10/08/2018 R42 Dizziness and giddiness Parker Reis M.D. 10/08/2018 R94.02 Abnormal brain scan Parker Reis M.D. 10/08/2018 L03.311 Cellulitis of abdominal wall Parker Reis M.D. Plan of Treatment Future Appointment(s):04/09/2019 12:30 pm - Quentin Sanders MD at [facility] [place]/07/2019 8:40 am - Ruthie Pickard MD at [facility] Internal Medicine - [facility]02/27/2019 9:45 am - Francia Medina LMSW at [facility] Internal Medicine - [facility]10/09/2019 3:30 pm - Parker Reis M.D. at [facility]02/25/2019 - Quentin Sanders, MDM19.012 Primary osteoarthritis, left qmhhvasnH91.012D Strain of muscle(s) and tendon(s) of the rotator cuff of left shoulder, subsequent encounterFollow up:Follow up: for h and p Functional Status Description No Information Available Mental Status Description No Information Available Referrals Refer to Dr Reason for Referral Status Appt Date [facility] pt with continued weight gain, Sent needs dietary counseling Seen in August. Will call pt to schedule. 02/24 [address] [place], [place] [id number] [phone] Francia Medina LMSW please evaluate pt with hx of depression Scheduled 05/2018 and disordered eating, recent 30 lbs weight gain after removing lap band in August, possible binge eating disorder LMTCB to schedule 12/[address] [place] [address] [address] [place], [place] [address] [phone]
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
[2019-03-24 08:37] VITALS: BP 116/69
--- NOTE | 2019-03-24 09:04 | UC ---
Respiratory Complaint HPI - HPI Summary HPI Summary: Patient's is 59-year-old female who has complex medical history including hypertension, chronic back pain after multiple surgeries, and asthma with environmental sensitivities. Patient states last she was exposed to cigarette smoke. Patient states she did over the weekend developed increased cough and wheeze. Patient states she's got head congestion and ear pain. Patient was as congestion postnasal drip. Patient has taken Tylenol for tactile fevers. Patient has not taken any medicines today. Patient has not tried her inhaler. Patient states her 4-year-old grandson who lives with her has also been sick. Patient did travel to use any recently and does not know she is exposed to flu. Patient did not get the flu vaccine. Patient without any rashes. Patient states she just feels congested throughout. Patient's medications reviewed this visit. - History of Current Complaint Chief Complaint: UCRespiratory Stated Complaint: COUGH RESP ISSUE DIARRHEA Time Seen by Provider: 03/24/19 09:00 Hx Obtained From: Patient, Medical Records Hx Last Menstrual Period: age 50 ?: No Onset/Duration: Gradual Onset Pain Intensity: 6 Pain Scale Used: 0-10 Numeric Character: Cough: Productive - Yellow - Allergies/Home Medications Allergies/Adverse Reactions: Allergies Allergy/AdvReac Type Severity Reaction Status Date / Time cephalexin [From Keflex] Allergy Severe throat Verified 03/24/19 08:38 swells closed morphine Allergy Severe Abdominal Verified 03/24/19 08:38 Pain oxycodone [From Percocet] Allergy Severe Airway Verified 03/24/19 08:38 Obstruction Penicillins Allergy Severe Airway Verified 03/24/19 08:38 Obstruction Sulfa (Sulfonamide Allergy Severe Airway Verified 03/24/19 08:38 Antibiotics) Obstruction tigecycline [From Tygacil] Allergy Severe throat Verified 03/24/19 08:38 closes, hives Adhesive Tape Allergy Intermediate Rash Verified 03/24/19 08:38 hydromorphone AdvReac Severe Vomiting Verified 03/24/19 08:38 phenytoin [From Dilantin] AdvReac See Comment Verified 03/24/19 08:38 Home Medications: Home Medications DULoxetine DR CAP* [Cymbalta CAP*] 40 mg PO DAILY 03/24/19 [History Confirmed ] PMH/Surg Hx/FS Hx/Imm Hx - Additional Past Medical History Additional PMH: Chronic back pain status post 3 surgeries and gets serial injections last injection was last week 03/18 Previously Healthy: Yes Cardiovascular History: Hypertension Respiratory History: Asthma Other History Of: Negative For: Anticoagulant Therapy - Surgical History Surgical History: Yes Surgery Procedure, Year, and Place: LUMBAR SURGERY X 3 - 2013 -W/ CAGE/WALTER & PINS/FUSION. GALLBLADDER REMOVED ;. TONSILECTOMY ;. TUBAL LIGATION ;. LAPBAND 2007 AND REVISION 2010;and removed 2018. SKIN CA REMOVED FROM NOSE - [place] (15 PLUS STITCHES AND INVASIVE) PT HAVING STITCHES REMOVED ON 07/31/18 . POLYPS/CYSTS REMOVED FRON UTERUS & CERVIX ;. ANAL FISSURE;. PINKY FINGER RIGHT CUT TENDON/REPAIR ;. MASS ON OUTSIDE OF CERVIX REMOVED 04/17 - Family History Known Family History: Positive: Other - mother and sister have gout, Non- Contributory Negative: Diabetes - Social History Occupation: Disabled Lives: With Family - Grandson and daughter live with her Alcohol Use: None Substance Use Type: None Smoking Status (MU): Never Smoked Tobacco Review of Systems All Other Systems Reviewed And Are Negative: Yes Constitutional: Positive: Fever - Tactile, Fatigue ENT: Positive: Ear Ache, Nasal Discharge, Sinus Congestion, Sinus Pain/ Tenderness Respiratory: Positive: Cough, Other - Wheeze Is Patient Immunocompromised?: No Physical Exam - Summary Physical Exam Summary: Vital Signs Reviewed: Yes A+Ox3, tired appearing, occasional cough Eyes: Conjunctiva Clear, BHARAT. EOM intact and full ENT: Hearing grossly normal TM x 2 clear, turbinates inflammed and boggy, + PND , mmoist, uvula midline, no exudate, no erythema Neck: Positive: Supple Respiratory: Positive: Few scattered wheeze, cough, + BS throughout Cardiovascular: RRR nl s1, s2 no m/r CBT <2 sec abd soft + BS nt/nd no guarding, no distension Musculoskeletal Exam: MONTG[place] x 4 without difficulty Strength Intact, ROM Intact Neurological: Positive: Alert, + sensation throughout Psychological: Positive: Normal Response To examiner Skin: Positive: no rash, no ecchymosis Triage Information Reviewed: Yes Vital Signs: Initial Vital Signs Temp 99.6 F 03/24/19 08:33 Pulse 83 03/24/19 08:33 Resp 17 03/24/19 08:33 BP 116/69 03/24/19 08:33 Pulse Ox 98 03/24/19 08:33 Re-Evaluation - Re-Evaluation First Eval Change: Improved - Pt improved following neb treatment few scatttered wheeze remain will give abx - pt has tolerated zithromax in past secretion precaution influenza neg f/u with pcp pt comfortable and in agreement with plan Respiratory Course/Dx - Course Course Of Treatment: Patient presents to urgent care with 5 days progressive congestion in her head and chest. Patient with ear fullness. Patient with cough and wheeze. Patient does have a history of asthma and states her symptoms increased after she was exposed to smoke. Patient denies chills but states she's had tactile fevers. Patient's vital signs reviewed. Patient with postnasal drip and congestion. Patient does have cough and transfuse scattered wheeze. We'll give DuoNeb. We' ll check for flu. Anticipate antibiotics. We'll hold on prednisone this patient had spinal injection of steroids last week. We'll reassess after neb. Patient comfortable agreeable to plan. Patient does have albuterol MDI at home. Patient states she just got a refill last week. - Differential Dx/Diagnosis Provider Diagnosis: Acute bronchitis, Upper respiratory infection Discharge ED - Sign-Out/Discharge Documenting (check all that apply): Patient Departure All imaging exams completed and their final reports reviewed: No Studies - Discharge Plan Condition: Stable Disposition: HOME Prescriptions: Azithromycin TAB* [Zithromax TAB (Z-ELDER) 250 mg #6 tabs] 2 tab PO .TODAY, THEN 1 DAILY #1 elder Patient Education Materials: Upper Respiratory Infection (ED), Acute Bronchitis (ED) Referrals: Ruthie Pickard MD [Primary Care Provider] - Additional Instructions: -Take antibiotics exactly as prescribed until gone -Use your albuterol puffer - 2 puffs every 4 hours for the next 2 days - then as needed - take antibiotics as prescribed -Stay well hydrated - avoid excess caffeine and all alcohol - eat regular, healthy meals - - humidify the air in the room where you sleep - boil water, run a hot steam shower, vaporizer, cups of water by heat register - okay to take over the counter decongestant and cough medication -- These infections are spread by secretions - do NOT share eating or drinking utensils - clean items you share with other people such as cell phones, computer mouse, TV remote, computer tablets,etc.. Once you have been antibiotics for 2 days, change your toothbrush and your pillowcase. -Contact your doctor to arrange a follow-up appointment this week. Call your doctor, return here or go to the emergency department with any questions or concerns - Billing Disposition and Condition Condition: STABLE Disposition: Home
[2019-03-24] MEDS ORDERED: Albuterol/Ipratropium NEB.SOL* Albuterol 2.5 MG/Ipratropium 0.5 MG 3 ML INH ONE (09:15)
[2019-03-24 09:37] LABS: Influenza A Molecular NEGATIVE (Negative); Influenza B Molecular NEGATIVE (Negative)
== END 2019-03-24 09:53 | disposition home or self-care (01) ==
LOC: UCEAST 08:27
DX: J20.9 Acute bronchitis, unspecified (principal); J06.9 Acute upper respiratory infection, unspecified; G89.29 Other chronic pain; I10 Essential (primary) hypertension; J45.909 Unspecified asthma, uncomplicated; H92.09 Otalgia, unspecified ear; Z88.1 Allergy status to other antibiotic agents; Z88.5 Allergy status to narcotic agent; Z88.0 Allergy status to penicillin; Z88.2 Allergy status to sulfonamides; Z88.6 Allergy status to analgesic agent; Z88.8 Allergy status to other drugs, medicaments and biological substances; Z91.09 Other allergy status, other than to drugs and biological substances; Z79.899 Other long term (current) drug therapy
CPT/HCPCS: 99212; A9270-GY; G0463

== ENCOUNTER 2019-04-03 19:45 | Emergency (ER) | payer OTHER ==
--- OUTSIDE RECORDS SUMMARY | 2019-04-03 19:51 | XMS REPORT | Continuity of Care Document ---
:1960 External Reference #:[id number] Author Name Quentin Sanders MD (transmitted by agent of provider Mary Starr) Address [address] [facility], [place] [address] Care Team Providers Name Role Phone Bart Shahid MD - Neurological Care Team Information Operations Manager/Coordinator Surgery [facility] - Care Team Information Operations Manager/Coordinator Urology [facility] - Care Team Information Operations Manager/Coordinator [phone] Operations Agent Hallie Bolton MD - Gastroenterology Care Team Information Operations Manager/Coordinator [facility] - Sleep Disorder Care Team Information Operations Manager/Coordinator Diagnostic Danny Jordan MD - Physical Care Team Information Operations Manager/Coordinator Medicine & Rehabilitation Ruthie Pickard M.D. - Family Medicine Care Team Information Operations Manager/Coordinator Problems Active Problems Provider Date Mild recurrent [...] Unknown Never Smoked Cigarettes Smoking Status Reviewed: 03/25/19 Never Smoked Cigarettes ETOH Use Denies alcohol [...] a day 8.800gm Constance Haji, 200-5mcg/Act Aerosol Azithromycin two tabs day Unknown 250mg Tablets one, one daily till gone History Medications Bupropion ( Not Taking Side 30tabs F33.0 Ruthie Pickard MD 11/19/2018 - Hydrochloride ER (SR) Effects) 1 by 12/23/2018 mouth a day in am 150mg Tablets ER 12HR Flexeril Three Times Daily 9tabs Unknown 10/21/2018 - Repack 11/19/2018 10mg Tablets Clindamycin HCL Three Times Daily 21caps Unknown 09/24/2018 - 300mg 11/18/2018 Capsules Medications Administered in Office Medication SIG Qnty Indications Ordering Provider Date Triamcinolone (Kenalog) Quentin Sanders MD 11/26/2018 Injection Triamcinolone (Kenalog) Quentin Sanders MD 07/02/2018 Injection Depomedrol 40MG Ly Varela M.D. 04/17/2018 Injection Triamcinolone (Kenalog) Quentin Sanders MD 11/20/2017 Injection Immunizations CPT Code Status Date Vaccine Lot # [id number] Given 02/05/2018 Influenza Virus Vaccine, Quadrivalent, Split, [id number] Preservative Free [id number] Given 09/28/2015 Pneumonia Vaccine [id number] Given 03/31/2014 Flu Vaccine Split Virus Preservative Free For [id number] Indiv 3Yr Older Vital Signs Date Vital Result Comment 03/25/2019 10:56am Height 65 inches 5'5" Weight 254.00 lb Heart Rate 78 /min BP Systolic 128 mmHg BP Diastolic 76 mmHg Body Temperature 98.4 F Pain Level 5 BMI (Body Mass Index) 42.3 kg/m2 03/13/2019 8:08am Height 65 inches 5'5" Weight 259.00 lb Heart Rate 85 /min BP Systolic Sitting 123 mmHg BP Diastolic Sitting 81 mmHg O2 % BldC Oximetry 94 % BMI (Body Mass Index) 43.1 kg/m2 Results Test Acquired Date Facility Test Result H/L Range Note Rapid Influenza 03/24/2019 [facility] Influenza A NEGATIVE Negative 1 A & B Molecular [address] [place] [address] [phone] Influenza B Molecular NEGATIVE Negative CBC Auto 03/17/2019 [facility] White Blood 4.4 10^3/uL Normal 3.5-10.[address] [place] [address] [phone] Red Blood Count 4.29 10^6/uL Normal 3.70-4.87 Hemoglobin 14.1 g/dL Normal 12.0-16.0 Hematocrit 41 % Normal 35-47 Mean Corpuscular Volume 96 fL Normal 80-97 Mean Corpuscular Hemoglobin 33 pg High 27-31 Mean Corpuscular HGB Conc 34 g/dL Normal 31-36 Red Cell Distribution Width 15 % Normal 10-15 Platelet Count 198 10^3/uL Normal 150-450 Mean Platelet Volume 9.0 fL Normal 7.4-10.4 Abs Neutrophils 2.0 10^3/uL Normal 1.5-7.7 Abs Lymphocytes 1.7 10^3/uL Normal 1.0-4.8 Abs Monocytes 0.5 10^3/uL Normal 0-0.8 Abs Eosinophils 0.1 10^3/uL Normal 0-0.6 Abs Basophils 0.0 10^3/uL Normal 0-0.2 Abs Nucleated RBC 0.0 10^3/uL Granulocyte % 46.3 % Lymphocyte % 37.9 % Monocyte % 12.1 % Eosinophil % 2.8 % Basophil % 0.9 % Nucleated Red Blood Cells % 0.1 Comp Metabolic 03/17/2019 [facility] Sodium 138 mmol/L Normal 135-[address] [place] [address] [phone] Potassium 4.3 mmol/L Normal 3.5-5.0 Chloride 105 mmol/L Normal 101-111 Co2 Carbon Dioxide 29 mmol/L Normal 22-32 Anion Gap 4 mmol/L Normal 2-11 Glucose 129 mg/dL High 70-100 Blood Urea Nitrogen 12 mg/dL Normal 6-24 Creatinine 0.76 mg/dL Normal 0.51-0.95 BUN/Creatinine Ratio 15.8 Normal 8-20 Calcium 9.3 mg/dL Normal 8.6-10.3 Total Protein 6.2 g/dL Low 6.4-8.9 Albumin 3.9 g/dL Normal 3.2-5.2 Globulin 2.3 g/dL Normal 2-4 Albumin/Globulin Ratio 1.7 Normal 1-3 Total Bilirubin 0.40 mg/dL Normal 0.2-1.0 Alkaline Phosphatase 65 U/L Normal 34-104 Alt 28 U/L Normal 7-52 Ast 21 U/L Normal 13-39 Egfr Non- 78.2 >60 Egfr 94.6 >60 2 Laboratory 03/17/2019 [facility] TSH (Thyroid 2.56 Normal 0.34 -5.[address] Stim Horm) mcIU/[place] [address] [phone] Urinalysis 03/17/2019 [facility] Urine Color Yellow Profile [address] [place] [address] [phone] Urine Appearance Cloudy Urine Specific [place] 1.019 Normal 1.010-1.030 Urine pH 5.0 Normal 5-9 Urine Urobilinogen Negative Negative Urine Ketones Negative Negative Urine Protein Negative Negative Urine Leukocytes Trace Abnormal Negative Urine Blood 3+ Abnormal Negative Urine Nitrite Negative Negative Urine Bilirubin Negative Negative Urine Glucose Negative Negative Urine White Blood Cell 2+(11-20/hpf) Abnormal Absent Urine Red Blood Cell 3+(>10/hpf) Abnormal Absent Urine Bacteria 1+ Abnormal Absent Urine Squamous Epithelial Cell Present Abnormal Absent Urine Culture And 03/17/2019 [facility] Urine SEE RESULT [address] [place] [address] [phone] Laboratory test 10/30/2018 [facility] TSH (Thyroid 1.64 Normal 0.34- finding [address] Stim Horm) mcIU/mL 5.60 [place] [address] [phone] B-Type Natriuretic Peptide BNP 31 pg/mL <=100 Hemoglobin A1c (Glyco HGB) 6.0 % High 4.0-5.6 4 Comp Metabolic 10/30/2018 [facility] Sodium 142 mmol/L Normal 135-[address] [place] [address] [phone] Potassium 4.2 mmol/L Normal 3.5-5.0 Chloride 108 [...] Egfr Non- 83.5 >60 Egfr 101.0 >60 5 CBC Auto 10/30/2018 [facility] White Blood 5.1 10^3/uL Normal 3.5-10.[address] [place] [address] [phone] Red Blood Count 4.22 10^6/uL Normal 3.70-4.87 [...] % Nucleated Red Blood Cells % 0.1 CBC Auto 09/24/2018 [facility] White Blood 5.1 10^3/uL Normal 3.5-10.[address] [place] [address] [phone] Red Blood Count 4.19 10^6/uL Normal 3.70-4.87 [...] Blood Cells % 0.1 Laboratory test 09/24/2018 [facility] Lactic Acid 1.6 mmol/L Normal 0.5-2.0 [address] [place] [address] [phone] Comp Metabolic 09/24/2018 [facility] Sodium 139 mmol/L Normal 135-[address] [place] [address] [phone] Potassium 3.9 mmol/L Normal 3.5-5.0 Chloride 104 [...] Egfr Non- 79.6 >60 Egfr 96.4 >60 7 Laboratory test 09/24/2018 [facility] Magnesium 1.9 mg/dL Normal 1.9-2.7 finding [address] [place] [address] [phone] Amylase 70 U/L Normal 29-103 Lipase 51 U/L Normal 11.0-82.0 C Reactive Protein 6.36 mg/L Normal <8.01 Urinalysis Profile 09/24/2018 [facility] Urine Color Straw [address] [place] [address] [phone] Urine Appearance Clear Urine Specific [place] 1.025 Normal 1.010-1.030 Urine pH 7.0 Normal 5-9 Urine Urobilinogen Negative Negative Urine Ketones Negative Negative Urine Protein Negative Negative Urine Leukocytes Negative Negative Urine Blood 1+ Abnormal Negative Urine Nitrite Negative Negative Urine Bilirubin Negative Negative Urine Glucose Negative Negative Urine White Blood Cell Absent Absent Urine Red Blood Cell Trace(0-2/hpf) Absent Urine Bacteria Absent Absent Laboratory test 09/24/2018 [facility] Blood SEE RESULT [address] [place] [address] [phone] Inr/Protime 09/24/2018 [facility] Inr 0.91 Normal 0.82- [address] 1.09 [place] [address] [phone] Laboratory test 09/24/2018 [facility] Partial 30.5 seconds Normal 26.0- finding [address] Thrombo Time 36.3 [place] [address] PTT [phone] Ammonia 48 mcmol/L Normal 16-53 1 Die Cleaner: [id number] 2 Because ethnic data is not always [...] 5 Kidney failure <15 (or dialysis) 3 SEE RESULT BELOW Name: KEENA COATES : [address]: Constance Haji MD Acct: [id number] Unit: [id number] AGE: 59 Location: LAB Re03/17/19 SEX: F Status: REG REF SPEC: [id number] HASEEB: 03/17/[address]: Constance Haji MD REQ: [id number] RECD: 03/17/19 STATUS: COMP _ SOURCE: URINE [facility]: ORDERED: Urine Culture Procedure Result Reported Site Urine Culture Final 03/18/1953 ML No Growth (<1,000 CFU/mL) * ML - Main Lab . END OF REPORT DEPARTMENT OF PATHOLOGY, [address] [place] [address] Wayne Duff M.D. Director [facility] # [id number] 4 Therapeutic target for the treatment of diabetes mellitus patients is <7% HBA1C, and in selective patients <6.0%. Please refer to [place] [employer] diabetic care guidelines for further information. 5 Because ethnic data is not always [...] 5 Kidney failure <15 (or dialysis) 6 [facility] Severe Sepsis and Septic Shock Management Bundle Measure requires all lactic acids initially measuring >2.0 mmol/L be repeated. 7 Because ethnic data is not always readily [...] 15-29 5 Kidney failure <15 (or dialysis) 8 SEE RESULT BELOW Name: KEENA COATES : [address]: Cira Ng MD Acct: [id number] Unit: [id number] AGE: 58 Location: ED Re09/24/18 SEX: F Status: DEP ER SPEC: [id number] HASEEB: 09/24/[address] [facility] [address]: Mohit Ng MD REQ: [id number] RECD: 09/24/18 STATUS: CELIA ERNANDEZ DR: Elizabeth Brooks PA _ SOURCE: BLOOD,VENO SPDESC: ORDERED: Blood Cult Procedure Result Reported Site Aerobic Culture Bottle Final 09/29/18- 1009 ML No Growth Day 5 Anaerobic Culture Bottle Final 09/29/18- 1009 ML No Growth Day 5 * ML - Main Lab . END OF REPORT DEPARTMENT OF PATHOLOGY, [address] [place] [id number] Wayne Duff M.D. Director [facility] # [id number] Standard intensity warfarin therapeutic range: 2.0-3.0 High intensity warfarin therapeutic range: 2.5-3.5 Procedures Date Code Description Status 11/26/2018 23707 Inject/Drain Joint/Bursa Major W/O US Completed 10/30/2018 54992 EKG Tracing & Interpretation Completed 05/20/2018 [id number] Mammogram Completed 03/12/2017 [id number] Mammogram Completed 12/21/2015 [id number] Mammogram Completed 12/15/2014 [id number] Mammogram Completed 02/17/2014 [id number] Colonoscopy Completed 11/18/2013 [id number] Mammogram Completed 12/26/2011 [id number] Mammogram Completed 08/24/2010 [id number] Colonoscopy Completed Medical Devices Description No Information Available Encounters Type Date Location Provider Dx Diagnosis Office Visit 02/25/2019 [facility] Quentin Sanders MD M19.012 Primary 10:15a at [place] osteoarthritis, left shoulder S46.012D Strain of musc/tend the rotator cuff of left shoulder, subs Office Visit 02/05/2019 10:40a Sharath Pickard MD F33.0 Major depressive Medicine - Ccmob disorder, recurrent, mild R19.7 Diarrhea, unspecified R63.5 Abnormal weight gain Office Visit 02/04/2019 Kim Saavedra M19.012 Primary 9:45a Orthopedics at [facility] osteoarthritis, left [place] shoulder M75.42 Impingement syndrome of left shoulder Office Visit 12/23/2018 9:40a Sharath Pickard MD F33.0 Major depressive Medicine - Ccmob disorder, recurrent, mild Office Visit 11/19/2018 9:20a Sharath Pickard MD R63.5 Abnormal weight Medicine - Ccmob gain F33.0 Major depressive disorder, recurrent, mild Office Visit 10/31/2018 Kim Saavedra M19.012 Primary 9:30a Orthopedics at [facility] [place] osteoarthritis, left [place] shoulder M75.42 Impingement syndrome of left shoulder [...] abdominal wall Assessments Date Code Description Provider 03/25/2019 M19.012 Primary osteoarthritis, left shoulder Quentin Sanders MD 03/25/2019 S46.012D Strain of muscle(s) and tendon(s) of the Quentin Sanders MD rotator cuff of left shoulder, subsequent encounter 03/13/2019 Z01.818 Encounter for other preprocedural Constance [...] M.D. 10/30/2018 R60.9 Edema, unspecified Elizabeth Marker, [facility] 10/30/2018 R06.02 Shortness of breath Ammy Reardon M.D. 10/30/2018 R06.02 Shortness of breath Elizabeth Marker, [facility] 10/30/2018 M54.5 Low back pain Elizabeth Marker, [facility] 10/30/2018 R63.1 Polydipsia Elizabeth Marker, [facility] 10/08/2018 M54.5 Low back pain Parker Reis M.D. 10/08/2018 G43.009 Migraine without aura, not intractable, Parker Reis M.D. without status migra 10/08/2018 R42 Dizziness and giddiness Parker Reis M.D. 10/08/2018 R94.02 Abnormal brain scan Parker Reis M.D. 10/08/2018 L03.311 Cellulitis of abdominal wall Parker Reis M.D. Plan of Treatment Future Appointment(s):04/09/2019 1:45 pm - Yuly Cole PA-C at [facility]04/09/2019 1:45 pm - Quentin Sanders MD at [facility] at [id number]/09/2019 3:30 pm - Parker Reis M.D. at [facility]03/25/2019 - Quentin Sanders, MDM19.012 Primary osteoarthritis, left shoulderFollow up:Follow up: 10-14 days post opS46.012D Strain of muscle(s) and tendon(s) of the rotator cuff of left shoulder, subsequent encounter Functional Status Description No Information Available Mental Status Description No Information Available Referrals Refer to Dr Reason for Referral Status Appt Date [facility] pt with continued weight gain, Closed 03/12 needs dietary counseling Seen in August. Will call pt to schedule. 02/[address] [place] [address] [address] [place] [address] [phone] Francia Medina, TATIANA please evaluate pt with hx of depression Scheduled 05/2018 and disordered eating, recent 30 lbs weight gain after removing lap band in August, possible binge eating disorder LMTCB to schedule 12/[address] [place] [address] [place] [address] [phone]
[2019-04-03 20:38] VITALS: BP 131/82
--- NOTE | 2019-04-03 20:51 | UC ---
Lower Extremity/Ankle HPI - HPI Summary HPI Summary: 59-year-old woman comes in with a chief complaint of right leg swelling and pain. Patient fell and struck her right lower leg on March 22, 2019. Since that time the leg is become more swollen and painful. The worst area of pain is in the right calf and also extends up into the right groin. She's quite a bit of pain with movement of the leg and palpation. She's feeling that the right leg is weaker than the left. She does have a history of back problems in the past and has had back surgeries although she reports her back pain is at its usual level. No complaint difficulty controlling urine or bowels. No history of DVT she's not on any blood thinners. - History of Current Complaint Chief Complaint: UCLowerExtremity Stated Complaint: LEG PAIN Time Seen by Provider: 04/03/19 20:29 Hx Last Menstrual Period: age 50 Pain Intensity: 8 - Allergies/Home Medications Allergies/Adverse Reactions: Allergies Allergy/AdvReac Type Severity Reaction Status Date / Time cephalexin [From Keflex] Allergy Severe throat Verified 04/03/19 20:26 swells closed morphine Allergy Severe Abdominal Verified 04/03/19 20:26 Pain oxycodone [From Percocet] Allergy Severe Airway Verified 04/03/19 20:26 Obstruction Penicillins Allergy Severe Airway Verified 04/03/19 20:26 Obstruction Sulfa (Sulfonamide Allergy Severe Airway Verified 04/03/19 20:26 Antibiotics) Obstruction tigecycline [From Tygacil] Allergy Severe throat Verified 04/03/19 20:26 closes, hives Adhesive Tape Allergy Intermediate Rash Verified 04/03/19 20:26 Perfume [Fragrance] Allergy Unknown Verified 04/03/19 20:26 Reaction Details hydromorphone AdvReac Severe Vomiting Verified 04/03/19 20:26 phenytoin [From Dilantin] AdvReac See Comment Verified 04/03/19 20:26 environmental Allergy Unknown Uncoded 04/03/19 20:26 Reaction Details PMH/Surg Hx/FS Hx/Imm Hx Previously Healthy: Yes Respiratory History: Asthma Other History Of: Negative For: Anticoagulant Therapy - Surgical History Surgical History: Yes Surgery Procedure, Year, and Place: LUMBAR SURGERY X 3 - 2012 -W/ CAGE/[facility]/FUSION. GALLBLADDER REMOVED ;. TONSILECTOMY ;. TUBAL LIGATION ;. LAPBAND 2007 AND REVISION 2010;and removed 2018. SKIN CA REMOVED FROM NOSE - [place] (15 PLUS STITCHES AND INVASIVE) PT HAVING STITCHES REMOVED ON 07/31/18 . POLYPS/CYSTS REMOVED FRON UTERUS & CERVIX ;. ANAL FISSURE;. PINKY FINGER RIGHT CUT TENDON/REPAIR ;. MASS ON OUTSIDE OF CERVIX REMOVED 04/17 - Family History Known Family History: Positive: Other - mother and sister have gout, Non- Contributory Negative: Diabetes - Social History Alcohol Use: None Substance Use Type: None Smoking Status (MU): Never Smoked Tobacco Review of Systems All Other Systems Reviewed And Are Negative: Yes Constitutional: Positive: Other - SEE HPI Skin: Positive: Other - SEE HPI Eyes: Positive: Negative ENT: Positive: Negative Respiratory: Positive: Negative Cardiovascular: Positive: Negative Gastrointestinal: Positive: Negative Motor: Positive: Other - SEE HPI Neurovascular: Positive: Other - SEE HPI Musculoskeletal: Positive: Other: - SEE HPI Neurological: Positive: Other - SEE HPI Psychological: Positive: Negative Is Patient Immunocompromised?: No Physical Exam Triage Information Reviewed: Yes Appearance: Well-Appearing, Well-Nourished, Pain Distress - MILD WITH ROM AND EXAM OF RT LEG Vital Signs: Initial Vital Signs Temp 97.4 F 04/03/19 20:29 Pulse 82 04/03/19 20:29 Resp 16 04/03/19 20:29 BP 131/82 04/03/19 20:29 Pulse Ox 95 04/03/19 20:29 Vital Signs Reviewed: Yes Eye Exam: Normal Eyes: Positive: Conjunctiva Clear Neck: Positive: Supple Respiratory: Positive: No respiratory distress Musculoskeletal: Positive: Other: - Patient's right calf is swollen and tender in the posterior aspect. Normal sensation normal capillary refill. She also some tenderness to palpation along the medial anterior thigh in the distribution of the femoral vein. Neurological: Positive: Alert Psychological: Positive: Age Appropriate Behavior Skin: Positive: Other - Patient does have pedal edema the right leg. No rash. Lower Extremity Course/Dx - Course Course Of Treatment: With the edema and the pain I'm concerned about the possibility of DVT and I recommended the patient go the emergency department for further evaluation as we do not have ultrasound here at this time. As far as the weakness is his current concerned at this time I will patient is no DVT and then do investigations into the weakness once again at the emergency department. - Differential Dx/Diagnosis Provider Diagnosis: Right leg pain, Leg edema, right Discharge ED - Sign-Out/Discharge Documenting (check all that apply): Patient Departure All imaging exams completed and their final reports reviewed: No Studies - Discharge Plan Condition: Stable Disposition: HOME-RECOMMEND TO ED Referrals: Ruthie Pickard MD [Primary Care Provider] - Additional Instructions: GO DIRECTLY TO THE EMERGENCY DEPARTMENT FOR FURTHER EVALUATION. - Billing Disposition and Condition Condition: STABLE Disposition: Home-Recommend to ED
== END 2019-04-03 21:00 | disposition home health service (06) ==
LOC: UCEAST 19:45
DX: M79.604 Pain in right leg (principal); R60.0 Localized edema; J45.909 Unspecified asthma, uncomplicated; Z88.1 Allergy status to other antibiotic agents; Z88.5 Allergy status to narcotic agent; Z88.0 Allergy status to penicillin; Z88.2 Allergy status to sulfonamides; Z88.8 Allergy status to other drugs, medicaments and biological substances; Z91.09 Other allergy status, other than to drugs and biological substances
CPT/HCPCS: 99212; G0463

== ENCOUNTER 2019-04-03 21:34 | Emergency (ER) | payer OTHER ==
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
[2019-04-03 23:59] VITALS: BP 137/97
== END 2019-04-03 23:55 | disposition home or self-care (01) ==
LOC: ED 21:34
DX: M79.661 Pain in right lower leg (principal); R60.0 Localized edema; F41.9 Anxiety disorder, unspecified; Z88.1 Allergy status to other antibiotic agents; Z88.5 Allergy status to narcotic agent; Z88.0 Allergy status to penicillin; Z88.2 Allergy status to sulfonamides; Z88.8 Allergy status to other drugs, medicaments and biological substances
CPT/HCPCS: 99282

== ENCOUNTER → 2019-04-09 10:57 | Day surgery (SDC) | payer OTHER ==
[~2019-04-09 10:57] MED LIST changes: +Buffered Lidocaine 1% SYRIN* 1 ML/SYRINGE INTRADERM ONE; +Clindamycin 900 MG/D5W BAG(*) 900 MG/50 ML BAG IVPB ONE; +Dexamethasone IV* 4 MG/ML 1 ML (4 MG) ONE; +DiMENhydriNATE IV* 50 MG/ML VIAL IV PUSH PRN; +DiMENhydriNATE IV* 50 MG/ML VIAL ONE; -Diazepam TAB(*) 5 MG PO ONE; +Famotidine IV* 10 MG/ML 2 ML (20 mg) IV ONE; +Famotidine IV* 10 MG/ML 2 ML (20 mg) ONE; +HYDROcodone/ACETAMIN 5-325 MG* 1 TAB PO PRN; +Ketorolac INJ* 30 MG/ML 1 ML VIAL ONE; -Ketorolac INJ* 60 MG/2 ML VIAL IM ONE; +Lactated Ringers 1000 ML Bag* 1,000 ML IV SCH; +Lidocaine 1% MPF ** 5 ML VIAL ONE; +Lidocaine 2% PF * 5 ML VIAL ONE; +Midazolam* 1 MG/ML 5 ML VIAL (5 MG) ONE; +Naloxone* 0.4 MG/ML 1 ML VIAL IV PRN; +Ondansetron INJ* 2 MG/ML VIAL ONE; +Propofol* 10 MG/ML 20 ML BTL ONE; +ROPIVACAINE 5 MG/ML 30 ML BTL (0.5%) ONE; +Ropivacaine 0.2% * 2 MG/ML VIAL ONE; +Succinylcholine* 20 MG/ML 10 ML VIAL ONE; +fentaNYL* 50 MCG/ML 2 ML VIAL (100 MCG VIAL) ONE
[2019-04-09 17:05] VITALS: BP 136/101
--- NOTE | 2019-04-09 20:23 | OP ---
DATE OF OPERATION: 04/09/19 - [facility] DATE OF : 62 SURGEON: Quentin Sanders MD HEEL ATTACHER: QUIN Mathews. An fire control assistant was needed for the entirety of the case to help with positioning, retraction, and was utilized throughout all portions of the case. ANESTHESIOLOGIST: Dr. Lanier. ANESTHESIA: General with interscalene block. PRE-OP DIAGNOSIS: Partial-thickness tear of the rotator cuff with bicipital tendinitis. POST-OP DIAGNOSES: 1. Partial-thickness tear of the rotator cuff with bicipital tendinitis. 2. Moderate glenohumeral osteoarthritis. OPERATIVE PROCEDURE: Left shoulder arthroscopy with: 1. Extensive glenohumeral debridement including chondroplasty and biceps tenotomy. 2. Subacromial decompression with acromioplasty. 3. Rotator cuff repair using Regeneten patch, size large. INDICATIONS: Keena Coates is a 59-year-old female, who injured her shoulder more than a year ago when she fell. She hurt her ankle as well as her shoulder. We have been treating her conservatively with injections and therapy. She has significant discomfort and persistent pain. The risks and benefits of surgery were discussed at length and included, but are not limited to, bleeding; infection; damage to nerves, vessels, surrounding structures; wound nonhealing; persistent pain; need for further surgery; scarring; stiffness; incomplete relief of symptoms; risks of anesthesia; as well as incomplete relief of symptoms. She has elected to proceed with surgery. IMPLANTS: Regeneten patch, size large. COMPLICATIONS: None. ESTIMATED BLOOD LOSS: Minimal. DISPOSITION: Stable. DESCRIPTION OF PROCEDURE: The patient was greeted in the preoperative area by the attending surgeon. Correct extremity was marked and consent was confirmed. The patient underwent interscalene nerve block by the anesthesiologist, after which she was brought back to the operating suite where she was placed in supine position on the operating table. She then underwent general anesthesia and endotracheal intubation, after which she was placed in the lateral decubitus position and secured with a pegboard. The left arm was draped unsterile with 10 pounds of traction and the left shoulder was then prepped and draped in the usual sterile fashion beginning with chlorhexidine soap, scrub, and alcohol wipe, and a final prep with ChloraPrep. After appropriate surgical pause indicating side, site, procedure, and administration of antibiotics, the standard posterolateral portal was made sharply with 11-blade. Scope was introduced into the joint and the joint was examined. There was abundant synovitis that was present. There was evidence of chondrosis with unstable flaps. The anterior portal was made in an outside-in fashion. Shaver was used to debride back the anterior, posterior, and superior labrum. The biceps was then tenotomized for later tenodesis due to a SLAP type 2 tear. The inferior recess was intact. She had some areas of grade 2 and 3 changes of the chondral surface. The subscap was intact. The undersurface of the supraspinatus had partial-thickness tearing. Once the debridement was complete including chondroplasty and biceps tenotomy, attention was directed to the subacromial space. With the scope positioned in the subacromial space, the lateral portal was made in an outside-in fashion. Shaver was used to debride back the abundant thick bursal tissue that was present. The undersurface of the acromion was then skeletonized using electrocautery device. A 4.0 oval bur was then used to do an acromioplasty and to remove the anterolateral hook spur. After this was done , attention was directed to the cuff. The patient had no evidence of tearing of the bursal side. Decision was made to treat this with a Regeneten patch. A size large patch was then brought to the field and placed arthroscopically through separate stab incisions. The tendon jason were placed medially. The PEEK jason were laterally. The patch was found to be well secured. Final images were obtained. The shoulder was taken through gentle range of motion. The wounds were copiously irrigated with sterile saline. The portals were closed with 3-0 nylon in interrupted fashion. Sterile dressings were applied. Cryo/Cuff as well as a regular sling was applied. She was awoken from anesthesia and transferred to the PACU in stable condition. POSTOPERATIVE PLAN: She will be nonweightbearing. She will be discharged on pain medication. DVT prophylaxis was considered, but deferred due to no previous personal or family history. We will send her out on antibiotics. I will see the patient back in 10 to 14 days. [id number]/[facility] #: [id number] [facility]ATR[facility] CENTERFrancisco J
== END | disposition home or self-care (01) ==
LOC: OR 10:57
PROVIDERS: ATTEND Orthopaedic Surgery
DX: S46.012A Strain of muscle(s) and tendon(s) of the rotator cuff of left shoulder, initial encounter (principal); M75.22 Bicipital tendinitis, left shoulder; M19.012 Primary osteoarthritis, left shoulder; G89.18 Other acute postprocedural pain; G47.33 Obstructive sleep apnea (adult) (pediatric); J45.909 Unspecified asthma, uncomplicated; K21.9 Gastro-esophageal reflux disease without esophagitis; F41.9 Anxiety disorder, unspecified; E74.39 Other disorders of intestinal carbohydrate absorption
CPT/HCPCS: C1713; J0330; J1100; J1240; J1885; J2250; J2405; J2704; J2795; J3010

== ENCOUNTER 2019-07-12 16:43 | Emergency (ER) | payer OTHER ==
[2019-07-12 16:48] VITALS: BP 143/82
--- OUTSIDE RECORDS SUMMARY | 2019-07-12 16:59 | XMS REPORT | Continuity of Care Document ---
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 - Family Medicine Care Team Information Otr Owner Operator Truck Driver [phone] Problems Active Problems Provider Date Mild recurrent [...] 10/17/2017 Localized, secondary osteoarthritis of the Quentin Snaders MD Onset: 11/20/2017 shoulder region Strain of muscle(s) and tendon(s) of the Quentin Sanders MD Onset: 11/20/2017 rotator cuff of left shoulder, subsequent encounter Degeneration of lumbar intervertebral disc Kevin Cottrell [...] of shoulder Quentin Sanders MD Onset: 07/02/2018 Strain of rotator cuff capsule Quentin Sanders MD Onset: 04/24/2019 Social History Type Date Description Comments Sex Unknown Tobacco Use Start: Unknown Never Smoked Cigarettes Smoking Status Reviewed: 07/03/19 Never Smoked Cigarettes ETOH Use Denies alcohol [...] Medications Active Medications SIG Qnty Indications Ordering Provider Date Tub Transfer Bench disp 1 tub 1units M79.604 Rosita Aguirre MD 06/26/2019 transfer bench. ht 65 wt 259 M54.5 M47.896 Bath/Shower Seat Use when 1units M79.604 Johana Ferreira, 06/10/2019 Misc showering prn N.P. Potassium Chloride ER Take one tablet 90tabs R60.0 Rosita Aguirre MD 2019 10Meq Tablets daily ER Hydrochlorothiazide 1 by mouth every 90tabs R60.0 Rosita Aguirre MD 2019 25mg Tablets day Adjust Bath/Shower Seat shower chair ht 1units M19.012 Quentin Sanders, 04/15 Misc 65 wt 259 Duloxetine HCL 2 by mouth every 60caps F33.0 Rosita Aguirre MD 12/23/[address] Part day Cyclobenzaprine HCL Take 1/2 to 1 45tabs M54.5 Ruthie Pickard MD 10/30/2018 5mg Tablets tablet by mouth ever 8 hours for spasms Hydrocodone-Acetaminophen 1 tab every 8h 14tabs M54.2 Rosita Aguirre MD 10/2017 5-325mg as needed Tablets Ventolin HFA 2 puffs by mouth 8gm J45.909 Constance 01/30/2017 108(90Base) mcg/Act four times a day MD Adithya Aerosol as needed Tylenol PM Extra Strength 1 tab by mouth Unknown 500-25mg every 6 hours as Tablets needed Aspirin 1 by mouth every Unknown 81mg Tablets DR day Dulera 2 puffs a day 8.800gm Constance 200-5mcg/Act Aerosol MD Adithya History Medications Cipro 1 by mouth 20tabs H00.015 Johana Ferreira, 06/10/2019 - 500mg Tablets twice a day for N.P. 06/20/2019 10 days Shower Bench disp 1 shower 1units S46.012A Quentin Sanders MD 04/22/2019 - bench. ht 65 wt 07/02/2019 259 Hydrocodone take 1 by mouth 30tabs Quentin Sanders MD 04/09/2019 - Bitartrate/Acetamino every 4-6 hours 05/27/2019 phen as needed for 5-325mg Tablets post op pain. Known chronic pain pt. Short term post op script. MDD 6 Cephalexin take 1 by mouth mehrdad Sanders MD 04/09/2019 - 500mg four times a 05/27/2019 Capsules day x 3 days post op Clindamycin HCL take 1 tab by mehrdad Sanders MD 04/09/2019 - 300mg mouth every 6 06/09/2019 Capsules hours x 3 days Medications Administered in Office Medication SIG Qnty Indications Ordering Provider Date Triamcinolone (Kenalog) Quentin Sanders MD 11/26/2018 Injection Triamcinolone (Kenalog) Quentin Sanders MD 07/02/2018 Injection Depomedrol 40MG Ly Varela M.D. 04/17/2018 Injection Triamcinolone (Kenalog) Quentin Sanders MD 11/20/2017 Injection Immunizations CPT Code Status Date Vaccine Lot # [id number] Given 02/05/2018 Influenza Virus Vaccine, Quadrivalent, Split, [id number] Preservative Free [id number] Given 09/28/2015 Pneumonia Vaccine [id number] Given 03/31/2014 Flu Vaccine Split Virus Preservative Free For [id number] Indiv 3Yr Older Vital Signs Date Vital Result Comment 07/03/2019 9:58am Height 65 inches 5'5" Weight 259.00 lb Heart Rate 76 /min BP Systolic 122 mmHg BP Diastolic 72 mmHg Respiratory Rate 18 /min Pain Level 3 BMI (Body Mass Index) 43.1 kg/m2 06/10/2019 11:46am Height 65 inches 5'5" Weight 265.25 lb Heart Rate 74 /min BP Systolic Sitting 122 mmHg BP Diastolic Sitting 81 mmHg Body Temperature 97.3 F O2 % BldC Oximetry 95 % BMI (Body Mass Index) 44.1 kg/m2 Results Test Acquired Date Facility Test Result H/L Range Note Laboratory test 06/02/2019 [facility] C Reactive 6.23 mg/L Normal <8.[address] [place] [address] [phone] Nuclear AB (Pam) By Ifa Igg <1:80 (Negative) 1 Rheumatoid Factor < 10 IU/mL Normal <15 TSH (Thyroid Stim Horm) 2.46 mcIU/mL Normal 0.34-5.60 T3 Total 149 ng/dL Normal 87-178 Free T4 (Free Thyroxine) 0.66 ng/dL Normal 0.61-1.12 Comp Metabolic 06/02/2019 [facility] Sodium 137 mmol/L Normal 135-[address] [place] [address] [phone] Potassium 3.3 mmol/L Low 3.5-5.0 Chloride 100 mmol/L Low 101-111 Co2 Carbon Dioxide 30 mmol/L Normal 22-32 Anion Gap 7 mmol/L Normal 2-11 Glucose 167 mg/dL High 70-100 Blood Urea Nitrogen 14 mg/dL Normal 6-24 Creatinine 0.71 mg/dL Normal 0.51-0.95 BUN/Creatinine Ratio 19.7 Normal 8-20 Calcium 9.4 mg/dL Normal 8.6-10.3 Total Protein 6.3 g/dL Low 6.4-8.9 Albumin 4.1 g/dL Normal 3.2-5.2 Globulin 2.2 g/dL Normal 2-4 Albumin/Globulin Ratio 1.9 Normal 1-3 Total Bilirubin 0.30 mg/dL Normal 0.2-1.0 Alkaline Phosphatase 73 U/L Normal 34-104 Alt 31 U/L Normal 7-52 Ast 24 U/L Normal 13-39 Egfr Non- 84.6 >60 Egfr 102.3 >60 2 Rapid Influenza 03/24/2019 [facility] Influenza A NEGATIVE Negative 3 A & B Molecular [address] [place] [address] [phone] Influenza B Molecular NEGATIVE Negative CBC Auto 03/17/2019 [facility] White Blood 4.4 10^3/uL Normal 3.5-10.[address] [place] [address] [phone] Red Blood Count 4.29 10^6/uL Normal 3.70-4.87 [...] Blood Cells % 0.1 Comp Metabolic 03/17/2019 [facility] Sodium 138 mmol/L Normal 135-145 [place] [address] [phone] Potassium 4.3 mmol/L Normal 3.5-5.0 Chloride 105 [...] Egfr Non- 78.2 >60 Egfr 94.6 >60 4 Laboratory 03/17/2019 [facility] TSH (Thyroid 2.56 Normal 0.34 -5.60 test finding [facility] Stim Horm) mcIU/[place] [address] [phone] Urinalysis 03/17/2019 [facility] [place] [address] [phone] Urine Appearance Cloudy Urine Specific [place] 1.019 Normal 1.010-1.030 Urine pH 5.0 Normal [...] Present Abnormal Absent Urine Culture And 03/17/2019 [facility] Urine Culture SEE RESULT [address] [place] [address] [phone] Order 03/13/2019 [employer] In-House EKG <pending> 1 <1:80 (Negative) REFERENCE VALUE <1:80 (Negative) Test Performed by: [facility] [address] [place] [address] Space Controller: Quan Fishman M.D. Ph.D.; [facility]# [id number] 2 Because ethnic data is not always [...] 5 Kidney failure <15 (or dialysis) 3 Powder Worker Tnt: [id number] 4 Because ethnic data is not always [...] [address]: Constance Haji MD Acct: [id number] Unit: [id number] AGE: 59 Location: LAB Re03/17/19 SEX: F Status: REG REF SPEC: [id number] HASEEB: 03/17/[address]: Constance Haji MD REQ: [id number] RECD: 03/17/19 STATUS: COMP _ SOURCE: URINE SPDESC: ORDERED: Urine Culture Procedure Result Reported Site Urine Culture Final 03/18/19- 0853 ML No Growth (<1,000 CFU/mL) * ML - Main Lab . END OF REPORT DEPARTMENT OF PATHOLOGY, [address] [place] [address] Wayne Duff M.D. Director [facility] # [id number] Procedures Date Code Description Status 04/09/2019 89109 Arthroscopy Biceps Tenodesis Completed 04/09/2019 38234 Arthroscopy Biceps Tenodesis Completed 04/09/2019 72893 Arthroscopy Shoulder,W/Rotator Cuff Repair Completed 04/09/2019 73851 Arthroscopy Shoulder,W/Rotator Cuff Repair Completed 04/09/2019 22236 Arthroscopy,Shoulder Decompression Of Subacromial Space Completed W/Acromio 04/09/2019 95517 Arthroscopy,Shoulder Decompression Of Subacromial Space Completed W/Acromio 03/13/2019 01181 EKG Tracing & Interpretation Completed 05/20/2018 29827765 Mammogram Completed 03/12/2017 41681910 Mammogram Completed 12/21/2015 54156912 Mammogram Completed 12/15/2014 12079139 Mammogram Completed 02/17/2014 92646533 Colonoscopy Completed 11/18/2013 29899174 Mammogram Completed 12/26/2011 41657174 Mammogram Completed 08/24/2010 69378196 Colonoscopy Completed Medical Devices Description No Information Available Encounters Type Date Location Provider Dx Diagnosis Office Visit 06/10/2019 [facility] Internal Johana Ferreira, H00.015 [facility] 11:40a Medicine - [facility] N.P. externum left lower eyelid L03.213 Periorbital cellulitis M79.604 Pain in right leg Office Visit 06/03/2019 11:00a [facility] Internal Rosita Aguirre MD R60.0 Local[facility] Pain in right lower leg Office Visit 05/27/2019 11:00a [facility] Internal Rosita Aguirre MD R60.0 Localized edema Medicine - [facility] Office Visit 04/07/2019 8:10a [facility] Internal Ammy Reardon, F33.0 Major depressive [facility], recurrent, mild S86.911A Strain of unsp musc/tend at lower leg level, right leg, init Office Visit 03/13/2019 8:00a [facility] Internal Constance Z01.818 Encounter for other Medicine - [facility] M75.102 Unsp rotatr-cuff tear/ruptr of left shoulder, not trauma I10 Essential (primary) hypertension R60.0 Localized edema Office Visit 02/25/2019 Kim Saavedra M19.012 Primary 10:15a Orthopedics at [facility] osteoarthritis, left [place] shoulder S46.012D Strain of musc/tend the rotator cuff of left shoulder, subs Office Visit 02/05/2019 10:40a [facility] Internal Ruthie Pickard MD F33.0 Major depressive Medicine - [facility] disorder, recurrent, mild R19.7 Diarrhea, unspecified R63.5 Abnormal weight gain Office Visit 02/04/2019 Kim Saavedra M19.012 Primary 9:45a Orthopedics at [facility] osteoarthritis, left [place] shoulder M75.42 Impingement syndrome of left shoulder Assessments Date Code Description Provider 07/03/2019 S46.012D Strain of muscle(s) and tendon(s) of the Quentin Sanders MD rotator cuff of left shoulder, subsequent encounter 07/03/2019 M75.22 Bicipital tendinitis, left shoulder Quentin Sanders MD 07/03/2019 M19.012 Primary osteoarthritis, left shoulder Quentin Sanders MD 06/10/2019 H00.015 [facility] externum left lower eyelid Johana Ferreira, N.P. 06/10/2019 L03.213 Periorbital cellulitis Johana Ferreira N.P. 06/10/2019 M79.604 Pain in right leg Johana Ferreira, N.P. 06/03/2019 R60.0 Localized edema Rosita Aguirre MD 06/03/2019 M79.661 Pain in right lower leg Rosita Aguirre MD 05/27/2019 R60.0 Localized edema Rosita Aguirre MD 04/24/2019 S46.012A Strain of muscle(s) and tendon(s) of the Quentin Sanders MD rotator cuff of left shoulder, initial encounter 04/24/2019 M75.22 Bicipital tendinitis, left shoulder Quentin Sanders MD 04/24/2019 M19.012 Primary osteoarthritis, left shoulder Quentin Sanders MD 04/09/2019 S46.012A Strain of muscle(s) and tendon(s) of the Yuly Cole PA-C rotator cuff of left shoulder, initial encounter 04/09/2019 S46.012A Strain of muscle(s) and tendon(s) of the Quentin Sanders MD rotator cuff of left shoulder, initial encounter 04/09/2019 M75.22 Bicipital tendinitis, left shoulder NICOLE Mathews 04/09/2019 M75.22 Bicipital tendinitis, left shoulder Quentin Sanders MD 04/09/2019 M19.012 Primary osteoarthritis, left shoulder Quentin Sanders MD 04/09/2019 M19.012 Primary osteoarthritis, left shoulder Yuly Cole PA-C 04/07/2019 F33.0 Major depressive disorder, recurrent, Ammy Reardon M.D. mild 04/07/2019 S86.911A Strain of unspecified muscle(s) and Ammy Reardon M.D. tendon(s) at lower leg level, right leg, initial encounter 03/25/2019 M19.012 Primary osteoarthritis, left shoulder Quentin Sanders MD 03/25/2019 S46.012D Strain of muscle(s) and tendon(s) of the Quentin Sanders MD rotator cuff of left shoulder, subsequent encounter 03/13/2019 Z01.818 Encounter for other preprocedural Constance Haji MD examination 03/13/2019 M75.102 Unspecified rotator cuff tear or rupture Constance Haji MD of left shoulder, not specified as traumatic 03/13/2019 I10 Essential (primary) hypertension Constance Haji MD 03/13/2019 R60.0 Localized edema Constance Haji MD 02/25/2019 M19.012 Primary osteoarthritis, left shoulder Quentin Sanders MD 02/25/2019 S46.012D Strain of muscle(s) and tendon(s) of the Quentin Sanders MD rotator cuff of left shoulder, subsequent encounter 02/05/2019 F33.0 Major depressive disorder, recurrent, Ruthie Pickard MD mild 02/05/2019 R19.7 Diarrhea, unspecified Ruthie Pickard MD 02/05/2019 R63.5 Abnormal weight gain Ruthie Pickard MD 02/04/2019 M19.012 Primary osteoarthritis, left shoulder Quentin Sanders MD 02/04/2019 M75.42 Impingement syndrome of left shoulder Quentin Sanders MD Plan of Treatment Future Appointment(s):09/03/2019 9:30 am - Tez Corey MD at [facility] at [id number]/17/2019 9:40 am - Rosita Aguirre MD at [facility] Internal Medicine - [facility]10/09/2019 3:45 pm - Parker Reis M.D. at [facility]07/03/2019 - Quentin Sanders MDS46.012D Strain of muscle (s) and tendon(s) of the rotator cuff of left shoulder, subsequent encounterFollow up:Follow up: Madhav 2 aabeutD84.22 Bicipital tendinitis, left aghznbtaF57.012 Primary osteoarthritis, left shoulder Functional Status Description No Information Available Mental Status Description No Information Available Referrals Refer to Reason for Referral Status Appt Date [facility] Healthy Living pt with continued weight gain, Closed 03/12 needs dietary counseling Seen in August. Will call pt to schedule. 02/24 [address] [facility] [address] [place] [id number] [phone]
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
--- OUTSIDE RECORDS SUMMARY | 2019-07-12 17:00 | XMS REPORT ---
:1960 Author Organization [facility] Address [address] [place] [address] Care Team Providers Name Role Phone Ginny Duncan Unavailable Unavailable PROBLEMS Type Condition ICD9-CM [id number] Onset Condition SNOMED Code Code Code Dates Status Problem Family history of Z80.0 Active 973066949 malignant neoplasm of digestive organs Problem Hematuria, R31.9 Active 89693439 unspecified Problem Postmenopausal N95.0 Active 09307784 bleeding Problem Family history of Z80.3 Active 599865390 malignant neoplasm of breast Problem Cervical high risk R87.810 Active [id number] human papillomavirus (HPV) DNA test positive Problem Pelvic and R10.2 Active 728023533 perineal pain Problem Other abnormal and R92.8 Active 584933780 inconclusive findings on diagnostic imaging of breast Problem 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 379916349 vulva, unspecified Problem Urinary tract N39.0 Active 12140466 infection, site not specified Problem Other microscopic R31.29 Active 873938877 hematuria ALLERGIES No Information ENCOUNTERS Encounter Location Date Diagnosis [address] Apr, [facility] [address] [place] [id number] Apr, Encounter for [facility] [address] [place], gynecological examination [place] [id number] (general) (routine) without abnormal findings Z01.419 ; Encounter for screening mammogram for malignant neoplasm of breast Z12.31 ; Encounter for screening for malignant neoplasm of colon Z12.11 ; Hematuria, unspecified R31.9 and Dysplasia of vulva, 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 [facility] 11 Mar, 2019 [facility]BGYN [place] [id number] [facility] [address] Mar, Postmenopausal bleeding [facility] [address] [place] [address], N95.0 ; Pelvic [place] [address] perineal pain R10.2 ; Hematuria, unspecified R31.9 and Encounter for screening mammogram for malignant neoplasm of breast Z12.31 [facility] Feb, Postmenopausal bleeding [facility], N95.0 ; Pelvic and [place] [id number] perineal pain R10.2 and Hematuria, unspecified R31.9 [place] [facility] [address] [place] [address] Feb, Postmenopausal bleeding [facility] [address] [place] [address], N95.0 ; Pelvic and [place] [id number] perineal pain R10.2 and Hematuria, unspecified R31.9 [facility] Jan, OBG[place] [id number] [facility] Jan, Hematuria, unspecified O[facility], R31.9 [place] [id number] [facility] Jan, OBG[place] [id number] [place] [facility] [address] [place] [address] Jan, Postmenopausal bleeding [facility] [address] [place] [address], N95.0 ; Pelvic and [place] [address] perineal pain R10.2 and Hematuria, unspecified R31.9 [facility] Jan, Leiomyoma of uterus, OBGYN [facility], unspecified D25.9 and [place] [id number] Postmenopausal bleeding N95.0 [facility] Dec, OBGYN [facility], [place] [id number] [facility] Nov, Postmenopausal bleeding O[facility], N95.0 and Pelvic [place] [address] perineal pain R10.2 [facility] Nov, O[facility]YN [facility], [place] [id number] [facility] Oct, [facility]YN [facility], [place] [id number] [place] [facility] [address] Oct, Noninflammatory disorder [address] [place], of vulva and perineum, [place] [id number] unspecified N90.9 and Dysplasia of vulva, 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 [facility] Jun, O[facility]YN [facility], [place] [id number] [facility] Jun, Postmenopausal bleeding [facility], N95.0 ; [place] [id number] uterus, unspecified D25.9 and Dysplasia of vulva, 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 [facility] Jun, [facility], N95.0 and [place] [id number] uterus, unspecified D25.9 [place] [facility] [address] [place] [address] [facility] Apr, Dysplasia of vulva, [facility] [address] [place] [address], 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 [place] [id number] [facility] Mar, OBGYN [facility], [place] [id number] [facility] Mar, [facility], N95.0 and [place] 1970[address] uterus, unspecified D25.9 [facility] [address] Mar, Postmenopausal bleeding Medical [place] [id number] N95.0 and Leiomyoma of uterus, unspecified D25.9 [facility] [address] [facility] Feb, Postmenopausal bleeding OBGYN [address] [place] [address], N95.0 [place] [id number] [place] [facility] [address] [place] [address] [facility] Feb, Encounter for OBGYN Road [address] [place], gynecological examination [place] [id number] (general) (routine) without abnormal findings Z01.419 ; Family history of malignant neoplasm of breast Z80.3 ; Family history of malignant neoplasm of digestive organs Z80.0 ; Encounter for screening for malignant neoplasm of colon Z12.11 and Encounter for screening mammogram for malignant neoplasm of breast Z12.31 [facility] Jan, [place] [id number] [place] [facility] [address] [place] [address] 20 Jan, 2018 Postmenopausal bleeding [facility] [address], N95.0 and Other [place] [id number] microscopic hematuria R31.29 [place] [facility] [address] [place] [address] 15 Dec, 2017 Postmenopausal bleeding [facility] [address], N95.0 and Other [place] [id number] microscopic hematuria R31.29 [facility] 14 Dec, 2017 Postmenopausal bleeding [facility], N95.0 and Other [place] [address] microscopic hematuria R31.29 [facility] 14 Dec, 2017 [facility], N95.0 and [place] [id number] uterus, unspecified D25.9 [place] [facility] [address] [place] [address] Nov, Urinary tract infection, [address], site not specified N39.0 [place] [id number] and Postmenopausal bleeding N95.0 [facility] Nov, [place] [id number] [place] [facility] [address] [place] [address] September, Dysplasia of vulva, [address], 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 [place] [id number] [facility] May, [place] [id number] [facility] May, [facility] essential [facility], microscopic hematuria [place] [id number] R31.1 ; Dysplasia of vulva, 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 and Dysuria R30.0 [facility] May, [place] [id number] [facility] Apr, Benign essential OBGYN [facility], microscopic hematuria [place] [address] R31.1 and Dysplasia of vulva, 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 [facility] Apr, O[place] [id number] [facility] [address] Mar, [place], [place] [id number] [facility] Mar, Dysplasia of vulva, OBGYN [facility], 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 [place] [id number] [facility] Feb, [place] [id number] [facility] Feb, Dysplasia of vulva, OBGYN [facility], 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 [place] [id number] [facility] Feb, [place] [id number] [facility] Feb, Other abnormal and [facility] inconclusive findings on [place] [id number] diagnostic imaging of breast R92.8 [facility] Feb, [place] [id number] [facility] Feb, Noninflammatory disorder OBGYN [address] [place], of vulva and perineum, [place] [id number] unspecified N90.9 and Leiomyoma of uterus, unspecified D25.9 [facility] Feb, PELVIC PAIN 625.9 O[place] [id number] [facility] Jan, OBG[place] [id number] [address] Jan, Encounter for OBGYN [address] [place], gynecological examination [place] [id number] (general) (routine) without abnormal findings Z01.419 ; Encounter for screening for malignant neoplasm of cervix Z12.4 ; Encounter for screening mammogram for malignant neoplasm of breast Z12.31 ; Encounter for screening for malignant neoplasm of colon Z12.11 ; PELVIC PAIN 625.9 ; Noninflammatory disorder of vulva and perineum, unspecified N90.9 and Family history of malignant neoplasm of breast Z80.3 [facility] Nov, [place] [id number] [facility] Dec, [place] [id number] [facility] Nov, Hematuria, unspecified [facility], R31.9 and Postmenopausal [place] 309[address] bleeding N95.0 [facility] Nov, [facility]menopausal bleeding [facility], N95.0 [place] [id number] [facility] Nov, [place] [id number] [address] Nov, Encounter for OBGYN [address] [place], gynecological examination [place] [id number] (general) (routine) without abnormal findings Z01.419 ; Encounter for screening mammogram for malignant neoplasm of breast Z12.31 ; Encounter for screening for malignant neoplasm of colon Z12.11 ; Hematuria, unspecified R31.9 ; Postmenopausal bleeding N95.0 ; Cervical high risk human papillomavirus (HPV) DNA test positive R87.810 and Family history of malignant neoplasm of digestive organs Z80.0 [facility] Dec, [place] [id number] [facility] Dec, URIN TRACT INFECTION NOS [facility], 599.0 [place] [id number] [facility] Oct, [place] [id number] [address] Oct, 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 OBN [address] [place], V72.31 ; SCREEN MALIG [place] [id number] NEOP-COLON V76.51 ; SCREEN MAMMOGRAM NEC V76.12 and HEMATURIA NOS 599.[address] Nov, CERVICAL (HPV) DNA POS [facility]BGYN [address] [place], 795.05 [place] [id number] [facility] [address] [place] [address] Nov, CERVICAL (HPV) DNA POS OBN [address] [place], 795.05 [place] [id number] [facility] Nov, [place] [id number] [facility] Apr, Postmenopausal bleeding OBN [address] [place], 627.1 ; Cervical polyp [place] [address] 622.7 and Hematuria, microscopic 599.72 [facility] Jan, [place] [id number] [address] Jan, Postmenopausal bleeding OBN [address] [place], 627.1 ; Cervical polyp [place] [id number] 622.7 and Hematuria, microscopic 599.72 [facility] [address] Jan, [place] [id number] [facility] Dec, [place] [id number] [facility] Dec, [place] [id number] [facility] Dec, [facility] bleeding [facility], 627.1 [place] [id number] [facility] Nov, [place] [id number] [facility] Nov, [place] [id number] [facility] Oct, [place] [id number] [facility] September, [place], [place] [id number] [facility] September, Postmenopausal bleeding OBGYN [facility], 627.1 and Cervical polyp [place] [id number] 622.7 [facility] September, Postmenopausal bleeding OBG[facility], 627.1 [place] [id number] [facility] September, Postmenopausal bleeding OBGYN [facility], 627.1 and Cervical polyp [place] [id number] 622.7 [facility] September, Postmenopausal bleeding OBGYN [facility], 627.1 ; Cervical polyp [place] [id number] 622.7 and Endometrial polyp 621.0 [facility] September, Postmenopausal bleeding OBGYN [facility], 627.1 [place] [id number] IMMUNIZATIONS No Known Immunizations SOCIAL HISTORY Never Assessed REASON FOR REFERRAL FUNCTIONAL STATUS PLAN OF CARE VITAL SIGNS MEDICATIONS Unknown Medications PROCEDURES No Known procedures RESULTS No Results REASON FOR VISIT October 2019 colpo Insurance Providers [facility] Member Patient Patient Patient Patient Patient Subscriber Subscriber Subscriber Group Insurance Plan Plan Plan Plan ID Relationship Address Phone Name Date of ID Name Date of No Type Insurance Insurance Insurance Coverage to Subscriber Address Phone Name Dates Agustín Michael [phone] Agustínrosa Brink [id number] [address] [address] MEDICAL (GENERAL) HISTORY Type Description Date Medical [...] pinky 1980's [facility] U[facility] [...]
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
--- OUTSIDE RECORDS SUMMARY | 2019-07-12 17:00 | XMS REPORT | Continuity of Care Document ---
:1960 External Reference #:[id number] Author Name Rosita Aguirre MD (transmitted by agent of provider Jyoti Mcgee) Address [address], [place] [address] Care Team Providers Name Role Phone Bart Shahid MD - Neurological Care Team Information Syrup Blender [phone] Surgery [facility] - Care Team Information Syrup Blender Urology [facility] - Care Team Information Syrup Blender Marketing Coordinator Hallie Bolton MD - Gastroenterology Care Team Information Syrup Blender [phone] [facility] - Sleep Disorder Care Team Information Syrup Blender Diagnostic Danny Jordan MD - Physical Care Team Information Syrup Blender Medicine & Rehabilitation Ruthie Pickard M.D. - Family Medicine Care Team Information Syrup Blender Problems Active Problems Provider Date Mild recurrent [...] Unknown Never Smoked Cigarettes Smoking Status Reviewed: 05/27/19 Never Smoked Cigarettes ETOH Use Denies alcohol [...] Medications SIG Qnty Indications Ordering Date Provider Hydrochlorothiazide 1 by mouth 7tabs R60.0 Rosita Timothy, 05/27/2019 25mg Tablets every day MD Shower Bench Disp 1 shower 1units S46.012A Quentin Sanders, 04/22/2019 bench. ht 65 wt MD 259 Adjust Bath/Shower Seat shower chair ht 1units M19.012 Quentin Sanders, 04/15 Misc 65 wt 259 Clindamycin HCL take 1 tab by 12kyle Sanders, 04/09/2019 300mg Capsules mouth every 6 MD hours x 3 days Duloxetine HCL 2 by mouth 60caps F33.0 Ruthie Pickard, 12/23/[address] Part every day Cyclobenzaprine HCL Take 1/2 to 1 45tabs M54.5 Ruthie Pickard, 10/30/2018 5mg Tablets tablet by mouth MD ever 8 hours for spasms Hydrocodone-Acetaminophen 1 tab every 8h 60tabs M54.2 Ammy 10/24/2017 5-325mg as needed Dr. Alexys M.D. Tablets Morporgue Ventolin HFA 2 puffs by 8gm J45.909 Constance 01/30/2017 108(90Base) mcg/Act mouth four MD Adithya Aerosol times a day as needed Tylenol PM Extra Strength 1 tab by mouth Unknown every 6 hours 500-25mg Tablets as needed Aspirin 1 by mouth Unknown 81mg Tablets DR every day Dulera 2 puffs a day 8.800gm [place] 200-5mcg/Act Aerosol MD Adithya History Medications Hydrocodone take 1 by 30tabs Quentin Sanders, 04/09/2019 - Bitartrate/Acetaminophen mouth every MD 05/27/2019 5-325mg Tablets 4-6 hours as needed for post op pain. Known chronic pain pt. Short term post op script. MDD 6 Cephalexin take 1 by 12capcleve Sanders, 04/09/2019 - 500mg Capsules mouth four MD 05/27/2019 times a day x 3 days post op Medications Administered in Office Medication SIG Qnty Indications Ordering Provider Date Triamcinolone (Kenalog) Quentin Sanders MD 11/26/2018 Injection Triamcinolone (Kenalog) Quentin Sanders MD 07/02/2018 Injection Depomedrol 40MG Ly Varela M.D. 04/17/2018 Injection Triamcinolone (Kenalog) Quentin Sanders MD 11/20/2017 Injection Immunizations CPT Code Status Date Vaccine Lot # [id number] Given 02/05/2018 Influenza Virus Vaccine, Quadrivalent, Split, [id number] Preservative Free 62035 Given 09/28/2015 Pneumonia Vaccine [id number] Given 03/31/2014 Flu Vaccine Split Virus Preservative Free For [id number] Indiv 3Yr Older Vital Signs Date Vital Result Comment 05/27/2019 11:11am Height 65 inches 5'5" Weight 266.00 lb Heart Rate 76 /min BP Systolic Sitting 124 mmHg BP Diastolic Sitting 84 mmHg Body Temperature 97.8 F O2 % BldC Oximetry 96 % BMI (Body Mass Index) 44.3 kg/m2 04/24/2019 10:58am Height 65 inches 5'5" Weight 259.00 lb Heart Rate 64 /min BP Systolic 136 mmHg BP Diastolic 78 mmHg Respiratory Rate 18 /min Body Temperature 97.7 F Pain Level 5 BMI (Body Mass Index) 43.1 kg/m2 Results Test Acquired Date Facility Test Result H/L Range Note Rapid Influenza 03/24/2019 [facility] Influenza A NEGATIVE Negative 1 A & B Molecular [address] [place] [address] [phone] Influenza B Molecular NEGATIVE Negative CBC Auto 03/17/2019 [facility] White Blood 4.4 10^3/uL Normal 3.5-10.[address] [place] [address] [phone] Red Blood Count 4.29 10^6/uL Normal 3.70-4.87 [...] Blood Cells % 0.1 Comp Metabolic 03/17/2019 [facility] Sodium 138 mmol/L Normal 135-[address] [place] [address] [phone] Potassium 4.3 mmol/L Normal 3.5-5.0 Chloride 105 [...] >60 Egfr 94.6 >60 2 Laboratory 03/17/2019 [facility] TSH (Thyroid 2.56 Normal 0.34 -5.60 test finding [facility] Stim Horm) mcIU/[place] [address] [phone] Urinalysis 03/17/2019 [facility] Urine Color Yellow Profile [address] [place] [address] [phone] Urine Appearance Cloudy Urine Specific Ruso 1.019 Normal 1.010-1.030 Urine pH 5.0 Normal [...] Present Abnormal Absent Urine Culture And 03/17/2019 [facility] Urine Culture SEE RESULT [address] [place], [place] [id number] [phone] Order 03/13/2019 [facility] In-House EKG <pending> 1 Brush Holder Inspector: [id number] 2 Because ethnic data is not always [...] [address]: Constance Haji MD Acct: [id number] Unit: [id number] AGE: 59 Location: LAB Re03/17/19 SEX: F Status: REG REF SPEC: [id number] HASEEB: 03/17/19-[address]: Constance Haji MD REQ: [id number] RECD: 03/17/19 STATUS: COMP _ SOURCE: URINE [facility]: ORDERED: Urine Culture Procedure Result Reported Site Urine Culture Final 03/18/19 0853 ML No Growth (<1,000 CFU/mL) * ML - Main Lab . END OF REPORT DEPARTMENT OF PATHOLOGY, [address] [place] [address] Wayne Duff M.D. Director [facility] # [id number] Procedures Date Code Description Status 04/09/2019 Arthroscopy Biceps Tenodesis Completed 04/09/2019 02237 Arthroscopy Biceps Tenodesis Completed 04/09/201907964 Arthroscopy Shoulder,W/Rotator Cuff Repair Completed 04/09/2019 Arthroscopy Shoulder,W/Rotator Cuff Repair Completed 04/09/2019 22463 Arthroscopy,Shoulder Decompression Of Subacromial Space Completed W/Acromio 04/09/2019 52167 Arthroscopy,Shoulder Decompression Of Subacromial Space Completed W/Acromio 03/13/2019 89285 EKG Tracing & Interpretation Completed 11/26/2018 58497 Inject/Drain Joint/Bursa Major W/O US Completed 05/20/2018 85327156 Mammogram Completed 03/12/2017 32640287 Mammogram Completed 12/21/2015 97329446 Mammogram Completed 12/15/2014 52252712 Mammogram Completed 02/17/2014 21727421 Colonoscopy Completed 11/18/2013 29479857 Mammogram Completed 12/26/2011 34181811 Mammogram Completed 08/24/2010 01775946 Colonoscopy Completed Medical Devices Description No Information Available Encounters Type Date Location Provider Dx Diagnosis Office Visit 04/07/2019 [facility] Internal Ammy Reardon, F33.0 Major depressive 8:10a Medicine - Ccmob M.D. disorder, recurrent, mild S86.911A Strain of unsp musc/tend at lower leg level, right leg, init Office Visit 03/13/2019 8:00a [facility] Internal Constance Z01.818 Encounter for other Medicine - MD Adithya preprocedural Ccmob examination M75.102 Unsp rotatr-cuff tear/ruptr of left shoulder, not trauma I10 Essential (primary) hypertension R60.0 Localized edema Office Visit 02/25/2019 Kim Saavedra M19.012 Primary 10:15a Orthopedics at MD Tommy osteoarthritis, left [place] shoulder S46.012D Strain of musc/tend the rotator cuff of left shoulder, subs Office Visit 02/05/2019 10:40a Sharath Pickard MD F33.0 Major depressive Medicine - Ccmob disorder, recurrent, mild R19.7 Diarrhea, unspecified R63.5 Abnormal weight gain Office Visit 02/04/2019 Kim Saavedra M19.012 Primary 9:45a Orthopedics at MD [place] osteoarthritis, left [place] shoulder M75.42 Impingement syndrome of left shoulder Office Visit 12/23/2018 9:40a Sharath Pickard MD F33.0 Major depressive Medicine - Ccmob disorder, recurrent, mild Assessments Date Code Description Provider 05/27/2019 R60.0 Localized edema Rosita Aguirre MD [...] Primary osteoarthritis, left shoulder Yuly Cole PA-C 04/09/2019 M19.012 Primary osteoarthritis, left shoulder Quentin Sanders MD 04/07/2019 F33.0 Major depressive disorder, recurrent, Ammy [...] Quentin Sanders MD Plan of Treatment Future Appointment(s):06/03/2019 11:00 am - Rosita Aguirre MD at [facility] Internal Medicine - [facility]05/29/2019 11:00 am - Quentin Sanders MD at [facility] at [facility]10/09/2019 3:45 pm - Parker Reis M.D. at [facility]07/08/2019 10:10 am - Ammy Reardon M.D. at [facility] Internal Medicine - [facility]05/27/2019 - Rosita Agiurre, MDR60.0 Localized edemaNew Medication: Hydrochlorothiazide 25 mg - 1 by mouth every dayComments:Please get labs done one day prior to the office visitFollow up:F/U 7 week Functional Status Description No Information Available Mental Status Description No Information Available Referrals Refer to Reason for Referral Status Appt Date [facility] Healthy [facility] pt with continued weight gain, Closed 03/12 needs dietary counseling Seen in August. Will call pt to schedule. 02/24 [address] [facility] [address] [place] [address] [phone]
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
--- OUTSIDE RECORDS SUMMARY | 2019-07-12 17:00 | XMS REPORT | Continuity of Care Document ---
:1960 External Reference #:[id number] Author Name Johana Ferreira N.P. (transmitted by agent of provider Tash Pearson) Address [address], [place] [address] Care Team Providers Name Role Phone Bart Shahid MD - Neurological Care Team Information Batch Records Clerk Surgery [facility] - Care Team Information Batch Records Clerk [phone] Urology [facility] - Care Team Information Batch Records Clerk [phone] Independent Trader Hallie Bolton MD - Gastroenterology Care Team Information Batch Records Clerk [facility] - Sleep Disorder Care Team Information Batch Records Clerk [phone] Diagnostic Danny Jordan MD - Physical Care Team Information Batch Records Clerk [phone] Medicine & Rehabilitation Ruthie Pickard M.D. - Family Medicine Care Team Information Batch Records Clerk Problems Active Problems Provider Date Mild recurrent [...] Unknown Never Smoked Cigarettes Smoking Status Reviewed: 06/10/19 Never Smoked Cigarettes ETOH Use Denies alcohol [...] Medications SIG Qnty Indications Ordering Date Provider Cipro 1 by mouth 20tabs H00.015 Johana Ferreira, 06/10/2019 500mg Tablets twice a day for N.P. 10 days Bath/Shower Seat Use when 1units M79.604 Johana Ferreira, 06/10/2019 Misc showering prn N.P. Potassium Chloride ER Take one tablet 90tabs R60.0 [facility], 06/03/2019 10Meq daily MD Tablets ER Hydrochlorothiazide 1 by mouth 90tabs R60.0 [facility], 05/27/2019 25mg Tablets every day MD Shower Bench Disp 1 shower 1units S46.012A Quentin Sanders, 04/22/2019 bench. ht 65 wt MD 259 Adjust Bath/Shower Seat shower chair ht 1units M19.012 Quentin Sanders, 04/15 Misc 65 wt 259 MD Duloxetine HCL 2 by mouth 60caps F33.0 [facility], 12/23/[address] Part every day Cyclobenzaprine HCL Take 1/2 to 1 45tabs M54.5 Ruthie Ipckard, 10/30/2018 5mg Tablets tablet by mouth MD [...] script. MDD 6 Cephalexin take 1 by 12caps Quentin Riveroseen, 04/09/2019 - 500mg Capsules mouth four 05/27/2019 times a day x 3 days post op Clindamycin HCL take 1 tab by mehrdad Sanders, 04/09/2019 - 300mg Capsules mouth every 6 06/09/2019 hours x 3 days Medications Administered in Office Medication SIG Qnty Indications Ordering Provider Date Triamcinolone (Kenalog) Quentin Sanders MD 11/26/2018 Injection Triamcinolone (Kenalog) Quentin Sanders MD 07/02/2018 Injection Depomedrol 40MG Ly Varela M.D. 04/17/2018 Injection Triamcinolone (Kenalog) Quentin Sanders MD 11/20/2017 Injection Immunizations CPT Code Status Date Vaccine Lot # [id number] Given 02/05/2018 Influenza Virus Vaccine, Quadrivalent, Split, [id number] Preservative Free [id number] Given 09/28/2015 Pneumonia Vaccine [id number] Given 03/31/2014 Flu Vaccine Split Virus Preservative Free For [id number] Indiv 3Yr Older Vital Signs Date Vital Result Comment 06/10/2019 11:46am Height 65 inches 5'5" Weight 265.25 lb Heart Rate 74 /min BP Systolic Sitting 122 mmHg BP Diastolic Sitting 81 mmHg Body Temperature 97.3 F O2 % BldC Oximetry 95 % BMI (Body Mass Index) 44.1 kg/m2 06/03/2019 11:03am Height 65 inches 5'5" Weight 262.00 lb Heart Rate 76 /min BP Systolic Sitting 123 mmHg BP Diastolic Sitting 80 mmHg Body Temperature 97.4 F O2 % BldC Oximetry 94 % BMI (Body Mass Index) 43.6 kg/m2 Results Test Acquired Date Facility Test Result H/L Range Note Laboratory test 06/02/2019 [facility] C Reactive 6.23 mg/L Normal <8.[address] [place] [address] [phone] Nuclear AB (Pam) By Ifa Igg <1:80 (Negative) 1 Rheumatoid Factor < 10 IU/mL Normal <15 TSH (Thyroid Stim Horm) 2.46 mcIU/mL Normal 0.34-5.60 T3 Total 149 ng/dL Normal 87-178 Free T4 (Free Thyroxine) 0.66 ng/dL Normal 0.61-1.12 Comp Metabolic 06/02/2019 [facility] Sodium 137 mmol/L Normal 135-[address] [place] [address] [phone] Potassium 3.3 mmol/L Low 3.5-5.0 Chloride 100 [...] Egfr 102.3 >60 2 Rapid Influenza 03/24/2019 [facility] Influenza A NEGATIVE Negative 3 A & B Molecular [address] [place] [address] [phone] Influenza B Molecular NEGATIVE Negative CBC Auto 03/17/2019 [facility] White Blood 4.4 10^3/uL Normal 3.5-10.[address] [place] [address] [phone] Red Blood Count 4.29 10^6/uL Normal 3.70-4.87 [...] Blood Cells % 0.1 Comp Metabolic 03/17/2019 [facility] Sodium 138 mmol/L Normal 135-[address] [place] [address] [phone] Potassium 4.3 mmol/L Normal 3.5-5.0 Chloride 105 [...] >60 Egfr 94.6 >60 4 Laboratory 03/17/2019 [facility] TSH (Thyroid 2.56 Normal 0.34 -5.60 test finding [facility] Stim Horm) mcIU/[place] [address] [phone] Urinalysis 03/17/2019 [facility] Urine Color Yellow Profile [address] [place] [address] [phone] Urine Appearance Cloudy Urine Specific [place] 1.019 Normal 1.010-1.030 Urine pH 5.0 Normal [...] Present Abnormal Absent Urine Culture And 03/17/2019 [facility] Urine Culture SEE RESULT [address] [place] [address] [phone] Order 03/13/2019 Nurse Manager In-House EKG <pending> 1 <1:80 (Negative) REFERENCE VALUE <1:80 (Negative) Test Performed by: [facility] [address] [place] [address] Casey Saw Operator: Quan Fishman M.D. Ph.D.; IA# [id number] 2 Because ethnic data is not always [...] 5 Kidney failure <15 (or dialysis) 3 Drivers License Examiner: [id number] 4 Because ethnic data is not always [...] [address]: Constance Haji MD Acct: [id number] Unit: [id number] AGE: 59 Location: LAB Re03/17/19 SEX: F Status: REG REF SPEC: [id number] HASEEB: 03/17/[address]: Constance Haji MD REQ: [id number] RECD: 03/17/19 STATUS: COMP _ SOURCE: URINE SPDESC: ORDERED: Urine Culture Procedure Result Reported Site Urine Culture Final 03/18/19- 0853 ML No Growth (<1,000 CFU/mL) * ML - Main Lab . END OF REPORT DEPARTMENT OF PATHOLOGY, [address] [place] [address] Wayne Duff M.D. Director [facility] # [id number] Procedures Date Code Description Status 04/09/2019 46302 Arthroscopy Biceps Tenodesis Completed 04/09/2019 62020 Arthroscopy Biceps Tenodesis Completed 04/09/2019 51892 Arthroscopy Shoulder,W/Rotator Cuff Repair Completed 04/09/2019 71215 Arthroscopy Shoulder,W/Rotator Cuff Repair Completed 04/09/2019 28951 Arthroscopy,Shoulder Decompression Of Subacromial Space Completed W/Acromio 04/09/2019 74336 Arthroscopy,Shoulder Decompression Of Subacromial Space Completed W/Acromio 03/13/2019 02052 EKG Tracing & Interpretation Completed 05/20/2018 [id number] Mammogram Completed 03/12/2017 [id number] Mammogram Completed 12/21/2015 [id number] Mammogram Completed 12/15/2014 [id number] Mammogram Completed 02/17/2014 [id number] Colonoscopy Completed 11/18/2013 [id number] Mammogram Completed 12/26/2011 [id number] Mammogram Completed 08/24/2010 [id number] Colonoscopy Completed Medical Devices Description No Information Available Encounters Type Date Location Provider Dx Diagnosis Office Visit 06/03/2019 Sharath Aguirre MD R60.0 Localized [facility] in right lower leg Office Visit 05/27/2019 11:00a Sharath Aguirre MD R60.0 Localized edema Medicine - [facility] Office Visit 04/07/2019 8:10a [facility] Internal Ammy Reardon, F33.0 Major depressive Medicine - [facility] M.D. disorder, recurrent, mild S86.911A Strain of unsp musc/tend at lower leg level, right leg, init Office Visit 03/13/2019 8:00a [facility] Internal Constance Z01.818 Encounter for other Medicine - MD Adithya preprocedural [facility] examination M75.102 Unsp rotatr-cuff tear/ruptr of left shoulder, not trauma I10 Essential (primary) hypertension R60.0 Localized edema Office Visit 02/25/2019 Kim Saavedra M19.012 Primary 10:15a Orthopedics at [facility] osteoarthritis, left [place] shoulder S46.012D Strain of musc/tend the rotator cuff of left shoulder, subs Office Visit 02/05/2019 10:40a [facility] Internal Ruthie Pickard MD F33.0 Major depressive Medicine - [facility] disorder, recurrent, mild R19.7 Diarrhea, unspecified R63.5 Abnormal weight gain Office Visit 02/04/2019 Kim Saavedra M19.012 Primary 9:45a Orthopedics at [facility] osteoarthritis, left [place] shoulder M75.42 Impingement syndrome of left shoulder Office Visit 12/23/2018 9:40a [facility] Internal Ruthie Pickard MD F33.0 Major depressive Medicine - [facility] disorder, recurrent, mild Assessments Date Code Description Provider 06/10/2019 H00.015 Hordeolum externum left lower eyelid [...] depressive disorder, recurrent, Ruthie Pickard MD mild Plan of Treatment Future Appointment(s):06/26/2019 9:30 am - Quentin Sanders MD at [id number]/12/2019 10:30 am - Francia Medina LMSW at [facility] Internal Medicine - [facility]07/17/2019 9:40 am - Rosita Aguirre MD at [facility] Internal Medicine - [facility]10/09/2019 3:45 pm - Parker Reis M.D. at [facility]06/10/2019 - Johana Ferreira NColletteH00.015 Hordeolum externum left lower eyelidNew Medication:Cipro 500 mg - 1 by mouth twice a day for 10 daysComments:You have a stye of your left eye. I suggest you wash your eye with baby shampoo. I have prescribed an antibiotic for you, Cipro 500 mg. Take 1 tablet twice daily for 10 days.If your eye does not gradually improve, please contact the office.L03.213 Periorbital jbpjenvvyqF08.604 Pain in right legNew Medication:Bath/Shower Seat - Use when showering prnComments:To further evaluate your leg pain I have ordered an ultrasound to rule out a blood clot. The imagingdepartment will have you wait there and speak to someone in the office to discuss your results. Functional Status Description No Information Available Mental Status Description No Information Available Referrals Refer to Reason for Referral Status Appt Date [facility] pt with continued weight gain, Closed 03/12 needs dietary counseling Seen in August. Will call pt to schedule. 02/[address] [place] [address] [address] [place] [address] [phone]
--- OUTSIDE RECORDS SUMMARY | 2019-07-12 17:00 | XMS REPORT | Continuity of Care Document ---
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 - Family Medicine Care Team Information Exchange Architect [phone] Problems Active Problems Provider Date Mild recurrent [...] Unknown Never Smoked Cigarettes Smoking Status Reviewed: 06/03/19 Never Smoked Cigarettes ETOH Use Denies alcohol [...] Medications SIG Qnty Indications Ordering Date Provider Potassium Chloride ER Take one tablet 90tabs R60.0 Rosita Aguirre, 06/03/2019 10Meq daily MD Tablets ER Hydrochlorothiazide 1 by mouth 90tabs R60.0 Rosita Aguirre, 05/27/2019 25mg Tablets every day MD Shower Bench Disp 1 shower 1units S46.012A Quentin Sanders, 04/22/2019 bench. ht 65 wt MD 259 Adjust Bath/Shower Seat shower chair ht 1units M19.012 Quentin Sanders, 04/15 Misc 65 wt 259 MD Clindamycin HCL take 1 tab by 12caps Quentin Sanders, 04/09/2019 300mg Capsules mouth every 6 MD hours x 3 days Duloxetine HCL 2 by mouth 60caps F33.0 Rosita Aguirre, 12/23/[address] Part every day [...] 6 Cephalexin take 1 by 12caps Quentin Sanders, 04/09/2019 - 500mg Capsules mouth four 05/27/2019 times a day x 3 days post op Medications Administered in Office Medication SIG Qnty Indications Ordering Provider Date Triamcinolone (Kenalog) Quentin Sanders MD 11/26/2018 Injection Triamcinolone (Kenalog) Quentin Sanders MD 07/02/2018 Injection Depomedrol 40MG Ly Varela M.D. 04/17/2018 Injection Triamcinolone (Kenalog) Quentin Sanders MD 11/20/2017 Injection Immunizations CPT Code Status Date Vaccine Lot # [id number] Given 02/05/2018 Influenza Virus Vaccine, Quadrivalent, Split, [id number] Preservative Free 90588 Given 09/28/2015 Pneumonia Vaccine [id number] Given 03/31/2014 Flu Vaccine Split Virus Preservative Free For [id number] Indiv 3Yr Older Vital Signs Date Vital Result Comment 06/03/2019 11:03am Height 65 inches 5'5" Weight 262.00 lb Heart Rate 76 /min BP Systolic Sitting 123 mmHg BP Diastolic Sitting 80 mmHg Body Temperature 97.4 F O2 % BldC Oximetry 94 % BMI (Body Mass Index) 43.6 kg/m2 05/27/2019 11:11am Height 65 inches 5'5" Weight 266.00 lb Heart Rate 76 /min BP Systolic Sitting 124 mmHg BP Diastolic Sitting 84 mmHg Body Temperature 97.8 F O2 % BldC Oximetry 96 % BMI (Body Mass Index) 44.3 kg/m2 Results Test Acquired Date Facility Test Result H/L Range Note Laboratory test 06/02/2019 [facility] C Reactive 6.23 mg/L Normal <8.[address] [place] [address] [phone] Rheumatoid Factor < 10 IU/mL Normal <15 TSH (Thyroid Stim Horm) 2.46 mcIU/mL Normal 0.34-5.60 T3 Total 149 ng/dL Normal 87-178 Free T4 (Free Thyroxine) 0.66 ng/dL Normal 0.61-1.12 Comp Metabolic 06/02/2019 [facility] Sodium 137 mmol/L Normal 135-[address] [place] [address] [phone] Potassium 3.3 mmol/L Low 3.5-5.0 Chloride 100 [...] Egfr Non- 84.6 >60 Egfr 102.3 >60 1 Rapid Influenza 03/24/2019 [facility] Influenza A NEGATIVE Negative 2 A & B Molecular [address] [place] [address] [phone] Influenza B Molecular NEGATIVE Negative CBC Auto 03/17/2019 [facility] White Blood 4.4 10^3/uL Normal 3.5-10.[address] [place] [address] [phone] Red Blood Count 4.29 10^6/uL Normal 3.70-4.87 [...] Cells % 0.1 Comp Metabolic 03/17/2019 [facility] Sodium 138 mmol/L Normal 135-145 [place] [address] [phone] Potassium 4.3 mmol/L Normal 3.5-5.0 Chloride 105 [...] Egfr Non- 78.2 >60 Egfr 94.6 >60 3 Laboratory 03/17/2019 [facility] TSH (Thyroid 2.56 Normal 0.34 -5.[address] Stim Horm) mcIU/mL [place], [place] [address] [phone] Urinalysis 03/17/2019 [facility] Urine [place] [address] [phone] Urine Appearance Cloudy Urine Specific [place] 1.019 Normal 1.010-1.030 Urine pH 5.0 Normal [...] Abnormal Absent Urine Culture And 03/17/2019 [facility] Urine Culture SEE RESULT [address] [place] [address] [phone] Order 03/13/2019 [facility] In-House EKG <pending> 1 Because ethnic data is not always [...] 5 Kidney failure <15 (or dialysis) 2 Cardroom Worker: [id number] 3 Because ethnic data is not always [...] 5 Kidney failure <15 (or dialysis) 4 SEE RESULT BELOW Name: KEENA COATES : [address]: Constance Haji MD Acct: [id number] Unit: [id number] AGE: 59 Location: LAB Re03/17/19 SEX: F Status: REG REF SPEC: [id number] HASEEB: 03/17/[address]: Constance Haji MD REQ: [id number] RECD: 03/17/19 STATUS: COMP _ SOURCE: URINE SPDESC: ORDERED: Urine Culture Procedure Result Reported Site Urine Culture Final 03/18/19852 ML No Growth (<1,000 CFU/mL) * ML - Main Lab . END OF REPORT DEPARTMENT OF PATHOLOGY, [address] [place] [address] Wayne Duff M.D. Director [facility] # [id number] Procedures Date Code Description Status 04/09/2019 68187 Arthroscopy Biceps Tenodesis Completed 04/09/2019 74929 Arthroscopy Biceps Tenodesis Completed 04/09/2019 08430 Arthroscopy Shoulder,W/Rotator Cuff Repair Completed 04/09/2019 08424 Arthroscopy Shoulder,W/Rotator Cuff Repair Completed 04/09/2019 28137 Arthroscopy,Shoulder Decompression Of Subacromial Space Completed W/Acromio 04/09/2019 79145 Arthroscopy,Shoulder Decompression Of Subacromial Space Completed W/Acromio 03/13/2019 96504 EKG Tracing & Interpretation Completed 05/20/2018 66846752 Mammogram Completed 03/12/2017 11544570 Mammogram Completed 12/21/2015 [id number] Mammogram Completed 12/15/2014 57124221 Mammogram Completed 02/17/2014 69352701 Colonoscopy Completed 11/18/2013 17709284 Mammogram Completed 12/26/2011 45835809 Mammogram Completed 08/24/2010 65312695 Colonoscopy Completed Medical Devices Description No Information Available Encounters Type Date Location Provider Dx Diagnosis Office Visit 04/07/2019 [facility] Internal Ammy Reardon, F33.0 Major depressive 8:10a Medicine - [facility] M.D. disorder, recurrent, mild S86.911A Strain of unsp musc/tend at lower leg level, right leg, init Office Visit 03/13/2019 8:00a [facility] Internal Constance Z01.818 Encounter for other Medicine - MD Adithya preprocedural [facility] examination M75.102 Unsp rotatr-cuff tear/ruptr of left shoulder, not trauma I10 Essential (primary) hypertension R60.0 Localized edema Office Visit 02/25/2019 Kim Saavedra M19.012 Primary 10:15a Orthopedics at [facility] osteoarthritis, left [place] shoulder S46.012D Strain of musc/tend the rotator cuff of left shoulder, subs Office Visit 02/05/2019 10:40a [facility] Internal Ruthie Pickard MD F33.0 Major depressive Medicine - [facility] disorder, recurrent, mild R19.7 Diarrhea, unspecified R63.5 Abnormal weight gain Office Visit 02/04/2019 Kim Saavedra M19.012 Primary 9:45a Orthopedics at [facility] [place] osteoarthritis, left [place] shoulder M75.42 Impingement syndrome of left shoulder Office Visit 12/23/2018 9:40a [facility] Internal Ruthie Pickard MD F33.0 Major depressive Medicine - [facility] disorder, recurrent, mild Assessments Date Code Description Provider 06/03/2019 R60.0 Localized edema Rosita Aguirre MD [...] Haji MD 03/13/2019 R60.0 Localized edema Constance Haij MD 02/25/2019 M19.012 Primary osteoarthritis, left shoulder [...] Pickard MD mild Plan of Treatment Future Appointment(s):07/17/2019 9:40 am - Rosita Aguirre MD at [facility] Internal Medicine - [facility]10/09/2019 3:45 pm - Parker Reis M.D. at [place] [facility]06/03/2019 - Rosita Aguirre, MDR60.0 Localized edemaNew Medication:Potassium Chloride ER 10 Meq - Take one tablet sslngH13.661 Pain in right lower legNew Therapy:Physical TherapyFollow up:F/U 4-6 weeks Functional Status Description No Information Available Mental Status Description No Information Available Referrals Refer to Dr Reason for Referral Status Appt Date [facility] pt with continued weight gain, Closed 03/12 needs dietary counseling Seen in August. Will call pt to schedule. 02/24 [address] [facility] [address] [place] [address] [phone]
[2019-07-12 17:16] LABS: Influenza A Molecular Negative (Negative); Influenza B Molecular Negative (Negative)
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
[2019-07-12] MEDS ORDERED: Albuterol 2.5 MG/3 ML NEB.SOL* (0.083%) INH ONE (18:00)
[2019-07-12] MEDS ORDERED: Benzonatate CAP* 100 MG PO ONE (18:07)
== END 2019-07-12 19:00 | disposition home or self-care (01) ==
LOC: ED 16:43
DX: J02.9 Acute pharyngitis, unspecified (principal); R05 Cough; R19.7 Diarrhea, unspecified; D64.9 Anemia, unspecified; J45.909 Unspecified asthma, uncomplicated; K21.9 Gastro-esophageal reflux disease without esophagitis; F41.9 Anxiety disorder, unspecified; F32.9 Major depressive disorder, single episode, unspecified; F43.10 Post-traumatic stress disorder, unspecified; Z86.73 Personal history of transient ischemic attack (TIA), and cerebral infarction without residual deficits; Z90.49 Acquired absence of other specified parts of digestive tract; Z98.51 Tubal ligation status; Z98.84 Bariatric surgery status; Z85.828 Personal history of other malignant neoplasm of skin; Z79.82 Long term (current) use of aspirin; Z79.899 Other long term (current) drug therapy; Z88.0 Allergy status to penicillin; Z88.1 Allergy status to other antibiotic agents; Z88.2 Allergy status to sulfonamides; Z88.5 Allergy status to narcotic agent; Z88.8 Allergy status to other drugs, medicaments and biological substances
CPT/HCPCS: 71046; 99282; A9270-GY

== ENCOUNTER 2019-09-04 13:51 | Emergency (ER) | payer OTHER ==
--- OUTSIDE RECORDS SUMMARY | 2019-09-04 14:24 | XMS REPORT | Continuity of Care Document ---
:1960 External Reference #:[id number] Author Name Tez Corey MD (transmitted by agent of provider Dwight Mederos) Address [address] [place] [address] Care Team Providers Name Role Phone Bart Shahid MD - Neurological Care Team Information Brake Operator Heavy Duty [phone] Surgery [facility] - Care Team Information Brake Operator Heavy Duty Urology [facility] - Care Team Information Brake Operator Heavy Duty [phone] House Furnishings Supervisor Hallie Bolton MD - Gastroenterology Care Team Information Brake Operator Heavy Duty [phone] [facility] - Sleep Disorder Care Team Information Brake Operator Heavy Duty [phone] Diagnostic Danny Jordan MD - Physical Care Team Information Brake Operator Heavy Duty [phone] Medicine & Rehabilitation Ruthie Pickard M.D. - Family Medicine Care Team Information Brake Operator Heavy Duty Problems Active Problems Provider Date Mild recurrent [...] Unknown Never Smoked Cigarettes Smoking Status Reviewed: 07/17/19 Never Smoked Cigarettes ETOH Use Denies alcohol [...] Misc showering prn N.P. Potassium Chloride ER take one tablet 90tabs R60.0 Rosiat Aguirre MD 2019 10Meq Tablets daily ER Hydrochlorothiazide 1 by mouth every 90tabs R60.0 Rosita Aguirre MD 2019 25mg Tablets day Adjust Bath/Shower Seat shower chair ht 1units M19.012 Quentin Sanders, 04/15 Misc 65 wt 259 Duloxetine HCL 2 by mouth every 60caps F33.0 Rosita Aguirre MD 12/23/[address] Part day Cyclobenzaprine HCL take 1/2 to 1 45tabs M54.5 Rosita Aguirre MD 10/30/2018 5mg Tablets tablet by mouth [...] CPT Code Status Date Vaccine Lot # [id number] Given 02/05/2018 Influenza Virus Vaccine, Quadrivalent, Split, [id number] Preservative Free [id number] Given 09/28/2015 Pneumonia Vaccine [id number] Given 03/31/2014 Flu Vaccine Split Virus Preservative Free For [id number] Indiv 3Yr Older Vital Signs Date Vital Result Comment 07/17/2019 9:34am Height 65 inches 5'5" Weight 260.00 lb Heart Rate 72 /min BP Systolic Sitting 119 mmHg BP Diastolic Sitting 82 mmHg Body Temperature 97.6 F O2 % BldC Oximetry 94 % BMI (Body Mass Index) 43.3 kg/m2 07/03/2019 9:58am Height 65 inches 5'5" Weight 259.00 lb Heart Rate 76 /min BP Systolic 122 mmHg BP Diastolic 72 mmHg Respiratory Rate 18 /min Pain Level 3 BMI (Body Mass Index) 43.1 kg/m2 Results Test Acquired Date Facility Test Result H/L Range Note Basic Metabolic 07/17/2019 [facility] Sodium 139 mmol/L Normal 135-[address] [place] [address] [phone] Potassium 4.0 mmol/L Normal 3.5-5.0 Chloride 104 mmol/L Normal 101-111 Co2 Carbon Dioxide 28 mmol/L Normal 22-32 Anion Gap 7 mmol/L Normal 2-11 Glucose 116 mg/dL High 70-100 Blood Urea Nitrogen 13 mg/dL Normal 6-24 Creatinine 0.79 mg/dL Normal 0.51-0.95 BUN/Creatinine Ratio 16.5 Normal 8-20 Calcium 9.3 mg/dL Normal 8.6-10.3 Egfr Non- 74.7 >60 Egfr 90.4 >60 1 Influenza A & B 07/12/2019 [facility] Flu AB Disclaimer (SEE NOTE) 2 Request [address] [place] [address] [phone] Influenza A Molecular Negative Negative Influenza B Molecular Negative Negative 3 Laboratory test 06/02/2019 [facility] C Reactive 6.23 mg/L Normal <8.01 finding [address] [facility] [place] [address] [phone] Nuclear AB (Pam) By Ifa Igg <1:80 (Negative) 4 Rheumatoid Factor < 10 IU/mL Normal <15 TSH (Thyroid Stim Horm) 2.46 mcIU/mL Normal 0.34-5.60 T3 Total 149 ng/dL Normal 87-178 Free T4 (Free Thyroxine) 0.66 ng/dL Normal 0.61-1.12 Comp Metabolic 06/02/2019 [facility] Sodium 137 mmol/L Normal 135-145 Panel [address] [place] [address] [phone] Potassium 3.3 mmol/L Low 3.5-5.0 Chloride 100 [...] Egfr Non- 84.6 >60 Egfr 102.3 >60 5 Rapid Influenza 03/24/2019 [facility] Influenza A NEGATIVE Negative 6 A & B Molecular [address] [place] [address] [phone] Influenza B Molecular NEGATIVE Negative CBC Auto 03/17/2019 [facility] White Blood 4.4 10^3/uL Normal 3.5-10.[address] [place] [address] [phone] Red Blood Count 4.29 10^6/uL Normal 3.70-4.87 [...] Blood Cells % 0.1 Comp Metabolic 03/17/2019 [facility] Sodium 138 mmol/L Normal 135-[address] [place] [address] [phone] Potassium 4.3 mmol/L Normal 3.5-5.0 Chloride 105 [...] Egfr Non- 78.2 >60 Egfr 94.6 >60 7 Laboratory 03/17/2019 [facility] TSH (Thyroid 2.56 Normal 0.34 -5.60 test finding [address] Stim Horm) mcIU/[place] [address] [phone] Urinalysis 03/17/2019 [facility] Urine Color Yellow Profile [address] [place] [address] [phone] Urine Appearance Cloudy Urine Specific [place] 1.019 Normal 1.010-1.030 Urine pH 5.0 Normal [...] Present Abnormal Absent Urine Culture And 03/17/2019 [facility] Urine Culture SEE RESULT [address] [place] [address] [phone] Order 03/13/2019 License And Permit Specialist In-House EKG <pending> 1 Because ethnic data [...] 5 Kidney failure <15 (or dialysis) 2 Suboptimal collection technique may reduce sensitivity of test. Refer to the [facility] Test Catalog for collection information: [email or web address] As with all diagnostic procedures, the laboratory results obtained should be used in conjunction with other clinical information available to the physician, including confirmation by another method, as applicable. 3 Cream Dumper: [id number] 4 <1:80 (Negative) REFERENCE VALUE <1:80 (Negative) Test Performed by: [place] [address] Interlocking Pavement Installer: Quan Fishman M.D. Ph.D.; CLIA# [id number] 5 Because ethnic data is not always [...] 5 Kidney failure <15 (or dialysis) 6 Cream Dumper: [id number] 7 Because ethnic data is not always [...] [address]: Constance Haji MD Acct: [id number] Unit: [id number] AGE: 59 Location: LAB Re03/17/19 SEX: F Status: REG REF SPEC: [id number] HASEEB: 03/17/19 [facility] DR: Constance Haji MD REQ: [id number] RECD: 03/17/19 STATUS: COMP _ SOURCE: URINE SPDESC: ORDERED: Urine Culture Procedure Result Reported Site Urine Culture Final 03/18/19- 0853 ML No Growth (<1,000 CFU/mL) * ML - Main Lab . END OF REPORT DEPARTMENT OF PATHOLOGY, [address] [place] [address] Wayne Duff M.D. Director [facility] # [id number] Procedures Date Code Description Status 04/09/2019 62602 Arthroscopy Biceps Tenodesis Completed 04/09/2019 14863 Arthroscopy Biceps Tenodesis Completed 04/09/2019 77877 Arthroscopy Shoulder,W/Rotator Cuff Repair Completed 04/09/2019 72069 Arthroscopy Shoulder,W/Rotator Cuff Repair Completed 04/09/2019 61309 Arthroscopy,Shoulder Decompression Of Subacromial Space Completed W/Acromio 04/09/2019 24185 Arthroscopy,Shoulder Decompression Of Subacromial Space Completed W/Acromio 03/13/2019 86955 EKG Tracing & Interpretation Completed 05/20/2018 [id number] Mammogram Completed 03/12/2017 [id number] Mammogram Completed 12/21/2015 [id number] Mammogram Completed 12/15/2014 [id number] Mammogram Completed 02/17/2014 [id number] Colonoscopy Completed 11/18/2013 [id number] Mammogram Completed 12/26/2011 [id number] Mammogram Completed 08/24/2010 [id number] Colonoscopy Completed Medical Devices Description No Information Available Encounters Type Date Location Provider Dx Diagnosis Office Visit 07/17/2019 [facility] Rosita Aguirre MD R60.0 Localized edema 9:40a Medicine - [facility] Office Visit 06/10/2019 [facility] Johana Ferreira, H00.015 Hordeolum 11:40a Medicine - [facility] N.P. externum left lower eyelid L03.213 Periorbital cellulitis M79.604 Pain in right leg Office Visit 06/03/2019 11:00a [facility] Rosita Aguirre MD R60.0 [facility] Pain in right lower leg Office Visit 05/27/2019 11:00a [facility] Rosita Aguirre MD R60.0 Localized edema [facility] 04/07/2019 8:10a [facility] Ammy Reardon, F33.0 Major depressive Medicine - [facility] M.D. disorder, recurrent, mild S86.911A Strain of unsp musc/tend at lower leg level, right leg, init Office Visit 03/13/2019 8:00a [facility] Constance Z01.818 Encounter for other Medicine - MD Ad[facility] M75.102 Unsp rotatr-cuff tear/ruptr of left shoulder, not trauma I10 Essential (primary) hypertension R60.0 Localized edema Assessments Date Code Description Provider 08/28/2019 M51.36 Other intervertebral disc degeneration, Renan Nam MD lumbar region 07/17/2019 R60.0 Localized edema Rosita Aguirre MD 07/03/2019 S46.012D Strain of muscle(s) and tendon(s) of the Quentin Sanders MD rotator cuff of left shoulder, subsequent encounter 07/03/2019 M75.22 Bicipital tendinitis, left shoulder Quentin Sanders MD 07/03/2019 M19.012 Primary osteoarthritis, left shoulder Quentin Sanders MD 06/10/2019 H00.015 Hordeolum externum left lower eyelid Johana Ferreira, N.P. 06/10/2019 L03.213 Periorbital cellulitis Johana Ferreira, N.P. 06/10/2019 M79.604 Pain in right leg [...] 03/13/2019 R60.0 Localized edema Constance Haji MD Plan of Treatment Future Appointment(s):12/05/2019 8:30 am - Renan Nam MD at [facility]09/30/2019 9:30 am - Lorrie Sarah NP at [facility]/22/2019 9:00 am - Ruthie Pickard MD at [facility] 3:45 pm - Parker Reis M.D. at [place] [facility]08/28/2019 - Renan Nam, MDM51.36 Other intervertebral disc degeneration, lumbar regionNew Therapy:Physical TherapyFollow up:RV in 3 months Functional Status Description No Information Available Mental Status Description No Information Available Referrals Description No Information Available
--- OUTSIDE RECORDS SUMMARY | 2019-09-04 14:24 | XMS REPORT | Continuity of Care Document ---
:1960 External Reference #:[id number] Author Name Renan Nam MD Address [address] [place] [address] Care Team Providers Name Role Phone Bart Shahid MD - Neurological Care Team Information [employer] [phone] [facility] - Care Team Information [place] Urology [facility] - Care Team Information [place] Rectifying Attendant Hallie Bolton MD - Gastroenterology Care Team Information [place] [facility] - Sleep Disorder Care Team Information [place] [employer] Diagnostic Danny Jordan MD - Physical Care Team Information [place] Medicine & Rehabilitation Ruthie Pickard M.D. - Family Medicine Care Team Information [employer] [place] [employer] Problems Active Problems Provider Date Mild recurrent [...] Bench disp 1 tub 1units M79.604 Rosita Timothy, MD 06/26/2019 transfer bench. ht 65 wt 259 M54.5 M47.896 Bath/Shower Seat Use when 1units M79.604 Johana Ferreira, 06/10/2019 Misc showering prn N.P. Potassium Chloride ER take one tablet 90tabs R60.0 Rosita Aguirre MD [...] by mouth every Unknown 81mg Tablets DR olive Dulera 2 puffs a day 8.800gm Constance [...] CPT Code Status Date Vaccine Lot # [id number] Given 02/05/2018 Influenza Virus Vaccine, Quadrivalent, Split, [id number] Preservative Free 12505 Given 09/28/2015 Pneumonia Vaccine [id number] Given 03/31/2014 Flu Vaccine Split Virus Preservative Free For [id number] Indiv 3Yr Older Vital Signs Date Vital [...] Result H/L Range Note Basic Metabolic 07/17/2019 [facility] Sodium 139 mmol/L Normal 135-[address] [place] [address] [phone] Potassium 4.0 mmol/L Normal 3.5-5.0 Chloride 104 mmol/L Normal 101-111 Co2 Carbon Dioxide 28 mmol/L Normal 22-32 Anion Gap 7 mmol/L Normal 2-11 Glucose 116 mg/dL High 70-100 Blood Urea Nitrogen 13 mg/dL Normal 6-24 Creatinine 0.79 mg/dL Normal 0.51-0.95 BUN/Creatinine Ratio 16.5 Normal 8-20 Calcium 9.3 mg/dL Normal 8.6-10.3 Egfr Non- 74.7 >60 Egfr 90.4 >60 1 Influenza A & B 07/12/2019 [facility] Flu AB Disclaimer (SEE NOTE) 2 Request [address] [place] [address] [phone] Influenza A Molecular Negative Negative Influenza B Molecular Negative Negative 3 Laboratory test 06/02/2019 [facility] C Reactive 6.23 mg/L Normal <8.01 finding [address] [facility] [place] [address] [phone] Nuclear AB (Pam) By Ifa Igg <1:80 (Negative) 4 Rheumatoid Factor < 10 IU/mL Normal <15 TSH (Thyroid Stim Horm) 2.46 mcIU/mL Normal 0.34-5.60 T3 Total 149 ng/dL Normal 87-178 Free T4 (Free Thyroxine) 0.66 ng/dL Normal 0.61-1.12 Comp Metabolic 06/02/2019 [facility] Sodium 137 mmol/L Normal 135-145 Panel [address] [place] [address] [phone] Potassium 3.3 mmol/L Low 3.5-5.0 Chloride 100 [...] Egfr 102.3 >60 5 Rapid Influenza 03/24/2019 [facility] Influenza A NEGATIVE Negative 6 A & B Molecular [address] [place] [address] [phone] Influenza B Molecular NEGATIVE Negative CBC Auto 03/17/2019 [facility] White Blood 4.4 10^3/uL Normal 3.5-10.[address] [place] [address] [phone] Red Blood Count 4.29 10^6/uL Normal 3.70-4.87 [...] Blood Cells % 0.1 Comp Metabolic 03/17/2019 [facility] Sodium 138 mmol/L Normal 135-[address] [place] [address] [phone] Potassium 4.3 mmol/L Normal 3.5-5.0 Chloride 105 [...] >60 Egfr 94.6 >60 7 Laboratory 03/17/2019 [facility] TSH (Thyroid 2.56 Normal 0.34 -5.60 test finding [address] Stim Horm) mcIU/[place] [address] [phone] Urinalysis 03/17/2019 [facility] Urine Color Yellow Profile [address] [place] [address] [phone] Urine Appearance Cloudy Urine Specific [place] 1.019 Normal 1.010-1.030 Urine pH 5.0 Normal [...] Present Abnormal Absent Urine Culture And 03/17/2019 [facility] Urine Culture SEE RESULT [address] [place] [address] [phone] Order 03/13/2019 [employer] In-House EKG <pending> 1 Because ethnic data [...] reduce sensitivity of test. Refer to the [facility] Test Catalog for collection information: [email or web address] As with all diagnostic procedures, the laboratory results obtained should be used in conjunction with other clinical information available to the physician, including confirmation by another method, as applicable. 3 Stringed Instrument Tuner: [id number] 4 <1:80 (Negative) REFERENCE VALUE <1:80 (Negative) Test Performed by: [place] [address] Ski Edge Painter: Quan Fishman M.D. Ph.D.; CLIA# [id number] 5 Because ethnic data is not always [...] 5 Kidney failure <15 (or dialysis) 6 Stringed Instrument Tuner: [id number] 7 Because ethnic data is not always [...] [address]: Constance Haji MD Acct: [id number] Unit: [id number] AGE: 59 Location: LAB Re03/17/19 SEX: F Status: REG REF SPEC: [id number] HASEEB: 03/17/[address]: Constance Haji MD REQ: [id number] RECD: 03/17/19 STATUS: COMP _ SOURCE: URINE SPDESC: ORDERED: Urine Culture Procedure Result Reported Site Urine Culture Final 03/18/19- 0853 ML No Growth (<1,000 CFU/mL) * ML - Main Lab . END OF REPORT DEPARTMENT OF PATHOLOGY, [address] [place] [address] Wayne Duff M.D. Director [facility] # [id number] Procedures Date Code Description Status 04/09/2019 79233 Arthroscopy Biceps Tenodesis Completed 04/09/2019 65503 Arthroscopy Biceps Tenodesis Completed 04/09/2019 22070 Arthroscopy Shoulder,W/Rotator Cuff Repair Completed 04/09/2019 74534 Arthroscopy Shoulder,W/Rotator Cuff Repair Completed 04/09/2019 55236 Arthroscopy,Shoulder Decompression Of Subacromial Space Completed W/Acromio 04/09/2019 42789 Arthroscopy,Shoulder Decompression Of Subacromial Space Completed W/Acromio 03/13/2019 77325 EKG Tracing & Interpretation Completed 05/20/2018 15497048 Mammogram Completed 03/12/2017 81546348 Mammogram Completed 12/21/2015 28481382 Mammogram Completed 12/15/2014 65537409 Mammogram Completed 02/17/2014 90138016 Colonoscopy Completed 11/18/2013 11235122 Mammogram Completed 12/26/2011 01190206 Mammogram Completed 08/24/2010 36308278 Colonoscopy Completed Medical Devices Description No Information Available Encounters Type Date Location Provider Dx Diagnosis Office Visit 08/28/2019 [facility] M51.36 Other intervertebral 9:30a Services [facility] Nam MD disc degeneration, lumbar region Office Visit 07/17/2019 [facility] Rosita Aguirre MD R60.0 Localized edema 9:40a Medicine - [facility] Office Visit 06/10/2019 [facility] Internal Johana Ferreira, H00.015 Hordeolum externum 11:40a [facility] left lower eyelid L03.213 Periorbital cellulitis M79.604 Pain in right leg Office Visit 06/03/2019 11:00a [facility] Internal Rosita Aguirre MD R60.0 Localized edema [facility] M79.661 Pain in right lower leg Office Visit 05/27/2019 11:00a [facility] Internal Rosita Aguirre MD R60.0 Localized edema Medicine [facility] Office Visit 04/07/2019 8:10a [facility] Internal Ammy Reardon, F33.0 Major depressive Medicine - [facility] M.[facility] disorder, recurrent, mild S86.911A Strain of unsp musc/tend at lower leg level, right leg, init Office Visit 03/13/2019 8:00a [facility] Internal Constance Z01.818 Encounter for other Medicine - MD Adithya preprocedural [facility] examination M75.102 Unsp rotatr-cuff tear/ruptr of left [...] Constance Haji MD Plan of Treatment Future Appointment(s):09/30/2019 9:30 am - Lorrie Sarah NP at [facility]10/22/2019 9:00 am - Ruthie Pickard MD at [facility] Internal Medicine - [facility]09/03/2019 9:30 am - Tez Corey MD at [facility] at Iwcivn8010/09/2019 3:45 pm - Parker Reis M.D. at [facility]08/28/2019 - Renan Nam, MDM51.36 Other intervertebral disc degeneration, lumbar regionNew Xrays:MRI Lumbar Spine W/O, Ordered: 08/28/19P Lumbar Ap//Lat 2-3 Views, Ordered: 08/28/19New Therapy: Physical TherapyFollow up:RV in 3 months Functional Status Description No Information Available Mental Status Description No Information Available Referrals Description No Information Available
--- OUTSIDE RECORDS SUMMARY | 2019-09-04 14:24 | XMS REPORT | Continuity of Care Document ---
:1960 External Reference #:[id number] Author Name Rosita Aguirre MD (transmitted by agent of provider Tash Pearson) Address [address] [facility], [place] [address] Care Team Providers Name Role Phone Bart Shahid MD - Neurological Care Team Information [employer] [facility] - Care Team Information Super[employer] Urology [facility] - Care Team Information Supervisor [employer] [phone] Statement [place]er[place] Supervisor Hallie Bolton MD - Gastroenterology Care Team Information Supervisor [employer] [facility] - Sleep Disorder Care Team Information [employer] Diagnostic Danny Jordan MD - Physical Care Team Information [employer] Medicine & Rehabilitation Ruthie Pickard M.D. - Family Medicine Care Team Information [employer] Problems Active Problems Provider Date Mild recurrent [...] CPT Code Status Date Vaccine Lot # [id number] Given 02/05/2018 Influenza Virus Vaccine, Quadrivalent, Split, [id number] Preservative Free 35080 Given 09/28/2015 Pneumonia Vaccine [id number] 30883 Given 03/31/2014 Flu Vaccine Split Virus Preservative Free For 674171 Indiv 3Yr Older Vital Signs Date Vital [...] Date Facility Test Result H/L Range Note Influenza A & B 07/12/2019 [facility] Flu AB (SEE NOTE) [address] [place] [address] [phone] Influenza A Molecular Negative Negative Influenza B Molecular Negative Negative 2 Laboratory test 06/02/2019 [facility] C Reactive 6.23 mg/L Normal <8.[address] [place] [address] [phone] Nuclear AB (Pam) By Ifa Igg <1:80 (Negative) 3 Rheumatoid Factor < 10 IU/mL Normal <15 TSH (Thyroid Stim Horm) 2.46 mcIU/mL Normal 0.34-5.60 T3 Total 149 ng/dL Normal 87-178 Free T4 (Free Thyroxine) 0.66 ng/dL Normal 0.61-1.12 Comp Metabolic 06/02/2019 [facility] Sodium 137 mmol/L Normal 135-[address] [place] [address] [phone] Potassium 3.3 mmol/L Low 3.5-5.0 Chloride 100 [...] Egfr Non- 84.6 >60 Egfr 102.3 >60 4 Rapid Influenza 03/24/2019 [facility] Influenza A NEGATIVE Negative 5 A & B Molecular [address] [place] [address] [phone] Influenza B Molecular NEGATIVE Negative CBC Auto 03/17/2019 [facility] White Blood 4.4 10^3/uL Normal 3.5-10.[address] [place] [address] [phone] Red Blood Count 4.29 10^6/uL Normal 3.70-4.87 [...] Blood Cells % 0.1 Comp Metabolic 03/17/2019 [facility] Sodium 138 mmol/L Normal 135-[address] [place] [address] [phone] Potassium 4.3 mmol/L Normal 3.5-5.0 Chloride 105 [...] Egfr Non- 78.2 >60 Egfr 94.6 >60 6 Laboratory 03/17/2019 [facility] TSH (Thyroid 2.56 Normal 0.34 -5.60 test finding [address] Stim Horm) mcIU/[place] [address] [phone] Urinalysis 03/17/2019 [facility] Urine Color Yellow Profile [address] [place] [address] [phone] Urine Appearance Cloudy Urine Specific [place] 1.019 Normal 1.010-1.030 Urine pH 5.0 Normal [...] Present Abnormal Absent Urine Culture And 03/17/2019 [facility] Urine Culture SEE RESULT [address] [place] [address] [phone] Order 03/13/2019 [employer] In-House EKG <pending> 1 Suboptimal collection technique may reduce sensitivity of test. Refer to the [facility] Test Catalog for collection information: [email or web address] As with all diagnostic procedures, the laboratory results obtained should be used in conjunction with other clinical information available to the physician, including confirmation by another method, as applicable. 2 Hr Receptionist: [id number] 3 <1:80 (Negative) REFERENCE VALUE <1:80 (Negative) Test Performed by: [facility] [address] [place] [address] Service Rig Operator: Quan Fishman M.D. Ph.D.; CLIA# [id number] 4 Because ethnic data is not always [...] 5 Kidney failure <15 (or dialysis) 5 Hr Receptionist: [id number] 6 Because ethnic data is not always readily [...] 15-29 5 Kidney failure <15 (or dialysis) 7 SEE RESULT BELOW Name: KEENA COATES : [address]: Constance Haji MD Acct: [id number] Unit: [id number] AGE: 59 Location: LAB Re03/17/19 SEX: F Status: REG REF SPEC: [id number] HASEEB: 03/17/[address]: Constance Haji MD REQ: [id number] RECD: 03/17/19 STATUS: COMP _ SOURCE: URINE SPDESC: ORDERED: Urine Culture Procedure Result Reported Site Urine Culture Final 03/18/19- 0853 ML No Growth (<1,000 CFU/mL) * ML - Main Lab . END OF REPORT DEPARTMENT OF PATHOLOGY, [address] [place] [address] Wayne Duff M.D. Director [facility] # [id number] Procedures Date Code Description Status 04/09/2019 40686 Arthroscopy Biceps Tenodesis Completed 04/09/2019 31486 Arthroscopy Biceps Tenodesis Completed 04/09/2019 17594 Arthroscopy Shoulder,W/Rotator Cuff Repair Completed 04/09/2019 34464 Arthroscopy Shoulder,W/Rotator Cuff Repair Completed 04/09/2019 76936 Arthroscopy,Shoulder Decompression Of Subacromial Space Completed W/Acromio 04/09/2019 86359 Arthroscopy,Shoulder Decompression Of Subacromial Space Completed W/Acromio 03/13/2019 65517 EKG Tracing & Interpretation Completed 05/20/2018 84107076 Mammogram Completed 03/12/2017 10373709 Mammogram Completed 12/21/2015 21361109 Mammogram Completed 12/15/2014 65498613 Mammogram Completed 02/17/2014 06917852 Colonoscopy Completed 11/18/2013 32684687 Mammogram Completed 12/26/2011 25364996 Mammogram Completed 08/24/2010 68312569 Colonoscopy Completed Medical Devices Description No Information Available Encounters Type Date Location Provider Dx Diagnosis Office Visit 06/10/2019 [facility] Internal Johana Jhon, H00.015 Hordeolum 11:40a Medicine - [facility] N.P. externum left lower eyelid L03.213 Periorbital cellulitis M79.604 Pain in right leg Office Visit 06/03/2019 11:00a [facility] Internal Rosita Aguirre MD R60.0 Localized edema Medicine - [facility] M79.661 Pain in right lower leg Office Visit 05/27/2019 11:00a [facility] Internal Rosita Aguirre MD R60.0 Localized edema Medicine - [facility] Office Visit 04/07/2019 8:10a [facility] Internal Ammy Reardon, F33.0 Major depressive Medicine - [facility] M.D. disorder, recurrent, mild S86.911A Strain of unsp musc/tend at lower leg level, right leg, init Office Visit 03/13/2019 8:00a [facility] Internal Constance Z01.818 Encounter for other Medicine - MD Adithya preprocedural [facility] examination M75.102 Unsp rotatr-cuff tear/ruptr of left shoulder, not trauma I10 Essential (primary) hypertension R60.0 Localized edema Office Visit 02/25/2019 Kim Saavedra M19.012 Primary 10:15a Orthopedics at [facility] osteoarthritis, left [place] shoulder S46.012D Strain of musc/tend the rotator cuff of left shoulder, subs Office Visit 02/05/2019 10:40a [facility] Internal Ruthie Pickard MD F33.0 Major depressive Medicine - [facility] disorder, recurrent, mild R19.7 Diarrhea, unspecified R63.5 Abnormal weight gain Office Visit 02/04/2019 Kim Saavedra M19.012 Primary 9:45a Orthopedics at [facility] osteoarthritis, left [place] shoulder M75.42 Impingement syndrome of left shoulder Assessments Date Code Description Provider 07/17/2019 R60.0 Localized edema Rosita Timothy, MD 07/03/2019 S46.012D Strain of muscle(s) and [...] Quentin Sanders MD Plan of Treatment Future Appointment(s):10/22/2019 9:00 am - Ruthie Pickard MD at [facility] Internal Medicine - [facility]08/07/2019 8:00 am - Lorrie Sraah NP at [facility]09/03/2019 9:30 am - Tez Corey MD at [facility] at [facility]0710/09/2019 3:45 pm - Parker Reis M.D. at [facility]07/17/2019 - Rosita Aguirre, MDR60.0 Localized edemaComments:Continue to take the same meds. Please get labs done today. If they are normal, I will send in refills of your medication.Follow up:F/U 2-[address] Pickard Functional Status Description No Information Available Mental Status Description No Information Available Referrals Refer to Dr Reason for Referral Status Appt Date [facility] pt with continued weight gain, Closed 03/12 needs dietary counseling Seen in August. Will call pt to schedule. 02/24 [address] [facility] [address] [place] [address] [phone]
[2019-09-04] MEDS ORDERED: NS 0.9% 1000 ML** 1,000 ML IV ONE (14:44)
[2019-09-04] MEDS ORDERED: diPHENhydraMINE IV* 50 MG/ML 1 ml VIAL (BENADRYL) IV ONE (14:44)
[2019-09-04] MEDS ORDERED: Ketorolac INJ* 30 MG/ML 1 ML VIAL IV ONE (14:45)
[2019-09-04] MEDS ORDERED: PROCHLORPERAZINE INJ 5 MG/ML 2 ML VIAL IV ONE (14:45)
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
[2019-09-04 15:34] LABS: ABS Basophils 0.1 10^3/ul (0-0.2); ABS Eosinophils 0.1 10^3/ul (0-0.6); ABS Lymphocytes 1.6 10^3/ul (1.0-4.8); ABS Monocytes 0.5 10^3/ul (0-0.8); ABS Neutrophils 2.1 10^3/ul (1.5-7.7); Eosinophil % 3.1 %; Hematocrit 41 % (35-47); Hemoglobin 14.2 g/dL (12.0-16.0); Lymphocyte % 35.5 %; Mean Corpuscular HGB Conc 35 g/dL (31-36); Mean Corpuscular Hemoglobin 34 pg (27-31); Mean Corpuscular Volume 98 fL (80-97); Mean Platelet Volume 9.6 fL (7.4-10.4); Platelet Count 170 10^3/uL (150-450); Red Blood Count 4.21 10^6 /uL (3.70-4.87); Red Cell Distribution Width 14 % (10-15); White Blood Count 4.4 10^3/uL (3.5-10.8)
[2019-09-04 16:12] LABS: Albumin 4.2 g/dL (3.2-5.2); Calcium 9.3 mg/dL (8.6-10.3); Total Bilirubin 0.5 mg/dL (0.2-1.0)
[2019-09-04 16:18] LABS: Albumin/Globulin Ratio 1.9 (1-3); BUN/Creatinine Ratio 21.3 (8-20); EGFR Non-African American 79.4 (>60); Globulin 2.2 g/dL (2-4); Total Protein 6.4 g/dL (6.4-8.9)
[2019-09-04 16:56] VITALS: BP 121/67
== END 2019-09-04 16:56 | disposition home or self-care (01) ==
LOC: ED 13:51
DX: R51 Headache (principal); R53.83 Other fatigue; Z79.82 Long term (current) use of aspirin; R53.1 Weakness; K21.9 Gastro-esophageal reflux disease without esophagitis; F41.9 Anxiety disorder, unspecified; Z79.899 Other long term (current) drug therapy; Z88.0 Allergy status to penicillin; Z86.73 Personal history of transient ischemic attack (TIA), and cerebral infarction without residual deficits; Z85.828 Personal history of other malignant neoplasm of skin
CPT/HCPCS: 36415; 80053; 85025; 96361; 96374; 96375; 99283; J0780; J1200; J1885

== ENCOUNTER 2020-01-06 05:45 | Inpatient (IN) ==
[2020-01-06] MEDS ORDERED: Lactated Ringers 1000 ml BAG 1,000 ML IV SCH (06:00)
[2020-01-06] MEDS ORDERED: Dexamethasone IV 4 MG/ML VIAL 1 ml VIAL IV SLOW PU ONE (06:00)
[2020-01-06] MEDS ORDERED: Buffered Lidocaine 1% SYRIN 1 ml INTRADERM ONE ×2 (06:00→06:18)
[2020-01-06] MEDS ORDERED: Heparin 5000 UNITS/ML 1 mL VIAL ONE (06:18)
[2020-01-06] MEDS ORDERED: Dexamethasone IV 4 MG/ML VIAL 1 ml VIAL ONE ×2 (06:18→06:56)
[2020-01-06] MEDS ORDERED: Clindamycin 900 MG/D5W BAG 900 MG/50 ML BAG IVPB ONE (06:18)
[2020-01-06] MEDS ORDERED: Sevoflurane BOTTLE ONE (06:53)
[2020-01-06] MEDS ORDERED: EPHEDrine (Pressors) 50 MG/ML VIAL ONE (06:56)
[2020-01-06] MEDS ORDERED: Sterile Water for Inj 10 ML ONE (06:56)
[2020-01-06] MEDS ORDERED: Rocuronium 50 mg VIAL 10 mg/ml 5 ml VIAL (50 mg) ONE ×2 (06:56→08:36)
[2020-01-06] MEDS ORDERED: Ondansetron 4 mg VIAL 2 MG/ML 2 ml VIAL ONE (06:56)
[2020-01-06] MEDS ORDERED: Lidocaine 2% PF 5 ML VIAL ONE (06:56)
[2020-01-06] MEDS ORDERED: Metoclopramide 5 MG/ML VIAL (10 mg) ONE (06:56)
[2020-01-06] MEDS ORDERED: fentaNYL 250 mcg/5 ml 50 MCG/ML 5 ml VIAL (250 MCG) ONE ×2 (06:56→09:16)
[2020-01-06] MEDS ORDERED: Midazolam 2 mg/2 ml VIAL 1 mg/ml 2 ml VIAL (2 mg) ONE (06:56)
[2020-01-06] MEDS ORDERED: Propofol 10 MG/ML 20 ML BTL ONE (07:01)
[2020-01-06] MEDS ORDERED: Glycopyrrolate IV 0.2 MG/ML 1 ML VIAL ONE (07:03)
[2020-01-06] MEDS ORDERED: Bupivacaine 0.25% EPI 200,000 30 ML SDV ONE (07:16)
[2020-01-06] MEDS ORDERED: Acetaminophen IV 1 GM/100ML 100 ML ONE (07:45)
[2020-01-06] MEDS ORDERED: Naloxone 0.4 mg VIAL 0.4 mg/ml 1 ml VIAL IV PRN (08:01)
[2020-01-06] MEDS ORDERED: Ondansetron 4 mg VIAL 2 MG/ML 2 ml VIAL IV PRN ×2 (08:01→12:51)
[2020-01-06] MEDS ORDERED: fentaNYL 100 mcg/2 ml 50 MCG/ML VIAL IV PRN (08:01)
[2020-01-06] MEDS ORDERED: Desflurane 240 ML INH ONE (10:18)
[2020-01-06] MEDS ORDERED: Sugammadex 500 MG/5 ML 5 ml VIAL IV PUSH ONE (12:19)
[2020-01-06] MEDS ORDERED: Albuterol/Ipratropium NEB.SOL (2.5/0.5 MG) 3 ML NEB.SOLN INH PRN (12:56)
[2020-01-06] MEDS ORDERED: fentaNYL 100 mcg/2 ml 50 MCG/ML VIAL ONE (13:07)
[2020-01-06] MEDS: Lactated Ringers 1000 ml BAG 1,000 ML IV SCH ×2 (14:12→22:26)
[2020-01-07] MEDS: Lactated Ringers 1000 ml BAG 1,000 ML IV SCH (05:49)
[2020-01-07] MEDS: Heparin 5000 UNITS/ML 1 mL VIAL SUBCUT SCH ×3 (05:53→22:17)
[2020-01-07] MEDS: D5W 1/2 NS KCl 20 meq 1000 ml 1,000 ML IV SCH ×2 (12:27→21:17)
[2020-01-07] MEDS ORDERED: HYDROcodone/ACET. 7.5/325 LIQ 15 ML UDC PO PRN (13:45)
[2020-01-07] MEDS ORDERED: Pantoprazole VIAL 40 MG VIAL IV ONE (16:54)
[2020-01-08] MEDS: Heparin 5000 UNITS/ML 1 mL VIAL SUBCUT SCH (05:38)
[2020-01-08] MEDS: D5W 1/2 NS KCl 20 meq 1000 ml 1,000 ML IV SCH (05:38)
[2020-01-08 07:32] VITALS: BP 121/79
[2020-01-09] MEDS ORDERED: Scopolamine PATCH Remove NOTE PATCH OFF ONE (06:00)
== END 2020-01-08 10:51 | disposition home or self-care (01) | DRG 403 ==
LOC: AA 05:45 → SSU 14:10
PROVIDERS: ADMIT Surgery; ATTEND Surgery

== ENCOUNTER 2024-04-19 11:38 | Observation (INO) ==
[2024-04-19] MEDS: Iodixanol 320 (CONTRAST) 100 ML SDV IV ONE (12:03)
[2024-04-19 12:20] LABS: ABS Basophils 0.1 10^3/uL (0.0-0.1); ABS Eosinophils 0.1 10^3/uL (0.0-0.5); ABS Lymphocytes 2.3 10^3/uL (1.0-4.8); ABS Monocytes 0.5 10^3/uL (0.0-0.9); ABS Neutrophils 3.7 10^3/uL (1.5-7.6); ABS Nucleated RBC 0.01 10^3/ul; Hematocrit 40.9 % (35-45); Hemoglobin 14.1 g/dL (11.5-14.3); Lymphocyte % 34.4 %; Mean Corpuscular Hemoglobin 33.5 pg (27-33); Mean Corpuscular Hgb Conc 34.5 g/dL (31-36); Mean Corpuscular Volume 97.1 fL (80-97); Mean Platelet Volume 9.4 fL (7.5-11.2); Nucleated Red Blood Cells % 0.1 %/100WBC (0.0-0.8); Platelet Count 212 10^3/uL (150-450); Red Blood Count 4.22 10^6/uL (3.63-4.92); Red Cell Distribution Width 14.1 % (12-17); White Blood Count 6.7 10^3/uL (3.8-11.8)
[2024-04-19 13:02] LABS: Albumin 4.4 g/dL (3.2-5.2); Albumin/Globulin Ratio 1.9 (1-3); Calcium 9.7 mg/dL (8.6-10.3); Creatinine, Serum 0.74 mg/dL (0.51-0.95); Globulin 2.3 g/dL (2-4); HDL Cholesterol 66.3 mg/dL; Indirect Bilirubin 0.4 mg/dL (0.3-1.0); Potassium 3.9 mmol/L (3.5-5.0); Total Bilirubin 0.4 mg/dL (0.2-1.0); Total Protein 6.7 g/dL (6.4-8.9); eGFR CKD-EPI 90.9 (>60)
[2024-04-19 13:13] LABS: Activated Partial Thrombo Time 30.8 seconds (26.0-38.0); INR 1.04 (0.85-1.14)
[2024-04-19 14:15] LABS: Urine Appearance Clear; Urine Bacteria Absent /HPF (Absent); Urine Bilirubin Negative (Negative); Urine Blood 1+ (Negative); Urine Color Light-Yellow; Urine Glucose Negative (Negative); Urine Ketones Negative (Negative); Urine Nitrite Negative (Negative); Urine Protein Negative (Negative); Urine Red Blood Cell 1+(3-5/hpf) /HPF (0-Trace); Urine Specific Gravity >1.050 (1.002-1.030); Urine Squamous Epithelial Cell Present /HPF (Absent); Urine Urobilinogen Negative (Negative); Urine White Blood Cell Trace(0-5/hpf) /HPF (0-Trace)
[2024-04-19] MEDS: Lactated Ringers 1000 ml BAG IV.FLUID IV ONE (15:17)
[2024-04-19] MEDS ORDERED: HYDROcodone/ACETAMIN 5/325 mg TAB PO PRN (18:09)
[2024-04-19] MEDS ORDERED: Albuterol HFA INHALER 8 gm MDI INH PRN (18:09)
[2024-04-19] MEDS ORDERED: Dextrose 50% Syringe 50 ml 25 GM/50 ML SYRINGE IV PUSH PRN (18:20)
[2024-04-19] MEDS ORDERED: Sulfur Hexaflouride MICROSPHR 25 MG VIAL IV PRN (18:21)
[2024-04-19] MEDS: Mometasone/Formoter 200/5 MDI INH SCH (20:11)
[2024-04-20 06:35] LABS: ABS Basophils 0.1 10^3/uL (0.0-0.1); ABS Eosinophils 0.1 10^3/uL (0.0-0.5); ABS Lymphocytes 2.2 10^3/uL (1.0-4.8); ABS Monocytes 0.6 10^3/uL (0.0-0.9); ABS Neutrophils 2.5 10^3/uL (1.5-7.6); Eosinophil % 1.6 %; Hematocrit 39.6 % (35-45); Hemoglobin 13.8 g/dL (11.5-14.3); Lymphocyte % 40.6 %; Mean Corpuscular Hemoglobin 33.2 pg (27-33); Mean Corpuscular Hgb Conc 34.8 g/dL (31-36); Mean Corpuscular Volume 95.4 fL (80-97); Mean Platelet Volume 9.5 fL (7.5-11.2); Platelet Count 183 10^3/uL (150-450); Red Blood Count 4.15 10^6/uL (3.63-4.92); Red Cell Distribution Width 13.7 % (12-17); White Blood Count 5.4 10^3/uL (3.8-11.8)
[2024-04-20 06:57] LABS: Albumin 4.1 g/dL (3.2-5.2); Albumin/Globulin Ratio 1.9 (1-3); Calcium 9.4 mg/dL (8.6-10.3); Creatinine, Serum 0.7 mg/dL (0.51-0.95); Globulin 2.2 g/dL (2-4); Magnesium 1.9 mg/dL (1.9-2.7); Total Bilirubin 0.5 mg/dL (0.2-1.0); Total Protein 6.3 g/dL (6.4-8.9); eGFR CKD-EPI 97.1 (>60)
[2024-04-20 14:07] VITALS: BP 113/68
== END 2024-04-20 17:30 | disposition home or self-care (01) ==
LOC: EDHOLD 11:38 → ED 11:38 → MEDTELE 20:47
PROVIDERS: ADMIT Student in an Organized Health Care Education/Training Program; ATTEND Student in an Organized Health Care Education/Training Program